=== PATIENT | male | born 1930 | race Caucasian/White ===

== ENCOUNTER 2018-10-07 19:47 | Emergency (ER) | payer MEDICARE, OTHER ==
[2018-10-07 20:06] VITALS: BP 121/81; PULSE 104
[2018-10-07] MEDS ORDERED: Sodium Chloride 0.9% 10 ML Syringe FLUSH PRN (20:06)
[2018-10-07] MEDS ORDERED: methylPREDNISolone Sodium Succinate 125 MG/2 ML SDV IVPUSH ONE (20:09)
[2018-10-07] MEDS ORDERED: diphenhydrAMINE 50 MG/ML SDV IVPUSH ONE (20:10)
[2018-10-07] MEDS ORDERED: Sodium Chloride 0.9% 1,000 ML IV SCH (20:15)
--- NOTE | 2018-10-07 20:57 | EDM.PDOC ---
ED HPI GENERAL MEDICAL PROBLEM - General Chief Complaint: Bite:Animal, Insect Stated Complaint: BEE STING ALLERGIC REACTION Time Seen by Provider: 10/07/18 20:03 Source of Information: Reports: Patient History Limitations: Reports: No Limitations - History of Present Illness INITIAL COMMENTS - FREE TEXT/NARRATIVE: stung by a bee, left eye. 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 He denies chest pain, sob, tongue or throat swelling- no increased WOB. Onset: Today Location: Reports: Face (left eye) Severity: Moderate Improves with: Reports: None Worsens with: Reports: None - Related Data Allergies Allergy/AdvReac Type Severity Reaction Status Date / Time propoxyphene HCl Allergy Nausea and Verified 10/07/18 19:58 [From Darvon] Vomiting venom-honey bee Allergy Anaphylactic Verified 10/07/18 19:58 [bee venom (honey bee)] Shock Home Meds: Home Meds Aspirin [Adult Low Dose Aspirin EC] 81 mg PO DAILY 02/17/13 [History] Lisinopril/Hydrochlorothiazide [Lisinopril-Hctz 20-25 mg Tab] 20 - 25 mg PO DAILY 02/17/13 [History] Propafenone [Rythmol] 225 mg PO DAILY 02/17/13 [History] Simvastatin [Zocor] 20 mg PO DAILY 02/17/13 [History] amLODIPine [Norvasc] 10 tab PO DAILY 02/17/13 [History] Past Medical History HEENT History: Reports: Macular Degeneration Cardiovascular History: Reports: Afib, CAD, High Cholesterol, Hypertension, [place] Respiratory History: Reports: Sleep Apnea Other Respiratory History: c-pap - Past Surgical History HEENT Surgical History: Reports: Oral Surgery Other HEENT Surgeries/Procedures: dentures GI Surgical History: Reports: Hernia Repair/Other Musculoskeletal Surgical History: Reports: Knee Replacement Other Musculoskeletal Surgeries/Procedures:: right and left Social & Family History - Tobacco Use Smoking Status *Q: Former Smoker Used Tobacco, but Quit: Yes Month/Year Tobacco Last Used: quit at age 44 - Caffeine Use Caffeine Use: Reports: Coffee - Recreational Drug Use Recreational Drug Use: No ED ROS GENERAL - Review of Systems Review Of Systems: See Below Constitutional: Reports: No Symptoms HEENT: Reports: Eye Pain (more itching than pain, is red and swollen) Respiratory: Reports: No Symptoms Cardiovascular: Reports: No Symptoms GI/Abdominal: Reports: No Symptoms : Reports: No Symptoms Musculoskeletal: Reports: No Symptoms Skin: Reports: Urticaria (left eye, swelling, red and itchy) Neurological: Reports: No Symptoms Psychiatric: Reports: No Symptoms Hematologic/Lymphatic: Reports: No Symptoms ED EXAM, ANIMAL BITE - Physical Exam Exam: See Below Exam Limited By: No Limitations General Appearance: Alert, WD/WN, No Apparent Distress Eye Exam: Left Eye: Other (left eye lid is swollen shut; red, warm and itchy; no discharge), Bilateral Eye: EOMI, PERRL Throat/Mouth: Normal Inspection, Normal Lips, Normal Teeth, Normal Gums, Normal Oropharynx, Normal Voice, No Airway Compromise Head: Atraumatic, Normocephalic Neck: Normal Inspection, Supple, Non-Tender Respiratory/Chest: No Respiratory Distress, Lungs Clear, Normal Breath Sounds Cardiovascular: Normal Peripheral Pulses, Regular Rate, Rhythm GI/Abdominal: Normal Bowel Sounds, Soft, Non-Tender Extremities: Normal Inspection, Normal Range of Motion, Non-Tender Neurological: Alert, Oriented, CN II-XII Intact, Normal Cognition, Normal Gait Psychiatric: Normal Affect, Normal Mood Skin Exam: Normal Color, Warm/Dry Course - Vital Signs Last Recorded V/S: Last Vital Signs Temp 97.9 F 10/07/18 19:55 Pulse 104 H 10/07/18 19:55 Resp 16 10/07/18 19:55 BP 121/81 10/07/18 19:55 Pulse Ox 95 10/07/18 19:55 - Orders/Labs/Meds Orders: Active Orders 24 hr Category Date Time Status Peripheral IV Care [RC] . DIRECTED Care 10/07/18 20:06 Active Sodium Chloride 0.9% [Normal Saline] 1,000 ml Med 10/07/18 20:15 Active IV ASDIRECTED Sodium Chloride 0.9% [Saline Flush] Med 10/07/18 20:06 Active 10 ml FLUSH ASDIRECTED PRN Peripheral IV Insertion Adult [OM.PC] Stat Oth 10/07/18 20:06 Ordered Medication Orders Sodium Chloride (Normal Saline) 1,000 mls @ 250 mls/hr IV ASDIRECTED MARCELO Last Admin: 10/07/18 20:34 Dose: 250 mls/hr Sodium Chloride (Saline Flush) 10 ml FLUSH ASDIRECTED PRN PRN Reason: Keep Vein Open Last Admin: 10/07/18 20:57 Dose: 10 ml Meds: Medications Generic Name Dose Route Start Last Admin Trade Name Jay PRN Reason Stop Dose Admin Sodium Chloride 1,000 mls @ 250 mls/hr 10/07/18 20:15 10/07/18 20:34 Normal Saline IV 250 mls/hr ASDIRECTED MARCELO Administration Sodium Chloride 10 ml 10/07/18 20:06 10/07/18 20:57 Saline Flush FLUSH 10 ml ASDIRECTED PRN Administration Keep Vein Open Discontinued Medications Generic Name Dose Route Start Last Admin Trade Name Jay PRN Reason Stop Dose Admin Diphenhydramine HCl 25 mg 10/07/18 20:10 10/07/18 20:35 Benadryl IVPUSH 10/07/18 20:11 25 mg ONETIME ONE Administration Methylprednisolone Sodium Succinate 125 mg 10/07/18 20:09 10/07/18 20:36 Solu-Medrol IVPUSH 10/07/18 20:10 125 mg ONETIME ONE Administration - Re-Assessments/Exams Free Text/Narrative Re-Assessment/Exam: 10/07/18 20:55 IV established; given NS, benadryl and solumedrol Resting comfortably. No airway concerns, denies feelings of SOB, swelling to lips, tongue or throat. Free Text/Narrative Re-Assessment/Exam: 10/07/18 21:05 His swelling has decreased significantly to the left eye; he is able to open his eye and see. States he feels good; no respiratory issues. Departure - Departure Time of Disposition: 21:45 Disposition: Home, Self-Care 01 Condition: Fair Clinical Impression: Bee sting reaction Qualifiers: Encounter type: initial encounter Injury intent: accidental or unintentional Qualified Code(s): T63.441A - Toxic effect of venom of bees, accidental ( unintentional), initial encounter - Discharge Information *PRESCRIPTION DRUG MONITORING PROGRAM REVIEWED*: Not Applicable *COPY OF PRESCRIPTION DRUG MONITORING REPORT IN PATIENT TYLER: Not Applicable Instructions: Anaphylactic Reaction, Adult, [id number], Bee, Wasp, or Hornet Sting, Adult Referrals: Jake Reyes, STERILE PREPARATION TECHNICIAN [Primary Care Provider] - Forms: ED Department Discharge Additional Instructions: Continue with Benadryl 25 mg every 6 hours for swelling and itching Drink plenty of water Use cool compress to affected area If you think your symptoms are getting worse, return to the ER. Follow up with your doctor as needed. Call with questions. - Problem List & Annotations (1) Bee sting reaction SNOMED Code(s): 875286303, [id number] Code(s): T63.441A - TOXIC EFFECT OF VENOM OF BEES, ACCIDENTAL, INIT Status : Acute Priority: Medium Current Visit: Yes Qualifiers: Encounter type: initial encounter Injury intent: accidental or unintentional Qualified Code(s): T63.441A - Toxic effect of venom of bees, accidental (unintentional), initial encounter - Problem List Review Problem List Initiated/Reviewed/Updated: Yes - My Orders Last 24 Hours: My Active Orders 10/07/18 20:06 Peripheral IV Care [RC] . DIRECTED Sodium Chloride 0.9% [Saline Flush] 10 ml FLUSH ASDIRECTED PRN Peripheral IV Insertion Adult [OM.PC] Stat 10/07/18 20:15 Sodium Chloride 0.9% [Normal Saline] 1,000 ml IV ASDIRECTED - Assessment/Plan Last 24 Hours: My Active Orders 10/07/18 20:06 Peripheral IV Care [RC] . DIRECTED Sodium Chloride 0.9% [Saline Flush] 10 ml FLUSH ASDIRECTED PRN Peripheral IV Insertion Adult [OM.PC] Stat 10/07/18 20:15 Sodium Chloride 0.9% [Normal Saline] 1,000 ml IV ASDIRECTED
== END 2018-10-07 21:38 | disposition home or self-care (01) ==
LOC: JP.ED 19:47
DX: T63.441A Toxic effect of venom of bees, accidental (unintentional), initial encounter (principal); I48.91 Unspecified atrial fibrillation; I25.10 Atherosclerotic heart disease of native coronary artery without angina pectoris; E78.00 Pure hypercholesterolemia, unspecified; I10 Essential (primary) hypertension; I25.2 Old myocardial infarction; Z79.899 Other long term (current) drug therapy; Z87.891 Personal history of nicotine dependence; Z79.82 Long term (current) use of aspirin; Z88.8 Allergy status to other drugs, medicaments and biological substances
CPT/HCPCS: 96361; 96374; 96375; 99282; J1200; J2930; J7030; 99284

== ENCOUNTER 2020-03-05 20:30 | Inpatient (IN) | payer MEDICARE, OTHER ==
[2020-03-05] MEDS ORDERED: Sodium Chloride 0.9% 10 ML Syringe FLUSH PRN ×2 (20:58→23:01)
[2020-03-05] MEDS ORDERED: Acetaminophen 325 MG Tab PO PRN (20:58)
[2020-03-05] MEDS ORDERED: Metoprolol Tartrate 5 MG/5 ML SDV IVPUSH ONE (21:10)
--- NOTE | 2020-03-05 21:19 | EDM.PDOC ---
ED HPI GENERAL MEDICAL PROBLEM - General Chief Complaint: Cardiovascular Problem Stated Complaint: FELL MEDICAL Time Seen by Provider: 03/05/20 20:50 Source of Information: Reports: Patient, RN Notes Reviewed History Limitations: Reports: No Limitations - History of Present Illness INITIAL COMMENTS - FREE TEXT/NARRATIVE: 89-year-old gentleman presents emergency department today via EMS services, he had fallen at home had gotten wedged between the counter and toilet was unable to get out estimated 1 hour time. He states he did not have a syncopal event he just was weak of note was found to have a fever and rapid heart rate around 150 in atrial fibrillation. The atrial fibrillation is not new he denies any palpitations chest pain or shortness of breath he denies any exposure to Covid symptoms Treatments CERTIFIED MEDICATION TECHNICIAN: Reports: EKG - Related Data Allergies Allergy/AdvReac Type Severity Reaction Status Date / Time propoxyphene HCl Allergy Nausea and Verified 03/05/20 20:41 [From Darvon] Vomiting venom-honey bee Allergy Anaphylactic Verified 03/05/20 20:41 [bee venom (honey bee)] Shock Home Meds: Home Meds Aspirin [Adult Low Dose Aspirin EC] 81 mg PO DAILY 02/17/13 [History] Lisinopril/Hydrochlorothiazide [Lisinopril-Hctz 20-25 mg Tab] 1 tab PO DAILY 02/17/13 [History] Propafenone [Rythmol] 225 mg PO DAILY 02/17/13 [History] Simvastatin [Zocor] 20 mg PO DAILY 02/17/13 [History] amLODIPine [Norvasc] 5 tab PO DAILY 02/17/13 [History] Ferrous Sulfate [Feosol] 325 mg PO DAILY 03/05/20 [History] Multivit-Min/FA/Lycopen/Lutein [Centrum Silver Men Tablet] 1 each PO DAILY 03/05/20 [History] Past Medical History HEENT History: Reports: Macular Degeneration Cardiovascular History: Reports: Afib, CAD, High Cholesterol, Hypertension, [place], Other (See Below) Other Cardiovascular History: Aortic valve sclerosis Respiratory History: Reports: Sleep Apnea Other Respiratory History: c-pap Genitourinary History: Reports: Other (See Below) Other Genitourinary History: nocturia Musculoskeletal History: Reports: Other (See Below) Other Musculoskeletal History: carpal tunnel syndrome Endocrine/Metabolic History: Reports: Obesity/BMI 30+, Other (See Below) Other Endocrine/Metabolic History: impaired fasting glucose Hematologic History: Reports: Anemia - Past Surgical History HEENT Surgical History: Reports: Oral Surgery Other HEENT Surgeries/Procedures: dentures GI Surgical History: Reports: Hernia Repair/Other Musculoskeletal Surgical History: Reports: Knee Replacement Other Musculoskeletal Surgeries/Procedures:: right and left Social & Family History - Tobacco Use Tobacco Use Status *Q: Former Tobacco User Used Tobacco, but Quit: Yes Month/Year Tobacco Last Used: 1979 - Caffeine Use Caffeine Use: Reports: Coffee - Recreational Drug Use Recreational Drug Use: No ED ROS GENERAL - Review of Systems Review Of Systems: See Below Constitutional: Reports: Fever HEENT: Reports: No Symptoms Respiratory: Reports: No Symptoms Cardiovascular: Reports: No Symptoms GI/Abdominal: Reports: No Symptoms Musculoskeletal: Reports: Shoulder Pain Skin: Reports: Bruising Neurological: Reports: No Symptoms ED EXAM, GENERAL - Physical Exam Exam: See Below Exam Limited By: No Limitations General Appearance: Alert, WD/WN, No Apparent Distress Respiratory/Chest: No Respiratory Distress, Lungs Clear, Normal Breath Sounds, No Accessory Muscle Use, Chest Non-Tender Cardiovascular: Tachycardia GI/Abdominal: Soft, Non-Tender Extremities: Pedal Edema Skin Exam: Other (Abrasion abdomen) Course - Vital Signs Last Recorded V/S: Last Vital Signs Temp 100.4 F 03/05/20 20:37 Pulse 90 03/05/20 21:55 Resp 21 H 03/05/20 21:36 BP 129/87 03/05/20 21:55 Pulse Ox 89 L 03/05/20 21:36 - Orders/Labs/Meds Orders: Active Orders 24 hr Category Date Time Status EKG Documentation Completion [RC] ASDIRECTED Care 03/05/20 21:00 Active Nurse Communication: Isolation [RC] ASDIRECTED Care 03/05/20 20:59 Active Nurse Communication: Isolation [RC] ASDIRECTED Care 03/05/20 21:58 Active Vital Signs [RC] Q1H Care 03/05/20 20:58 Active Chest 1V Frontal [CR] Stat Exams 03/05/20 20:58 Taken Shoulder Comp Rt [CR] Stat Exams 03/05/20 21:20 Taken CULTURE BLOOD [BC] Urgent Lab 03/05/20 20:45 Received CULTURE BLOOD [BC] Urgent Lab 03/05/20 20:53 Received HEPATIC FUNCTION PANEL,HFP [CHEM] DAILY Lab 03/06/20 22:00 Ordered HEPATIC FUNCTION PANEL,HFP [CHEM] DAILY Lab 03/07/20 22:00 Ordered HEPATIC FUNCTION PANEL,HFP [CHEM] DAILY Lab 03/08/20 22:00 Ordered HEPATIC FUNCTION PANEL,HFP [CHEM] DAILY Lab 03/09/20 22:00 Ordered REFLEX LACTIC ACID YES OR NO [CHEM] Routine Lab 03/05/20 21:28 Received UA W/MICROSCOPIC [URIN] Urgent Lab 03/05/20 20:58 Ordered Acetaminophen [TylenoL] Med 03/05/20 20:58 Active 650 mg PO Q4H PRN Sodium Chloride 0.9% [Saline Flush] Med 03/05/20 20:58 Active 10 ml FLUSH ASDIRECTED PRN dexAMETHasone [Decadron] Med 03/05/20 22:00 Active 6 mg IVPUSH DAILY Blood Culture x2 Reflex Set [OM.PC] Urgent Oth 03/05/20 20:58 Ordered Blood Culture x2 Reflex Set [OM.PC] Urgent Oth 03/05/20 20:58 Ordered Isolation [COMM] Stat Oth 03/05/20 21:58 Ordered Saline Lock Insert [OM.PC] Stat Oth 03/05/20 20:58 Ordered Severe Sepsis Onset Time [OM.PC] Stat Oth 03/05/20 20:58 Ordered EKG 12 Lead [EK] Stat Ther 03/05/20 20:58 Ordered Medication Orders Acetaminophen (Tylenol) 650 mg PO Q4H PRN PRN Reason: Fever Greater Than 101 Last Admin: 03/05/20 21:59 Dose: 650 mg Documented by: VALENTÍN Dexamethasone (Decadron) 6 mg IVPUSH DAILY MARCELO Stop: 03/14/20 09:01 Last Admin: 03/05/20 22:13 Dose: 6 mg Documented by: VALENTÍN Sodium Chloride (Saline Flush) 10 ml FLUSH ASDIRECTED PRN PRN Reason: Keep Vein Open Last Admin: 03/05/20 21:27 Dose: 10 ml Documented by: VALENTÍN Labs: Laboratory Tests 03/05/20 03/05/20 03/05/20 Range/Units 20:58 21:13 21:13 WBC 9.7 (4.5-11.0) K/uL RBC 4.31 (4.30-5.90) M/uL Hgb 12.6 (12.0-15.0) g/dL Hct 38.1 L (40.0-54.0) % MCV 88 (80-98) fL MCH 29 (27-31) pg MCHC 33 (32-36) % Plt Count 188 (150-400) K/uL Neut % (Auto) 92 H (36-66) % Lymph % (Auto) 3 L (24-44) % [place] % (Auto) 5 (2-6) % Eos % (Auto) 0 L (2-4) % Baso % (Auto) 0 (0-1) % PT (9.5-12.0) sec INR (0.80-1.20) D-Dimer, Quantitative 6425.93 H (0.0-500.0) ng/mL Sodium (140-148) mmol/L Potassium (3.6-5.2) mmol/L Chloride (100-108) mmol/L Carbon Dioxide (21-32) mmol/L Anion Gap (5.0-14.0) mmol/L BUN (7-18) mg/dL Creatinine (0.8-1.3) mg/dL Est Cr Clr Drug Dosing mL/min Estimated GFR (MDRD) (>60) Glucose (74-106) mg/dL Lactic Acid (0.4-2.0) mmol/L Calcium (8.5-10.1) mg/dL Ferritin 197 (8-388) ng/ml Total Bilirubin (0.2-1.0) mg/dL Direct Bilirubin (0.0-0.2) mg/dL Indirect Bilirubin AST (15-37) U/L ALT (12-78) U/L Alkaline Phosphatase (46-116) U/L Lactate Dehydrogenase (85-227) U/L Creatine Kinase (39-308) U/L Troponin I (0.000-0.056) ng/mL C-Reactive Protein (0.0-0.3) mg/dL Total Protein (6.4-8.2) g/dL Albumin (3.4-5.0) g/dL Globulin (2.3-3.5) g/dL Albumin/Globulin Ratio (1.2-2.2) Procalcitonin ng/mL SARS CoV-2 RNA Rapid GENI 03/05/20 03/05/20 03/05/20 Range/Units 21:13 21:13 21:13 WBC (4.5-11.0) K/uL RBC (4.30-5.90) M/uL Hgb (12.0-15.0) g/dL Hct (40.0-54.0) % MCV (80-98) fL MCH (27-31) pg MCHC (32-36) % Plt Count (150-400) K/uL Neut % (Auto) (36-66) % Lymph % (Auto) (24-44) % [place] % (Auto) (2-6) % Eos % (Auto) (2-4) % Baso % (Auto) (0-1) % PT (9.5-12.0) sec INR (0.80-1.20) D-Dimer, Quantitative (0.0-500.0) ng/mL Sodium 131 L (140-148) mmol/L Potassium 3.1 L (3.6-5.2) mmol/L Chloride 95 L (100-108) mmol/L Carbon Dioxide 21 (21-32) mmol/L Anion Gap 18.1 H (5.0-14.0) mmol/L BUN 17 (7-18) mg/dL Creatinine 1.3 (0.8-1.3) mg/dL Est Cr Clr Drug Dosing 33.52 mL/min Estimated GFR (MDRD) 52 L (>60) Glucose 180 H (74-106) mg/dL Lactic Acid 2.6 H (0.4-2.0) mmol/L Calcium 8.7 (8.5-10.1) mg/dL Ferritin (8-388) ng/ml Total Bilirubin 0.8 (0.2-1.0) mg/dL Direct Bilirubin 0.29 H (0.0-0.2) mg/dL Indirect Bilirubin 0.51 AST 64 H (15-37) U/L ALT 32 (12-78) U/L Alkaline Phosphatase 58 (46-116) U/L Lactate Dehydrogenase 299 H (85-227) U/L Creatine Kinase 1292 H (39-308) U/L Troponin I 0.209 H* (0.000-0.056) ng/mL C-Reactive Protein 7.47 H (0.0-0.3) mg/dL Total Protein 6.7 (6.4-8.2) g/dL Albumin 3.0 L (3.4-5.0) g/dL Globulin 3.7 H (2.3-3.5) g/dL Albumin/Globulin Ratio 0.8 L (1.2-2.2) Procalcitonin 0.26 ng/mL SARS CoV-2 RNA Rapid GENI 03/05/20 03/05/20 Range/Units 21:13 21:19 WBC (4.5-11.0) K/uL RBC (4.30-5.90) M/uL Hgb (12.0-15.0) g/dL Hct (40.0-54.0) % MCV (80-98) fL MCH (27-31) pg MCHC (32-36) % Plt Count (150-400) K/uL Neut % (Auto) (36-66) % Lymph % (Auto) (24-44) % [place] % (Auto) (2-6) % Eos % (Auto) (2-4) % Baso % (Auto) (0-1) % PT 12.0 (9.5-12.0) sec INR 1.10 (0.80-1.20) D-Dimer, Quantitative (0.0-500.0) ng/mL Sodium (140-148) mmol/L Potassium (3.6-5.2) mmol/L Chloride (100-108) mmol/L Carbon Dioxide (21-32) mmol/L Anion Gap (5.0-14.0) mmol/L BUN (7-18) mg/dL Creatinine (0.8-1.3) mg/dL Est Cr Clr Drug Dosing mL/min Estimated GFR (MDRD) (>60) Glucose (74-106) mg/dL Lactic Acid (0.4-2.0) mmol/L Calcium (8.5-10.1) mg/dL Ferritin (8-388) ng/ml Total Bilirubin (0.2-1.0) mg/dL Direct Bilirubin (0.0-0.2) mg/dL Indirect Bilirubin AST (15-37) U/L ALT (12-78) U/L Alkaline Phosphatase (46-116) U/L Lactate Dehydrogenase (85-227) U/L Creatine Kinase (39-308) U/L Troponin I (0.000-0.056) ng/mL C-Reactive Protein (0.0-0.3) mg/dL Total Protein (6.4-8.2) g/dL Albumin (3.4-5.0) g/dL Globulin (2.3-3.5) g/dL Albumin/Globulin Ratio (1.2-2.2) Procalcitonin ng/mL SARS CoV-2 RNA Rapid GENI Positive H Meds: Medications Generic Name Dose Route Start Last Admin Trade Name Freq PRN Reason Stop Dose Admin Acetaminophen 650 mg 03/05/20 20:58 03/05/20 21:59 Tylenol PO 650 mg Q4H PRN Administration Fever Greater Than 101 Dexamethasone 6 mg 03/05/20 22:00 03/05/20 22:13 Decadron IVPUSH 03/14/20 09:01 6 mg DAILY MARCELO Administration Sodium Chloride 10 ml 03/05/20 20:58 03/05/20 21:27 Saline Flush FLUSH 10 ml ASDIRECTED PRN Administration Keep Vein Open Discontinued Medications Generic Name Dose Route Start Last Admin Trade Name Freq PRN Reason Stop Dose Admin Remdesivir 200 mg/ Sodium 250 mls @ 250 mls/hr 03/05/20 21:57 Chloride IV 03/05/20 21:58 ONETIME ONE Metoprolol Tartrate 5 mg 03/05/20 21:10 03/05/20 21:28 Lopressor IVPUSH 03/05/20 21:11 5 mg ONETIME ONE Administration Departure - Departure Time of Disposition: 22:18 Disposition: Admitted As Inpatient 68 Condition: Fair Clinical Impression: COVID-19, Atrial fibrillation with RVR Referrals: PCP,None [Primary Care Provider] - Forms: ED Department Discharge Sepsis Event Note (ED) - Evaluation Sepsis Screening Result: Possible Sepsis Risk - Focused Exam Vital Signs: Vital Signs Temp Pulse Pulse Resp BP BP Pulse Ox 03/05/20 21:55 90 129/87 03/05/20 21:45 101 H 126/82 03/05/20 21:36 117 H 21 H 136/80 89 L 03/05/20 21:28 139 H 144/82 H 03/05/20 21:15 140 H 22 H 144/82 H 92 L 03/05/20 20:55 140 H 23 H 160/96 H 91 L 03/05/20 20:37 100.4 F 135 H 25 H 155/99 H 90 L - My Orders Last 24 Hours: My Active Orders 03/05/20 20:45 CULTURE BLOOD [BC] Urgent 03/05/20 20:53 CULTURE BLOOD [BC] Urgent 03/05/20 20:58 Vital Signs [RC] Q1H Chest 1V Frontal [CR] Stat UA W/MICROSCOPIC [URIN] Urgent Acetaminophen [TylenoL] 650 mg PO Q4H PRN Sodium Chloride 0.9% [Saline Flush] 10 ml FLUSH ASDIRECTED PRN Blood Culture x2 Reflex Set [OM.PC] Urgent Blood Culture x2 Reflex Set [OM.PC] Urgent Saline Lock Insert [OM.PC] Stat Severe Sepsis Onset Time [OM.PC] Stat EKG 12 Lead [EK] Stat 03/05/20 20:59 Nurse Communication: Isolation [RC] ASDIRECTED 03/05/20 21:00 EKG Documentation Completion [RC] ASDIRECTED 03/05/20 21:20 Shoulder Comp Rt [CR] Stat 03/05/20 21:28 REFLEX LACTIC ACID YES OR NO [CHEM] Routine 03/05/20 21:58 Nurse Communication: Isolation [RC] ASDIRECTED Isolation [COMM] Stat 03/05/20 22:00 dexAMETHasone [Decadron] 6 mg IVPUSH DAILY 03/06/20 22:00 HEPATIC FUNCTION PANEL,HFP [CHEM] DAILY 03/07/20 22:00 HEPATIC FUNCTION PANEL,HFP [CHEM] DAILY 03/08/20 22:00 HEPATIC FUNCTION PANEL,HFP [CHEM] DAILY 03/09/20 22:00 HEPATIC FUNCTION PANEL,HFP [CHEM] DAILY - Assessment/Plan Last 24 Hours: My Active Orders 03/05/20 20:45 CULTURE BLOOD [BC] Urgent 03/05/20 20:53 CULTURE BLOOD [BC] Urgent 03/05/20 20:58 Vital Signs [RC] Q1H Chest 1V Frontal [CR] Stat UA W/MICROSCOPIC [URIN] Urgent Acetaminophen [TylenoL] 650 mg PO Q4H PRN Sodium Chloride 0.9% [Saline Flush] 10 ml FLUSH ASDIRECTED PRN Blood Culture x2 Reflex Set [OM.PC] Urgent Blood Culture x2 Reflex Set [OM.PC] Urgent Saline Lock Insert [OM.PC] Stat Severe Sepsis Onset Time [OM.PC] Stat EKG 12 Lead [EK] Stat 03/05/20 20:59 Nurse Communication: Isolation [RC] ASDIRECTED 03/05/20 21:00 EKG Documentation Completion [RC] ASDIRECTED 03/05/20 21:20 Shoulder Comp Rt [CR] Stat 03/05/20 21:28 REFLEX LACTIC ACID YES OR NO [CHEM] Routine 03/05/20 21:58 Nurse Communication: Isolation [RC] ASDIRECTED Isolation [COMM] Stat 03/05/20 22:00 dexAMETHasone [Decadron] 6 mg IVPUSH DAILY 03/06/20 22:00 HEPATIC FUNCTION PANEL,HFP [CHEM] DAILY 03/07/20 22:00 HEPATIC FUNCTION PANEL,HFP [CHEM] DAILY 03/08/20 22:00 HEPATIC FUNCTION PANEL,HFP [CHEM] DAILY 03/09/20 22:00 HEPATIC FUNCTION PANEL,HFP [CHEM] DAILY Plan: Assessment Acuity = acute Site and laterality = positive Covid 19, atrial fibrillation with RVR complicating patient known history of coronary artery disease Etiology = probably related to the virus of Covid 19 Manifestations = weakness with a fall Location of injury = Home Lab values = D-dimer elevated 6425 related to inflammatory response sodium low at 131 consistent hyponatremia potassium low 3.1 consistent hypokalemia glucose elevated 180 consistent hyperglycemia lactic acid elevated 2.6 consistent with lactic acidosis ferritin level 197 direct bilirubin elevated 0.29 consistent hyperbilirubinemia LDH slightly elevated 290 CK elevated 1292 probably related to spending time on the floor troponin elevated 0.209 probably related to infl ammatory marker and atrial fibrillation with RVR consistent with a leak type pattern CRP elevated 7.47 procalcitonin elevated 0.26, coronavirus test was positive chest x-ray and and shoulder x-ray I did review films myself I cannot appreciate any acute process, the official read from radiology is pending. Plan Call discussed case Dr. Hartmann at [id number] he kindly agreed to come and evaluate the patient emergency department for admission, we did observe him to be hypoxic he did respond to oxygen therefore initiated remdesivir and dexamethasone while in the emergency department This note was dictated using [employer] voice recognition software please call with any questions on syntax or grammar.
[2020-03-05] MEDS ORDERED: REMDESIVIR 200 MG in Sodium Chloride 0.9% 250 ML IV ONE (21:57)
[2020-03-05] MEDS ORDERED: Dexamethasone 4 MG/ML SDV IVPUSH SCH (22:00)
--- NOTE | 2020-03-05 22:42 | CRLCR ---
Indication: Fall Technique: Three views of the right shoulder Comparison: None available Findings/Impression: Bones: No acute fracture or dislocation. Joint spaces: Arthritic changes in the glenohumeral joint with bony remodeling of the glenoid which could be related to chronic synovial hypertrophy. Correlate for inflammatory arthritis or deposition disease. An irregular calcification adjacent to the coracoid process could represent a loose intra-articular body. Acromioclavicular arthrosis. Soft tissues: Unremarkable. Dictated by Thomas Luevano MD @ 03/05/2020 10:41:11 PM Dictated by: Thomas Luevano MD @ 03/05/2020 22:41:22 (Electronically Signed)
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
[2020-03-06] MEDS ORDERED: Simvastatin 20 MG Tab PO SCH (09:00)
[2020-03-06] MEDS ORDERED: Potassium Chloride 20 MEQ Tab.ER PO ONE (09:15)
[2020-03-06] MEDS: Acetaminophen 325 MG Tab PO PRN ×2 (09:26→19:04)
[2020-03-06] MEDS: Enoxaparin 40 MG/0.4 ML Syringe SUBCUT SCH (09:28)
[2020-03-06] MEDS: Hydrochlorothiazide 25 MG Tab PO SCH (09:28)
[2020-03-06] MEDS: Lisinopril 20 MG Tab PO SCH (09:28)
[2020-03-06] MEDS: Aspirin 81 MG Tab.EC PO SCH (09:28)
[2020-03-06] MEDS: Ferrous Sulfate 325 MG Tab PO SCH (09:28)
[2020-03-06] MEDS: Multivitamins with Iron/Calcium/Folic Acid/Minerals Tab PO SCH (09:29)
[2020-03-06] MEDS: amLODIPine 5 MG Tab PO SCH (09:29)
[2020-03-06] MEDS ORDERED: Benzonatate 100 MG Cap PO PRN (09:57)
[2020-03-06] MEDS ORDERED: guaiFENesin/Dextromethorphan 100-10 MG/5 ML Soln 10 ML Cup PO PRN (09:57)
--- NOTE | 2020-03-06 10:01 | PCM.PN ---
- General Info Date of Service: 03/06/20 Subjective Update: No acute events overnight since admission. He is requiring a small amount of supplemental oxygen. He does not feel short of breath. Temperature curve has improved since admission. Heart rate has been borderline tachycardic but better controlled than at the time of admission. He is reporting diffuse arthralgias and myalgias but they are better today than yesterday. He is quite weak and has difficulty even lifting his arms. Troponin level slightly higher this morning but no chest pain. Vital signs are otherwise stable. Functional Status: Reports: Pain Controlled, Tolerating Diet - Review of Systems General: Reports: Fever Musculoskeletal: Reports: Joint Pain Neurological: Reports: Confusion - Patient Data Vitals - Most Recent: Last Vital Signs Temp 36.0 C L 03/06/20 08:00 Pulse 105 H 03/06/20 09:27 Resp 21 H 03/06/20 09:00 BP 131/61 03/06/20 09:29 Pulse Ox 98 03/06/20 09:00 Weight - Most Recent: 223.6 kg Lab Results Last 24 Hours: Laboratory Results - last 24 hr 03/05/20 03/05/20 03/05/20 Range/Units 20:58 21:13 21:13 WBC 9.7 (4.5-11.0) K/uL RBC 4.31 (4.30-5.90) M/uL Hgb 12.6 (12.0-15.0) g/dL Hct 38.1 L (40.0-54.0) % MCV 88 (80-98) fL MCH 29 (27-31) pg MCHC 33 (32-36) % Plt Count 188 (150-400) K/uL Neut % (Auto) 92 H (36-66) % Lymph % (Auto) 3 L (24-44) % [place] % (Auto) 5 (2-6) % Eos % (Auto) 0 L (2-4) % Baso % (Auto) 0 (0-1) % PT (9.5-12.0) sec INR (0.80-1.20) D-Dimer, Quantitative 6425.93 H (0.0-500.0) ng/mL Sodium (140-148) mmol/L Potassium (3.6-5.2) mmol/L Chloride (100-108) mmol/L Carbon Dioxide (21-32) mmol/L Anion Gap (5.0-14.0) mmol/L BUN (7-18) mg/dL Creatinine (0.8-1.3) mg/dL Est Cr Clr Drug Dosing mL/min Estimated GFR (MDRD) (>60) Glucose (74-106) mg/dL Lactic Acid (0.4-2.0) mmol/L Calcium (8.5-10.1) mg/dL Ferritin 197 (8-388) ng/ml Total Bilirubin (0.2-1.0) mg/dL Direct Bilirubin (0.0-0.2) mg/dL Indirect Bilirubin AST (15-37) U/L ALT (12-78) U/L Alkaline Phosphatase (46-116) U/L Lactate Dehydrogenase (85-227) U/L Creatine Kinase (39-308) U/L Troponin I (0.000-0.056) ng/mL C-Reactive Protein (0.0-0.3) mg/dL Total Protein (6.4-8.2) g/dL Albumin (3.4-5.0) g/dL Globulin (2.3-3.5) g/dL Albumin/Globulin Ratio (1.2-2.2) Procalcitonin ng/mL SARS CoV-2 RNA Rapid GENI 03/05/20 03/05/20 03/05/20 Range/Units 21:13 21:13 21:13 WBC (4.5-11.0) K/uL RBC (4.30-5.90) M/uL Hgb (12.0-15.0) g/dL Hct (40.0-54.0) % MCV (80-98) fL MCH (27-31) pg MCHC (32-36) % Plt Count (150-400) K/uL Neut % (Auto) (36-66) % Lymph % (Auto) (24-44) % [place] % (Auto) (2-6) % Eos % (Auto) (2-4) % Baso % (Auto) (0-1) % PT (9.5-12.0) sec INR (0.80-1.20) D-Dimer, Quantitative (0.0-500.0) ng/mL Sodium 131 L (140-148) mmol/L Potassium 3.1 L (3.6-5.2) mmol/L Chloride 95 L (100-108) mmol/L Carbon Dioxide 21 (21-32) mmol/L Anion Gap 18.1 H (5.0-14.0) mmol/L BUN 17 (7-18) mg/dL Creatinine 1.3 (0.8-1.3) mg/dL Est Cr Clr Drug Dosing 33.52 mL/min Estimated GFR (MDRD) 52 L (>60) Glucose 180 H (74-106) mg/dL Lactic Acid 2.6 H (0.4-2.0) mmol/L Calcium 8.7 (8.5-10.1) mg/dL Ferritin (8-388) ng/ml Total Bilirubin 0.8 (0.2-1.0) mg/dL Direct Bilirubin 0.29 H (0.0-0.2) mg/dL Indirect Bilirubin 0.51 AST 64 H (15-37) U/L ALT 32 (12-78) U/L Alkaline Phosphatase 58 (46-116) U/L Lactate Dehydrogenase 299 H (85-227) U/L Creatine Kinase 1292 H (39-308) U/L Troponin I 0.209 H* (0.000-0.056) ng/mL C-Reactive Protein 7.47 H (0.0-0.3) mg/dL Total Protein 6.7 (6.4-8.2) g/dL Albumin 3.0 L (3.4-5.0) g/dL Globulin 3.7 H (2.3-3.5) g/dL Albumin/Globulin Ratio 0.8 L (1.2-2.2) Procalcitonin 0.26 ng/mL SARS CoV-2 RNA Rapid GENI 03/05/20 03/05/20 03/06/20 Range/Units 21:13 21:19 01:41 WBC (4.5-11.0) K/uL RBC (4.30-5.90) M/uL Hgb (12.0-15.0) g/dL Hct (40.0-54.0) % MCV (80-98) fL MCH (27-31) pg MCHC (32-36) % Plt Count (150-400) K/uL Neut % (Auto) (36-66) % Lymph % (Auto) (24-44) % [place] % (Auto) (2-6) % Eos % (Auto) (2-4) % Baso % (Auto) (0-1) % PT 12.0 (9.5-12.0) sec INR 1.10 (0.80-1.20) D-Dimer, Quantitative (0.0-500.0) ng/mL Sodium (140-148) mmol/L Potassium (3.6-5.2) mmol/L Chloride (100-108) mmol/L Carbon Dioxide (21-32) mmol/L Anion Gap (5.0-14.0) mmol/L BUN (7-18) mg/dL Creatinine (0.8-1.3) mg/dL Est Cr Clr Drug Dosing mL/min Estimated GFR (MDRD) (>60) Glucose (74-106) mg/dL Lactic Acid 1.3 (0.4-2.0) mmol/L Calcium (8.5-10.1) mg/dL Ferritin (8-388) ng/ml Total Bilirubin (0.2-1.0) mg/dL Direct Bilirubin (0.0-0.2) mg/dL Indirect Bilirubin AST (15-37) U/L ALT (12-78) U/L Alkaline Phosphatase (46-116) U/L Lactate Dehydrogenase (85-227) U/L Creatine Kinase (39-308) U/L Troponin I (0.000-0.056) ng/mL C-Reactive Protein (0.0-0.3) mg/dL Total Protein (6.4-8.2) g/dL Albumin (3.4-5.0) g/dL Globulin (2.3-3.5) g/dL Albumin/Globulin Ratio (1.2-2.2) Procalcitonin ng/mL SARS CoV-2 RNA Rapid GENI Positive H 03/06/20 03/06/20 03/06/20 Range/Units 05:00 05:00 09:16 WBC 4.8 (4.5-11.0) K/uL RBC 4.55 (4.30-5.90) M/uL Hgb 13.1 (12.0-15.0) g/dL Hct 40.3 (40.0-54.0) % MCV 89 (80-98) fL MCH 29 (27-31) pg MCHC 33 (32-36) % Plt Count 128 L (150-400) K/uL Neut % (Auto) (36-66) % Lymph % (Auto) (24-44) % [place] % (Auto) (2-6) % Eos % (Auto) (2-4) % Baso % (Auto) (0-1) % PT (9.5-12.0) sec INR (0.80-1.20) D-Dimer, Quantitative (0.0-500.0) ng/mL Sodium 135 L (140-148) mmol/L Potassium 3.3 L (3.6-5.2) mmol/L Chloride 100 (100-108) mmol/L Carbon Dioxide 22 (21-32) mmol/L Anion Gap 16.3 H (5.0-14.0) mmol/L BUN 17 (7-18) mg/dL Creatinine 1.0 (0.8-1.3) mg/dL Est Cr Clr Drug Dosing 50.35 mL/min Estimated GFR (MDRD) > 60 (>60) Glucose 157 H (74-106) mg/dL Lactic Acid (0.4-2.0) mmol/L Calcium 8.6 (8.5-10.1) mg/dL Ferritin (8-388) ng/ml Total Bilirubin (0.2-1.0) mg/dL Direct Bilirubin (0.0-0.2) mg/dL Indirect Bilirubin AST (15-37) U/L ALT (12-78) U/L Alkaline Phosphatase (46-116) U/L Lactate Dehydrogenase (85-227) U/L Creatine Kinase 3099 H (39-308) U/L Troponin I (0.000-0.056) ng/mL C-Reactive Protein (0.0-0.3) mg/dL Total Protein (6.4-8.2) g/dL Albumin (3.4-5.0) g/dL Globulin (2.3-3.5) g/dL Albumin/Globulin Ratio (1.2-2.2) Procalcitonin ng/mL SARS CoV-2 RNA Rapid GENI 03/06/20 Range/Units 09:16 WBC (4.5-11.0) K/uL RBC (4.30-5.90) M/uL Hgb (12.0-15.0) g/dL Hct (40.0-54.0) % MCV (80-98) fL MCH (27-31) pg MCHC (32-36) % Plt Count (150-400) K/uL Neut % (Auto) (36-66) % Lymph % (Auto) (24-44) % [place] % (Auto) (2-6) % Eos % (Auto) (2-4) % Baso % (Auto) (0-1) % PT (9.5-12.0) sec INR (0.80-1.20) D-Dimer, Quantitative (0.0-500.0) ng/mL Sodium (140-148) mmol/L Potassium (3.6-5.2) mmol/L Chloride (100-108) mmol/L Carbon Dioxide (21-32) mmol/L Anion Gap (5.0-14.0) mmol/L BUN (7-18) mg/dL Creatinine (0.8-1.3) mg/dL Est Cr Clr Drug Dosing mL/min Estimated GFR (MDRD) (>60) Glucose (74-106) mg/dL Lactic Acid (0.4-2.0) mmol/L Calcium (8.5-10.1) mg/dL Ferritin (8-388) ng/ml Total Bilirubin (0.2-1.0) mg/dL Direct Bilirubin (0.0-0.2) mg/dL Indirect Bilirubin AST (15-37) U/L ALT (12-78) U/L Alkaline Phosphatase (46-116) U/L Lactate Dehydrogenase (85-227) U/L Creatine Kinase (39-308) U/L Troponin I 0.602 H* (0.000-0.056) ng/mL C-Reactive Protein (0.0-0.3) mg/dL Total Protein (6.4-8.2) g/dL Albumin (3.4-5.0) g/dL Globulin (2.3-3.5) g/dL Albumin/Globulin Ratio (1.2-2.2) Procalcitonin ng/mL SARS CoV-2 RNA Rapid GENI Med Orders - Current: Current Medications Acetaminophen (Tylenol) 650 mg PO Q4H PRN PRN Reason: Pain (Mild 1-3)/fever Last Admin: 03/06/20 09:26 Dose: 650 mg Documented by: Amlodipine Besylate (Norvasc) 5 mg PO DAILY [facility] Last Admin: 03/06/20 09:29 Dose: 5 mg Documented by: Aspirin (Halfprin) 81 mg PO DAILY [facility] Last Admin: 03/06/20 09:28 Dose: 81 mg Documented by: Dexamethasone (Decadron) 6 mg IVPUSH Q24H [facility] Stop: 03/14/20 18:01 Enoxaparin Sodium (Lovenox) 40 mg SUBCUT DAILY [facility] Last Admin: 03/06/20 09:28 Dose: 40 mg Documented by: Ferrous Sulfate (Ferrous Sulfate) 325 mg PO DAILY [facility] Last Admin: 03/06/20 09:28 Dose: 325 mg Documented by: Hydrochlorothiazide (Hydrochlorothiazide) 25 mg PO DAILY [facility] Last Admin: 03/06/20 09:28 Dose: 25 mg Documented by: Remdesivir 100 mg/ Sodium (Chloride) 100 mls @ 100 mls/hr IV Q24H [facility] Stop: 03/09/20 21:59 Lisinopril (Prinivil) 20 mg PO DAILY [facility] Last Admin: 03/06/20 09:28 Dose: 20 mg Documented by: Multivitamins/Minerals (Thera M Plus) 1 tab PO DAILY [facility] Last Admin: 03/06/20 09:29 Dose: 1 tab Documented by: Propafenone HCl (Rythmol) 225 mg PO DAILY [facility] Last Admin: 03/06/20 09:27 Dose: 225 mg Documented by: Simvastatin (Zocor) 20 mg PO BEDTIME [facility] Sodium Chloride (Saline Flush) 10 ml FLUSH ASDIRECTED PRN PRN Reason: Keep Vein Open Last Admin: 03/05/20 21:27 Dose: 10 ml Documented by: Sodium Chloride (Saline Flush) 10 ml FLUSH ASDIRECTED PRN PRN Reason: Keep Vein Open Discontinued Medications Acetaminophen (Tylenol) 650 mg PO Q4H PRN PRN Reason: Fever Greater Than 101 Last Admin: 03/05/20 21:59 Dose: 650 mg Documented by: Dexamethasone (Decadron) 6 mg IVPUSH DAILY [facility] Stop: 03/14/20 09:01 Last Admin: 03/05/20 22:13 Dose: 6 mg Documented by: Remdesivir 200 mg/ Sodium (Chloride) 250 mls @ 250 mls/hr IV ONETIME ONE Stop: 03/05/20 21:58 Last Admin: 03/05/20 22:17 Dose: 250 mls/hr Documented by: Metoprolol Tartrate (Lopressor) 5 mg IVPUSH ONETIME ONE Stop: 03/05/20 21:11 Last Admin: 03/05/20 21:28 Dose: 5 mg Documented by: Potassium Chloride (Klor-Con M20) 40 meq PO ONETIME ONE Stop: 03/06/20 09:16 Last Admin: 03/06/20 09:27 Dose: 40 meq Documented by: - Exam Quality Assessment: Supplemental Oxygen General: Alert, Cooperative, No Acute Distress. No: Oriented HEENT: Pupils Equal Lungs: Normal Respiratory Effort, Decreased Breath Sounds (mild both bases) Cardiovascular: Regular Rate, No Murmurs, Irregular Rhythm GI/Abdominal Exam: Normal Bowel Sounds, Soft, No Distention Extremities: No Pedal Edema. No: Increased Warmth Skin: Warm, Dry Psy/Mental Status: Alert, Normal Affect Sepsis Event Note - Evaluation Sepsis Screening Result: No Definite Risk - Focused Exam Vital Signs: Vital Signs Temp Pulse Pulse Resp BP BP Pulse Ox 03/06/20 09:29 131/61 03/06/20 09:28 131/81 03/06/20 09:27 105 H 03/06/20 09:00 96 21 H 117/74 98 03/06/20 08:00 36.0 C L 95 19 131/81 96 03/06/20 07:00 90 18 124/75 95 03/06/20 06:00 36.6 C 19 140/69 97 03/06/20 05:00 18 125/80 95 03/06/20 04:00 17 130/81 96 03/06/20 03:00 16 142/88 H 95 03/06/20 02:00 16 136/87 96 03/06/20 01:00 19 126/91 H 93 L 03/06/20 00:00 37.1 C 21 H 130/89 95 03/05/20 23:15 92 18 123/75 94 L 03/05/20 22:55 103 H 14 121/85 92 L 03/05/20 22:15 104 H 22 H 131/85 94 L - Problem List Review Problem List Initiated/Reviewed/Updated: Yes - My Orders Last 24 Hours: My Active Orders 03/06/20 09:57 Benzonatate [Tessalon Perles] 100 mg PO TID PRN Dextromethorphan/guaiFENesin [Robitussin DM] 10 ml PO Q4H PRN 03/06/20 09:58 Transfer Patient (Change bed) [ADT] Routine 03/06/20 09:59 Cardiac Monitoring [RC] .As Directed Overnight Pulse Oximetry [RC] Click to Edit Pulse Oximetry Continuous Monitoring [OM.PC] Routine 03/06/20 10:00 Metoprolol Tartrate [Lopressor] 25 mg PO Q12H 03/07/20 05:00 C-REACTIVE PROTEIN [CHEM] Timed CBC W/O DIFF,HEMOGRAM [HEME] Timed (1) COMPREHENSIVE METABOLIC PN,CMP [CHEM] Timed CREATINE KINASE,CK [CHEM] Timed D-DIMER QUANTITATIVE [COAG] Timed TROPONIN I [CHEM] Timed - Plan Plan:: ASSESSMENT AND PLAN - COVID-19 pneumonia with acute respiratory failure with hypoxia-manifestations including myalgias, arthralgias, weakness, hypoxia and rapid atrial fibrillation. Symptomatically is a little better today. Tolerating treatment so far. The infection was the likely cause for his delirium. -Continue remdesivir (day 2 of 5) -Continue dexamethasone (day 2) -Repeat labs in the morning -Isolation precautions -Symptomatic management of cough and shortness of breath -Supplement oxygen to keep sats greater than 90% Elevated troponin-mild elevation with only slight rise overnight is probably related to hypoxia and rapid atrial fibrillation in the setting of Covid pneumonia. He does have a mildly elevated CK level that is probably related to the mild troponin elevation rather than rhabdomyolysis. -Repeat level in the morning -Cardiac monitoring -Management as above Atrial fibrillation with rapid ventricular response-better rate control after a dose of IV metoprolol. Rate control still borderline. Blood pressure stable. -Add metoprolol twice daily -Continue propafenone -Cardiac monitoring Essential hypertension-blood pressure acceptable. -Continue home medications Maintenance issues - - DVT prophylaxis -enoxaparin - GI prophylaxis -not indicated - Nutrition -regular - Gan catheter -not indicated Disposition -I would anticipate discharge home versus possibly the custodial after the hospital stay Antonio Washington M.D.
[2020-03-06] MEDS: Metoprolol Tartrate 25 MG Tab PO SCH ×2 (11:26→21:03)
[2020-03-06] MEDS: Dexamethasone 4 MG/ML SDV IVPUSH SCH (18:16)
[2020-03-06] MEDS ORDERED: Albuterol 8 GM Inhaler INH PRN (18:52)
[2020-03-06] MEDS: Albuterol 8 GM Inhaler INH SCH (20:56)
[2020-03-06] MEDS: Simvastatin 20 MG Tab PO SCH (20:56)
[2020-03-06] MEDS: REMDESIVIR 100 MG in Sodium Chloride 0.9% 100 ML IV SCH (21:00)
[2020-03-07] MEDS: Acetaminophen 325 MG Tab PO PRN ×2 (09:05→16:01)
[2020-03-07] MEDS: Enoxaparin 40 MG/0.4 ML Syringe SUBCUT SCH (09:06)
[2020-03-07] MEDS: Multivitamins with Iron/Calcium/Folic Acid/Minerals Tab PO SCH (09:06)
[2020-03-07] MEDS: Aspirin 81 MG Tab.EC PO SCH (09:06)
[2020-03-07] MEDS: Ferrous Sulfate 325 MG Tab PO SCH (09:06)
[2020-03-07] MEDS: Metoprolol Tartrate 25 MG Tab PO SCH ×2 (09:07→21:13)
[2020-03-07] MEDS: Hydrochlorothiazide 25 MG Tab PO SCH (09:08)
[2020-03-07] MEDS: Lisinopril 20 MG Tab PO SCH (09:08)
[2020-03-07] MEDS: amLODIPine 5 MG Tab PO SCH (09:09)
[2020-03-07] MEDS: Albuterol 8 GM Inhaler INH SCH ×4 (09:09→21:14)
--- NOTE | 2020-03-07 11:40 | PCM.PN ---
- General Info Date of Service: 03/07/20 Subjective Update: Patient had an episode yesterday evening with increased respiratory rate, wheezing and increased hypoxia. This resolved with DuoNeb inhaler in some time. He was off oxygen for a while but is back on 3 L this morning. He says that he feels well. He does not feel short of breath. No complaints of nausea or abdominal pain. No fever this morning. Appetite good. He has discomfort in both shoulders and is unable to lift either of his shoulders above more than about 45 degrees. He says this has been the case for a while. Tolerating steroids and remdesivir so far. Functional Status: Reports: Pain Controlled, Tolerating Diet - Review of Systems General: Reports: Weakness Musculoskeletal: Reports: Shoulder Pain (both shoulders) - Patient Data Vitals - Most Recent: Last Vital Signs Temp 35.9 C L 03/07/20 10:39 Pulse 89 03/07/20 10:39 Resp 18 03/07/20 10:39 BP 116/51 L 03/07/20 10:39 Pulse Ox 96 03/07/20 10:39 Weight - Most Recent: 101.605 kg I&O - Last 24 Hours: Intake & Output 03/06/20 03/07/20 03/07/20 22:59 06:59 14:59 Intake Total 836 260 Output Total 200 Balance 636 260 Lab Results Last 24 Hours: Laboratory Results - last 24 hr 03/06/20 03/07/20 03/07/20 Range/Units 16:20 06:10 06:10 WBC 8.5 (4.5-11.0) K/uL RBC 4.32 (4.30-5.90) M/uL Hgb 12.2 (12.0-15.0) g/dL Hct 38.9 L (40.0-54.0) % MCV 90 (80-98) fL MCH 28 (27-31) pg MCHC 31 L (32-36) % Plt Count 178 (150-400) K/uL D-Dimer, Quantitative 3587.96 H (0.0-500.0) ng/mL Sodium (140-148) mmol/L Potassium (3.6-5.2) mmol/L Chloride (100-108) mmol/L Carbon Dioxide (21-32) mmol/L Anion Gap (5.0-14.0) mmol/L BUN (7-18) mg/dL Creatinine (0.8-1.3) mg/dL Est Cr Clr Drug Dosing mL/min Estimated GFR (MDRD) (>60) Glucose (74-106) mg/dL Calcium (8.5-10.1) mg/dL Total Bilirubin (0.2-1.0) mg/dL AST (15-37) U/L ALT (12-78) U/L Alkaline Phosphatase (46-116) U/L Creatine Kinase (39-308) U/L Troponin I (0.000-0.056) ng/mL C-Reactive Protein (0.0-0.3) mg/dL Total Protein (6.4-8.2) g/dL Albumin (3.4-5.0) g/dL Globulin (2.3-3.5) g/dL Albumin/Globulin Ratio (1.2-2.2) Urine Color Yellow (YELLOW) Urine Appearance Clear (CLEAR) Urine pH 6.0 (5.0-8.0) Ur Specific [place] 1.025 (1.008-1.030) Urine Protein 100 H (NEGATIVE) mg/dL Urine Glucose (UA) Negative (NEGATIVE) mg/dL Urine Ketones Negative (NEGATIVE) mg/dL Urine Occult Blood Large H (NEGATIVE) Urine Nitrite Positive H (NEGATIVE) Urine Bilirubin Negative (NEGATIVE) Urine Urobilinogen 1.0 (0.2-1.0) EU/dL Ur Leukocyte Esterase Trace H (NEGATIVE) Urine RBC 5-10 H (0-5) Urine WBC 10-20 H (0-5) Ur Epithelial Cells Not seen Amorphous Sediment Few Urine Bacteria Few Blood Type 03/07/20 03/07/20 Range/Units 06:10 10:56 WBC (4.5-11.0) K/uL RBC (4.30-5.90) M/uL Hgb (12.0-15.0) g/dL Hct (40.0-54.0) % MCV (80-98) fL MCH (27-31) pg MCHC (32-36) % Plt Count (150-400) K/uL D-Dimer, Quantitative (0.0-500.0) ng/mL Sodium 136 L (140-148) mmol/L Potassium 4.1 (3.6-5.2) mmol/L Chloride 100 (100-108) mmol/L Carbon Dioxide 27 (21-32) mmol/L Anion Gap 13.1 (5.0-14.0) mmol/L BUN 26 H D (7-18) mg/dL Creatinine 1.1 (0.8-1.3) mg/dL Est Cr Clr Drug Dosing 45.77 mL/min Estimated GFR (MDRD) > 60 (>60) Glucose 143 H (74-106) mg/dL Calcium 9.2 (8.5-10.1) mg/dL Total Bilirubin 0.5 (0.2-1.0) mg/dL AST 142 H D (15-37) U/L ALT 70 D (12-78) U/L Alkaline Phosphatase 46 (46-116) U/L Creatine Kinase 2167 H (39-308) U/L Troponin I 0.361 H* (0.000-0.056) ng/mL C-Reactive Protein 8.03 H (0.0-0.3) mg/dL Total Protein 6.0 L (6.4-8.2) g/dL Albumin 2.4 L (3.4-5.0) g/dL Globulin 3.6 H (2.3-3.5) g/dL Albumin/Globulin Ratio 0.7 L (1.2-2.2) Urine Color (YELLOW) Urine Appearance (CLEAR) Urine pH (5.0-8.0) Ur Specific [place] (1.008-1.030) Urine Protein (NEGATIVE) mg/dL Urine Glucose (UA) (NEGATIVE) mg/dL Urine Ketones (NEGATIVE) mg/dL Urine Occult Blood (NEGATIVE) Urine Nitrite (NEGATIVE) Urine Bilirubin (NEGATIVE) Urine Urobilinogen (0.2-1.0) EU/dL Ur Leukocyte Esterase (NEGATIVE) Urine RBC (0-5) Urine WBC (0-5) Ur Epithelial Cells Amorphous Sediment Urine Bacteria Blood Type A NEGATIVE Brock Results Last 24 Hours: Microbiology 03/05/20 20:45 Aerobic Blood Culture - Preliminary Blood - Arm, Right NO GROWTH AFTER 1 DAY Anaerobic Blood Culture - Preliminary NO GROWTH AFTER 1 DAY 03/05/20 20:53 Aerobic Blood Culture - Preliminary Blood - Venous - Iv Start NO GROWTH AFTER 1 DAY Anaerobic Blood Culture - Preliminary NO GROWTH AFTER 1 DAY Med Orders - Current: Current Medications Acetaminophen (Tylenol) 650 mg PO Q4H PRN PRN Reason: Pain (Mild 1-3)/fever Last Admin: 03/07/20 09:05 Dose: 650 mg Documented by: Albuterol (Ventolin Hfa) [address] [facility] Last Admin: 03/07/20 09:09 Dose: 2 puff Documented by: Albuterol (Ventolin Hfa) 0 gm INH Q4H PRN PRN Reason: Dyspnea Last Admin: 03/06/20 19:05 Dose: 2 puff Documented by: Amlodipine Besylate (Norvasc) [address] [facility] Last Admin: 03/07/20 09:09 Dose: 5 mg Documented by: Aspirin (Halfprin) [address] [facility] Last Admin: 03/07/20 09:06 Dose: 81 mg Documented by: Benzonatate (Tessalon Perles) 100 mg PO TID PRN PRN Reason: Cough Dexamethasone (Decadron) [address] [facility] Stop: 03/14/20 18:01 Last Admin: 03/06/20 18:16 Dose: 6 mg Documented by: Enoxaparin Sodium (Lovenox) [address] [facility] Last Admin: 03/07/20 09:06 Dose: 40 mg Documented by: Ferrous Sulfate (Ferrous Sulfate) [address] [facility] Last Admin: 03/07/20 09:06 Dose: 325 mg Documented by: Guaifenesin/Dextromethorphan (Robitussin Dm) 10 ml PO Q4H PRN PRN Reason: Cough Last Admin: 03/06/20 19:05 Dose: 10 ml Documented by: Hydrochlorothiazide (Hydrochlorothiazide) [address] [facility] Last Admin: 03/07/20 09:08 Dose: 25 mg Documented by: Remdesivir 100 mg/ Sodium (Chloride) 100 mls @ 100 mls/hr IV Q24H [facility] Stop: 03/09/20 21:59 Last Admin: 03/06/20 21:00 Dose: 100 mls/hr Documented by: Lisinopril (Prinivil) [address] [facility] Last Admin: 03/07/20 09:08 Dose: 20 mg Documented by: Metoprolol Tartrate (Lopressor) [address] [facility] Last Admin: 03/07/20 09:07 Dose: 25 mg Documented by: Multivitamins/Minerals (Thera M Plus) [address] [facility] Last Admin: 03/07/20 09:06 Dose: 1 tab Documented by: Propafenone HCl (Rythmol) [address] [facility] Last Admin: 03/07/20 09:08 Dose: 225 mg Documented by: Simvastatin (Zocor) [address] [facility] Last Admin: 03/06/20 20:56 Dose: 20 mg Documented by: Sodium Chloride (Saline Flush) 10 ml FLUSH ASDIRECTED PRN PRN Reason: Keep Vein Open Last Admin: 03/05/20 21:27 Dose: 10 ml Documented by: Sodium Chloride (Saline Flush) 10 ml FLUSH ASDIRECTED PRN PRN Reason: Keep Vein Open Discontinued Medications Acetaminophen (Tylenol) 650 mg PO Q4H PRN PRN Reason: Fever Greater Than 101 Last Admin: 03/05/20 21:59 Dose: 650 mg Documented by: Dexamethasone (Decadron) [address] [facility] Stop: 03/14/20 09:01 Last Admin: 03/05/20 22:13 Dose: 6 mg Documented by: Remdesivir 200 mg/ Sodium (Chloride) 250 mls @ 250 mls/hr IV ONETIME ONE Stop: 03/05/20 21:58 Last Admin: 03/05/20 22:17 Dose: 250 mls/hr Documented by: Metoprolol Tartrate (Lopressor) 5 mg IVPUSH ONETIME ONE Stop: 03/05/20 21:11 Last Admin: 03/05/20 21:28 Dose: 5 mg Documented by: Potassium Chloride (Klor-Con M20) 40 meq PO ONETIME ONE Stop: 03/06/20 09:16 Last Admin: 03/06/20 09:27 Dose: 40 meq Documented by: - Exam Quality Assessment: Supplemental Oxygen General: Alert, Cooperative, No Acute Distress Lungs: Normal Respiratory Effort, Crackles (both bases) Cardiovascular: Regular Rate, Regular Rhythm, Murmurs GI/Abdominal Exam: Soft, No Distention Extremities: Pedal Edema (mild bilateral ankle edema ). No: Increased Warmth Skin: Warm, Dry Psy/Mental Status: Alert, Normal Affect Sepsis Event Note - Evaluation Sepsis Screening Result: No Definite Risk - Focused Exam Vital Signs: Vital Signs Temp Pulse Pulse Resp BP BP Pulse Ox 03/07/20 10:39 35.9 C L 89 18 116/51 L 96 03/07/20 09:32 03/07/20 09:09 132/71 03/07/20 09:08 87 132/71 03/07/20 09:07 87 132/71 03/07/20 07:00 35.7 C L 87 18 132/71 93 L 03/07/20 03:28 35.7 C L 88 18 129/81 94 L 03/07/20 01:15 96 Pulse Ox 03/07/20 10:39 03/07/20 09:32 93 L 03/07/20 09:09 03/07/20 09:08 03/07/20 09:07 03/07/20 07:00 03/07/20 03:28 03/07/20 01:15 - Problem List Review Problem List Initiated/Reviewed/Updated: Yes - My Orders Last 24 Hours: My Active Orders 03/06/20 18:51 RT Post Treatment Assessment [RC] Click to Edit 03/06/20 18:52 Albuterol [Ventolin HFA] 0 gm INH Q4H PRN 03/06/20 21:00 Albuterol [Ventolin HFA] 0 gm INH QIDRT 03/07/20 09:57 Verify Patient Consent Obtain [RC] ASDIRECTED Transfuse Fresh Frozen Plasma [COMM] Routine 03/07/20 10:56 ABO/RH TYPE [BBK] Routine PATIENT RETYPE [BBK] Routine 03/07/20 11:26 FRESH FROZEN PLASMA [BBK] Routine 03/08/20 05:00 COMPREHENSIVE METABOLIC PN,CMP [CHEM] Timed TROPONIN I [CHEM] Timed 03/08/20 07:00 PT Evaluation and Treatment [CONS] Routine 03/08/20 09:57 Transfuse Fresh Frozen Plasma [COMM] Routine 03/09/20 09:57 Transfuse Fresh Frozen Plasma [COMM] Routine - Plan Plan:: ASSESSMENT AND PLAN - COVID-19 pneumonia with acute respiratory failure with hypoxia-manifestations including myalgias, arthralgias, weakness, hypoxia and rapid atrial fibrillation. Symptomatically is a little better today. Continues to require supplemental oxygen but overall seems to be doing okay. Inflammatory markers improving. -Continue remdesivir (day 3 of 5) -Continue dexamethasone (day 3) -Starting plasma today for 3 days -Enoxaparin -Repeat labs every other day -Isolation precautions -Symptomatic management of cough and shortness of breath -Supplement oxygen to keep sats greater than 90% Elevated troponin-mild elevation with only slight rise overnight is probably related to hypoxia and rapid atrial fibrillation in the setting of Covid pneumonia. He does have a mildly elevated CK level that is probably related to the mild troponin elevation rather than rhabdomyolysis. -Repeat level in the morning -Cardiac monitoring -Management as above Atrial fibrillation with rapid ventricular response-better rate control with metoprolol. -Continue metoprolol twice daily -Continue propafenone -Cardiac monitoring Essential hypertension-blood pressure acceptable. -Continue home medications Maintenance issues - - DVT prophylaxis -enoxaparin - GI prophylaxis -not indicated - Nutrition -regular - Gan catheter -not indicated Disposition -I would anticipate discharge home versus possibly the detention after the hospital stay Antonio Washington M.D.
[2020-03-07] MEDS: Dexamethasone 4 MG/ML SDV IVPUSH SCH (17:10)
[2020-03-07] MEDS ORDERED: Hypromellose 0.3% Ophth Soln 15 ML Bottle EYEBOTH PRN (20:44)
[2020-03-07] MEDS: Simvastatin 20 MG Tab PO SCH (21:14)
[2020-03-07] MEDS: REMDESIVIR 100 MG in Sodium Chloride 0.9% 100 ML IV SCH (21:18)
[2020-03-08] MEDS: Enoxaparin 40 MG/0.4 ML Syringe SUBCUT SCH (08:56)
[2020-03-08] MEDS: Albuterol 8 GM Inhaler INH SCH ×4 (08:57→20:34)
[2020-03-08] MEDS: Multivitamins with Iron/Calcium/Folic Acid/Minerals Tab PO SCH (08:58)
[2020-03-08] MEDS: amLODIPine 5 MG Tab PO SCH (08:58)
[2020-03-08] MEDS: Ferrous Sulfate 325 MG Tab PO SCH (08:58)
[2020-03-08] MEDS: Aspirin 81 MG Tab.EC PO SCH (08:58)
[2020-03-08] MEDS: Lisinopril 20 MG Tab PO SCH (08:58)
[2020-03-08] MEDS: Metoprolol Tartrate 25 MG Tab PO SCH ×2 (08:59→22:44)
[2020-03-08] MEDS: Hydrochlorothiazide 25 MG Tab PO SCH (08:59)
--- NOTE | 2020-03-08 09:07 | CR ---
CHEST: Portable 03/05/2020 at 9:25 PM CLINICAL HISTORY:Fever COMPARISON:2006 FINDINGS: There is patchy perihilar infiltrate on the left. There is patchy infiltrate in the left lower lobe as well as the right infrahilar region. Heart size and pulmonary vascularity are normal. There are atherosclerotic changes in the aorta.. Impression: Patchy bilateral pneumonic infiltrates superimposed over some chronic lung changes.
[2020-03-08] MEDS: cefTRIAXone 1 GM in Sodium Chloride 0.9% 50 ML IV SCH (14:35)
[2020-03-08] MEDS: Lactobacillus Rhamnosus GG (Probiotic) Cap PO SCH ×2 (14:36→20:33)
--- NOTE | 2020-03-08 16:02 | PCM.PN ---
- General Info Date of Service: 03/08/20 Subjective Update: Mr. Infante continues to require supplemental oxygen. Otherwise he reports feeling improved with less shortness of breath, improved energy level and appetite. Continues to experience confusion, but no significant agitation. Functional Status: Reports: Tolerating Diet, Ambulating, Urinating - Review of Systems General: Reports: Weakness, Fatigue. Denies: Fever, Chills Pulmonary: Reports: Shortness of Breath. Denies: Cough, Sputum, Hemoptysis, Wheezing Cardiovascular: Reports: No Symptoms Gastrointestinal: Reports: No Symptoms - Patient Data Vitals - Most Recent: Last Vital Signs Temp 96.4 F L 03/08/20 11:20 Pulse 78 03/08/20 11:20 Resp 18 03/08/20 11:20 BP 94/58 L 03/08/20 11:20 Pulse Ox 95 03/08/20 13:51 Weight - Most Recent: 224 lb 0.011 oz I&O - Last 24 Hours: Intake & Output 03/08/20 03/08/20 03/08/20 06:59 14:59 22:59 Intake Total 980 Output Total 400 300 Balance -400 680 Lab Results Last 24 Hours: Laboratory Results - last 24 hr 03/08/20 Range/Units 06:14 Sodium 138 L (140-148) mmol/L Potassium 3.7 (3.6-5.2) mmol/L Chloride 101 (100-108) mmol/L Carbon Dioxide 28 (21-32) mmol/L Anion Gap 12.7 (5.0-14.0) mmol/L BUN 25 H (7-18) mg/dL Creatinine 1.1 (0.8-1.3) mg/dL Est Cr Clr Drug Dosing 45.77 mL/min Estimated GFR (MDRD) > 60 (>60) Glucose 140 H (74-106) mg/dL Calcium 9.0 (8.5-10.1) mg/dL Total Bilirubin 0.4 (0.2-1.0) mg/dL AST 137 H (15-37) U/L ALT 82 H (12-78) U/L Alkaline Phosphatase 47 (46-116) U/L Troponin I 0.196 H* (0.000-0.056) ng/mL Total Protein 5.7 L (6.4-8.2) g/dL Albumin 2.4 L (3.4-5.0) g/dL Globulin 3.3 (2.3-3.5) g/dL Albumin/Globulin Ratio 0.7 L (1.2-2.2) Brock Results Last 24 Hours: Microbiology 03/05/20 20:45 Aerobic Blood Culture - Preliminary Blood - Arm, Right NO GROWTH AFTER 2 DAYS Anaerobic Blood Culture - Preliminary NO GROWTH AFTER 2 DAYS 03/05/20 20:53 Aerobic Blood Culture - Preliminary Blood - Venous - Iv Start NO GROWTH AFTER 2 DAYS Anaerobic Blood Culture - Preliminary NO GROWTH AFTER 2 DAYS Med Orders - Current: Current Medications Acetaminophen (Tylenol) 650 mg PO Q4H PRN PRN Reason: Pain (Mild 1-3)/fever Last Admin: 03/07/20 16:01 Dose: 650 mg Documented by: Albuterol (Ventolin Hfa) 0 gm INH QIDRT [facility] Last Admin: 03/08/20 14:36 Dose: 2 puff Documented by: Albuterol (Ventolin Hfa) 0 gm INH Q4H PRN PRN Reason: Dyspnea Last Admin: 03/06/20 19:05 Dose: 2 puff Documented by: Amlodipine Besylate (Norvasc) 5 mg PO DAILY [facility] Last Admin: 03/08/20 08:58 Dose: 5 mg Documented by: Artificial Tears (Genteal Mild To Moderate Ophth Soln) 1 ml EYEBOTH Q1H PRN PRN Reason: Dryness Aspirin (Halfprin) 81 mg PO DAILY [facility] Last Admin: 03/08/20 08:58 Dose: 81 mg Documented by: Benzonatate (Tessalon Perles) 100 mg PO TID PRN PRN Reason: Cough Dexamethasone (Decadron) 6 mg IVPUSH Q24H [facility] Stop: 03/14/20 18:01 Last Admin: 03/07/20 17:10 Dose: 6 mg Documented by: Enoxaparin Sodium (Lovenox) 40 mg SUBCUT DAILY [facility] Last Admin: 03/08/20 08:56 Dose: 40 mg Documented by: Ferrous Sulfate (Ferrous Sulfate) 325 mg PO DAILY [facility] Last Admin: 03/08/20 08:58 Dose: 325 mg Documented by: Guaifenesin/Dextromethorphan (Robitussin Dm) 10 ml PO Q4H PRN PRN Reason: Cough Last Admin: 03/06/20 19:05 Dose: 10 ml Documented by: Hydrochlorothiazide (Hydrochlorothiazide) 25 mg PO DAILY [facility] Last Admin: 03/08/20 08:59 Dose: 25 mg Documented by: Remdesivir 100 mg/ Sodium (Chloride) 100 mls @ 100 mls/hr IV Q24H [facility] Stop: 03/09/20 21:59 Last Admin: 03/07/20 21:18 Dose: 100 mls/hr Documented by: Ceftriaxone Sodium 1 gm/ (Sodium Chloride) 50 mls @ 100 mls/hr IV Q24H [facility] Last Admin: 03/08/20 14:35 Dose: 100 mls/hr Documented by: Lactobacillus Rhamnosus (Culturelle) 1 cap PO BID [facility] Last Admin: 03/08/20 14:36 Dose: 1 cap Documented by: Lisinopril (Prinivil) 20 mg PO DAILY [facility] Last Admin: 03/08/20 08:58 Dose: 20 mg Documented by: Metoprolol Tartrate (Lopressor) 25 mg PO Q12H [facility] Last Admin: 03/08/20 08:59 Dose: 25 mg Documented by: Multivitamins/Minerals (Thera M Plus) 1 tab PO DAILY [facility] Last Admin: 03/08/20 08:58 Dose: 1 tab Documented by: Propafenone HCl (Rythmol) 225 mg PO DAILY [facility] Last Admin: 03/08/20 08:58 Dose: 225 mg Documented by: Simvastatin (Zocor) 20 mg PO BEDTIME [facility] Last Admin: 03/07/20 21:14 Dose: 20 mg Documented by: Sodium Chloride (Saline Flush) 10 ml FLUSH ASDIRECTED PRN PRN Reason: Keep Vein Open Discontinued Medications Acetaminophen (Tylenol) 650 mg PO Q4H PRN PRN Reason: Fever Greater Than 101 Last Admin: 03/05/20 21:59 Dose: 650 mg Documented by: Dexamethasone (Decadron) 6 mg IVPUSH DAILY [facility] Stop: 03/14/20 09:01 Last Admin: 03/05/20 22:13 Dose: 6 mg Documented by: Remdesivir 200 mg/ Sodium (Chloride) 250 mls @ 250 mls/hr IV ONETIME ONE Stop: 03/05/20 21:58 Last Admin: 03/05/20 22:17 Dose: 250 mls/hr Documented by: Metoprolol Tartrate (Lopressor) 5 mg IVPUSH ONETIME ONE Stop: 03/05/20 21:11 Last Admin: 03/05/20 21:28 Dose: 5 mg Documented by: Potassium Chloride (Klor-Con M20) 40 meq PO ONETIME ONE Stop: 03/06/20 09:16 Last Admin: 03/06/20 09:27 Dose: 40 meq Documented by: Sodium Chloride (Saline Flush) 10 ml FLUSH ASDIRECTED PRN PRN Reason: Keep Vein Open Last Admin: 03/05/20 21:27 Dose: 10 ml Documented by: - Exam Quality Assessment: Supplemental Oxygen, DVT Prophylaxis General: Alert, Cooperative, Mild Distress. No: Oriented Lungs: Clear to Auscultation, Normal Respiratory Effort Cardiovascular: Regular Rate, Regular Rhythm, No Murmurs GI/Abdominal Exam: Soft, Non-Tender, No Organomegaly, No Distention Extremities: Non-Tender, No Pedal Edema Sepsis Event Note - Evaluation Sepsis Screening Result: No Definite Risk - Focused Exam Vital Signs: Vital Signs Temp Pulse Pulse Resp BP BP Pulse Ox 03/08/20 13:51 95 03/08/20 11:20 96.4 F L 78 18 94/58 L 97 03/08/20 08:59 75 136/81 03/08/20 08:58 75 136/81 03/08/20 08:36 95.6 F L 75 18 136/81 96 03/08/20 07:16 94 L - Problem List Review Problem List Initiated/Reviewed/Updated: Yes - My Orders Last 24 Hours: My Active Orders 03/08/20 12:41 CULTURE URINE [RM] Stat 03/08/20 12:45 Lactobacillus Rhamnosus GG [Culturelle] 1 cap PO BID 03/08/20 13:00 cefTRIAXone [Rocephin] 1 gm Sodium Chloride 0.9% [Normal Saline] 50 ml IV Q24H 03/09/20 05:00 CBC WITH AUTO DIFF [HEME] Timed COMPREHENSIVE METABOLIC PN,CMP [CHEM] Timed CREATINE KINASE,CK [CHEM] Timed TROPONIN I [CHEM] Timed 03/09/20 05:11 CRP [C-REACTIVE PROTEIN] [CHEM] AM D Dimer [D-DIMER QUANTITATIVE] [COAG] AM - Plan Plan:: ASSESSMENT AND PLAN - COVID-19 pneumonia with acute respiratory failure with hypoxia-manifestations including myalgias, arthralgias, weakness, hypoxia and rapid atrial fibrillation. Slow improvement in symptoms over the past few days -Continue remdesivir (day 4 of 5) -Continue dexamethasone (day 4) -Starting plasma today for 3 days, today is day 2 of 3 -Enoxaparin -Repeat labs every other day -Isolation precautions -Symptomatic management of cough and shortness of breath -Supplement oxygen to keep sats greater than 90% Elevated troponin-mild elevation with only slight rise overnight is probably related to hypoxia and rapid atrial fibrillation in the setting of Covid pneumonia. He does have a mildly elevated CK level that is probably related to the mild troponin elevation rather than rhabdomyolysis. -Repeat level in the morning -Cardiac monitoring -Management as above Atrial fibrillation with rapid ventricular response-better rate control with metoprolol. -Continue metoprolol twice daily -Continue propafenone -Cardiac monitoring Essential hypertension-blood pressure acceptable. -Continue home medications Maintenance issues - - DVT prophylaxis -enoxaparin - GI prophylaxis -not indicated - Nutrition -regular - Gan catheter -not indicated Disposition -I would anticipate discharge home versus possibly the shelter after the hospital stay
[2020-03-08] MEDS: Dexamethasone 4 MG/ML SDV IVPUSH SCH (17:00)
[2020-03-08] MEDS: Simvastatin 20 MG Tab PO SCH (20:34)
[2020-03-08] MEDS: REMDESIVIR 100 MG in Sodium Chloride 0.9% 100 ML IV SCH (20:34)
[2020-03-09] MEDS: Albuterol 8 GM Inhaler INH SCH ×4 (08:31→21:50)
[2020-03-09] MEDS: Lactobacillus Rhamnosus GG (Probiotic) Cap PO SCH ×2 (08:32→21:48)
[2020-03-09] MEDS: Aspirin 81 MG Tab.EC PO SCH (08:32)
[2020-03-09] MEDS: Lisinopril 20 MG Tab PO SCH (08:33)
[2020-03-09] MEDS: Multivitamins with Iron/Calcium/Folic Acid/Minerals Tab PO SCH (08:33)
[2020-03-09] MEDS: Hydrochlorothiazide 25 MG Tab PO SCH (08:33)
[2020-03-09] MEDS: amLODIPine 5 MG Tab PO SCH (08:33)
[2020-03-09] MEDS: Ferrous Sulfate 325 MG Tab PO SCH (08:34)
[2020-03-09] MEDS: Enoxaparin 40 MG/0.4 ML Syringe SUBCUT SCH (08:34)
[2020-03-09] MEDS: Metoprolol Tartrate 25 MG Tab PO SCH ×2 (09:15→21:48)
[2020-03-09] MEDS: cefTRIAXone 1 GM in Sodium Chloride 0.9% 50 ML IV SCH (12:42)
--- NOTE | 2020-03-09 13:53 | PCM.PN ---
- General Info Date of Service: 03/09/20 Subjective Update: Mr. Infante has shown further improvement over the last 24 hours. He has been off of oxygen at times and reports less shortness of breath. Energy level and appetite also seem to be improving. Functional Status: Reports: Tolerating Diet, Ambulating, Urinating - Review of Systems General: Reports: Weakness, Fatigue. Denies: Fever, Chills Pulmonary: Reports: Shortness of Breath. Denies: Cough, Sputum, Hemoptysis, Wheezing Cardiovascular: Reports: Dyspnea on Exertion. Denies: Chest Pain, Palpitations, Orthopnea, PND, Edema, Lightheadedness Gastrointestinal: Reports: No Symptoms - Patient Data Vitals - Most Recent: Last Vital Signs Temp 94.4 F L 03/09/20 12:18 Pulse 73 03/09/20 12:18 Resp 18 03/09/20 12:18 BP 113/61 03/09/20 12:18 Pulse Ox 94 L 03/09/20 12:18 Weight - Most Recent: 224 lb 0.011 oz I&O - Last 24 Hours: Intake & Output 03/08/20 03/09/20 03/09/20 22:59 06:59 14:59 Intake Total 495 530 Output Total 700 500 150 Balance -205 -500 380 Lab Results Last 24 Hours: Laboratory Results - last 24 hr 03/09/20 03/09/20 03/09/20 Range/Units 06:13 06:13 06:13 WBC 7.7 (4.5-11.0) K/uL RBC 4.17 L (4.30-5.90) M/uL Hgb 11.8 L (12.0-15.0) g/dL Hct 37.5 L (40.0-54.0) % MCV 90 (80-98) fL MCH 28 (27-31) pg MCHC 32 (32-36) % Plt Count 197 (150-400) K/uL Neut % (Auto) 87 H (36-66) % Lymph % (Auto) 6 L (24-44) % [place] % (Auto) 7 H (2-6) % Eos % (Auto) 0 L (2-4) % Baso % (Auto) 0 (0-1) % D-Dimer, Quantitative 1932.86 H (0.0-500.0) ng/mL Sodium 141 (140-148) mmol/L Potassium 3.5 L (3.6-5.2) mmol/L Chloride 104 (100-108) mmol/L Carbon Dioxide 29 (21-32) mmol/L Anion Gap 11.5 (5.0-14.0) mmol/L BUN 26 H (7-18) mg/dL Creatinine 0.9 (0.8-1.3) mg/dL Est Cr Clr Drug Dosing 56.15 mL/min Estimated GFR (MDRD) > 60 (>60) Glucose 138 H (74-106) mg/dL Calcium 9.1 (8.5-10.1) mg/dL Total Bilirubin 0.5 (0.2-1.0) mg/dL AST 94 H (15-37) U/L ALT 83 H (12-78) U/L Alkaline Phosphatase 47 (46-116) U/L Creatine Kinase 465 H (39-308) U/L Troponin I 0.105 H* (0.000-0.056) ng/mL C-Reactive Protein (0.0-0.3) mg/dL Total Protein 5.7 L (6.4-8.2) g/dL Albumin 2.4 L (3.4-5.0) g/dL Globulin 3.3 (2.3-3.5) g/dL Albumin/Globulin Ratio 0.7 L (1.2-2.2) 03/09/20 Range/Units 06:13 WBC (4.5-11.0) K/uL RBC (4.30-5.90) M/uL Hgb (12.0-15.0) g/dL Hct (40.0-54.0) % MCV (80-98) fL MCH (27-31) pg MCHC (32-36) % Plt Count (150-400) K/uL Neut % (Auto) (36-66) % Lymph % (Auto) (24-44) % [place] % (Auto) (2-6) % Eos % (Auto) (2-4) % Baso % (Auto) (0-1) % D-Dimer, Quantitative (0.0-500.0) ng/mL Sodium (140-148) mmol/L Potassium (3.6-5.2) mmol/L Chloride (100-108) mmol/L Carbon Dioxide (21-32) mmol/L Anion Gap (5.0-14.0) mmol/L BUN (7-18) mg/dL Creatinine (0.8-1.3) mg/dL Est Cr Clr Drug Dosing mL/min Estimated GFR (MDRD) (>60) Glucose (74-106) mg/dL Calcium (8.5-10.1) mg/dL Total Bilirubin (0.2-1.0) mg/dL AST (15-37) U/L ALT (12-78) U/L Alkaline Phosphatase (46-116) U/L Creatine Kinase (39-308) U/L Troponin I (0.000-0.056) ng/mL C-Reactive Protein 2.74 H (0.0-0.3) mg/dL Total Protein (6.4-8.2) g/dL Albumin (3.4-5.0) g/dL Globulin (2.3-3.5) g/dL Albumin/Globulin Ratio (1.2-2.2) Brock Results Last 24 Hours: Microbiology 03/05/20 20:53 Aerobic Blood Culture - Preliminary Blood - Venous - Iv Start NO GROWTH AFTER 3 DAYS Anaerobic Blood Culture - Preliminary NO GROWTH AFTER 3 DAYS 03/05/20 20:45 Aerobic Blood Culture - Preliminary Blood - Arm, Right NO GROWTH AFTER 3 DAYS Anaerobic Blood Culture - Preliminary NO GROWTH AFTER 3 DAYS Med Orders - Current: Current Medications Acetaminophen (Tylenol) 650 mg PO Q4H PRN PRN Reason: Pain (Mild 1-3)/fever Last Admin: 03/07/20 16:01 Dose: 650 mg Documented by: Albuterol (Ventolin Hfa) 0 gm INH QIDRT [facility] Last Admin: 03/09/20 12:16 Dose: 2 puff Documented by: Albuterol (Ventolin Hfa) 0 gm INH Q4H PRN PRN Reason: Dyspnea Last Admin: 03/06/20 19:05 Dose: 2 puff Documented by: Amlodipine Besylate (Norvasc) 5 mg PO DAILY [facility] Last Admin: 03/09/20 08:33 Dose: 5 mg Documented by: Artificial Tears (Genteal Mild To Moderate Ophth Soln) 1 ml EYEBOTH Q1H PRN PRN Reason: Dryness Aspirin (Halfprin) 81 mg PO DAILY [facility] Last Admin: 03/09/20 08:32 Dose: 81 mg Documented by: Benzonatate (Tessalon Perles) 100 mg PO TID PRN PRN Reason: Cough Dexamethasone (Decadron) 6 mg IVPUSH Q24H [facility] Stop: 03/14/20 18:01 Last Admin: 03/08/20 17:00 Dose: 6 mg Documented by: Enoxaparin Sodium (Lovenox) 40 mg SUBCUT DAILY [facility] Last Admin: 03/09/20 08:34 Dose: 40 mg Documented by: Ferrous Sulfate (Ferrous Sulfate) 325 mg PO DAILY [facility] Last Admin: 03/09/20 08:34 Dose: 325 mg Documented by: Guaifenesin/Dextromethorphan (Robitussin Dm) 10 ml PO Q4H PRN PRN Reason: Cough Last Admin: 03/06/20 19:05 Dose: 10 ml Documented by: Hydrochlorothiazide (Hydrochlorothiazide) 25 mg PO DAILY [facility] Last Admin: 03/09/20 08:33 Dose: 25 mg Documented by: Remdesivir 100 mg/ Sodium (Chloride) 100 mls @ 100 mls/hr IV Q24H [facility] Stop: 03/09/20 21:59 Last Admin: 03/08/20 20:34 Dose: 100 mls/hr Documented by: Ceftriaxone Sodium 1 gm/ (Sodium Chloride) 50 mls @ 100 mls/hr IV Q24H [facility] Last Admin: 03/09/20 12:42 Dose: 100 mls/hr Documented by: Lactobacillus Rhamnosus (Culturelle) 1 cap PO BID [facility] Last Admin: 03/09/20 08:32 Dose: 1 cap Documented by: Lisinopril (Prinivil) 20 mg PO DAILY [facility] Last Admin: 03/09/20 08:33 Dose: 20 mg Documented by: Metoprolol Tartrate (Lopressor) 25 mg PO Q12H [facility] Last Admin: 03/09/20 09:15 Dose: 25 mg Documented by: Multivitamins/Minerals (Thera M Plus) 1 tab PO DAILY [facility] Last Admin: 03/09/20 08:33 Dose: 1 tab Documented by: Propafenone HCl (Rythmol) 225 mg PO DAILY [facility] Last Admin: 03/09/20 08:32 Dose: 225 mg Documented by: Simvastatin (Zocor) 20 mg PO BEDTIME [facility] Last Admin: 03/08/20 20:34 Dose: 20 mg Documented by: Sodium Chloride (Saline Flush) 10 ml FLUSH ASDIRECTED PRN PRN Reason: Keep Vein Open Discontinued Medications Acetaminophen (Tylenol) 650 mg PO Q4H PRN PRN Reason: Fever Greater Than 101 Last Admin: 03/05/20 21:59 Dose: 650 mg Documented by: Dexamethasone (Decadron) 6 mg IVPUSH DAILY [facility] Stop: 03/14/20 09:01 Last Admin: 03/05/20 22:13 Dose: 6 mg Documented by: Remdesivir 200 mg/ Sodium (Chloride) 250 mls @ 250 mls/hr IV ONETIME ONE Stop: 03/05/20 21:58 Last Admin: 03/05/20 22:17 Dose: 250 mls/hr Documented by: Metoprolol Tartrate (Lopressor) 5 mg IVPUSH ONETIME ONE Stop: 03/05/20 21:11 Last Admin: 03/05/20 21:28 Dose: 5 mg Documented by: Potassium Chloride (Klor-Con M20) 40 meq PO ONETIME ONE Stop: 03/06/20 09:16 Last Admin: 03/06/20 09:27 Dose: 40 meq Documented by: Sodium Chloride (Saline Flush) 10 ml FLUSH ASDIRECTED PRN PRN Reason: Keep Vein Open Last Admin: 03/05/20 21:27 Dose: 10 ml Documented by: - Exam Quality Assessment: Supplemental Oxygen, DVT Prophylaxis General: Alert, Oriented, Mild Distress Lungs: Clear to Auscultation, Normal Respiratory Effort, Decreased Breath Sounds Cardiovascular: Regular Rate, Regular Rhythm, Murmurs GI/Abdominal Exam: Soft, Non-Tender, No Organomegaly, No Distention Extremities: Non-Tender, No Pedal Edema Sepsis Event Note - Evaluation Sepsis Screening Result: No Definite Risk - Focused Exam Vital Signs: Vital Signs Temp Pulse Pulse Resp BP BP Pulse Ox 03/09/20 12:18 94.4 F L 73 18 113/61 94 L 03/09/20 09:15 66 143/80 H 03/09/20 08:33 143/80 H 03/09/20 08:32 66 03/09/20 07:14 93 L 03/09/20 07:00 94.6 F L 18 143/80 H 94 L 03/09/20 03:00 96.4 F L 60 16 92 L - Problem List Review Problem List Initiated/Reviewed/Updated: Yes - My Orders Last 24 Hours: My Active Orders 03/08/20 13:00 cefTRIAXone [Rocephin] 1 gm Sodium Chloride 0.9% [Normal Saline] 50 ml IV Q24H 03/08/20 18:20 CULTURE URINE [RM] Stat 03/10/20 05:00 BASIC METABOLIC PANEL,BMP [CHEM] Timed - Plan Plan:: ASSESSMENT AND PLAN - COVID-19 pneumonia with acute respiratory failure with hypoxia-manifestations including myalgias, arthralgias, weakness, hypoxia and rapid atrial fibrillation. Slow improvement in symptoms over the past few days -Continue remdesivir (day 5 of 5) -Continue dexamethasone (day 5) -plasma for 3 days, today is day 3 of 3 -Enoxaparin -Repeat labs every other day -Isolation precautions -Symptomatic management of cough and shortness of breath -Supplement oxygen to keep sats greater than 90% Elevated troponin-mild elevation with only slight rise overnight is probably related to hypoxia and rapid atrial fibrillation in the setting of Covid pneumonia. He does have a mildly elevated CK level that is probably related to the mild troponin elevation rather than rhabdomyolysis. Troponin levels slowly returning to baseline Atrial fibrillation with rapid ventricular response-better rate control with metoprolol. -Continue metoprolol twice daily -Continue propafenone -Cardiac monitoring Essential hypertension-blood pressure acceptable. -Continue home medications Maintenance issues - - DVT prophylaxis -enoxaparin - GI prophylaxis -not indicated - Nutrition -regular - Gan catheter -not indicated Disposition -I would anticipate discharge home versus possibly the [facility] after the hospital stay
[2020-03-09] MEDS: Dexamethasone 4 MG/ML SDV IVPUSH SCH (17:53)
[2020-03-09] MEDS: REMDESIVIR 100 MG in Sodium Chloride 0.9% 100 ML IV SCH (20:25)
[2020-03-09] MEDS: Simvastatin 20 MG Tab PO SCH (21:48)
[2020-03-10] MEDS ORDERED: Potassium Chloride 20 MEQ Tab.ER PO ONE (08:30)
[2020-03-10] MEDS: Albuterol 8 GM Inhaler INH SCH ×3 (08:33→14:23)
[2020-03-10] MEDS: Lactobacillus Rhamnosus GG (Probiotic) Cap PO SCH (09:27)
[2020-03-10] MEDS: Hydrochlorothiazide 25 MG Tab PO SCH (09:27)
[2020-03-10] MEDS: Enoxaparin 40 MG/0.4 ML Syringe SUBCUT SCH (09:28)
[2020-03-10] MEDS: Ferrous Sulfate 325 MG Tab PO SCH (09:28)
[2020-03-10] MEDS: Multivitamins with Iron/Calcium/Folic Acid/Minerals Tab PO SCH (09:28)
[2020-03-10] MEDS: Lisinopril 20 MG Tab PO SCH (09:28)
[2020-03-10] MEDS: amLODIPine 5 MG Tab PO SCH (09:28)
[2020-03-10] MEDS: Metoprolol Tartrate 25 MG Tab PO SCH (09:28)
[2020-03-10] MEDS: Aspirin 81 MG Tab.EC PO SCH (09:28)
--- NOTE | 2020-03-10 09:47 | PCM.DCSUM1 ---
Discharge Summary - Hospital Course Brief History: Mr. Infante is an 89-year-old gentleman who was admitted through the emergency department with increased weakness, shortness of breath, hypoxia, confusion, secondary to COVID-19 infection. - Discharge Data Discharge Date: 03/10/20 Discharge Disposition: Home, Self-Care 01 Condition: Fair - Referral to Home Health Primary Care Physician: Jake Reyes NP - Discharge Diagnosis/Problem(s) (1) Hypoxia SNOMED Code(s): 970102034 ICD Code: R09.02 - HYPOXEMIA Status: Acute Current Visit: Yes (2) COVID-19 SNOMED Code(s): 980699921 ICD Code: U07.1 - COVID-19 Status: Acute Current Visit: Yes (3) Atrial fibrillation with RVR SNOMED Code(s): 189301268531397 ICD Code: I48.91 - UNSPECIFIED ATRIAL FIBRILLATION Status: Acute Current Visit: Yes - Patient Summary/Data Consults: Consultations 03/08/20 07:00 PT Evaluation and Treatment [CONS] Routine Please Evaluate and Treat. PT Reason for Consult: Strengthening This query below is only for informational purposes and is not editable. Admission Diagnosis/Problem: Atrial fibrillation 03/09/20 16:19 Consult to Speech Language Pathology [[employer] Evaluation and Treatment] [CONS] Routine Please Evaluate and Treat [employer] Reason for Consult: bedside swallow eval, observed difficulty swallowing on admit Discharge Disposition: Home This query below is only for informational purposes and is not editable. Admission Diagnosis/Problem: Atrial fibrillation Hospital Course: Mr. Infante is an 89-year-old gentleman who was admitted through the emergency department with weakness, shortness of breath, hypoxia, increased confusion, and rapid heart rate related to COVID-19 infection and atrial fibrillation. Prior to admission he had history of increased confusion and progressive weakness. Because of confusion he was unable to provide a meaningful history concerning recent symptoms or events at the time of admission. On evaluation in the emergency department was found to be hypoxic, this corrected with supplemental oxygen. He was noted to be in atrial fibrillation with rapid ventricular response. COVID-19 testing was obtained and found to be positive. IV fluids were limited and he was admitted to the hospital for management of COVID-19 infection with hypoxia as well as atrial fibrillation with rapid ventricular response. He initially was admitted to the ICU and started on continuous infusion of IV diltiazem which did result in good control of his heart rate. He was also started on specific treatment for COVID-19 with remdesivir, dexamethasone, and convalescent plasma. Also at the time of admission he was noted to have an elevated troponin level, but no significant ST segment changes noted on EKG. This was felt to be likely demand ischemia in the setting of COVID-19 infection with hypoxia as well as his atrial fibrillation with rapid ventricular response. Troponin levels were monitored and did gradually decrease and normalize during hospitalization. He was converted from IV diltiazem to oral metoprolol and did convert to sinus rhythm and remained in sinus rhythm through the rest of his hospitalization. Respiratory status slowly improved and by the time of discharge he was off of supplemental oxygen. He had completed a course of remdesivir and convalescent plasma prior to discharge. Dexamethasone will be discontinued at the time of discharge. He was treated with enoxaparin 40 mg subcu daily throughout the hospitalization and this will be continued for an additional 7 days after discharge. Activity will be as tolerated and he will resume his usual diet. Follow-up appointment will be scheduled with his primary care provider within 1 week. - Patient Instructions Diet: Usual Diet as Tolerated Activity: As Tolerated Other/Special Instructions: Please schedule follow-up appointment with primary care provider within 1 week. - Discharge Plan *PRESCRIPTION DRUG MONITORING PROGRAM REVIEWED*: Not Applicable *COPY OF PRESCRIPTION DRUG MONITORING REPORT IN PATIENT TYLER: Not Applicable Prescriptions/Med Rec: Enoxaparin [Lovenox] 40 mg SUBCUT DAILY #7 syringe Home Medications: Home Meds Aspirin [Adult Low Dose Aspirin EC] 81 mg PO DAILY 02/17/13 [History] Lisinopril/Hydrochlorothiazide [Lisinopril-Hctz 20-25 mg Tab] 1 tab PO DAILY 02/17/13 [History] Propafenone [Rythmol] 225 mg PO DAILY 02/17/13 [History] Simvastatin [Zocor] 20 mg PO DAILY 02/17/13 [History] amLODIPine [Norvasc] 5 tab PO DAILY 02/17/13 [History] Ferrous Sulfate [Feosol] 325 mg PO DAILY 03/05/20 [History] Multivit-Min/FA/Lycopen/Lutein [Centrum Silver Men Tablet] 1 each PO DAILY 03/05/20 [History] Enoxaparin [Lovenox] 40 mg SUBCUT DAILY #7 syringe 03/10/20 [Rx] - Discharge Summary/Plan Comment DC Time >30 min.: No - Patient Data Vitals - Most Recent: Last Vital Signs Temp 97.2 F 03/10/20 08:13 Pulse 67 03/10/20 09:28 Resp 16 03/10/20 08:13 BP 149/80 H 03/10/20 09:28 Pulse Ox 92 L 03/10/20 08:13 Weight - Most Recent: 224 lb 0.011 oz I&O - Last 24 hours: Intake & Output 03/09/20 03/10/20 03/10/20 22:59 06:59 14:59 Intake Total 200 Output Total 650 450 150 Balance -450 -450 -150 Lab Results - Last 24 hrs: Laboratory Results - last 24 hr 03/10/20 Range/Units 06:17 Sodium 140 (140-148) mmol/L Potassium 3.5 L (3.6-5.2) mmol/L Chloride 102 (100-108) mmol/L Carbon Dioxide 30 (21-32) mmol/L Anion Gap 11.5 (5.0-14.0) mmol/L BUN 26 H (7-18) mg/dL Creatinine 0.9 (0.8-1.3) mg/dL Est Cr Clr Drug Dosing 56.15 mL/min Estimated GFR (MDRD) > 60 (>60) Glucose 131 H (74-106) mg/dL Calcium 9.3 (8.5-10.1) mg/dL PETE Results - Last 24 hrs: Microbiology 03/08/20 18:20 Urine Culture - Preliminary Urine, Clean Catch MIXED CAROLEE DAY 1 03/05/20 20:45 Aerobic Blood Culture - Preliminary Blood - Arm, Right NO GROWTH AFTER 4 DAYS Anaerobic Blood Culture - Preliminary NO GROWTH AFTER 4 DAYS 03/05/20 20:53 Aerobic Blood Culture - Preliminary Blood - Venous - Iv Start NO GROWTH AFTER 4 DAYS Anaerobic Blood Culture - Preliminary NO GROWTH AFTER 4 DAYS Med Orders - Current: Current Medications Acetaminophen (Tylenol) 650 mg PO Q4H PRN PRN Reason: Pain (Mild 1-3)/fever Last Admin: 03/07/20 16:01 Dose: 650 mg Documented by: Albuterol (Ventolin Hfa) 0 gm INH QIDRT [facility] Last Admin: 03/10/20 08:33 Dose: 2 puff Documented by: Albuterol (Ventolin Hfa) 0 gm INH Q4H PRN PRN Reason: Dyspnea Last Admin: 03/06/20 19:05 Dose: 2 puff Documented by: Amlodipine Besylate (Norvasc) 5 mg PO DAILY [facility] Last Admin: 03/10/20 09:28 Dose: 5 mg Documented by: Artificial Tears (Genteal Mild To Moderate Ophth Soln) 1 ml EYEBOTH Q1H PRN PRN Reason: Dryness Aspirin (Halfprin) 81 mg PO DAILY [facility] Last Admin: 03/10/20 09:28 Dose: 81 mg Documented by: Benzonatate (Tessalon Perles) 100 mg PO TID PRN PRN Reason: Cough Dexamethasone (Decadron) 6 mg IVPUSH Q24H [facility] Stop: 03/14/20 18:01 Last Admin: 03/09/20 17:53 Dose: 6 mg Documented by: Enoxaparin Sodium (Lovenox) 40 mg SUBCUT DAILY [facility] Last Admin: 03/10/20 09:28 Dose: 40 mg Documented by: Ferrous Sulfate (Ferrous Sulfate) 325 mg PO DAILY [facility] Last Admin: 03/10/20 09:28 Dose: 325 mg Documented by: Guaifenesin/Dextromethorphan (Robitussin Dm) 10 ml PO Q4H PRN PRN Reason: Cough Last Admin: 03/06/20 19:05 Dose: 10 ml Documented by: Hydrochlorothiazide (Hydrochlorothiazide) 25 mg PO DAILY [facility] Last Admin: 03/10/20 09:27 Dose: 25 mg Documented by: Ceftriaxone Sodium 1 gm/ (Sodium Chloride) 50 mls @ 100 mls/hr IV Q24H [facility] Last Admin: 03/09/20 12:42 Dose: 100 mls/hr Documented by: Lactobacillus Rhamnosus (Culturelle) 1 cap PO BID [facility] Last Admin: 03/10/20 09:27 Dose: 1 cap Documented by: Lisinopril (Prinivil) 20 mg PO DAILY [facility] Last Admin: 03/10/20 09:28 Dose: 20 mg Documented by: Metoprolol Tartrate (Lopressor) 25 mg PO Q12H [facility] Last Admin: 03/10/20 09:28 Dose: 25 mg Documented by: Multivitamins/Minerals (Thera M Plus) 1 tab PO DAILY [facility] Last Admin: 03/10/20 09:28 Dose: 1 tab Documented by: Propafenone HCl (Rythmol) 225 mg PO DAILY [facility] Last Admin: 03/10/20 09:27 Dose: 225 mg Documented by: Simvastatin (Zocor) 20 mg PO BEDTIME [facility] Last Admin: 03/09/20 21:48 Dose: 20 mg Documented by: Sodium Chloride (Saline Flush) 10 ml FLUSH ASDIRECTED PRN PRN Reason: Keep Vein Open Discontinued Medications Acetaminophen (Tylenol) 650 mg PO Q4H PRN PRN Reason: Fever Greater Than 101 Last Admin: 03/05/20 21:59 Dose: 650 mg Documented by: Dexamethasone (Decadron) 6 mg IVPUSH DAILY [facility] Stop: 03/14/20 09:01 Last Admin: 03/05/20 22:13 Dose: 6 mg Documented by: Remdesivir 200 mg/ Sodium (Chloride) 250 mls @ 250 mls/hr IV ONETIME ONE Stop: 03/05/20 21:58 Last Admin: 03/05/20 22:17 Dose: 250 mls/hr Documented by: Remdesivir 100 mg/ Sodium (Chloride) 100 mls @ 100 mls/hr IV Q24H [facility] Stop: 03/09/20 21:59 Last Admin: 03/09/20 20:25 Dose: 100 mls/hr Documented by: Metoprolol Tartrate (Lopressor) 5 mg IVPUSH ONETIME ONE Stop: 03/05/20 21:11 Last Admin: 03/05/20 21:28 Dose: 5 mg Documented by: Potassium Chloride (Klor-Con M20) 40 meq PO ONETIME ONE Stop: 03/06/20 09:16 Last Admin: 03/06/20 09:27 Dose: 40 meq Documented by: Potassium Chloride (Klor-Con M20) 40 meq PO ONETIME ONE Stop: 03/10/20 08:31 Sodium Chloride (Saline Flush) 10 ml FLUSH ASDIRECTED PRN PRN Reason: Keep Vein Open Last Admin: 03/05/20 21:27 Dose: 10 ml Documented by: - Exam Quality Assessment: Reports: DVT Prophylaxis General: Reports: Alert, Oriented, Cooperative, No Acute Distress Lungs: Reports: Clear to Auscultation, Normal Respiratory Effort Cardiovascular: Reports: Regular Rate, Regular Rhythm, No Murmurs GI/Abdominal Exam: Soft, Non-Tender, No Organomegaly, No Distention Back Exam: Reports: Normal Inspection, Full Range of Motion Extremities: Non-Tender, No Pedal Edema
[2020-03-10] MEDS: cefTRIAXone 1 GM in Sodium Chloride 0.9% 50 ML IV SCH (13:15)
[2020-03-10 14:50] VITALS: BP 135/72; PULSE 63
== END 2020-03-10 16:00 | disposition home or self-care (01) | DRG 177 ==
LOC: JP.ED 20:30 → JP.ICU 23:01 → JP.2SS 03-06 11:45
PROVIDERS: ADMIT Family Medicine; ATTEND Hospitalist
PROC: 8E0ZXY6 Isolation (ICD-10-PCS; principal; 2020-03-05)
PROC: XW033E5 Introduction of Remdesivir Anti-infective into Peripheral Vein, Percutaneous Approach, New Technology Group 5 (ICD-10-PCS; 2020-03-05)
PROC: XW033F5 Introduction of Other New Technology Therapeutic Substance into Peripheral Vein, Percutaneous Approach, New Technology Group 5 (ICD-10-PCS; 2020-03-05)
PROC: XW13325 Transfusion of Convalescent Plasma (Nonautologous) into Peripheral Vein, Percutaneous Approach, New Technology Group 5 (ICD-10-PCS; 2020-03-05)
DX: U07.1 COVID-19 (principal); J12.89 Other viral pneumonia; H35.30 Unspecified macular degeneration; J96.01 Acute respiratory failure with hypoxia; I48.91 Unspecified atrial fibrillation; E78.00 Pure hypercholesterolemia, unspecified; I25.2 Old myocardial infarction; I35.0 Nonrheumatic aortic (valve) stenosis; G47.30 Sleep apnea, unspecified; I10 Essential (primary) hypertension; E66.9 Obesity, unspecified; Z87.891 Personal history of nicotine dependence; Z88.6 Allergy status to analgesic agent; Z91.030 Bee allergy status; Z79.82 Long term (current) use of aspirin; Z79.899 Other long term (current) drug therapy; E78.5 Hyperlipidemia, unspecified; I25.10 Atherosclerotic heart disease of native coronary artery without angina pectoris; D64.9 Anemia, unspecified; Z68.33 Body mass index [BMI] 33.0-33.9, adult
CPT/HCPCS: 36415; 71045 ×2; 73030; 80048; 80076; 82550; 82728; 83605; 83615; 84145; 84484; 85025; 85379; 85610; 86140; 87040 ×2; 93005 ×2; 96365; 96375; 99285 ×2; A9270; J1100; J3490; J7050; U0002; 36430; 80053; 81001; 85027; 86900; 86901; 87086; 92610-GN; 93010; 94640; 94762; 97110-GP; 97162-GP; 97530-GP; 99223-AI; 99231; 99232; 99238; J0696; J1650; P9017

== ENCOUNTER 2020-03-13 11:33 | Inpatient (IN) | payer MEDICARE, OTHER ==
--- NOTE | 2020-03-13 13:39 | EDM.PDOC ---
ED HPI GENERAL MEDICAL PROBLEM - General Stated Complaint: COVID POSITIVE, SYNCOPE Time Seen by Provider: 03/13/20 11:50 Source of Information: Reports: Patient, EMS History Limitations: Reports: Physical Impairment - History of Present Illness INITIAL COMMENTS - FREE TEXT/NARRATIVE: Patient presents by ambulance from home after apparently falling and being weak. Patient is a limited historian and much of history is provided by paramedics. He states that he was in bed, turned to get up out of bed and while sitting, slid off the bed and onto the floor. There was no loss of consciousness that he recalls. No new injuries although he fell onto his right side, causing increased pain to a previously painful shoulder. Eventually paramedics arrived and they lifted him from the floor onto their cart as he was too weak. He was noted to be in atrial fibrillation with a low rapid ventricular response of 110 or so. He had no other pain complaints and when asked stated that he was not sure why he was here. He thinks he feels fine. He recently was diagnosed with and hospitalized for COVID-19. Onset: Sudden Location: Reports: Upper Extremity, Right, Generalized Quality: Reports: Ache Severity: Moderate Improves with: Reports: None Worsens with: Reports: Movement Context: Reports: Other (Fall onto floor and recent hospitalization for COVID- 19.) - Related Data Allergies Allergy/AdvReac Type Severity Reaction Status Date / Time venom-honey bee Allergy Severe Anaphylactic Verified 03/13/20 11:59 [bee venom (honey bee)] Shock propoxyphene HCl AdvReac Nausea and Verified 03/13/20 11:59 [From Darvon] Vomiting Home Meds: Home Meds Aspirin [Adult Low Dose Aspirin EC] 81 mg PO DAILY 02/17/13 [History] Lisinopril/Hydrochlorothiazide [Lisinopril-Hctz 20-25 mg Tab] 1 tab PO DAILY 02/17/13 [History] Propafenone [Rythmol] 225 mg PO DAILY 02/17/13 [History] Simvastatin [Zocor] 20 mg PO DAILY 02/17/13 [History] amLODIPine [Norvasc] 5 tab PO DAILY 02/17/13 [History] Ferrous Sulfate [Feosol] 325 mg PO DAILY 03/05/20 [History] Multivit-Min/FA/Lycopen/Lutein [Centrum Silver Men Tablet] 1 each PO DAILY 03/05/20 [History] Enoxaparin [Lovenox] 40 mg SUBCUT DAILY #7 syringe 03/10/20 [Rx] Past Medical History HEENT History: Reports: Cataract, Macular Degeneration Cardiovascular History: Reports: Afib, CAD, High Cholesterol, Hypertension, [place], Other (See Below) Other Cardiovascular History: Aortic valve sclerosis Respiratory History: Reports: Sleep Apnea Other Respiratory History: c-pap Genitourinary History: Reports: Other (See Below) Other Genitourinary History: nocturia Musculoskeletal History: Reports: Other (See Below) Other Musculoskeletal History: carpal tunnel syndrome Endocrine/Metabolic History: Reports: Obesity/BMI 30+, Other (See Below) Other Endocrine/Metabolic History: impaired fasting glucose Hematologic History: Reports: Anemia Oncologic (Cancer) History: Reports: Other (See Below) 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 - Infectious Disease History Infectious Disease History: Reports: Chicken Pox, Measles, Mumps, Pertussis (Whooping Cough), Shingles - Past Surgical History HEENT Surgical History: Reports: Cataract Surgery, Oral Surgery, Other (See Below) Other HEENT Surgeries/Procedures: dentures GI Surgical History: Reports: Hernia Repair/Other Musculoskeletal Surgical History: Reports: Knee Replacement Other Musculoskeletal Surgeries/Procedures:: right and left Social & Family History - Tobacco Use Tobacco Use Status *Q: Never Tobacco User - Caffeine Use Caffeine Use: Reports: Coffee ED ROS GENERAL - Review of Systems Review Of Systems: See Below Constitutional: Reports: No Symptoms HEENT: Reports: No Symptoms Respiratory: Reports: Shortness of Breath, Cough Endocrine: Reports: Fatigue GI/Abdominal: Reports: No Symptoms : Denies: Dysuria Musculoskeletal: Reports: Shoulder Pain (Right shoulder pain.) ED EXAM, GENERAL - Physical Exam Exam: See Below Exam Limited By: Physical Impairment (Patient sleeps in between questions. His clothing is saturated with urine.) General Appearance: Lethargic, Mild Distress Throat/Mouth: Other (Somewhat dry oral mucosa.) Head: Normocephalic Neck: Supple Respiratory/Chest: Lungs Clear Cardiovascular: Irregularly Irregular GI/Abdominal: Soft, Non-Tender Extremities: Slow Capillary Refill #1 Interpretation EKG Date: 03/13/20 Rhythm: A-Fib Rate (Beats/Min): 93 [place]: Normal P-Wave: Absent QRS: Normal ST-T: Normal QT: Normal Course - Vital Signs Last Recorded V/S: Last Vital Signs Temp 37.3 C 03/13/20 12:07 Pulse 87 03/13/20 14:31 Resp 22 H 03/13/20 14:31 BP 99/57 L 03/13/20 14:31 Pulse Ox 95 03/13/20 14:31 - Orders/Labs/Meds Orders: Active Orders 24 hr Category Date Time Status EKG Documentation Completion [RC] ASDIRECTED Care 03/13/20 11:57 Active Shoulder Comp Rt [CR] Stat Exams 03/13/20 11:50 Taken EKG 12 Lead [EK] Routine Ther 03/13/20 11:57 Ordered Labs: Laboratory Tests 03/13/20 03/13/20 Range/Units 12:15 12:15 WBC 11.4 H (4.5-11.0) K/uL RBC 4.50 (4.30-5.90) M/uL Hgb 12.7 (12.0-15.0) g/dL Hct 40.3 (40.0-54.0) % MCV 90 (80-98) fL MCH 28 (27-31) pg MCHC 32 (32-36) % Plt Count 271 (150-400) K/uL Neut % (Auto) 90 H (36-66) % Lymph % (Auto) 3 L (24-44) % [place] % (Auto) 7 H (2-6) % Eos % (Auto) 0 L (2-4) % Baso % (Auto) 0 (0-1) % Sodium 135 L (140-148) mmol/L Potassium 3.3 L (3.6-5.2) mmol/L Chloride 98 L (100-108) mmol/L Carbon Dioxide 28 (21-32) mmol/L Anion Gap 12.3 (5.0-14.0) mmol/L BUN 18 (7-18) mg/dL Creatinine 1.1 (0.8-1.3) mg/dL Est Cr Clr Drug Dosing 41.16 mL/min Estimated GFR (MDRD) > 60 (>60) Glucose 108 H (74-106) mg/dL Calcium 8.9 (8.5-10.1) mg/dL Total Bilirubin 1.3 H D (0.2-1.0) mg/dL AST 50 H (15-37) U/L ALT 62 (12-78) U/L Alkaline Phosphatase 60 (46-116) U/L Creatine Kinase 196 (39-308) U/L Total Protein 6.0 L (6.4-8.2) g/dL Albumin 2.6 L (3.4-5.0) g/dL Globulin 3.4 (2.3-3.5) g/dL Albumin/Globulin Ratio 0.8 L (1.2-2.2) - Re-Assessments/Exams Free Text/Narrative Re-Assessment/Exam: 03/13/20 15:09 I provided him with a cup of water and a straw which he slipped down quickly. X-ray of the shoulder was obtained showing chronic changes. His called later to provide additional history. After he slid from the bed to the floor, he was too weak to get up by himself or for his to get him on his feet, prompting the call to 911. She states that he will always tell you that he feels fine and nothing is wrong when in reality he is weak. Attempts were made to ambulate the patient in the room but he is very lethargic and too weak to stand even at the bedside. Urine saturated clothing was removed. A Gan catheter was placed to obtain urine for analysis and will be left in place temporarily to get an idea of urinary output given his incontinence. He will need admission because of weakness. Case was discussed with Dr. Fernandez. 03/13/20 15:11 Departure - Departure Time of Disposition: 15:13 Disposition: Admitted As Inpatient 68 Clinical Impression: Weakness generalized, COVID-19, Atrial fibrillation with RVR - Discharge Information Referrals: PCP,None [Primary Care Provider] - Sepsis Event Note (ED) - Evaluation Sepsis Screening Result: No Definite Risk - Focused Exam Vital Signs: Vital Signs Temp Pulse Resp BP Pulse Ox 03/13/20 14:31 87 22 H 99/57 L 95 03/13/20 12:40 92 21 H 112/67 94 L 03/13/20 12:07 37.3 C 93 14 118/71 95 - My Orders Last 24 Hours: My Active Orders 03/13/20 11:50 Shoulder Comp Rt [CR] Stat 03/13/20 11:57 EKG Documentation Completion [RC] ASDIRECTED EKG 12 Lead [EK] Routine - Assessment/Plan Last 24 Hours: My Active Orders 03/13/20 11:50 Shoulder Comp Rt [CR] Stat 03/13/20 11:57 EKG Documentation Completion [RC] ASDIRECTED EKG 12 Lead [EK] Routine
--- NOTE | 2020-03-13 15:23 | PCM.HP.2 ---
H&P History of Present Illness - General Date of Service: 03/13/20 Admit Problem/Dx: Admission Diagnosis/Problem Admission Diagnosis/Problem Weakness Source of Information: Patient, Family, Old Records, Provider, RN Notes Reviewed History Limitations: Reports: Altered Mental Status (Confusion) - History of Present Illness Initial Comments - Free Text/Narative: Mr. Infante is an 89-year-old gentleman who was admitted through the emergency department observation status because of severe weakness secondary to recent COVID-19 infection. He was hospitalized last week at this facility with active Covid infection and hypoxia. He was treated with convalescent plasma, remdesi vir and dexamethasone. He improved during hospitalization and was ambulating in the hallways prior to discharge. Hypoxia had resolved by the time of discharge and he did not require home oxygen. He was eating fairly well and confusion had improved. He was discharged home 3 days ago. His states that oral intake has been very poor and he has been inactive. Today he fell attempting to get out of bed and was unable to get up and off of the floor. He was brought into the emergency department, there is no evidence of active infection, hypoxia, or significant metabolic abnormality to explain his severe weakness. - Related Data Allergies/Adverse Reactions: Allergies Allergy/AdvReac Type Severity Reaction Status Date / Time venom-honey bee Allergy Severe Anaphylactic Verified 03/13/20 11:59 [bee venom (honey bee)] Shock propoxyphene HCl AdvReac Nausea and Verified 03/13/20 11:59 [From Darvon] Vomiting Home Medications: Home Meds Aspirin [Adult Low Dose Aspirin EC] 81 mg PO DAILY 02/17/13 [History] Lisinopril/Hydrochlorothiazide [Lisinopril-Hctz 20-25 mg Tab] 1 tab PO DAILY 02/17/13 [History] Propafenone [Rythmol] 225 mg PO DAILY 02/17/13 [History] Simvastatin [Zocor] 20 mg PO DAILY 02/17/13 [History] amLODIPine [Norvasc] 5 tab PO DAILY 02/17/13 [History] Ferrous Sulfate [Feosol] 325 mg PO DAILY 03/05/20 [History] Multivit-Min/FA/Lycopen/Lutein [Centrum Silver Men Tablet] 1 each PO DAILY 03/05/20 [History] Enoxaparin [Lovenox] 40 mg SUBCUT DAILY #7 syringe 03/10/20 [Rx] Past Medical History HEENT History: Reports: Cataract, Macular Degeneration Cardiovascular History: Reports: Afib, CAD, High Cholesterol, Hypertension, [place], Other (See Below) Other Cardiovascular History: Aortic valve sclerosis Respiratory History: Reports: Sleep Apnea Other Respiratory History: c-pap Genitourinary History: Reports: Other (See Below) Other Genitourinary History: nocturia Musculoskeletal History: Reports: Other (See Below) Other Musculoskeletal History: carpal tunnel syndrome Endocrine/Metabolic History: Reports: Obesity/BMI 30+, Other (See Below) Other Endocrine/Metabolic History: impaired fasting glucose Hematologic History: Reports: Anemia Oncologic (Cancer) History: Reports: Other (See Below) 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 - Infectious Disease History Infectious Disease History: Reports: Chicken Pox, Measles, Mumps, Pertussis (Whooping Cough), Shingles - Past Surgical History HEENT Surgical History: Reports: Cataract Surgery, Oral Surgery, Other (See Below) Other HEENT Surgeries/Procedures: dentures GI Surgical History: Reports: Hernia Repair/Other Musculoskeletal Surgical History: Reports: Knee Replacement Other Musculoskeletal Surgeries/Procedures:: right and left Social & Family History - Tobacco Use Tobacco Use Status *Q: Never Tobacco User - Caffeine Use Caffeine Use: Reports: Coffee H&P Review of Systems - Review of Systems: Review Of Systems: See Below General: Reports: ROS unobtainable (Confusion) Exam - Exam Exam: See Below - Vital Signs Vital Signs: Last Vital Signs Temp 99.1 F 03/13/20 12:07 Pulse 81 03/13/20 15:04 Resp 22 H 03/13/20 14:31 BP 108/54 L 03/13/20 15:04 Pulse Ox 95 03/13/20 14:31 Weight: 170 lb - Exam Quality Assessment: DVT Prophylaxis General: Alert, Cooperative, Mild Distress HEENT: Conjunctiva Clear, Hearing Intact, Normal Nasal Septum, Posterior Pharynx Clear, Pupils Equal. No: Mucosa Moist & [place] Neck: Supple, Trachea Midline, +2 Carotid Pulse wo Bruit Lungs: Clear to Auscultation, Normal Respiratory Effort, Decreased Breath Sounds. No: Crackles, Rales, Rhonchi, Wheezing Cardiovascular: Regular Rate, Normal S1, Normal S2, Irregular Rhythm. No: Systolic Murmur, Diastolic Murmur GI/Abdominal Exam: Soft, Non-Tender, No Organomegaly, No Distention Back Exam: Normal Inspection, Full Range of Motion Extremities: Non-Tender, No Pedal Edema Skin: Warm, Dry, Intact Neurological: Cranial Nerves Intact, Strength Equal Bilateral, Normal Speech, Normal Tone, Sensation Intact. No: Focal Deficit Neuro Extensive - Mental Status: Alert, Normal Mood/Affect, Disorientation to Time, Memory Loss-Remote Events, Memory Loss-Recent Events. No: Oriented x3, Memory Intact - Patient Data Lab Results Last 24 hrs: Laboratory Results - last 24 hr 03/13/20 03/13/20 Range/Units 12:15 12:15 WBC 11.4 H (4.5-11.0) K/uL RBC 4.50 (4.30-5.90) M/uL Hgb 12.7 (12.0-15.0) g/dL Hct 40.3 (40.0-54.0) % MCV 90 (80-98) fL MCH 28 (27-31) pg MCHC 32 (32-36) % Plt Count 271 (150-400) K/uL Neut % (Auto) 90 H (36-66) % Lymph % (Auto) 3 L (24-44) % [place] % (Auto) 7 H (2-6) % Eos % (Auto) 0 L (2-4) % Baso % (Auto) 0 (0-1) % Sodium 135 L (140-148) mmol/L Potassium 3.3 L (3.6-5.2) mmol/L Chloride 98 L (100-108) mmol/L Carbon Dioxide 28 (21-32) mmol/L Anion Gap 12.3 (5.0-14.0) mmol/L BUN 18 (7-18) mg/dL Creatinine 1.1 (0.8-1.3) mg/dL Est Cr Clr Drug Dosing 41.16 mL/min Estimated GFR (MDRD) > 60 (>60) Glucose 108 H (74-106) mg/dL Calcium 8.9 (8.5-10.1) mg/dL Total Bilirubin 1.3 H D (0.2-1.0) mg/dL AST 50 H (15-37) U/L ALT 62 (12-78) U/L Alkaline Phosphatase 60 (46-116) U/L Creatine Kinase 196 (39-308) U/L Total Protein 6.0 L (6.4-8.2) g/dL Albumin 2.6 L (3.4-5.0) g/dL Globulin 3.4 (2.3-3.5) g/dL Albumin/Globulin Ratio 0.8 L (1.2-2.2) Result Diagrams: 03/13/20 12:15 03/13/20 12:15 Sepsis Event Note - Evaluation Sepsis Screening Result: No Definite Risk - Focused Exam Vital Signs: Vital Signs Temp Pulse Resp BP Pulse Ox 03/13/20 15:04 81 108/54 L 03/13/20 14:31 87 22 H 99/57 L 95 03/13/20 13:30 82 21 H 104/64 96 03/13/20 12:40 92 21 H 112/67 94 L 03/13/20 12:07 99.1 F 93 14 118/71 95 *Q Meaningful Use (ADM) - VTE Risk Assess *Q Each Risk Factor Represents 1 Point: Obesity ( BMI > 25 kg/m2), Serious lung disease including pneumonia Total Score 1 Point Risk Factors: 2 Each Risk Factor Represents 2 Points: None Total Score 2 Point Risk Factors: 0 Each Risk Factor Represents 3 Points: Age 75 Years or Greater Total Score 3 Point Risk Factors: 3 Each Risk Factor Represents 5 Points: None Total Score 5 Point Risk Factors: 0 Venous Thromboembolism Risk Factor Score *Q: 5 Problem List Initiated/Reviewed/Updated: Yes Orders Last 24hrs: Active Orders 24 hr Category Date Time Status Patient Status Manage Transfer [TRANSFER] Routine ADT 03/13/20 15:17 Ordered EKG Documentation Completion [RC] ASDIRECTED Care 03/13/20 11:57 Active Gan Catheter Insertion [Insert Urinary Catheter] [OM. Care 03/13/20 15:00 Ordered PC] Q24H Urinary Catheter Assessment [RC] ASDIRECTED Care 03/13/20 14:54 Active Shoulder Comp Rt [CR] Stat Exams 03/13/20 11:50 Taken URINALYSIS W/MICROSCOPIC [UA W/MICROSCOPIC] [URIN] Stat Lab 03/13/20 15:17 Received Resuscitation Status Routine Resus Stat 03/13/20 15:19 Ordered EKG 12 Lead [EK] Routine Ther 03/13/20 11:57 Ordered Assessment/Plan Comment:: ASSESSMENT AND PLAN COVID-19-no evidence of active infection at the present time. He has completed treatment with remdesivir and convalescent plasma. Received 6 days of dexamethasone prior to discharge. Currently experiencing no hypoxia or other symptoms which could be attributed to active infection. -Supportive care GENERALIZED WEAKNESS-likely secondary to recent Covid infection. No other acute infections or significant metabolic abnormalities noted on evaluation. -Physical therapy consult -group home placement for restorative physical therapy and Occupational Therapy ATRIAL FIBRILLATION-rate adequately controlled at the present time. He had converted back to sinus rhythm during his last hospital stay. He was intolerant of higher doses of beta-donya during previous hospitalization. -Metoprolol 12.5 mg p.o. twice daily -Discontinue Norvasc -Continue propafenone -Start apixaban for anticoagulation ESSENTIAL HYPERTENSION-blood pressure acceptable. MAINTENANCE ISSUES - DVT prophylaxis -enoxaparin - GI prophylaxis -not indicated - Nutrition -regular - Gan catheter -not indicated DISPOSITION -I would [facility] physical therapy and Occupational Therapy - Mortality Measure Prognosis:: Good
[2020-03-13] MEDS ORDERED: Sodium Chloride 0.9% 10 ML Syringe FLUSH PRN (16:26)
[2020-03-13] MEDS ORDERED: Polyethylene Glycol 3350 Powder 17 GM Packet PO PRN (16:26)
[2020-03-13] MEDS: Acetaminophen 325 MG Tab PO PRN (16:40)
[2020-03-13] MEDS: Sodium Chloride 0.9% 1,000 ML IV SCH (16:41)
[2020-03-13] MEDS ORDERED: Potassium Chloride 20 MEQ Tab.ER PO ONE (16:55)
[2020-03-13] MEDS: Lactobacillus Rhamnosus GG (Probiotic) Cap PO SCH ×2 (17:44→20:33)
[2020-03-13] MEDS: Metoprolol Tartrate 25 MG Tab PO SCH (17:44)
[2020-03-13] MEDS: Piperacillin/Tazobactam 3.375 GM in Sodium Chloride 0.9% 50 ML IV SCH (17:47)
--- NOTE | 2020-03-13 18:01 | CRLCR ---
INDICATION: Fever. Recent COVID infection. TECHNIQUE: AP portable chest. COMPARISON: March 05, 2020. FINDINGS: Shallow inspiration. Overall heart size is within normal limits. No evidence for congestive heart failure. Previously identified patchy infiltrates within the left mid to lower lung have largely resolved. Slight fibrosis left lung base. Advanced arthritis of the shoulders. IMPRESSION: No plain radiographic evidence for active COVID-19 infection. Dictated by Yovani Fay MD @ Mar 13 2020 5:59PM Signed by Dr. Yovani Fay @ Mar 13 2020 6:00PM
[2020-03-13] MEDS: Doxycycline 100 MG in Sodium Chloride 0.9% 100 ML IV SCH (19:33)
[2020-03-13] MEDS: Melatonin 3 MG Tab PO SCH (20:33)
[2020-03-13] MEDS: Apixaban 5 MG Tab PO SCH (20:33)
[2020-03-14] MEDS: Piperacillin/Tazobactam 3.375 GM in Sodium Chloride 0.9% 50 ML IV SCH ×2 (00:20→05:59)
[2020-03-14] MEDS: Acetaminophen 325 MG Tab PO PRN ×3 (00:28→16:11)
[2020-03-14] MEDS: Sodium Chloride 0.9% 1,000 ML IV SCH (04:00)
[2020-03-14] MEDS: Metoprolol Tartrate 25 MG Tab PO SCH ×3 (06:01→20:30)
[2020-03-14] MEDS: Doxycycline 100 MG in Sodium Chloride 0.9% 100 ML IV SCH ×3 (08:09→20:33)
[2020-03-14] MEDS ORDERED: Hydrochlorothiazide 25 MG Tab PO SCH (09:00)
[2020-03-14] MEDS ORDERED: Potassium Chloride 20 MEQ Tab.ER PO ONE (09:00)
[2020-03-14] MEDS: Lactobacillus Rhamnosus GG (Probiotic) Cap PO SCH ×2 (10:03→20:25)
--- NOTE | 2020-03-14 10:42 | PCM.PN ---
- General Info Date of Service: 03/14/20 Subjective Update: Mr. Infante unfortunately developed fever after admission yesterday, with a temp of greater than 102 degrees. Blood cultures were obtained and are pending. Chest x-ray showed no obvious infiltrates or evidence of active infection. Urinalysis obtained in the emergency department was negative for any evidence of infection. He was noted to have modest elevation in white blood cell count and modest elevation of bilirubin. Patient denies any difficulty with eating but his reports that his oral intake at home had been negligible. - Review of Systems General: Reports: Fever, Weakness, Fatigue, Chills Pulmonary: Reports: No Symptoms Cardiovascular: Reports: No Symptoms Gastrointestinal: Reports: No Symptoms - Patient Data Vitals - Most Recent: Last Vital Signs Temp 99.0 F 03/14/20 08:50 Pulse 91 03/14/20 07:00 Resp 20 03/14/20 07:00 BP 124/48 L 03/14/20 07:00 Pulse Ox 91 L 03/14/20 07:00 Weight - Most Recent: 212 lb 15.465 oz I&O - Last 24 Hours: Intake & Output 03/13/20 03/14/20 03/14/20 22:59 06:59 14:59 Intake Total 1200 935 500 Output Total 200 Balance 1000 935 500 Lab Results Last 24 Hours: Laboratory Results - last 24 hr 03/13/20 03/13/20 03/13/20 Range/Units 12:15 12:15 15:17 WBC 11.4 H (4.5-11.0) K/uL RBC 4.50 (4.30-5.90) M/uL Hgb 12.7 (12.0-15.0) g/dL Hct 40.3 (40.0-54.0) % MCV 90 (80-98) fL MCH 28 (27-31) pg MCHC 32 (32-36) % Plt Count 271 (150-400) K/uL Neut % (Auto) 90 H (36-66) % Lymph % (Auto) 3 L (24-44) % [place] % (Auto) 7 H (2-6) % Eos % (Auto) 0 L (2-4) % Baso % (Auto) 0 (0-1) % Sodium 135 L (140-148) mmol/L Potassium 3.3 L (3.6-5.2) mmol/L Chloride 98 L (100-108) mmol/L Carbon Dioxide 28 (21-32) mmol/L Anion Gap 12.3 (5.0-14.0) mmol/L BUN 18 (7-18) mg/dL Creatinine 1.1 (0.8-1.3) mg/dL Est Cr Clr Drug Dosing 41.16 mL/min Estimated GFR (MDRD) > 60 (>60) Glucose 108 H (74-106) mg/dL Calcium 8.9 (8.5-10.1) mg/dL Total Bilirubin 1.3 H D (0.2-1.0) mg/dL Direct Bilirubin (0.0-0.2) mg/dL Indirect Bilirubin AST 50 H (15-37) U/L ALT 62 (12-78) U/L Alkaline Phosphatase 60 (46-116) U/L Creatine Kinase 196 (39-308) U/L Total Protein 6.0 L (6.4-8.2) g/dL Albumin 2.6 L (3.4-5.0) g/dL Globulin 3.4 (2.3-3.5) g/dL Albumin/Globulin Ratio 0.8 L (1.2-2.2) Procalcitonin ng/mL Urine Color Yellow (YELLOW) Urine Appearance Clear (CLEAR) Urine pH 6.0 (5.0-8.0) Ur Specific [place] 1.020 (1.008-1.030) Urine Protein 30 H (NEGATIVE) mg/dL Urine Glucose (UA) Negative (NEGATIVE) mg/dL Urine Ketones Trace H (NEGATIVE) mg/dL Urine Occult Blood Trace-lysed H (NEGATIVE) Urine Nitrite Negative (NEGATIVE) Urine Bilirubin Negative (NEGATIVE) Urine Urobilinogen 2.0 H (0.2-1.0) EU/dL Ur Leukocyte Esterase Negative (NEGATIVE) Urine RBC Not seen (0-5) Urine WBC Not seen (0-5) Ur Epithelial Cells Not seen Urine Bacteria Not seen 03/13/20 03/14/20 03/14/20 Range/Units 17:18 04:28 05:00 WBC (4.5-11.0) K/uL RBC (4.30-5.90) M/uL Hgb (12.0-15.0) g/dL Hct (40.0-54.0) % MCV (80-98) fL MCH (27-31) pg MCHC (32-36) % Plt Count (150-400) K/uL Neut % (Auto) (36-66) % Lymph % (Auto) (24-44) % [place] % (Auto) (2-6) % Eos % (Auto) (2-4) % Baso % (Auto) (0-1) % Sodium 135 L (140-148) mmol/L Potassium 3.5 L (3.6-5.2) mmol/L Chloride 100 (100-108) mmol/L Carbon Dioxide 26 (21-32) mmol/L Anion Gap 12.5 (5.0-14.0) mmol/L BUN 19 H (7-18) mg/dL Creatinine 1.1 (0.8-1.3) mg/dL Est Cr Clr Drug Dosing 33.46 mL/min Estimated GFR (MDRD) > 60 (>60) Glucose 100 (74-106) mg/dL Calcium 8.4 L (8.5-10.1) mg/dL Total Bilirubin 1.2 H (0.2-1.0) mg/dL Direct Bilirubin 0.51 H (0.0-0.2) mg/dL Indirect Bilirubin 0.69 AST 38 H (15-37) U/L ALT 48 (12-78) U/L Alkaline Phosphatase 50 (46-116) U/L Creatine Kinase (39-308) U/L Total Protein 5.1 L (6.4-8.2) g/dL Albumin 2.2 L (3.4-5.0) g/dL Globulin 2.9 (2.3-3.5) g/dL Albumin/Globulin Ratio 0.8 L (1.2-2.2) Procalcitonin 0.05 ng/mL Urine Color (YELLOW) Urine Appearance (CLEAR) Urine pH (5.0-8.0) Ur Specific [place] (1.008-1.030) Urine Protein (NEGATIVE) mg/dL Urine Glucose (UA) (NEGATIVE) mg/dL Urine Ketones (NEGATIVE) mg/dL Urine Occult Blood (NEGATIVE) Urine Nitrite (NEGATIVE) Urine Bilirubin (NEGATIVE) Urine Urobilinogen (0.2-1.0) EU/dL Ur Leukocyte Esterase (NEGATIVE) Urine RBC (0-5) Urine WBC (0-5) Ur Epithelial Cells Urine Bacteria 03/14/20 Range/Units 05:11 WBC 10.4 (4.5-11.0) K/uL RBC 4.04 L (4.30-5.90) M/uL Hgb 11.8 L (12.0-15.0) g/dL Hct 36.4 L (40.0-54.0) % MCV 90 (80-98) fL MCH 29 (27-31) pg MCHC 32 (32-36) % Plt Count 193 (150-400) K/uL Neut % (Auto) 89 H (36-66) % Lymph % (Auto) 4 L (24-44) % [place] % (Auto) 6 (2-6) % Eos % (Auto) 0 L (2-4) % Baso % (Auto) 0 (0-1) % Sodium (140-148) mmol/L Potassium (3.6-5.2) mmol/L Chloride (100-108) mmol/L Carbon Dioxide (21-32) mmol/L Anion Gap (5.0-14.0) mmol/L BUN (7-18) mg/dL Creatinine (0.8-1.3) mg/dL Est Cr Clr Drug Dosing mL/min Estimated GFR (MDRD) (>60) Glucose (74-106) mg/dL Calcium (8.5-10.1) mg/dL Total Bilirubin (0.2-1.0) mg/dL Direct Bilirubin (0.0-0.2) mg/dL Indirect Bilirubin AST (15-37) U/L ALT (12-78) U/L Alkaline Phosphatase (46-116) U/L Creatine Kinase (39-308) U/L Total Protein (6.4-8.2) g/dL Albumin (3.4-5.0) g/dL Globulin (2.3-3.5) g/dL Albumin/Globulin Ratio (1.2-2.2) Procalcitonin ng/mL Urine Color (YELLOW) Urine Appearance (CLEAR) Urine pH (5.0-8.0) Ur Specific [place] (1.008-1.030) Urine Protein (NEGATIVE) mg/dL Urine Glucose (UA) (NEGATIVE) mg/dL Urine Ketones (NEGATIVE) mg/dL Urine Occult Blood (NEGATIVE) Urine Nitrite (NEGATIVE) Urine Bilirubin (NEGATIVE) Urine Urobilinogen (0.2-1.0) EU/dL Ur Leukocyte Esterase (NEGATIVE) Urine RBC (0-5) Urine WBC (0-5) Ur Epithelial Cells Urine Bacteria Brock Results Last 24 Hours: Microbiology 03/14/20 06:32 Clostridioides difficile (PCR) - Final Stool / Feces Med Orders - Current: Current Medications Acetaminophen (Tylenol) 650 mg PO Q4H PRN PRN Reason: Pain (Mild 1-3)/fever Last Admin: 03/14/20 08:20 Dose: 650 mg Documented by: Apixaban (Eliquis) 5 mg PO BID [facility] Last Admin: 03/13/20 20:33 Dose: 5 mg Documented by: Aspirin (Halfprin) 81 mg PO DAILY [facility] Ferrous Sulfate (Ferrous Sulfate) 325 mg PO DAILY [facility] Sodium Chloride (Normal Saline) 1,000 mls @ 100 mls/hr IV ASDIRECTED [facility] Last Admin: 03/14/20 04:00 Dose: 100 mls/hr Documented by: Doxycycline Hyclate 100 mg/ (Sodium Chloride) 100 mls @ 100 mls/hr IV Q12H [facility] Last Admin: 03/14/20 08:09 Dose: 100 mls/hr Documented by: Piperacillin/Tazobactam/ (Dextrose 3.375 gm/ Premix) 50 mls @ 100 mls/hr IV Q6H [facility] Lactobacillus Rhamnosus (Culturelle) 1 cap PO BID [facility] Last Admin: 03/14/20 10:03 Dose: 1 cap Documented by: Lisinopril (Prinivil) 20 mg PO DAILY [facility] Melatonin (Melatonin) 9 mg PO BEDTIME [facility] Last Admin: 03/13/20 20:33 Dose: 9 mg Documented by: Metoprolol Tartrate (Lopressor) 25 mg PO Q12H [facility] Polyethylene Glycol (Miralax) 17 gm PO DAILY PRN PRN Reason: Constipation Propafenone HCl (Rythmol) 225 mg PO DAILY [facility] Simvastatin (Zocor) 20 mg PO BEDTIME [facility] Sodium Chloride (Saline Flush) 10 ml FLUSH ASDIRECTED PRN PRN Reason: Keep Vein Open Discontinued Medications Hydrochlorothiazide (Hydrochlorothiazide) 25 mg PO DAILY [facility] Piperacillin Sod/Tazobactam (Sod 3.375 gm/ Sodium Chloride) 50 mls @ 100 mls/hr IV Q6H [facility] Last Admin: 03/14/20 05:59 Dose: 100 mls/hr Documented by: Metoprolol Tartrate (Lopressor) 12.5 mg PO Q12H [facility] Last Admin: 03/14/20 06:01 Dose: 12.5 mg Documented by: Potassium Chloride (Klor-Con M20) 40 meq PO ONETIME ONE Stop: 03/13/20 16:56 Last Admin: 03/13/20 17:44 Dose: 40 meq Documented by: Potassium Chloride (Klor-Con M20) 40 meq PO ONETIME ONE Stop: 03/14/20 09:01 Last Admin: 03/14/20 10:03 Dose: 40 meq Documented by: - Exam Quality Assessment: DVT Prophylaxis General: Alert, Cooperative, Mild Distress. No: Oriented Lungs: Clear to Auscultation, Normal Respiratory Effort, Decreased Breath Sounds Cardiovascular: Regular Rate, Regular Rhythm, No Murmurs GI/Abdominal Exam: Soft, Non-Tender, No Organomegaly, No Distention Extremities: Non-Tender, No Pedal Edema Sepsis Event Note - Evaluation Sepsis Screening Result: No Definite Risk - Focused Exam Vital Signs: Vital Signs Temp Temp Pulse Pulse Resp BP BP 03/14/20 08:50 99.0 F 03/14/20 08:20 100.0 F 03/14/20 07:00 100.0 F 91 20 124/48 L 03/14/20 06:01 102 H 116/64 03/14/20 03:00 100.6 F 95 16 112/56 L 03/14/20 00:58 101.1 F H 03/14/20 00:28 101.2 F H 03/14/20 00:24 101.6 F H 120 H 18 122/67 Pulse Ox 03/14/20 08:50 03/14/20 08:20 03/14/20 07:00 91 L 03/14/20 06:01 03/14/20 03:00 93 L 03/14/20 00:58 03/14/20 00:28 03/14/20 00:24 90 L - Problem List Review Problem List Initiated/Reviewed/Updated: Yes - My Orders Last 24 Hours: My Active Orders 03/13/20 Lunch 2 Gram Sodium Diet [DIET] 03/13/20 15:19 Resuscitation Status Routine 03/13/20 16:00 Sodium Chloride 0.9% [Normal Saline] 1,000 ml IV ASDIRECTED 03/13/20 16:26 Acetaminophen [TylenoL] 650 mg PO Q4H PRN Sodium Chloride 0.9% [Saline Flush] 10 ml FLUSH ASDIRECTED PRN polyethylene glycoL 3350 [MiraLAX] 17 gm PO DAILY PRN 03/13/20 16:26 Ambulate [RC] QID Height and Weight [RC] DAILY Intake and Output [RC] QSHIFT Notify Provider Vital Signs [RC] ASDIRECTED Oxygen Therapy [RC] PRN Up to Chair [RC] QID VTE/DVT Education [RC] Per Unit Routine Vital Signs [RC] Q4H PT Evaluation and Treatment [CONS] Routine Saline Lock Insert [OM.PC] Routine 03/13/20 16:48 Blood Culture x2 Reflex Set [OM.PC] Urgent 03/13/20 17:00 CULTURE BLOOD [BC] Stat Lactobacillus Rhamnosus GG [Culturelle] 1 cap PO BID 03/13/20 17:10 CULTURE BLOOD [BC] Stat 03/13/20 20:00 Doxycycline [Vibramycin] 100 mg Sodium Chloride 0.9% [Normal Saline] 100 ml IV Q12H 03/13/20 21:00 Apixaban [Eliquis] 5 mg PO BID Melatonin 9 mg PO BEDTIME 03/14/20 08:21 Abdomen Comp [US] Stat 03/14/20 09:00 Aspirin [Halfprin] 81 mg PO DAILY Ferrous Sulfate 325 mg PO DAILY Metoprolol Tartrate [Lopressor] 25 mg PO Q12H Propafenone [Rythmol] 225 mg PO DAILY lisinopriL [Prinivil] 20 mg PO DAILY 03/14/20 10:31 Patient Status [ADT] Routine 03/14/20 12:00 Piperacillin/Tazobactam/Dext [Zosyn in Dextrose Iso-Osmotic 3.375 GM] 3.375 gm Premix Bag 1 bag IV Q6H 03/14/20 21:00 Simvastatin [Zocor] 20 mg PO BEDTIME 03/15/20 05:00 CBC WITH AUTO DIFF [HEME] Timed COMPREHENSIVE METABOLIC PN,CMP [CHEM] Timed - Plan Plan:: ASSESSMENT AND PLAN COVID-19-no evidence of active infection at the present time. He has completed treatment with remdesivir and convalescent plasma. Received 6 days of dexamethasone prior to discharge. Currently experiencing no hypoxia or other symptoms which could be attributed to active infection. -Supportive care FEVER-developed after admission yesterday, CRP is normal. No other symptoms of active Covid infection including respiratory symptoms. Chest x-ray and urinalysis are negative for obvious infection. White blood cell count modestly elevated on admission now within normal range. -Blood cultures pending -Continue IV Zosyn and doxycycline pending further evaluation -Abdominal ultrasound to evaluate for gallbladder disease, given anorexia and modest elevation in bilirubin -Changed to inpatient status GENERALIZED WEAKNESS-likely secondary to recent Covid infection and current acute infection -Physical therapy consult -snf placement for restorative physical therapy and Occupational Therapy ATRIAL FIBRILLATION-rate intermittently into the 100s -Increase metoprolol 25 mg p.o. twice daily -Discontinue Norvasc and hydrochlorothiazide -Continue propafenone -Start apixaban for anticoagulation ESSENTIAL HYPERTENSION-blood pressure acceptable. MAINTENANCE ISSUES - DVT prophylaxis -enoxaparin - GI prophylaxis -not indicated - Nutrition -regular - Gan catheter -not indicated DISPOSITION -I would anticipate discharge to long-term for restorative physical therapy and Occupational Therapy
[2020-03-14] MEDS: Piperacillin/Tazobactam/Dext 3.375 GM in Premix Bag 1 BAG IV SCH ×2 (11:57→17:15)
[2020-03-14] MEDS: Apixaban 5 MG Tab PO SCH ×2 (13:52→20:26)
[2020-03-14] MEDS: Aspirin 81 MG Tab.EC PO SCH (16:15)
[2020-03-14] MEDS: Ferrous Sulfate 325 MG Tab PO SCH (16:15)
[2020-03-14] MEDS: Lisinopril 20 MG Tab PO SCH (16:16)
[2020-03-14] MEDS ORDERED: Furosemide 20 MG/2 ML VIAL IVPUSH ONE (16:54)
[2020-03-14] MEDS: Melatonin 3 MG Tab PO SCH (20:25)
[2020-03-14] MEDS: Simvastatin 20 MG Tab PO SCH (20:25)
[2020-03-15] MEDS: Piperacillin/Tazobactam/Dext 3.375 GM in Premix Bag 1 BAG IV SCH ×3 (00:07→12:39)
[2020-03-15] MEDS: Doxycycline 100 MG in Sodium Chloride 0.9% 100 ML IV SCH (08:13)
[2020-03-15] MEDS: Metoprolol Tartrate 25 MG Tab PO SCH ×2 (08:18→22:58)
[2020-03-15] MEDS: Lactobacillus Rhamnosus GG (Probiotic) Cap PO SCH ×2 (08:18→22:52)
[2020-03-15] MEDS: Apixaban 5 MG Tab PO SCH ×2 (08:19→22:52)
[2020-03-15] MEDS: Lisinopril 20 MG Tab PO SCH (08:20)
--- NOTE | 2020-03-15 09:45 | CR ---
Shoulder Comp Rt CLINICAL HISTORY: Pain after fall FINDINGS: There is moderate deformity of the proximal humerus and glenoid fossa. There is superimposed osseous density over the acromium and upper humeral head. This is similar to prior study. There are severe degenerative changes at the AC joint. There are is a small bony density just above the coracoid process. This appearance has changed since the earlier study in March. Fracture fragment is not excluded. 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 Superimposed the bony density over the acromium and upper humerus may represent spurring or ossified loose body is previously described Ossific density just above the coracoid process was not seen on prior study. The fracture fragment is not excluded. If clinically relevant, CT shoulder is a consideration
--- NOTE | 2020-03-15 11:03 | US ---
Abdomen Comp CLINICAL HISTORY: Fever, anorexia COMPARISON: None. FINDINGS: The liver is free of mass or biliary dilatation. There is homogeneous parenchymal echogenicity. No free fluid seen.The gallbladder has a normal appearance. The common duct measures 4 mm. The pancreas appears normal where seen. Right kidney measures 12.2 x 5.1 x 5.2 cm. There is a 3.8 x 3.1 x 3.5 cm simple cyst. Left kidney measures 11.5 x 5.7 x 6.1 cm. There is a 4.7 x 4.2 x 4.0 cm cyst and a 1.0 x 0.8 x 0.6 cm cyst..The aorta is not aneurysmal. The inferior vena cava is unremarkable. The spleen is upper limits of normal size. IMPRESSION: Bilateral renal cysts described above
[2020-03-15] MEDS: Aspirin 81 MG Tab.EC PO SCH (12:44)
[2020-03-15] MEDS: Ferrous Sulfate 325 MG Tab PO SCH (12:44)
--- NOTE | 2020-03-15 13:27 | PCM.PN ---
- General Info Date of Service: 03/15/20 Subjective Update: There were no acute events overnight. Patient says that he feels well and offers no concerns. He does not have any shortness of breath. He has a rare cough. He says his shoulders hurt about his much as usual but not worse. No abdominal pain. He has been having diarrhea. He does continue to have fevers. Cultures are all negative. Functional Status: Reports: Pain Controlled - Review of Systems General: Reports: Fever - Patient Data Vitals - Most Recent: Last Vital Signs Temp 37.3 C 03/15/20 10:52 Pulse 76 03/15/20 10:52 Resp 18 03/15/20 10:52 BP 103/77 03/15/20 10:52 Pulse Ox 87 L 03/15/20 10:52 Weight - Most Recent: 98.9 kg I&O - Last 24 Hours: Intake & Output 03/14/20 03/15/20 03/15/20 22:59 06:59 14:59 Intake Total 3392 472 7256 Output Total 150 Balance 988 [id number] [id number] Lab Results Last 24 Hours: Laboratory Results - last 24 hr 03/15/20 03/15/20 Range/Units 04:00 04:00 WBC 11.7 H (4.5-11.0) K/uL RBC 4.30 (4.30-5.90) M/uL Hgb 12.5 (12.0-15.0) g/dL Hct 39.0 L (40.0-54.0) % MCV 91 (80-98) fL MCH 29 (27-31) pg MCHC 32 (32-36) % Plt Count 175 (150-400) K/uL Neut % (Auto) 86 H (36-66) % Lymph % (Auto) 5 L (24-44) % [place] % (Auto) 9 H (2-6) % Eos % (Auto) 0 L (2-4) % Baso % (Auto) 0 (0-1) % Sodium 134 L (140-148) mmol/L Potassium 3.5 L (3.6-5.2) mmol/L Chloride 100 (100-108) mmol/L Carbon Dioxide 26 (21-32) mmol/L Anion Gap 11.5 (5.0-14.0) mmol/L BUN 18 (7-18) mg/dL Creatinine 1.1 (0.8-1.3) mg/dL Est Cr Clr Drug Dosing 36.54 mL/min Estimated GFR (MDRD) > 60 (>60) Glucose 100 (74-106) mg/dL Calcium 8.4 L (8.5-10.1) mg/dL Total Bilirubin 1.0 (0.2-1.0) mg/dL AST 36 (15-37) U/L ALT 43 (12-78) U/L Alkaline Phosphatase 50 (46-116) U/L Total Protein 5.5 L (6.4-8.2) g/dL Albumin 2.1 L (3.4-5.0) g/dL Globulin 3.4 (2.3-3.5) g/dL Albumin/Globulin Ratio 0.6 L (1.2-2.2) Brock Results Last 24 Hours: Microbiology 03/13/20 17:10 Aerobic Blood Culture - Preliminary Blood - Arm, Right NO GROWTH AFTER 1 DAY Anaerobic Blood Culture - Preliminary NO GROWTH AFTER 1 DAY 03/13/20 17:00 Aerobic Blood Culture - Preliminary Blood - Arm, Right NO GROWTH AFTER 1 DAY Anaerobic Blood Culture - Preliminary NO GROWTH AFTER 1 DAY 03/14/20 06:32 Clostridioides difficile (PCR) - Final Stool / Feces Med Orders - Current: Current Medications Acetaminophen (Tylenol) 650 mg PO Q4H PRN PRN Reason: Pain (Mild 1-3)/fever Last Admin: 03/14/20 16:11 Dose: 650 mg Documented by: Apixaban (Eliquis) 5 mg PO BID [facility] Last Admin: 03/15/20 08:19 Dose: 5 mg Documented by: Aspirin (Halfprin) 81 mg PO DAILY [facility] Last Admin: 03/15/20 12:44 Dose: 81 mg Documented by: Dexamethasone (Dexamethasone) 6 mg PO Q24H [facility] Ferrous Sulfate (Ferrous Sulfate) 325 mg PO DAILY [facility] Last Admin: 03/15/20 12:44 Dose: 325 mg Documented by: Lactobacillus Rhamnosus (Culturelle) 1 cap PO BID [facility] Last Admin: 03/15/20 08:18 Dose: 1 cap Documented by: Lisinopril (Prinivil) 20 mg PO DAILY [facility] Last Admin: 03/15/20 08:20 Dose: 20 mg Documented by: Melatonin (Melatonin) 9 mg PO BEDTIME [facility] Last Admin: 03/14/20 20:25 Dose: 9 mg Documented by: Metoprolol Tartrate (Lopressor) 25 mg PO Q12H [facility] Last Admin: 03/15/20 08:18 Dose: 25 mg Documented by: Polyethylene Glycol (Miralax) 17 gm PO DAILY PRN PRN Reason: Constipation Propafenone HCl (Rythmol) 225 mg PO DAILY [facility] Last Admin: 03/15/20 08:19 Dose: 225 mg Documented by: Simvastatin (Zocor) 20 mg PO BEDTIME [facility] Last Admin: 03/14/20 20:25 Dose: 20 mg Documented by: Sodium Chloride (Saline Flush) 10 ml FLUSH ASDIRECTED PRN PRN Reason: Keep Vein Open Discontinued Medications Furosemide (Lasix) 20 mg IVPUSH NOW ONE Stop: 03/14/20 16:55 Last Admin: 03/14/20 17:15 Dose: 20 mg Documented by: Hydrochlorothiazide (Hydrochlorothiazide) 25 mg PO DAILY [facility] Sodium Chloride (Normal Saline) 1,000 mls @ 100 mls/hr IV ASDIRECTED [facility] Last Admin: 03/14/20 04:00 Dose: 100 mls/hr Documented by: Piperacillin Sod/Tazobactam (Sod 3.375 gm/ Sodium Chloride) 50 mls @ 100 mls/hr IV Q6H [facility] Last Admin: 03/14/20 05:59 Dose: 100 mls/hr Documented by: Doxycycline Hyclate 100 mg/ (Sodium Chloride) 100 mls @ 100 mls/hr IV Q12H [facility] Last Admin: 03/15/20 08:13 Dose: 100 mls/hr Documented by: Piperacillin/Tazobactam/ (Dextrose 3.375 gm/ Premix) 50 mls @ 100 mls/hr IV Q6H [facility] Last Admin: 03/15/20 12:39 Dose: 100 mls/hr Documented by: Metoprolol Tartrate (Lopressor) 12.5 mg PO Q12H [facility] Last Admin: 03/14/20 06:01 Dose: 12.5 mg Documented by: Potassium Chloride (Klor-Con M20) 40 meq PO ONETIME ONE Stop: 03/13/20 16:56 Last Admin: 03/13/20 17:44 Dose: 40 meq Documented by: Potassium Chloride (Klor-Con M20) 40 meq PO ONETIME ONE Stop: 03/14/20 09:01 Last Admin: 03/14/20 10:03 Dose: 40 meq Documented by: - Exam Quality Assessment: Supplemental Oxygen General: Alert, Cooperative, No Acute Distress. No: Oriented Lungs: Normal Respiratory Effort, Decreased Breath Sounds (Mild both bases). No: Wheezing Cardiovascular: Regular Rate, Regular Rhythm GI/Abdominal Exam: Soft, No Distention Extremities: No Pedal Edema. No: Increased Warmth Skin: Warm, Dry Psy/Mental Status: Alert, Normal Affect Sepsis Event Note - Evaluation Sepsis Screening Result: No Definite Risk - Focused Exam Vital Signs: Vital Signs Temp Pulse Pulse Resp BP BP Pulse Ox 03/15/20 10:52 37.3 C 76 18 103/77 87 L 03/15/20 08:20 128/73 03/15/20 08:19 83 03/15/20 08:18 83 128/73 03/15/20 07:46 38.3 C H 83 16 128/73 96 03/15/20 05:38 38.3 C H 91 16 93 L - Problem List Review Problem List Initiated/Reviewed/Updated: Yes - My Orders Last 24 Hours: My Active Orders 03/15/20 13:30 dexAMETHasone 6 mg PO Q24H - Plan Plan:: ASSESSMENT AND PLAN COVID-19 pneumonia-I suspect his fevers are related to residual infection. He is hypoxic and require supplemental oxygen. They did seem to begin again after his steroids were stopped several days prior to admission. There is no evidence to support other infection at this time. His cultures are all negative. Urinalysis was clear. -Dexamethasone 6 mg x 5 days -Stop antibiotics -Symptomatic management GENERALIZED WEAKNESS-likely secondary to recent Covid infection. -Physical therapy consult -residential placement for restorative physical therapy and Occupational Thera py ATRIAL FIBRILLATION-rate control has been good. -Increase metoprolol 25 mg p.o. 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 There is no formal diagnosis but he appears to have compatible memory issues. -Outpatient follow-up ESSENTIAL HYPERTENSION-blood pressure acceptable. MAINTENANCE ISSUES - DVT prophylaxis -apixaban - GI prophylaxis -not indicated - Nutrition -regular DISPOSITION -I would [facility]ative physical therapy and Occupational Therapy Antonio Washington MD
[2020-03-15] MEDS: Dexamethasone 2 MG Tab PO SCH (15:02)
[2020-03-15] MEDS ORDERED: Loperamide 2 MG Cap PO PRN (15:24)
[2020-03-15] MEDS: Melatonin 3 MG Tab PO SCH (22:52)
[2020-03-15] MEDS: Simvastatin 20 MG Tab PO SCH (22:52)
[2020-03-16] MEDS: Metoprolol Tartrate 25 MG Tab PO SCH ×2 (08:55→22:06)
[2020-03-16] MEDS: Ferrous Sulfate 325 MG Tab PO SCH (08:55)
[2020-03-16] MEDS: Lactobacillus Rhamnosus GG (Probiotic) Cap PO SCH ×2 (08:55→22:13)
[2020-03-16] MEDS: Apixaban 5 MG Tab PO SCH ×2 (08:58→22:13)
[2020-03-16] MEDS: Lisinopril 20 MG Tab PO SCH (08:59)
[2020-03-16] MEDS: Aspirin 81 MG Tab.EC PO SCH (08:59)
--- NOTE | 2020-03-16 12:37 | PCM.PN ---
- General Info Date of Service: 03/16/20 Subjective Update: No acute events overnight. Patient feels well. He does not feel short of breath. He is not coughing. Diarrhea is better. Shoulders are feeling a little better. Strength is steadily improving. He does continue to use a walker. He does continue to require supplemental oxygen. Low-grade fever last night but temp normal today. Functional Status: Reports: Pain Controlled, Tolerating Diet - Review of Systems General: Denies: Fever Pulmonary: Denies: Shortness of Breath Gastrointestinal: Denies: Abdominal Pain - Patient Data Vitals - Most Recent: Last Vital Signs Temp 35.3 C L 03/16/20 11:05 Pulse 74 03/16/20 11:05 Resp 16 03/16/20 11:05 BP 126/101 H 03/16/20 11:05 Pulse Ox 95 03/16/20 11:05 Weight - Most Recent: 96.9 kg I&O - Last 24 Hours: Intake & Output 03/15/20 03/16/20 03/16/20 22:59 06:59 14:59 Intake Total 1140 260 550 Output Total 500 Balance 1140 -240 550 Brock Results Last 24 Hours: Microbiology 03/13/20 17:00 Aerobic Blood Culture - Preliminary Blood - Arm, Right NO GROWTH AFTER 2 DAYS Anaerobic Blood Culture - Preliminary NO GROWTH AFTER 2 DAYS 03/13/20 17:10 Aerobic Blood Culture - Preliminary Blood - Arm, Right NO GROWTH AFTER 2 DAYS Anaerobic Blood Culture - Preliminary NO GROWTH AFTER 2 DAYS Med Orders - Current: Current Medications Acetaminophen (Tylenol) 650 mg PO Q4H PRN PRN Reason: Pain (Mild 1-3)/fever Last Admin: 03/14/20 16:11 Dose: 650 mg Documented by: Apixaban (Eliquis) 5 mg PO BID [facility] Last Admin: 03/16/20 08:58 Dose: 5 mg Documented by: Aspirin (Halfprin) 81 mg PO DAILY [facility] Last Admin: 03/16/20 08:59 Dose: 81 mg Documented by: Dexamethasone (Dexamethasone) 6 mg PO Q24H [facility] Last Admin: 03/15/20 15:02 Dose: 6 mg Documented by: Ferrous Sulfate (Ferrous Sulfate) 325 mg PO DAILY [facility] Last Admin: 03/16/20 08:55 Dose: 325 mg Documented by: Lactobacillus Rhamnosus (Culturelle) 1 cap PO BID [facility] Last Admin: 03/16/20 08:55 Dose: 1 cap Documented by: Lisinopril (Prinivil) 20 mg PO DAILY [facility] Last Admin: 03/16/20 08:59 Dose: 20 mg Documented by: Loperamide HCl (Imodium) 2 mg PO Q4H PRN PRN Reason: Diarrhea Last Admin: 03/15/20 17:10 Dose: 2 mg Documented by: Melatonin (Melatonin) 9 mg PO BEDTIME [facility] Last Admin: 03/15/20 22:52 Dose: 9 mg Documented by: Metoprolol Tartrate (Lopressor) 25 mg PO Q12H [facility] Last Admin: 03/16/20 08:55 Dose: 25 mg Documented by: Polyethylene Glycol (Miralax) 17 gm PO DAILY PRN PRN Reason: Constipation Propafenone HCl (Rythmol) 225 mg PO DAILY [facility] Last Admin: 03/16/20 09:00 Dose: 225 mg Documented by: Simvastatin (Zocor) 20 mg PO BEDTIME [facility] Last Admin: 03/15/20 22:52 Dose: 20 mg Documented by: Sodium Chloride (Saline Flush) 10 ml FLUSH ASDIRECTED PRN PRN Reason: Keep Vein Open Discontinued Medications Furosemide (Lasix) 20 mg IVPUSH NOW ONE Stop: 03/14/20 16:55 Last Admin: 03/14/20 17:15 Dose: 20 mg Documented by: Hydrochlorothiazide (Hydrochlorothiazide) 25 mg PO DAILY [facility] Sodium Chloride (Normal Saline) 1,000 mls @ 100 mls/hr IV ASDIRECTED [facility] Last Admin: 03/14/20 04:00 Dose: 100 mls/hr Documented by: Piperacillin Sod/Tazobactam (Sod 3.375 gm/ Sodium Chloride) 50 mls @ 100 mls/hr IV Q6H [facility] Last Admin: 03/14/20 05:59 Dose: 100 mls/hr Documented by: Doxycycline Hyclate 100 mg/ (Sodium Chloride) 100 mls @ 100 mls/hr IV Q12H [facility] Last Admin: 03/15/20 08:13 Dose: 100 mls/hr Documented by: Piperacillin/Tazobactam/ (Dextrose 3.375 gm/ Premix) 50 mls @ 100 mls/hr IV Q6H [facility] Last Admin: 03/15/20 12:39 Dose: 100 mls/hr Documented by: Metoprolol Tartrate (Lopressor) 12.5 mg PO Q12H [facility] Last Admin: 03/14/20 06:01 Dose: 12.5 mg Documented by: Potassium Chloride (Klor-Con M20) 40 meq PO ONETIME ONE Stop: 03/13/20 16:56 Last Admin: 03/13/20 17:44 Dose: 40 meq Documented by: Potassium Chloride (Klor-Con M20) 40 meq PO ONETIME ONE Stop: 03/14/20 09:01 Last Admin: 03/14/20 10:03 Dose: 40 meq Documented by: - Exam Quality Assessment: Supplemental Oxygen General: Alert, Cooperative, No Acute Distress Lungs: Normal Respiratory Effort. No: Wheezing Cardiovascular: Regular Rate, Irregular Rhythm GI/Abdominal Exam: Soft, No Distention Extremities: No Pedal Edema Psy/Mental Status: Alert, Normal Affect Sepsis Event Note - Evaluation Sepsis Screening Result: No Definite Risk - Focused Exam Vital Signs: Vital Signs Temp Pulse Pulse Resp BP BP Pulse Ox 03/16/20 11:05 35.3 C L 74 16 126/101 H 95 03/16/20 09:05 36.1 C 76 18 128/71 93 L 03/16/20 09:00 76 03/16/20 08:59 128/71 03/16/20 08:55 76 128/71 03/16/20 03:00 35.9 C L 81 20 138/73 92 L - Problem List Review Problem List Initiated/Reviewed/Updated: Yes - My Orders Last 24 Hours: My Active Orders 03/15/20 14:00 dexAMETHasone 6 mg PO Q24H 03/15/20 15:24 Loperamide [Imodium] 2 mg PO Q4H PRN 03/17/20 05:00 BASIC METABOLIC PANEL,BMP [CHEM] Timed CBC W/O DIFF,HEMOGRAM [HEME] Timed (1) - Plan Plan:: ASSESSMENT AND PLAN COVID-19 pneumonia-I suspect his fevers are related to residual infection. He is still hypoxic but otherwise improving. Strength steadily improving. -Dexamethasone 6 mg x 5 days -Stop antibiotics -Symptomatic management GENERALIZED WEAKNESS-likely secondary to recent Covid infection. -Physical therapy -Patient and prefer home care with physical therapy rather than subacute rehab ATRIAL FIBRILLATION-rate control has been good. -Increase metoprolol 25 mg p.o. 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 There is no formal diagnosis but he appears to have compatible memory issues. -Outpatient follow-up ESSENTIAL HYPERTENSION-blood pressure well controlled. MAINTENANCE ISSUES - DVT prophylaxis -apixaban - GI prophylaxis -not indicated - Nutrition -regular DISPOSITION -I would anticipate discharge to long-term for restorative physical therapy and Occupational Therapy Antonio Washington MD
[2020-03-16] MEDS: Dexamethasone 2 MG Tab PO SCH (13:56)
[2020-03-16] MEDS: Melatonin 3 MG Tab PO SCH (22:12)
[2020-03-16] MEDS: Simvastatin 20 MG Tab PO SCH (22:13)
[2020-03-17] MEDS: Lisinopril 20 MG Tab PO SCH (08:40)
[2020-03-17] MEDS: Ferrous Sulfate 325 MG Tab PO SCH (08:41)
[2020-03-17] MEDS: Aspirin 81 MG Tab.EC PO SCH (08:41)
[2020-03-17] MEDS: Lactobacillus Rhamnosus GG (Probiotic) Cap PO SCH ×2 (08:41→20:28)
[2020-03-17] MEDS: Metoprolol Tartrate 25 MG Tab PO SCH ×2 (08:41→20:28)
[2020-03-17] MEDS: Apixaban 5 MG Tab PO SCH ×2 (08:41→20:28)
--- NOTE | 2020-03-17 12:26 | PCM.PN ---
- General Info Date of Service: 03/17/20 Subjective Update: No acute events. Patient feels well and offers no concerns. No shortness of breath or cough. No abdominal pain. Appetite good. Strength slowly improving. Requiring 1 L of supplemental oxygen at this time. Vital signs have been stable. Functional Status: Reports: Pain Controlled, Tolerating Diet - Review of Systems General: Reports: Weakness. Denies: Fever - Patient Data Vitals - Most Recent: Last Vital Signs Temp 35.4 C L 03/17/20 12:08 Pulse 96 03/17/20 12:08 Resp 16 03/17/20 12:08 BP 108/62 03/17/20 12:08 Pulse Ox 92 L 03/17/20 12:08 Weight - Most Recent: 98.2 kg I&O - Last 24 Hours: Intake & Output 03/16/20 03/17/20 03/17/20 22:59 06:59 14:59 Intake Total 240 296 360 Output Total 375 200 150 Balance -135 96 210 Lab Results Last 24 Hours: Laboratory Results - last 24 hr 03/17/20 03/17/20 Range/Units 04:50 04:50 WBC 9.6 (4.5-11.0) K/uL RBC 3.86 L (4.30-5.90) M/uL Hgb 11.0 L (12.0-15.0) g/dL Hct 33.9 L (40.0-54.0) % MCV 88 (80-98) fL MCH 29 (27-31) pg MCHC 32 (32-36) % Plt Count 178 (150-400) K/uL Sodium 132 L (140-148) mmol/L Potassium 3.7 (3.6-5.2) mmol/L Chloride 98 L (100-108) mmol/L Carbon Dioxide 24 (21-32) mmol/L Anion Gap 13.7 (5.0-14.0) mmol/L BUN 20 H (7-18) mg/dL Creatinine 0.9 (0.8-1.3) mg/dL Est Cr Clr Drug Dosing 44.66 mL/min Estimated GFR (MDRD) > 60 (>60) Glucose 133 H (74-106) mg/dL Calcium 8.8 (8.5-10.1) mg/dL Brock Results Last 24 Hours: Microbiology 03/13/20 17:00 Aerobic Blood Culture - Preliminary Blood - Arm, Right NO GROWTH AFTER 3 DAYS Anaerobic Blood Culture - Preliminary NO GROWTH AFTER 3 DAYS 03/13/20 17:10 Aerobic Blood Culture - Preliminary Blood - Arm, Right NO GROWTH AFTER 3 DAYS Anaerobic Blood Culture - Preliminary NO GROWTH AFTER 3 DAYS Med Orders - Current: Current Medications Acetaminophen (Tylenol) 650 mg PO Q4H PRN PRN Reason: Pain (Mild 1-3)/fever Last Admin: 03/14/20 16:11 Dose: 650 mg Documented by: Apixaban (Eliquis) 5 mg PO BID [facility] Last Admin: 03/17/20 08:41 Dose: 5 mg Documented by: Aspirin (Halfprin) 81 mg PO DAILY [facility] Last Admin: 03/17/20 08:41 Dose: 81 mg Documented by: Dexamethasone (Dexamethasone) 6 mg PO Q24H [facility] Last Admin: 03/16/20 13:56 Dose: 6 mg Documented by: Ferrous Sulfate (Ferrous Sulfate) 325 mg PO DAILY [facility] Last Admin: 03/17/20 08:41 Dose: 325 mg Documented by: Lactobacillus Rhamnosus (Culturelle) 1 cap PO BID [facility] Last Admin: 03/17/20 08:41 Dose: 1 cap Documented by: Lisinopril (Prinivil) 20 mg PO DAILY [facility] Last Admin: 03/17/20 08:40 Dose: 20 mg Documented by: Loperamide HCl (Imodium) 2 mg PO Q4H PRN PRN Reason: Diarrhea Last Admin: 03/15/20 17:10 Dose: 2 mg Documented by: Melatonin (Melatonin) 9 mg PO BEDTIME [facility] Last Admin: 03/16/20 22:12 Dose: 9 mg Documented by: Metoprolol Tartrate (Lopressor) 25 mg PO Q12H [facility] Last Admin: 03/17/20 08:41 Dose: 25 mg Documented by: Polyethylene Glycol (Miralax) 17 gm PO DAILY PRN PRN Reason: Constipation Propafenone HCl (Rythmol) 225 mg PO DAILY [facility] Last Admin: 03/17/20 08:41 Dose: 225 mg Documented by: Simvastatin (Zocor) 20 mg PO BEDTIME [facility] Last Admin: 03/16/20 22:13 Dose: 20 mg Documented by: Sodium Chloride (Saline Flush) 10 ml FLUSH ASDIRECTED PRN PRN Reason: Keep Vein Open Discontinued Medications Furosemide (Lasix) 20 mg IVPUSH NOW ONE Stop: 03/14/20 16:55 Last Admin: 03/14/20 17:15 Dose: 20 mg Documented by: Hydrochlorothiazide (Hydrochlorothiazide) 25 mg PO DAILY [facility] Sodium Chloride (Normal Saline) 1,000 mls @ 100 mls/hr IV ASDIRECTED [facility] Last Admin: 03/14/20 04:00 Dose: 100 mls/hr Documented by: Piperacillin Sod/Tazobactam (Sod 3.375 gm/ Sodium Chloride) 50 mls @ 100 mls/hr IV Q6H [facility] Last Admin: 03/14/20 05:59 Dose: 100 mls/hr Documented by: Doxycycline Hyclate 100 mg/ (Sodium Chloride) 100 mls @ 100 mls/hr IV Q12H [facility] Last Admin: 03/15/20 08:13 Dose: 100 mls/hr Documented by: Piperacillin/Tazobactam/ (Dextrose 3.375 gm/ Premix) 50 mls @ 100 mls/hr IV Q6H [facility] Last Admin: 03/15/20 12:39 Dose: 100 mls/hr Documented by: Metoprolol Tartrate (Lopressor) 12.5 mg PO Q12H [facility] Last Admin: 03/14/20 06:01 Dose: 12.5 mg Documented by: Potassium Chloride (Klor-Con M20) 40 meq PO ONETIME ONE Stop: 03/13/20 16:56 Last Admin: 03/13/20 17:44 Dose: 40 meq Documented by: Potassium Chloride (Klor-Con M20) 40 meq PO ONETIME ONE Stop: 03/14/20 09:01 Last Admin: 03/14/20 10:03 Dose: 40 meq Documented by: - Exam Quality Assessment: Supplemental Oxygen General: Alert, Cooperative, No Acute Distress Lungs: Normal Respiratory Effort GI/Abdominal Exam: Soft, No Distention Extremities: No Pedal Edema Skin: Warm, Dry Psy/Mental Status: Alert, Normal Affect Sepsis Event Note - Evaluation Sepsis Screening Result: No Definite Risk - Focused Exam Vital Signs: Vital Signs Temp Pulse Pulse Resp BP BP Pulse Ox 03/17/20 12:08 35.4 C L 96 16 108/62 92 L 03/17/20 08:41 82 147/84 H 03/17/20 08:40 147/84 H 03/17/20 07:30 35.8 C L 88 16 147/84 H 93 L 03/17/20 02:54 35.8 C L 74 18 129/77 92 L - Problem List Review Problem List Initiated/Reviewed/Updated: Yes - Plan Plan:: ASSESSMENT AND PLAN COVID-19 pneumonia-I suspect his fevers are related to residual infection. He is still hypoxic but otherwise improving. Strength steadily improving. He is now greater than 12 days out from his diagnosis. He has been afebrile for greater than 48 hours with a significant improvement in his symptoms. After today he will no longer need isolation for his Covid infection. -Dexamethasone 6 mg x 5 days -Symptomatic management GENERALIZED WEAKNESS-likely secondary to recent Covid infection. -Physical therapy -Patient and prefer home care with physical therapy rather than subacute rehab ATRIAL FIBRILLATION-rate control has been good. -Increase metoprolol 25 mg p.o. 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 There is no formal diagnosis but he appears to have compatible memory issues. -Outpatient follow-up -No driving ESSENTIAL HYPERTENSION-blood pressure well controlled. MAINTENANCE ISSUES - DVT prophylaxis -apixaban - GI prophylaxis -not indicated - Nutrition -regular DISPOSITION -I would anticipate discharge to home with home care. We did recommend subacute rehab but the patient does not wish to go to the [facility] for rehab. His is in agreement that he will be able to come home with home care. Antonio Washington MD
[2020-03-17] MEDS: Dexamethasone 2 MG Tab PO SCH (15:40)
[2020-03-17] MEDS: Simvastatin 20 MG Tab PO SCH (20:28)
[2020-03-17] MEDS: Melatonin 3 MG Tab PO SCH (20:28)
[2020-03-18] MEDS: Lactobacillus Rhamnosus GG (Probiotic) Cap PO SCH ×2 (08:31→20:30)
[2020-03-18] MEDS: Metoprolol Tartrate 25 MG Tab PO SCH ×2 (08:31→20:30)
[2020-03-18] MEDS: Lisinopril 20 MG Tab PO SCH (08:31)
[2020-03-18] MEDS: Apixaban 5 MG Tab PO SCH ×2 (08:31→20:30)
[2020-03-18] MEDS: Ferrous Sulfate 325 MG Tab PO SCH (08:31)
[2020-03-18] MEDS: Aspirin 81 MG Tab.EC PO SCH (08:32)
--- NOTE | 2020-03-18 10:47 | PCM.PN ---
- General Info Date of Service: 03/18/20 Subjective Update: No acute events overnight. No fevers. Patient feels well. No shortness of breath or nausea. Strength steadily improving. Appetite has been good. Functional Status: Reports: Pain Controlled, Tolerating Diet - Review of Systems General: Denies: Fever - Patient Data Vitals - Most Recent: Last Vital Signs Temp 35.4 C L 03/18/20 08:21 Pulse 82 03/18/20 08:32 Resp 16 03/18/20 08:21 BP 140/77 03/18/20 08:31 Pulse Ox 90 L 03/18/20 08:21 Weight - Most Recent: 98.3 kg I&O - Last 24 Hours: Intake & Output 03/17/20 03/18/20 03/18/20 22:59 06:59 14:59 Intake Total 300 Output Total 600 1400 Balance -600 -1100 Brock Results Last 24 Hours: Microbiology 03/13/20 17:00 Aerobic Blood Culture - Preliminary Blood - Arm, Right NO GROWTH AFTER 4 DAYS Anaerobic Blood Culture - Preliminary NO GROWTH AFTER 4 DAYS 03/13/20 17:10 Aerobic Blood Culture - Preliminary Blood - Arm, Right NO GROWTH AFTER 4 DAYS Anaerobic Blood Culture - Preliminary NO GROWTH AFTER 4 DAYS Med Orders - Current: Current Medications Acetaminophen (Tylenol) 650 mg PO Q4H PRN PRN Reason: Pain (Mild 1-3)/fever Last Admin: 03/14/20 16:11 Dose: 650 mg Documented by: Apixaban (Eliquis) 5 mg PO BID [facility] Last Admin: 03/18/20 08:31 Dose: 5 mg Documented by: Aspirin (Halfprin) 81 mg PO DAILY [facility] Last Admin: 03/18/20 08:32 Dose: 81 mg Documented by: Dexamethasone (Dexamethasone) 6 mg PO Q24H [facility] Last Admin: 03/17/20 15:40 Dose: 6 mg Documented by: Ferrous Sulfate (Ferrous Sulfate) 325 mg PO DAILY [facility] Last Admin: 03/18/20 08:31 Dose: 325 mg Documented by: Lactobacillus Rhamnosus (Culturelle) 1 cap PO BID [facility] Last Admin: 03/18/20 08:31 Dose: 1 cap Documented by: Lisinopril (Prinivil) 20 mg PO DAILY [facility] Last Admin: 03/18/20 08:31 Dose: 20 mg Documented by: Loperamide HCl (Imodium) 2 mg PO Q4H PRN PRN Reason: Diarrhea Last Admin: 03/15/20 17:10 Dose: 2 mg Documented by: Melatonin (Melatonin) 9 mg PO BEDTIME [facility] Last Admin: 03/17/20 20:28 Dose: 9 mg Documented by: Metoprolol Tartrate (Lopressor) 25 mg PO Q12H [facility] Last Admin: 03/18/20 08:31 Dose: 25 mg Documented by: Polyethylene Glycol (Miralax) 17 gm PO DAILY PRN PRN Reason: Constipation Propafenone HCl (Rythmol) 225 mg PO DAILY [facility] Last Admin: 03/18/20 08:32 Dose: 225 mg Documented by: Simvastatin (Zocor) 20 mg PO BEDTIME [facility] Last Admin: 03/17/20 20:28 Dose: 20 mg Documented by: Sodium Chloride (Saline Flush) 10 ml FLUSH ASDIRECTED PRN PRN Reason: Keep Vein Open Discontinued Medications Furosemide (Lasix) 20 mg IVPUSH NOW ONE Stop: 03/14/20 16:55 Last Admin: 03/14/20 17:15 Dose: 20 mg Documented by: Hydrochlorothiazide (Hydrochlorothiazide) 25 mg PO DAILY [facility] Sodium Chloride (Normal Saline) 1,000 mls @ 100 mls/hr IV ASDIRECTED [facility] Last Admin: 03/14/20 04:00 Dose: 100 mls/hr Documented by: Piperacillin Sod/Tazobactam (Sod 3.375 gm/ Sodium Chloride) 50 mls @ 100 mls/hr IV Q6H [facility] Last Admin: 03/14/20 05:59 Dose: 100 mls/hr Documented by: Doxycycline Hyclate 100 mg/ (Sodium Chloride) 100 mls @ 100 mls/hr IV Q12H [facility] Last Admin: 03/15/20 08:13 Dose: 100 mls/hr Documented by: Piperacillin/Tazobactam/ (Dextrose 3.375 gm/ Premix) 50 mls @ 100 mls/hr IV Q6H [facility] Last Admin: 03/15/20 12:39 Dose: 100 mls/hr Documented by: Metoprolol Tartrate (Lopressor) 12.5 mg PO Q12H [facility] Last Admin: 03/14/20 06:01 Dose: 12.5 mg Documented by: Potassium Chloride (Klor-Con M20) 40 meq PO ONETIME ONE Stop: 12/12/20 16:56 Last Admin: 03/13/20 17:44 Dose: 40 meq Documented by: Potassium Chloride (Klor-Con M20) 40 meq PO ONETIME ONE Stop: 03/14/20 09:01 Last Admin: 03/14/20 10:03 Dose: 40 meq Documented by: - Exam Quality Assessment: No: Supplemental Oxygen General: Alert, Cooperative, No Acute Distress Lungs: Normal Respiratory Effort Cardiovascular: Regular Rate GI/Abdominal Exam: Soft, No Distention Psy/Mental Status: Alert, Normal Affect Sepsis Event Note - Evaluation Sepsis Screening Result: No Definite Risk - Focused Exam Vital Signs: Vital Signs Temp Pulse Pulse Resp BP BP Pulse Ox 03/18/20 08:32 82 03/18/20 08:31 82 140/77 03/18/20 08:21 35.4 C L 72 16 140/77 90 L 03/18/20 02:44 34.8 C L 82 16 151/107 H 92 L 03/17/20 23:37 35.1 C L 76 16 150/87 H 91 L - Problem List Review Problem List Initiated/Reviewed/Updated: Yes - Plan Plan:: ASSESSMENT AND PLAN COVID-19 pneumonia-I suspect his fevers were related to residual infection. He is no longer hypoxic. He is now 13 days out from his diagnosis. He has been afebrile for greater than 48 hours with a significant improvement in his symptoms. No longer needs isolation for his Covid infection. -Dexamethasone 6 mg x 4 more days -Symptomatic management GENERALIZED WEAKNESS-likely secondary to recent Covid infection. Strength st eadily improving. -Physical therapy -Patient and prefer home care with physical therapy rather than subacute rehab ATRIAL FIBRILLATION-rate control has been good. -Increase metoprolol 25 mg p.o. 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 There is no formal diagnosis but he appears to have compatible memory issues. -Outpatient follow-up -No driving ESSENTIAL HYPERTENSION-blood pressure well controlled. MAINTENANCE ISSUES - DVT prophylaxis -apixaban - GI prophylaxis -not indicated - Nutrition -regular DISPOSITION -I would anticipate discharge to home with home care. We did recommend subacute rehab but the patient [facility] not [facility]. His is in agreement that he will be able to come home with home care. Plan is for him to go home tomorrow when his nephew is available to bring him home. Antonio Washington MD
[2020-03-18] MEDS: Dexamethasone 2 MG Tab PO SCH (15:21)
[2020-03-18] MEDS: Melatonin 3 MG Tab PO SCH (20:30)
[2020-03-18] MEDS: Simvastatin 20 MG Tab PO SCH (20:31)
[2020-03-19 07:27] VITALS: PULSE 79
[2020-03-19] MEDS: Ferrous Sulfate 325 MG Tab PO SCH (08:29)
[2020-03-19] MEDS: Lisinopril 20 MG Tab PO SCH (08:29)
[2020-03-19] MEDS: Lactobacillus Rhamnosus GG (Probiotic) Cap PO SCH (08:29)
[2020-03-19] MEDS: Metoprolol Tartrate 25 MG Tab PO SCH (08:29)
[2020-03-19] MEDS: Apixaban 5 MG Tab PO SCH (08:30)
[2020-03-19] MEDS: Aspirin 81 MG Tab.EC PO SCH (08:30)
[2020-03-19 10:30] VITALS: BP 109/65
--- NOTE | 2020-03-19 10:52 | PCM.DCSUM1 ---
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 He was admitted with concern that he may have a bacterial infection with fever and weakness. Diagnosis: Stroke: No - Discharge Data Discharge Date: 03/19/20 Discharge Disposition: Home, W Home Health Agency 06 Condition: Good - Referral to Home Health Date of Face to Face Encounter: 03/19/20 Reason for Homebound Status: Acute on chronic weakness and dyspnea Primary Care Physician: Jake Reyes NP Skilled Need: Physical therapy - Discharge Diagnosis/Problem(s) (1) Pneumonia due to COVID-19 virus SNOMED Code(s): 997106344053868909 ICD Code: U07.1 - COVID-19; J12.89 - OTHER VIRAL PNEUMONIA Status: Acute Current Visit: Yes (2) Acute respiratory failure due to COVID-19 SNOMED Code(s): 455596138 ICD Code: U07.1 - COVID-19; J96.00 - ACUTE RESPIRATORY FAILURE, UNSP W HYPOXIA OR HYPERCAPNIA Status: Acute Current Visit: Yes (3) Weakness generalized SNOMED Code(s): 65890389 ICD Code: R53.1 - WEAKNESS Status: Acute Current Visit: Yes (4) History of atrial fibrillation SNOMED Code(s): 255545827 ICD Code: Z86.79 - PERSONAL HISTORY OF OTHER DISEASES OF THE CIRCULATORY SYSTEM Status: Chronic Current Visit: No - Patient Summary/Data Consults: Consultations 03/13/20 16:26 PT Evaluation and Treatment [CONS] Routine Please Evaluate and Treat. PT Reason for Consult: Weakness This query below is only for informational purposes and is not editable. - Patient Instructions Diet: Heart Healthy Diet Activity: As Tolerated Driving: Do Not Drive (until your follow up Jake Reyes ) Showering/Bathing: May Shower Notify Provider of: Fever Other/Special Instructions: 1. You were in the hospital for management of fevers and weakness that I suspect were related to residual difficulties related to th e COVID-19 infection. We did not find any evidence for bacterial infection. Your condition has been improving after steroids were restarted. I do recommend additional steroids after hospital discharge. Please take dexamethasone 6 mg once daily about 3 PM for 3 doses with your first dose outside of the hospital due this afternoon. You may resume your usual activity as tolerated. I encourage you to remain active to avoid a further decline in your strength. 2. During the hospital stay we noted that your heart rate was fast with your atrial fibrillation. The atrial fibrillation has persisted for several weeks. We did increase your metoprolol to 25 mg twice daily and this has achieved good rate control. Given the duration of your atrial fibrillation your risk for stroke is high and we recommend that you start taking apixaban (Eliquis) 5 mg twice daily. This medication will help to reduce your risk of stroke and blood clot. 3. Stop taking amlodipine but otherwise continue your previously prescribed home medications. 4. No driving at least until your follow up with Jake Reyes - Discharge Plan *PRESCRIPTION DRUG MONITORING PROGRAM REVIEWED*: Not Applicable *COPY OF PRESCRIPTION DRUG MONITORING REPORT IN PATIENT TYLER: Not Applicable Prescriptions/Med Rec: dexAMETHasone [Dexamethasone] 6 mg PO Q24H #9 tablet Apixaban [Eliquis] 5 mg PO BID #60 tablet Metoprolol Tartrate [Lopressor] 25 mg PO BID #60 tablet Home Medications: Home Meds Aspirin [Adult Low Dose Aspirin EC] 81 mg PO DAILY 02/17/13 [History] Lisinopril/Hydrochlorothiazide [Lisinopril-Hctz 20-25 mg Tab] 1 tab PO DAILY 02/17/13 [History] Propafenone [Rythmol] 225 mg PO DAILY 02/17/13 [History] Simvastatin [Zocor] 20 mg PO DAILY 02/17/13 [History] Ferrous Sulfate [Feosol] 325 mg PO DAILY 03/05/20 [History] Multivit-Min/FA/Lycopen/Lutein [Centrum Silver Men Tablet] 1 each PO DAILY 03/05/20 [History] Enoxaparin [Lovenox] 40 mg SUBCUT DAILY #7 syringe 03/10/20 [Rx] Apixaban [Eliquis] 5 mg PO BID #60 tablet 03/19/20 [Rx] Metoprolol Tartrate [Lopressor] 25 mg PO BID #60 tablet 03/19/20 [Rx] dexAMETHasone [Dexamethasone] 6 mg PO Q24H #9 tablet 03/19/20 [Rx] Oxygen Therapy Mode: Room Air Patient Handouts: Metoprolol tablets, Atrial Fibrillation, [id number] Referrals: Jake Reyes NP [Primary Care Provider] - 03/29/20 1:00 pm (Please arrive 15 minutes early to register for your appointment.) - Discharge Summary/Plan Comment DC Time >30 min.: Yes (40-home care ) - Patient Data Vitals - Most Recent: Last Vital Signs Temp 35.3 C L 03/19/20 10:28 Pulse 79 03/19/20 08:29 Resp 16 03/19/20 10:28 BP 109/65 03/19/20 10:28 Pulse Ox 90 L 03/19/20 10:28 Weight - Most Recent: 98.3 kg I&O - Last 24 hours: Intake & Output 03/18/20 03/19/20 03/19/20 22:59 06:59 14:59 Intake Total 300 480 Output Total 275 700 300 Balance -275 -400 180 PETE Results - Last 24 hrs: Microbiology 03/13/20 17:00 Aerobic Blood Culture - Final Blood - Arm, Right NO GROWTH AFTER 5 DAYS Anaerobic Blood Culture - Final NO GROWTH AFTER 5 DAYS 03/13/20 17:10 Aerobic Blood Culture - Final Blood - Arm, Right NO GROWTH AFTER 5 DAYS Anaerobic Blood Culture - Final NO GROWTH AFTER 5 DAYS Med Orders - Current: Current Medications Acetaminophen (Tylenol) 650 mg PO Q4H PRN PRN Reason: Pain (Mild 1-3)/fever Last Admin: 03/14/20 16:11 Dose: 650 mg Documented by: Apixaban (Eliquis) 5 mg PO BID [facility] Last Admin: 03/19/20 08:30 Dose: 5 mg Documented by: Aspirin (Halfprin) 81 mg PO DAILY [facility] Last Admin: 03/19/20 08:30 Dose: 81 mg Documented by: Dexamethasone (Dexamethasone) 6 mg PO Q24H [facility] Last Admin: 03/18/20 15:21 Dose: 6 mg Documented by: Ferrous Sulfate (Ferrous Sulfate) 325 mg PO DAILY [facility] Last Admin: 03/19/20 08:29 Dose: 325 mg Documented by: Lactobacillus Rhamnosus (Culturelle) 1 cap PO BID [facility] Last Admin: 03/19/20 08:29 Dose: 1 cap Documented by: Lisinopril (Prinivil) 20 mg PO DAILY [facility] Last Admin: 03/19/20 08:29 Dose: 20 mg Documented by: Loperamide HCl (Imodium) 2 mg PO Q4H PRN PRN Reason: Diarrhea Last Admin: 03/15/20 17:10 Dose: 2 mg Documented by: Melatonin (Melatonin) 9 mg PO BEDTIME [facility] Last Admin: 03/18/20 20:30 Dose: 9 mg Documented by: Metoprolol Tartrate (Lopressor) 25 mg PO Q12H [facility] Last Admin: 03/19/20 08:29 Dose: 25 mg Documented by: Polyethylene Glycol (Miralax) 17 gm PO DAILY PRN PRN Reason: Constipation Propafenone HCl (Rythmol) 225 mg PO DAILY [facility] Last Admin: 03/19/20 08:28 Dose: 225 mg Documented by: Simvastatin (Zocor) 20 mg PO BEDTIME [facility] Last Admin: 03/18/20 20:31 Dose: 20 mg Documented by: Sodium Chloride (Saline Flush) 10 ml FLUSH ASDIRECTED PRN PRN Reason: Keep Vein Open Discontinued Medications Furosemide (Lasix) 20 mg IVPUSH NOW ONE Stop: 03/14/20 16:55 Last Admin: 03/14/20 17:15 Dose: 20 mg Documented by: Hydrochlorothiazide (Hydrochlorothiazide) 25 mg PO DAILY [facility] Sodium Chloride (Normal Saline) 1,000 mls @ 100 mls/hr IV ASDIRECTED [facility] Last Admin: 03/14/20 04:00 Dose: 100 mls/hr Documented by: Piperacillin Sod/Tazobactam (Sod 3.375 gm/ Sodium Chloride) 50 mls @ 100 mls/hr IV Q6H [facility] Last Admin: 03/14/20 05:59 Dose: 100 mls/hr Documented by: Doxycycline Hyclate 100 mg/ (Sodium Chloride) 100 mls @ 100 mls/hr IV Q12H [facility] Last Admin: 03/15/20 08:13 Dose: 100 mls/hr Documented by: Piperacillin/Tazobactam/ (Dextrose 3.375 gm/ Premix) 50 mls @ 100 mls/hr IV Q6H [facility] Last Admin: 03/15/20 12:39 Dose: 100 mls/hr Documented by: Metoprolol Tartrate (Lopressor) 12.5 mg PO Q12H [facility] Last Admin: 03/14/20 06:01 Dose: 12.5 mg Documented by: Potassium Chloride (Klor-Con M20) 40 meq PO ONETIME ONE Stop: 03/13/20 16:56 Last Admin: 03/13/20 17:44 Dose: 40 meq Documented by: Potassium Chloride (Klor-Con M20) 40 meq PO ONETIME ONE Stop: 03/14/20 09:01 Last Admin: 03/14/20 10:03 Dose: 40 meq Documented by:
== END 2020-03-19 13:00 | disposition home health service (06) | DRG 193 ==
LOC: JP.ED 11:33 → JP.MS 15:17 → OBSVTOIN 03-14 10:31 → JP.MS 03-18 17:17
PROVIDERS: ADMIT Hospitalist; ATTEND Internal Medicine
DX: R53.1 Weakness (principal); J12.89 Other viral pneumonia; J96.01 Acute respiratory failure with hypoxia; U07.1 COVID-19; I48.0 Paroxysmal atrial fibrillation; I48.91 Unspecified atrial fibrillation; I10 Essential (primary) hypertension; H35.30 Unspecified macular degeneration; I25.10 Atherosclerotic heart disease of native coronary artery without angina pectoris; I11.0 Hypertensive heart disease with heart failure; Z96.659 Presence of unspecified artificial knee joint; G30.9 Alzheimer's disease, unspecified; F02.80 Dementia in other diseases classified elsewhere, unspecified severity, without behavioral disturbance, psychotic disturbance, mood disturbance, and anxiety; E78.00 Pure hypercholesterolemia, unspecified; Z88.8 Allergy status to other drugs, medicaments and biological substances; I25.2 Old myocardial infarction; G47.30 Sleep apnea, unspecified; Z98.49 Cataract extraction status, unspecified eye; Z68.39 Body mass index [BMI] 39.0-39.9, adult; E66.9 Obesity, unspecified; D64.9 Anemia, unspecified; Z88.6 Allergy status to analgesic agent; Z91.030 Bee allergy status; Z79.82 Long term (current) use of aspirin; Z79.899 Other long term (current) drug therapy
CPT/HCPCS: 36415 ×2; 51702; 71045; 73030 ×2; 76700; 80048; 80053; 80076; 81001; 82550; 84145; 85025 ×2; 87040 ×2; 87493; 93005; 93010; 96365; 96366; 96367; 96376; 99285 ×2; A9270 ×12; G0378 ×3; J2543 ×3; J3490 ×2; J7030 ×2; 85027; 97110-GP; 97162-GP; 97530-GP; 99219; 99231; 99232; 99239; J1940; J8540

== ENCOUNTER 2020-05-25 12:41 | Emergency (ER) | payer MEDICARE, OTHER ==
[2020-05-25] MEDS ORDERED: Sodium Chloride 0.9% 10 ML Syringe FLUSH PRN (12:54)
[2020-05-25] MEDS ORDERED: Albuterol 0.083% 2.5 MG/3 ML Neb Soln NEB ONE (13:09)
--- NOTE | 2020-05-25 13:12 | EDM.PDOC ---
ED HPI GENERAL MEDICAL PROBLEM - General Chief Complaint: General Stated Complaint: MEDICAL Time Seen by Provider: 05/25/20 12:55 Source of Information: Reports: Patient, Old Records, RN History Limitations: Reports: No Limitations - History of Present Illness INITIAL COMMENTS - FREE TEXT/NARRATIVE: 89 yo male presents with mild SOB and weakness. He thinks the weakness has been coming on for about a month and he did mention it at his last clinic appt. He denies CP, fever, change in bowel or urination. He has been eating and drinking normally. He has noticed some wheezing that is new. Today too weak to get out of his chair so EMS was called. Onset: Gradual Duration: Week(s): (~4), Getting Worse Location: Reports: Generalized Quality: Reports: Other (no pain) Severity: Moderate (weakness) Improves with: Reports: None Worsens with: Reports: Other (time) Context: Reports: Other (See HPI) Associated Symptoms: Reports: Shortness of Breath, Weakness. Denies: Chest Pain, Cough, Fever/Chills, Nausea/Vomiting, Rash Treatments LENS GRINDER ROUGH: Reports: Other (see below) (none) - Related Data Allergies Allergy/AdvReac Type Severity Reaction Status Date / Time venom-honey bee Allergy Severe Anaphylactic Verified 05/25/20 12:45 [bee venom (honey bee)] Shock propoxyphene HCl AdvReac Nausea and Verified 05/25/20 12:45 [From Darvon] Vomiting Home Meds: Home Meds Propafenone [Rythmol] 225 mg PO DAILY 02/17/13 [History] Simvastatin [Zocor] 20 mg PO DAILY 02/17/13 [History] Ferrous Sulfate [Feosol] 325 mg PO DAILY 03/05/20 [History] Multivit-Min/FA/Lycopen/Lutein [Centrum Silver Men Tablet] 1 each PO DAILY 03/05/20 [History] Apixaban [Eliquis] 5 mg PO BID #60 tablet 03/19/20 [Rx] Lactobacillus Rhamnosus GG [Culturelle] 1 cap PO BID #60 cap 04/09/20 [Rx] Past Medical History HEENT History: Reports: Cataract, Macular Degeneration Cardiovascular History: Reports: Afib, CAD, High Cholesterol, Hypertension, NC, Other (See Below) Other Cardiovascular History: Aortic valve sclerosis Respiratory History: Reports: Sleep Apnea Other Respiratory History: c-pap Genitourinary History: Reports: Other (See Below) Other Genitourinary History: nocturia Musculoskeletal History: Reports: Other (See Below) Other Musculoskeletal History: carpal tunnel syndrome Neurological History: Reports: Other (See Below) Endocrine/Metabolic History: Reports: Obesity/BMI 30+, Other (See Below) Other Endocrine/Metabolic History: impaired fasting glucose Hematologic History: Reports: Anemia Oncologic (Cancer) History: Reports: Other (See Below) 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 - Infectious Disease History Infectious Disease History: Reports: Chicken Pox, Measles, Mumps, Novel Coronavirus, Pertussis (Whooping Cough), Shingles - Past Surgical History HEENT Surgical History: Reports: Cataract Surgery, Oral Surgery, Other (See Below) Other HEENT Surgeries/Procedures: dentures GI Surgical History: Reports: Hernia Repair/Other Musculoskeletal Surgical History: Reports: Knee Replacement Other Musculoskeletal Surgeries/Procedures:: right and left Social & Family History - Tobacco Use Tobacco Use Status *Q: Former Tobacco User Used Tobacco, but Quit: Yes Month/Year Tobacco Last Used: 45 years ago - Caffeine Use Caffeine Use: Reports: Coffee - Recreational Drug Use Recreational Drug Use: No ED ROS GENERAL - Review of Systems Review Of Systems: See Below Constitutional: Reports: No Symptoms HEENT: Reports: No Symptoms Respiratory: Reports: Shortness of Breath, Wheezing. Denies: Pleuritic Chest Pain, Cough, Sputum, Hemoptysis Cardiovascular: Reports: No Symptoms Endocrine: Reports: No Symptoms GI/Abdominal: Reports: No Symptoms : Reports: No Symptoms Musculoskeletal: Reports: No Symptoms Skin: Reports: No Symptoms Neurological: Reports: Weakness (generalized) Psychiatric: Reports: No Symptoms ED EXAM, GENERAL - Physical Exam Exam: See Below Exam Limited By: No Limitations General Appearance: Alert, WD/WN, No Apparent Distress Eye Exam: Bilateral Eye: Normal Inspection Ears: Normal External Exam, Normal Canal, Hearing Grossly Normal Ear Exam: Bilateral Ear: Auricle Normal, Canal Normal Nose: Normal Inspection, No Blood Throat/Mouth: Normal Inspection, Normal Lips, Normal Oropharynx, Normal Voice, No Airway Compromise Head: Atraumatic, Normocephalic Neck: Normal Inspection Respiratory/Chest: No Respiratory Distress, No Accessory Muscle Use, Wheezing (faint). No: Rales, Rhonchi Cardiovascular: Tachycardia, Irregularly Irregular GI/Abdominal: Normal Bowel Sounds, Soft, Non-Tender, No Distention Back Exam: Normal Inspection. No: CVA Tenderness (R), CVA Tenderness (L) Extremities: Normal Inspection, Normal Range of Motion, Non-Tender, No Pedal Edema Neurological: Alert, Oriented, CN II-XII Intact, Normal Cognition, No Motor/Sensory Deficits Psychiatric: Normal Affect, Normal Mood Skin Exam: Warm, Dry, Intact, Normal Color, No Rash Course - Vital Signs Last Recorded V/S: Last Vital Signs Temp 36.4 C 05/25/20 12:49 Pulse 105 H 05/25/20 14:59 Resp 20 05/25/20 14:59 BP 168/100 H 05/25/20 14:59 Pulse Ox 95 05/25/20 12:49 - Orders/Labs/Meds Orders: Active Orders 24 hr Category Date Time Status Cardiac Monitoring [RC] .As Directed Care 05/25/20 13:00 Active RT Aerosol Therapy [RC] ASDIRECTED Care 05/25/20 13:09 Active Sodium Chloride 0.9% [Saline Flush] Med 05/25/20 12:54 Active 10 ml FLUSH ASDIRECTED PRN Saline Lock Insert [OM.PC] Routine Oth 05/25/20 12:54 Ordered Medication Orders Sodium Chloride (Saline Flush) 10 ml FLUSH ASDIRECTED PRN PRN Reason: Keep Vein Open Meds: Medications Generic Name Dose Route Start Last Admin Trade Name Freq PRN Reason Stop Dose Admin Sodium Chloride 10 ml 05/25/20 12:54 Saline Flush FLUSH ASDIRECTED PRN Keep Vein Open Discontinued Medications Generic Name Dose Route Start Last Admin Trade Name Freq PRN Reason Stop Dose Admin Albuterol 2.5 mg 05/25/20 13:09 05/25/20 14:29 Proventil Neb Soln NEB 05/25/20 13:10 2.5 mg ONETIME ONE Administration Departure - Departure Time of Disposition: 15:30 Disposition: Home, Self-Care 01 Condition: Fair Clinical Impression: Weakness - Discharge Information *PRESCRIPTION DRUG MONITORING PROGRAM REVIEWED*: Not Applicable *COPY OF PRESCRIPTION DRUG MONITORING REPORT IN PATIENT TYLER: Not Applicable Referrals: PCP,None [Primary Care Provider] - Forms: ED Department Discharge Additional Instructions: Home care will start services tomorrow in your home. F/U with your provider as needed. Sepsis Event Note (ED) - Evaluation Sepsis Screening Result: No Definite Risk - Focused Exam Vital Signs: Vital Signs Temp Pulse Resp BP Pulse Ox 05/25/20 14:59 105 H 20 168/100 H 05/25/20 14:29 112 H 05/25/20 12:49 36.4 C 114 H 16 164/100 H 95 - My Orders Last 24 Hours: My Active Orders 05/25/20 12:54 Sodium Chloride 0.9% [Saline Flush] 10 ml FLUSH ASDIRECTED PRN Saline Lock Insert [OM.PC] Routine 05/25/20 13:00 Cardiac Monitoring [RC] .As Directed 05/25/20 13:09 RT Aerosol Therapy [RC] ASDIRECTED - Assessment/Plan Last 24 Hours: My Active Orders 05/25/20 12:54 Sodium Chloride 0.9% [Saline Flush] 10 ml FLUSH ASDIRECTED PRN Saline Lock Insert [OM.PC] Routine 05/25/20 13:00 Cardiac Monitoring [RC] .As Directed 05/25/20 13:09 RT Aerosol Therapy [RC] ASDIRECTED
[2020-05-25 15:00] VITALS: BP 168/100; PULSE 105
== END 2020-05-25 17:10 | disposition home or self-care (01) ==
LOC: JP.ED 12:41
DX: R53.1 Weakness (principal); R00.0 Tachycardia, unspecified; R06.02 Shortness of breath; R06.2 Wheezing; I48.91 Unspecified atrial fibrillation; I25.10 Atherosclerotic heart disease of native coronary artery without angina pectoris; E78.00 Pure hypercholesterolemia, unspecified; I10 Essential (primary) hypertension; I25.2 Old myocardial infarction; D64.9 Anemia, unspecified; E66.9 Obesity, unspecified; Z68.28 Body mass index [BMI] 28.0-28.9, adult; Z87.891 Personal history of nicotine dependence; Z79.01 Long term (current) use of anticoagulants; Z79.899 Other long term (current) drug therapy; Z91.030 Bee allergy status; Z88.8 Allergy status to other drugs, medicaments and biological substances
CPT/HCPCS: 94640; 99284; 99285-25

== ENCOUNTER 2020-05-30 16:17 | Inpatient (IN) | payer MEDICARE, OTHER ==
[2020-05-30] MEDS ORDERED: Sodium Chloride 0.9% 10 ML Syringe FLUSH PRN (17:23)
--- NOTE | 2020-05-30 17:26 | EDM.PDOC ---
ED HPI GENERAL MEDICAL PROBLEM - General Chief Complaint: General Stated Complaint: FALL MEDICAL VIA [facility] Time Seen by Provider: 05/30/20 17:17 Source of Information: Reports: Patient, Old Records, RN Notes Reviewed History Limitations: Reports: No Limitations - History of Present Illness INITIAL COMMENTS - FREE TEXT/NARRATIVE: 89-year-old gentleman presents emergency department day via EMS services, chief complaint of continued weakness he had another fall again today he has been in the emergency department most recently 4 days ago complaint of fall he is on blood thinner of Eliquis he does have significant bruising on the left side of his chest left shoulder from the fall at that time home care was set up to try and help with some physical therapy and medications and such however he continues to struggle and has continued to decline. He states he just so weak it is hard for him to get up he feels short of breath no chest pain no nausea vomiting Left Arm Pain Score (Numeric/FACES): 9 - Related Data Allergies Allergy/AdvReac Type Severity Reaction Status Date / Time venom-honey bee Allergy Severe Anaphylactic Verified 05/30/20 16:44 [bee venom (honey bee)] Shock propoxyphene HCl AdvReac Nausea and Verified 05/30/20 16:44 [From Darvon] Vomiting Home Meds: Home Meds Propafenone [Rythmol] 225 mg PO DAILY 02/17/13 [History] Simvastatin [Zocor] 20 mg PO DAILY 02/17/13 [History] Ferrous Sulfate [Feosol] 325 mg PO DAILY 03/05/20 [History] Multivit-Min/FA/Lycopen/Lutein [Centrum Silver Men Tablet] 1 each PO DAILY 03/05/20 [History] Apixaban [Eliquis] 5 mg PO BID #60 tablet 03/19/20 [Rx] Areds 2 1 cap PO DAILY 05/30/20 [History] Furosemide [Lasix] 20 mg PO DAILY 05/30/20 [History] Past Medical History HEENT History: Reports: Cataract, Macular Degeneration Cardiovascular History: Reports: Afib, CAD, High Cholesterol, Hypertension, [place], Other (See Below) Other Cardiovascular History: Aortic valve sclerosis Respiratory History: Reports: Sleep Apnea Other Respiratory History: c-pap Genitourinary History: Reports: Other (See Below) Other Genitourinary History: nocturia Musculoskeletal History: Reports: Other (See Below) Other Musculoskeletal History: carpal tunnel syndrome Endocrine/Metabolic History: Reports: Obesity/BMI 30+, Other (See Below) Other Endocrine/Metabolic History: impaired fasting glucose Hematologic History: Reports: Anemia Oncologic (Cancer) History: Reports: Other (See Below) 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 - Infectious Disease History Infectious Disease History: Reports: Chicken Pox, Measles, Mumps, Novel Coronavirus, Pertussis (Whooping Cough), Shingles - Past Surgical History HEENT Surgical History: Reports: Cataract Surgery, Oral Surgery, Other (See Below) Other HEENT Surgeries/Procedures: dentures GI Surgical History: Reports: Hernia Repair/Other Musculoskeletal Surgical History: Reports: Knee Replacement Other Musculoskeletal Surgeries/Procedures:: right and left Social & Family History - Tobacco Use Tobacco Use Status *Q: Former Tobacco User Used Tobacco, but Quit: Yes Month/Year Tobacco Last Used: 40 years ago - Caffeine Use Caffeine Use: Reports: Coffee - Recreational Drug Use Recreational Drug Use: No ED ROS GENERAL - Review of Systems Review Of Systems: See Below Constitutional: Reports: Weakness, Fatigue HEENT: Reports: No Symptoms Respiratory: Reports: Shortness of Breath Cardiovascular: Reports: Dyspnea on Exertion. Denies: Chest Pain GI/Abdominal: Reports: No Symptoms : Reports: No Symptoms ED EXAM, GENERAL - Physical Exam Exam: See Below Exam Limited By: No Limitations General Appearance: Alert, WD/WN, No Apparent Distress Neck: Non-Tender, Other (JVD +2) Respiratory/Chest: No Accessory Muscle Use, Decreased Breath Sounds, Rales, Wheezing Cardiovascular: Tachycardia GI/Abdominal: Soft, Non-Tender Back Exam: Normal Inspection, Full Range of Motion. No: CVA Tenderness (R), CVA Tenderness (L) Extremities: Pedal Edema #1 Interpretation EKG Date: 05/30/20 Rhythm: A-Fib [place]: Normal P-Wave: Absent QRS: Normal ST-T: Normal QT: Normal Comparison: No Change Course - Vital Signs Last Recorded V/S: Last Vital Signs Temp 97.3 F 05/30/20 16:36 Pulse 103 H 05/30/20 17:05 Resp 22 H 05/30/20 17:05 BP 101/66 05/30/20 17:05 Pulse Ox 94 L 05/30/20 17:05 - Orders/Labs/Meds Orders: Active Orders 24 hr Category Date Time Status EKG Documentation Completion [RC] ASDIRECTED Care 05/30/20 17:24 Active Peripheral IV Care [RC] . DIRECTED Care 05/30/20 17:24 Active Chest 1V Frontal [CR] Urgent Exams 05/30/20 17:23 Taken Sodium Chloride 0.9% [Saline Flush] Med 05/30/20 17:23 Active 10 ml FLUSH ASDIRECTED PRN Sodium Chloride 0.9% [Saline Flush] Med 05/30/20 17:23 Active 10 ml FLUSH ASDIRECTED PRN Peripheral IV Insertion Adult [OM.PC] Urgent Oth 05/30/20 17:23 Ordered EKG 12 Lead [EK] Urgent Ther 05/30/20 17:23 Ordered Medication Orders Sodium Chloride (Saline Flush) 10 ml FLUSH ASDIRECTED PRN PRN Reason: Keep Vein Open Last Admin: 05/30/20 17:45 Dose: 10 ml Documented by: Admin: 05/30/20 17:44 Dose: 10 ml Documented by: PREILOR Sodium Chloride (Saline Flush) 10 ml FLUSH ASDIRECTED PRN PRN Reason: Keep Vein Open Last Admin: 05/30/20 17:45 Dose: 10 ml Documented by: PREILOR Labs: Laboratory Tests 05/30/20 05/30/20 05/30/20 Range/Units 17:45 17:45 17:45 WBC 7.1 (4.5-11.0) K/uL RBC 3.60 L (4.30-5.90) M/uL Hgb 10.1 L (12.0-15.0) g/dL Hct 34.0 L (40.0-54.0) % MCV 94 (80-98) fL MCH 28 (27-31) pg MCHC 30 L (32-36) % Plt Count 226 (150-400) K/uL Neut % (Auto) 77 H (36-66) % Lymph % (Auto) 9 L (24-44) % [place] % (Auto) 12 H (2-6) % Eos % (Auto) 1 L (2-4) % Baso % (Auto) 0 (0-1) % Sodium 140 (140-148) mmol/L Potassium 3.7 (3.6-5.2) mmol/L Chloride 104 (100-108) mmol/L Carbon Dioxide 28 (21-32) mmol/L Anion Gap 7.9 (5.0-14.0) mmol/L BUN 20 H (7-18) mg/dL Creatinine 1.2 (0.8-1.3) mg/dL Est Cr Clr Drug Dosing 41.96 mL/min Estimated GFR (MDRD) 57 L (>60) Glucose 107 H (74-106) mg/dL Lactic Acid (0.4-2.0) mmol/L Calcium 9.3 (8.5-10.1) mg/dL Total Bilirubin 0.7 (0.2-1.0) mg/dL AST 31 (15-37) U/L ALT 21 (12-78) U/L Alkaline Phosphatase 70 (46-116) U/L Troponin I 0.055 (0.000-0.056) ng/mL NT-Pro-B Natriuret Pep 5850 H (5-450) pg/mL Total Protein 5.9 L (6.4-8.2) g/dL Albumin 2.6 L (3.4-5.0) g/dL Globulin 3.3 (2.3-3.5) g/dL Albumin/Globulin Ratio 0.8 L (1.2-2.2) 05/30/20 Range/Units 17:45 WBC (4.5-11.0) K/uL RBC (4.30-5.90) M/uL Hgb (12.0-15.0) g/dL Hct (40.0-54.0) % MCV (80-98) fL MCH (27-31) pg MCHC (32-36) % Plt Count (150-400) K/uL Neut % (Auto) (36-66) % Lymph % (Auto) (24-44) % [place] % (Auto) (2-6) % Eos % (Auto) (2-4) % Baso % (Auto) (0-1) % Sodium (140-148) mmol/L Potassium (3.6-5.2) mmol/L Chloride (100-108) mmol/L Carbon Dioxide (21-32) mmol/L Anion Gap (5.0-14.0) mmol/L BUN (7-18) mg/dL Creatinine (0.8-1.3) mg/dL Est Cr Clr Drug Dosing mL/min Estimated GFR (MDRD) (>60) Glucose (74-106) mg/dL Lactic Acid 2.2 H (0.4-2.0) mmol/L Calcium (8.5-10.1) mg/dL Total Bilirubin (0.2-1.0) mg/dL AST (15-37) U/L ALT (12-78) U/L Alkaline Phosphatase (46-116) U/L Troponin I (0.000-0.056) ng/mL NT-Pro-B Natriuret Pep (5-450) pg/mL Total Protein (6.4-8.2) g/dL Albumin (3.4-5.0) g/dL Globulin (2.3-3.5) g/dL Albumin/Globulin Ratio (1.2-2.2) Meds: Medications Generic Name Dose Route Start Last Admin Trade Name Freq PRN Reason Stop Dose Admin Sodium Chloride 10 ml 05/30/20 17:23 05/30/20 17:45 Saline Flush FLUSH 10 ml ASDIRECTED PRN Administration Keep Vein Open Sodium Chloride 10 ml 05/30/20 17:23 05/30/20 17:45 Saline Flush FLUSH 10 ml ASDIRECTED PRN Administration Keep Vein Open Departure - Departure Time of Disposition: 18:33 Disposition: Admitted As Inpatient 68 Condition: Poor Clinical Impression: CHF exacerbation Qualifiers: Heart failure type: unspecified Qualified Code(s): I50.9 - Heart failure, unspecified - Discharge Information Referrals: PCP,None [Primary Care Provider] - Forms: ED Department Discharge Sepsis Event Note (ED) - Evaluation Sepsis Screening Result: No Definite Risk - Focused Exam Vital Signs: Vital Signs Temp Pulse Resp BP Pulse Ox 05/30/20 17:05 103 H 22 H 101/66 94 L 05/30/20 16:36 97.3 F 119 H 16 100/66 95 - My Orders Last 24 Hours: My Active Orders 05/30/20 17:23 Chest 1V Frontal [CR] Urgent Sodium Chloride 0.9% [Saline Flush] 10 ml FLUSH ASDIRECTED PRN Sodium Chloride 0.9% [Saline Flush] 10 ml FLUSH ASDIRECTED PRN Peripheral IV Insertion Adult [OM.PC] Urgent EKG 12 Lead [EK] Urgent 05/30/20 17:24 EKG Documentation Completion [RC] ASDIRECTED Peripheral IV Care [RC] . DIRECTED - Assessment/Plan Last 24 Hours: My Active Orders 05/30/20 17:23 Chest 1V Frontal [CR] Urgent Sodium Chloride 0.9% [Saline Flush] 10 ml FLUSH ASDIRECTED PRN Sodium Chloride 0.9% [Saline Flush] 10 ml FLUSH ASDIRECTED PRN Peripheral IV Insertion Adult [OM.PC] Urgent EKG 12 Lead [EK] Urgent 05/30/20 17:24 EKG Documentation Completion [RC] ASDIRECTED Peripheral IV Care [RC] . DIRECTED Plan: assessment CHF exacerbation Plan: admit Dr. Washington
[2020-05-30] MEDS: Sodium Chloride 0.9% 10 ML Syringe FLUSH PRN ×2 (17:44→17:45)
[2020-05-30] MEDS ORDERED: Furosemide 40 MG/4 ML VIAL IVPUSH ONE (18:35)
--- NOTE | 2020-05-30 18:50 | PCM.HP.2 ---
H&P History of Present Illness - General Date of Service: 05/30/20 Admit Problem/Dx: Admission Diagnosis/Problem Admission Diagnosis/Problem CHF, Congestive heart failure Source of Information: Patient, Provider History Limitations: Reports: No Limitations - History of Present Illness Initial Comments - Free Text/Narative: CC: It's a leg thing HPI: Arnie presents to the emergency room with progressive weakness as well as swelling of both lower extremities and his left upper extremity. He reports a slow but steady progression over the past few weeks. He is to the point now that he is having difficulty getting up out of the chair. He has had a couple of falls at home. He reports dyspnea with even minimal exertion at this time. He does not have orthopnea. He has not had any chest pain. He does have a loose but nonproductive cough. He is not aware of any fevers. Appetite has been good but energy has been quite low. He has bruises on his left shoulder and forearm but he is not sure how they got there. No abdominal pain or nausea but he does have mild chronic diarrhea. No difficulty with urination. No obvious sick contacts. He was set up with home care to get some assistance but unfortunately has declined. Work-up in the emergency room revealed congestive heart failure with significant lower extremity edema as well as left upper extremity edema. Chest x-ray shows bilateral pleural effusions. He does not have a history of congestive heart fa ilure. He will be admitted for further work-up and management. Left Arm Pain Score (Numeric/FACES): 9 - Related Data Allergies/Adverse Reactions: Allergies Allergy/AdvReac Type Severity Reaction Status Date / Time venom-honey bee Allergy Severe Anaphylactic Verified 05/30/20 16:44 [bee venom (honey bee)] Shock propoxyphene HCl AdvReac Nausea and Verified 05/30/20 16:44 [From Darvon] Vomiting Home Medications: Home Meds Propafenone [Rythmol] 225 mg PO DAILY 02/17/13 [History] Simvastatin [Zocor] 20 mg PO DAILY 02/17/13 [History] Ferrous Sulfate [Feosol] 325 mg PO DAILY 03/05/20 [History] Multivit-Min/FA/Lycopen/Lutein [Centrum Silver Men Tablet] 1 each PO DAILY 03/05/20 [History] Apixaban [Eliquis] 5 mg PO BID #60 tablet 03/19/20 [Rx] Areds 2 1 cap PO DAILY 05/30/20 [History] Furosemide [Lasix] 20 mg PO DAILY 05/30/20 [History] Past Medical History HEENT History: Reports: Cataract, Macular Degeneration Cardiovascular History: Reports: Afib, CAD, High Cholesterol, Hypertension, [place], Other (See Below) Other Cardiovascular History: Aortic valve sclerosis Respiratory History: Reports: Sleep Apnea Other Respiratory History: c-pap Genitourinary History: Reports: Other (See Below) Other Genitourinary History: nocturia Musculoskeletal History: Reports: Other (See Below) Other Musculoskeletal History: carpal tunnel syndrome Neurological History: Reports: Other (See Below) Endocrine/Metabolic History: Reports: Obesity/BMI 30+, Other (See Below) Other Endocrine/Metabolic History: impaired fasting glucose Hematologic History: Reports: Anemia Oncologic (Cancer) History: Reports: Other (See Below) 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 - Infectious Disease History Infectious Disease History: Reports: Chicken Pox, Measles, Mumps, Novel [place] virus, Pertussis (Whooping Cough), Shingles - Past Surgical History HEENT Surgical History: Reports: Cataract Surgery, Oral Surgery, Other (See Below) Other HEENT Surgeries/Procedures: dentures GI Surgical History: Reports: Hernia Repair/Other Musculoskeletal Surgical History: Reports: Knee Replacement Other Musculoskeletal Surgeries/Procedures:: right and left Social & Family History - Tobacco Use Tobacco Use Status *Q: Former Tobacco User Used Tobacco, but Quit: Yes Month/Year Tobacco Last Used: 40 years ago - Caffeine Use Caffeine Use: Reports: Coffee - Recreational Drug Use Recreational Drug Use: No H&P Review of Systems - Review of Systems: Review Of Systems: See Below Free Text/Narrative: A complete 12 point review of systems was obtained. Pertinent positives and negatives are noted in the history of present illness. All other systems were reviewed and were negative except as noted. Exam - Exam Exam: See Below - Vital Signs Vital Signs: Last Vital Signs Temp 36.3 C 05/30/20 16:36 Pulse 122 H 05/30/20 18:34 Resp 16 05/30/20 18:34 BP 121/78 05/30/20 18:34 Pulse Ox 96 05/30/20 18:34 Weight: 95.254 kg - Exam Quality Assessment: No: Supplemental Oxygen General: Alert, Cooperative. No: Mild Distress HEENT: Conjunctiva Clear, Mucosa Moist & [place]. No: Scleral Icterus Neck: Supple, Trachea Midline, JVD. No: Lymphadenopathy Lungs: Normal Respiratory Effort, Crackles (Both bases). No: Wheezing Cardiovascular: Irregular Rhythm, Tachycardia, Systolic Murmur, Gallop/S3 GI/Abdominal Exam: Normal Bowel Sounds, Soft, Non-Tender, No Distention, No Mass Back Exam: Normal Inspection. No: Full Range of Motion Extremities: Pedal Edema (Massive pitting edema all the way up to the waist bilaterally). No: Increased Warmth Peripheral Pulses: 0: Dorsalis Pedis (L) (Too much swelling), Dorsalis Pedis (R) (Too much swelling) Skin: Warm, Dry Neuro Extensive - Mental Status: Alert, Nl Response to Commands Neuro Extensive - Motor, Sensory, Reflexes: No: Dysarthria, Abnormal Motor, Tremor Psychiatric: Alert, Normal Affect - Patient Data Lab Results Last 24 hrs: Laboratory Results - last 24 hr 05/30/20 05/30/20 05/30/20 Range/Units 17:45 17:45 17:45 WBC 7.1 (4.5-11.0) K/uL RBC 3.60 L (4.30-5.90) M/uL Hgb 10.1 L (12.0-15.0) g/dL Hct 34.0 L (40.0-54.0) % MCV 94 (80-98) fL MCH 28 (27-31) pg MCHC 30 L (32-36) % Plt Count 226 (150-400) K/uL Neut % (Auto) 77 H (36-66) % Lymph % (Auto) 9 L (24-44) % [place] % (Auto) 12 H (2-6) % Eos % (Auto) 1 L (2-4) % Baso % (Auto) 0 (0-1) % Sodium 140 (140-148) mmol/L Potassium 3.7 (3.6-5.2) mmol/L Chloride 104 (100-108) mmol/L Carbon Dioxide 28 (21-32) mmol/L Anion Gap 7.9 (5.0-14.0) mmol/L BUN 20 H (7-18) mg/dL Creatinine 1.2 (0.8-1.3) mg/dL Est Cr Clr Drug Dosing 41.96 mL/min Estimated GFR (MDRD) 57 L (>60) Glucose 107 H (74-106) mg/dL Lactic Acid (0.4-2.0) mmol/L Calcium 9.3 (8.5-10.1) mg/dL Total Bilirubin 0.7 (0.2-1.0) mg/dL AST 31 (15-37) U/L ALT 21 (12-78) U/L Alkaline Phosphatase 70 (46-116) U/L Troponin I 0.055 (0.000-0.056) ng/mL NT-Pro-B Natriuret Pep 5850 H (5-450) pg/mL Total Protein 5.9 L (6.4-8.2) g/dL Albumin 2.6 L (3.4-5.0) g/dL Globulin 3.3 (2.3-3.5) g/dL Albumin/Globulin Ratio 0.8 L (1.2-2.2) 05/30/20 Range/Units 17:45 WBC (4.5-11.0) K/uL RBC (4.30-5.90) M/uL Hgb (12.0-15.0) g/dL Hct (40.0-54.0) % MCV (80-98) fL MCH (27-31) pg MCHC (32-36) % Plt Count (150-400) K/uL Neut % (Auto) (36-66) % Lymph % (Auto) (24-44) % [place] % (Auto) (2-6) % Eos % (Auto) (2-4) % Baso % (Auto) (0-1) % Sodium (140-148) mmol/L Potassium (3.6-5.2) mmol/L Chloride (100-108) mmol/L Carbon Dioxide (21-32) mmol/L Anion Gap (5.0-14.0) mmol/L BUN (7-18) mg/dL Creatinine (0.8-1.3) mg/dL Est Cr Clr Drug Dosing mL/min Estimated GFR (MDRD) (>60) Glucose (74-106) mg/dL Lactic Acid 2.2 H (0.4-2.0) mmol/L Calcium (8.5-10.1) mg/dL Total Bilirubin (0.2-1.0) mg/dL AST (15-37) U/L ALT (12-78) U/L Alkaline Phosphatase (46-116) U/L Troponin I (0.000-0.056) ng/mL NT-Pro-B Natriuret Pep (5-450) pg/mL Total Protein (6.4-8.2) g/dL Albumin (3.4-5.0) g/dL Globulin (2.3-3.5) g/dL Albumin/Globulin Ratio (1.2-2.2) Result Diagrams: 05/30/20 17:45 05/30/20 17:45 Imaging Impressions Last 24 hrs: Chest x-ray-image personally reviewed-there is evidence for bilateral pleural effusions left slightly greater than right. There is some cephalization of vessels and interstitial prominence consistent with congestive heart failure. No obvious mass or infiltrate. #1 Interpretation EKG Date: 05/30/20 Rhythm: A-Fib Rate (Beats/Min): 105 [place]: Normal P-Wave: Variable QRS: Normal ST-T: Normal QT: Normal Comparison: No Change EKG Interpretation Comments: I did personally review this EKG image Sepsis Event Note - Evaluation Sepsis Screening Result: No Definite Risk - Focused Exam Vital Signs: Vital Signs Temp Pulse Resp BP Pulse Ox 05/30/20 18:34 122 H 16 121/78 96 05/30/20 17:05 103 H 22 H 101/66 94 L 05/30/20 16:36 36.3 C 119 H 16 100/66 95 *Q Meaningful Use (ADM) - VTE Risk Assess *Q Each Risk Factor Represents 1 Point: Swollen Legs, Current, Obesity ( BMI > 25 kg/m2), Congestive heart failure (CHF) Total Score 1 Point Risk Factors: 3 Each Risk Factor Represents 2 Points: None Total Score 2 Point Risk Factors: 0 Each Risk Factor Represents 3 Points: Age 75 Years or Greater Total Score 3 Point Risk Factors: 3 Each Risk Factor Represents 5 Points: None Total Score 5 Point Risk Factors: 0 Venous Thromboembolism Risk Factor Score *Q: 6 - Problem List (1) CHF exacerbation SNOMED Code(s): 586593189, 76563729280652 ICD Code: I50.9 - HEART FAILURE, UNSPECIFIED Status: Acute Current Visit: Yes Qualifiers: Heart failure type: unspecified Qualified Code(s): I50.9 - Heart failure, unspecified (2) Atrial fibrillation with RVR SNOMED Code(s): 961724715364925 ICD Code: I48.91 - UNSPECIFIED ATRIAL FIBRILLATION Status: Acute Current Visit: No (3) Anemia SNOMED Code(s): 993884324 ICD Code: D64.9 - ANEMIA, UNSPECIFIED Status: Acute Current Visit: Yes Qualifiers: Anemia type: unspecified type Qualified Code(s): D64.9 - Anemia, unspecified (4) Weakness generalized SNOMED Code(s): 17262300 ICD Code: R53.1 - WEAKNESS Status: Acute Current Visit: No Problem List Initiated/Reviewed/Updated: Yes Orders Last 24hrs: Active Orders 24 hr Category Date Time Status Patient Status Manage Transfer [TRANSFER] Routine ADT 05/30/20 18:37 Active EKG Documentation Completion [RC] ASDIRECTED Care 05/30/20 17:24 Active Insert Gan Catheter [Insert Urinary Catheter] [OM.PC] Care 05/30/20 18:45 Ordered Q24H Peripheral IV Care [RC] . DIRECTED Care 05/30/20 17:24 Active Urinary Catheter Assessment [RC] ASDIRECTED Care 05/30/20 18:35 Active Chest 1V Frontal [CR] Urgent Exams 05/30/20 17:23 Taken Sodium Chloride 0.9% [Saline Flush] Med 05/30/20 17:23 Active 10 ml FLUSH ASDIRECTED PRN Sodium Chloride 0.9% [Saline Flush] Med 05/30/20 17:23 Active 10 ml FLUSH ASDIRECTED PRN Peripheral IV Insertion Adult [OM.PC] Urgent Oth 05/30/20 17:23 Ordered Resuscitation Status Routine Resus Stat 05/30/20 18:39 Ordered EKG 12 Lead [EK] Urgent Ther 05/30/20 17:23 Ordered Medication Orders Sodium Chloride (Saline Flush) 10 ml FLUSH ASDIRECTED PRN PRN Reason: Keep Vein Open Last Admin: 05/30/20 17:45 Dose: 10 ml Documented by: Admin: 05/30/20 17:44 Dose: 10 ml Documented by: PREILOR Sodium Chloride (Saline Flush) 10 ml FLUSH ASDIRECTED PRN PRN Reason: Keep Vein Open Last Admin: 05/30/20 17:45 Dose: 10 ml Documented by: PREILOR Assessment/Plan Comment:: ASSESSMENT AND PLAN - Subacute exacerbation of congestive heart failure-several weeks of progressive swelling and increasing dyspnea. No history of heart failure. Ejection fraction unknown. Massive lower extremity edema as well as left upper extremity edema. Recent venous ultrasound of the left arm did not show DVT. Mildly tachycardic with his atrial fibrillation. -Furosemide 40 mg IV x1 now and in the morning -Gan catheter for strict intake and output monitoring -Wrap both lower legs with Pan wraps to help with mechanical fluid removal -Daily weights -Echocardiogram in the morning Atrial fibrillation with rapid ventricular response-mild tachycardia at this time in the setting of congestive heart failure. -Start low-dose beta-donya for rate control -Continue apixaban Anemia-hemoglobin of 12 with borderline macrocytic index. He does have some bruising on his left arm but probably not enough to explain the anemia. -Repeat hemoglobin in the morning -B12 level Generalized weakness-probably result of the progressive congestive heart failure with possible contribution from the atrial fibrillation. -Physical therapy in the morning -Additional management as above Maintenance issues - - DVT prophylaxis -apixaban - GI prophylaxis -not indicated - Nutrition -low-sodium - Gan catheter -placed for strict intake and output monitoring CODE STATUS -full code Admission justification -this patient will be admitted for inpatient services and is medically appropriate meeting medical necessity for inpatient admission as outlined in my documentation. I reasonably expect the patient will require inpatient services that span a period time over 2 midnights. I reasonably expect this patient to be discharged or transferred within 96 hours [facility]. Disposition -I would anticipate discharge home with home care versus possibly subacute rehab Primary care physician - Antonio Washington M.D. - Mortality Measure Prognosis:: Good
[2020-05-30] MEDS ORDERED: Acetaminophen 325 MG Tab PO PRN (19:38)
[2020-05-30] MEDS ORDERED: Ondansetron 4 MG Tab.DIS PO PRN (19:38)
[2020-05-30] MEDS ORDERED: Potassium Chloride 20 MEQ Tab.ER PO ONE (19:38)
[2020-05-30] MEDS ORDERED: LORazepam 2 MG/ML SDV IVPUSH PRN (19:38)
[2020-05-30] MEDS ORDERED: Albuterol 0.083% 2.5 MG/3 ML Neb Soln NEB PRN (19:38)
[2020-05-30] MEDS ORDERED: Ondansetron 4 MG/2 ML SDV IV PRN (19:38)
[2020-05-30] MEDS ORDERED: Apixaban 2.5 MG Tab ONE (21:07)
[2020-05-30] MEDS: Metoprolol Tartrate 25 MG Tab PO SCH (21:19)
[2020-05-30] MEDS: Apixaban 5 MG Tab PO SCH (21:19)
[2020-05-30] MEDS: Simvastatin 20 MG Tab PO SCH (21:21)
[2020-05-30] MEDS: Melatonin 3 MG Tab PO SCH (21:21)
[2020-05-31] MEDS: Apixaban 5 MG Tab PO SCH ×2 (08:44→20:29)
[2020-05-31] MEDS: Metoprolol Tartrate 25 MG Tab PO SCH ×2 (08:44→20:30)
[2020-05-31] MEDS: Potassium Chloride 20 MEQ Tab.ER PO SCH (08:44)
[2020-05-31] MEDS: Multivitamins with Iron/Calcium/Folic Acid/Minerals Tab PO SCH (08:46)
[2020-05-31] MEDS ORDERED: Furosemide 40 MG/4 ML VIAL IVPUSH SCH (09:00)
--- NOTE | 2020-05-31 10:01 | CR ---
CHEST: Portable 05/30/2020 at 6:06 PM CLINICAL HISTORY:SOB COMPARISON:03/13/2020 FINDINGS: Heart is enlarged. Pulmonary vascular is mildly cephalized. There are moderate bilateral pleural effusions. There is diffuse interstitial infiltrate or edema. There are atherosclerotic changes in the aorta. IMPRESSION: Cardiomegaly with vascular congestion and interstitial edema most consistent with CHF. Moderate bilateral pleural effusions
--- NOTE | 2020-05-31 12:43 | PCM.PN ---
- General Info Date of Service: 05/31/20 Subjective Update: Mr. Infante has felt improved since admission yesterday with less shortness of breath and less peripheral edema. Strength is modestly improved and appetite remains good. Functional Status: Reports: Tolerating Diet, Urinating - Review of Systems General: Reports: Weakness, Fatigue. Denies: Fever, Chills Pulmonary: Reports: Shortness of Breath. Denies: Pleuritic Chest Pain, Cough, Sputum, Hemoptysis, Wheezing Cardiovascular: Reports: Dyspnea on Exertion, Edema. Denies: Chest Pain, Palpitations, Orthopnea, PND, Lightheadedness Gastrointestinal: Reports: No Symptoms - Patient Data Vitals - Most Recent: Last Vital Signs Temp 96.9 F 05/31/20 11:04 Pulse 84 05/31/20 11:04 Resp 18 05/31/20 11:04 BP 100/49 L 05/31/20 11:04 Pulse Ox 97 05/31/20 11:04 Weight - Most Recent: 232 lb 5.875 oz I&O - Last 24 Hours: Intake & Output 05/30/20 05/31/20 05/31/20 22:59 06:59 14:59 Intake Total 480 579 Output Total 8293 544 8260 Balance -6688 -686 -070 Lab Results Last 24 Hours: Laboratory Results - last 24 hr 05/30/20 05/30/20 05/30/20 Range/Units 17:45 17:45 17:45 WBC 7.1 (4.5-11.0) K/uL RBC 3.60 L (4.30-5.90) M/uL Hgb 10.1 L (12.0-15.0) g/dL Hct 34.0 L (40.0-54.0) % MCV 94 (80-98) fL MCH 28 (27-31) pg MCHC 30 L (32-36) % Plt Count 226 (150-400) K/uL Neut % (Auto) 77 H (36-66) % Lymph % (Auto) 9 L (24-44) % [place] % (Auto) 12 H (2-6) % Eos % (Auto) 1 L (2-4) % Baso % (Auto) 0 (0-1) % Sodium 140 (140-148) mmol/L Potassium 3.7 (3.6-5.2) mmol/L Chloride 104 (100-108) mmol/L Carbon Dioxide 28 (21-32) mmol/L Anion Gap 7.9 (5.0-14.0) mmol/L BUN 20 H (7-18) mg/dL Creatinine 1.2 (0.8-1.3) mg/dL Est Cr Clr Drug Dosing 41.96 mL/min Estimated GFR (MDRD) 57 L (>60) Glucose 107 H (74-106) mg/dL Lactic Acid (0.4-2.0) mmol/L Calcium 9.3 (8.5-10.1) mg/dL Total Bilirubin 0.7 (0.2-1.0) mg/dL AST 31 (15-37) U/L ALT 21 (12-78) U/L Alkaline Phosphatase 70 (46-116) U/L Troponin I 0.055 (0.000-0.056) ng/mL NT-Pro-B Natriuret Pep 5850 H (5-450) pg/mL Total Protein 5.9 L (6.4-8.2) g/dL Albumin 2.6 L (3.4-5.0) g/dL Globulin 3.3 (2.3-3.5) g/dL Albumin/Globulin Ratio 0.8 L (1.2-2.2) Urine Color (YELLOW) Urine Appearance (CLEAR) Urine pH (5.0-8.0) Ur Specific [place] (1.008-1.030) Urine Protein (NEGATIVE) mg/dL Urine Glucose (UA) (NEGATIVE) mg/dL Urine Ketones (NEGATIVE) mg/dL Urine Occult Blood (NEGATIVE) Urine Nitrite (NEGATIVE) Urine Bilirubin (NEGATIVE) Urine Urobilinogen (0.2-1.0) EU/dL Ur Leukocyte Esterase (NEGATIVE) Urine RBC (0-5) Urine WBC (0-5) Ur Epithelial Cells Amorphous Sediment Urine Bacteria Urine Mucus 05/30/20 05/30/20 05/31/20 Range/Units 17:45 19:48 04:25 WBC 6.9 (4.5-11.0) K/uL RBC 3.41 L (4.30-5.90) M/uL Hgb 9.4 L (12.0-15.0) g/dL Hct 32.5 L (40.0-54.0) % MCV 95 (80-98) fL MCH 28 (27-31) pg MCHC 29 L (32-36) % Plt Count 197 (150-400) K/uL Neut % (Auto) (36-66) % Lymph % (Auto) (24-44) % [place] % (Auto) (2-6) % Eos % (Auto) (2-4) % Baso % (Auto) (0-1) % Sodium (140-148) mmol/L Potassium (3.6-5.2) mmol/L Chloride (100-108) mmol/L Carbon Dioxide (21-32) mmol/L Anion Gap (5.0-14.0) mmol/L BUN (7-18) mg/dL Creatinine (0.8-1.3) mg/dL Est Cr Clr Drug Dosing mL/min Estimated GFR (MDRD) (>60) Glucose (74-106) mg/dL Lactic Acid 2.2 H (0.4-2.0) mmol/L Calcium (8.5-10.1) mg/dL Total Bilirubin (0.2-1.0) mg/dL AST (15-37) U/L ALT (12-78) U/L Alkaline Phosphatase (46-116) U/L Troponin I (0.000-0.056) ng/mL NT-Pro-B Natriuret Pep (5-450) pg/mL Total Protein (6.4-8.2) g/dL Albumin (3.4-5.0) g/dL Globulin (2.3-3.5) g/dL Albumin/Globulin Ratio (1.2-2.2) Urine Color Yellow (YELLOW) Urine Appearance Clear (CLEAR) Urine pH 7.0 (5.0-8.0) Ur Specific [place] 1.020 (1.008-1.030) Urine Protein Negative (NEGATIVE) mg/dL Urine Glucose (UA) Negative (NEGATIVE) mg/dL Urine Ketones Negative (NEGATIVE) mg/dL Urine Occult Blood Trace-intact H (NEGATIVE) Urine Nitrite Negative (NEGATIVE) Urine Bilirubin Negative (NEGATIVE) Urine Urobilinogen 0.2 (0.2-1.0) EU/dL Ur Leukocyte Esterase Negative (NEGATIVE) Urine RBC 5-10 H (0-5) Urine WBC Not seen (0-5) Ur Epithelial Cells Not seen Amorphous Sediment Not seen Urine Bacteria Rare Urine Mucus Not seen 05/31/20 Range/Units 04:25 WBC (4.5-11.0) K/uL RBC (4.30-5.90) M/uL Hgb (12.0-15.0) g/dL Hct (40.0-54.0) % MCV (80-98) fL MCH (27-31) pg MCHC (32-36) % Plt Count (150-400) K/uL Neut % (Auto) (36-66) % Lymph % (Auto) (24-44) % [place] % (Auto) (2-6) % Eos % (Auto) (2-4) % Baso % (Auto) (0-1) % Sodium 143 (140-148) mmol/L Potassium 3.8 (3.6-5.2) mmol/L Chloride 107 (100-108) mmol/L Carbon Dioxide 32 (21-32) mmol/L Anion Gap 4.4 L (5.0-14.0) mmol/L BUN 22 H (7-18) mg/dL Creatinine 1.2 (0.8-1.3) mg/dL Est Cr Clr Drug Dosing 41.96 mL/min Estimated GFR (MDRD) 57 L (>60) Glucose 105 (74-106) mg/dL Lactic Acid (0.4-2.0) mmol/L Calcium 9.4 (8.5-10.1) mg/dL Total Bilirubin (0.2-1.0) mg/dL AST (15-37) U/L ALT (12-78) U/L Alkaline Phosphatase (46-116) U/L Troponin I (0.000-0.056) ng/mL NT-Pro-B Natriuret Pep (5-450) pg/mL Total Protein (6.4-8.2) g/dL Albumin (3.4-5.0) g/dL Globulin (2.3-3.5) g/dL Albumin/Globulin Ratio (1.2-2.2) Urine Color (YELLOW) Urine Appearance (CLEAR) Urine pH (5.0-8.0) Ur Specific [place] (1.008-1.030) Urine Protein (NEGATIVE) mg/dL Urine Glucose (UA) (NEGATIVE) mg/dL Urine Ketones (NEGATIVE) mg/dL Urine Occult Blood (NEGATIVE) Urine Nitrite (NEGATIVE) Urine Bilirubin (NEGATIVE) Urine Urobilinogen (0.2-1.0) EU/dL Ur Leukocyte Esterase (NEGATIVE) Urine RBC (0-5) Urine WBC (0-5) Ur Epithelial Cells Amorphous Sediment Urine Bacteria Urine Mucus Med Orders - Current: Current Medications Acetaminophen (Tylenol) 650 mg PO Q4H PRN PRN Reason: Pain (Mild 1-3)/fever Albuterol (Proventil Neb Soln) 2.5 mg NEB Q4H PRN PRN Reason: Shortness Of Breath/wheezing Apixaban (Eliquis) 5 mg PO BID [facility] Last Admin: 05/31/20 08:44 Dose: 5 mg Documented by: Furosemide (Lasix) 40 mg IVPUSH NOW ONE Stop: 05/31/20 21:01 Lorazepam (Ativan) 0.5 mg IVPUSH Q4H PRN PRN Reason: Nausea/Vomiting Melatonin (Melatonin) 9 mg PO BEDTIME [facility] Last Admin: 05/30/20 21:21 Dose: 9 mg Documented by: Metoprolol Tartrate (Lopressor) 12.5 mg PO Q12H [facility] Last Admin: 05/31/20 08:44 Dose: 12.5 mg Documented by: Multivitamins/Minerals (Thera M Plus) 1 tab PO DAILY [facility] Last Admin: 05/31/20 08:46 Dose: 1 tab Documented by: Ondansetron HCl (Zofran) 4 mg IV Q6H PRN PRN Reason: Nausea/Vomiting Ondansetron HCl (Zofran Odt) 4 mg PO Q6H PRN PRN Reason: Nausea able to take PO Potassium Chloride (Klor-Con M20) 40 meq PO DAILY [facility] Last Admin: 05/31/20 08:44 Dose: 40 meq Documented by: Propafenone HCl (Rythmol) 225 mg PO DAILY [facility] Last Admin: 05/31/20 08:45 Dose: 225 mg Documented by: Simvastatin (Zocor) 20 mg PO BEDTIME [facility] Last Admin: 05/30/20 21:21 Dose: 20 mg Documented by: Sodium Chloride (Saline Flush) 10 ml FLUSH ASDIRECTED PRN PRN Reason: Keep Vein Open Last Admin: 05/30/20 17:45 Dose: 10 ml Documented by: Discontinued Medications Apixaban (Eliquis) Confirm Administered Dose 5 mg .ROUTE .STK-MED ONE Stop: 05/30/20 21:08 Last Admin: 05/30/20 21:22 Dose: Not Given Documented by: Furosemide (Lasix) 40 mg IVPUSH ONETIME ONE Stop: 05/30/20 18:36 Last Admin: 05/30/20 18:42 Dose: 40 mg Documented by: Furosemide (Lasix) 40 mg IVPUSH DAILY [facility] Stop: 05/31/20 09:01 Last Admin: 05/31/20 08:47 Dose: 40 mg Documented by: Potassium Chloride (Klor-Con M20) 40 meq PO ONETIME ONE Stop: 05/30/20 19:39 Last Admin: 05/30/20 21:18 Dose: 40 meq Documented by: Sodium Chloride (Saline Flush) 10 ml FLUSH ASDIRECTED PRN PRN Reason: Keep Vein Open Last Admin: 05/30/20 17:45 Dose: 10 ml Documented by: - Exam Quality Assessment: Supplemental Oxygen, Urine Catheter, DVT Prophylaxis General: Alert, Oriented, Cooperative, Mild Distress Lungs: Clear to Auscultation, Normal Respiratory Effort, Decreased Breath Sounds Cardiovascular: Regular Rate, Regular Rhythm, No Murmurs GI/Abdominal Exam: Soft, Non-Tender, No Organomegaly, No Distention Extremities: Non-Tender, No Pedal Edema - Patient Data Lab Results Last 24 hrs: Laboratory Results - last 24 hr 05/30/20 05/30/20 05/30/20 Range/Units 17:45 17:45 17:45 WBC 7.1 (4.5-11.0) K/uL RBC 3.60 L (4.30-5.90) M/uL Hgb 10.1 L (12.0-15.0) g/dL Hct 34.0 L (40.0-54.0) % MCV 94 (80-98) fL MCH 28 (27-31) pg MCHC 30 L (32-36) % Plt Count 226 (150-400) K/uL Neut % (Auto) 77 H (36-66) % Lymph % (Auto) 9 L (24-44) % [place] % (Auto) 12 H (2-6) % Eos % (Auto) 1 L (2-4) % Baso % (Auto) 0 (0-1) % Sodium 140 (140-148) mmol/L Potassium 3.7 (3.6-5.2) mmol/L Chloride 104 (100-108) mmol/L Carbon Dioxide 28 (21-32) mmol/L Anion Gap 7.9 (5.0-14.0) mmol/L BUN 20 H (7-18) mg/dL Creatinine 1.2 (0.8-1.3) mg/dL Est Cr Clr Drug Dosing 41.96 mL/min Estimated GFR (MDRD) 57 L (>60) Glucose 107 H (74-106) mg/dL Lactic Acid (0.4-2.0) mmol/L Calcium 9.3 (8.5-10.1) mg/dL Total Bilirubin 0.7 (0.2-1.0) mg/dL AST 31 (15-37) U/L ALT 21 (12-78) U/L Alkaline Phosphatase 70 (46-116) U/L Troponin I 0.055 (0.000-0.056) ng/mL NT-Pro-B Natriuret Pep 5850 H (5-450) pg/mL Total Protein 5.9 L (6.4-8.2) g/dL Albumin 2.6 L (3.4-5.0) g/dL Globulin 3.3 (2.3-3.5) g/dL Albumin/Globulin Ratio 0.8 L (1.2-2.2) Urine Color (YELLOW) Urine Appearance (CLEAR) Urine pH (5.0-8.0) Ur Specific [place] (1.008-1.030) Urine Protein (NEGATIVE) mg/dL Urine Glucose (UA) (NEGATIVE) mg/dL Urine Ketones (NEGATIVE) mg/dL Urine Occult Blood (NEGATIVE) Urine Nitrite (NEGATIVE) Urine Bilirubin (NEGATIVE) Urine Urobilinogen (0.2-1.0) EU/dL Ur Leukocyte Esterase (NEGATIVE) Urine RBC (0-5) Urine WBC (0-5) Ur Epithelial Cells Amorphous Sediment Urine Bacteria Urine Mucus 05/30/20 05/30/20 05/31/20 Range/Units 17:45 19:48 04:25 WBC 6.9 (4.5-11.0) K/uL RBC 3.41 L (4.30-5.90) M/uL Hgb 9.4 L (12.0-15.0) g/dL Hct 32.5 L (40.0-54.0) % MCV 95 (80-98) fL MCH 28 (27-31) pg MCHC 29 L (32-36) % Plt Count 197 (150-400) K/uL Neut % (Auto) (36-66) % Lymph % (Auto) (24-44) % [place] % (Auto) (2-6) % Eos % (Auto) (2-4) % Baso % (Auto) (0-1) % Sodium (140-148) mmol/L Potassium (3.6-5.2) mmol/L Chloride (100-108) mmol/L Carbon Dioxide (21-32) mmol/L Anion Gap (5.0-14.0) mmol/L BUN (7-18) mg/dL Creatinine (0.8-1.3) mg/dL Est Cr Clr Drug Dosing mL/min Estimated GFR (MDRD) (>60) Glucose (74-106) mg/dL Lactic Acid 2.2 H (0.4-2.0) mmol/L Calcium (8.5-10.1) mg/dL Total Bilirubin (0.2-1.0) mg/dL AST (15-37) U/L ALT (12-78) U/L Alkaline Phosphatase (46-116) U/L Troponin I (0.000-0.056) ng/mL NT-Pro-B Natriuret Pep (5-450) pg/mL Total Protein (6.4-8.2) g/dL Albumin (3.4-5.0) g/dL Globulin (2.3-3.5) g/dL Albumin/Globulin Ratio (1.2-2.2) Urine Color Yellow (YELLOW) Urine Appearance Clear (CLEAR) Urine pH 7.0 (5.0-8.0) Ur Specific [place] 1.020 (1.008-1.030) Urine Protein Negative (NEGATIVE) mg/dL Urine Glucose (UA) Negative (NEGATIVE) mg/dL Urine Ketones Negative (NEGATIVE) mg/dL Urine Occult Blood Trace-intact H (NEGATIVE) Urine Nitrite Negative (NEGATIVE) Urine Bilirubin Negative (NEGATIVE) Urine Urobilinogen 0.2 (0.2-1.0) EU/dL Ur Leukocyte Esterase Negative (NEGATIVE) Urine RBC 5-10 H (0-5) Urine WBC Not seen (0-5) Ur Epithelial Cells Not seen Amorphous Sediment Not seen Urine Bacteria Rare Urine Mucus Not seen 05/31/20 Range/Units 04:25 WBC (4.5-11.0) K/uL RBC (4.30-5.90) M/uL Hgb (12.0-15.0) g/dL Hct (40.0-54.0) % MCV (80-98) fL MCH (27-31) pg MCHC (32-36) % Plt Count (150-400) K/uL Neut % (Auto) (36-66) % Lymph % (Auto) (24-44) % [place] % (Auto) (2-6) % Eos % (Auto) (2-4) % Baso % (Auto) (0-1) % Sodium 143 (140-148) mmol/L Potassium 3.8 (3.6-5.2) mmol/L Chloride 107 (100-108) mmol/L Carbon Dioxide 32 (21-32) mmol/L Anion Gap 4.4 L (5.0-14.0) mmol/L BUN 22 H (7-18) mg/dL Creatinine 1.2 (0.8-1.3) mg/dL Est Cr Clr Drug Dosing 41.96 mL/min Estimated GFR (MDRD) 57 L (>60) Glucose 105 (74-106) mg/dL Lactic Acid (0.4-2.0) mmol/L Calcium 9.4 (8.5-10.1) mg/dL Total Bilirubin (0.2-1.0) mg/dL AST (15-37) U/L ALT (12-78) U/L Alkaline Phosphatase (46-116) U/L Troponin I (0.000-0.056) ng/mL NT-Pro-B Natriuret Pep (5-450) pg/mL Total Protein (6.4-8.2) g/dL Albumin (3.4-5.0) g/dL Globulin (2.3-3.5) g/dL Albumin/Globulin Ratio (1.2-2.2) Urine Color (YELLOW) Urine Appearance (CLEAR) Urine pH (5.0-8.0) Ur Specific [place] (1.008-1.030) Urine Protein (NEGATIVE) mg/dL Urine Glucose (UA) (NEGATIVE) mg/dL Urine Ketones (NEGATIVE) mg/dL Urine Occult Blood (NEGATIVE) Urine Nitrite (NEGATIVE) Urine Bilirubin (NEGATIVE) Urine Urobilinogen (0.2-1.0) EU/dL Ur Leukocyte Esterase (NEGATIVE) Urine RBC (0-5) Urine WBC (0-5) Ur Epithelial Cells Amorphous Sediment Urine Bacteria Urine Mucus Result Diagrams: 05/31/20 04:25 05/31/20 04:25 Sepsis Event Note - Evaluation Sepsis Screening Result: No Definite Risk - Focused Exam Vital Signs: Vital Signs Temp Temp Pulse Pulse Resp BP BP 05/31/20 11:04 96.9 F 84 18 100/49 L 05/31/20 08:45 77 05/31/20 08:44 77 125/79 05/31/20 08:03 97.1 F 77 18 125/79 05/31/20 02:40 95.5 F L 86 16 116/65 Pulse Ox 05/31/20 11:04 97 05/31/20 08:45 05/31/20 08:44 05/31/20 08:03 94 L 05/31/20 02:40 95 - Problem List Review Problem List Initiated/Reviewed/Updated: Yes - My Orders Last 24 Hours: My Active Orders 05/31/20 21:00 Furosemide [Lasix] 40 mg IVPUSH NOW ONE 06/01/20 05:00 BASIC METABOLIC PANEL,BMP [CHEM] Timed CBC WITH AUTO DIFF [HEME] Timed MAGNESIUM [CHEM] Timed - Plan Plan:: ASSESSMENT AND PLAN - Subacute exacerbation of congestive heart failure-several weeks of progressive swelling and increasing dyspnea. Preliminary report from echocardiogram shows hyperdynamic left ventricular function, formal report pending -Furosemide 40 mg IV twice today, reassess in a.m. -Gan catheter for strict intake and output monitoring -Wrap both lower legs with Pan wraps to help with mechanical fluid removal -Daily weights Atrial fibrillation with rapid ventricular response-mild tachycardia at this time in the setting of congestive heart failure. -Start low-dose beta-donya for rate control -Continue apixaban Anemia-hemoglobin of 12 with borderline macrocytic index. He does have some bruising on his left arm but probably not enough to explain the anemia. -Repeat hemoglobin in the morning -B12 level Generalized weakness-probably result of the progressive congestive heart failure with possible contribution from the atrial fibrillation. -Physical therapy in the morning -Additional management as above Maintenance issues - - DVT prophylaxis -apixaban - GI prophylaxis -not indicated - Nutrition -low-sodium - Gan catheter -placed for strict intake and output monitoring CODE STATUS -full code Admission justification -this patient will be admitted for inpatient services and is medically appropriate meeting medical necessity for inpatient admission as outlined in my documentation. I reasonably expect the patient will require inpatient services that span a period time over 2 midnights. I reasonably expect this patient to be discharged or transferred within 96 hours after admission to the [facility]. Disposition -I would anticipate discharge home with home care versus possibly subacute rehab Primary care physician -
[2020-05-31] MEDS: Melatonin 3 MG Tab PO SCH (20:29)
[2020-05-31] MEDS: Simvastatin 20 MG Tab PO SCH (20:29)
[2020-05-31] MEDS ORDERED: Furosemide 40 MG/4 ML VIAL IVPUSH ONE (21:00)
[2020-06-01] MEDS: Potassium Chloride 20 MEQ Tab.ER PO SCH (08:40)
[2020-06-01] MEDS: Metoprolol Tartrate 25 MG Tab PO SCH ×2 (08:40→20:22)
[2020-06-01] MEDS: Multivitamins with Iron/Calcium/Folic Acid/Minerals Tab PO SCH (08:41)
[2020-06-01] MEDS: Magnesium Oxide 400 MG Tab PO SCH ×2 (09:10→20:21)
[2020-06-01] MEDS: Magnesium Sulfate/Water 2 GM/50 ML BAG IV SCH ×2 (09:24→15:08)
--- NOTE | 2020-06-01 10:32 | PCM.PN ---
- General Info Date of Service: 06/01/20 Subjective Update: Mr. Infante has unfortunately shown evidence of GI bleed over the last 24 hours. He has not experienced any hemodynamic instability but has had melenic stools an d a drop in his hemoglobin level. He denies any abdominal discomfort and does report that his breathing seems to be stable. Functional Status: Reports: Tolerating Diet - Review of Systems General: Reports: Weakness, Fatigue. Denies: Fever, Chills Pulmonary: Reports: No Symptoms Cardiovascular: Reports: No Symptoms Gastrointestinal: Reports: Melena. Denies: Abdominal Pain, Constipation, Diarrhea, Difficulty Swallowing, Hematochezia, Nausea, Vomiting - Patient Data Vitals - Most Recent: Last Vital Signs Temp 96.7 F L 06/01/20 08:28 Pulse 86 06/01/20 08:41 Resp 20 06/01/20 08:28 BP 117/64 06/01/20 08:40 Pulse Ox 91 L 06/01/20 08:30 Weight - Most Recent: 226 lb 6.636 oz I&O - Last 24 Hours: Intake & Output 05/31/20 06/01/20 06/01/20 22:59 06:59 14:59 Intake Total 1120 650 Output Total 750 2800 Balance -750 -1680 650 Lab Results Last 24 Hours: Laboratory Results - last 24 hr 05/31/20 06/01/20 06/01/20 Range/Units 18:50 05:11 05:11 WBC 6.9 (4.5-11.0) K/uL RBC 3.11 L (4.30-5.90) M/uL Hgb 10.0 L 8.5 L (12.0-15.0) g/dL Hct 29.7 L (40.0-54.0) % MCV 96 (80-98) fL MCH 27 (27-31) pg MCHC 29 L (32-36) % Plt Count 188 (150-400) K/uL Neut % (Auto) 63 (36-66) % Lymph % (Auto) 17 L (24-44) % [place] % (Auto) 18 H (2-6) % Eos % (Auto) 3 (2-4) % Baso % (Auto) 0 (0-1) % Sodium 140 (140-148) mmol/L Potassium 3.1 L (3.6-5.2) mmol/L Chloride 103 (100-108) mmol/L Carbon Dioxide 31 (21-32) mmol/L Anion Gap 9.1 (5.0-14.0) mmol/L BUN 19 H (7-18) mg/dL Creatinine 1.1 (0.8-1.3) mg/dL Est Cr Clr Drug Dosing 45.94 mL/min Estimated GFR (MDRD) > 60 (>60) Glucose 127 H (74-106) mg/dL Calcium 8.9 (8.5-10.1) mg/dL Magnesium 1.5 L (1.8-2.4) mg/dL Brock Results Last 24 Hours: Microbiology 05/31/20 18:45 Stool Occult Blood (BROCK) - Final Stool / Feces Med Orders - Current: Current Medications Acetaminophen (Tylenol) 650 mg PO Q4H PRN PRN Reason: Pain (Mild 1-3)/fever Albuterol (Proventil Neb Soln) 2.5 mg NEB Q4H PRN PRN Reason: Shortness Of Breath/wheezing Bisacodyl (Dulcolax) 10 mg PO ONETIME ONE Stop: 06/01/20 10:22 Bisacodyl (Dulcolax) 10 mg PO ONETIME ONE Stop: 06/01/20 20:01 Magnesium Sulfate (Magnesium Sulfate In Water 2 Gm/50 Ml) 2 gm in 50 mls @ 12.5 mls/hr IV Q6H [facility] Stop: 06/01/20 18:59 Last Admin: 06/01/20 09:24 Dose: 12.5 mls/hr Documented by: Potassium Chloride 20 meq/Lidocaine HCl 2 ml/ Sodium Chloride 112 mls @ 56 ml s/hr IV Q2H [facility] Stop: 06/01/20 13:59 Lorazepam (Ativan) 0.5 mg IVPUSH Q4H PRN PRN Reason: Nausea/Vomiting Magnesium Oxide (Magnesium Oxide) 400 mg PO BID [facility] Last Admin: 06/01/20 09:10 Dose: 400 mg Documented by: Melatonin (Melatonin) 9 mg PO BEDTIME [facility] Last Admin: 05/31/20 20:29 Dose: 9 mg Documented by: Metoprolol Tartrate (Lopressor) 12.5 mg PO Q12H [facility] Last Admin: 06/01/20 08:40 Dose: 12.5 mg Documented by: Multivitamins/Minerals (Thera M Plus) 1 tab PO DAILY [facility] Last Admin: 06/01/20 08:41 Dose: 1 tab Documented by: Ondansetron HCl (Zofran) 4 mg IV Q6H PRN PRN Reason: Nausea/Vomiting Ondansetron HCl (Zofran Odt) 4 mg PO Q6H PRN PRN Reason: Nausea able to take PO Polyethylene Glycol (Miralax) 238 gm PO ONETIME ONE Stop: 06/01/20 17:01 Potassium Chloride (Klor-Con M20) 40 meq PO DAILY [facility] Last Admin: 06/01/20 08:40 Dose: 40 meq Documented by: Potassium Chloride (Klor-Con M20) 40 meq PO ONETIME ONE Stop: 06/01/20 12:01 Propafenone HCl (Rythmol) 225 mg PO DAILY [facility] Last Admin: 06/01/20 08:41 Dose: 225 mg Documented by: Simvastatin (Zocor) 20 mg PO BEDTIME [facility] Last Admin: 05/31/20 20:29 Dose: 20 mg Documented by: Sodium Chloride (Saline Flush) 10 ml FLUSH ASDIRECTED PRN PRN Reason: Keep Vein Open Last Admin: 05/30/20 17:45 Dose: 10 ml Documented by: Discontinued Medications Apixaban (Eliquis) 5 mg PO BID [facility] Last Admin: 05/31/20 20:29 Dose: 5 mg Documented by: Apixaban (Eliquis) Confirm Administered Dose 5 mg .ROUTE .STK-MED ONE Stop: 05/30/20 21:08 Last Admin: 05/30/20 21:22 Dose: Not Given Documented by: Furosemide (Lasix) 40 mg IVPUSH ONETIME ONE Stop: 05/30/20 18:36 Last Admin: 05/30/20 18:42 Dose: 40 mg Documented by: Furosemide (Lasix) 40 mg IVPUSH DAILY [facility] Stop: 05/31/20 09:01 Last Admin: 05/31/20 08:47 Dose: 40 mg Documented by: Furosemide (Lasix) 40 mg IVPUSH NOW ONE Stop: 05/31/20 21:01 Last Admin: 05/31/20 20:30 Dose: 40 mg Documented by: Potassium Chloride (Klor-Con M20) 40 meq PO ONETIME ONE Stop: 05/30/20 19:39 Last Admin: 05/30/20 21:18 Dose: 40 meq Documented by: Sodium Chloride (Saline Flush) 10 ml FLUSH ASDIRECTED PRN PRN Reason: Keep Vein Open Last Admin: 05/30/20 17:45 Dose: 10 ml Documented by: - Exam Quality Assessment: Supplemental Oxygen, DVT Prophylaxis General: Alert, Oriented, Cooperative, No Acute Distress Lungs: Clear to Auscultation, Normal Respiratory Effort, Decreased Breath Sounds Cardiovascular: Regular Rate, No Murmurs, Irregular Rhythm GI/Abdominal Exam: Soft, Non-Tender, No Organomegaly, No Distention Extremities: Non-Tender, Pedal Edema - Patient Data Lab Results Last 24 hrs: Laboratory Results - last 24 hr 05/31/20 06/01/20 06/01/20 Range/Units 18:50 05:11 05:11 WBC 6.9 (4.5-11.0) K/uL RBC 3.11 L (4.30-5.90) M/uL Hgb 10.0 L 8.5 L (12.0-15.0) g/dL Hct 29.7 L (40.0-54.0) % MCV 96 (80-98) fL MCH 27 (27-31) pg MCHC 29 L (32-36) % Plt Count 188 (150-400) K/uL Neut % (Auto) 63 (36-66) % Lymph % (Auto) 17 L (24-44) % [place] % (Auto) 18 H (2-6) % Eos % (Auto) 3 (2-4) % Baso % (Auto) 0 (0-1) % Sodium 140 (140-148) mmol/L Potassium 3.1 L (3.6-5.2) mmol/L Chloride 103 (100-108) mmol/L Carbon Dioxide 31 (21-32) mmol/L Anion Gap 9.1 (5.0-14.0) mmol/L BUN 19 H (7-18) mg/dL Creatinine 1.1 (0.8-1.3) mg/dL Est Cr Clr Drug Dosing 45.94 mL/min Estimated GFR (MDRD) > 60 (>60) Glucose 127 H (74-106) mg/dL Calcium 8.9 (8.5-10.1) mg/dL Magnesium 1.5 L (1.8-2.4) mg/dL Result Diagrams: 06/01/20 05:11 06/01/20 05:11 Brock Results Last 24 hrs: Microbiology 05/31/20 18:45 Stool Occult Blood (BROCK) - Final Stool / Feces Sepsis Event Note - Evaluation Sepsis Screening Result: No Definite Risk - Focused Exam Vital Signs: Vital Signs Temp Pulse Pulse Resp BP BP BP 06/01/20 08:41 86 06/01/20 08:40 86 117/64 06/01/20 08:30 06/01/20 08:28 96.7 F L 86 20 117/64 06/01/20 02:34 97.7 F 87 18 122/77 05/31/20 23:51 97.1 F 89 18 116/56 L Pulse Ox 06/01/20 08:41 06/01/20 08:40 06/01/20 08:30 91 L 06/01/20 08:28 86 L 06/01/20 02:34 94 L 05/31/20 23:51 91 L - Problem List Review Problem List Initiated/Reviewed/Updated: Yes - My Orders Last 24 Hours: My Active Orders 05/31/20 18:39 Hemoccult [Fecal Occult Blood Collection] [RC] ASDIRECTED 06/01/20 09:00 Magnesium Oxide 400 mg PO BID Magnesium Sulfate/Water [Magnesium Sulfate in Water 2 GM/50 ML] 2 gm in 50 ml IV Q6H 06/01/20 10:00 Potassium Chloride 20 meq Lidocaine 1% [Xylocaine 1%] 2 ml Sodium Chloride 0.9% [Normal Saline] 100 ml IV Q2H 06/01/20 10:21 Verify Patient Consent Obtain [RC] ASDIRECTED bisacodyL [Dulcolax] 10 mg PO ONETIME ONE Schedule Procedure [COMM] Routine 06/01/20 10:22 Consult to Physician [CONS] Routine 06/01/20 10:23 Notify Provider Consults [RC] ASDIRECTED 06/01/20 Lunch Clear Liquid Diet [DIET] Potassium Chloride [Klor-Con M20] 40 meq PO ONETIME ONE 06/01/20 13:00 HGB [HEMOGLOBIN] [HEME] Stat 06/01/20 17:00 polyethylene glycoL 3350 [MiraLAX] 238 gm PO ONETIME ONE 06/01/20 20:00 bisacodyL [Dulcolax] 10 mg PO ONETIME ONE 06/01/20 21:00 HGB [HEMOGLOBIN] [HEME] Stat 06/02/20 05:00 BASIC METABOLIC PANEL,BMP [CHEM] Timed CBC WITH AUTO DIFF [HEME] Timed MAGNESIUM [CHEM] Timed 06/02/20 Breakfast NPO After Midnight [Nothing per Oral After Midnight Diet] [DIET] - Plan Plan:: ASSESSMENT AND PLAN - Subacute exacerbation of congestive heart failure-several weeks of progressive swelling and increasing dyspnea. Preliminary report from echocardiogram shows hyperdynamic left ventricular function, formal report pending. Diuresis so far with improvement in peripheral edema, level of dyspnea has remained stable -Hold diuresis today because of GI bleed -Gan catheter for strict intake and output monitoring -Wrap both lower legs with Pan wraps to help with mechanical fluid removal -Daily weights GI bleed-he has had melenic stools over the past 16 hours with a drop in hemoglobin. -Hold apixaban -Serial hemoglobin levels -Type and cross to hold 2 units of red blood cells -EGD and colonoscopy in a.m. Atrial fibrillation with rapid ventricular response-mild tachycardia at this time in the setting of congestive heart failure. -Start low-dose beta-donya for rate control -Hold apixaban because of GI bleed Anemia-hemoglobin of 12 with borderline macrocytic index. He does have some bruising on his left arm but probably not enough to explain the anemia. -Repeat hemoglobin in the morning -B12 level Generalized weakness-probably result of the progressive congestive heart failure with possible contribution from the atrial fibrillation. -Physical therapy in the morning -Additional management as above Maintenance issues - - DVT prophylaxis -apixaban - GI prophylaxis -not indicated - Nutrition -low-sodium - Gan catheter -placed for strict intake and output monitoring CODE STATUS -full code Admission justification -this patient will be admitted for inpatient services and is medically appropriate meeting medical necessity for inpatient admission as outlined in my documentation. I reasonably expect the patient will require inpatient services that span a period time over 2 midnights. I reasonably expect this patient to be discharged or transferred within 96 hours [facility]. Disposition -I would anticipate discharge home with home care versus possibly subacute rehab Primary care physician -
[2020-06-01] MEDS ORDERED: Bisacodyl 5 MG Tab PO ONE ×2 (11:00→20:00)
[2020-06-01] MEDS: Potassium Chloride 20 MEQ, Lidocaine 1% 2 ML in Sodium Chloride 0.9% 100 ML IV SCH ×2 (11:34→13:28)
[2020-06-01] MEDS ORDERED: Potassium Chloride 20 MEQ Tab.ER PO ONE (12:00)
[2020-06-01] MEDS ORDERED: Polyethylene Glycol 3350 Powder 238 GM Bot PO ONE (17:00)
[2020-06-01] MEDS: Melatonin 3 MG Tab PO SCH (20:21)
[2020-06-01] MEDS: Simvastatin 20 MG Tab PO SCH (20:22)
[2020-06-02] MEDS ORDERED: Dextrose 5%-Lactated Ringers 1,000 ML IV SCH
[2020-06-02] MEDS ORDERED: Propofol 200 MG/20 ML SDV ONE (07:04)
[2020-06-02] MEDS ORDERED: fentaNYL 100 MCG/2 ML SDV ONE (07:04)
--- NOTE | 2020-06-02 07:40 | PCM.CONS ---
H&P History of Present Illness - General Date of Service: 06/02/20 Admit Problem/Dx: Admission Diagnosis/Problem Admission Diagnosis/Problem CHF, Congestive heart failure Source of Information: Patient History Limitations: Reports: Altered Mental Status - History of Present Illness Initial Comments - Free Text/Narative: Arnie is a 89 year old male who the hospitalist asked surgery to see for a GI bleed. He is NPO and has had his prep for an EGD and Colonoscopy today Left Arm Pain Score (Numeric/FACES): 5 - Related Data Allergies/Adverse Reactions: Allergies Allergy/AdvReac Type Severity Reaction Status Date / Time venom-honey bee Allergy Severe Anaphylactic Verified 05/30/20 16:44 [bee venom (honey bee)] Shock propoxyphene HCl AdvReac Nausea and Verified 05/30/20 16:44 [From Darvon] Vomiting Home Medications: Home Meds Propafenone [Rythmol] 225 mg PO DAILY 02/17/13 [History] Simvastatin [Zocor] 20 mg PO DAILY 02/17/13 [History] Ferrous Sulfate [Feosol] 325 mg PO DAILY 03/05/20 [History] Multivit-Min/FA/Lycopen/Lutein [Centrum Silver Men Tablet] 1 each PO DAILY 03/05/20 [History] Apixaban [Eliquis] 5 mg PO BID #60 tablet 03/19/20 [Rx] Areds 2 1 cap PO DAILY 05/30/20 [History] Furosemide [Lasix] 20 mg PO DAILY 05/30/20 [History] Past Medical History HEENT History: Reports: Cataract, Macular Degeneration Cardiovascular History: Reports: Afib, CAD, High Cholesterol, Hypertension, [place], Other (See Below) Other Cardiovascular History: Aortic valve sclerosis Respiratory History: Reports: Sleep Apnea Other Respiratory History: c-pap Genitourinary History: Reports: Other (See Below) Other Genitourinary History: nocturia Musculoskeletal History: Reports: Other (See Below) Other Musculoskeletal History: carpal tunnel syndrome Neurological History: Reports: Other (See Below) Endocrine/Metabolic History: Reports: Obesity/BMI 30+, Other (See Below) Other Endocrine/Metabolic History: impaired fasting glucose Hematologic History: Reports: Anemia Oncologic (Cancer) History: Reports: Other (See Below) 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 - Infectious Disease History Infectious Disease History: Reports: Chicken Pox, Measles, Mumps, Novel Coronavirus, Pertussis (Whooping Cough), Shingles - Past Surgical History HEENT Surgical History: Reports: Cataract Surgery, Oral Surgery, Other (See Below) Other HEENT Surgeries/Procedures: dentures GI Surgical History: Reports: Hernia Repair/Other Musculoskeletal Surgical History: Reports: Knee Replacement Other Musculoskeletal Surgeries/Procedures:: right and left Social & Family History - Tobacco Use Tobacco Use Status *Q: Former Tobacco User Used Tobacco, but Quit: Yes Month/Year Tobacco Last Used: 40 years ago - Caffeine Use Caffeine Use: Reports: Coffee - Recreational Drug Use Recreational Drug Use: No H&P Review of Systems - Review of Systems: Review Of Systems: See Below General: Reports: Weakness, Fatigue HEENT: Reports: No Symptoms Pulmonary: Reports: No Symptoms Cardiovascular: Reports: No Symptoms Gastrointestinal: Reports: No Symptoms Genitourinary: Reports: No Symptoms Musculoskeletal: Reports: No Symptoms Skin: Reports: No Symptoms Psychiatric: Reports: No Symptoms Neurological: Reports: No Symptoms Hematologic/Lymphatic: Reports: Anemia Immunologic: Reports: No Symptoms Exam - Exam Exam: See Below - Vital Signs Vital Signs: Last Vital Signs Temp 96.6 F L 06/02/20 07:30 Pulse 89 06/02/20 07:30 Resp 14 06/02/20 07:30 BP 123/69 06/02/20 07:30 Pulse Ox 95 06/02/20 07:30 Weight: 228 lb 6.382 oz - Exam Quality Assessment: Urinary Catheter, DVT Prophylaxis General: Cooperative HEENT: PERRLA Neck: Supple, Trachea Midline Lungs: Decreased Breath Sounds Cardiovascular: Regular Rate, Regular Rhythm GI/Abdominal Exam: Soft, Non-Tender, No Distention (Male) Exam: Deferred Rectal (Males) Exam: Deferred Back Exam: Normal Inspection Extremities: Normal Inspection Skin: Warm, Dry, Intact Neurological: Cranial Nerves Intact Neuro Extensive - Mental Status: Alert, Oriented x3 Neuro Extensive - Motor, Sensory, Reflexes: CN II-XII Intact Psychiatric: Normal Affect, Labile Mood - Patient Data Lab Results Last 24 hrs: Laboratory Results - last 24 hr 06/01/20 06/01/20 06/01/20 Range/Units 12:55 13:00 21:00 WBC (4.5-11.0) K/uL RBC (4.30-5.90) M/uL Hgb 9.3 L 9.6 L (12.0-15.0) g/dL Hct (40.0-54.0) % MCV (80-98) fL MCH (27-31) pg MCHC (32-36) % Plt Count (150-400) K/uL Neut % (Auto) (36-66) % Lymph % (Auto) (24-44) % [place] % (Auto) (2-6) % Eos % (Auto) (2-4) % Baso % (Auto) (0-1) % Sodium (140-148) mmol/L Potassium (3.6-5.2) mmol/L Chloride (100-108) mmol/L Carbon Dioxide (21-32) mmol/L Anion Gap (5.0-14.0) mmol/L BUN (7-18) mg/dL Creatinine (0.8-1.3) mg/dL Est Cr Clr Drug Dosing mL/min Estimated GFR (MDRD) (>60) Glucose (74-106) mg/dL Calcium (8.5-10.1) mg/dL Magnesium (1.8-2.4) mg/dL SARS-CoV-2 RNA (GENI) (NEGATIVE) Blood Type A NEGATIVE Gel Antibody Screen Negative Crossmatch See Detail 06/02/20 06/02/20 06/02/20 Range/Units 04:24 04:24 04:26 WBC 6.7 (4.5-11.0) K/uL RBC 3.24 L (4.30-5.90) M/uL Hgb 9.0 L (12.0-15.0) g/dL Hct 31.0 L (40.0-54.0) % MCV 96 (80-98) fL MCH 28 (27-31) pg MCHC 29 L (32-36) % Plt Count 201 (150-400) K/uL Neut % (Auto) 63 (36-66) % Lymph % (Auto) 19 L (24-44) % [place] % (Auto) 15 H (2-6) % Eos % (Auto) 3 (2-4) % Baso % (Auto) 0 (0-1) % Sodium 142 (140-148) mmol/L Potassium 4.3 (3.6-5.2) mmol/L Chloride 106 (100-108) mmol/L Carbon Dioxide 32 (21-32) mmol/L Anion Gap 4.1 L (5.0-14.0) mmol/L BUN 12 (7-18) mg/dL Creatinine 0.8 (0.8-1.3) mg/dL Est Cr Clr Drug Dosing 63.17 mL/min Estimated GFR (MDRD) > 60 (>60) Glucose 90 (74-106) mg/dL Calcium 8.8 (8.5-10.1) mg/dL Magnesium 2.2 (1.8-2.4) mg/dL SARS-CoV-2 RNA (GENI) Positive H (NEGATIVE) Blood Type Gel Antibody Screen Crossmatch Result Diagrams: 06/02/20 04:24 06/02/20 04:24 Sepsis Event Note - Evaluation Sepsis Screening Result: No Definite Risk - Focused Exam Vital Signs: Vital Signs Temp Temp Pulse Pulse Resp BP BP 06/02/20 07:30 96.6 F L 89 14 123/69 06/02/20 02:51 97.3 F 82 16 108/68 06/01/20 21:56 98.1 F 89 17 114/74 06/01/20 20:22 82 114/74 Pulse Ox 06/02/20 07:30 95 06/02/20 02:51 97 06/01/20 21:56 100 06/01/20 20:22 Consult PN Assessment/Plan POD#: 0 Procedures: Procedures AGENT NOS ASSAY W/OPTIC (04/06/20) AIRWAY INHALATION TREATMENT (05/25/20) ASSAY OF CK (CPK) (03/14/20) ASSAY OF FERRITIN (03/05/20) ASSAY OF LACTIC ACID (04/06/20) ASSAY OF MAGNESIUM (04/06/20) ASSAY OF TROPONIN QUANT (03/05/20) BLOOD CULTURE FOR BACTERIA (04/06/20) BLOOD TRANSFUSION SERVICE (03/05/20) BLOOD TYPING SEROLOGIC ABO (03/05/20) BLOOD TYPING SEROLOGIC RH(D) (03/05/20) C DIFF AMPLIFIED PROBE (03/14/20) C-REACTIVE PROTEIN (04/06/20) CARPAL TUNNEL SURGERY (02/18/13) COMPLETE CBC AUTOMATED (03/14/20) COMPLETE CBC W/AUTO DIFF WBC (04/06/20) COMPREHEN METABOLIC PANEL (04/06/20) CT ANGIOGRAPHY CHEST (05/28/20) ELECTROCARDIOGRAM REPORT (03/14/20) ELECTROCARDIOGRAM TRACING (03/14/20) EMERGENCY DEPT VISIT (05/25/20) EMERGENCY DEPT VISIT (05/25/20) EMERGENCY DEPT VISIT (04/06/20) EMERGENCY DEPT VISIT (04/06/20) EMERGENCY DEPT VISIT (10/07/18) EVALUATE SWALLOWING FUNCTION (03/05/20) EXTREMITY STUDY (05/27/20) FIBRIN DEGRADATION QUANT (03/05/20) HEPATIC FUNCTION PANEL (03/14/20) HOSPITAL DISCHARGE DAY (03/14/20) HOSPITAL DISCHARGE DAY (03/05/20) HYDRATE IV INFUSION ADD-ON (10/07/18) INITIAL HOSPITAL CARE (03/05/20) INSERT TEMP BLADDER CATH (03/14/20) LACTATE (LD) (LDH) ENZYME (03/05/20) LEUKOCYTE ASSESSMENT FECAL (04/06/20) MEASURE BLOOD OXYGEN LEVEL (03/05/20) METABOLIC PANEL TOTAL CA (04/06/20) OCCULT BLOOD FECES (04/06/20) PROCALCITONIN (PCT) (04/06/20) PROTHROMBIN TIME (03/05/20) PT EVAL MOD COMPLEX 30 MIN (04/06/20) ROUTINE VENIPUNCTURE (04/06/20) STOOL CULTR AEROBIC BACT EA (04/06/20) SUBSEQUENT HOSPITAL CARE (03/14/20) SUBSEQUENT HOSPITAL CARE (03/14/20) SUBSEQUENT HOSPITAL CARE (03/05/20) SUBSEQUENT HOSPITAL CARE (03/05/20) THER/PROPH/DIAG INJ IV PUSH (10/07/18) THER/PROPH/DIAG IV INF ADDON (03/14/20) THER/PROPH/DIAG IV INF INIT (03/14/20) THERAPEUTIC ACTIVITIES (04/06/20) THERAPEUTIC EXERCISES (04/06/20) TX/PRO/DX INJ NEW DRUG ADDON (03/05/20) TX/PRO/DX INJ SAME DRUG [employer] (03/14/20) TX/PROPH/DG ADDL SEQ IV INF (03/14/20) URINALYSIS AUTO W/SCOPE (04/06/20) URINE CULTURE/COLONY COUNT (03/05/20) US EXAM ABDOM COMPLETE (03/14/20) X-RAY EXAM CHEST 1 VIEW (03/14/20) X-RAY EXAM OF SHOULDER (03/14/20) Problem List Initiated/Reviewed/Updated: Yes My Orders Last 24 Hours: Orders to be written after EGD and Colonoscopy Thank you for this consultation Tisha Arroyo 06/02/2020
[2020-06-02] MEDS ORDERED: Bisacodyl 5 MG Tab PO ONE ×2 (09:00→20:00)
[2020-06-02] MEDS: Multivitamins with Iron/Calcium/Folic Acid/Minerals Tab PO SCH (09:40)
[2020-06-02] MEDS: Metoprolol Tartrate 25 MG Tab PO SCH ×2 (09:41→21:41)
[2020-06-02] MEDS: Magnesium Oxide 400 MG Tab PO SCH ×2 (09:42→21:41)
[2020-06-02] MEDS: Potassium Chloride 20 MEQ Tab.ER PO SCH (09:43)
--- NOTE | 2020-06-02 11:21 | PCM.PN ---
- General Info Date of Service: 06/02/20 Subjective Update: Mr. Infante has been stable over the last 24 hours. There is been no further evidence of active bleeding or significant further drop in hemoglobin level. EGD was performed this morning by Dr. Duggan and did document diffuse gastritis. Colonoscopy could not be performed because of incomplete prep. Otherwise he reports that he has been feeling well and currently denies significant shortness of breath. Functional Status: Reports: Tolerating Diet - Review of Systems General: Reports: Weakness, Fatigue. Denies: Fever, Chills Pulmonary: Reports: No Symptoms Cardiovascular: Reports: No Symptoms Gastrointestinal: Reports: No Symptoms - Patient Data Vitals - Most Recent: Last Vital Signs Temp 96.3 F L 06/02/20 10:50 Pulse 80 06/02/20 10:50 Resp 16 06/02/20 10:50 BP 103/61 06/02/20 10:50 Pulse Ox 96 06/02/20 10:50 Weight - Most Recent: 228 lb 6.382 oz I&O - Last 24 Hours: Intake & Output 06/01/20 06/02/20 06/02/20 22:59 06:59 14:59 Intake Total 2506 415 Output Total 700 475 Balance 1806 -475 415 Lab Results Last 24 Hours: Laboratory Results - last 24 hr 06/01/20 06/01/20 06/01/20 Range/Units 12:55 13:00 21:00 WBC (4.5-11.0) K/uL RBC (4.30-5.90) M/uL Hgb 9.3 L 9.6 L (12.0-15.0) g/dL Hct (40.0-54.0) % MCV (80-98) fL MCH (27-31) pg MCHC (32-36) % Plt Count (150-400) K/uL Neut % (Auto) (36-66) % Lymph % (Auto) (24-44) % [place] % (Auto) (2-6) % Eos % (Auto) (2-4) % Baso % (Auto) (0-1) % Sodium (140-148) mmol/L Potassium (3.6-5.2) mmol/L Chloride (100-108) mmol/L Carbon Dioxide (21-32) mmol/L Anion Gap (5.0-14.0) mmol/L BUN (7-18) mg/dL Creatinine (0.8-1.3) mg/dL Est Cr Clr Drug Dosing mL/min Estimated GFR (MDRD) (>60) Glucose (74-106) mg/dL Calcium (8.5-10.1) mg/dL Magnesium (1.8-2.4) mg/dL SARS-CoV-2 RNA (GENI) (NEGATIVE) Blood Type A NEGATIVE Gel Antibody Screen Negative Crossmatch See Detail 06/02/20 06/02/20 06/02/20 Range/Units 04:24 04:24 04:26 WBC 6.7 (4.5-11.0) K/uL RBC 3.24 L (4.30-5.90) M/uL Hgb 9.0 L (12.0-15.0) g/dL Hct 31.0 L (40.0-54.0) % MCV 96 (80-98) fL MCH 28 (27-31) pg MCHC 29 L (32-36) % Plt Count 201 (150-400) K/uL Neut % (Auto) 63 (36-66) % Lymph % (Auto) 19 L (24-44) % [place] % (Auto) 15 H (2-6) % Eos % (Auto) 3 (2-4) % Baso % (Auto) 0 (0-1) % Sodium 142 (140-148) mmol/L Potassium 4.3 (3.6-5.2) mmol/L Chloride 106 (100-108) mmol/L Carbon Dioxide 32 (21-32) mmol/L Anion Gap 4.1 L (5.0-14.0) mmol/L BUN 12 (7-18) mg/dL Creatinine 0.8 (0.8-1.3) mg/dL Est Cr Clr Drug Dosing 63.17 mL/min Estimated GFR (MDRD) > 60 (>60) Glucose 90 (74-106) mg/dL Calcium 8.8 (8.5-10.1) mg/dL Magnesium 2.2 (1.8-2.4) mg/dL SARS-CoV-2 RNA (GENI) Positive H (NEGATIVE) Blood Type Gel Antibody Screen Crossmatch Med Orders - Current: Current Medications Acetaminophen (Tylenol) 650 mg PO Q4H PRN PRN Reason: Pain (Mild 1-3)/fever Albuterol (Proventil Neb Soln) 2.5 mg NEB Q4H PRN PRN Reason: Shortness Of Breath/wheezing Bisacodyl (Dulcolax) 10 mg PO ONETIME ONE Stop: 06/02/20 20:01 Lactated Ringer's (Ringers, Lactated) 1,000 mls @ 75 mls/hr IV ASDIRECTED [facility] Lorazepam (Ativan) 0.5 mg IVPUSH Q4H PRN PRN Reason: Nausea/Vomiting Magnesium Oxide (Magnesium Oxide) 400 mg PO BID [facility] Last Admin: 06/02/20 09:42 Dose: 400 mg Documented by: Melatonin (Melatonin) 9 mg PO BEDTIME [facility] Last Admin: 06/01/20 20:21 Dose: 9 mg Documented by: Metoprolol Tartrate (Lopressor) 12.5 mg PO Q12H [facility] Last Admin: 06/02/20 09:41 Dose: 12.5 mg Documented by: Multivitamins/Minerals (Thera M Plus) 1 tab PO DAILY [facility] Last Admin: 06/02/20 09:40 Dose: 1 tab Documented by: Ondansetron HCl (Zofran) 4 mg IV Q6H PRN PRN Reason: Nausea/Vomiting Ondansetron HCl (Zofran Odt) 4 mg PO Q6H PRN PRN Reason: Nausea able to take PO Pantoprazole Sodium (Protonix Iv) 40 mg IVPUSH Q12H [facility] Polyethylene Glycol (Miralax) 238 gm PO ONETIME ONE Stop: 06/02/20 17:01 Potassium Chloride (Klor-Con M20) 40 meq PO DAILY [facility] Last Admin: 06/02/20 09:43 Dose: 40 meq Documented by: Propafenone HCl (Rythmol) 225 mg PO DAILY [facility] Last Admin: 06/02/20 09:41 Dose: 225 mg Documented by: Simvastatin (Zocor) 20 mg PO BEDTIME [facility] Last Admin: 06/01/20 20:22 Dose: 20 mg Documented by: Sodium Chloride (Saline Flush) 10 ml FLUSH ASDIRECTED PRN PRN Reason: Keep Vein Open Last Admin: 05/30/20 17:45 Dose: 10 ml Documented by: Discontinued Medications Apixaban (Eliquis) 5 mg PO BID [facility] Last Admin: 05/31/20 20:29 Dose: 5 mg Documented by: Apixaban (Eliquis) Confirm Administered Dose 5 mg .ROUTE .STK-MED ONE Stop: 05/30/20 21:08 Last Admin: 05/30/20 21:22 Dose: Not Given Documented by: Bisacodyl (Dulcolax) 10 mg PO ONETIME ONE Stop: 06/01/20 11:01 Last Admin: 06/01/20 12:36 Dose: 10 mg Documented by: Bisacodyl (Dulcolax) 10 mg PO ONETIME ONE Stop: 06/01/20 20:01 Last Admin: 06/01/20 20:21 Dose: 10 mg Documented by: Bisacodyl (Dulcolax) 10 mg PO ONETIME ONE Stop: 06/02/20 09:01 Last Admin: 06/02/20 09:45 Dose: 10 mg Documented by: Fentanyl (Sublimaze) Confirm Administered Dose 100 mcg .ROUTE .STK-MED ONE Stop: 06/02/20 07:05 Furosemide (Lasix) 40 mg IVPUSH ONETIME ONE Stop: 05/30/20 18:36 Last Admin: 05/30/20 18:42 Dose: 40 mg Documented by: Furosemide (Lasix) 40 mg IVPUSH DAILY [facility] Stop: 05/31/20 09:01 Last Admin: 05/31/20 08:47 Dose: 40 mg Documented by: Furosemide (Lasix) 40 mg IVPUSH NOW ONE Stop: 05/31/20 21:01 Last Admin: 05/31/20 20:30 Dose: 40 mg Documented by: Magnesium Sulfate (Magnesium Sulfate In Water 2 Gm/50 Ml) 2 gm in 50 mls @ 12.5 mls/hr IV Q6H [facility] Stop: 06/01/20 18:59 Last Admin: 06/01/20 15:08 Dose: 12.5 mls/hr Documented by: Potassium Chloride 20 meq/Lidocaine HCl 2 ml/ Sodium Chloride 112 mls @ 56 mls/hr IV Q2H [facility] Stop: 06/01/20 13:59 Last Admin: 06/01/20 13:28 Dose: 56 mls/hr Documented by: Dextrose/Lactated Ringer's (Dextrose 5%-Lactated Ringers) 1,000 mls @ 100 mls/hr IV ASDIRECTED [facility] Last Admin: 06/02/20 04:16 Dose: 100 mls/hr Documented by: Polyethylene Glycol (Miralax) 238 gm PO ONETIME ONE Stop: 06/01/20 17:01 Last Admin: 06/01/20 16:40 Dose: 238 gm Documented by: Potassium Chloride (Klor-Con M20) 40 meq PO ONETIME ONE Stop: 05/30/20 19:39 Last Admin: 05/30/20 21:18 Dose: 40 meq Documented by: Potassium Chloride (Klor-Con M20) 40 meq PO ONETIME ONE Stop: 06/01/20 12:01 Last Admin: 06/01/20 12:36 Dose: 40 meq Documented by: Propofol (Diprivan 20 Ml) Confirm Administered Dose 200 mg .ROUTE .STK-MED ONE Stop: 06/02/20 07:05 Sodium Chloride (Saline Flush) 10 ml FLUSH ASDIRECTED PRN PRN Reason: Keep Vein Open Last Admin: 05/30/20 17:45 Dose: 10 ml Documented by: - Exam General: Alert, Oriented, Cooperative, No Acute Distress Lungs: Clear to Auscultation, Normal Respiratory Effort, Decreased Breath Sounds Cardiovascular: Regular Rate, Regular Rhythm, No Murmurs GI/Abdominal Exam: Soft, Non-Tender, No Organomegaly, No Distention Extremities: Non-Tender, Pedal Edema - Patient Data Lab Results Last 24 hrs: Laboratory Results - last 24 hr 06/01/20 06/01/20 06/01/20 Range/Units 12:55 13:00 21:00 WBC (4.5-11.0) K/uL RBC (4.30-5.90) M/uL Hgb 9.3 L 9.6 L (12.0-15.0) g/dL Hct (40.0-54.0) % MCV (80-98) fL MCH (27-31) pg MCHC (32-36) % Plt Count (150-400) K/uL Neut % (Auto) (36-66) % Lymph % (Auto) (24-44) % [place] % (Auto) (2-6) % Eos % (Auto) (2-4) % Baso % (Auto) (0-1) % Sodium (140-148) mmol/L Potassium (3.6-5.2) mmol/L Chloride (100-108) mmol/L Carbon Dioxide (21-32) mmol/L Anion Gap (5.0-14.0) mmol/L BUN (7-18) mg/dL Creatinine (0.8-1.3) mg/dL Est Cr Clr Drug Dosing mL/min Estimated GFR (MDRD) (>60) Glucose (74-106) mg/dL Calcium (8.5-10.1) mg/dL Magnesium (1.8-2.4) mg/dL SARS-CoV-2 RNA (GENI) (NEGATIVE) Blood Type A NEGATIVE Gel Antibody Screen Negative Crossmatch See Detail 06/02/20 06/02/20 06/02/20 Range/Units 04:24 04:24 04:26 WBC 6.7 (4.5-11.0) K/uL RBC 3.24 L (4.30-5.90) M/uL Hgb 9.0 L (12.0-15.0) g/dL Hct 31.0 L (40.0-54.0) % MCV 96 (80-98) fL MCH 28 (27-31) pg MCHC 29 L (32-36) % Plt Count 201 (150-400) K/uL Neut % (Auto) 63 (36-66) % Lymph % (Auto) 19 L (24-44) % [place] % (Auto) 15 H (2-6) % Eos % (Auto) 3 (2-4) % Baso % (Auto) 0 (0-1) % Sodium 142 (140-148) mmol/L Potassium 4.3 (3.6-5.2) mmol/L Chloride 106 (100-108) mmol/L Carbon Dioxide 32 (21-32) mmol/L Anion Gap 4.1 L (5.0-14.0) mmol/L BUN 12 (7-18) mg/dL Creatinine 0.8 (0.8-1.3) mg/dL Est Cr Clr Drug Dosing 63.17 mL/min Estimated GFR (MDRD) > 60 (>60) Glucose 90 (74-106) mg/dL Calcium 8.8 (8.5-10.1) mg/dL Magnesium 2.2 (1.8-2.4) mg/dL SARS-CoV-2 RNA (GENI) Positive H (NEGATIVE) Blood Type Gel Antibody Screen Crossmatch Result Diagrams: 06/02/20 04:24 06/02/20 04:24 Sepsis Event Note - Evaluation Sepsis Screening Result: No Definite Risk - Focused Exam Vital Signs: Vital Signs Temp Temp Pulse Pulse Resp BP BP 06/02/20 10:50 96.3 F L 80 16 103/61 06/02/20 09:45 88 16 06/02/20 09:41 89 119/69 06/02/20 09:13 88 16 06/02/20 08:54 75 16 06/02/20 08:38 82 16 06/02/20 08:10 97.9 F 97 16 06/02/20 07:50 97.2 F 84 16 06/02/20 07:45 89 16 06/02/20 07:40 94 14 06/02/20 07:35 96 14 06/02/20 07:30 96.6 F L 89 14 06/02/20 02:51 97.3 F 82 16 108/68 BP Pulse Ox 06/02/20 10:50 96 06/02/20 09:45 117/71 95 06/02/20 09:41 06/02/20 09:13 119/69 95 06/02/20 08:54 109/69 96 06/02/20 08:38 102/70 94 L 06/02/20 08:10 115/80 95 06/02/20 07:50 115/73 94 L 06/02/20 07:45 115/74 94 L 06/02/20 07:40 119/70 94 L 06/02/20 07:35 119/70 97 06/02/20 07:30 123/69 95 06/02/20 02:51 97 - Problem List Review Problem List Initiated/Reviewed/Updated: Yes - My Orders Last 24 Hours: My Active Orders 06/01/20 10:21 Verify Patient Consent Obtain [RC] ASDIRECTED Schedule Procedure [COMM] Routine 06/01/20 10:22 Consult to Physician [CONS] Routine 06/01/20 10:23 Notify Provider Consults [RC] ASDIRECTED 06/01/20 12:55 RED BLOOD CELLS LP [BBK] Routine TYPE AND SCREEN [BBK] Routine 06/02/20 07:24 SAUNDRA TEST [RM] Routine 06/02/20 11:14 Convert IV to Saline Lock [OM.PC] Routine 06/02/20 11:15 Pantoprazole [ProTONIX IV] 40 mg IVPUSH Q12H 06/02/20 11:16 Remove Gan Catheter [Urinary Catheter Removal] [RC] Per Unit Routine 06/02/20 17:00 HGB [HEMOGLOBIN] [HEME] Stat 06/03/20 00:01 Lactated Ringers [Ringers, Lactated] 1,000 ml IV ASDIRECTED 06/03/20 05:00 BASIC METABOLIC PANEL,BMP [CHEM] Timed 06/03/20 05:11 HGB [HEMOGLOBIN] [HEME] AM - Plan Plan:: ASSESSMENT AND PLAN - Subacute exacerbation of congestive heart failure-several weeks of progressive swelling and increasing dyspnea. Preliminary report from echocardiogram shows hyperdynamic left ventricular function, formal report pending. Diuresis so far with improvement in peripheral edema, level of dyspnea has remained stable -Hold diuresis today because of GI bleed -Discontinue Gan catheter -Wrap both lower legs with Pan wraps to help with mechanical fluid removal -Daily weights GI bleed-stable since yesterday with no further evidence of active bleeding. Colonoscopy could not be performed because of incomplete prep. EGD did show evidence of diffuse gastritis, probable source of recent bleed -Hold apixaban -Serial hemoglobin levels -Type and cross to hold 2 units of red blood cells -colonoscopy in a.m. -Tonics 40 mg IV every 12 hours Atrial fibrillation with rapid ventricular response-rate currently under good control -Start low-dose beta-donya for rate control -Hold apixaban because of GI bleed Anemia-secondary to GI bleed Generalized weakness-probably result of the progressive congestive heart failure with possible contribution from the atrial fibrillation. -Physical therapy in the morning -Additional management as above Maintenance issues - - DVT prophylaxis -anticoagulation on hold because of active bleeding - GI prophylaxis -tonics as above - Nutrition -clear liquid diet - Gan catheter -removed today CODE STATUS -full code Admission justification -this patient will be admitted for inpatient services and is medically appropriate meeting medical necessity for inpatient admission as outlined in my documentation. I reasonably expect the patient will require inpatient services that span a period time over 2 midnights. I reasonably expect this patient to be discharged or transferred within 96 hours [facility] Disposition -I would anticipate discharge home with home care versus possibly subacute rehab Primary care physician -
[2020-06-02] MEDS: Pantoprazole 40 MG Vial IVPUSH SCH ×2 (12:42→23:21)
[2020-06-02] MEDS ORDERED: Polyethylene Glycol 3350 Powder 238 GM Bot PO ONE (17:00)
[2020-06-02] MEDS: Melatonin 3 MG Tab PO SCH (21:41)
[2020-06-02] MEDS: Simvastatin 20 MG Tab PO SCH (21:41)
[2020-06-03] MEDS ORDERED: Lactated Ringers 1,000 ML IV SCH (00:01)
[2020-06-03] MEDS ORDERED: Propofol 200 MG/20 ML SDV ONE (09:32)
[2020-06-03] MEDS ORDERED: fentaNYL 100 MCG/2 ML SDV ONE (09:32)
--- NOTE | 2020-06-03 09:50 | PN ---
DATE OF SERVICE: 06/03/2020 SUBJECTIVE: Arnie will have colonoscopy today. He did not have adequate prep yesterday. REVIEW OF SYSTEMS: Negative for any pertinent positives and negatives. OBJECTIVE: GENERAL: Arnie Infante is a pleasant 89-year-old male. VITAL SIGNS: TPR is 97.4, 92, 16. Blood pressure 113/67. HEENT: Negative. NECK: Supple. HEART: Regular rate and rhythm. LUNGS: Clear. ABDOMEN: Soft, nontender. ASSESSMENT: Gastrointestinal bleed, congestive heart failure. PLAN: Orders to be written after colonoscopy. He remains to be n.p.o. until after procedure. We will evaluate p.r.n. or in a.m. Tisha Crocker PA-C /[id number]
--- NOTE | 2020-06-03 10:03 | PCM.PN ---
- General Info Date of Service: 06/03/20 Subjective Update: Mr. Infante has remained stable since yesterday with no further evidence of active bleeding. Hemoglobin has remained stable since yesterday. Colonoscopy pending later this morning. Functional Status: Reports: Urinating - Review of Systems General: Reports: Weakness, Fatigue. Denies: Fever, Chills Pulmonary: Reports: No Symptoms Cardiovascular: Reports: No Symptoms Gastrointestinal: Reports: No Symptoms - Patient Data Vitals - Most Recent: Last Vital Signs Temp 98.1 F 06/03/20 07:00 Pulse 102 H 06/03/20 07:00 Resp 18 06/03/20 07:00 BP 129/74 06/03/20 07:00 Pulse Ox 95 06/03/20 07:00 Weight - Most Recent: 228 lb 6.382 oz I&O - Last 24 Hours: Intake & Output 06/02/20 06/03/20 06/03/20 22:59 06:59 14:59 Intake Total 450 Output Total 1 Balance 449 Lab Results Last 24 Hours: Laboratory Results - last 24 hr 06/02/20 06/03/20 06/03/20 Range/Units 17:00 05:29 05:29 Hgb 8.7 L 9.1 L (12.0-15.0) g/dL Sodium 142 (140-148) mmol/L Potassium 4.4 (3.6-5.2) mmol/L Chloride 106 (100-108) mmol/L Carbon Dioxide 31 (21-32) mmol/L Anion Gap 4.8 L (5.0-14.0) mmol/L BUN 10 (7-18) mg/dL Creatinine 0.8 (0.8-1.3) mg/dL Est Cr Clr Drug Dosing 63.17 mL/min Estimated GFR (MDRD) > 60 (>60) Glucose 86 (74-106) mg/dL Calcium 9.1 (8.5-10.1) mg/dL Brock Results Last 24 Hours: Microbiology 06/02/20 07:24 CLOtest - Final Stomach NEGATIVE CLOTEST REFERENCE RANGE: NEGATIVE Med Orders - Current: Current Medications Acetaminophen (Tylenol) 650 mg PO Q4H PRN PRN Reason: Pain (Mild 1-3)/fever Last Admin: 06/02/20 13:48 Dose: 650 mg Documented by: Albuterol (Proventil Neb Soln) 2.5 mg NEB Q4H PRN PRN Reason: Shortness Of Breath/wheezing Lactated Ringer's (Ringers, Lactated) 1,000 mls @ 75 mls/hr IV ASDIRECTED [facility] Last Admin: 06/03/20 08:31 Dose: 75 mls/hr Documented by: Lorazepam (Ativan) 0.5 mg IVPUSH Q4H PRN PRN Reason: Nausea/Vomiting Magnesium Oxide (Magnesium Oxide) 400 mg PO BID [facility] Last Admin: 06/02/20 21:41 Dose: 400 mg Documented by: Melatonin (Melatonin) 9 mg PO BEDTIME [facility] Last Admin: 06/02/20 21:41 Dose: 9 mg Documented by: Metoprolol Tartrate (Lopressor) 12.5 mg PO Q12H [facility] Last Admin: 06/02/20 21:41 Dose: 12.5 mg Documented by: Multivitamins/Minerals (Thera M Plus) 1 tab PO DAILY [facility] Last Admin: 06/02/20 09:40 Dose: 1 tab Documented by: Ondansetron HCl (Zofran) 4 mg IV Q6H PRN PRN Reason: Nausea/Vomiting Ondansetron HCl (Zofran Odt) 4 mg PO Q6H PRN PRN Reason: Nausea able to take PO Last Admin: 06/03/20 08:31 Dose: 4 mg Documented by: Pantoprazole Sodium (Protonix Iv) 40 mg IVPUSH Q12H [facility] Last Admin: 06/02/20 23:21 Dose: 40 mg Documented by: Potassium Chloride (Klor-Con M20) 40 meq PO DAILY [facility] Last Admin: 06/02/20 09:43 Dose: 40 meq Documented by: Propafenone HCl (Rythmol) 225 mg PO DAILY [facility] Last Admin: 06/02/20 09:41 Dose: 225 mg Documented by: Simvastatin (Zocor) 20 mg PO BEDTIME [facility] Last Admin: 06/02/20 21:41 Dose: 20 mg Documented by: Sodium Chloride (Saline Flush) 10 ml FLUSH ASDIRECTED PRN PRN Reason: Keep Vein Open Last Admin: 05/30/20 17:45 Dose: 10 ml Documented by: Discontinued Medications Apixaban (Eliquis) 5 mg PO BID [facility] Last Admin: 05/31/20 20:29 Dose: 5 mg Documented by: Apixaban (Eliquis) Confirm Administered Dose 5 mg .ROUTE .STK-MED ONE Stop: 05/30/20 21:08 Last Admin: 05/30/20 21:22 Dose: Not Given Documented by: Bisacodyl (Dulcolax) 10 mg PO ONETIME ONE Stop: 06/01/20 11:01 Last Admin: 06/01/20 12:36 Dose: 10 mg Documented by: Bisacodyl (Dulcolax) 10 mg PO ONETIME ONE Stop: 06/01/20 20:01 Last Admin: 06/01/20 20:21 Dose: 10 mg Documented by: Bisacodyl (Dulcolax) 10 mg PO ONETIME ONE Stop: 06/02/20 09:01 Last Admin: 06/02/20 09:45 Dose: 10 mg Documented by: Bisacodyl (Dulcolax) 10 mg PO ONETIME ONE Stop: 06/02/20 20:01 Last Admin: 06/02/20 21:41 Dose: Not Given Documented by: Fentanyl (Sublimaze) Confirm Administered Dose 100 mcg .ROUTE .STK-MED ONE Stop: 06/02/20 07:05 Fentanyl (Sublimaze) Confirm Administered Dose 100 mcg .ROUTE .STK-MED ONE Stop: 06/03/20 09:33 Furosemide (Lasix) 40 mg IVPUSH ONETIME ONE Stop: 05/30/20 18:36 Last Admin: 05/30/20 18:42 Dose: 40 mg Documented by: Furosemide (Lasix) 40 mg IVPUSH DAILY [facility] Stop: 05/31/20 09:01 Last Admin: 05/31/20 08:47 Dose: 40 mg Documented by: Furosemide (Lasix) 40 mg IVPUSH NOW ONE Stop: 05/31/20 21:01 Last Admin: 05/31/20 20:30 Dose: 40 mg Documented by: Magnesium Sulfate (Magnesium Sulfate In Water 2 Gm/50 Ml) 2 gm in 50 mls @ 12.5 mls/hr IV Q6H [facility] Stop: 06/01/20 18:59 Last Admin: 06/01/20 15:08 Dose: 12.5 mls/hr Documented by: Potassium Chloride 20 meq/Lidocaine HCl 2 ml/ Sodium Chloride 112 mls @ 56 mls/hr IV Q2H [facility] Stop: 06/01/20 13:59 Last Admin: 06/01/20 13:28 Dose: 56 mls/hr Documented by: Dextrose/Lactated Ringer's (Dextrose 5%-Lactated Ringers) 1,000 mls @ 100 mls/hr IV ASDIRECTED [facility] Last Admin: 06/02/20 04:16 Dose: 100 mls/hr Documented by: Polyethylene Glycol (Miralax) 238 gm PO ONETIME ONE Stop: 06/01/20 17:01 Last Admin: 06/01/20 16:40 Dose: 238 gm Documented by: Polyethylene Glycol (Miralax) 238 gm PO ONETIME ONE Stop: 06/02/20 17:01 Last Admin: 06/02/20 16:56 Dose: 238 gm Documented by: Potassium Chloride (Klor-Con M20) 40 meq PO ONETIME ONE Stop: 05/30/20 19:39 Last Admin: 05/30/20 21:18 Dose: 40 meq Documented by: Potassium Chloride (Klor-Con M20) 40 meq PO ONETIME ONE Stop: 06/01/20 12:01 Last Admin: 06/01/20 12:36 Dose: 40 meq Documented by: Propofol (Diprivan 20 Ml) Confirm Administered Dose 200 mg .ROUTE .STK-MED ONE Stop: 06/02/20 07:05 Propofol (Diprivan 20 Ml) Confirm Administered Dose 200 mg .ROUTE .STK-MED ONE Stop: 06/03/20 09:33 Sodium Chloride (Saline Flush) 10 ml FLUSH ASDIRECTED PRN PRN Reason: Keep Vein Open Last Admin: 05/30/20 17:45 Dose: 10 ml Documented by: - Exam Quality Assessment: DVT Prophylaxis General: Alert, Oriented, Cooperative, Mild Distress Lungs: Clear to Auscultation, Normal Respiratory Effort, Decreased Breath Sounds Cardiovascular: Regular Rate, No Murmurs, Irregular Rhythm GI/Abdominal Exam: Soft, Non-Tender, No Organomegaly, No Distention Extremities: Non-Tender, Pedal Edema - Patient Data Lab Results Last 24 hrs: Laboratory Results - last 24 hr 06/02/20 06/03/20 06/03/20 Range/Units 17:00 05:29 05:29 Hgb 8.7 L 9.1 L (12.0-15.0) g/dL Sodium 142 (140-148) mmol/L Potassium 4.4 (3.6-5.2) mmol/L Chloride 106 (100-108) mmol/L Carbon Dioxide 31 (21-32) mmol/L Anion Gap 4.8 L (5.0-14.0) mmol/L BUN 10 (7-18) mg/dL Creatinine 0.8 (0.8-1.3) mg/dL Est Cr Clr Drug Dosing 63.17 mL/min Estimated GFR (MDRD) > 60 (>60) Glucose 86 (74-106) mg/dL Calcium 9.1 (8.5-10.1) mg/dL Result Diagrams: 06/03/20 05:29 06/03/20 05:29 Brock Results Last 24 hrs: Microbiology 06/02/20 07:24 CLOtest - Final Stomach NEGATIVE CLOTEST REFERENCE RANGE: NEGATIVE Sepsis Event Note - Evaluation Sepsis Screening Result: No Definite Risk - Focused Exam Vital Signs: Vital Signs Temp Pulse Resp BP Pulse Ox 06/03/20 07:00 98.1 F 102 H 18 129/74 95 06/03/20 03:00 97.4 F 92 16 113/67 94 L 06/02/20 23:00 96.2 F L 83 16 111/86 98 - Problem List Review Problem List Initiated/Reviewed/Updated: Yes - My Orders Last 24 Hours: My Active Orders 06/02/20 11:14 Convert IV to Saline Lock [OM.PC] Routine 06/02/20 11:30 Pantoprazole [ProTONIX IV] 40 mg IVPUSH Q12H 06/03/20 00:01 Lactated Ringers [Ringers, Lactated] 1,000 ml IV ASDIRECTED 06/04/20 05:00 BASIC METABOLIC PANEL,BMP [CHEM] Timed 06/04/20 05:11 HGB [HEMOGLOBIN] [HEME] AM - Plan Plan:: ASSESSMENT AND PLAN - Subacute exacerbation of congestive heart failure-several weeks of progressive swelling and increasing dyspnea. Preliminary report from echocardiogram shows hyperdynamic left ventricular function. Diuresis so far with improvement in peripheral edema, level of dyspnea has improved -Doing diuresis after colonoscopy -Wrap both lower legs with Pan wraps to help with mechanical fluid removal -Daily weights GI bleed-stable since yesterday with no further evidence of active bleeding. Colonoscopy could not be performed because of incomplete prep. EGD did show evidence of diffuse gastritis, probable source of recent bleed -Hold apixaban -Type and cross to hold 2 units of red blood cells -colonoscopy today -Protonix 40 mg IV every 12 hours Atrial fibrillation with rapid ventricular response-rate currently under good control -low-dose beta-donya for rate control -Hold apixaban because of GI bleed Anemia-secondary to GI bleed Generalized weakness-probably result of the progressive congestive heart failure with possible contribution from the atrial fibrillation. -Physical therapy in the morning -Additional management as above Maintenance issues - - DVT prophylaxis -anticoagulation on hold because of active bleeding - GI prophylaxis -tonics as above - Nutrition -clear liquid diet - Gan catheter -removed today CODE STATUS -full code Admission justification -this patient will be admitted for inpatient services and is medically appropriate meeting medical necessity for inpatient admission as outlined in my documentation. I reasonably expect the patient will require inpatient services that span a period time over 2 midnights. I reasonably expect this patient to be discharged or transferred within 96 hours [facility] Disposition -I would anticipate discharge home with home care versus possibly subacute rehab Primary care physician -
[2020-06-03] MEDS ORDERED: Sodium Chloride 0.9% 10 ML Syringe FLUSH ONE (12:26)
[2020-06-03] MEDS ORDERED: Sodium Chloride 0.9% 100 ML IV SCH (12:30)
[2020-06-03] MEDS ORDERED: Iopamidol 612 MG/ML 100 ML Bottle IV SCH (12:30)
[2020-06-03] MEDS: Magnesium Oxide 400 MG Tab PO SCH ×2 (14:35→20:51)
[2020-06-03] MEDS: Multivitamins with Iron/Calcium/Folic Acid/Minerals Tab PO SCH (14:35)
[2020-06-03] MEDS: Potassium Chloride 20 MEQ Tab.ER PO SCH (14:35)
[2020-06-03] MEDS: Metoprolol Tartrate 25 MG Tab PO SCH ×2 (15:09→20:51)
[2020-06-03] MEDS: Pantoprazole 40 MG Vial IVPUSH SCH (15:10)
[2020-06-03] MEDS: Simvastatin 20 MG Tab PO SCH (20:52)
[2020-06-03] MEDS: Melatonin 3 MG Tab PO SCH (20:52)
[2020-06-04] MEDS: Pantoprazole 40 MG Vial IVPUSH SCH ×2 (00:16→11:28)
--- NOTE | 2020-06-04 08:20 | PN ---
DATE OF SERVICE: 06/04/2020 SUBJECTIVE: Arnie had a colonoscopy yesterday, which did reveal a rectal mass. He has had no fever. His oral intake after the colonoscopy was 1450. He has had some incontinent BMs. Hemoglobin this morning is 9.4. Denies any abdominal pain. REVIEW OF SYSTEMS: Remainder of review of systems negative for any pertinent positives and negatives. OBJECTIVE: GENERAL: Arnie Infante is a pleasant 89-year-old male. He is sitting up in the chair. Alert and oriented. VITAL SIGNS: TPR 96.1, 92, 16, blood pressure 125/81. HEENT: Negative. NECK: Supple. HEART: Regular rate and rhythm. LUNGS: Clear. ABDOMEN: Negative. EXTREMITIES: Negative. ASSESSMENT: 1. Rectal mass. 2. Gastrointestinal bleed. 3. Congestive heart failure. PLAN: 1. Family will be meeting with Yovani Fernandez MD, Hospitalist, in the near future. 2. We will evaluate p.r.n. or in a.m. Tisha Crocker PA-C /[id number]
[2020-06-04] MEDS: Potassium Chloride 20 MEQ Tab.ER PO SCH (09:15)
[2020-06-04] MEDS: Magnesium Oxide 400 MG Tab PO SCH (09:15)
[2020-06-04] MEDS: Multivitamins with Iron/Calcium/Folic Acid/Minerals Tab PO SCH (09:16)
[2020-06-04] MEDS: Metoprolol Tartrate 25 MG Tab PO SCH (09:17)
--- NOTE | 2020-06-04 09:25 | CT ---
Chest Abdomen Pelvis w Cont CLINICAL HISTORY: Rectal carcinoma TECHNIQUE: Transverse scans were obtained from the thoracic inlet to the lung bases with IV contrast. Auto dose reduction and iterative reconstruction techniques were employed COMPARISONS: 05/28/2020 FINDINGS: There is some motion artifact. Lung window images show large bilateral pleural effusions which have increased since the prior study. There is some compressive atelectasis throughout both lung alexander posteriorly. There is some diffuse groundglass opacification. There is a 4 mm noncalcified pulmonary nodule in the left upper lobe on image #52.. Soft tissue window images show multiple nodules in both lobes of the thyroid. No mediastinal mass or suspicious lymphadenopathy is identified. CT ABDOMEN AND PEVIS WITH IV CONTRAST COMPARISON: None TECHNIQUE: Axial tomographic images are obtained from the dome of the diaphragm to the iliac crest with IV contrast enhancement. Oral contrast was used. FINDINGS: The livershows no mass or biliary dilatation. The gallbladder has a normal appearance. The spleen has a normal size and shape. The pancreas shows some atrophic changes. The adrenal glands appear normal bilaterally. The kidneys contain multiple cysts bilaterally largest on the right measures 3.8 x 3.6 cm. Largest on the left measures 5.3 x 4.5 cm. There is some mild perinephric stranding bilaterally which may be chronic. The ureters have a normal course and caliber. The bladder has normal wall contour. There is a large prostatic impression inferiorly. There is moderate atheromatous change in the aorta without aneurysm. Iliac arteries are moderately tortuous and calcified. Abdominal pelvic fat planes and low pelvic side nichols are fairly well demarcated. The small intestinal configuration is nonacute. There is gas throughout the colon. There is diverticulosis without evidence of diverticulitis. There is some soft tissue fullness on the left and posteriorly at the lower rectum. Scans do not to go completely through the lower rectum or beyond there is a fat-containing small left inguinal hernia. There is some generalized edema throughout the subcutaneous tissues. Some element of anasarca is not excluded. There is no significant ascites. In the right lower quadrant near the internal ring there is a 2.3 x 2.5 cm low-attenuation focus. This measures high for simple fluid. Lymph node is not excluded. IMPRESSION: Large bilateral pleural effusions causing some compressive atelectasis both lungs. Persistent diffuse groundglass opacities in the upper lobes. This may be related to pneumonitis or some interstitial edema. Numerous nodules in the thyroid gland. Moderate soft tissue fullness in the low rectum be more prominent posteriorly and to the left. Patient history is recently diagnosed rectal carcinoma. Scans did not pass completely through the rectum or past the anal verge. 2.3 x 2.5 cm low-attenuation focus in the right lower quadrant near the right internal inguinal ring. This may represent a small fluid collection though this measures somewhat high. A prominent lymph node is not excluded. Diverticulosis without evidence diverticulitis Bilateral renal cysts Generalized subcutaneous edema with large effusions may represent some element of anasarca or some chronic low-grade CHF
[2020-06-04 11:57] VITALS: BP 115/73; PULSE 92
--- NOTE | 2020-06-04 12:03 | PCM.DCSUM1 ---
Discharge Summary - Hospital Course Brief History: Mr. Infante is an 89-year-old gentleman who was admitted through the emergency department with progressive weakness, peripheral edema, and shortness of breath secondary to congestive heart failure exacerbation. - Discharge Data Discharge Date: 06/04/20 Discharge Disposition: DC/Tfer to SNF 03 Condition: Stable - Referral to Home Health Primary Care Physician: Jake Reyes NP - Discharge Diagnosis/Problem(s) (1) Acute blood loss anemia SNOMED Code(s): 465587420 ICD Code: D62 - ACUTE POSTHEMORRHAGIC ANEMIA Status: Acute Current Visit: Yes (2) Rectal carcinoma SNOMED Code(s): 137716378, 643283395 ICD Code: C20 - MALIGNANT NEOPLASM OF RECTUM Status: Acute Current Visit: Yes (3) Dehydration SNOMED Code(s): 40732336 ICD Code: E86.0 - DEHYDRATION Status: Acute Current Visit: No (4) CHF exacerbation SNOMED Code(s): 139185215, 60811750461562 ICD Code: I50.9 - HEART FAILURE, UNSPECIFIED Status: Acute Current Visit: Yes Qualifiers: Heart failure type: unspecified Qualified Code(s): I50.9 - Heart failure, unspecified (5) Hypoxia SNOMED Code(s): 445832257 ICD Code: R09.02 - HYPOXEMIA Status: Acute Current Visit: No (6) Weakness generalized SNOMED Code(s): 97984436 ICD Code: R53.1 - WEAKNESS Status: Acute Current Visit: No (7) History of atrial fibrillation SNOMED Code(s): 537757505 ICD Code: Z86.79 - PERSONAL HISTORY OF OTHER DISEASES OF THE CIRCULATORY SYSTEM Status: Chronic Current Visit: No (8) Aortic stenosis, severe SNOMED Code(s): 424445903 ICD Code: I35.0 - NONRHEUMATIC AORTIC (VALVE) STENOSIS Status: Acute Current Visit: Yes - Patient Summary/Data Consults: Consultations 05/31/20 07:00 PT Evaluation and Treatment [CONS] Routine Please Evaluate and Treat. PT Reason for Consult: Strengthening This query below is only for informational purposes and is not editable. 06/01/20 10:22 Consult to Physician [CONS] Routine Consulting Provider: Mohsen Duggan Courtesy Call Completed to Consulting Physician: Yes Reason for Consult: GI Bleed, EGD and Colonoscopy in Hospital Course: Mr. Infante presented to the emergency room with progressive weakness as well as swelling of both lower extremities and his left upper extremity. He reports a slow but steady progression over the past few weeks. He is to the point now that he is having difficulty getting up out of the chair. He has had a couple of falls at home. He reports dyspnea with even minimal exertion at this time. Work-up in the emergency room revealed congestive heart failure with significant lower extremity edema as well as left upper extremity edema. Chest x-ray shows bilateral pleural effusions. He does not have a history of congestive heart failure. He was admitted for further work-up and management. On admission and during the first portion of his hospital stay he received regular diuretic therapy and did experience fair diuresis with improvement in his peripheral edema and shortness of breath. Initially on admission heart rate was elevated associated with his atrial fibrillation. He was started on metoprolol 12.5 mg twice daily and heart rate came under good control with this medication. Echocardiogram was obtained and showed preserved left ventricular systolic function, preserved right ventricular function, right ventricular enlargement as well as biatrial enlargement. There was evidence of aortic stenosis which was felt to be severe. During his hospital stay he developed red blood per rectum. There were also episodes of more dark stool. EGD was performed which did show evidence to diffuse gastritis and was felt to represent a possible source of bleeding. Colonoscopy was obtained and unfortunately showed evidence of a rectal mass consistent with a malignancy. CT scan of the chest abdomen pelvis was done which did also show evidence of a rectal mass, there was no evidence of significant metastatic disease. He remained fairly weak throughout his hospital stay and will require detention placement for restorative physical therapy and Occupational Therapy. I discussed all of these findings with the patient and family. Because of his weakness at the present time I do not think he would be a good candidate to consider chemotherapy or radiation as well as surgery at this time. If he is able to regain strength could consider further oncology evaluation to determine recommendations concerning management and treatment. He will be discharged to detention on diuretic therapy twice daily. He had been treated with Eliquis for management of his atrial fibrillation, with GI bleeding and discovery of malignancy the Eliquis has been held during hospital stay and at the time of discharge. Activity will be as tolerated and he will resume his usual diet. Daily physical therapy and Occupational Therapy will be ordered for him at the detention. Follow-up labs including a BMP and CBC should be obtained on June 08. Follow-up appointment with primary care will be scheduled within 1 week. Follow-up appointment with Dr. Duggan will be scheduled for June 16. - Patient Instructions Diet: Low Sodium Activity: As Tolerated Other/Special Instructions: Daily physical therapy and Occupational Therapy while at the detention. Please obtain BMP and CBC on August 08. Follow-up with primary care within 1 week. Schedule follow-up appointment with Dr. Duggan for June 16. - Discharge Plan *PRESCRIPTION DRUG MONITORING PROGRAM REVIEWED*: Not Applicable *COPY OF PRESCRIPTION DRUG MONITORING REPORT IN PATIENT TYLER: Not Applicable Prescriptions/Med Rec: Bumetanide [Bumex] 2 mg PO BID #60 tab Potassium Chloride [Klor-Con M20] 40 meq PO DAILY #60 tab.er Metoprolol Tartrate [Lopressor] 12.5 mg PO Q12H #30 tablet Magnesium Oxide 400 mg PO BID #60 tablet Pantoprazole Sodium [Protonix] 40 mg PO BID #30 tablet. Home Medications: Home Meds Propafenone [Rythmol] 225 mg PO DAILY 02/17/13 [History] Simvastatin [Zocor] 20 mg PO DAILY 02/17/13 [History] Ferrous Sulfate [Feosol] 325 mg PO DAILY 03/05/20 [History] Multivit-Min/FA/Lycopen/Lutein [Centrum Silver Men Tablet] 1 each PO DAILY 03/05/20 [History] Areds 2 1 cap PO DAILY 05/30/20 [History] Furosemide [Lasix] 20 mg PO DAILY 05/30/20 [History] Bumetanide [Bumex] 2 mg PO BID #60 tab 06/04/20 [Rx] Magnesium Oxide 400 mg PO BID #60 tablet 06/04/20 [Rx] Metoprolol Tartrate [Lopressor] 12.5 mg PO Q12H #30 tablet 06/04/20 [Rx] Pantoprazole Sodium [Protonix] 40 mg PO BID #30 tablet. 06/04/20 [Rx] Potassium Chloride [Klor-Con M20] 40 meq PO DAILY #60 tab.er 06/04/20 [Rx] - Discharge Summary/Plan Comment DC Time >30 min.: No - Patient Data Vitals - Most Recent: Last Vital Signs Temp 96.4 F L 06/04/20 07:47 Pulse 87 06/04/20 09:17 Resp 16 06/04/20 07:47 BP 123/72 06/04/20 09:17 Pulse Ox 94 L 06/04/20 07:47 Weight - Most Recent: 229 lb 11.547 oz I&O - Last 24 hours: Intake & Output 06/03/20 06/04/20 06/04/20 22:59 06:59 14:59 Intake Total 600 470 Output Total 100 Balance 600 370 Lab Results - Last 24 hrs: Laboratory Results - last 24 hr 06/04/20 06/04/20 Range/Units 05:18 05:18 Hgb 9.4 L (12.0-15.0) g/dL Sodium 141 (140-148) mmol/L Potassium 4.6 (3.6-5.2) mmol/L Chloride 104 (100-108) mmol/L Carbon Dioxide 31 (21-32) mmol/L Anion Gap 6.4 (5.0-14.0) mmol/L BUN 14 (7-18) mg/dL Creatinine 1.1 (0.8-1.3) mg/dL Est Cr Clr Drug Dosing 45.94 mL/min Estimated GFR (MDRD) > 60 (>60) Glucose 115 H (74-106) mg/dL Calcium 9.1 (8.5-10.1) mg/dL PETE Results - Last 24 hrs: Microbiology 06/02/20 07:24 CLOtest - Final Stomach NEGATIVE CLOTEST REFERENCE RANGE: NEGATIVE Med Orders - Current: Current Medications Acetaminophen (Tylenol) 650 mg PO Q4H PRN PRN Reason: Pain (Mild 1-3)/fever Last Admin: 06/02/20 13:48 Dose: 650 mg Documented by: Albuterol (Proventil Neb Soln) 2.5 mg NEB Q4H PRN PRN Reason: Shortness Of Breath/wheezing Lorazepam (Ativan) 0.5 mg IVPUSH Q4H PRN PRN Reason: Nausea/Vomiting Magnesium Oxide (Magnesium Oxide) 400 mg PO BID [facility] Last Admin: 06/04/20 09:15 Dose: 400 mg Documented by: Melatonin (Melatonin) 9 mg PO BEDTIME [facility] Last Admin: 06/03/20 20:52 Dose: 9 mg Documented by: Metoprolol Tartrate (Lopressor) 12.5 mg PO Q12H [facility] Last Admin: 06/04/20 09:17 Dose: 12.5 mg Documented by: Multivitamins/Minerals (Thera M Plus) 1 tab PO DAILY [facility] Last Admin: 06/04/20 09:16 Dose: 1 tab Documented by: Ondansetron HCl (Zofran) 4 mg IV Q6H PRN PRN Reason: Nausea/Vomiting Ondansetron HCl (Zofran Odt) 4 mg PO Q6H PRN PRN Reason: Nausea able to take PO Last Admin: 06/03/20 08:31 Dose: 4 mg Documented by: Pantoprazole Sodium (Protonix Iv) 40 mg IVPUSH Q12H [facility] Last Admin: 06/04/20 11:28 Dose: 40 mg Documented by: Potassium Chloride (Klor-Con M20) 40 meq PO DAILY [facility] Last Admin: 06/04/20 09:15 Dose: 40 meq Documented by: Propafenone HCl (Rythmol) 225 mg PO DAILY [facility] Last Admin: 06/04/20 09:16 Dose: 225 mg Documented by: Simvastatin (Zocor) 20 mg PO BEDTIME [facility] Last Admin: 06/03/20 20:52 Dose: 20 mg Documented by: Sodium Chloride (Saline Flush) 10 ml FLUSH ASDIRECTED PRN PRN Reason: Keep Vein Open Last Admin: 05/30/20 17:45 Dose: 10 ml Documented by: Discontinued Medications Apixaban (Eliquis) 5 mg PO BID [facility] Last Admin: 05/31/20 20:29 Dose: 5 mg Documented by: Apixaban (Eliquis) Confirm Administered Dose 5 mg .ROUTE .STK-MED ONE Stop: 05/30/20 21:08 Last Admin: 05/30/20 21:22 Dose: Not Given Documented by: Bisacodyl (Dulcolax) 10 mg PO ONETIME ONE Stop: 06/01/20 11:01 Last Admin: 06/01/20 12:36 Dose: 10 mg Documented by: Bisacodyl (Dulcolax) 10 mg PO ONETIME ONE Stop: 06/01/20 20:01 Last Admin: 06/01/20 20:21 Dose: 10 mg Documented by: Bisacodyl (Dulcolax) 10 mg PO ONETIME ONE Stop: 06/02/20 09:01 Last Admin: 06/02/20 09:45 Dose: 10 mg Documented by: Bisacodyl (Dulcolax) 10 mg PO ONETIME ONE Stop: 06/02/20 20:01 Last Admin: 06/02/20 21:41 Dose: Not Given Documented by: Fentanyl (Sublimaze) Confirm Administered Dose 100 mcg .ROUTE .STK-MED ONE Stop: 06/02/20 07:05 Fentanyl (Sublimaze) Confirm Administered Dose 100 mcg .ROUTE .STK-MED ONE Stop: 06/03/20 09:33 Furosemide (Lasix) 40 mg IVPUSH ONETIME ONE Stop: 05/30/20 18:36 Last Admin: 05/30/20 18:42 Dose: 40 mg Documented by: Furosemide (Lasix) 40 mg IVPUSH DAILY [facility] Stop: 05/31/20 09:01 Last Admin: 05/31/20 08:47 Dose: 40 mg Documented by: Furosemide (Lasix) 40 mg IVPUSH NOW ONE Stop: 05/31/20 21:01 Last Admin: 05/31/20 20:30 Dose: 40 mg Documented by: Magnesium Sulfate (Magnesium Sulfate In Water 2 Gm/50 Ml) 2 gm in 50 mls @ 12.5 mls/hr IV Q6H [facility] Stop: 06/01/20 18:59 Last Admin: 06/01/20 15:08 Dose: 12.5 mls/hr Documented by: Potassium Chloride 20 meq/Lidocaine HCl 2 ml/ Sodium Chloride 112 mls @ 56 mls/hr IV Q2H [facility] Stop: 06/01/20 13:59 Last Admin: 06/01/20 13:28 Dose: 56 mls/hr Documented by: Dextrose/Lactated Ringer's (Dextrose 5%-Lactated Ringers) 1,000 mls @ 100 mls/hr IV ASDIRECTED [facility] Last Admin: 06/02/20 04:16 Dose: 100 mls/hr Documented by: Lactated Ringer's (Ringers, Lactated) 1,000 mls @ 75 mls/hr IV ASDIRECTED [facility] Last Admin: 06/03/20 08:31 Dose: 75 mls/hr Documented by: Sodium Chloride (Normal Saline) 100 mls @ 3 mls/sec IV ASDIRECTED MARCELO Stop: 06/03/20 12:31 Last Admin: 06/03/20 12:46 Dose: 3 mls/sec Documented by: Iopamidol (Isovue-300 (61%)) 100 ml IV . DIRECTED MARCELO Stop: 06/03/20 12:31 Last Admin: 06/03/20 12:46 Dose: 100 ml Documented by: Polyethylene Glycol (Miralax) 238 gm PO ONETIME ONE Stop: 06/01/20 17:01 Last Admin: 06/01/20 16:40 Dose: 238 gm Documented by: Polyethylene Glycol (Miralax) 238 gm PO ONETIME ONE Stop: 06/02/20 17:01 Last Admin: 06/02/20 16:56 Dose: 238 gm Documented by: Potassium Chloride (Klor-Con M20) 40 meq PO ONETIME ONE Stop: 05/30/20 19:39 Last Admin: 05/30/20 21:18 Dose: 40 meq Documented by: Potassium Chloride (Klor-Con M20) 40 meq PO ONETIME ONE Stop: 06/01/20 12:01 Last Admin: 06/01/20 12:36 Dose: 40 meq Documented by: Propofol (Diprivan 20 Ml) Confirm Administered Dose 200 mg .ROUTE .STK-MED ONE Stop: 06/02/20 07:05 Propofol (Diprivan 20 Ml) Confirm Administered Dose 200 mg .ROUTE .STK-MED ONE Stop: 06/03/20 09:33 Sodium Chloride (Saline Flush) 10 ml FLUSH ASDIRECTED PRN PRN Reason: Keep Vein Open Last Admin: 05/30/20 17:45 Dose: 10 ml Documented by: Sodium Chloride (Saline Flush) 10 ml FLUSH ONETIME ONE Stop: 06/03/20 12:27 Last Admin: 06/03/20 12:46 Dose: 10 ml Documented by: - Exam Quality Assessment: Reports: Supplemental Oxygen, DVT Prophylaxis General: Reports: Alert, Oriented, Cooperative, No Acute Distress Lungs: Reports: Clear to Auscultation, Normal Respiratory Effort Cardiovascular: Reports: Regular Rate, Regular Rhythm, Murmurs GI/Abdominal Exam: Soft, Non-Tender, No Organomegaly, No Distention Extremities: Non-Tender, Pedal Edema
--- NOTE | 2020-06-06 10:33 | OR ---
DATE OF PROCEDURE: 06/02/2020 SURGEON: Mohsen Duggan MD PREOPERATIVE DIAGNOSES: Anemia with rectal bleeding. POSTOPERATIVE DIAGNOSES: 1. Diffuse gastritis with possible and definite recent possible bleeding sources within the stomach. 2. Inadequate colon prep. OPERATIVE PROCEDURE: Esophagogastroduodenoscopy with antral biopsies for CLOtest. ANESTHESIA: IV sedation. INDICATIONS FOR PROCEDURE: An 89-year-old male presenting with some anemia and some obvious ongoing rectal bleeding. The plan is to proceed with upper and lower endoscopy. Potential risks including bleeding and perforation were discussed, and the patient wishes to proceed. DETAILS OF PROCEDURE: The patient was taken to the operating room and placed in a left lateral decubitus position. IV sedation was administered after which the upper GI endoscope was passed orally through the length of the esophagus and into the stomach with retroflexion view of the fundus, thereafter through the pyloric channel and into the proximal duodenum. Findings included normal hypopharynx, larynx, upper esophageal sphincter, and esophageal body. EG junction had no significant inflammation. Small hiatal hernia was present within the stomach. There was more or less mild diffuse gastritis more prominent in the body. There were no sharif erosions or ulcers, but overall appearance would be certainly suggestive of possible recent bleeding with some erosions now having been healed. The pyloric channel and the duodenal junction of the 3rd and 4th portions were unremarkable. At this point, biopsies were obtained from the antrum and sent for the CLOtest for H pylori. Minimal bleeding from the biopsy site was seen, and the procedure was then concluded. Upon removal of the patient's briefs, the patient obviously also had some muddy stool coming from the rectal area, and it was felt that an adequate colonoscopy could not be completed. Given this, we will finish the colonoscopy prep today and proceed with a repeat attempted colonoscopy tomorrow. Mohsen Duggan MD /[id number]
--- NOTE | 2020-06-06 14:08 | OR ---
DATE OF PROCEDURE: 06/03/2020 SURGEON: Mohsen Duggan MD PREOPERATIVE DIAGNOSIS: Gastrointestinal bleeding. POSTOPERATIVE DIAGNOSES: 1. 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 2. Separate polyp involving the ascending, transverse, and sigmoid colon. OPERATIVE PROCEDURE: Flexible colonoscopy with: 1. Biopsies of rectal mass (36141). 2. Polypectomy of polyps involving ascending, transverse, and sigmoid colon (60190). ANESTHESIA: IV sedation. INDICATIONS FOR PROCEDURE: The patient was admitted with some anemia and significant GI bleeding. The plan is to proceed with a flexible colonoscopy. The prep yesterday was inadequate. Nurses reported today that prep probably will be satisfactory. Plan is to proceed with a colonoscopy with biopsies and/or polypectomy as indicated. Potential risks of the procedure were reviewed, and the patient wishes to proceed. DETAILS OF PROCEDURE: The patient was taken to the operating room and placed in a left lateral decubitus position. IV sedation was administered after which the initial digital rectal exam revealed a large rectal mass, and this began more or less at the anal verge and extended several centimeters up into the rectum consistent with a rectal adenocarcinoma. It was nearly circumferential or perhaps even completely circumferential with bulk of the tumor being more around the left and posterior aspects of the lowermost rectum. The colonoscope was then passed into the rectum and was able to be passed through the lumen at the level of tumor and eventually passed to the level of the cecum. The prep was fairly good with only small amount of liquid stool present. There were no diverticula or areas of colitis. There were 3 separate areas of polyp formation with polyps ranging between 0.5 cm to 1 cm. These were located in the ascending, transverse, and sigmoid colon and each of these were excised by means of cautery snare technique and delivered from the field individually and sent for histologic evaluation. Following this, the scope was brought down to the rectal mass. Multiple biopsies were obtained to confirm the histologic nature of the mass. Minimal bleeding from the biopsy sites was seen, and the procedure was then concluded. The patient was taken to the recovery room in satisfactory condition. The patient's hospitalist, Dr. Fernandez, was notified of the results as well as the patient and his subsequently. We will obtain a CT scan of the chest, abdomen, and pelvis today with IV contrast to determine if there is any metastatic disease at this point. Mohsen Duggan MD /[id number]
== END 2020-06-04 16:30 | DRG 291 ==
LOC: JP.ED 16:17 → JP.MS 18:37
PROVIDERS: ADMIT Internal Medicine; ATTEND Hospitalist
PROC: 30233N1 Transfusion of Nonautologous Red Blood Cells into Peripheral Vein, Percutaneous Approach (ICD-10-PCS; principal; 2020-06-01)
PROC: 0DB68ZX Excision of Stomach, Via Natural or Artificial Opening Endoscopic, Diagnostic (ICD-10-PCS; 2020-06-02)
PROC: 0DBP8ZX Excision of Rectum, Via Natural or Artificial Opening Endoscopic, Diagnostic (ICD-10-PCS; 2020-06-03)
PROC: 0DBK8ZZ Excision of Ascending Colon, Via Natural or Artificial Opening Endoscopic (ICD-10-PCS; 2020-06-03)
PROC: 0DBL8ZZ Excision of Transverse Colon, Via Natural or Artificial Opening Endoscopic (ICD-10-PCS; 2020-06-03)
PROC: 0DBN8ZZ Excision of Sigmoid Colon, Via Natural or Artificial Opening Endoscopic (ICD-10-PCS; 2020-06-03)
DX: I11.0 Hypertensive heart disease with heart failure (principal); K29.71 Gastritis, unspecified, with bleeding; U07.1 COVID-19; D62 Acute posthemorrhagic anemia; C20 Malignant neoplasm of rectum; I50.33 Acute on chronic diastolic (congestive) heart failure; E86.0 Dehydration; I35.0 Nonrheumatic aortic (valve) stenosis; H35.30 Unspecified macular degeneration; I48.91 Unspecified atrial fibrillation; I25.10 Atherosclerotic heart disease of native coronary artery without angina pectoris; K63.5 Polyp of colon; E78.00 Pure hypercholesterolemia, unspecified; I25.2 Old myocardial infarction; I35.8 Other nonrheumatic aortic valve disorders; Z96.653 Presence of artificial knee joint, bilateral; Z98.49 Cataract extraction status, unspecified eye; Z98.890 Other specified postprocedural states; G47.30 Sleep apnea, unspecified; Z86.79 Personal history of other diseases of the circulatory system; E66.9 Obesity, unspecified; D64.9 Anemia, unspecified; Z88.5 Allergy status to narcotic agent; Z87.891 Personal history of nicotine dependence; Z88.8 Allergy status to other drugs, medicaments and biological substances; Z68.35 Body mass index [BMI] 35.0-35.9, adult; Z91.030 Bee allergy status; Z79.01 Long term (current) use of anticoagulants; Z79.899 Other long term (current) drug therapy
CPT/HCPCS: 36415; 71045; 71045-26; 71260; 71260-26; 74177; 74177-26; 80048; 80053; 81001; 82272; 82378; 83605; 83735; 83880; 84484; 85018; 85025; 85027; 86850; 86900; 86901; 86920; 86922; 87081; 88305; 88341; 88342; 93005; 93306; 97110-GP; 97162-GP; 97530-GP; 97535-GP; 99285; 99285-25; A9270-GY; C9113; J1940; J2001; J2704; J3010; J3475; J3480; J7120; J7121; Q9967; U0002

== ENCOUNTER 2020-08-09 12:45 | Emergency (ER) | payer MEDICARE, OTHER ==
--- NOTE | 2020-08-09 13:42 | EDM.PDOC ---
ED HPI GENERAL MEDICAL PROBLEM - General Chief Complaint: General Stated Complaint: [facility] Time Seen by Provider: 08/09/20 13:30 Source of Information: Reports: Patient, Old Records, RN History Limitations: Reports: Other (poor historian) - History of Present Illness INITIAL COMMENTS - FREE TEXT/NARRATIVE: 89 yo male who lives with his arrives via EMS for low BP. He had fallen without injury today and EMS was called to get him up. EMS noted his BP to be lower than they liked so encouraged him to be seen. Arnie denies fever, diarrhea, bleeding, vomiting, missing meds or taking extra meds. He has no pain. He does not know what his normal BP is. Does use a walker. His 's history conflicts with Arnie's in that she says he's not had his metoprolol for a few days because they ran out. Also, they are out of his K and Mag as the bottle ran out and they did not have refills. Clinic notes suggest his BP is generally in the 96-100 range systolic. Onset: Today, Sudden Onset Date: 08/09/20 Duration: Other (unsure) Location: Reports: Lower Extremity, Left, Lower Extremity, Right Quality: Reports: Other (weakness) Severity: Moderate Improves with: Reports: None Worsens with: Reports: Other (unsure) Context: Reports: Other (See HPI) Associated Symptoms: Reports: Weakness (of both legs) Treatments CLINICAL BIOCHEMICAL GENETICIST: Reports: Other (see below) (none) - Related Data Allergies Allergy/AdvReac Type Severity Reaction Status Date / Time venom-honey bee Allergy Severe Anaphylactic Verified 08/09/20 13:11 [bee venom (honey bee)] Shock propoxyphene HCl AdvReac Nausea and Verified 08/09/20 13:11 [From Darvon] Vomiting Home Meds: Home Meds Propafenone [Rythmol] 225 mg PO DAILY 02/17/13 [History] Simvastatin [Zocor] 20 mg PO DAILY 02/17/13 [History] Multivit-Min/FA/Lycopen/Lutein [Centrum Silver Men Tablet] 1 each PO DAILY 03/05/20 [History] Areds 2 1 cap PO DAILY 05/30/20 [History] Bumetanide [Bumex] 2 mg PO BID #60 tab 06/04/20 [Rx] Magnesium Oxide 400 mg PO BID #60 tablet 06/04/20 [Rx] Potassium Chloride [Klor-Con M20] 40 meq PO DAILY #60 tab.er 06/04/20 [Rx] Apixaban [Eliquis] 5 mg PO BID 08/09/20 [History] Capecitabine [Xeloda] 3 tab PO ASDIRECTED 08/09/20 [History] Ferrous Sulfate 325 mg PO DAILY 08/09/20 [History] Metoprolol Tartrate [Lopressor] 25 mg PO Q12H 08/09/20 [History] Prochlorperazine Maleate [Compazine] 10 mg PO Q6H PRN 08/09/20 [History] Past Medical History HEENT History: Reports: Cataract, Macular Degeneration Cardiovascular History: Reports: Afib, CAD, High Cholesterol, Hypertension, [place], Other (See Below) Other Cardiovascular History: Aortic valve sclerosis Respiratory History: Reports: Sleep Apnea Other Respiratory History: c-pap Gastrointestinal History: Reports: None Genitourinary History: Reports: Other (See Below) Other Genitourinary History: nocturia Musculoskeletal History: Reports: Arthritis, Other (See Below) Other Musculoskeletal History: carpal tunnel syndrome Neurological History: Reports: Other (See Below) Endocrine/Metabolic History: Reports: Obesity/BMI 30+, Other (See Below) Other Endocrine/Metabolic History: impaired fasting glucose Hematologic History: Reports: Anemia Oncologic (Cancer) History: Reports: Other (See Below) 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 - Infectious Disease History Infectious Disease History: Reports: Chicken Pox, Measles, Mumps, Novel Coronavirus, Pertussis (Whooping Cough), Shingles - Past Surgical History Head Surgeries/Procedures: Reports: None HEENT Surgical History: Reports: Cataract Surgery, Oral Surgery, Other (See Below) Other HEENT Surgeries/Procedures: dentures Cardiovascular Surgical History: Reports: None Respiratory Surgical History: Reports: None GI Surgical History: Reports: Hernia Repair/Other Male Surgical History: Reports: None Endocrine Surgical History: Reports: None Musculoskeletal Surgical History: Reports: Knee Replacement Other Musculoskeletal Surgeries/Procedures:: right and left Oncologic Surgical History: Reports: None Dermatological Surgical History: Reports: None Social & Family History - Tobacco Use Tobacco Use Status *Q: Former Tobacco User Years of Tobacco use: 20 Packs/Tins Daily: 2 Used Tobacco, but Quit: Yes Month/Year Tobacco Last Used: 1990 - Caffeine Use Caffeine Use: Reports: Coffee, Soda, Tea - Recreational Drug Use Recreational Drug Use: No ED ROS GENERAL - Review of Systems Review Of Systems: See Below Constitutional: Reports: No Symptoms HEENT: Reports: No Symptoms Respiratory: Reports: No Symptoms Cardiovascular: Reports: No Symptoms Endocrine: Reports: No Symptoms GI/Abdominal: Reports: No Symptoms : Reports: No Symptoms Musculoskeletal: Reports: Other (bilateral leg weakness) Skin: Reports: No Symptoms Neurological: Reports: Weakness (of legs) ED EXAM, GENERAL - Physical Exam Exam: See Below Exam Limited By: No Limitations General Appearance: Alert, WD/WN, No Apparent Distress Eye Exam: Bilateral Eye: Normal Inspection Ears: Normal External Exam, Normal Canal, Hearing Grossly Normal, Normal TMs Ear Exam: Bilateral Ear: Auricle Normal, Canal Normal, TM normal Nose: Normal Inspection, No Blood Throat/Mouth: Normal Inspection, Normal Lips, Normal Voice, No Airway Compromise Head: Atraumatic, Normocephalic Neck: Normal Inspection Respiratory/Chest: No Respiratory Distress, Lungs Clear, Normal Breath Sounds, No Accessory Muscle Use Cardiovascular: Regular Rate, Rhythm, No Edema GI/Abdominal: Soft, Non-Tender, No Distention. No: Distended Extremities: Normal Inspection, Normal Range of Motion, Non-Tender, No Pedal Edema Neurological: Alert, Oriented, CN II-XII Intact, Normal Cognition, No Motor/Sensory Deficits Psychiatric: Normal Affect, Normal Mood Skin Exam: Warm, Dry, Intact, Normal Color, No Rash Course - Vital Signs Last Recorded V/S: Last Vital Signs Temp 36.1 C 08/09/20 13:10 Pulse 82 08/09/20 15:25 Resp 15 08/09/20 13:10 BP 105/67 08/09/20 15:25 Pulse Ox 95 08/09/20 15:25 - Orders/Labs/Meds Orders: Active Orders 24 hr Category Date Time Status NS + KCl 20mEq/L [Normal Saline with 20 mEq KCl] 1,000 Med 08/09/20 14:30 Active ml IV ASDIRECTED Medication Orders Potassium Chloride/Sodium Chloride (Normal Saline With 20 Meq Kcl) 1,000 mls @ 1,000 mls/hr IV ASDIRECTED MARCELO Last Admin: 08/09/20 14:41 Dose: 1,000 mls/hr Documented by: KAMERON Labs: Laboratory Tests 08/09/20 08/09/20 08/09/20 Range/Units 13:45 13:45 13:45 WBC 5.7 (4.5-11.0) K/uL RBC 3.60 L (4.30-5.90) M/uL Hgb 9.9 L (12.0-15.0) g/dL Hct 32.7 L (40.0-54.0) % MCV 91 (80-98) fL MCH 28 (27-31) pg MCHC 30 L (32-36) % Plt Count 162 (150-400) K/uL Sodium 140 (140-148) mmol/L Potassium 3.5 L (3.6-5.2) mmol/L Chloride 99 L (100-108) mmol/L Carbon Dioxide 31 (21-32) mmol/L Anion Gap 13.5 (5.0-14.0) mmol/L BUN 25 H D (7-18) mg/dL Creatinine 1.2 (0.8-1.3) mg/dL Est Cr Clr Drug Dosing 44.78 mL/min Estimated GFR (MDRD) 57 L (>60) Glucose 111 H (74-106) mg/dL Calcium 9.9 (8.5-10.1) mg/dL Magnesium 2.0 (1.8-2.4) mg/dL Troponin I < 0.017 (0.000-0.056) ng/mL Urine Color (YELLOW) Urine Appearance (CLEAR) Urine pH (5.0-8.0) Ur Specific [place] (1.008-1.030) Urine Protein (NEGATIVE) mg/dL Urine Glucose (UA) (NEGATIVE) mg/dL Urine Ketones (NEGATIVE) mg/dL Urine Occult Blood (NEGATIVE) Urine Nitrite (NEGATIVE) Urine Bilirubin (NEGATIVE) Urine Urobilinogen (0.2-1.0) EU/dL Ur Leukocyte Esterase (NEGATIVE) Urine RBC (0-5) Urine WBC (0-5) Ur Epithelial Cells Amorphous Sediment Urine Bacteria Urine Mucus 08/09/20 Range/Units 14:35 WBC (4.5-11.0) K/uL RBC (4.30-5.90) M/uL Hgb (12.0-15.0) g/dL Hct (40.0-54.0) % MCV (80-98) fL MCH (27-31) pg MCHC (32-36) % Plt Count (150-400) K/uL Sodium (140-148) mmol/L Potassium (3.6-5.2) mmol/L Chloride (100-108) mmol/L Carbon Dioxide (21-32) mmol/L Anion Gap (5.0-14.0) mmol/L BUN (7-18) mg/dL Creatinine (0.8-1.3) mg/dL Est Cr Clr Drug Dosing mL/min Estimated GFR (MDRD) (>60) Glucose (74-106) mg/dL Calcium (8.5-10.1) mg/dL Magnesium (1.8-2.4) mg/dL Troponin I (0.000-0.056) ng/mL Urine Color Yellow (YELLOW) Urine Appearance Clear (CLEAR) Urine pH 7.0 (5.0-8.0) Ur Specific [place] 1.020 (1.008-1.030) Urine Protein Negative (NEGATIVE) mg/dL Urine Glucose (UA) Negative (NEGATIVE) mg/dL Urine Ketones Negative (NEGATIVE) mg/dL Urine Occult Blood Trace-intact H (NEGATIVE) Urine Nitrite Negative (NEGATIVE) Urine Bilirubin Negative (NEGATIVE) Urine Urobilinogen 0.2 (0.2-1.0) EU/dL Ur Leukocyte Esterase Negative (NEGATIVE) Urine RBC 0-5 (0-5) Urine WBC 0-5 (0-5) Ur Epithelial Cells Rare Amorphous Sediment Not seen Urine Bacteria Few Urine Mucus Not seen Meds: Medications Generic Name Dose Route Start Last Admin Trade Name Freq PRN Reason Stop Dose Admin Potassium Chloride/Sodium Chloride 1,000 mls @ 1,000 mls/hr 08/09/20 14:30 08/09/20 14:41 Normal Saline With 20 Meq Kcl IV 1,000 mls/hr ASDIRECTED MARCELO Administration Discontinued Medications Generic Name Dose Route Start Last Admin Trade Name Freq PRN Reason Stop Dose Admin Potassium Chloride 20 meq 08/09/20 14:17 08/09/20 14:39 Potassium Chloride 20 Meq Tab.Er PO 08/09/20 14:18 20 meq ONETIME ONE Administration Departure - Departure Time of Disposition: 16:00 Disposition: Home, Self-Care 01 Condition: Fair Clinical Impression: Mild dehydration, Weakness - Discharge Information *PRESCRIPTION DRUG MONITORING PROGRAM REVIEWED*: Not Applicable *COPY OF PRESCRIPTION DRUG MONITORING REPORT IN PATIENT TYLER: Not Applicable Referrals: PCP,None [Ordering Only Provider] - Forms: ED Department Discharge Additional Instructions: Continue your usual medications. Call Dr. Rodriguez today to see if the metoprolol should be continued. Recheck with your doctor within the week for a BP recheck. Return as needed. Sepsis Event Note (ED) - Evaluation Sepsis Screening Result: No Definite Risk - Focused Exam Vital Signs: Vital Signs Temp Pulse Resp BP Pulse Ox 08/09/20 15:25 82 105/67 95 08/09/20 13:10 36.1 C 101 H 15 97/67 97 08/09/20 13:01 36.1 C 101 H 15 97/67 97 - My Orders Last 24 Hours: My Active Orders 08/09/20 14:30 NS + KCl 20mEq/L [Normal Saline with 20 mEq KCl] 1,000 ml IV ASDIRECTED - Assessment/Plan Last 24 Hours: My Active Orders 08/09/20 14:30 NS + KCl 20mEq/L [Normal Saline with 20 mEq KCl] 1,000 ml IV ASDIRECTED
[2020-08-09] MEDS ORDERED: Potassium Chloride 20 MEQ Tab.ER PO ONE (14:17)
[2020-08-09] MEDS ORDERED: NS + KCl 20mEq/L 1,000 ML IV SCH (14:30)
[2020-08-09 15:26] VITALS: BP 105/67; PULSE 82
== END 2020-08-09 16:27 | disposition home or self-care (01) ==
LOC: JP.ED 12:45
DX: E86.0 Dehydration (principal); I25.10 Atherosclerotic heart disease of native coronary artery without angina pectoris; I48.91 Unspecified atrial fibrillation; E78.00 Pure hypercholesterolemia, unspecified; I25.2 Old myocardial infarction; I10 Essential (primary) hypertension; E66.9 Obesity, unspecified; Z68.28 Body mass index [BMI] 28.0-28.9, adult; Z79.01 Long term (current) use of anticoagulants; Z79.899 Other long term (current) drug therapy; Z86.16 Personal history of COVID-19; Z91.030 Bee allergy status; Z87.891 Personal history of nicotine dependence
CPT/HCPCS: 36415; 80048; 81001; 83735; 84484; 85027; 96365; 99285; A9270; J3480; 99283

== ENCOUNTER 2020-12-21 05:19 | Inpatient (IN) | payer MEDICARE, OTHER ==
[2020-12-21] MEDS ORDERED: Acetaminophen 500 MG Tab PO ONE (05:45)
[2020-12-21] MEDS ORDERED: Dextrose 5%-Lactated Ringers 1,000 ML IV SCH (06:00)
[2020-12-21] MEDS ORDERED: Meropenem 500 MG in Sodium Chloride 0.9% 50 ML IV ONE (06:33)
[2020-12-21] MEDS ORDERED: Lidocaine 1% with EPINEPHrine 1:100,000 50 ML MDV ONE (06:39)
[2020-12-21] MEDS ORDERED: Meropenem 500 MG SDV ONE ×2 (06:39→09:49)
[2020-12-21] MEDS ORDERED: Bupivacaine 0.5% 50 ML MDV ONE (06:39)
[2020-12-21] MEDS ORDERED: fentaNYL 250 MCG/5 ML SDV ONE (07:11)
[2020-12-21] MEDS ORDERED: Succinylcholine 200 MG/10 ML MDV ONE (07:12)
[2020-12-21] MEDS ORDERED: Ondansetron 4 MG/2 ML SDV ONE (07:12)
[2020-12-21] MEDS ORDERED: Propofol 200 MG/20 ML SDV ONE (07:12)
[2020-12-21] MEDS ORDERED: Dexamethasone 4 MG/ML SDV ONE (07:12)
[2020-12-21] MEDS ORDERED: Rocuronium 50 MG/5 ML Vial ONE ×3 (07:12→12:10)
[2020-12-21] MEDS ORDERED: Neostigmine Methylsulfate 1 MG/ML 5 ML Syringe ONE (07:12)
[2020-12-21] MEDS ORDERED: Glycopyrrolate 0.2 MG/ML 5 ML MDV ONE (07:12)
[2020-12-21] MEDS ORDERED: Sodium Chloride 0.9% 10 ML ONE ×3 (07:14→12:38)
[2020-12-21] MEDS ORDERED: SODIUM CHLORIDE 0.9% ONE ×2 (07:15)
[2020-12-21] MEDS ORDERED: MEROPENEM 500 MG ONE ×2 (07:15)
[2020-12-21] MEDS ORDERED: cefOXitin 2 GM in Sodium Chloride 0.9% 50 ML IV ONE (07:45)
[2020-12-21] MEDS ORDERED: Naloxone 0.4 MG/ML SDV IVPUSH PRN (08:00)
[2020-12-21] MEDS ORDERED: Scopolamine 1.5 MG Transdermal Patch ONE (08:28)
[2020-12-21] MEDS ORDERED: Lactated Ringers 1,000 ML ONE ×2 (09:48→13:23)
--- NOTE | 2020-12-21 11:48 | PCM.EKG ---
#1 Interpretation EKG Date: 12/21/20 Time: 07:21 Rhythm: A-Fib Rate (Beats/Min): 79 [place]: Normal P-Wave: Variable QRS: Normal ST-T: Normal QT: Normal PA/PQ Interval: n/a Comparison: No Change (compared to 05/30/20)
[2020-12-21] MEDS ORDERED: fentaNYL 100 MCG/2 ML SDV ONE ×2 (12:19→14:18)
[2020-12-21] MEDS ORDERED: cefOXitin 2 GM Vial ONE (12:38)
[2020-12-21] MEDS ORDERED: Ondansetron 4 MG/2 ML SDV IVPUSH PRN (15:49)
[2020-12-21] MEDS ORDERED: hydrOXYzine HCL 100 MG/2 ML SDV IM PRN (15:51)
[2020-12-21] MEDS: Pantoprazole 40 MG Vial IV SCH (16:26)
[2020-12-21] MEDS: cefOXitin 2 GM in Sodium Chloride 0.9% 50 ML IV SCH ×2 (16:27→22:32)
[2020-12-21] MEDS: Dextrose 5%-Lactated Ringers 1,000 ML IV SCH (16:33)
[2020-12-21] MEDS: fentaNYL 2,500 MCG in Sodium Chloride 0.9% 200 ML EPIDUR SCH (16:38)
[2020-12-21] MEDS ORDERED: Metoprolol Tartrate 5 MG/5 ML SDV IVPUSH ONE (17:00)
--- NOTE | 2020-12-21 17:09 | PCM.CONS ---
H&P History of Present Illness - General Date of Service: 12/21/20 Source of Information: Family, Provider. No: Patient History Limitations: Reports: Altered Mental Status (sedated) - History of Present Illness Initial Comments - Free Text/Narative: CC: rapid afib HPI: Arnie was admitted this afternoon after having an elective colectomy for rectal cancer. He is quite lethargic at this time and unable to provide any reliable history. He came to the intensive care unit postoperatively. He is currently in a rapid atrial fibrillation with heart rates in the 130s. He is hypotensive with systolic pressures in the 70s. He is able to tell me that he is not having any abdominal pain but I was not able to get any further history out of him. He had about 2 L of fluid during surgery as well as 2 units of blood. He does have a history of congestive heart failure as well as atrial fibrillation. He had a recent transaortic valve repair. - Related Data Allergies/Adverse Reactions: Allergies Allergy/AdvReac Type Severity Reaction Status Date / Time venom-honey bee Allergy Severe Anaphylactic Verified 12/21/20 06:09 [bee venom (honey bee)] Shock propoxyphene HCl AdvReac Nausea and Verified 12/21/20 06:09 [From Darvon] Vomiting Home Medications: Home Meds Propafenone [Rythmol] 225 mg PO DAILY 02/17/13 [History] Simvastatin [Zocor] 20 mg PO DAILY 02/17/13 [History] Multivit-Min/FA/Lycopen/Lutein [Centrum Silver Men Tablet] 1 each PO DAILY 03/05/20 [History] Areds 2 1 cap PO DAILY 05/30/20 [History] Magnesium Oxide 400 mg PO BID #60 tablet 06/04/20 [Rx] Potassium Chloride [Klor-Con M20] 40 meq PO DAILY #60 tab.er 06/04/20 [Rx] Apixaban [Eliquis] 5 mg PO BID 08/09/20 [History] Capecitabine [Xeloda] 3 tab PO ASDIRECTED 08/09/20 [History] Ferrous Sulfate 325 mg PO DAILY 08/09/20 [History] Metoprolol Tartrate [Lopressor] 12.5 mg PO Q12H 08/09/20 [History] Prochlorperazine Maleate [Compazine] 10 mg PO Q6H PRN 08/09/20 [History] Aspirin [Ecotrin EC] 81 mg PO DAILY 12/17/20 [History] Diphenoxylate HCl/Atropine [Lomotil] 2 tab PO QID 12/17/20 [History] Lactobacillus Rhamnosus GG [Culturelle] 1 cap PO BID 12/17/20 [History] Pantoprazole [ProTONIX] 40 mg PO DAILY 12/17/20 [History] Trolamine Salicylate [Ultracin T] 1 applic TOP ASDIRECTED 12/17/20 [History] atorvaSTATin [Lipitor] 10 mg PO DAILY 12/17/20 [History] Past Medical History HEENT History: Reports: Cataract, Macular Degeneration Cardiovascular History: Reports: Afib, CAD, High Cholesterol, Hypertension, [place], Other (See Below) Other Cardiovascular History: Aortic valve sclerosis Respiratory History: Reports: Sleep Apnea Other Respiratory History: c-pap Gastrointestinal History: Reports: None Genitourinary History: Reports: Other (See Below) Other Genitourinary History: nocturia Musculoskeletal History: Reports: Arthritis, Other (See Below) Other Musculoskeletal History: carpal tunnel syndrome Neurological History: Reports: Other (See Below) Endocrine/Metabolic History: Reports: Obesity/BMI 30+, Other (See Below) Other Endocrine/Metabolic History: impaired fasting glucose Hematologic History: Reports: Anemia Oncologic (Cancer) History: Reports: Colon, Other (See Below) 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 - Infectious Disease History Infectious Disease History: Reports: Chicken Pox, Measles, Mumps, Novel Coronavirus, Pertussis (Whooping Cough), Shingles - Past Surgical History Head Surgeries/Procedures: Reports: None HEENT Surgical History: Reports: Cataract Surgery, Oral Surgery, Other (See Below) Other HEENT Surgeries/Procedures: dentures Cardiovascular Surgical History: Reports: None, Valve Replacement Respiratory Surgical History: Reports: None GI Surgical History: Reports: Hernia Repair/Other Male Surgical History: Reports: None Endocrine Surgical History: Reports: None Musculoskeletal Surgical History: Reports: Knee Replacement Other Musculoskeletal Surgeries/Procedures:: right and left Oncologic Surgical History: Reports: None Dermatological Surgical History: Reports: None Social & Family History - Family History Family Medical History: No Pertinent Family History - Tobacco Use Tobacco Use Status *Q: Former Tobacco User Used Tobacco, but Quit: Yes Month/Year Tobacco Last Used: 40 years ago - Caffeine Use Caffeine Use: Reports: Coffee - Recreational Drug Use Recreational Drug Use: No H&P Review of Systems - Review of Systems: Review Of Systems: Unable To Obtain Reason Not Obtained: sedated post op Exam - Exam Exam: See Below - Vital Signs Vital Signs: Last Vital Signs Temp 36.4 C 12/21/20 17:04 Pulse 133 H 12/21/20 17:04 Resp 24 H 12/21/20 17:04 BP 63/42 L 12/21/20 17:04 Pulse Ox 93 L 12/21/20 17:04 Weight: 91.626 kg - Exam Quality Assessment: No: Supplemental Oxygen General: Alert, Cooperative, Sedated. No: Oriented, Mild Distress HEENT: Conjunctiva Clear, Other (poor dentition ). No: Mucosa Moist & [place] (dry), Scleral Icterus Neck: Supple, Trachea Midline. No: JVD Lungs: Clear to Auscultation, Normal Respiratory Effort Cardiovascular: Irregular Rhythm, Tachycardia. No: Systolic Murmur GI/Abdominal Exam: No Distention, Other (abdominal binder in place ) Extremities: No Pedal Edema. No: Increased Warmth Skin: Warm, Dry Neuro Extensive - Mental Status: Alert. No: Nl Response to Commands Neuro Extensive - Motor, Sensory, Reflexes: No: Dysarthria, Tremor Psychiatric: Alert, Other (sleepy ). No: Agitated - Patient Data Lab Results Last 24 hrs: Laboratory Results - last 24 hr 12/21/20 Range/Units 06:06 Blood Type A NEGATIVE Gel Antibody Screen Negative Crossmatch See Detail Result Diagrams: 12/21/20 17:32 Sepsis Event Note - Evaluation Sepsis Screening Result: Possible Sepsis Risk - Focused Exam Vital Signs: Vital Signs Temp Pulse Resp BP Pulse Ox 12/21/20 17:04 36.4 C 133 H 24 H 63/42 L 93 L 12/21/20 16:48 36.3 C 122 H 13 76/37 L 92 L 12/21/20 16:31 36.3 C 119 H 17 84/42 L 93 L 12/21/20 16:15 36.3 C 69 13 87/34 L 92 L 12/21/20 15:46 36.2 C 128 H 17 105/56 L 97 12/21/20 15:42 133 H 17 102/55 L 97 12/21/20 15:36 132 H 16 89/65 L 98 12/21/20 15:31 36.1 C 131 H 16 97/50 L 97 12/21/20 15:25 129 H 16 85/49 L 94 L 12/21/20 15:20 134 H 16 110/69 98 12/21/20 15:15 35.6 C L 140 H 17 110/62 96 12/21/20 06:38 36 C L 52 L 16 97/43 L 94 L *Q Meaningful Use (ADM) - VTE Risk Assess *Q Each Risk Factor Represents 1 Point: Obesity ( BMI > 25 kg/m2), Congestive heart failure (CHF) Total Score 1 Point Risk Factors: 2 Each Risk Factor Represents 2 Points: Malignancy (present or previous), Major surgery greater than 45 minutes Total Score 2 Point Risk Factors: 4 Each Risk Factor Represents 3 Points: Age 75 Years or Greater Total Score 3 Point Risk Factors: 3 Each Risk Factor Represents 5 Points: None Total Score 5 Point Risk Factors: 0 Venous Thromboembolism Risk Factor Score *Q: 9 Consult PN Assessment/Plan POD#: 0 Procedures: Procedures AGENT NOS ASSAY W/OPTIC (04/06/20) AIRWAY INHALATION TREATMENT (05/25/20) ASSAY OF CK (CPK) (03/14/20) ASSAY OF FERRITIN (03/05/20) ASSAY OF LACTIC ACID (05/30/20) ASSAY OF MAGNESIUM (08/09/20) ASSAY OF NATRIURETIC PEPTIDE (05/30/20) ASSAY OF TROPONIN QUANT (08/09/20) BLOOD CULTURE FOR BACTERIA (04/06/20) BLOOD TRANSFUSION SERVICE (03/05/20) BLOOD TYPING SEROLOGIC ABO (05/30/20) BLOOD TYPING SEROLOGIC RH(D) (05/30/20) C DIFF AMPLIFIED PROBE (03/14/20) C-REACTIVE PROTEIN (04/06/20) CARCINOEMBRYONIC ANTIGEN (05/30/20) CARPAL TUNNEL SURGERY (02/18/13) COMPATIBILITY TEST ANTIGLOB (05/30/20) COMPATIBILITY TEST SPIN (05/30/20) COMPLETE CBC AUTOMATED (08/09/20) COMPLETE CBC W/AUTO DIFF WBC (05/30/20) COMPREHEN METABOLIC PANEL (05/30/20) CT ABD & PELV W/CONTRAST (05/30/20) CT ANGIOGRAPHY CHEST (05/28/20) CT THORAX DX C+ (05/30/20) CULTURE SCREEN ONLY (05/30/20) ELECTROCARDIOGRAM REPORT (03/14/20) ELECTROCARDIOGRAM TRACING (05/30/20) EMERGENCY DEPT VISIT (08/09/20) EMERGENCY DEPT VISIT (05/25/20) EMERGENCY DEPT VISIT (05/25/20) EMERGENCY DEPT VISIT (04/06/20) EMERGENCY DEPT VISIT (04/06/20) EMERGENCY DEPT VISIT (10/07/18) EVALUATE SWALLOWING FUNCTION (03/05/20) EXTREMITY STUDY (05/27/20) FIBRIN DEGRADATION QUANT (03/05/20) HEMOGLOBIN (05/30/20) HEPATIC FUNCTION PANEL (03/14/20) HOSPITAL DISCHARGE DAY (03/14/20) HOSPITAL DISCHARGE DAY (03/05/20) HYDRATE IV INFUSION ADD-ON (10/07/18) IMMUNOHISTO ANTB 1ST STAIN (05/30/20) IMMUNOHISTO ANTB ADDL SLIDE (05/30/20) INITIAL HOSPITAL CARE (03/05/20) INSERT TEMP BLADDER CATH (03/14/20) LACTATE (LD) (LDH) ENZYME (03/05/20) LEUKOCYTE ASSESSMENT FECAL (04/06/20) MEASURE BLOOD OXYGEN LEVEL (03/05/20) METABOLIC PANEL TOTAL CA (08/09/20) OCCULT BLD FECES 1-3 TESTS (05/30/20) OCCULT BLOOD FECES (04/06/20) PROCALCITONIN (PCT) (04/06/20) PROTHROMBIN TIME (03/05/20) PT EVAL MOD COMPLEX 30 MIN (05/30/20) RBC ANTIBODY SCREEN (05/30/20) ROUTINE VENIPUNCTURE (08/09/20) SELF CARE MNGMENT TRAINING (05/30/20) STOOL CULTR AEROBIC BACT EA (04/06/20) SUBSEQUENT HOSPITAL CARE (03/14/20) SUBSEQUENT HOSPITAL CARE (03/14/20) SUBSEQUENT HOSPITAL CARE (03/05/20) SUBSEQUENT HOSPITAL CARE (03/05/20) THER/PROPH/DIAG INJ IV PUSH (10/07/18) THER/PROPH/DIAG IV INF ADDON (03/14/20) THER/PROPH/DIAG IV INF INIT (08/09/20) THERAPEUTIC ACTIVITIES (05/30/20) THERAPEUTIC EXERCISES (05/30/20) TISSUE EXAM BY PATHOLOGIST (05/30/20) TTE W/DOPPLER COMPLETE (05/30/20) TX/PRO/DX INJ NEW DRUG ADDON (03/05/20) TX/PRO/DX INJ SAME DRUG LECTURER IN MARKETING (03/14/20) TX/PROPH/DG ADDL SEQ IV INF (03/14/20) URINALYSIS AUTO W/SCOPE (08/09/20) URINE CULTURE/COLONY COUNT (03/05/20) US EXAM ABDOM COMPLETE (03/14/20) X-RAY EXAM CHEST 1 VIEW (05/30/20) X-RAY EXAM OF SHOULDER (03/14/20) (1) Atrial fibrillation with RVR SNOMED Code(s): 379874510795755 Code(s): I48.91 - UNSPECIFIED ATRIAL FIBRILLATION Current Visit: No Problem List Initiated/Reviewed/Updated: Yes My Orders Last 24 Hours: My Active Orders 12/21/20 17:05 Digoxin [Lanoxin] 125 mcg IVPUSH ONETIME ONE 12/21/20 17:06 BASIC METABOLIC PANEL,BMP [CHEM] Urgent CBC WITH AUTO DIFF [HEME] Urgent MAGNESIUM [CHEM] Urgent 12/21/20 17:15 Lactated Ringers [Ringers, Lactated] 500 ml IV ASDIRECTED Plan: ASSESSMENT AND PLAN - Rectal cancer status post APR-unstable in the early postoperative period. Received 2 units of blood as well as 2 L of fluid during surgery. He is quite sleepy at this time. -Postoperative care as per the surgical team Rapid atrial fibrillation-history of atrial fibrillation, previously rate controlled. Unable to use oral medications because of lethargy. He is also hypotensive as discussed below limiting use at this time. -We will try couple IV fluid boluses but have a low threshold for vasopressor support to use additional rate control medications -Trial of digoxin -Consider metoprolol if blood pressure improves -consider esmolol for additional rate control if blood pressure remains low Postoperative hypotension-probably related to third spacing. He did receive 2 L of fluid in the operating room as well as 2 units of blood. He has received an additional liter of fluid in the intensive care unit. Low threshold to initiate vasopressor support given history of congestive heart failure. -Reassess blood pressure after completion of second bolus -Consider norepinephrine Maintenance issues - -DVT prophylaxis-mechanical -GI prophylaxis-PPI -Nutrition-clear liquids -Gan catheter-necessary for strict intake and output monitoring Antonio Washington M.D. Requesting Provider: Dr Duggan Date Consult Requested: 12/21/20 Reason for Consult: rapid afib Patient History Reviewed: Yes Admission H&P Reviewed: No (not available at this time) Notified Requestor: No Time Spent (in minutes): 60
[2020-12-21] MEDS ORDERED: Digoxin 500 MCG/2 ML Amp ONE (17:13)
[2020-12-21] MEDS ORDERED: Digoxin 500 MCG/2 ML Amp IVPUSH ONE (17:15)
[2020-12-21] MEDS ORDERED: Lactated Ringers 500 ML IV SCH ×2 (17:15→18:00)
[2020-12-21] MEDS: Lactated Ringers 1,000 ML IV SCH ×2 (17:38→22:45)
[2020-12-21] MEDS: SCOPOLAMINE PATCH CHECK TOP SCH (18:03)
[2020-12-21] MEDS: Norepinephrine 8 MG in Dextrose 5% in Water 250 ML IV SCH ×2 (18:13)
[2020-12-21] MEDS: Magnesium Sulfate/Water 2 GM in Premix Bag 1 BAG IV SCH ×2 (18:28→23:50)
[2020-12-21] MEDS ORDERED: Metoprolol Tartrate 5 MG/5 ML SDV IVPUSH SCH (19:00)
[2020-12-21] MEDS: Tamsulosin 0.4 MG Cap.ER PO SCH ×2 (20:31→22:02)
[2020-12-21] MEDS ORDERED: Metoprolol Tartrate 25 MG Tab PO SCH (21:00)
[2020-12-22] MEDS: fentaNYL 2,500 MCG in Sodium Chloride 0.9% 200 ML EPIDUR SCH (03:21)
[2020-12-22] MEDS: cefOXitin 2 GM in Sodium Chloride 0.9% 50 ML IV SCH ×4 (04:07→23:00)
[2020-12-22] MEDS: Dextrose 5%-Lactated Ringers 1,000 ML IV SCH ×2 (04:10→20:01)
[2020-12-22] MEDS ORDERED: Diltiazem 100 MG in Sodium Chloride 0.9% 100 ML IV SCH (04:30)
[2020-12-22] MEDS: Lactated Ringers 1,000 ML IV SCH (08:31)
--- NOTE | 2020-12-22 09:01 | PCM.CONSN ---
- General Info Date of Service: 12/22/20 Subjective Update: There were no acute events overnight. We did have some difficulty with rate control though we did see an improvement with esmolol. Unfortunately this medication ran out and we had to transition him to diltiazem. We have had decent rate control with IV diltiazem. He has required norepinephrine to maintain his blood pressure overnight. This morning he is alert and interactive. He was able to take his propafenone already this morning. Kidney function is slightly better than yesterday. He reports no pain. He does not report any nausea. He does not report any shortness of breath. He says that he feels good. He has had small quantities of clear liquids so far which she has tolerated. He is currently receiving a unit of blood. Functional Status: Reports: Pain Controlled - Review of Systems General: Denies: Fever Gastrointestinal: Denies: Abdominal Pain - Patient Data Vitals - Most Recent: Last Vital Signs Temp 36.5 C 12/22/20 08:30 Pulse 106 H 12/22/20 08:41 Resp 15 12/22/20 08:30 BP 119/60 12/22/20 08:30 Pulse Ox 93 L 12/22/20 08:30 Weight - Most Recent: 91.626 kg I&O - Last 24 Hours: Intake & Output 12/21/20 12/22/20 12/22/20 22:59 06:59 14:59 Intake Total 1461 3366 Output Total 875 305 165 Balance 586 3061 -165 Lab Results Last 24 Hours: Laboratory Results - last 24 hr 12/21/20 12/21/20 12/21/20 Range/Units 06:06 17:32 17:32 WBC 15.7 H (4.5-11.0) K/uL RBC 3.60 L (4.30-5.90) M/uL Hgb 10.2 L (12.0-15.0) g/dL Hct 32.2 L (40.0-54.0) % MCV 89 (80-98) fL MCH 28 (27-31) pg MCHC 32 (32-36) % Plt Count 213 (150-400) K/uL Neut % (Auto) 87.5 H (36-66) % Lymph % (Auto) 2.0 L (24-44) % Ripley % (Auto) 10.3 H (2-6) % Eos % (Auto) 0.1 L (2-4) % Baso % (Auto) 0.1 (0-1) % Sodium 136 L (140-148) mmol/L Potassium 4.2 (3.6-5.2) mmol/L Chloride 103 (100-108) mmol/L Carbon Dioxide 24 (21-32) mmol/L Anion Gap 13.2 (5.0-14.0) mmol/L BUN 31 H (7-18) mg/dL Creatinine 1.8 H (0.8-1.3) mg/dL Est Cr Clr Drug Dosing 29.29 mL/min Estimated GFR (MDRD) 36 L (>60) Glucose 188 H (74-106) mg/dL Calcium 8.4 L D (8.5-10.1) mg/dL Phosphorus (2.5-4.9) mg/dL Magnesium 1.6 L (1.8-2.4) mg/dL Total Bilirubin (0.2-1.0) mg/dL AST (15-37) U/L ALT (12-78) U/L Alkaline Phosphatase (46-116) U/L NT-Pro-B Natriuret Pep (5-450) pg/mL Total Protein (6.4-8.2) g/dL Albumin (3.4-5.0) g/dL Globulin (2.3-3.5) g/dL Albumin/Globulin Ratio (1.2-2.2) Blood Type A NEGATIVE Gel Antibody Screen Negative Crossmatch See Detail 12/22/20 12/22/20 Range/Units 04:13 04:13 WBC 19.8 H (4.5-11.0) K/uL RBC 3.38 L (4.30-5.90) M/uL Hgb 9.4 L (12.0-15.0) g/dL Hct 30.2 L (40.0-54.0) % MCV 89 (80-98) fL MCH 28 (27-31) pg MCHC 31 L (32-36) % Plt Count 242 (150-400) K/uL Neut % (Auto) (36-66) % Lymph % (Auto) (24-44) % Ripley % (Auto) (2-6) % Eos % (Auto) (2-4) % Baso % (Auto) (0-1) % Sodium 137 L (140-148) mmol/L Potassium 4.8 (3.6-5.2) mmol/L Chloride 102 (100-108) mmol/L Carbon Dioxide 24 (21-32) mmol/L Anion Gap 15.8 H (5.0-14.0) mmol/L BUN 30 H (7-18) mg/dL Creatinine 1.6 H (0.8-1.3) mg/dL Est Cr Clr Drug Dosing 32.95 mL/min Estimated GFR (MDRD) 41 L (>60) Glucose 160 H (74-106) mg/dL Calcium 8.5 (8.5-10.1) mg/dL Phosphorus 3.9 (2.5-4.9) mg/dL Magnesium 2.7 H (1.8-2.4) mg/dL Total Bilirubin 0.6 (0.2-1.0) mg/dL AST 34 (15-37) U/L ALT 18 (12-78) U/L Alkaline Phosphatase 49 (46-116) U/L NT-Pro-B Natriuret Pep 3910 H (5-450) pg/mL Total Protein 4.8 L (6.4-8.2) g/dL Albumin 2.2 L (3.4-5.0) g/dL Globulin 2.6 (2.3-3.5) g/dL Albumin/Globulin Ratio 0.9 L (1.2-2.2) Blood Type Gel Antibody Screen Crossmatch Med Orders - Current: Current Medications Alvimopan (Alvimopan 12 Mg Capsule) 12 mg PO Q12H [facility] Stop: 12/28/20 08:01 Last Admin: 12/21/20 22:01 Dose: Not Given Documented by: Aspirin (Aspirin 81 Mg Tab.Ec) 81 mg PO DAILY [facility] Atorvastatin Calcium (Atorvastatin 10 Mg Tab) 10 mg PO DAILY [facility] Ropivacaine 45 ml/Dexamethasone 8 mg/Epinephrine HCl 0.4 mg/ Sodium Chloride 32.6 ml 0 ml NERVRT ASDIRECTED [facility] Hydroxyzine HCl (Hydroxyzine Hcl 100 Mg/2 Ml Sdv) 0 mg IM Q4H PRN PRN Reason: PAIN Fentanyl 2,500 mcg/ Sodium (Chloride) 250 mls @ 0 mls/hr EPIDUR TITRATE [facility]; Protocol Last Admin: 12/22/20 03:21 Dose: 12 mls/hr, 12 mls/hr Documented by: Dextrose/Lactated Ringer's (Dextrose 5%-Lactated Ringers) 1,000 mls @ 75 mls/hr IV ASDIRECTED [facility] Last Admin: 12/22/20 04:10 Dose: 75 mls/hr Documented by: Lactated Ringer's (Ringers, Lactated) 1,000 mls @ 100 mls/hr IV ASDIRECTED [facility] Last Admin: 12/22/20 08:31 Dose: 100 mls/hr Documented by: Cefoxitin Sodium 2 gm/ Sodium (Chloride) 50 mls @ 100 mls/hr IV Q6H [facility] Stop: 12/23/20 10:29 Last Admin: 12/22/20 04:07 Dose: 100 mls/hr Documented by: Norepinephrine Bitartrate 8 mg (/ Dextrose/Water) 258 mls @ 3.87 mls/hr IV TITRATE [facility]; Protocol Last Infusion: 12/22/20 04:07 Dose: 9 mcg/min, 17.415 mls/hr Documented by: Diltiazem HCl 100 mg/ Sodium (Chloride) 100 mls @ 5 mls/hr IV TITRATE [facility]; Protocol Last Titration: 12/22/20 05:05 Dose: 15 mg/hr, 15 mls/hr Documented by: Metoprolol Tartrate (Metoprolol Tartrate 25 Mg Tab) 25 mg PO Q12H [facility] Naloxone HCl (Naloxone 0.4 Mg/Ml Sdv) 0.1 mg IVPUSH Q5M PRN PRN Reason: RESP RATE LESS THAN 6/MINUTE Scopolamine Patch (Check) 1 each TOP DAILY [facility] Last Admin: 12/21/20 18:03 Dose: 1 each Documented by: Ondansetron HCl (Ondansetron 4 Mg/2 Ml Sdv) 4 mg IVPUSH Q4H PRN PRN Reason: Nausea Pantoprazole Sodium (Pantoprazole 40 Mg Vial) 40 mg IV Q24H [facility] Last Admin: 12/21/20 16:26 Dose: 40 mg Documented by: Propafenone HCl (Propafenone 150 Mg Tab) 225 mg PO DAILY [facility] Last Admin: 12/22/20 08:41 Dose: Not Given Documented by: Scopolamine (Scopolamine 1.5 Mg Transdermal Patch) 1.5 mg TOP Q72H [facility] Tamsulosin HCl (Tamsulosin 0.4 Mg Cap.Er) 0.4 mg PO BEDTIME [facility] Last Admin: 12/21/20 22:02 Dose: Not Given Documented by: Discontinued Medications Acetaminophen (Acetaminophen 500 Mg Tab) 1,000 mg PO ONETIME ONE Stop: 12/21/20 05:46 Last Admin: 12/21/20 06:20 Dose: 1,000 mg Documented by: Alvimopan (Alvimopan 12 Mg Capsule) 12 mg PO ONETIME ONE Stop: 12/21/20 06:37 Last Admin: 12/21/20 07:02 Dose: 12 mg Documented by: Bupivacaine HCl (Bupivacaine 0.5% 50 Ml Mdv) Confirm Administered Dose 50 ml .ROUTE .STK-MED ONE Stop: 12/21/20 06:40 Cefoxitin Sodium (Cefoxitin 2 Gm Vial) Confirm Administered Dose 2 gm .ROUTE .STK-MED ONE Stop: 12/21/20 12:39 Meropenem 500 mg/ Sodium (Chloride 750 ml) 0 mg .XX ONETIME ONE Stop: 12/21/20 07:16 Last Admin: 12/21/20 07:10 Dose: 700 cont Documented by: Dexamethasone (Dexamethasone 4 Mg/Ml Sdv) Confirm Administered Dose 4 mg .ROUTE .STK-MED ONE Stop: 12/21/20 07:13 Digoxin (Digoxin 500 Mcg/2 Ml Amp) 125 mcg IVPUSH ONETIME ONE Stop: 12/21/20 17:16 Last Admin: 12/21/20 17:15 Dose: 125 mcg Documented by: Digoxin (Digoxin 500 Mcg/2 Ml Amp) Confirm Administered Dose 500 mcg .ROUTE .STK-MED ONE Stop: 12/21/20 17:14 Last Admin: 12/21/20 17:27 Dose: Not Given Documented by: Fentanyl (Fentanyl 250 Mcg/5 Ml Sdv) Confirm Administered Dose 250 mcg .ROUTE .STK-MED ONE Stop: 12/21/20 07:12 Fentanyl (Fentanyl 100 Mcg/2 Ml Sdv) Confirm Administered Dose 100 mcg .ROUTE .S TK-MED ONE Stop: 12/21/20 12:20 Fentanyl (Fentanyl 100 Mcg/2 Ml Sdv) Confirm Administered Dose 100 mcg .ROUTE .STK-MED ONE Stop: 12/21/20 14:19 Glycopyrrolate (Glycopyrrolate 0.2 Mg/Ml 5 Ml Mdv) Confirm Administered Dose 1 mg .ROUTE .[facility] ONE Stop: 12/21/20 07:13 Dextrose/Lactated Ringer's (Dextrose 5%-Lactated Ringers) 1,000 mls @ 100 mls/hr IV ASDIRECTED [facility] Last Admin: 12/21/20 06:20 Dose: 100 mls/hr Documented by: Cefoxitin Sodium 2 gm/ Sodium (Chloride) 50 mls @ 100 mls/hr IV ONETIME ONE Stop: 12/21/20 08:14 Last Admin: 12/21/20 07:52 Dose: 100 mls/hr Documented by: Linezolid (Zyvox) Confirm Administered Dose 300 mls @ as directed .ROUTE .[facility] ONE Stop: 12/21/20 06:40 Sodium Chloride (Normal Saline) Confirm Administered Dose 10 mls @ as directed .ROUTE .[facility] ONE Stop: 12/21/20 07:15 Sodium Chloride (Normal Saline) Confirm Administered Dose 10 mls @ as directed .ROUTE .[facility] ONE Stop: 12/21/20 08:35 Lactated Ringer's (Ringers, Lactated) Confirm Administered Dose 1,000 mls @ as directed .ROUTE .[facility] ONE Stop: 12/21/20 09:49 Linezolid (Zyvox) Confirm Administered Dose 300 mls @ as directed .ROUTE .[facility] ONE Stop: 12/21/20 09:50 Sodium Chloride (Normal Saline) Confirm Administered Dose 10 mls @ as directed .ROUTE .[facility] ONE Stop: 12/21/20 12:39 Lactated Ringer's (Ringers, Lactated) Confirm Administered Dose 1,000 mls @ as directed .ROUTE .[facility] ONE Stop: 12/21/20 13:24 Lactated Ringer's (Ringers, Lactated) 500 mls @ 999 mls/hr IV ASDIRECTED [facility] Stop: 12/21/20 17:46 Last Admin: 12/21/20 17:10 Dose: 999 mls/hr Documented by: Lactated Ringer's (Ringers, Lactated) 500 mls @ 999 mls/hr IV ASDIRECTED [facility] Stop: 12/21/20 18:31 Last Admin: 12/21/20 18:00 Dose: 999 mls/hr Documented by: Magnesium Sulfate 2 gm/ Premix 50 mls @ 25 mls/hr IV Q6H [facility] Stop: 12/22/20 02:14 Last Admin: 12/21/20 23:50 Dose: 25 mls/hr Documented by: Esmolol HCl (Esmolol Hcl In Sterile Water 2,500 Mg/250 Ml) 250 mls @ 27.488 mls/hr IV TITRATE [facility]; Protocol Last Admin: 12/22/20 03:23 Dose: 300 mcg/kg/min, 164.927 mls/hr Documented by: Lidocaine/Epinephrine (Lidocaine 1% With Epinephrine 1:100,000 50 Ml Mdv) Confirm Administered Dose 50 ml .ROUTE .STK-MED ONE Stop: 12/21/20 06:40 Linezolid (Linezolid 600 Mg/300 Ml Bag) 1,200 mg IRR .STK-MED ONE Stop: 12/21/20 09:59 Last Admin: 12/21/20 09:58 Dose: 1,200 mg Documented by: Meropenem (Meropenem 500 Mg Sdv) Confirm Administered Dose 500 mg .ROUTE .STK- MED ONE Stop: 12/21/20 06:40 Last Admin: 12/21/20 09:58 Dose: 1,000 mg Documented by: Meropenem (Meropenem 500 Mg Sdv) Confirm Administered Dose 500 mg .ROUTE .STK- MED ONE Stop: 12/21/20 09:50 Metoprolol Tartrate (Metoprolol Tartrate 25 Mg Tab) 12.5 mg PO BID [facility] Last Admin: 12/21/20 20:29 Dose: Not Given Documented by: Metoprolol Tartrate (Metoprolol Tartrate 5 Mg/5 Ml Sdv) 5 mg IVPUSH ONETIME ONE Stop: 12/21/20 17:01 Metoprolol Tartrate (Metoprolol Tartrate 5 Mg/5 Ml Sdv) 5 mg IVPUSH Q4H [facility] Last Admin: 12/21/20 19:37 Dose: 5 mg Documented by: Neostigmine Methylsulfate (Neostigmine Methylsulfate 1 Mg/Ml 5 Ml Syringe) Confirm Administered Dose 5 mg .ROUTE .STK-MED ONE Stop: 12/21/20 07:13 Ondansetron HCl (Ondansetron 4 Mg/2 Ml Sdv) Confirm Administered Dose 4 mg .ROUTE .STK-MED ONE Stop: 12/21/20 07:13 Propofol (Propofol 200 Mg/20 Ml Sdv) Confirm Administered Dose 200 mg .ROUTE .STK-MED ONE Stop: 12/21/20 07:13 Rocuronium Douglass (Rocuronium 50 Mg/5 Ml Vial) Confirm Administered Dose 50 mg .ROUTE .STK-MED ONE Stop: 12/21/20 07:13 Rocuronium Douglass (Rocuronium 50 Mg/5 Ml Vial) Confirm Administered Dose 50 mg .ROUTE .STK-MED ONE Stop: 12/21/20 09:03 Rocuronium Douglass (Rocuronium 50 Mg/5 Ml Vial) Confirm Administered Dose 50 mg .ROUTE .STK-MED ONE Stop: 12/21/20 12:11 Scopolamine (Scopolamine 1.5 Mg Transdermal Patch) Confirm Administered Dose 1.5 mg .ROUTE .STK-MED ONE Stop: 12/21/20 08:29 Succinylcholine Chloride (Succinylcholine 200 Mg/10 Ml Mdv) Confirm Administered Dose 200 mg .ROUTE .STK-MED ONE Stop: 12/21/20 07:13 - Exam Quality Assessment: Supplemental Oxygen Urinary Catheter Total Time: 1Days 0Hours General: Alert, Cooperative, No Acute Distress Neck: No JVD Lungs: Normal Respiratory Effort, Crackles (rare right lower lung ) Cardiovascular: Irregular Rhythm, Tachycardia GI/Abdominal Exam: Soft, No Distention Extremities: No Pedal Edema. No: Increased Warmth Skin: Warm, Dry Psy/Mental Status: Alert, Normal Affect Sepsis Event Note - Evaluation Sepsis Screening Result: Possible Sepsis Risk - Focused Exam Vital Signs: Vital Signs Temp Pulse Pulse Resp BP BP Pulse Ox 12/22/20 08:41 106 H 12/22/20 08:30 36.5 C 106 H 15 119/60 93 L 12/22/20 08:15 36.4 C 116 H 16 117/77 94 L 12/22/20 06:27 118 H 12/22/20 06:00 116 H 11 L 117/55 L 96 12/22/20 05:00 141 H 12 89/52 L 95 12/22/20 04:00 36.6 C 117 H 11 L 95/59 L 98 12/22/20 03:00 110 H 12 101/67 96 12/22/20 02:00 107 H 11 L 95/52 L 97 12/22/20 01:00 125 H 11 L 100/62 97 12/22/20 00:00 113 H 12 111/68 97 12/21/20 23:00 36.6 C 135 H 13 95/58 L 99 12/21/20 22:00 118 H 12 114/69 99 Consult PN Assessment/Plan POD#: 1 Procedures: Procedures AGENT NOS ASSAY W/OPTIC (04/06/20) AIRWAY INHALATION TREATMENT (05/25/20) ASSAY OF CK (CPK) (03/14/20) ASSAY OF FERRITIN (03/05/20) ASSAY OF LACTIC ACID (05/30/20) ASSAY OF MAGNESIUM (08/09/20) ASSAY OF NATRIURETIC PEPTIDE (05/30/20) ASSAY OF TROPONIN QUANT (08/09/20) BLOOD CULTURE FOR BACTERIA (04/06/20) BLOOD TRANSFUSION SERVICE (03/05/20) BLOOD TYPING SEROLOGIC ABO (05/30/20) BLOOD TYPING SEROLOGIC RH(D) (05/30/20) C DIFF AMPLIFIED PROBE (03/14/20) C-REACTIVE PROTEIN (04/06/20) CARCINOEMBRYONIC ANTIGEN (05/30/20) CARPAL TUNNEL SURGERY (02/18/13) COMPATIBILITY TEST ANTIGLOB (05/30/20) COMPATIBILITY TEST SPIN (05/30/20) COMPLETE CBC AUTOMATED (08/09/20) COMPLETE CBC W/AUTO DIFF WBC (05/30/20) COMPREHEN METABOLIC PANEL (05/30/20) CT ABD & PELV W/CONTRAST (05/30/20) CT ANGIOGRAPHY CHEST (05/28/20) CT THORAX DX C+ (05/30/20) CULTURE SCREEN ONLY (05/30/20) ELECTROCARDIOGRAM REPORT (03/14/20) ELECTROCARDIOGRAM TRACING (05/30/20) EMERGENCY DEPT VISIT (08/09/20) EMERGENCY DEPT VISIT (05/25/20) EMERGENCY DEPT VISIT (05/25/20) EMERGENCY DEPT VISIT (04/06/20) EMERGENCY DEPT VISIT (04/06/20) EMERGENCY DEPT VISIT (10/07/18) EVALUATE SWALLOWING FUNCTION (03/05/20) EXTREMITY STUDY (05/27/20) FIBRIN DEGRADATION QUANT (03/05/20) HEMOGLOBIN (05/30/20) HEPATIC FUNCTION PANEL (03/14/20) HOSPITAL DISCHARGE DAY (03/14/20) HOSPITAL DISCHARGE DAY (03/05/20) HYDRATE IV INFUSION ADD-ON (10/07/18) IMMUNOHISTO ANTB 1ST STAIN (05/30/20) IMMUNOHISTO ANTB ADDL SLIDE (05/30/20) INITIAL HOSPITAL CARE (03/05/20) INSERT TEMP BLADDER CATH (03/14/20) LACTATE (LD) (LDH) ENZYME (03/05/20) LEUKOCYTE ASSESSMENT FECAL (04/06/20) MEASURE BLOOD OXYGEN LEVEL (03/05/20) METABOLIC PANEL TOTAL CA (08/09/20) OCCULT BLD FECES 1-3 TESTS (05/30/20) OCCULT BLOOD FECES (04/06/20) PROCALCITONIN (PCT) (04/06/20) PROTHROMBIN TIME (03/05/20) PT EVAL MOD COMPLEX 30 MIN (05/30/20) RBC ANTIBODY SCREEN (05/30/20) ROUTINE VENIPUNCTURE (08/09/20) SELF CARE MNGMENT TRAINING (05/30/20) STOOL CULTR AEROBIC BACT EA (04/06/20) SUBSEQUENT HOSPITAL CARE (03/14/20) SUBSEQUENT HOSPITAL CARE (03/14/20) SUBSEQUENT HOSPITAL CARE (03/05/20) SUBSEQUENT HOSPITAL CARE (03/05/20) THER/PROPH/DIAG INJ IV PUSH (10/07/18) THER/PROPH/DIAG IV INF ADDON (03/14/20) THER/PROPH/DIAG IV INF INIT (08/09/20) THERAPEUTIC ACTIVITIES (05/30/20) THERAPEUTIC EXERCISES (05/30/20) TISSUE EXAM BY PATHOLOGIST (05/30/20) TTE W/DOPPLER COMPLETE (05/30/20) TX/PRO/DX INJ NEW DRUG ADDON (03/05/20) TX/PRO/DX INJ SAME DRUG STEWARD/STEWARDESS RAILROAD DINING CAR (03/14/20) TX/PROPH/DG ADDL SEQ IV INF (03/14/20) URINALYSIS AUTO W/SCOPE (08/09/20) URINE CULTURE/COLONY COUNT (03/05/20) US EXAM ABDOM COMPLETE (03/14/20) X-RAY EXAM CHEST 1 VIEW (05/30/20) X-RAY EXAM OF SHOULDER (03/14/20) (1) Atrial fibrillation with RVR SNOMED Code(s): 271829194675195 Code(s): I48.91 - UNSPECIFIED ATRIAL FIBRILLATION Current Visit: No Problem List Initiated/Reviewed/Updated: Yes My Orders Last 24 Hours: My Active Orders 12/21/20 18:00 Norepinephrine [Levophed] 8 mg Dextrose 5% in Water 250 ml IV TITRATE 12/22/20 04:30 Diltiazem [Cardizem] 100 mg Sodium Chloride 0.9% [Normal Saline] 100 ml IV TITRATE 12/22/20 09:00 Metoprolol Tartrate [Lopressor] 25 mg PO Q12H Plan: ASSESSMENT AND PLAN - Rectal cancer status post APR-long and extensive surgery completed on 12/21. Received 2 units of blood during surgery and is receiving another unit this morning. Pain is well controlled. -Postoperative care as per the surgical team Rapid atrial fibrillation-history of atrial fibrillation, previously rate controlled. Decent rate control overnight. Hopefully getting oral propafenone and metoprolol on board will allow us to taper down and discontinue the diltiazem. -Continue propafenone -Metoprolol 25 mg every 12 hours -Additional rate control as indicated -Continue cardiac monitoring Postoperative hypotension-probably related to third spacing. He did require norepinephrine overnight but blood pressures have been on the rise. Hopefully we can wean down and wean off the norepinephrine throughout the day today. -Titrate down norepinephrine as able Anemia due to blood loss-received 2 units of blood yesterday during surgery and is receiving another unit of blood this morning. Hemoglobin was 9.4 this morning. -I would recommend a transfusion threshold of the hemoglobin less than 8 Acute kidney injury-creatinine has more than doubled from baseline but is slightly better today. I would anticipate this will improve further as he recovers from surgery. History of congestive heart failure-patient will need close monitoring for signs of volume overload. He currently does not have any JVD. I would anticipate we will need to start diuresis in the next day or 2. Maintenance issues - -DVT prophylaxis-mechanical -GI prophylaxis-PPI -Nutrition-clear liquids -Gan catheter-necessary for strict intake and output monitoring Antonio Washington M.D.
[2020-12-22] MEDS: SCOPOLAMINE PATCH CHECK TOP SCH (09:10)
[2020-12-22] MEDS: Metoprolol Tartrate 25 MG Tab PO SCH ×3 (09:14→20:04)
[2020-12-22] MEDS: atorvaSTATin 10 MG Tab PO SCH (09:14)
[2020-12-22] MEDS: Aspirin 81 MG Tab.EC PO SCH (09:15)
[2020-12-22] MEDS: Norepinephrine 8 MG in Dextrose 5% in Water 250 ML IV SCH ×2 (12:30)
[2020-12-22] MEDS: Pantoprazole 40 MG Vial IV SCH (16:17)
[2020-12-22] MEDS ORDERED: diphenhydrAMINE 25 MG Cap PO PRN (17:58)
[2020-12-22] MEDS ORDERED: Naloxone 0.4 MG/ML SDV IVPUSH PRN (19:36)
[2020-12-22] MEDS: Tamsulosin 0.4 MG Cap.ER PO SCH (20:06)
[2020-12-22] MEDS: Melatonin 3 MG Tab PO SCH (20:06)
[2020-12-22] MEDS ORDERED: Dextrose 5%-Lactated Ringers 1,000 ML IV SCH (22:30)
[2020-12-23] MEDS: fentaNYL 2,500 MCG in Sodium Chloride 0.9% 200 ML EPIDUR SCH (02:29)
[2020-12-23] MEDS: cefOXitin 2 GM in Sodium Chloride 0.9% 50 ML IV SCH ×2 (03:37→10:28)
[2020-12-23] MEDS ORDERED: Midazolam 1 MG/ML 2 ML SDV IVPUSH ONE (05:53)
[2020-12-23] MEDS: Metoprolol Tartrate 25 MG Tab PO SCH ×3 (05:57→23:21)
[2020-12-23] MEDS ORDERED: Lidocaine 1% with EPINEPHrine 1:100,000 50 ML MDV ONE (06:35)
[2020-12-23] MEDS ORDERED: Meropenem 500 MG SDV ONE (06:35)
[2020-12-23] MEDS ORDERED: Bupivacaine 0.5% 50 ML MDV ONE (06:35)
[2020-12-23] MEDS ORDERED: Propofol 200 MG/20 ML SDV ONE ×2 (07:09→08:04)
[2020-12-23] MEDS ORDERED: Lactated Ringers 1,000 ML ONE (07:38)
--- NOTE | 2020-12-23 09:03 | CR ---
CHEST: Portable 12/23/2020 at 8:41 AM CLINICAL HISTORY:Central line placement COMPARISON:CT May 2020 FINDINGS: There is free intraperitoneal air. There is gaseous distention of small bowel. Heart is enlarged. Pulmonary vascularity is normal. There is a right subclavian catheter. It ascends the right jugular vein. There is no pneumothorax. Impression: Right central venous line ascends the right jugular vein Free intraperitoneal air and small bowel distention
[2020-12-23] MEDS ORDERED: Midazolam 1 MG/ML 2 ML SDV IV PRN (09:24)
--- NOTE | 2020-12-23 09:24 | PCM.CONSN ---
- General Info Date of Service: 12/23/20 Subjective Update: Patient is confused this morning and does not offer any reliable history. He is able to tell me that his abdomen hurts and that he does not feel short of breath. He had some difficulty with confusion overnight and received a dose of midazolam this morning to help with agitation. He has remained in atrial fibrillation with variable rate control. He has not had any fevers. The norepinephrine has been weaned down and turned off as of this morning. Functional Status: Reports: Pain Controlled - Review of Systems General: Denies: Fever Gastrointestinal: Reports: Abdominal Pain - Patient Data Vitals - Most Recent: Last Vital Signs Temp 36.3 C 12/23/20 08:50 Pulse 133 H 12/23/20 08:50 Resp 14 12/23/20 08:50 BP 96/47 L 12/23/20 08:50 Pulse Ox 94 L 12/23/20 08:50 Weight - Most Recent: 91.626 kg I&O - Last 24 Hours: Intake & Output 12/22/20 12/23/20 12/23/20 22:59 06:59 14:59 Intake Total 2007 Output Total 455 550 Balance 1553 -550 Lab Results Last 24 Hours: Laboratory Results - last 24 hr 12/21/20 12/22/20 12/22/20 Range/Units 06:06 17:58 17:58 WBC 11.8 H (4.5-11.0) K/uL RBC 3.46 L (4.30-5.90) M/uL Hgb 9.3 L (12.0-15.0) g/dL Hct 30.0 L (40.0-54.0) % MCV 87 (80-98) fL MCH 27 (27-31) pg MCHC 31 L (32-36) % Plt Count 166 (150-400) K/uL Sodium 137 L (140-148) mmol/L Potassium 4.2 (3.6-5.2) mmol/L Chloride 103 (100-108) mmol/L Carbon Dioxide 28 (21-32) mmol/L Anion Gap 10.2 (5.0-14.0) mmol/L BUN 28 H (7-18) mg/dL Creatinine 1.5 H (0.8-1.3) mg/dL Est Cr Clr Drug Dosing 35.15 mL/min Estimated GFR (MDRD) 44 L (>60) Glucose 118 H (74-106) mg/dL Calcium 8.7 (8.5-10.1) mg/dL Phosphorus (2.5-4.9) mg/dL Magnesium (1.8-2.4) mg/dL Total Bilirubin (0.2-1.0) mg/dL AST (15-37) U/L ALT (12-78) U/L Alkaline Phosphatase (46-116) U/L NT-Pro-B Natriuret Pep (5-450) pg/mL Total Protein (6.4-8.2) g/dL Albumin (3.4-5.0) g/dL Globulin (2.3-3.5) g/dL Albumin/Globulin Ratio (1.2-2.2) Blood Type A NEGATIVE Gel Antibody Screen Negative Crossmatch See Detail 12/22/20 12/23/20 12/23/20 Range/Units 17:58 04:45 04:45 WBC 9.1 (4.5-11.0) K/uL RBC 3.29 L (4.30-5.90) M/uL Hgb 8.8 L (12.0-15.0) g/dL Hct 29.1 L (40.0-54.0) % MCV 88 (80-98) fL MCH 27 (27-31) pg MCHC 30 L (32-36) % Plt Count 145 L (150-400) K/uL Sodium 138 L (140-148) mmol/L Potassium 4.0 (3.6-5.2) mmol/L Chloride 104 (100-108) mmol/L Carbon Dioxide 29 (21-32) mmol/L Anion Gap 9.0 (5.0-14.0) mmol/L BUN 23 H (7-18) mg/dL Creatinine 1.4 H (0.8-1.3) mg/dL Est Cr Clr Drug Dosing 37.66 mL/min Estimated GFR (MDRD) 48 L (>60) Glucose 114 H (74-106) mg/dL Calcium 8.4 L (8.5-10.1) mg/dL Phosphorus 2.3 L (2.5-4.9) mg/dL Magnesium 2.1 (1.8-2.4) mg/dL Total Bilirubin 0.5 (0.2-1.0) mg/dL AST 37 (15-37) U/L ALT 21 (12-78) U/L Alkaline Phosphatase 52 (46-116) U/L NT-Pro-B Natriuret Pep 3160 H 3001 H (5-450) pg/mL Total Protein 4.8 L (6.4-8.2) g/dL Albumin 2.1 L (3.4-5.0) g/dL Globulin 2.7 (2.3-3.5) g/dL Albumin/Globulin Ratio 0.8 L (1.2-2.2) Blood Type Gel Antibody Screen Crossmatch Med Orders - Current: Current Medications Alvimopan (Alvimopan 12 Mg Capsule) 12 mg PO Q12H [facility] Stop: 12/28/20 08:01 Last Admin: 12/22/20 20:06 Dose: 12 mg Documented by: Aspirin (Aspirin 81 Mg Tab.Ec) 81 mg PO DAILY [facility] Last Admin: 12/22/20 09:15 Dose: 81 mg Documented by: Atorvastatin Calcium (Atorvastatin 10 Mg Tab) 10 mg PO DAILY [facility] Last Admin: 12/22/20 09:14 Dose: 10 mg Documented by: Diphenhydramine HCl (Diphenhydramine 25 Mg Cap) 25 mg PO Q4H PRN PRN Reason: Itching Hydroxyzine HCl (Hydroxyzine Hcl 100 Mg/2 Ml Sdv) 0 mg IM Q4H PRN PRN Reason: PAIN Cefoxitin Sodium 2 gm/ Sodium (Chloride) 50 mls @ 100 mls/hr IV Q6H [facility] Stop: 12/23/20 10:29 Last Admin: 12/23/20 03:37 Dose: 100 mls/hr Documented by: Norepinephrine Bitartrate 8 mg (/ Dextrose/Water) 258 mls @ 3.87 mls/hr IV TITRATE MARCELO; Protocol Last Infusion: 12/22/20 23:28 Dose: 2 mcg/min, 3.87 mls/hr Documented by: Dextrose/Lactated Ringer's (Dextrose 5%-Lactated Ringers) 1,000 mls @ 100 mls/hr IV ASDIRECTED MARCELO Albumin Human (Albumin 25%) 25 gm in 100 mls @ 25 mls/hr IV Q24H [facility] Stop: 12/25/20 13:59 Melatonin (Melatonin 3 Mg Tab) 9 mg PO BEDTIME [facility] Last Admin: 12/22/20 20:06 Dose: 9 mg Documented by: Metoprolol Tartrate (Metoprolol Tartrate 25 Mg Tab) 25 mg PO Q12H [facility] Last Admin: 12/23/20 05:57 Dose: 25 mg Documented by: Scopolamine Patch (Check) 1 each TOP DAILY [facility] Last Admin: 12/22/20 09:10 Dose: Not Given Documented by: Ondansetron HCl (Ondansetron 4 Mg/2 Ml Sdv) 4 mg IVPUSH Q4H PRN PRN Reason: Nausea Pantoprazole Sodium (Pantoprazole 40 Mg Vial) 40 mg IV Q24H [facility] Last Admin: 12/22/20 16:17 Dose: 40 mg Documented by: Propafenone HCl (Propafenone 150 Mg Tab) 225 mg PO TID MARCELO Scopolamine (Scopolamine 1.5 Mg Transdermal Patch) 1.5 mg TOP Q72H [facility]O Tamsulosin HCl (Tamsulosin 0.4 Mg Cap.Er) 0.4 mg PO BEDTIME [facility] Last Admin: 12/22/20 20:06 Dose: 0.4 mg Documented by: Discontinued Medications Acetaminophen (Acetaminophen 500 Mg Tab) 1,000 mg PO ONETIME ONE Stop: 12/21/20 05:46 Last Admin: 12/21/20 06:20 Dose: 1,000 mg Documented by: Alvimopan (Alvimopan 12 Mg Capsule) 12 mg PO ONETIME ONE Stop: 12/21/20 06:37 Last Admin: 12/21/20 07:02 Dose: 12 mg Documented by: Bupivacaine HCl (Bupivacaine 0.5% 50 Ml Mdv) Confirm Administered Dose 50 ml .ROUTE .STK-MED ONE Stop: 12/21/20 06:40 Bupivacaine HCl (Bupivacaine 0.5% 50 Ml Mdv) Confirm Administered Dose 50 ml .ROUTE .STK-MED ONE Stop: 12/23/20 06:36 Cefoxitin Sodium (Cefoxitin 2 Gm Vial) Confirm Administered Dose 2 gm .ROUTE .ST K-MED ONE Stop: 12/21/20 12:39 Meropenem 500 mg/ Sodium (Chloride 750 ml) 0 mg .XX ONETIME ONE Stop: 12/21/20 07:16 Last Admin: 12/21/20 07:10 Dose: 700 cont Documented by: Ropivacaine 45 ml/Dexamethasone 8 mg/Epinephrine HCl 0.4 mg/ Sodium Chloride 32.6 ml 0 ml NERVRT ASDIRECTED [facility] Last Admin: 12/23/20 08:36 Dose: 80 syringe Documented by: Dexamethasone (Dexamethasone 4 Mg/Ml Sdv) Confirm Administered Dose 4 mg .ROUTE .STK-MED ONE Stop: 12/21/20 07:13 Digoxin (Digoxin 500 Mcg/2 Ml Amp) 125 mcg IVPUSH ONETIME ONE Stop: 12/21/20 17:16 Last Admin: 12/21/20 17:15 Dose: 125 mcg Documented by: Digoxin (Digoxin 500 Mcg/2 Ml Amp) Confirm Administered Dose 500 mcg .ROUTE .STK-MED ONE Stop: 12/21/20 17:14 Last Admin: 12/21/20 17:27 Dose: Not Given Documented by: Fentanyl (Fentanyl 250 Mcg/5 Ml Sdv) Confirm Administered Dose 250 mcg .ROUTE .STK-MED ONE Stop: 12/21/20 07:12 Fentanyl (Fentanyl 100 Mcg/2 Ml Sdv) Confirm Administered Dose 100 mcg .ROUTE .STK-MED ONE Stop: 12/21/20 12:20 Fentanyl (Fentanyl 100 Mcg/2 Ml Sdv) Confirm Administered Dose 100 mcg .ROUTE .STK-MED ONE Stop: 12/21/20 14:19 Glycopyrrolate (Glycopyrrolate 0.2 Mg/Ml 5 Ml Mdv) Confirm Administered Dose 1 mg .ROUTE .STK-MED ONE Stop: 12/21/20 07:13 Heparin Sodium (Porcine) (Heparin Sodium 100 Units/Ml 5 Ml Syringe) Confirm Administered Dose 1,000 units .ROUTE .STK-MED ONE Stop: 12/23/20 06:56 Dextrose/Lactated Ringer's (Dextrose 5%-Lactated Ringers) 1,000 mls @ 100 mls/hr IV ASDIRECTED [facility] Last Admin: 12/21/20 06:20 Dose: 100 mls/hr Documented by: Cefoxitin Sodium 2 gm/ Sodium (Chloride) 50 mls @ 100 mls/hr IV ONETIME ONE Stop: 12/21/20 08:14 Last Admin: 12/21/20 07:52 Dose: 100 mls/hr Documented by: Linezolid (Zyvox) Confirm Administered Dose 300 mls @ as directed .ROUTE .STK- MED ONE Stop: 12/21/20 06:40 Fentanyl 2,500 mcg/ Sodium (Chloride) 250 mls @ 0 mls/hr EPIDUR TITRATE MARCELO; Protocol Last Admin: 12/23/20 02:29 Dose: 8 mls/hr, 8 mls/hr Documented by: Sodium Chloride (Normal Saline) Confirm Administered Dose 10 mls @ as directed .ROUTE .[facility]-MED ONE Stop: 12/21/20 07:15 Sodium Chloride (Normal Saline) Confirm Administered Dose 10 mls @ as directed .ROUTE .[facility]-MED ONE Stop: 12/21/20 08:35 Lactated Ringer's (Ringers, Lactated) Confirm Administered Dose 1,000 mls @ as directed .ROUTE .[facility] ONE Stop: 12/21/20 09:49 Linezolid (Zyvox) Confirm Administered Dose 300 mls @ as directed .ROUTE .[facility] ONE Stop: 12/21/20 09:50 Sodium Chloride (Normal Saline) Confirm Administered Dose 10 mls @ as directed .ROUTE .[facility] ONE Stop: 12/21/20 12:39 Lactated Ringer's (Ringers, Lactated) Confirm Administered Dose 1,000 mls @ as directed .ROUTE .[facility] ONE Stop: 12/21/20 13:24 Dextrose/Lactated Ringer's (Dextrose 5%-Lactated Ringers) 1,000 mls @ 75 mls/hr IV ASDIRECTED [facility] Last Admin: 12/22/20 20:01 Dose: 100 mls/hr Documented by: Lactated Ringer's (Ringers, Lactated) 1,000 mls @ 100 mls/hr IV ASDIRECTED [facility] Last Admin: 12/22/20 08:31 Dose: 100 mls/hr Documented by: Lactated Ringer's (Ringers, Lactated) 500 mls @ 999 mls/hr IV ASDIRECTED MARCELO Stop: 12/21/20 17:46 Last Admin: 12/21/20 17:10 Dose: 999 mls/hr Documented by: Lactated Ringer's (Ringers, Lactated) 500 mls @ 999 mls/hr IV ASDIRECTED MARCELO Stop: 12/21/20 18:31 Last Admin: 12/21/20 18:00 Dose: 999 mls/hr Documented by: Magnesium Sulfate 2 gm/ Premix 50 mls @ 25 mls/hr IV Q6H [facility]O Stop: 12/22/20 02:14 Last Admin: 12/21/20 23:50 Dose: 25 mls/hr Documented by: Esmolol HCl (Esmolol Hcl In Sterile Water 2,500 Mg/250 Ml) 250 mls @ 27.488 mls/hr IV TITRATE MARCELO; Protocol Last Admin: 12/22/20 03:23 Dose: 300 mcg/kg/min, 164.927 mls/hr Documented by: Diltiazem HCl 100 mg/ Sodium (Chloride) 100 mls @ 5 mls/hr IV TITRATE MARCELO; Protocol Last Titration: 12/22/20 09:58 Dose: 13 mg/hr, 13 mls/hr Documented by: Lactated Ringer's (Ringers, Lactated) Confirm Administered Dose 1,000 mls @ as directed .ROUTE .STK-MED ONE Stop: 12/23/20 07:39 Lidocaine/Epinephrine (Lidocaine 1% With Epinephrine 1:100,000 50 Ml Mdv) Confirm Administered Dose 50 ml .ROUTE .STK-MED ONE Stop: 12/21/20 06:40 Lidocaine/Epinephrine (Lidocaine 1% With Epinephrine 1:100,000 50 Ml Mdv) Confirm Administered Dose 50 ml .ROUTE .STK-MED ONE Stop: 12/23/20 06:36 Linezolid (Linezolid 600 Mg/300 Ml Bag) 1,200 mg IRR .STK-MED ONE Stop: 12/21/20 09:59 Last Admin: 12/21/20 09:58 Dose: 1,200 mg Documented by: Meropenem (Meropenem 500 Mg Sdv) Confirm Administered Dose 500 mg .ROUTE .STK- MED ONE Stop: 12/21/20 06:40 Last Admin: 12/21/20 09:58 Dose: 1,000 mg Documented by: Meropenem (Meropenem 500 Mg Sdv) Confirm Administered Dose 500 mg .ROUTE .STK- MED ONE Stop: 12/21/20 09:50 Meropenem (Meropenem 500 Mg Sdv) Confirm Administered Dose 500 mg .ROUTE .STK- MED ONE Stop: 12/23/20 06:36 Metoprolol Tartrate (Metoprolol Tartrate 25 Mg Tab) 12.5 mg PO BID MARCELO Last Admin: 12/21/20 20:29 Dose: Not Given Documented by: Metoprolol Tartrate (Metoprolol Tartrate 5 Mg/5 Ml Sdv) 5 mg IVPUSH ONETIME ONE Stop: 12/21/20 17:01 Last Admin: 12/22/20 20:18 Dose: Not Given Documented by: Metoprolol Tartrate (Metoprolol Tartrate 5 Mg/5 Ml Sdv) 5 mg IVPUSH Q4H [facility] Last Admin: 12/21/20 19:37 Dose: 5 mg Documented by: Midazolam HCl (Midazolam 1 Mg/Ml 2 Ml Sdv) 1 mg IVPUSH ONETIME ONE Stop: 12/23/20 05:54 Last Admin: 12/23/20 06:10 Dose: 1 mg Documented by: Naloxone HCl (Naloxone 0.4 Mg/Ml Sdv) 0.1 mg IVPUSH Q5M PRN PRN Reason: RESP RATE LESS THAN 6/MINUTE Naloxone HCl (Naloxone 0.4 Mg/Ml Sdv) 0.4 mg IVPUSH ONETIME PRN PRN Reason: Itching Last Admin: 12/22/20 20:00 Dose: 0.4 mg Documented by: Neostigmine Methylsulfate (Neostigmine Methylsulfate 1 Mg/Ml 5 Ml Syringe) Confirm Administered Dose 5 mg .ROUTE .STK-MED ONE Stop: 12/21/20 07:13 Ondansetron HCl (Ondansetron 4 Mg/2 Ml Sdv) Confirm Administered Dose 4 mg .ROUTE .STK-MED ONE Stop: 12/21/20 07:13 Propafenone HCl (Propafenone 150 Mg Tab) 225 mg PO DAILY [facility] Last Admin: 12/22/20 08:41 Dose: Not Given Documented by: Propofol (Propofol 200 Mg/20 Ml Sdv) Confirm Administered Dose 200 mg .ROUTE .STK-MED ONE Stop: 12/21/20 07:13 Propofol (Propofol 200 Mg/20 Ml Sdv) Confirm Administered Dose 200 mg .ROUTE .STK-MED ONE Stop: 12/23/20 07:10 Propofol (Propofol 200 Mg/20 Ml Sdv) Confirm Administered Dose 200 mg .ROUTE .STK-MED ONE Stop: 12/23/20 08:05 Rocuronium [place] (Rocuronium 50 Mg/5 Ml Vial) Confirm Administered Dose 50 mg .ROUTE .STK-MED ONE Stop: 12/21/20 07:13 Rocuronium [place] (Rocuronium 50 Mg/5 Ml Vial) Confirm Administered Dose 50 mg .ROUTE .STK-MED ONE Stop: 12/21/20 09:03 Rocuronium [place] (Rocuronium 50 Mg/5 Ml Vial) Confirm Administered Dose 50 mg .ROUTE .STK-MED ONE Stop: 12/21/20 12:11 Scopolamine (Scopolamine 1.5 Mg Transdermal Patch) Confirm Administered Dose 1.5 mg .ROUTE .STK-MED ONE Stop: 12/21/20 08:29 Succinylcholine Chloride (Succinylcholine 200 Mg/10 Ml Mdv) Confirm Administered Dose 200 mg .ROUTE .STK-MED ONE Stop: 12/21/20 07:13 - Exam Quality Assessment: No: Supplemental Oxygen Urinary Catheter Total Time: 1Days 19Hours General: Alert, Cooperative, No Acute Distress. No: Oriented Lungs: Normal Respiratory Effort, Crackles (both lower lungs ) Cardiovascular: Irregular Rhythm, Tachycardia GI/Abdominal Exam: Soft, No Distention. No: Normal Bowel Sounds (hypoactive ) Extremities: No Pedal Edema. No: Increased Warmth Skin: Warm, Dry Psy/Mental Status: Alert. No: Agitated Sepsis Event Note - Evaluation Sepsis Screening Result: Possible Sepsis Risk - Focused Exam Vital Signs: Vital Signs Temp Pulse Pulse Resp BP BP Pulse Ox 12/23/20 08:50 36.3 C 133 H 14 96/47 L 94 L 12/23/20 08:45 137 H 14 97/56 L 95 12/23/20 08:40 140 H 12 95/46 L 96 12/23/20 08:36 147 H 12 98/54 L 92 L 12/23/20 08:30 36.7 C 138 H 13 90/49 L 98 12/23/20 06:00 126 H 12 107/64 99 12/23/20 05:57 126 H 107/64 12/23/20 04:00 107 H 13 105/52 L 98 12/23/20 03:00 86 18 92/47 L 96 12/23/20 02:00 104 H 14 109/55 L 99 12/23/20 01:00 99 14 105/61 96 12/23/20 00:00 103 H 12 116/52 L 98 12/22/20 23:00 35.7 C L 112 H 12 113/59 L 98 12/22/20 22:00 103 H 14 120/61 97 Consult PN Assessment/Plan POD#: 2 Procedures: Procedures AGENT NOS ASSAY W/OPTIC (04/06/20) AIRWAY INHALATION TREATMENT (05/25/20) ASSAY OF CK (CPK) (03/14/20) ASSAY OF FERRITIN (03/05/20) ASSAY OF LACTIC ACID (05/30/20) ASSAY OF MAGNESIUM (08/09/20) ASSAY OF NATRIURETIC PEPTIDE (05/30/20) ASSAY OF TROPONIN QUANT (08/09/20) BLOOD CULTURE FOR BACTERIA (04/06/20) BLOOD TRANSFUSION SERVICE (03/05/20) BLOOD TYPING SEROLOGIC ABO (05/30/20) BLOOD TYPING SEROLOGIC RH(D) (05/30/20) C DIFF AMPLIFIED PROBE (03/14/20) C-REACTIVE PROTEIN (04/06/20) CARCINOEMBRYONIC ANTIGEN (05/30/20) CARPAL TUNNEL SURGERY (02/18/13) COMPATIBILITY TEST ANTIGLOB (05/30/20) COMPATIBILITY TEST SPIN (05/30/20) COMPLETE CBC AUTOMATED (08/09/20) COMPLETE CBC W/AUTO DIFF WBC (05/30/20) COMPREHEN METABOLIC PANEL (05/30/20) CT ABD & PELV W/CONTRAST (05/30/20) CT ANGIOGRAPHY CHEST (05/28/20) CT THORAX DX C+ (05/30/20) CULTURE SCREEN ONLY (05/30/20) ELECTROCARDIOGRAM REPORT (03/14/20) ELECTROCARDIOGRAM TRACING (05/30/20) EMERGENCY DEPT VISIT (08/09/20) EMERGENCY DEPT VISIT (05/25/20) EMERGENCY DEPT VISIT (05/25/20) EMERGENCY DEPT VISIT (04/06/20) EMERGENCY DEPT VISIT (04/06/20) EMERGENCY DEPT VISIT (10/07/18) EVALUATE SWALLOWING FUNCTION (03/05/20) EXTREMITY STUDY (05/27/20) FIBRIN DEGRADATION QUANT (03/05/20) HEMOGLOBIN (05/30/20) HEPATIC FUNCTION PANEL (03/14/20) HOSPITAL DISCHARGE DAY (03/14/20) HOSPITAL DISCHARGE DAY (03/05/20) HYDRATE IV INFUSION ADD-ON (10/07/18) IMMUNOHISTO ANTB 1ST STAIN (05/30/20) IMMUNOHISTO ANTB ADDL SLIDE (05/30/20) INITIAL HOSPITAL CARE (03/05/20) INSERT TEMP BLADDER CATH (03/14/20) LACTATE (LD) (LDH) ENZYME (03/05/20) LEUKOCYTE ASSESSMENT FECAL (04/06/20) MEASURE BLOOD OXYGEN LEVEL (03/05/20) METABOLIC PANEL TOTAL CA (08/09/20) OCCULT BLD FECES 1-3 TESTS (05/30/20) OCCULT BLOOD FECES (04/06/20) PROCALCITONIN (PCT) (04/06/20) PROTHROMBIN TIME (03/05/20) PT EVAL MOD COMPLEX 30 MIN (05/30/20) RBC ANTIBODY SCREEN (05/30/20) ROUTINE VENIPUNCTURE (08/09/20) SELF CARE MNGMENT TRAINING (05/30/20) STOOL CULTR AEROBIC BACT EA (04/06/20) SUBSEQUENT HOSPITAL CARE (03/14/20) SUBSEQUENT HOSPITAL CARE (03/14/20) SUBSEQUENT HOSPITAL CARE (03/05/20) SUBSEQUENT HOSPITAL CARE (03/05/20) THER/PROPH/DIAG INJ IV PUSH (10/07/18) THER/PROPH/DIAG IV INF ADDON (03/14/20) THER/PROPH/DIAG IV INF INIT (08/09/20) THERAPEUTIC ACTIVITIES (05/30/20) THERAPEUTIC EXERCISES (05/30/20) TISSUE EXAM BY PATHOLOGIST (05/30/20) TTE W/DOPPLER COMPLETE (05/30/20) TX/PRO/DX INJ NEW DRUG ADDON (03/05/20) TX/PRO/DX INJ SAME DRUG SOFTWARE PROGRAM MANAGER (03/14/20) TX/PROPH/DG ADDL SEQ IV INF (03/14/20) URINALYSIS AUTO W/SCOPE (08/09/20) URINE CULTURE/COLONY COUNT (03/05/20) US EXAM ABDOM COMPLETE (03/14/20) X-RAY EXAM CHEST 1 VIEW (05/30/20) X-RAY EXAM OF SHOULDER (03/14/20) (1) Atrial fibrillation with RVR SNOMED Code(s): 511909831938484 Code(s): I48.91 - UNSPECIFIED ATRIAL FIBRILLATION Current Visit: No Problem List Initiated/Reviewed/Updated: Yes My Orders Last 24 Hours: My Active Orders 12/22/20 09:00 Metoprolol Tartrate [Lopressor] 25 mg PO Q12H 12/22/20 17:58 diphenhydrAMINE [Benadryl] 25 mg PO Q4H PRN 12/22/20 21:00 Melatonin 9 mg PO BEDTIME 12/23/20 08:15 Propafenone [Rythmol] 225 mg PO TID 12/23/20 09:20 Furosemide [Lasix] 20 mg IVPUSH ONETIME ONE 12/23/20 09:21 Haloperidol Lactate [Haldol] 2.5 mg IVPUSH Q4H PRN Plan: ASSESSMENT AND PLAN - 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 Epidural discontinued because of confusion. Surgical team ordered a unit of packed red blood cells again this morning. He is starting to display evidence for volume overload with postoperative volume resuscitation. -Limit IV fluids as able -Dose of furosemide this morning and reassess this afternoon -Postoperative care as per the surgical team Rapid atrial fibrillation-suboptimal rate control but overall rate control has been improving. -Metoprolol 25 mg every 12 hours -Propafenone 3 times a day -Additional rate control if indicated -Continue cardiac monitoring Postoperative hypotension-probably related to third spacing. He has been weaned off of the norepinephrine. Anemia due to blood loss-received 2 units of blood during surgery, a third unit on 12/22 and is receiving another unit of blood this morning. Hemoglobin was less than 9 this morning. -I would recommend a transfusion threshold of the hemoglobin less than 8 Acute kidney injury-creatinine has trended down over the past 48 hours. History of congestive heart failure-patient will need close monitoring for signs of volume overload. He currently does not have any JVD. I would anticipate we will need to start diuresis in the next day or 2. Maintenance issues - -DVT prophylaxis-mechanical -GI prophylaxis-PPI -Nutrition-clear liquids -Gan catheter-necessary for strict intake and output monitoring Antonio Washington M.D.
[2020-12-23] MEDS ORDERED: HYDROmorphone/Normal Saline 15 MG/30 ML PCA IV PRN (09:29)
[2020-12-23] MEDS ORDERED: Furosemide 20 MG/2 ML VIAL IVPUSH ONE (09:30)
[2020-12-23] MEDS ORDERED: Naloxone 0.4 MG/ML SDV IV PRN (10:00)
[2020-12-23] MEDS: atorvaSTATin 10 MG Tab PO SCH (10:16)
[2020-12-23] MEDS: Aspirin 81 MG Tab.EC PO SCH (10:16)
[2020-12-23] MEDS: SCOPOLAMINE PATCH CHECK TOP SCH (10:17)
[2020-12-23] MEDS: Potassium Phosphates 22.5 MMOLE in Sodium Chloride 0.9% 100 ML IV SCH ×2 (10:52→15:06)
[2020-12-23] MEDS: Haloperidol Lactate 5 MG/ML SDV IVPUSH PRN (13:18)
[2020-12-23] MEDS: 1: AA 5%/Calcium/D15W/Lytes 1,000 ML with MVI, Adult with Vitamin K 10 ML, Zinc/Copper/M IV SCH ×3 (13:46)
[2020-12-23] MEDS: Pantoprazole 40 MG Vial IV SCH (15:13)
[2020-12-23] MEDS: Tamsulosin 0.4 MG Cap.ER PO SCH (20:46)
[2020-12-23] MEDS: Melatonin 3 MG Tab PO SCH (20:46)
[2020-12-24] MEDS: 1: AA 5%/Calcium/D15W/Lytes 1,000 ML with MVI, Adult with Vitamin K 10 ML, Zinc/Copper/M IV SCH ×6 (01:59→16:57)
[2020-12-24] MEDS: Metoprolol Tartrate 25 MG Tab PO SCH ×3 (03:12→20:21)
[2020-12-24] MEDS: Furosemide 20 MG/2 ML VIAL IVPUSH SCH ×2 (08:55→14:02)
[2020-12-24] MEDS ORDERED: Scopolamine 1.5 MG Transdermal Patch TOP SCH (09:00)
[2020-12-24] MEDS: atorvaSTATin 10 MG Tab PO SCH (09:09)
[2020-12-24] MEDS: Aspirin 81 MG Tab.EC PO SCH (09:10)
[2020-12-24] MEDS: Docusate Sodium 100 MG Cap PO SCH ×2 (09:11→20:19)
[2020-12-24] MEDS: Bisacodyl 5 MG Tab PO SCH ×2 (09:11→20:19)
[2020-12-24] MEDS: SCOPOLAMINE PATCH CHECK TOP SCH (09:12)
--- NOTE | 2020-12-24 09:20 | PCM.CONSN ---
- General Info Date of Service: 12/24/20 Subjective Update: There were no acute events overnight. Patient is more alert and interactive today. Tolerating liquids so far. He had an uneventful delayed primary closure today. Tolerating TPN. Heart rate has been under much better control with oral medications. Urine output has been good. Kidney function steadily improving. He has not been hypoxic for the most part. Overall doing better today. Functional Status: Reports: Pain Controlled, Tolerating Diet - Review of Systems General: Denies: Fever Gastrointestinal: Reports: Abdominal Pain - Patient Data Vitals - Most Recent: Last Vital Signs Temp 36.3 C 12/24/20 08:50 Pulse 82 12/24/20 09:13 Resp 12 12/24/20 08:50 BP 153/81 H 12/24/20 09:13 Pulse Ox 97 12/24/20 07:49 Weight - Most Recent: 91.626 kg I&O - Last 24 Hours: Intake & Output 12/23/20 12/24/20 12/24/20 22:59 06:59 14:59 Intake Total 709 1211 0 Output Total 650 885 280 Balance 59 326 -280 Lab Results Last 24 Hours: Laboratory Results - last 24 hr 12/21/20 12/23/20 12/23/20 Range/Units 06:06 17:00 17:00 WBC 7.0 (4.5-11.0) K/uL RBC 3.13 L (4.30-5.90) M/uL Hgb 8.5 L (12.0-15.0) g/dL Hct 27.6 L (40.0-54.0) % MCV 88 (80-98) fL MCH 27 (27-31) pg MCHC 31 L (32-36) % Plt Count 113 L (150-400) K/uL Sodium 137 L (140-148) mmol/L Potassium 4.7 (3.6-5.2) mmol/L Chloride 104 (100-108) mmol/L Carbon Dioxide 27 (21-32) mmol/L Anion Gap 10.7 (5.0-14.0) mmol/L BUN 22 H (7-18) mg/dL Creatinine 1.1 (0.8-1.3) mg/dL Est Cr Clr Drug Dosing 47.93 mL/min Estimated GFR (MDRD) > 60 (>60) Glucose 180 H (74-106) mg/dL Calcium 8.7 (8.5-10.1) mg/dL Phosphorus (2.5-4.9) mg/dL Magnesium (1.8-2.4) mg/dL Total Bilirubin (0.2-1.0) mg/dL AST (15-37) U/L ALT (12-78) U/L Alkaline Phosphatase (46-116) U/L NT-Pro-B Natriuret Pep 4543 H (5-450) pg/mL Total Protein (6.4-8.2) g/dL Albumin (3.4-5.0) g/dL Globulin (2.3-3.5) g/dL Albumin/Globulin Ratio (1.2-2.2) Blood Type A NEGATIVE Gel Antibody Screen Negative Crossmatch See Detail 12/24/20 12/24/20 Range/Units 04:40 04:40 WBC 8.7 (4.5-11.0) K/uL RBC 3.44 L (4.30-5.90) M/uL Hgb 9.3 L (12.0-15.0) g/dL Hct 30.4 L (40.0-54.0) % MCV 88 (80-98) fL MCH 27 (27-31) pg MCHC 31 L (32-36) % Plt Count 125 L (150-400) K/uL Sodium 139 L (140-148) mmol/L Potassium 4.4 (3.6-5.2) mmol/L Chloride 105 (100-108) mmol/L Carbon Dioxide 29 (21-32) mmol/L Anion Gap 9.4 (5.0-14.0) mmol/L BUN 24 H (7-18) mg/dL Creatinine 0.9 (0.8-1.3) mg/dL Est Cr Clr Drug Dosing 58.58 mL/min Estimated GFR (MDRD) > 60 (>60) Glucose 142 H (74-106) mg/dL Calcium 8.9 (8.5-10.1) mg/dL Phosphorus 2.6 (2.5-4.9) mg/dL Magnesium 1.9 (1.8-2.4) mg/dL Total Bilirubin 0.5 (0.2-1.0) mg/dL AST 22 (15-37) U/L ALT 21 (12-78) U/L Alkaline Phosphatase 49 (46-116) U/L NT-Pro-B Natriuret Pep 6282 H (5-450) pg/mL Total Protein 4.9 L (6.4-8.2) g/dL Albumin 2.1 L (3.4-5.0) g/dL Globulin 2.8 (2.3-3.5) g/dL Albumin/Globulin Ratio 0.8 L (1.2-2.2) Blood Type Gel Antibody Screen Crossmatch Med Orders - Current: Current Medications Alvimopan (Alvimopan 12 Mg Capsule) 12 mg PO Q12H [facility] Stop: 12/25/20 20:01 Last Admin: 12/24/20 08:50 Dose: 12 mg Documented by: Aspirin (Aspirin 81 Mg Tab.Ec) 81 mg PO DAILY [facility] Last Admin: 12/24/20 09:10 Dose: 81 mg Documented by: Atorvastatin Calcium (Atorvastatin 10 Mg Tab) 10 mg PO DAILY [facility] Last Admin: 12/24/20 09:09 Dose: 10 mg Documented by: Bisacodyl (Bisacodyl 5 Mg Tab) 10 mg PO BID [facility] Last Admin: 12/24/20 09:11 Dose: 10 mg Documented by: Diphenhydramine HCl (Diphenhydramine 25 Mg Cap) 25 mg PO Q4H PRN PRN Reason: Itching Docusate Sodium (Docusate Sodium 100 Mg Cap) 100 mg PO BID [facility] Last Admin: 12/24/20 09:11 Dose: 100 mg Documented by: Furosemide (Furosemide 20 Mg/2 Ml Vial) 20 mg IVPUSH Q6H [facility] Stop: 12/24/20 14:31 Last Admin: 12/24/20 08:55 Dose: 20 mg Documented by: Haloperidol Lactate (Haloperidol Lactate 5 Mg/Ml Sdv) 2.5 mg IVPUSH Q4H PRN PRN Reason: Agitation Last Admin: 12/23/20 13:18 Dose: 2.5 mg Documented by: Hydromorphone HCl (Hydromorphone/Normal Saline 15 Mg/30 Ml Refrigeration Insulator) 15 mg IV ASDIRECTED PRN; Protocol PRN 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: 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 Last Admin: 12/23/20 09:50 Dose: 15 mg Documented by: Hydroxyzine HCl (Hydroxyzine Hcl 100 Mg/2 Ml Sdv) 0 mg IM Q4H PRN PRN Reason: PAIN Dextrose/Lactated Ringer's (Dextrose 5%-Lactated Ringers) 1,000 mls @ 25 mls/hr IV ASDIRECTED [facility] Last Admin: 12/23/20 17:44 Dose: 25 mls/hr Documented by: Albumin Human (Albumin 25%) 25 gm in 100 mls @ 25 mls/hr IV Q24H [facility] Stop: 12/25/20 13:59 Last Admin: 12/23/20 10:26 Dose: 25 mls/hr Documented by: Multivitamins/Minerals 10 ml/Zinc 1 ml/ Amino Ac/Electrol/Dextrose/Calcium 1,011 mls @ 82 mls/hr IV .BY DURATION [facility] Stop: 12/24/20 14:30 Last Admin: 12/23/20 13:46 Dose: 82 mls/hr Documented by: Amino Ac/Electrol/Dextrose/Calcium (Clinimix E 5/15) 1,000 mls @ 82 mls/hr IV .BY DURATION [facility] Stop: 12/24/20 14:30 Last Admin: 12/24/20 01:59 Dose: 82 mls/hr Documented by: Potassium Phosphate 22.5 mmole (/ Sodium Chloride) 107.5 mls @ 27 mls/hr IV Q4H [facility] Stop: 12/24/20 17:59 Multivitamins/Minerals 10 ml/Zinc 1 ml/ Amino Ac/Electrol/Dextrose/Calcium 1,011 mls @ 60 mls/hr IV .BY DURATION [facility] Amino Ac/Electrol/Dextrose/Calcium (Clinimix E 5/15) 1,000 mls @ 60 mls/hr IV .BY DURATION [facility] Melatonin (Melatonin 3 Mg Tab) 9 mg PO BEDTIME [facility] Last Admin: 12/23/20 20:46 Dose: Not Given Documented by: Metoprolol Tartrate (Metoprolol Tartrate 25 Mg Tab) 25 mg PO Q12H [facility] Last Admin: 12/24/20 09:13 Dose: 25 mg Documented by: Naloxone HCl (Naloxone 0.4 Mg/Ml Sdv) 0.1 mg IV ASDIRECTED PRN PRN Reason: decreased respiratory rate Scopolamine Patch (Check) 1 each TOP DAILY [facility] Last Admin: 12/24/20 09:12 Dose: Not Given Documented by: Ondansetron HCl (Ondansetron 4 Mg/2 Ml Sdv) 4 mg IVPUSH Q4H PRN PRN Reason: Nausea Pantoprazole Sodium (Pantoprazole 40 Mg Tab.Cr) 40 mg PO ACDINNER [facility] Propafenone HCl (Propafenone 150 Mg Tab) 225 mg PO TID [facility] Last Admin: 12/24/20 09:06 Dose: 300 mg Documented by: Tamsulosin HCl (Tamsulosin 0.4 Mg Cap.Er) 0.4 mg PO BEDTIME [facility] Last Admin: 12/23/20 20:46 Dose: Not Given Documented by: Discontinued Medications Acetaminophen (Acetaminophen 500 Mg Tab) 1,000 mg PO ONETIME ONE Stop: 12/21/20 05:46 Last Admin: 12/21/20 06:20 Dose: 1,000 mg Documented by: Alvimopan (Alvimopan 12 Mg Capsule) 12 mg PO ONETIME ONE Stop: 12/21/20 06:37 Last Admin: 12/21/20 07:02 Dose: 12 mg Documented by: Bupivacaine HCl (Bupivacaine 0.5% 50 Ml Mdv) Confirm Administered Dose 50 ml .ROUTE .STK-MED ONE Stop: 12/21/20 06:40 Bupivacaine HCl (Bupivacaine 0.5% 50 Ml Mdv) Confirm Administered Dose 50 ml .ROUTE .STK-MED ONE Stop: 12/23/20 06:36 Last Admin: 12/23/20 09:57 Dose: 17.5 ml Documented by: Cefoxitin Sodium (Cefoxitin 2 Gm Vial) Confirm Administered Dose 2 gm .ROUTE .STK-MED ONE Stop: 12/21/20 12:39 Meropenem 500 mg/ Sodium (Chloride 750 ml) 0 mg .XX ONETIME ONE Stop: 12/21/20 07:16 Last Admin: 12/21/20 07:10 Dose: 700 cont Documented by: Ropivacaine 45 ml/Dexamethasone 8 mg/Epinephrine HCl 0.4 mg/ Sodium Chloride 32.6 ml 0 ml NERVRT ASDIRECTED [facility] Last Admin: 12/23/20 08:36 Dose: 80 syringe Documented by: Dexamethasone (Dexamethasone 4 Mg/Ml Sdv) Confirm Administered Dose 4 mg .ROUTE .STK-MED ONE Stop: 12/21/20 07:13 Digoxin (Digoxin 500 Mcg/2 Ml Amp) 125 mcg IVPUSH ONETIME ONE Stop: 12/21/20 17:16 Last Admin: 12/21/20 17:15 Dose: 125 mcg Documented by: Digoxin (Digoxin 500 Mcg/2 Ml Amp) Confirm Administered Dose 500 mcg .ROUTE .STK-MED ONE Stop: 12/21/20 17:14 Last Admin: 12/21/20 17:27 Dose: Not Given Documented by: Fentanyl (Fentanyl 250 Mcg/5 Ml Sdv) Confirm Administered Dose 250 mcg .ROUTE .STK-MED ONE Stop: 12/21/20 07:12 Fentanyl (Fentanyl 100 Mcg/2 Ml Sdv) Confirm Administered Dose 100 mcg .ROUTE .STK-MED ONE Stop: 12/21/20 12:20 Fentanyl (Fentanyl 100 Mcg/2 Ml Sdv) Confirm Administered Dose 100 mcg .ROUTE .STK-MED ONE Stop: 12/21/20 14:19 Furosemide (Furosemide 20 Mg/2 Ml Vial) 20 mg IVPUSH ONETIME ONE Stop: 12/23/20 09:31 Last Admin: 12/23/20 10:20 Dose: 20 mg Documented by: Glycopyrrolate (Glycopyrrolate 0.2 Mg/Ml 5 Ml Mdv) Confirm Administered Dose 1 mg .ROUTE .STK-MED ONE Stop: 12/21/20 07:13 Heparin Sodium (Porcine) (Heparin Sodium 100 Units/Ml 5 Ml Syringe) Confirm Administered Dose 500 units .ROUTE .STK-MED ONE Stop: 12/23/20 06:56 Last Admin: 12/23/20 09:58 Dose: 500 units Documented by: Dextrose/Lactated Ringer's (Dextrose 5%-Lactated Ringers) 1,000 mls @ 100 mls/hr IV ASDIRECTED [facility] Last Admin: 12/21/20 06:20 Dose: 100 mls/hr Documented by: Cefoxitin Sodium 2 gm/ Sodium (Chloride) 50 mls @ 100 mls/hr IV ONETIME ONE Stop: 12/21/20 08:14 Last Admin: 12/21/20 07:52 Dose: 100 mls/hr Documented by: Linezolid (Zyvox) Confirm Administered Dose 300 mls @ as directed .ROUTE .STK- MED ONE Stop: 12/21/20 06:40 Fentanyl 2,500 mcg/ Sodium (Chloride) 250 mls @ 0 mls/hr EPIDUR TITRATE [facility]; Protocol Last Admin: 12/23/20 02:29 Dose: 8 mls/hr, 8 mls/hr Documented by: Sodium Chloride (Normal Saline) Confirm Administered Dose 10 mls @ as directed .ROUTE .[facility] ONE Stop: 12/21/20 07:15 Sodium Chloride (Normal Saline) Confirm Administered Dose 10 mls @ as directed .ROUTE .[facility] ONE Stop: 12/21/20 08:35 Lactated Ringer's (Ringers, Lactated) Confirm Administered Dose 1,000 mls @ as directed .ROUTE .[facility] ONE Stop: 12/21/20 09:49 Linezolid (Zyvox) Confirm Administered Dose 300 mls @ as directed .ROUTE .[facility] ONE Stop: 12/21/20 09:50 Sodium Chloride (Normal Saline) Confirm Administered Dose 10 mls @ as directed .ROUTE .[facility] ONE Stop: 12/21/20 12:39 Lactated Ringer's (Ringers, Lactated) Confirm Administered Dose 1,000 mls @ as directed .ROUTE .[facility] ONE Stop: 12/21/20 13:24 Dextrose/Lactated Ringer's (Dextrose 5%-Lactated Ringers) 1,000 mls @ 75 mls/hr IV ASDIRECTED [facility] Last Admin: 12/22/20 20:01 Dose: 100 mls/hr Documented by: Lactated Ringer's (Ringers, Lactated) 1,000 mls @ 100 mls/hr IV ASDIRECTED [facility] Last Admin: 12/22/20 08:31 Dose: 100 mls/hr Documented by: Cefoxitin Sodium 2 gm/ Sodium (Chloride) 50 mls @ 100 mls/hr IV Q6H [facility] Stop: 12/23/20 10:29 Last Admin: 12/23/20 10:28 Dose: 100 mls/hr Documented by: Lactated Ringer's (Ringers, Lactated) 500 mls @ 999 mls/hr IV ASDIRECTED [facility] Stop: 12/21/20 17:46 Last Admin: 12/21/20 17:10 Dose: 999 mls/hr Documented by: Lactated Ringer's (Ringers, Lactated) 500 mls @ 999 mls/hr IV ASDIRECTED [facility] Stop: 12/21/20 18:31 Last Admin: 12/21/20 18:00 Dose: 999 mls/hr Documented by: Norepinephrine Bitartrate 8 mg (/ Dextrose/Water) 258 mls @ 3.87 mls/hr IV TITRATE [facility]; Protocol Last Infusion: 12/22/20 23:28 Dose: 2 mcg/min, 3.87 mls/hr Documented by: Magnesium Sulfate 2 gm/ Premix 50 mls @ 25 mls/hr IV Q6H [facility] Stop: 12/22/20 02:14 Last Admin: 12/21/20 23:50 Dose: 25 mls/hr Documented by: Esmolol HCl (Esmolol Hcl In Sterile Water 2,500 Mg/250 Ml) 250 mls @ 27.488 mls/hr IV TITRATE [facility]; Protocol Last Admin: 12/22/20 03:23 Dose: 300 mcg/kg/min, 164.927 mls/hr Documented by: Diltiazem HCl 100 mg/ Sodium (Chloride) 100 mls @ 5 mls/hr IV TITRATE [facility]; Protocol Last Titration: 12/22/20 09:58 Dose: 13 mg/hr, 13 mls/hr Documented by: Lactated Ringer's (Ringers, Lactated) Confirm Administered Dose 1,000 mls @ as directed .ROUTE .STK-MED ONE Stop: 12/23/20 07:39 Potassium Phosphate 22.5 mmole (/ Sodium Chloride) 107.5 mls @ 27 mls/hr IV Q4H [facility] Stop: 12/23/20 18:59 Last Admin: 12/23/20 15:06 Dose: 27 mls/hr Documented by: Lidocaine/Epinephrine (Lidocaine 1% With Epinephrine 1:100,000 50 Ml Mdv) Confirm Administered Dose 50 ml .ROUTE .STK-MED ONE Stop: 12/21/20 06:40 Lidocaine/Epinephrine (Lidocaine 1% With Epinephrine 1:100,000 50 Ml Mdv) Confirm Administered Dose 50 ml .ROUTE .STK-MED ONE Stop: 12/23/20 06:36 Last Admin: 12/23/20 09:58 Dose: 17.5 ml Documented by: Linezolid (Linezolid 600 Mg/300 Ml Bag) 1,200 mg IRR .STK-MED ONE Stop: 12/21/20 09:59 Last Admin: 12/21/20 09:58 Dose: 1,200 mg Documented by: Meropenem (Meropenem 500 Mg Sdv) Confirm Administered Dose 500 mg .ROUTE .STK- MED ONE Stop: 12/21/20 06:40 Last Admin: 12/21/20 09:58 Dose: 1,000 mg Documented by: Meropenem (Meropenem 500 Mg Sdv) Confirm Administered Dose 500 mg .ROUTE .STK- MED ONE Stop: 12/21/20 09:50 Meropenem (Meropenem 500 Mg Sdv) Confirm Administered Dose 500 mg .ROUTE .STK- MED ONE Stop: 12/23/20 06:36 Last Admin: 12/23/20 09:59 Dose: 500 mg Documented by: Metoprolol Tartrate (Metoprolol Tartrate 25 Mg Tab) 12.5 mg PO BID [facility] Last Admin: 12/21/20 20:29 Dose: Not Given Documented by: Metoprolol Tartrate (Metoprolol Tartrate 5 Mg/5 Ml Sdv) 5 mg IVPUSH ONETIME ONE Stop: 12/21/20 17:01 Last Admin: 12/22/20 20:18 Dose: Not Given Documented by: Metoprolol Tartrate (Metoprolol Tartrate 5 Mg/5 Ml Sdv) 5 mg IVPUSH Q4H [facility] Last Admin: 12/21/20 19:37 Dose: 5 mg Documented by: Midazolam HCl (Midazolam 1 Mg/Ml 2 Ml Sdv) 1 mg IVPUSH ONETIME ONE Stop: 12/23/20 05:54 Last Admin: 12/23/20 06:10 Dose: 1 mg Documented by: Midazolam HCl (Midazolam 1 Mg/Ml 2 Ml Sdv) 1 mg IV Q4H PRN PRN Reason: RESTLESSNESS Naloxone HCl (Naloxone 0.4 Mg/Ml Sdv) 0.1 mg IVPUSH Q5M PRN PRN Reason: RESP RATE LESS THAN 6/MINUTE Naloxone HCl (Naloxone 0.4 Mg/Ml Sdv) 0.4 mg IVPUSH ONETIME PRN PRN Reason: Itching Last Admin: 12/22/20 20:00 Dose: 0.4 mg Documented by: Neostigmine Methylsulfate (Neostigmine Methylsulfate 1 Mg/Ml 5 Ml Syringe) Confirm Administered Dose 5 mg .ROUTE .STK-MED ONE Stop: 12/21/20 07:13 Ondansetron HCl (Ondansetron 4 Mg/2 Ml Sdv) Confirm Administered Dose 4 mg .R OUTE .STK-MED ONE Stop: 12/21/20 07:13 Pantoprazole Sodium (Pantoprazole 40 Mg Vial) 40 mg IV Q24H [facility] Last Admin: 12/23/20 15:13 Dose: 40 mg Documented by: Propafenone HCl (Propafenone 150 Mg Tab) 225 mg PO DAILY [facility] Last Admin: 12/22/20 08:41 Dose: Not Given Documented by: Propofol (Propofol 200 Mg/20 Ml Sdv) Confirm Administered Dose 200 mg .ROUTE .STK-MED ONE Stop: 12/21/20 07:13 Propofol (Propofol 200 Mg/20 Ml Sdv) Confirm Administered Dose 200 mg .ROUTE .STK-MED ONE Stop: 12/23/20 07:10 Propofol (Propofol 200 Mg/20 Ml Sdv) Confirm Administered Dose 200 mg .ROUTE .STK-MED ONE Stop: 12/23/20 08:05 Rocuronium [place] (Rocuronium 50 Mg/5 Ml Vial) Confirm Administered Dose 50 mg .ROUTE .STK-MED ONE Stop: 12/21/20 07:13 Rocuronium [place] (Rocuronium 50 Mg/5 Ml Vial) Confirm Administered Dose 50 mg .ROUTE .STK-MED ONE Stop: 12/21/20 09:03 Rocuronium [place] (Rocuronium 50 Mg/5 Ml Vial) Confirm Administered Dose 50 mg .ROUTE .STK-MED ONE Stop: 12/21/20 12:11 Scopolamine (Scopolamine 1.5 Mg Transdermal Patch) Confirm Administered Dose 1.5 mg .ROUTE .STK-MED ONE Stop: 12/21/20 08:29 Scopolamine (Scopolamine 1.5 Mg Transdermal Patch) 1.5 mg TOP Q72H [facility] Succinylcholine Chloride (Succinylcholine 200 Mg/10 Ml Mdv) Confirm Administered Dose 200 mg .ROUTE .STK-MED ONE Stop: 12/21/20 07:13 - Exam Quality Assessment: No: Supplemental Oxygen Central Line Total Time: 0Days 16Hours Urinary Catheter Total Time: 2Days 18Hours General: Alert, Cooperative, No Acute Distress Neck: No JVD Lungs: Normal Respiratory Effort, Crackles (few left lower lung ) Cardiovascular: Regular Rate, Irregular Rhythm GI/Abdominal Exam: Soft, No Distention, Abnormal Bowel Sounds (hypoactive ) Extremities: No Pedal Edema. No: Increased Warmth Skin: Warm, Dry Psy/Mental Status: Alert, Normal Affect Sepsis Event Note - Evaluation Sepsis Screening Result: No Definite Risk - Focused Exam Vital Signs: Vital Signs Temp Temp Pulse Pulse Resp BP BP 12/24/20 09:13 82 153/81 H 12/24/20 09:06 82 12/24/20 08:50 36.3 C 82 12 159/87 H 12/24/20 07:49 35.6 C L 82 13 172/83 H 12/24/20 07:00 75 12 160/74 H 12/24/20 06:00 11 L 169/86 H 12/24/20 05:00 36.1 C 20 148/79 H 12/24/20 04:00 9 L 157/69 H 12/24/20 03:13 81 12/24/20 03:12 81 173/74 H 12/24/20 03:00 36.2 C 11 L 173/74 H 12/24/20 02:00 13 170/74 H 12/24/20 01:00 18 164/75 H 12/24/20 00:00 9 L 174/76 H 12/23/20 23:00 36.2 C 11 L 164/85 H 12/23/20 22:00 14 161/82 H Pulse Ox 12/24/20 09:13 12/24/20 09:06 12/24/20 08:50 12/24/20 07:49 97 12/24/20 07:00 96 12/24/20 06:00 98 12/24/20 05:00 97 12/24/20 04:00 97 12/24/20 03:13 12/24/20 03:12 12/24/20 03:00 96 12/24/20 02:00 95 12/24/20 01:00 98 12/24/20 00:00 99 12/23/20 23:00 99 12/23/20 22:00 99 Consult PN Assessment/Plan POD#: 3 Procedures: Procedures AGENT NOS ASSAY W/OPTIC (04/06/20) AIRWAY INHALATION TREATMENT (05/25/20) ASSAY OF CK (CPK) (03/14/20) ASSAY OF FERRITIN (03/05/20) ASSAY OF LACTIC ACID (05/30/20) ASSAY OF MAGNESIUM (08/09/20) ASSAY OF NATRIURETIC PEPTIDE (05/30/20) ASSAY OF TROPONIN QUANT (08/09/20) BLOOD CULTURE FOR BACTERIA (04/06/20) BLOOD TRANSFUSION SERVICE (03/05/20) BLOOD TYPING SEROLOGIC ABO (05/30/20) BLOOD TYPING SEROLOGIC RH(D) (05/30/20) C DIFF AMPLIFIED PROBE (03/14/20) C-REACTIVE PROTEIN (04/06/20) CARCINOEMBRYONIC ANTIGEN (05/30/20) CARPAL TUNNEL SURGERY (02/18/13) COMPATIBILITY TEST ANTIGLOB (05/30/20) COMPATIBILITY TEST SPIN (05/30/20) COMPLETE CBC AUTOMATED (08/09/20) COMPLETE CBC W/AUTO DIFF WBC (05/30/20) COMPREHEN METABOLIC PANEL (05/30/20) CT ABD & PELV W/CONTRAST (05/30/20) CT ANGIOGRAPHY CHEST (05/28/20) CT THORAX DX C+ (05/30/20) CULTURE SCREEN ONLY (05/30/20) ELECTROCARDIOGRAM REPORT (03/14/20) ELECTROCARDIOGRAM TRACING (05/30/20) EMERGENCY DEPT VISIT (08/09/20) EMERGENCY DEPT VISIT (05/25/20) EMERGENCY DEPT VISIT (05/25/20) EMERGENCY DEPT VISIT (04/06/20) EMERGENCY DEPT VISIT (04/06/20) EMERGENCY DEPT VISIT (10/07/18) EVALUATE SWALLOWING FUNCTION (03/05/20) EXTREMITY STUDY (05/27/20) FIBRIN DEGRADATION QUANT (03/05/20) HEMOGLOBIN (05/30/20) HEPATIC FUNCTION PANEL (03/14/20) HOSPITAL DISCHARGE DAY (03/14/20) HOSPITAL DISCHARGE DAY (03/05/20) HYDRATE IV INFUSION ADD-ON (10/07/18) IMMUNOHISTO ANTB 1ST STAIN (05/30/20) IMMUNOHISTO ANTB ADDL SLIDE (05/30/20) INITIAL HOSPITAL CARE (03/05/20) INSERT TEMP BLADDER CATH (03/14/20) LACTATE (LD) (LDH) ENZYME (03/05/20) LEUKOCYTE ASSESSMENT FECAL (04/06/20) MEASURE BLOOD OXYGEN LEVEL (03/05/20) METABOLIC PANEL TOTAL CA (08/09/20) OCCULT BLD FECES 1-3 TESTS (05/30/20) OCCULT BLOOD FECES (04/06/20) PROCALCITONIN (PCT) (04/06/20) PROTHROMBIN TIME (03/05/20) PT EVAL MOD COMPLEX 30 MIN (05/30/20) RBC ANTIBODY SCREEN (05/30/20) ROUTINE VENIPUNCTURE (08/09/20) SELF CARE MNGMENT TRAINING (05/30/20) STOOL CULTR AEROBIC BACT EA (04/06/20) SUBSEQUENT HOSPITAL CARE (03/14/20) SUBSEQUENT HOSPITAL CARE (03/14/20) SUBSEQUENT HOSPITAL CARE (03/05/20) SUBSEQUENT HOSPITAL CARE (03/05/20) THER/PROPH/DIAG INJ IV PUSH (10/07/18) THER/PROPH/DIAG IV INF ADDON (03/14/20) THER/PROPH/DIAG IV INF INIT (08/09/20) THERAPEUTIC ACTIVITIES (05/30/20) THERAPEUTIC EXERCISES (05/30/20) TISSUE EXAM BY PATHOLOGIST (05/30/20) TTE W/DOPPLER COMPLETE (05/30/20) TX/PRO/DX INJ NEW DRUG ADDON (03/05/20) TX/PRO/DX INJ SAME DRUG FOREST FIRE LOOKOUT (03/14/20) TX/PROPH/DG ADDL SEQ IV INF (03/14/20) URINALYSIS AUTO W/SCOPE (08/09/20) URINE CULTURE/COLONY COUNT (03/05/20) US EXAM ABDOM COMPLETE (03/14/20) X-RAY EXAM CHEST 1 VIEW (05/30/20) X-RAY EXAM OF SHOULDER (03/14/20) (1) Atrial fibrillation with RVR SNOMED Code(s): 413115223483329 Code(s): I48.91 - UNSPECIFIED ATRIAL FIBRILLATION Current Visit: No Problem List Initiated/Reviewed/Updated: Yes My Orders Last 24 Hours: My Active Orders 12/23/20 09:21 Haloperidol Lactate [Haldol] 2.5 mg IVPUSH Q4H PRN 12/24/20 16:00 Pantoprazole [ProTONIX] 40 mg PO ACDINNER Plan: ASSESSMENT AND PLAN - 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 Surgical team ordered a unit of packed red blood cells again this morning. Clinically doing much better today. 2 doses of furosemide planned. -Limit IV fluids as able -Dose of furosemide this morning and again after his transfusion -Postoperative care as per the surgical team Rapid atrial fibrillation-rate control has improved with oral medications. -Metoprolol 25 mg every 12 hours -Propafenone 3 times a day -Additional rate control if indicated -Continue cardiac monitoring Postoperative hypotension-probably related to third spacing. He has been weaned off of the norepinephrine and blood pressure has remained stable. Anemia due to blood loss-after today he will have had 5 units of blood total, 2 during surgery and 3 after surgery. Hemoglobin has been stable and there is no evidence for bleeding. -I would recommend a transfusion threshold of the hemoglobin less than 8 Acute kidney injury-creatinine has trended down with volume resuscitation after surgery. History of congestive heart failure-patient has mild evidence for volume overload. 2 doses of furosemide are planned today. Maintenance issues - -DVT prophylaxis-mechanical -GI prophylaxis-PPI -Nutrition-full liquids -Gan catheter-necessary for strict intake and output monitoring, reassess daily Disposition-he is stable and safe for transfer out of the intensive care unit today. Antonio Washington M.D.
[2020-12-24] MEDS: Potassium Phosphates 22.5 MMOLE in Sodium Chloride 0.9% 100 ML IV SCH ×2 (11:25→15:27)
--- NOTE | 2020-12-24 13:57 | PN ---
DATE OF SERVICE: 12/24/2020 The patient has been afebrile, temperature is running in the 97 range, heart rate is now down in the 70s and 80s with continued atrial fibrillation. Blood pressure is little bit high at 170/74 and I suspect probably he needed to be diuresed. At this point, BNP did bump up to 6000 from around 3000 yesterday. Otherwise, he is having some continued output from the ostomy, but not much. The ostomy yesterday looked very good and he is off any norepinephrine at this point. The plan today will be to transfuse 1 unit of packed RBCs. We will give him some Lasix IV right away this morning and then repeat the Lasix after transfusion hemoglobin 9.6. We will move him up to a full-liquid diet without pushing that too much, but turn the TPN down to 60 mL an hour. Give him some additional bowel stimulation. The phosphate remains marginally low at 2.6 and we will give some K-Phos IV today. I think the scopolamine patch can come off. 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 Mohsen Duggan MD /[id number]
--- NOTE | 2020-12-24 14:10 | PN ---
DATE OF SERVICE: 12/23/2020 The patient has overall stabilized over the last 24 hours. Still running heart rates in the 100 and 126 range. He did get his back down. He still is on 2 mcg of norepinephrine and we will get the epidural out today and I think that will probably help get him off the norepinephrine. One worries a little bit about perfusion of the ostomy and such with the norepinephrine infusion and his underlying cardiovascular disease. Otherwise, he was somewhat confused overnight and did get 1 small dose of Versed this morning IV and that helped. He got very limited peripheral venous access closure, we will place a central line TPN as well. Hemoglobin is 8.9. We will give him 1 unit of packed RBCs today and we can add Dilaudid CASE OPERATOR and discontinue the epidural catheter. His urine output has picked up nicely and his creatinine is down to 1.4 from a preoperative level of 1.8. Mohsen Duggan MD /[id number]
--- NOTE | 2020-12-24 14:10 | PN ---
DATE OF SERVICE: 12/22/2020 The patient came out of the operating room after quite a long anesthetic, was quite sleepy during the night. He is now waking up and is coherent this morning. He had problems with rapid ventricular rate with his atrial fibrillation during the night with heart rates up as high as in the 150s. Currently, he is in the 100 to 115 range on a Cardizem drip. He was on esmolol earlier that became unavailable. In a way that might be better in terms of not requiring high IV rate, which the esmolol infusion did require. At any rate, the urine output has been satisfactory initially was slow, but he had some clots . Now, he has been having 30 mL an hour, and creatinine is down a little bit from 1.8 to 1.6, primarily from a dilutional standpoint. He remains on a fairly high norepinephrine infusion from sepsis, but I think from things up in terms of perhaps epidural and general cardiovascular status. Hopefully, we can get that weaned down today to avoid issues with GI tract ischemia and such. 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 Labs show white count of 19,000, hemoglobin 9.4. CO2 is 24, so significant metabolic acidosis, blood sugar is 160. BNP is up quite a bit higher than baseline at 3910, so I do not know how much risk is related to the tachycardia versus fluid, but his lungs are quite clear and he is oxygenating satisfactorily. At this point, we will try to restart the Rythmol and oral metoprolol, and hopefully we will try to get him wean down on the norepinephrine as the day proceeds. We will give him 1 unit of packed RBCs slowly as I think he may be better with less crystalloid and little in the way of blood products with the underlying cardiovascular disease and then we will proceed with delayed primary closure of abdominal incision tomorrow. Mohsen Duggan MD /[id number]
--- NOTE | 2020-12-24 14:33 | OR ---
DATE OF PROCEDURE: 12/23/2020 SURGEON: Mohsen Duggan MD PREOPERATIVE DIAGNOSES: 1. Indication for central venous access. 2. Open abdominal incision. POSTOPERATIVE DIAGNOSES: 1. Indication for central venous access. 2. Open abdominal incision. PROCEDURES PERFORMED: 1. Insertion of right subclavian vein triple-lumen catheter. 2. Delayed primary closure of abdominal incision. ANESTHESIA: Local plus IV sedation. INDICATION FOR PROCEDURE: The patient presents with very limited central venous access status post abdominoperineal resection 2 days ago. At that time, his wound was left open in the skin and subcutaneous tissue level for a planned delayed closure at this time, and also, because of lack of adequate peripheral access and indications for TPN emerging, a central line will be placed. Potential risks of the procedure including bleeding, infection, pneumohemothorax, vascular injury with catheter insertion were reviewed, and the patient wishes to proceed. DETAILS OF PROCEDURE: The patient was taken to the operating room and placed in a supine position. IV sedation was administered after which the upper chest and neck areas were prepped and draped. The left infraclavicular area was anesthetized with 1% lidocaine, and at that point, the left subclavian vein was approached. With multiple attempts, we were unable to obtain access to the vein, however. Attention was taken to the right side where we similarly anesthetized. The right subclavian vein was then cannulated and dilator passed along the guidewire, triple-lumen catheter positioned. The catheter did eventually go up into the jugular vein That should be satisfactory as far as the IV access, use of TPN would need more proximal of the port. The catheter was then flushed with heparinized saline. Good blood return had also been confirmed, and the catheter was sutured to the skin with some 3-0 silk stitch and dressing applied. Subsequent chest x-ray showed catheter going into the jugular vein, but otherwise no complications. The abdomen was then examined after taking down the operative and the wound was found to be clean. It was then prepped and draped. Bilateral transversus abdominis plane blocks were placed with ultrasound guidance and wound irrigated with Meropenem-containing saline solution and anesthetized with 1% lidocaine mixed with Marcaine. were then closed with 2 layers of 3-0 and 4-0 Vicryl stitch deep and xander for the skin. A dressing was applied. The patient was taken to the recovery room in satisfactory condition. Mohsen Duggan MD /[id number]
[2020-12-24] MEDS: Pantoprazole 40 MG Tab.CR PO SCH (17:00)
[2020-12-24] MEDS: Melatonin 3 MG Tab PO SCH (20:20)
[2020-12-24] MEDS: Tamsulosin 0.4 MG Cap.ER PO SCH (20:23)
[2020-12-24] MEDS: Haloperidol Lactate 5 MG/ML SDV IVPUSH PRN (22:57)
[2020-12-25] MEDS: Haloperidol Lactate 5 MG/ML SDV IVPUSH PRN ×3 (02:06→14:56)
[2020-12-25] MEDS: Docusate Sodium 100 MG Cap PO SCH ×3 (08:08→23:22)
[2020-12-25] MEDS: Bisacodyl 5 MG Tab PO SCH ×3 (08:08→23:22)
[2020-12-25] MEDS: Aspirin 81 MG Tab.EC PO SCH (08:09)
[2020-12-25] MEDS: atorvaSTATin 10 MG Tab PO SCH (08:10)
[2020-12-25] MEDS: Metoprolol Tartrate 25 MG Tab PO SCH ×3 (08:10→23:23)
[2020-12-25] MEDS: 1: AA 5%/Calcium/D15W/Lytes 1,000 ML with MVI, Adult with Vitamin K 10 ML, Zinc/Copper/M IV SCH ×3 (10:00)
[2020-12-25] MEDS ORDERED: Furosemide 40 MG/4 ML VIAL IVPUSH ONE (10:54)
--- NOTE | 2020-12-25 10:55 | PCM.CONSN ---
- General Info Date of Service: 12/25/20 Subjective Update: Overnight the patient had difficulty with confusion and was tugging on his Gan catheter. He has some hematuria this morning. He is alert but confused. He is pleasant and interactive. He did not have any fevers. Heart rate has been borderline tachycardic but overall pretty good. Blood pressure is mildly elevated. Colostomy has started to produce some stool and gas. Tolerating full liquids. Hemoglobin stable. Functional Status: Reports: Pain Controlled, Tolerating Diet - Review of Systems General: Denies: Fever Neurological: Reports: Confusion - Patient Data Vitals - Most Recent: Last Vital Signs Temp 35.8 C L 12/25/20 10:48 Pulse 97 12/25/20 10:48 Resp 18 12/25/20 10:48 BP 146/81 H 12/25/20 10:48 Pulse Ox 96 12/25/20 10:48 Weight - Most Recent: 91.626 kg I&O - Last 24 Hours: Intake & Output 12/24/20 12/25/20 12/25/20 22:59 06:59 14:59 Intake Total 1052 968 Output Total 770 920 Balance 282 48 Lab Results Last 24 Hours: Laboratory Results - last 24 hr 12/21/20 12/25/20 12/25/20 Range/Units 06:06 04:10 04:10 WBC 9.4 (4.5-11.0) K/uL RBC 3.68 L (4.30-5.90) M/uL Hgb 10.1 L (12.0-15.0) g/dL Hct 32.3 L (40.0-54.0) % MCV 88 (80-98) fL MCH 27 (27-31) pg MCHC 31 L (32-36) % Plt Count 140 L (150-400) K/uL Sodium 141 (140-148) mmol/L Potassium 3.7 (3.6-5.2) mmol/L Chloride 106 (100-108) mmol/L Carbon Dioxide 28 (21-32) mmol/L Anion Gap 7.0 (5.0-14.0) mmol/L BUN 33 H (7-18) mg/dL Creatinine 0.9 (0.8-1.3) mg/dL Est Cr Clr Drug Dosing 58.58 mL/min Estimated GFR (MDRD) > 60 (>60) Glucose 107 H (74-106) mg/dL Calcium 9.0 (8.5-10.1) mg/dL Phosphorus 3.0 (2.5-4.9) mg/dL Magnesium 1.8 (1.8-2.4) mg/dL Total Bilirubin 0.5 (0.2-1.0) mg/dL AST 25 (15-37) U/L ALT 29 (12-78) U/L Alkaline Phosphatase 51 (46-116) U/L NT-Pro-B Natriuret Pep 6563 H (5-450) pg/mL Total Protein 4.9 L (6.4-8.2) g/dL Albumin 2.3 L (3.4-5.0) g/dL Globulin 2.6 (2.3-3.5) g/dL Albumin/Globulin Ratio 0.9 L (1.2-2.2) Crossmatch See Detail Med Orders - Current: Current Medications Alvimopan (Alvimopan 12 Mg Capsule) 12 mg PO Q12H [facility] Stop: 12/25/20 20:01 Last Admin: 12/25/20 08:11 Dose: Not Given Documented by: Aspirin (Aspirin 81 Mg Tab.Ec) 81 mg PO DAILY [facility] Last Admin: 12/25/20 08:09 Dose: 81 mg Documented by: Atorvastatin Calcium (Atorvastatin 10 Mg Tab) 10 mg PO DAILY [facility] Last Admin: 12/25/20 08:10 Dose: 10 mg Documented by: Bisacodyl (Bisacodyl 5 Mg Tab) 10 mg PO BID [facility] Last Admin: 12/25/20 08:18 Dose: Not Given Documented by: Diphenhydramine HCl (Diphenhydramine 25 Mg Cap) 25 mg PO Q4H PRN PRN Reason: Itching Docusate Sodium (Docusate Sodium 100 Mg Cap) 100 mg PO BID [facility] Last Admin: 12/25/20 08:18 Dose: Not Given Documented by: Haloperidol Lactate (Haloperidol Lactate 5 Mg/Ml Sdv) 5 mg IVPUSH Q2H PRN PRN Reason: Agitation Last Admin: 12/25/20 08:22 Dose: 5 mg Documented by: Heparin Sodium (Porcine) (Heparin Sodium 100 Units/Ml 5 Ml Syringe) 500 units FLUSH ASDIRECTED PRN PRN Reason: IV Use Last Admin: 12/25/20 04:27 Dose: 500 units Documented by: Hydromorphone HCl (Hydromorphone/Normal Saline 15 Mg/30 Ml Construction Project Engineer) 15 mg IV ASDIRECTED PRN; Protocol PRN Reason: COMPUTATIONAL THEORY SCIENTIST PAIN CONTROL Last Admin: 12/23/20 09:50 Dose: 15 mg Documented by: Hydroxyzine HCl (Hydroxyzine Hcl 100 Mg/2 Ml Sdv) 0 mg IM Q4H PRN PRN Reason: PAIN Last Admin: 12/25/20 04:28 Dose: 100 mg Documented by: Dextrose/Lactated Ringer's (Dextrose 5%-Lactated Ringers) 1,000 mls @ 25 mls/hr IV ASDIRECTED [facility] Last Admin: 12/23/20 17:44 Dose: 25 mls/hr Documented by: Albumin Human (Albumin 25%) 25 gm in 100 mls @ 25 mls/hr IV Q24H [facility] Stop: 12/25/20 13:59 Last Admin: 12/24/20 11:00 Dose: 25 mls/hr Documented by: Multivitamins/Minerals 10 ml/Zinc 1 ml/ Amino Ac/Electrol/Dextrose/Calcium 1,011 mls @ 60 mls/hr IV .BY DURATION [facility] Last Admin: 12/24/20 16:57 Dose: 60 mls/hr Documented by: Amino Ac/Electrol/Dextrose/Calcium (Clinimix E 5/15) 1,000 mls @ 60 mls/hr IV .BY DURATION [facility] Melatonin (Melatonin 3 Mg Tab) 9 mg PO BEDTIME [facility] Last Admin: 12/24/20 20:20 Dose: 9 mg Documented by: Metoprolol Tartrate (Metoprolol Tartrate 25 Mg Tab) 25 mg PO Q12H [facility] Last Admin: 12/25/20 08:18 Dose: Not Given Documented by: Naloxone HCl (Naloxone 0.4 Mg/Ml Sdv) 0.1 mg IV ASDIRECTED PRN PRN Reason: decreased respiratory rate Scopolamine Patch (Check) 1 each TOP DAILY [facility] Last Admin: 12/24/20 09:12 Dose: Not Given Documented by: Ondansetron HCl (Ondansetron 4 Mg/2 Ml Sdv) 4 mg IVPUSH Q4H PRN PRN Reason: Nausea Pantoprazole Sodium (Pantoprazole 40 Mg Tab.Cr) 40 mg PO ACDINNER [facility] Last Admin: 12/24/20 17:00 Dose: Not Given Documented by: Propafenone HCl (Propafenone 150 Mg Tab) 225 mg PO TID [facility] Last Admin: 12/25/20 08:18 Dose: Not Given Documented by: Tamsulosin HCl (Tamsulosin 0.4 Mg Cap.Er) 0.4 mg PO BEDTIME [facility] Last Admin: 12/24/20 20:23 Dose: 0.4 mg Documented by: Discontinued Medications Acetaminophen (Acetaminophen 500 Mg Tab) 1,000 mg PO ONETIME ONE Stop: 12/21/20 05:46 Last Admin: 12/21/20 06:20 Dose: 1,000 mg Documented by: Alvimopan (Alvimopan 12 Mg Capsule) 12 mg PO ONETIME ONE Stop: 12/21/20 06:37 Last Admin: 12/21/20 07:02 Dose: 12 mg Documented by: Bupivacaine HCl (Bupivacaine 0.5% 50 Ml Mdv) Confirm Administered Dose 50 ml .ROUTE .STK-MED ONE Stop: 12/21/20 06:40 Bupivacaine HCl (Bupivacaine 0.5% 50 Ml Mdv) Confirm Administered Dose 50 ml .ROUTE .STK-MED ONE Stop: 12/23/20 06:36 Last Admin: 12/23/20 09:57 Dose: 17.5 ml Documented by: Cefoxitin Sodium (Cefoxitin 2 Gm Vial) Confirm Administered Dose 2 gm .ROUTE .STK-MED ONE Stop: 12/21/20 12:39 Meropenem 500 mg/ Sodium (Chloride 750 ml) 0 mg .XX ONETIME ONE Stop: 12/21/20 07:16 Last Admin: 12/21/20 07:10 Dose: 700 cont Documented by: Ropivacaine 45 ml/Dexamethasone 8 mg/Epinephrine HCl 0.4 mg/ Sodium Chloride 32.6 ml 0 ml NERVRT ASDIRECTED [facility] Last Admin: 12/23/20 08:36 Dose: 80 syringe Documented by: Dexamethasone (Dexamethasone 4 Mg/Ml Sdv) Confirm Administered Dose 4 mg .ROUTE .STK-MED ONE Stop: 12/21/20 07:13 Digoxin (Digoxin 500 Mcg/2 Ml Amp) 125 mcg IVPUSH ONETIME ONE Stop: 12/21/20 17:16 Last Admin: 12/21/20 17:15 Dose: 125 mcg Documented by: Digoxin (Digoxin 500 Mcg/2 Ml Amp) Confirm Administered Dose 500 mcg .ROUTE .STK-MED ONE Stop: 12/21/20 17:14 Last Admin: 12/21/20 17:27 Dose: Not Given Documented by: Fentanyl (Fentanyl 250 Mcg/5 Ml Sdv) Confirm Administered Dose 250 mcg .ROUTE .STK-MED ONE Stop: 12/21/20 07:12 Fentanyl (Fentanyl 100 Mcg/2 Ml Sdv) Confirm Administered Dose 100 mcg .ROUTE .STK-MED ONE Stop: 12/21/20 12:20 Fentanyl (Fentanyl 100 Mcg/2 Ml Sdv) Confirm Administered Dose 100 mcg .ROUTE .STK-MED ONE Stop: 12/21/20 14:19 Furosemide (Furosemide 20 Mg/2 Ml Vial) 20 mg IVPUSH ONETIME ONE Stop: 12/23/20 09:31 Last Admin: 12/23/20 10:20 Dose: 20 mg Documented by: Furosemide (Furosemide 20 Mg/2 Ml Vial) 20 mg IVPUSH Q6H [facility] Stop: 12/24/20 14:31 Last Admin: 12/24/20 14:02 Dose: 20 mg Documented by: Glycopyrrolate (Glycopyrrolate 0.2 Mg/Ml 5 Ml Mdv) Confirm Administered Dose 1 mg .ROUTE .STK-MED ONE Stop: 12/21/20 07:13 Haloperidol Lactate (Haloperidol Lactate 5 Mg/Ml Sdv) 2.5 mg IVPUSH Q4H PRN PRN Reason: Agitation Last Admin: 12/24/20 22:57 Dose: 2.5 mg Documented by: Heparin Sodium (Porcine) (Heparin Sodium 100 Units/Ml 5 Ml Syringe) Confirm Administered Dose 500 units .ROUTE .STK-MED ONE Stop: 12/23/20 06:56 Last Admin: 12/23/20 09:58 Dose: 500 units Documented by: Dextrose/Lactated Ringer's (Dextrose 5%-Lactated Ringers) 1,000 mls @ 100 mls/hr IV ASDIRECTED [facility] Last Admin: 12/21/20 06:20 Dose: 100 mls/hr Documented by: Cefoxitin Sodium 2 gm/ Sodium (Chloride) 50 mls @ 100 mls/hr IV ONETIME ONE Stop: 12/21/20 08:14 Last Admin: 12/21/20 07:52 Dose: 100 mls/hr Documented by: Linezolid (Zyvox) Confirm Administered Dose 300 mls @ as directed .ROUTE .[facility] ONE Stop: 12/21/20 06:40 Fentanyl 2,500 mcg/ Sodium (Chloride) 250 mls @ 0 mls/hr EPIDUR TITRATE [facility]; Protocol Last Admin: 12/23/20 02:29 Dose: 8 mls/hr, 8 mls/hr Documented by: Sodium Chloride (Normal Saline) Confirm Administered Dose 10 mls @ as directed .ROUTE .[facility] ONE Stop: 12/21/20 07:15 Sodium Chloride (Normal Saline) Confirm Administered Dose 10 mls @ as directed .ROUTE .[facility] ONE Stop: 12/21/20 08:35 Lactated Ringer's (Ringers, Lactated) Confirm Administered Dose 1,000 mls @ as directed .ROUTE .[facility] ONE Stop: 12/21/20 09:49 Linezolid (Zyvox) Confirm Administered Dose 300 mls @ as directed .ROUTE .[facility] ONE Stop: 12/21/20 09:50 Sodium Chloride (Normal Saline) Confirm Administered Dose 10 mls @ as directed .ROUTE .[facility] ONE Stop: 12/21/20 12:39 Lactated Ringer's (Ringers, Lactated) Confirm Administered Dose 1,000 mls @ as directed .ROUTE .[facility] ONE Stop: 12/21/20 13:24 Dextrose/Lactated Ringer's (Dextrose 5%-Lactated Ringers) 1,000 mls @ 75 mls/hr IV ASDIRECTED [facility] Last Admin: 12/22/20 20:01 Dose: 100 mls/hr Documented by: Lactated Ringer's (Ringers, Lactated) 1,000 mls @ 100 mls/hr IV ASDIRECTED [facility] Last Admin: 12/22/20 08:31 Dose: 100 mls/hr Documented by: Cefoxitin Sodium 2 gm/ Sodium (Chloride) 50 mls @ 100 mls/hr IV Q6H [facility] Stop: 12/23/20 10:29 Last Admin: 12/23/20 10:28 Dose: 100 mls/hr Documented by: Lactated Ringer's (Ringers, Lactated) 500 mls @ 999 mls/hr IV ASDIRECTED [facility] Stop: 12/21/20 17:46 Last Admin: 12/21/20 17:10 Dose: 999 mls/hr Documented by: Lactated Ringer's (Ringers, Lactated) 500 mls @ 999 mls/hr IV ASDIRECTED [facility] Stop: 12/21/20 18:31 Last Admin: 12/21/20 18:00 Dose: 999 mls/hr Documented by: Norepinephrine Bitartrate 8 mg (/ Dextrose/Water) 258 mls @ 3.87 mls/hr IV TITRATE [facility]; Protocol Last Infusion: 12/22/20 23:28 Dose: 2 mcg/min, 3.87 mls/hr Documented by: Magnesium Sulfate 2 gm/ Premix 50 mls @ 25 mls/hr IV Q6H [facility] Stop: 12/22/20 02:14 Last Admin: 12/21/20 23:50 Dose: 25 mls/hr Documented by: Esmolol HCl (Esmolol Hcl In Sterile Water 2,500 Mg/250 Ml) 250 mls @ 27.488 mls/hr IV TITRATE [facility]; Protocol Last Admin: 12/22/20 03:23 Dose: 300 mcg/kg/min, 164.927 mls/hr Documented by: Diltiazem HCl 100 mg/ Sodium (Chloride) 100 mls @ 5 mls/hr IV TITRATE [facility]; Protocol Last Titration: 12/22/20 09:58 Dose: 13 mg/hr, 13 mls/hr Documented by: Lactated Ringer's (Ringers, Lactated) Confirm Administered Dose 1,000 mls @ as directed .ROUTE .STK-MED ONE Stop: 12/23/20 07:39 Potassium Phosphate 22.5 mmole (/ Sodium Chloride) 107.5 mls @ 27 mls/hr IV Q4H [facility] Stop: 12/23/20 18:59 Last Admin: 12/23/20 15:06 Dose: 27 mls/hr Documented by: Multivitamins/Minerals 10 ml/Zinc 1 ml/ Amino Ac/Electrol/Dextrose/Calcium 1,011 mls @ 82 mls/hr IV .BY DURATION [facility] Stop: 12/24/20 14:30 Last Admin: 12/23/20 13:46 Dose: 82 mls/hr Documented by: Amino Ac/Electrol/Dextrose/Calcium (Clinimix E 5/15) 1,000 mls @ 82 mls/hr IV .BY DURATION [facility] Stop: 12/24/20 14:30 Last Admin: 12/24/20 01:59 Dose: 82 mls/hr Documented by: Potassium Phosphate 22.5 mmole (/ Sodium Chloride) 107.5 mls @ 27 mls/hr IV Q4H [facility] Stop: 12/24/20 17:59 Last Admin: 12/24/20 15:27 Dose: 27 mls/hr Documented by: Lidocaine/Epinephrine (Lidocaine 1% With Epinephrine 1:100,000 50 Ml Mdv) Confirm Administered Dose 50 ml .ROUTE .STK-MED ONE Stop: 12/21/20 06:40 Lidocaine/Epinephrine (Lidocaine 1% With Epinephrine 1:100,000 50 Ml Mdv) Confirm Administered Dose 50 ml .ROUTE .STK-MED ONE Stop: 12/23/20 06:36 Last Admin: 12/23/20 09:58 Dose: 17.5 ml Documented by: Linezolid (Linezolid 600 Mg/300 Ml Bag) 1,200 mg IRR .STK-MED ONE Stop: 12/21/20 09:59 Last Admin: 12/21/20 09:58 Dose: 1,200 mg Documented by: Meropenem (Meropenem 500 Mg Sdv) Confirm Administered Dose 500 mg .ROUTE .STK- MED ONE Stop: 12/21/20 06:40 Last Admin: 12/21/20 09:58 Dose: 1,000 mg Documented by: Meropenem (Meropenem 500 Mg Sdv) Confirm Administered Dose 500 mg .ROUTE .STK- MED ONE Stop: 12/21/20 09:50 Meropenem (Meropenem 500 Mg Sdv) Confirm Administered Dose 500 mg .ROUTE .STK- MED ONE Stop: 12/23/20 06:36 Last Admin: 12/23/20 09:59 Dose: 500 mg Documented by: Metoprolol Tartrate (Metoprolol Tartrate 25 Mg Tab) 12.5 mg PO BID [facility] Last Admin: 12/21/20 20:29 Dose: Not Given Documented by: Metoprolol Tartrate (Metoprolol Tartrate 5 Mg/5 Ml Sdv) 5 mg IVPUSH ONETIME ONE Stop: 12/21/20 17:01 Last Admin: 12/22/20 20:18 Dose: Not Given Documented by: Metoprolol Tartrate (Metoprolol Tartrate 5 Mg/5 Ml Sdv) 5 mg IVPUSH Q4H [facility] Last Admin: 12/21/20 19:37 Dose: 5 mg Documented by: Midazolam HCl (Midazolam 1 Mg/Ml 2 Ml Sdv) 1 mg IVPUSH ONETIME ONE Stop: 12/23/20 05:54 Last Admin: 12/23/20 06:10 Dose: 1 mg Documented by: Midazolam HCl (Midazolam 1 Mg/Ml 2 Ml Sdv) 1 mg IV Q4H PRN PRN Reason: RESTLESSNESS Naloxone HCl (Naloxone 0.4 Mg/Ml Sdv) 0.1 mg IVPUSH Q5M PRN PRN Reason: RESP RATE LESS THAN 6/MINUTE Naloxone HCl (Naloxone 0.4 Mg/Ml Sdv) 0.4 mg IVPUSH ONETIME PRN PRN Reason: Itching Last Admin: 12/22/20 20:00 Dose: 0.4 mg Documented by: Neostigmine Methylsulfate (Neostigmine Methylsulfate 1 Mg/Ml 5 Ml Syringe) Confirm Administered Dose 5 mg .ROUTE .STK-MED ONE Stop: 12/21/20 07:13 Ondansetron HCl (Ondansetron 4 Mg/2 Ml Sdv) Confirm Administered Dose 4 mg .ROUTE .STK-MED ONE Stop: 12/21/20 07:13 Pantoprazole Sodium (Pantoprazole 40 Mg Vial) 40 mg IV Q24H [facility] Last Admin: 12/23/20 15:13 Dose: 40 mg Documented by: Propafenone HCl (Propafenone 150 Mg Tab) 225 mg PO DAILY [facility] Last Admin: 12/22/20 08:41 Dose: Not Given Documented by: Propofol (Propofol 200 Mg/20 Ml Sdv) Confirm Administered Dose 200 mg .ROUTE .STK-MED ONE Stop: 12/21/20 07:13 Propofol (Propofol 200 Mg/20 Ml Sdv) Confirm Administered Dose 200 mg .ROUTE .STK-MED ONE Stop: 12/23/20 07:10 Propofol (Propofol 200 Mg/20 Ml Sdv) Confirm Administered Dose 200 mg .ROUTE .STK-MED ONE Stop: 12/23/20 08:05 Rocuronium [place] (Rocuronium 50 Mg/5 Ml Vial) Confirm Administered Dose 50 mg .ROUTE .STK-MED ONE Stop: 12/21/20 07:13 Rocuronium [place] (Rocuronium 50 Mg/5 Ml Vial) Confirm Administered Dose 50 mg .ROUTE .STK-MED ONE Stop: 12/21/20 09:03 Rocuronium [place] (Rocuronium 50 Mg/5 Ml Vial) Confirm Administered Dose 50 mg .ROUTE .STK-MED ONE Stop: 12/21/20 12:11 Scopolamine (Scopolamine 1.5 Mg Transdermal Patch) Confirm Administered Dose 1.5 mg .ROUTE .STK-MED ONE Stop: 12/21/20 08:29 Scopolamine (Scopolamine 1.5 Mg Transdermal Patch) 1.5 mg TOP Q72H [facility] Succinylcholine Chloride (Succinylcholine 200 Mg/10 Ml Mdv) Confirm Administered Dose 200 mg .ROUTE .STK-MED ONE Stop: 12/21/20 07:13 - Exam Quality Assessment: No: Supplemental Oxygen Central Line Total Time: 1Days 12Hours Urinary Catheter Total Time: 3Days 23Hours General: Alert, Cooperative, No Acute Distress. No: Oriented HEENT: Pupils Equal Neck: JVD Lungs: Normal Respiratory Effort, Decreased Breath Sounds (mild both bases), Crackles (mild both bases) Cardiovascular: Regular Rate, No Murmurs, Irregular Rhythm GI/Abdominal Exam: Soft, No Distention Extremities: No Pedal Edema. No: Increased Warmth Skin: Warm, Dry Psy/Mental Status: Alert, Normal Affect. No: Agitated Sepsis Event Note - Evaluation Sepsis Screening Result: No Definite Risk - Focused Exam Vital Signs: Vital Signs Temp Pulse Resp BP BP Pulse Ox 12/25/20 10:48 35.8 C L 97 18 146/81 H 96 12/25/20 07:34 36.0 C L 102 H 16 144/77 H 98 12/25/20 07:05 94 L 12/25/20 02:20 93 L 12/25/20 02:06 36.4 C 93 18 151/84 H 96 Consult PN Assessment/Plan POD#: 4 Procedures: Procedures AGENT NOS ASSAY W/OPTIC (04/06/20) AIRWAY INHALATION TREATMENT (05/25/20) ASSAY OF CK (CPK) (03/14/20) ASSAY OF FERRITIN (03/05/20) ASSAY OF LACTIC ACID (05/30/20) ASSAY OF MAGNESIUM (08/09/20) ASSAY OF NATRIURETIC PEPTIDE (05/30/20) ASSAY OF TROPONIN QUANT (08/09/20) BLOOD CULTURE FOR BACTERIA (04/06/20) BLOOD TRANSFUSION SERVICE (03/05/20) BLOOD TYPING SEROLOGIC ABO (05/30/20) BLOOD TYPING SEROLOGIC RH(D) (05/30/20) C DIFF AMPLIFIED PROBE (03/14/20) C-REACTIVE PROTEIN (04/06/20) CARCINOEMBRYONIC ANTIGEN (05/30/20) CARPAL TUNNEL SURGERY (02/18/13) COMPATIBILITY TEST ANTIGLOB (05/30/20) COMPATIBILITY TEST SPIN (05/30/20) COMPLETE CBC AUTOMATED (08/09/20) COMPLETE CBC W/AUTO DIFF WBC (05/30/20) COMPREHEN METABOLIC PANEL (05/30/20) CT ABD & PELV W/CONTRAST (05/30/20) CT ANGIOGRAPHY CHEST (05/28/20) CT THORAX DX C+ (05/30/20) CULTURE SCREEN ONLY (05/30/20) ELECTROCARDIOGRAM REPORT (03/14/20) ELECTROCARDIOGRAM TRACING (05/30/20) EMERGENCY DEPT VISIT (08/09/20) EMERGENCY DEPT VISIT (05/25/20) EMERGENCY DEPT VISIT (05/25/20) EMERGENCY DEPT VISIT (04/06/20) EMERGENCY DEPT VISIT (04/06/20) EMERGENCY DEPT VISIT (10/07/18) EVALUATE SWALLOWING FUNCTION (03/05/20) EXTREMITY STUDY (05/27/20) FIBRIN DEGRADATION QUANT (03/05/20) HEMOGLOBIN (05/30/20) HEPATIC FUNCTION PANEL (03/14/20) HOSPITAL DISCHARGE DAY (03/14/20) HOSPITAL DISCHARGE DAY (03/05/20) HYDRATE IV INFUSION ADD-ON (10/07/18) IMMUNOHISTO ANTB 1ST STAIN (05/30/20) IMMUNOHISTO ANTB ADDL SLIDE (05/30/20) INITIAL HOSPITAL CARE (03/05/20) INSERT TEMP BLADDER CATH (03/14/20) LACTATE (LD) (LDH) ENZYME (03/05/20) LEUKOCYTE ASSESSMENT FECAL (04/06/20) MEASURE BLOOD OXYGEN LEVEL (03/05/20) METABOLIC PANEL TOTAL CA (08/09/20) OCCULT BLD FECES 1-3 TESTS (05/30/20) OCCULT BLOOD FECES (04/06/20) PROCALCITONIN (PCT) (04/06/20) PROTHROMBIN TIME (03/05/20) PT EVAL MOD COMPLEX 30 MIN (05/30/20) RBC ANTIBODY SCREEN (05/30/20) ROUTINE VENIPUNCTURE (08/09/20) SELF CARE MNGMENT TRAINING (05/30/20) STOOL CULTR AEROBIC BACT EA (04/06/20) SUBSEQUENT HOSPITAL CARE (03/14/20) SUBSEQUENT HOSPITAL CARE (03/14/20) SUBSEQUENT HOSPITAL CARE (03/05/20) SUBSEQUENT HOSPITAL CARE (03/05/20) THER/PROPH/DIAG INJ IV PUSH (10/07/18) THER/PROPH/DIAG IV INF ADDON (03/14/20) THER/PROPH/DIAG IV INF INIT (08/09/20) THERAPEUTIC ACTIVITIES (05/30/20) THERAPEUTIC EXERCISES (05/30/20) TISSUE EXAM BY PATHOLOGIST (05/30/20) TTE W/DOPPLER COMPLETE (05/30/20) TX/PRO/DX INJ NEW DRUG ADDON (03/05/20) TX/PRO/DX INJ SAME DRUG SOUND ART INSTRUCTOR (03/14/20) TX/PROPH/DG ADDL SEQ IV INF (03/14/20) URINALYSIS AUTO W/SCOPE (08/09/20) URINE CULTURE/COLONY COUNT (03/05/20) US EXAM ABDOM COMPLETE (03/14/20) X-RAY EXAM CHEST 1 VIEW (05/30/20) X-RAY EXAM OF SHOULDER (03/14/20) (1) Atrial fibrillation with RVR SNOMED Code(s): 248259182129482 Code(s): I48.91 - UNSPECIFIED ATRIAL FIBRILLATION Current Visit: No Problem List Initiated/Reviewed/Updated: Yes My Orders Last 24 Hours: My Active Orders 12/24/20 16:00 Pantoprazole [ProTONIX] 40 mg PO ACDINNER 12/25/20 01:52 Haloperidol Lactate [Haldol] 5 mg IVPUSH Q2H PRN 12/25/20 10:21 Discontinue Telemetry Monitoring [Cardiac Monitoring Discontinue] [RC] Click to Edit 12/25/20 10:52 traMADol [Ultram] 50 mg PO Q6H PRN 12/25/20 10:54 Furosemide [Lasix] 40 mg IVPUSH ONETIME ONE 12/25/20 11:00 Divalproex Sodium 125 mg PO BIDMEALS 12/25/20 14:00 Acetaminophen [Tylenol Extra Strength] 1,000 mg PO TID 12/27/20 07:00 OT Evaluation and Treatment [CONS] Routine PT Evaluation and Treatment [CONS] Routine Plan: ASSESSMENT AND PLAN - 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 Little bit confused but otherwise doing fairly well. -Limit IV fluids as able -Dose of furosemide this morning -Postoperative care as per the surgical team Hyperactive delirium-mental status has waxed and waned throughout the hospital stay. Better with less narcotics and after the scopolamine patch was stopped. -Scheduled acetaminophen for pain control -Melatonin at bedtime -Trial of low-dose Depakote Rapid atrial fibrillation-rate control has improved with oral medications. -Metoprolol 25 mg every 12 hours -Propafenone 3 times a day -Additional rate control if indicated -Continue cardiac monitoring Postoperative hypotension-probably related to third spacing. He has been weaned off of the norepinephrine and blood pressure has remained stable. Anemia due to blood loss-after today he will have had 5 units of blood total, 2 during surgery and 3 after surgery. Hemoglobin stable. -I would recommend a transfusion threshold of the hemoglobin less than 8 Acute kidney injury-creatinine has trended down with volume resuscitation after surgery. History of congestive heart failure-patient has mild evidence for volume o verload. Furosemide ordered again today. Maintenance issues - -DVT prophylaxis-mechanical -GI prophylaxis-PPI -Nutrition-full liquids -Gan catheter-necessary for strict intake and output monitoring, reassess daily Disposition-I would anticipate discharge to the [facility] for subacute rehab after the hospital stay. Antonio Washington M.D.
[2020-12-25] MEDS ORDERED: Divalproex Sodium Delayed-Release 250 MG Tab.CR PO SCH (11:00)
[2020-12-25] MEDS: SCOPOLAMINE PATCH CHECK TOP SCH (11:58)
[2020-12-25] MEDS: Divalproex Sodium Delayed-Release 125 MG Cap.Sprink PO SCH ×2 (12:26→17:00)
[2020-12-25] MEDS: Acetaminophen 500 MG Tab PO SCH ×2 (13:13→23:21)
[2020-12-25] MEDS: traMADol 50 MG Tab PO PRN ×2 (13:14→16:21)
[2020-12-25] MEDS: Pantoprazole 40 MG Tab.CR PO SCH (18:22)
[2020-12-25] MEDS: Melatonin 3 MG Tab PO SCH (23:22)
[2020-12-25] MEDS: Tamsulosin 0.4 MG Cap.ER PO SCH (23:22)
[2020-12-26] MEDS: 1: AA 5%/Calcium/D15W/Lytes 1,000 ML with MVI, Adult with Vitamin K 10 ML, Zinc/Copper/M IV SCH ×6 (02:54→20:04)
[2020-12-26] MEDS ORDERED: Potassium Chloride 20 MEQ Tab.ER PO ONE (06:57)
[2020-12-26] MEDS ORDERED: Central Total Parenteral Nutrition Bag SCH (07:00)
[2020-12-26] MEDS ORDERED: Potassium Phosphates 45 MMOLE in Sodium Chloride 0.9% 250 ML IV SCH (07:00)
[2020-12-26] MEDS: Magnesium Sulfate/Water 2 GM/50 ML BAG IV SCH ×3 (08:58→20:33)
[2020-12-26] MEDS: Bisacodyl 5 MG Tab PO SCH ×2 (09:03→20:41)
[2020-12-26] MEDS: atorvaSTATin 10 MG Tab PO SCH (09:05)
[2020-12-26] MEDS: Aspirin 81 MG Tab.EC PO SCH (09:05)
[2020-12-26] MEDS: Docusate Sodium 100 MG Cap PO SCH ×2 (09:05→20:41)
[2020-12-26] MEDS: Acetaminophen 500 MG Tab PO SCH ×3 (09:06→20:41)
[2020-12-26] MEDS: Divalproex Sodium Delayed-Release 125 MG Cap.Sprink PO SCH ×2 (09:06→17:41)
[2020-12-26] MEDS: Metoprolol Tartrate 25 MG Tab PO SCH ×2 (09:07→20:42)
--- NOTE | 2020-12-26 09:27 | PN ---
DATE OF SERVICE: 12/25/2020 SUBJECTIVE: Arnie has had a rough night as far as confusion. He has pulled on his catheter, which caused some bloody urine. Vital signs otherwise have been stable. He has not slept much quite a bit in the form of confusion. LABORATORY DATA: Hemoglobin 10.1, BNP is 6563. TPN is running without difficulty and vital signs, he has been afebrile. REVIEW OF SYSTEMS: Remainder of review of systems negative for any pertinent positives and negatives. OBJECTIVE: GENERAL: Arnie Infante is a pleasant 89-year-old male. VITAL SIGNS: TPR is 96.8, 102, 16, and blood pressure 144/77. HEENT: Negative. NECK: Supple. HEART: Regular rate and rhythm. LUNGS: Clear. ABDOMEN: Colostomy intact. DOTTIE drains draining a light pink drainage, 320 mL and 315 mL respectively. GENITOURINARY: Urine output via Gan catheter was 2390 and it is red. EXTREMITIES: Without peripheral edema. ASSESSMENT: Exploratory laparotomy with: 1. Anterior perineal repair. 2. Mobilization of omentum, intraperitoneal mesh to displace small bowel from pelvis. POSTOPERATIVE DIAGNOSES: 1. Low rectal adenocarcinoma, status neoadjuvant chemoradiation treatment. Date of procedure 12/21/2020, Mohsen Duggan MD. 2. Delayed primary closure on 12/23/2020 for open abdominal incision. Surgeon: Mohsen Duggan MD. PLAN: Continue same TPN rate and content. Check laboratories in a.m. we will evaluate p.r.n. or in a.m. Tisha Crocker PA-C /[id number]
[2020-12-26] MEDS: Potassium Phosphates 22.5 MMOLE in Sodium Chloride 0.9% 100 ML IV SCH ×2 (09:43→13:24)
[2020-12-26] MEDS ORDERED: POTASSIUM PHOSPHATES IV SCH (10:00)
[2020-12-26] MEDS ORDERED: SODIUM CHLORIDE IV SCH (10:00)
--- NOTE | 2020-12-26 10:12 | PN ---
DATE OF SERVICE: 12/26/2020 SUBJECTIVE: Arnie slept all night. He was started on Depakote, and he was given melatonin for sleep. He did have Ultram for pain yesterday, seems less confused. Oral intake 600, ostomy put out 100, Gan catheter 3600 of blood tinged urine. DOTTIE drains 1 and 2 put out 235 and 135 of a pink drainage. He has remained afebrile. Pulse ranged from 102 to 95. REVIEW OF SYSTEMS: Remainder of review of systems negative for any pertinent positives or negatives. LABORATORY DATA: Hemoglobin 9.2, potassium 3.4, phosphorus 2.6, and magnesium is 1.7. BNP is 7194. OBJECTIVE: GENERAL: Arnie Infante is a pleasant 89-year-old male. He is alert today. VITAL SIGNS: TPR from 12/25/2020 at 1800 is 96.8, 95, and 18. Blood pressure 136/66, O2 by pulse oximetry is 95% on no oxygen. HEENT: Negative. NECK: Supple. HEART: Regular rate and rhythm. LUNGS: Decreased breath sounds due to inability to really take a deep breath. ABDOMEN: Colostomy is on. It had been changed twice yesterday due to becoming loose. DOTTIE drains as above. EXTREMITIES: Revealed trace peripheral edema. GENITOURINARY: Gan catheter remains in. Urine remains blood tinged. Per nursing staff, there is an increased amount of penis and scrotal swelling, that if he is unable to void, it will be very difficult to get the Gan catheter replaced. ASSESSMENT: Exploratory laparotomy with anterior perineal repair. Mobilization of omentum, intraperitoneal mesh to displace small bowel from pelvis. POSTOPERATIVE DIAGNOSES: 1. Low rectal adenocarcinoma, status post neoadjuvant chemoradiation treatment. Date of procedure 12/21/2020. Surgeon: Mohsen Duggan MD. 1. Delayed primary closure of open abdominal incision. 2. Insertion of right subclavian vein triple lumen catheter. 3. Indication for central venous access. 4. Open abdominal incision. Date of procedure 12/23/2020. Surgeon: Moshen Duggan MD. 1. TPN nutrition. 2. Atrial fibrillation with rapid ventricular response. PLAN: 1. Continue same TPN rate and content. 2. K-Phos 45 millimoles IV. 3. Magnesium 2 g IV q.6 hours x72 hours. 4. Check CBC, CMP, phos, and BNP in a.m. 5. Leave Gan catheter in due to edematous penis, scrotal swelling, and blood tinged urine. 6. Continue incentive spirometer and ambulation. 7. We will evaluate p.r.n. or in a.m. Tisha Crocker PA-C /[id number]
--- NOTE | 2020-12-26 13:53 | PCM.CONSN ---
- General Info Date of Service: 12/26/20 Subjective Update: No acute events overnight. Patient has been stable. He is more alert and interactive though still somewhat confused. He is taking his medications today. He does not complain of any abdominal pain. He does not complain of shortness of breath. Ostomy continues to function. Heart rate has been well controlled. Requiring assistance to get from the bed to the chair. Functional Status: Reports: Pain Controlled, Tolerating Diet - Review of Systems General: Reports: Weakness Neurological: Reports: Confusion - Patient Data Vitals - Most Recent: Last Vital Signs Temp 35.3 C L 12/26/20 10:58 Pulse 79 12/26/20 10:58 Resp 18 12/26/20 10:58 BP 94/44 L 12/26/20 10:58 Pulse Ox 97 12/26/20 10:58 Weight - Most Recent: 91.626 kg I&O - Last 24 Hours: Intake & Output 12/25/20 12/26/20 12/26/20 22:59 06:59 14:59 Intake Total 695 061 1905 Output Total 730 1235 980 Balance -2 -344 540 Lab Results Last 24 Hours: Laboratory Results - last 24 hr 12/21/20 12/26/20 12/26/20 Range/Units 06:06 04:20 04:20 WBC 7.1 (4.5-11.0) K/uL RBC 3.47 L (4.30-5.90) M/uL Hgb 9.2 L (12.0-15.0) g/dL Hct 30.8 L (40.0-54.0) % MCV 89 (80-98) fL MCH 27 (27-31) pg MCHC 30 L (32-36) % Plt Count 134 L (150-400) K/uL Sodium 146 (140-148) mmol/L Potassium 3.4 L (3.6-5.2) mmol/L Chloride 110 H (100-108) mmol/L Carbon Dioxide 30 (21-32) mmol/L Anion Gap 9.4 (5.0-14.0) mmol/L BUN 34 H (7-18) mg/dL Creatinine 1.1 (0.8-1.3) mg/dL Est Cr Clr Drug Dosing 47.93 mL/min Estimated GFR (MDRD) > 60 (>60) Glucose 99 (74-106) mg/dL Calcium 8.7 (8.5-10.1) mg/dL Phosphorus 2.6 (2.5-4.9) mg/dL Magnesium 1.7 L (1.8-2.4) mg/dL Total Bilirubin 0.8 D (0.2-1.0) mg/dL AST 27 (15-37) U/L ALT 34 (12-78) U/L Alkaline Phosphatase 52 (46-116) U/L NT-Pro-B Natriuret Pep 7194 H (5-450) pg/mL Total Protein 4.4 L (6.4-8.2) g/dL Albumin 2.2 L (3.4-5.0) g/dL Globulin 2.2 L (2.3-3.5) g/dL Albumin/Globulin Ratio 1.0 L (1.2-2.2) Crossmatch See Detail Med Orders - Current: Current Medications Acetaminophen (Acetaminophen 500 Mg Tab) 1,000 mg PO TID [facility] Last Admin: 12/26/20 09:06 Dose: 1,000 mg Documented by: Aspirin (Aspirin 81 Mg Tab.Ec) 81 mg PO DAILY [facility] Last Admin: 12/26/20 09:05 Dose: 81 mg Documented by: Atorvastatin Calcium (Atorvastatin 10 Mg Tab) 10 mg PO DAILY [facility] Last Admin: 12/26/20 09:05 Dose: 10 mg Documented by: Bisacodyl (Bisacodyl 5 Mg Tab) 10 mg PO BID [facility] Last Admin: 12/26/20 09:03 Dose: 10 mg Documented by: Diphenhydramine HCl (Diphenhydramine 25 Mg Cap) 25 mg PO Q4H PRN PRN Reason: Itching Last Admin: 12/25/20 16:21 Dose: 25 mg Documented by: Divalproex Sodium (Divalproex Sodium Delayed-Release 125 Mg Cap.Sprink) 125 mg PO BIDMEALS [facility] Last Admin: 12/26/20 09:06 Dose: 125 mg Documented by: Docusate Sodium (Docusate Sodium 100 Mg Cap) 100 mg PO BID [facility] Last Admin: 12/26/20 09:05 Dose: 100 mg Documented by: Furosemide (Furosemide 20 Mg/2 Ml Vial) 20 mg IVPUSH Q8H [facility] Stop: 12/27/20 06:01 Haloperidol Lactate (Haloperidol Lactate 5 Mg/Ml Sdv) 5 mg IVPUSH Q2H PRN PRN Reason: Agitation Last Admin: 12/25/20 14:56 Dose: 5 mg Documented by: Heparin Sodium (Porcine) (Heparin Sodium 100 Units/Ml 5 Ml Syringe) 500 units FLUSH ASDIRECTED PRN PRN Reason: IV Use Last Admin: 12/26/20 04:29 Dose: 500 units Documented by: Hydromorphone HCl (Hydromorphone/Normal Saline 15 Mg/30 Ml Formula Technician) 15 mg IV ASDIRECTED PRN; Protocol PRN Reason: DES[employer] D[employer]FTSM[employer] PAIN CONTROL Last Admin: 12/23/20 09:50 Dose: 15 mg Documented by: Hydroxyzine HCl (Hydroxyzine Hcl 100 Mg/2 Ml Sdv) 0 mg IM Q4H PRN PRN Reason: PAIN Last Admin: 12/25/20 04:28 Dose: 100 mg Documented by: Dextrose/Lactated Ringer's (Dextrose 5%-Lactated Ringers) 1,000 mls @ 25 mls/hr IV ASDIRECTED [facility] Last Admin: 12/23/20 17:44 Dose: 25 mls/hr Documented by: Multivitamins/Minerals 10 ml/Zinc 1 ml/ Amino Ac/Electrol/Dextrose/Calcium 1,011 mls @ 60 mls/hr IV .BY DURATION [facility] Last Admin: 12/26/20 02:54 Dose: 60 mls/hr Documented by: Amino Ac/Electrol/Dextrose/Calcium (Clinimix E 5/15) 1,000 mls @ 60 mls/hr IV .BY DURATION [facility] Last Admin: 12/25/20 10:00 Dose: 60 mls/hr Documented by: Magnesium Sulfate (Magnesium Sulfate In Water 2 Gm/50 Ml) 2 gm in 50 mls @ 25 mls/hr IV Q6H [facility] Stop: 12/29/20 04:29 Last Admin: 12/26/20 08:58 Dose: 25 mls/hr Documented by: Potassium Phosphate 22.5 mmole (/ Sodium Chloride) 107.5 mls @ 27 mls/hr IV Q4H [facility] Stop: 12/26/20 17:59 Last Admin: 12/26/20 13:24 Dose: 27 mls/hr Documented by: Melatonin (Melatonin 3 Mg Tab) 9 mg PO BEDTIME [facility] Last Admin: 12/25/20 23:22 Dose: 9 mg Documented by: Metoprolol Tartrate (Metoprolol Tartrate 25 Mg Tab) 25 mg PO Q12H [facility] Last Admin: 12/26/20 09:07 Dose: 25 mg Documented by: Naloxone HCl (Naloxone 0.4 Mg/Ml Sdv) 0.1 mg IV ASDIRECTED PRN PRN Reason: decreased respiratory rate Ondansetron HCl (Ondansetron 4 Mg/2 Ml Sdv) 4 mg IVPUSH Q4H PRN PRN Reason: Nausea Pantoprazole Sodium (Pantoprazole 40 Mg Tab.Cr) 40 mg PO ACDINNER [facility] Last Admin: 12/25/20 18:22 Dose: Not Given Documented by: Propafenone HCl (Propafenone 150 Mg Tab) 225 mg PO TID [facility] Last Admin: 12/26/20 09:04 Dose: 225 mg Documented by: Tamsulosin HCl (Tamsulosin 0.4 Mg Cap.Er) 0.4 mg PO BEDTIME [facility] Last Admin: 12/25/20 23:22 Dose: 0.4 mg Documented by: Tramadol HCl (Tramadol 50 Mg Tab) 50 mg PO Q6H PRN PRN Reason: Pain Last Admin: 12/25/20 16:21 Dose: 50 mg Documented by: Discontinued Medications Acetaminophen (Acetaminophen 500 Mg Tab) 1,000 mg PO ONETIME ONE Stop: 12/21/20 05:46 Last Admin: 12/21/20 06:20 Dose: 1,000 mg Documented by: Alvimopan (Alvimopan 12 Mg Capsule) 12 mg PO ONETIME ONE Stop: 12/21/20 06:37 Last Admin: 12/21/20 07:02 Dose: 12 mg Documented by: Alvimopan (Alvimopan 12 Mg Capsule) 12 mg PO Q12H [facility] Stop: 12/25/20 20:01 Last Admin: 12/25/20 20:55 Dose: Not Given Documented by: Bupivacaine HCl (Bupivacaine 0.5% 50 Ml Mdv) Confirm Administered Dose 50 ml .ROUTE .STK-MED ONE Stop: 12/21/20 06:40 Bupivacaine HCl (Bupivacaine 0.5% 50 Ml Mdv) Confirm Administered Dose 50 ml .ROUTE .STK-MED ONE Stop: 12/23/20 06:36 Last Admin: 12/23/20 09:57 Dose: 17.5 ml Documented by: Cefoxitin Sodium (Cefoxitin 2 Gm Vial) Confirm Administered Dose 2 gm .ROUTE .STK-MED ONE Stop: 12/21/20 12:39 Meropenem 500 mg/ Sodium (Chloride 750 ml) 0 mg .XX ONETIME ONE Stop: 12/21/20 07:16 Last Admin: 12/21/20 07:10 Dose: 700 cont Documented by: Ropivacaine 45 ml/Dexamethasone 8 mg/Epinephrine HCl 0.4 mg/ Sodium Chloride 32.6 ml 0 ml NERVRT ASDIRECTED [facility] Last Admin: 12/23/20 08:36 Dose: 80 syringe Documented by: Dexamethasone (Dexamethasone 4 Mg/Ml Sdv) Confirm Administered Dose 4 mg .ROUTE .STK-MED ONE Stop: 12/21/20 07:13 Digoxin (Digoxin 500 Mcg/2 Ml Amp) 125 mcg IVPUSH ONETIME ONE Stop: 12/21/20 17:16 Last Admin: 12/21/20 17:15 Dose: 125 mcg Documented by: Digoxin (Digoxin 500 Mcg/2 Ml Amp) Confirm Administered Dose 500 mcg .ROUTE .STK-MED ONE Stop: 12/21/20 17:14 Last Admin: 12/21/20 17:27 Dose: Not Given Documented by: Fentanyl (Fentanyl 250 Mcg/5 Ml Sdv) Confirm Administered Dose 250 mcg .ROUTE .STK-MED ONE Stop: 12/21/20 07:12 Fentanyl (Fentanyl 100 Mcg/2 Ml Sdv) Confirm Administered Dose 100 mcg .ROUTE .STK-MED ONE Stop: 12/21/20 12:20 Fentanyl (Fentanyl 100 Mcg/2 Ml Sdv) Confirm Administered Dose 100 mcg .ROUTE .STK-MED ONE Stop: 12/21/20 14:19 Furosemide (Furosemide 20 Mg/2 Ml Vial) 20 mg IVPUSH ONETIME ONE Stop: 12/23/20 09:31 Last Admin: 12/23/20 10:20 Dose: 20 mg Documented by: Furosemide (Furosemide 20 Mg/2 Ml Vial) 20 mg IVPUSH Q6H [facility] Stop: 12/24/20 14:31 Last Admin: 12/24/20 14:02 Dose: 20 mg Documented by: Furosemide (Furosemide 40 Mg/4 Ml Vial) 40 mg IVPUSH ONETIME ONE Stop: 12/25/20 10:55 Last Admin: 12/25/20 11:13 Dose: 40 mg Documented by: Glycopyrrolate (Glycopyrrolate 0.2 Mg/Ml 5 Ml Mdv) Confirm Administered Dose 1 mg .ROUTE .STK-MED ONE Stop: 12/21/20 07:13 Haloperidol Lactate (Haloperidol Lactate 5 Mg/Ml Sdv) 2.5 mg IVPUSH Q4H PRN PRN Reason: Agitation Last Admin: 12/24/20 22:57 Dose: 2.5 mg Documented by: Heparin Sodium (Porcine) (Heparin Sodium 100 Units/Ml 5 Ml Syringe) Confirm Administered Dose 500 units .ROUTE .STK-MED ONE Stop: 12/23/20 06:56 Last Admin: 12/23/20 09:58 Dose: 500 units Documented by: Dextrose/Lactated Ringer's (Dextrose 5%-Lactated Ringers) 1,000 mls @ 100 mls/hr IV ASDIRECTED [facility] Last Admin: 12/21/20 06:20 Dose: 100 mls/hr Documented by: Cefoxitin Sodium 2 gm/ Sodium (Chloride) 50 mls @ 100 mls/hr IV ONETIME ONE Stop: 12/21/20 08:14 Last Admin: 12/21/20 07:52 Dose: 100 mls/hr Documented by: Linezolid (Zyvox) Confirm Administered Dose 300 mls @ as directed .ROUTE .STK- MED ONE Stop: 12/21/20 06:40 Fentanyl 2,500 mcg/ Sodium (Chloride) 250 mls @ 0 mls/hr EPIDUR TITRATE [facility]; Protocol Last Admin: 12/23/20 02:29 Dose: 8 mls/hr, 8 mls/hr Documented by: Sodium Chloride (Normal Saline) Confirm Administered Dose 10 mls @ as directed .ROUTE .STK-MED ONE Stop: 12/21/20 07:15 Sodium Chloride (Normal Saline) Confirm Administered Dose 10 mls @ as directed .ROUTE .STK-MED ONE Stop: 12/21/20 08:35 Lactated Ringer's (Ringers, Lactated) Confirm Administered Dose 1,000 mls @ as directed .ROUTE .STK-MED ONE Stop: 12/21/20 09:49 Linezolid (Zyvox) Confirm Administered Dose 300 mls @ as directed .ROUTE .STK- MED ONE Stop: 12/21/20 09:50 Sodium Chloride (Normal Saline) Confirm Administered Dose 10 mls @ as directed .ROUTE .[facility] ONE Stop: 12/21/20 12:39 Lactated Ringer's (Ringers, Lactated) Confirm Administered Dose 1,000 mls @ as directed .ROUTE .[facility] ONE Stop: 12/21/20 13:24 Dextrose/Lactated Ringer's (Dextrose 5%-Lactated Ringers) 1,000 mls @ 75 mls/hr IV ASDIRECTED [facility] Last Admin: 12/22/20 20:01 Dose: 100 mls/hr Documented by: Lactated Ringer's (Ringers, Lactated) 1,000 mls @ 100 mls/hr IV ASDIRECTED [facility] Last Admin: 12/22/20 08:31 Dose: 100 mls/hr Documented by: Cefoxitin Sodium 2 gm/ Sodium (Chloride) 50 mls @ 100 mls/hr IV Q6H [facility] Stop: 12/23/20 10:29 Last Admin: 12/23/20 10:28 Dose: 100 mls/hr Documented by: Lactated Ringer's (Ringers, Lactated) 500 mls @ 999 mls/hr IV ASDIRECTED [facility] Stop: 12/21/20 17:46 Last Admin: 12/21/20 17:10 Dose: 999 mls/hr Documented by: Lactated Ringer's (Ringers, Lactated) 500 mls @ 999 mls/hr IV ASDIRECTED [facility] Stop: 12/21/20 18:31 Last Admin: 12/21/20 18:00 Dose: 999 mls/hr Documented by: Norepinephrine Bitartrate 8 mg (/ Dextrose/Water) 258 mls @ 3.87 mls/hr IV TITRATE [facility]; Protocol Last Infusion: 12/22/20 23:28 Dose: 2 mcg/min, 3.87 mls/hr Documented by: Magnesium Sulfate 2 gm/ Premix 50 mls @ 25 mls/hr IV Q6H [facility] Stop: 12/22/20 02:14 Last Admin: 12/21/20 23:50 Dose: 25 mls/hr Documented by: Esmolol HCl (Esmolol Hcl In Sterile Water 2,500 Mg/250 Ml) 250 mls @ 27.488 mls/hr IV TITRATE [facility]; Protocol Last Admin: 12/22/20 03:23 Dose: 300 mcg/kg/min, 164.927 mls/hr Documented by: Diltiazem HCl 100 mg/ Sodium (Chloride) 100 mls @ 5 mls/hr IV TITRATE [facility]; Protocol Last Titration: 12/22/20 09:58 Dose: 13 mg/hr, 13 mls/hr Documented by: Lactated Ringer's (Ringers, Lactated) Confirm Administered Dose 1,000 mls @ as directed .ROUTE .STK-MED ONE Stop: 12/23/20 07:39 Albumin Human (Albumin 25%) 25 gm in 100 mls @ 25 mls/hr IV Q24H [facility] Stop: 12/25/20 13:59 Last Admin: 12/25/20 10:47 Dose: 25 mls/hr Documented by: Potassium Phosphate 22.5 mmole (/ Sodium Chloride) 107.5 mls @ 27 mls/hr IV Q4H [facility] Stop: 12/23/20 18:59 Last Admin: 12/23/20 15:06 Dose: 27 mls/hr Documented by: Multivitamins/Minerals 10 ml/Zinc 1 ml/ Amino Ac/Electrol/Dextrose/Calcium 1,011 mls @ 82 mls/hr IV .BY DURATION [facility] Stop: 12/24/20 14:30 Last Admin: 12/23/20 13:46 Dose: 82 mls/hr Documented by: Amino Ac/Electrol/Dextrose/Calcium (Clinimix E 5/15) 1,000 mls @ 82 mls/hr IV .BY DURATION [facility] Stop: 12/24/20 14:30 Last Admin: 12/24/20 01:59 Dose: 82 mls/hr Documented by: Potassium Phosphate 22.5 mmole (/ Sodium Chloride) 107.5 mls @ 27 mls/hr IV Q4H [facility] Stop: 12/24/20 17:59 Last Admin: 12/24/20 15:27 Dose: 27 mls/hr Documented by: Lidocaine/Epinephrine (Lidocaine 1% With Epinephrine 1:100,000 50 Ml Mdv) Confirm Administered Dose 50 ml .ROUTE .STK-MED ONE Stop: 12/21/20 06:40 Lidocaine/Epinephrine (Lidocaine 1% With Epinephrine 1:100,000 50 Ml Mdv) Confirm Administered Dose 50 ml .ROUTE .STK-MED ONE Stop: 12/23/20 06:36 Last Admin: 12/23/20 09:58 Dose: 17.5 ml Documented by: Linezolid (Linezolid 600 Mg/300 Ml Bag) 1,200 mg IRR .STK-MED ONE Stop: 12/21/20 09:59 Last Admin: 12/21/20 09:58 Dose: 1,200 mg Documented by: Meropenem (Meropenem 500 Mg Sdv) Confirm Administered Dose 500 mg .ROUTE .STK- MED ONE Stop: 12/21/20 06:40 Last Admin: 12/21/20 09:58 Dose: 1,000 mg Documented by: Meropenem (Meropenem 500 Mg Sdv) Confirm Administered Dose 500 mg .ROUTE .STK- MED ONE Stop: 12/21/20 09:50 Meropenem (Meropenem 500 Mg Sdv) Confirm Administered Dose 500 mg .ROUTE .STK- MED ONE Stop: 12/23/20 06:36 Last Admin: 12/23/20 09:59 Dose: 500 mg Documented by: Metoprolol Tartrate (Metoprolol Tartrate 25 Mg Tab) 12.5 mg PO BID [facility] Last Admin: 12/21/20 20:29 Dose: Not Given Documented by: Metoprolol Tartrate (Metoprolol Tartrate 5 Mg/5 Ml Sdv) 5 mg IVPUSH ONETIME ONE Stop: 12/21/20 17:01 Last Admin: 12/22/20 20:18 Dose: Not Given Documented by: Metoprolol Tartrate (Metoprolol Tartrate 5 Mg/5 Ml Sdv) 5 mg IVPUSH Q4H [facility] Last Admin: 12/21/20 19:37 Dose: 5 mg Documented by: Midazolam HCl (Midazolam 1 Mg/Ml 2 Ml Sdv) 1 mg IVPUSH ONETIME ONE Stop: 12/23/20 05:54 Last Admin: 12/23/20 06:10 Dose: 1 mg Documented by: Midazolam HCl (Midazolam 1 Mg/Ml 2 Ml Sdv) 1 mg IV Q4H PRN PRN Reason: RESTLESSNESS Naloxone HCl (Naloxone 0.4 Mg/Ml Sdv) 0.1 mg IVPUSH Q5M PRN PRN Reason: RESP RATE LESS THAN 6/MINUTE Naloxone HCl (Naloxone 0.4 Mg/Ml Sdv) 0.4 mg IVPUSH ONETIME PRN PRN Reason: Itching Last Admin: 12/22/20 20:00 Dose: 0.4 mg Documented by: Neostigmine Methylsulfate (Neostigmine Methylsulfate 1 Mg/Ml 5 Ml Syringe) Confirm Administered Dose 5 mg .ROUTE .STK-MED ONE Stop: 12/21/20 07:13 Scopolamine Patch (Check) 1 each TOP DAILY [facility] Last Admin: 12/25/20 11:58 Dose: Not Given Documented by: Non-Formulary Medication (Central Total Parenteral Nutrition Bag) 1,000 ml .XX .Continue Order [facility] Stop: 12/26/20 12:00 Ondansetron HCl (Ondansetron 4 Mg/2 Ml Sdv) Confirm Administered Dose 4 mg .ROUTE .STK-MED ONE Stop: 12/21/20 07:13 Pantoprazole Sodium (Pantoprazole 40 Mg Vial) 40 mg IV Q24H [facility] Last Admin: 12/23/20 15:13 Dose: 40 mg Documented by: Potassium Chloride (Potassium Chloride 20 Meq Tab.Er) 40 meq PO ONETIME ONE Stop: 12/26/20 06:58 Last Admin: 12/26/20 09:05 Dose: 40 meq Documented by: Propafenone HCl (Propafenone 150 Mg Tab) 225 mg PO DAILY [facility] Last Admin: 12/22/20 08:41 Dose: Not Given Documented by: Propofol (Propofol 200 Mg/20 Ml Sdv) Confirm Administered Dose 200 mg .ROUTE .STK-MED ONE Stop: 12/21/20 07:13 Propofol (Propofol 200 Mg/20 Ml Sdv) Confirm Administered Dose 200 mg .ROUTE .STK-MED ONE Stop: 12/23/20 07:10 Propofol (Propofol 200 Mg/20 Ml Sdv) Confirm Administered Dose 200 mg .ROUTE .STK-MED ONE Stop: 12/23/20 08:05 Rocuronium [place] (Rocuronium 50 Mg/5 Ml Vial) Confirm Administered Dose 50 mg .ROUTE .STK-MED ONE Stop: 12/21/20 07:13 Rocuronium [place] (Rocuronium 50 Mg/5 Ml Vial) Confirm Administered Dose 50 mg .ROUTE .STK-MED ONE Stop: 12/21/20 09:03 Rocuronium [place] (Rocuronium 50 Mg/5 Ml Vial) Confirm Administered Dose 50 mg .ROUTE .STK-MED ONE Stop: 12/21/20 12:11 Scopolamine (Scopolamine 1.5 Mg Transdermal Patch) Confirm Administered Dose 1.5 mg .ROUTE .STK-MED ONE Stop: 12/21/20 08:29 Scopolamine (Scopolamine 1.5 Mg Transdermal Patch) 1.5 mg TOP Q72H [facility] Succinylcholine Chloride (Succinylcholine 200 Mg/10 Ml Mdv) Confirm Administered Dose 200 mg .ROUTE .STK-MED ONE Stop: 12/21/20 07:13 - Exam Quality Assessment: No: Supplemental Oxygen Central Line Total Time: 2Days 20Hours Urinary Catheter Total Time: 5Days 1Hours General: Alert, Cooperative, No Acute Distress. No: Oriented Lungs: Normal Respiratory Effort, Crackles (few both bases ) Cardiovascular: Regular Rate, Irregular Rhythm GI/Abdominal Exam: Soft, No Distention, Abnormal Bowel Sounds (hypoactive ) Extremities: Pedal Edema (mild both lower legs). No: Increased Warmth Skin: Warm, Dry Psy/Mental Status: Alert, Normal Affect Sepsis Event Note - Evaluation Sepsis Screening Result: No Definite Risk - Focused Exam Vital Signs: Vital Signs Temp Pulse Pulse Resp BP BP BP 12/26/20 10:58 35.3 C L 79 18 94/44 L 12/26/20 09:07 82 127/65 12/26/20 09:04 84 12/26/20 02:35 36.3 C 82 18 127/64 Pulse Ox 12/26/20 10:58 97 12/26/20 09:07 12/26/20 09:04 12/26/20 02:35 95 Consult PN Assessment/Plan Procedures: Procedures AGENT NOS ASSAY W/OPTIC (04/06/20) AIRWAY INHALATION TREATMENT (05/25/20) ASSAY OF CK (CPK) (03/14/20) ASSAY OF FERRITIN (03/05/20) ASSAY OF LACTIC ACID (05/30/20) ASSAY OF MAGNESIUM (08/09/20) ASSAY OF NATRIURETIC PEPTIDE (05/30/20) ASSAY OF TROPONIN QUANT (08/09/20) BLOOD CULTURE FOR BACTERIA (04/06/20) BLOOD TRANSFUSION SERVICE (03/05/20) BLOOD TYPING SEROLOGIC ABO (05/30/20) BLOOD TYPING SEROLOGIC RH(D) (05/30/20) C DIFF AMPLIFIED PROBE (03/14/20) C-REACTIVE PROTEIN (04/06/20) CARCINOEMBRYONIC ANTIGEN (05/30/20) CARPAL TUNNEL SURGERY (02/18/13) COMPATIBILITY TEST ANTIGLOB (05/30/20) COMPATIBILITY TEST SPIN (05/30/20) COMPLETE CBC AUTOMATED (08/09/20) COMPLETE CBC W/AUTO DIFF WBC (05/30/20) COMPREHEN METABOLIC PANEL (05/30/20) CT ABD & PELV W/CONTRAST (05/30/20) CT ANGIOGRAPHY CHEST (05/28/20) CT THORAX DX C+ (05/30/20) CULTURE SCREEN ONLY (05/30/20) ELECTROCARDIOGRAM REPORT (03/14/20) ELECTROCARDIOGRAM TRACING (05/30/20) EMERGENCY DEPT VISIT (08/09/20) EMERGENCY DEPT VISIT (05/25/20) EMERGENCY DEPT VISIT (05/25/20) EMERGENCY DEPT VISIT (04/06/20) EMERGENCY DEPT VISIT (04/06/20) EMERGENCY DEPT VISIT (10/07/18) EVALUATE SWALLOWING FUNCTION (03/05/20) EXTREMITY STUDY (05/27/20) FIBRIN DEGRADATION QUANT (03/05/20) HEMOGLOBIN (05/30/20) HEPATIC FUNCTION PANEL (03/14/20) HOSPITAL DISCHARGE DAY (03/14/20) HOSPITAL DISCHARGE DAY (03/05/20) HYDRATE IV INFUSION ADD-ON (10/07/18) IMMUNOHISTO ANTB 1ST STAIN (05/30/20) IMMUNOHISTO ANTB ADDL SLIDE (05/30/20) INITIAL HOSPITAL CARE (03/05/20) INSERT TEMP BLADDER CATH (03/14/20) LACTATE (LD) (LDH) ENZYME (03/05/20) LEUKOCYTE ASSESSMENT FECAL (04/06/20) MEASURE BLOOD OXYGEN LEVEL (03/05/20) METABOLIC PANEL TOTAL CA (08/09/20) OCCULT BLD FECES 1-3 TESTS (05/30/20) OCCULT BLOOD FECES (04/06/20) PROCALCITONIN (PCT) (04/06/20) PROTHROMBIN TIME (03/05/20) PT EVAL MOD COMPLEX 30 MIN (05/30/20) RBC ANTIBODY SCREEN (05/30/20) ROUTINE VENIPUNCTURE (08/09/20) SELF CARE MNGMENT TRAINING (05/30/20) STOOL CULTR AEROBIC BACT EA (04/06/20) SUBSEQUENT HOSPITAL CARE (03/14/20) SUBSEQUENT HOSPITAL CARE (03/14/20) SUBSEQUENT HOSPITAL CARE (03/05/20) SUBSEQUENT HOSPITAL CARE (03/05/20) THER/PROPH/DIAG INJ IV PUSH (10/07/18) THER/PROPH/DIAG IV INF ADDON (03/14/20) THER/PROPH/DIAG IV INF INIT (08/09/20) THERAPEUTIC ACTIVITIES (05/30/20) THERAPEUTIC EXERCISES (05/30/20) TISSUE EXAM BY PATHOLOGIST (05/30/20) TTE W/DOPPLER COMPLETE (05/30/20) TX/PRO/DX INJ NEW DRUG ADDON (03/05/20) TX/PRO/DX INJ SAME DRUG FISHING ROD MECHANIC (03/14/20) TX/PROPH/DG ADDL SEQ IV INF (03/14/20) URINALYSIS AUTO W/SCOPE (08/09/20) URINE CULTURE/COLONY COUNT (03/05/20) US EXAM ABDOM COMPLETE (03/14/20) X-RAY EXAM CHEST 1 VIEW (05/30/20) X-RAY EXAM OF SHOULDER (03/14/20) (1) Atrial fibrillation with RVR SNOMED Code(s): 102601910658801 Code(s): I48.91 - UNSPECIFIED ATRIAL FIBRILLATION Current Visit: No Problem List Initiated/Reviewed/Updated: Yes My Orders Last 24 Hours: My Active Orders 12/25/20 14:00 Acetaminophen [Tylenol Extra Strength] 1,000 mg PO TID 12/26/20 14:00 Furosemide [Lasix] 20 mg IVPUSH Q8H 12/27/20 07:00 OT Evaluation and Treatment [CONS] Routine PT Evaluation and Treatment [CONS] Routine Plan: ASSESSMENT AND PLAN - 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 A little bit confused but otherwise doing fairly well. Mild to moderate volume overload. -Limit IV fluids as able -Furosemide every 8 hours for 3 doses and reassess tomorrow -Postoperative care as per the surgical team Hyperactive delirium-mental status has waxed and waned throughout the hospital stay. Better with less narcotics stopping scopolamine and starting Depakote. -Scheduled acetaminophen for pain control -Melatonin at bedtime -Trial of low-dose Depakote Rapid atrial fibrillation-rate control has improved with oral medications. -Metoprolol 25 mg every 12 hours -Propafenone 3 times a day -Additional rate control if indicated -Continue cardiac monitoring -We will need to reassess apixaban prior to hospital discharge Postoperative hypotension-probably related to third spacing. He has been weaned off of the norepinephrine and blood pressure has remained stable. Anemia due to blood loss-after today he will have had 5 units of blood total, 2 during surgery and 3 after surgery. Hemoglobin stable. -I would recommend a transfusion threshold of the hemoglobin less than 8 Acute kidney injury-creatinine has trended down with volume resuscitation after surgery. History of congestive heart failure-patient has mild evidence for volume overload. Furosemide ordered again today. Maintenance issues - -DVT prophylaxis-mechanical -GI prophylaxis-PPI -Nutrition-full liquids -Gan catheter-necessary for strict intake and output monitoring, reassess daily Disposition-I would anticipate discharge to the skilled nursing for subacute rehab after the hospital stay. Antonio Washington M.D.
[2020-12-26] MEDS: Furosemide 20 MG/2 ML VIAL IVPUSH SCH ×2 (14:28→22:24)
[2020-12-26] MEDS: Pantoprazole 40 MG Tab.CR PO SCH (15:30)
[2020-12-26] MEDS: Melatonin 3 MG Tab PO SCH (20:42)
[2020-12-26] MEDS: Tamsulosin 0.4 MG Cap.ER PO SCH (20:43)
[2020-12-27] MEDS: Magnesium Sulfate/Water 2 GM/50 ML BAG IV SCH ×4 (02:24→20:13)
[2020-12-27] MEDS: Furosemide 20 MG/2 ML VIAL IVPUSH SCH ×3 (06:15→20:12)
[2020-12-27] MEDS ORDERED: Central Total Parenteral Nutrition Bag SCH (07:00)
--- NOTE | 2020-12-27 07:49 | PN ---
DATE OF SERVICE: 12/27/2020 SUBJECTIVE: Arnie has been alert. Vital signs have been stable. Oral intake 1880 and urine output 3625. His DOTTIE drains put out 90 and 150 of a serosanguineous drainage. Colostomy has been emptied 3 times of liquid stool and he has had a total of 450. LABORATORY DATA: Hemoglobin 9.5. BNP is 3638. Albumin is 2.1. REVIEW OF SYSTEMS: Remainder of review of systems negative for any pertinent positives and negatives. OBJECTIVE: GENERAL: Arnie Infante is a pleasant 89-year-old male. He is alert and orientated. VITAL SIGNS: TPR is 96, 80, 16, blood pressure 135/63. HEENT: Negative. NECK: Supple. HEART: Regular rate and rhythm. LUNGS: Clear but decreased breath sounds. ABDOMEN: DOTTIE drains as above. Abdominal binder is on. Ileostomy intact. EXTREMITIES: Trace peripheral edema. ASSESSMENT: Exploratory laparotomy with: 1. Anterior perineal repair. 2. Mobilization of omentum, intraperitoneal mesh to displace small bowel from pelvis. POSTOPERATIVE DIAGNOSES: 1. Low rectal adenocarcinoma, status neoadjuvant chemoradiation treatment. Date of procedure: 12/21/2020. Surgeon: Mohsen Duggan MD. 2. Delayed primary closure. Date of procedure: 12/23/2020. Surgeon: Mohsen Duggan MD. 3. Atrial fibrillation with rapid ventricular response. PLAN: 1. Lasix 20 mg IV b.i.d. 2. Albumin 25 g IV daily. 3. Discontinue Gan. 4. Discontinue TPN. 5. Discontinue both DOTTIE drains. 6. Check CBC, CMP, phos, and BNP in a.m. 7. Consult discharge planning for home health. The patient is requesting home health care and discharge tentatively planned for 12/29/2020. 8. We will evaluate p.r.n. or in a.m. Tisha Crocker PA-C /[id number]
[2020-12-27] MEDS: Divalproex Sodium Delayed-Release 125 MG Cap.Sprink PO SCH ×2 (08:42→17:06)
[2020-12-27] MEDS: Docusate Sodium 100 MG Cap PO SCH ×2 (08:44→20:08)
[2020-12-27] MEDS: Bisacodyl 5 MG Tab PO SCH ×2 (08:45→20:08)
[2020-12-27] MEDS: Aspirin 81 MG Tab.EC PO SCH (08:45)
[2020-12-27] MEDS: atorvaSTATin 10 MG Tab PO SCH (08:46)
[2020-12-27] MEDS: Metoprolol Tartrate 25 MG Tab PO SCH ×2 (08:47→20:27)
[2020-12-27] MEDS: Acetaminophen 500 MG Tab PO SCH ×3 (08:55→20:11)
--- NOTE | 2020-12-27 14:19 | OR ---
DATE OF PROCEDURE: 12/21/2020 SURGEON: Mohsen Duggan MD PREOPERATIVE DIAGNOSIS: Low rectal adenocarcinoma. POSTOPERATIVE DIAGNOSIS: Low rectal adenocarcinoma. PROCEDURE PERFORMED: Exploratory laparotomy with: 1. Abdominoperoneal resection (44059). 2. Mobilization of omentum and placement of Interceed mesh to displace small bowel from pelvis (10923). ANESTHESIA: General plus epidural. INDICATION FOR PROCEDURE: This is an 89-year-old male status post neoadjuvant treatment for very low rectal adenocarcinoma. Examination last week showed the patient to have persistent abdominal wall disease quite low which would necessitate abdominoperoneal resection. More recently, he has undergone aortic valve replacement which resulted in significant improvement in his cardiac function with ejection fraction of 65%, and there also appears to be good collapsibility of the vena cava indicating lack of significant right- sided failure as well. The patient does have continued issues with tachyarrhythmias related to his atrial fibrillation. Plan is to proceed with exploratory laparotomy and abdominoperoneal resection. The patient is aware this will result in a permanent colostomy and otherwise potential risks including bleeding, infection, local or distant tumor recurrence likely needing additional treatment postoperatively as well as the possibility of cardiopulmonary, septic, or hemorrhagic complications leading to were all discussed, and the patient wishes to proceed. DETAILS OF PROCEDURE: The patient was taken to the operating room, and after general endotracheal anesthesia was induced, a Gan catheter was inserted, and he was placed into a lithotomy position. An epidural catheter had been placed and epidural anesthetic induced at a point prior to the initial incision. The abdomen and perianal areas were then prepped and draped. A midline incision which extended from roughly 3 fingerbreadths above the umbilicus to the pubis was made and carried down to full-thickness abdominal wall. General exploration was undertaken. There were no signs of any tumor apart from the primary site, the latter was readily palpable in the depths of the pelvis. Otherwise, there was no significant lymphadenopathy in the infra hemorrhoidal chain or iliac vessels nor lymphadenopathy. There were no signs of any intraperitoneal disease, and no liver or other visceral metastases were evident. At this point, the junction of the sigmoid colon and rectum was divided with the MELITA stapler. The peritoneal reflection of the rectum on each side was then divided. This allowed division of those vessels behind the rectum and establishing a plane in the presacral space and it was eventually dissected down to the level of the pelvic floor. The lateral vessels coming into the rectum were then sequentially divided with xander. The area of problematic resection was anteriorly where the tumor or tumor remnants were quite adherent to the prostate. This was eventually dissected off flush with what appeared to be maintaining adequate mesorectum. The Gna catheter was able to be palpated throughout the area of dissection, and the urethra was not impinged on. This eventually confirmed at the conclusion of that dissection. The peritoneal dissection was initiated with a vertically oriented transverse incision, carried down through the skin, subcutaneous tissue, and musculature. Eventually, the specimen concerning the abdominoperitoneal resection was removed without breaking into the lumen of the bowel at any point during the dissection. The ureters were then traced on each side and found to be intact. Hemostasis was obtained within the pelvis with some electrocautery, and this area was irrigated with meropenem and Zyvox-containing saline solution. The peritoneal closure was accomplished with 2 layers of muscular closure with 0 Vicryl stitch, the subcutaneous tissue with some 4-0 Vicryl stitch, and the skin with xander. The pelvic floor was then covered with some fibrin sealant and once again irrigated with antibiotic-containing saline solution. Two Miguel-Carlos drains were then placed, one on each side of the lower abdomen down into the pelvis. The colostomy which had been marked out somewhat to the left and superior to the umbilicus was then accomplished with excision of disk of skin and subcutaneous tissue. The U-shaped incision was then made on the rectus sheath and the peritoneum entered while the rectus muscle was being spread. The sigmoid colon and descending colon had been further mobilized from the lateral peritoneal reflection and brought out through the colostomy opening. Some additional sigmoid colon and its nodes were then resected, and these were marked as final proximal margin. Following this, the omentum and some Interceed mesh was then placed down into the pelvis to displace the small bowel under that. In addition the patient might need some additional radiation treatment subsequently. The midline peritoneum was approximated with #2 Vicryl stitch as was the anterior fascia. Skin and subcutaneous tissue were felt to be high risk for wound infection if these were closed primarily and these were left open. The point where the colostomy came down through the fascia was reinforced with some 3-0 Vicryl stitch, and the colostomy was matured using running 3-0 Vicryl stitch everting the colostomy. The blood supply to the colostomy appeared to be satisfactory and the colostomy appliance applied. The patient was taken to the recovery room in satisfactory condition. There were no evident complications. Physician clinical trial assistant, Tisha Crocker, played an essential role in assisting in this case, helping to position the patient, retract structures as needed, as well as suturing and cutting sutures when indicated. Her presence improved the patient's safety and decreased the operative time. Mohsen Duggan MD /[id number]
--- NOTE | 2020-12-27 16:25 | PCM.CONSN ---
- General Info Date of Service: 12/27/20 Subjective Update: Mr. Infante has been stable since yesterday. Appetite and overall energy level seem to be slowly improving. He is less confused than he had been through the weekend with no agitation. Functional Status: Reports: Tolerating Diet, Urinating - Review of Systems General: Reports: Weakness, Fatigue. Denies: Fever, Chills Pulmonary: Reports: No Symptoms Cardiovascular: Reports: No Symptoms Gastrointestinal: Reports: Abdominal Pain, Flatus. Denies: Difficulty Swallowing, Hematochezia, Melena, Nausea, Vomiting Genitourinary: Reports: No Symptoms - Patient Data Vitals - Most Recent: Last Vital Signs Temp 96.2 F L 12/27/20 13:54 Pulse 84 12/27/20 14:14 Resp 20 12/27/20 13:54 BP 125/97 H 12/27/20 13:54 Pulse Ox 97 12/27/20 13:54 Weight - Most Recent: 202 lb I&O - Last 24 Hours: Intake & Output 12/27/20 12/27/20 12/27/20 06:59 14:59 22:59 Intake Total 933 1416 Output Total 2425 1250 Balance -1492 166 Lab Results Last 24 Hours: Laboratory Results - last 24 hr 12/27/20 12/27/20 Range/Units 04:15 04:15 WBC 8.8 (4.5-11.0) K/uL RBC 3.57 L (4.30-5.90) M/uL Hgb 9.5 L (12.0-15.0) g/dL Hct 31.8 L (40.0-54.0) % MCV 89 (80-98) fL MCH 27 (27-31) pg MCHC 30 L (32-36) % Plt Count 150 (150-400) K/uL Sodium 146 (140-148) mmol/L Potassium 3.8 (3.6-5.2) mmol/L Chloride 110 H (100-108) mmol/L Carbon Dioxide 28 (21-32) mmol/L Anion Gap 11.8 (5.0-14.0) mmol/L BUN 39 H (7-18) mg/dL Creatinine 1.1 (0.8-1.3) mg/dL Est Cr Clr Drug Dosing 47.93 mL/min Estimated GFR (MDRD) > 60 (>60) Glucose 110 H (74-106) mg/dL Calcium 8.6 (8.5-10.1) mg/dL Phosphorus 3.8 (2.5-4.9) mg/dL Magnesium 3.1 H (1.8-2.4) mg/dL Total Bilirubin 0.5 (0.2-1.0) mg/dL AST 23 (15-37) U/L ALT 37 (12-78) U/L Alkaline Phosphatase 58 (46-116) U/L NT-Pro-B Natriuret Pep 3638 H (5-450) pg/mL Total Protein 4.5 L (6.4-8.2) g/dL Albumin 2.1 L (3.4-5.0) g/dL Globulin 2.4 (2.3-3.5) g/dL Albumin/Globulin Ratio 0.9 L (1.2-2.2) Med Orders - Current: Current Medications Acetaminophen (Acetaminophen 500 Mg Tab) 1,000 mg PO TID [facility] Last Admin: 12/27/20 14:14 Dose: 1,000 mg Documented by: Aspirin (Aspirin 81 Mg Tab.Ec) 81 mg PO DAILY [facility] Last Admin: 12/27/20 08:45 Dose: 81 mg Documented by: Atorvastatin Calcium (Atorvastatin 10 Mg Tab) 10 mg PO DAILY [facility] Last Admin: 12/27/20 08:46 Dose: 10 mg Documented by: Bisacodyl (Bisacodyl 5 Mg Tab) 10 mg PO BID [facility] Last Admin: 12/27/20 08:45 Dose: 10 mg Documented by: Diphenhydramine HCl (Diphenhydramine 25 Mg Cap) 25 mg PO Q4H PRN PRN Reason: Itching Last Admin: 12/25/20 16:21 Dose: 25 mg Documented by: Divalproex Sodium (Divalproex Sodium Delayed-Release 125 Mg Cap.Sprink) 125 mg PO BIDMEALS [facility] Last Admin: 12/27/20 08:42 Dose: 125 mg Documented by: Docusate Sodium (Docusate Sodium 100 Mg Cap) 100 mg PO BID [facility] Last Admin: 12/27/20 08:44 Dose: 100 mg Documented by: Furosemide (Furosemide 20 Mg/2 Ml Vial) 20 mg IVPUSH BID [facility] Stop: 12/27/20 23:59 Last Admin: 12/27/20 09:39 Dose: 20 mg Documented by: Haloperidol Lactate (Haloperidol Lactate 5 Mg/Ml Sdv) 5 mg IVPUSH Q2H PRN PRN Reason: Agitation Last Admin: 12/25/20 14:56 Dose: 5 mg Documented by: Heparin Sodium (Porcine) (Heparin Sodium 100 Units/Ml 5 Ml Syringe) 500 units FLUSH ASDIRECTED PRN PRN Reason: IV Use Last Admin: 12/26/20 16:51 Dose: 500 units Documented by: Hydroxyzine HCl (Hydroxyzine Hcl 100 Mg/2 Ml Sdv) 0 mg IM Q4H PRN PRN Reason: PAIN Last Admin: 12/25/20 04:28 Dose: 100 mg Documented by: Dextrose/Lactated Ringer's (Dextrose 5%-Lactated Ringers) 1,000 mls @ 25 mls/hr IV ASDIRECTED [facility] Last Admin: 12/23/20 17:44 Dose: 25 mls/hr Documented by: Magnesium Sulfate (Magnesium Sulfate In Water 2 Gm/50 Ml) 2 gm in 50 mls @ 25 mls/hr IV Q6H [facility] Stop: 12/29/20 04:29 Last Admin: 12/27/20 14:14 Dose: 25 mls/hr Documented by: Albumin Human (Albumin 25%) 25 gm in 100 mls @ 25 mls/hr IV DAILY [facility] Last Admin: 12/27/20 09:39 Dose: 25 mls/hr Documented by: Melatonin (Melatonin 3 Mg Tab) 9 mg PO BEDTIME [facility] Last Admin: 12/26/20 20:42 Dose: 9 mg Documented by: Metoprolol Tartrate (Metoprolol Tartrate 25 Mg Tab) 25 mg PO Q12H [facility] Last Admin: 12/27/20 08:47 Dose: 25 mg Documented by: Ondansetron HCl (Ondansetron 4 Mg/2 Ml Sdv) 4 mg IVPUSH Q4H PRN PRN Reason: Nausea Pantoprazole Sodium (Pantoprazole 40 Mg Tab.Cr) 40 mg PO ACDINNER [facility] Last Admin: 12/26/20 15:30 Dose: 40 mg Documented by: Propafenone HCl (Propafenone 150 Mg Tab) 225 mg PO TID [facility] Last Admin: 12/27/20 14:14 Dose: 225 mg Documented by: Tamsulosin HCl (Tamsulosin 0.4 Mg Cap.Er) 0.4 mg PO BEDTIME [facility] Last Admin: 12/26/20 20:43 Dose: 0.4 mg Documented by: Tramadol HCl (Tramadol 50 Mg Tab) 50 mg PO Q6H PRN PRN Reason: Pain Last Admin: 12/25/20 16:21 Dose: 50 mg Documented by: Discontinued Medications Acetaminophen (Acetaminophen 500 Mg Tab) 1,000 mg PO ONETIME ONE Stop: 12/21/20 05:46 Last Admin: 12/21/20 06:20 Dose: 1,000 mg Documented by: Alvimopan (Alvimopan 12 Mg Capsule) 12 mg PO ONETIME ONE Stop: 12/21/20 06:37 Last Admin: 12/21/20 07:02 Dose: 12 mg Documented by: Alvimopan (Alvimopan 12 Mg Capsule) 12 mg PO Q12H [facility] Stop: 12/25/20 20:01 Last Admin: 12/25/20 20:55 Dose: Not Given Documented by: Bupivacaine HCl (Bupivacaine 0.5% 50 Ml Mdv) Confirm Administered Dose 50 ml .ROUTE .STK-MED ONE Stop: 12/21/20 06:40 Bupivacaine HCl (Bupivacaine 0.5% 50 Ml Mdv) Confirm Administered Dose 50 ml .ROUTE .STK-MED ONE Stop: 12/23/20 06:36 Last Admin: 12/23/20 09:57 Dose: 17.5 ml Documented by: Cefoxitin Sodium (Cefoxitin 2 Gm Vial) Confirm Administered Dose 2 gm .ROUTE .STK-MED ONE Stop: 12/21/20 12:39 Meropenem 500 mg/ Sodium (Chloride 750 ml) 0 mg .XX ONETIME ONE Stop: 12/21/20 07:16 Last Admin: 12/21/20 07:10 Dose: 700 cont Documented by: Ropivacaine 45 ml/Dexamethasone 8 mg/Epinephrine HCl 0.4 mg/ Sodium Chloride 32.6 ml 0 ml NERVRT ASDIRECTED [facility] Last Admin: 12/23/20 08:36 Dose: 80 syringe Documented by: Dexamethasone (Dexamethasone 4 Mg/Ml Sdv) Confirm Administered Dose 4 mg .ROUTE .STK-MED ONE Stop: 12/21/20 07:13 Digoxin (Digoxin 500 Mcg/2 Ml Amp) 125 mcg IVPUSH ONETIME ONE Stop: 12/21/20 17:16 Last Admin: 12/21/20 17:15 Dose: 125 mcg Documented by: Digoxin (Digoxin 500 Mcg/2 Ml Amp) Confirm Administered Dose 500 mcg .ROUTE .STK-MED ONE Stop: 12/21/20 17:14 Last Admin: 12/21/20 17:27 Dose: Not Given Documented by: Fentanyl (Fentanyl 250 Mcg/5 Ml Sdv) Confirm Administered Dose 250 mcg .ROUTE .STK-MED ONE Stop: 12/21/20 07:12 Fentanyl (Fentanyl 100 Mcg/2 Ml Sdv) Confirm Administered Dose 100 mcg .ROUTE .STK-MED ONE Stop: 12/21/20 12:20 Fentanyl (Fentanyl 100 Mcg/2 Ml Sdv) Confirm Administered Dose 100 mcg .ROUTE .STK-MED ONE Stop: 12/21/20 14:19 Furosemide (Furosemide 20 Mg/2 Ml Vial) 20 mg IVPUSH ONETIME ONE Stop: 12/23/20 09:31 Last Admin: 12/23/20 10:20 Dose: 20 mg Documented by: Furosemide (Furosemide 20 Mg/2 Ml Vial) 20 mg IVPUSH Q6H [facility] Stop: 12/24/20 14:31 Last Admin: 12/24/20 14:02 Dose: 20 mg Documented by: Furosemide (Furosemide 40 Mg/4 Ml Vial) 40 mg IVPUSH ONETIME ONE Stop: 12/25/20 10:55 Last Admin: 12/25/20 11:13 Dose: 40 mg Documented by: Furosemide (Furosemide 20 Mg/2 Ml Vial) 20 mg IVPUSH Q8H [facility] Stop: 12/27/20 06:01 Last Admin: 12/27/20 06:15 Dose: 20 mg Documented by: Glycopyrrolate (Glycopyrrolate 0.2 Mg/Ml 5 Ml Mdv) Confirm Administered Dose 1 mg .ROUTE .STK-MED ONE Stop: 12/21/20 07:13 Haloperidol Lactate (Haloperidol Lactate 5 Mg/Ml Sdv) 2.5 mg IVPUSH Q4H PRN PRN Reason: Agitation Last Admin: 12/24/20 22:57 Dose: 2.5 mg Documented by: Heparin Sodium (Porcine) (Heparin Sodium 100 Units/Ml 5 Ml Syringe) Confirm Administered Dose 500 units .ROUTE .STK-MED ONE Stop: 12/23/20 06:56 Last Admin: 12/23/20 09:58 Dose: 500 units Documented by: Hydromorphone HCl (Hydromorphone/Normal Saline 15 Mg/30 Ml [employer]) 15 mg IV ASDIRECTED PRN; Protocol PRN Reason: 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 Last Admin: 12/23/20 09:50 Dose: 15 mg Documented by: Dextrose/Lactated Ringer's (Dextrose 5%-Lactated Ringers) 1,000 mls @ 100 mls/hr IV ASDIRECTED [facility] Last Admin: 12/21/20 06:20 Dose: 100 mls/hr Documented by: Cefoxitin Sodium 2 gm/ Sodium (Chloride) 50 mls @ 100 mls/hr IV ONETIME ONE Stop: 12/21/20 08:14 Last Admin: 12/21/20 07:52 Dose: 100 mls/hr Documented by: Linezolid (Zyvox) Confirm Administered Dose 300 mls @ as directed .ROUTE .STK- MED ONE Stop: 12/21/20 06:40 Fentanyl 2,500 mcg/ Sodium (Chloride) 250 mls @ 0 mls/hr EPIDUR TITRATE [facility]; Protocol Last Admin: 12/23/20 02:29 Dose: 8 mls/hr, 8 mls/hr Documented by: Sodium Chloride (Normal Saline) Confirm Administered Dose 10 mls @ as directed .ROUTE .STK-MED ONE Stop: 12/21/20 07:15 Sodium Chloride (Normal Saline) Confirm Administered Dose 10 mls @ as directed .ROUTE .STK-MED ONE Stop: 12/21/20 08:35 Lactated Ringer's (Ringers, Lactated) Confirm Administered Dose 1,000 mls @ as directed .ROUTE .STK-MED ONE Stop: 12/21/20 09:49 Linezolid (Zyvox) Confirm Administered Dose 300 mls @ as directed .ROUTE .STK- MED ONE Stop: 12/21/20 09:50 Sodium Chloride (Normal Saline) Confirm Administered Dose 10 mls @ as directed .ROUTE .STK-MED ONE Stop: 12/21/20 12:39 Lactated Ringer's (Ringers, Lactated) Confirm Administered Dose 1,000 mls @ as directed .ROUTE .STK-MED ONE Stop: 12/21/20 13:24 Dextrose/Lactated Ringer's (Dextrose 5%-Lactated Ringers) 1,000 mls @ 75 mls/hr IV ASDIRECTED [facility] Last Admin: 12/22/20 20:01 Dose: 100 mls/hr Documented by: Lactated Ringer's (Ringers, Lactated) 1,000 mls @ 100 mls/hr IV ASDIRECTED [facility] Last Admin: 12/22/20 08:31 Dose: 100 mls/hr Documented by: Cefoxitin Sodium 2 gm/ Sodium (Chloride) 50 mls @ 100 mls/hr IV Q6H [facility] Stop: 12/23/20 10:29 Last Admin: 12/23/20 10:28 Dose: 100 mls/hr Documented by: Lactated Ringer's (Ringers, Lactated) 500 mls @ 999 mls/hr IV ASDIRECTED [facility] Stop: 12/21/20 17:46 Last Admin: 12/21/20 17:10 Dose: 999 mls/hr Documented by: Lactated Ringer's (Ringers, Lactated) 500 mls @ 999 mls/hr IV ASDIRECTED [facility] Stop: 12/21/20 18:31 Last Admin: 12/21/20 18:00 Dose: 999 mls/hr Documented by: Norepinephrine Bitartrate 8 mg (/ Dextrose/Water) 258 mls @ 3.87 mls/hr IV TITRATE [facility]; Protocol Last Infusion: 12/22/20 23:28 Dose: 2 mcg/min, 3.87 mls/hr Documented by: Magnesium Sulfate 2 gm/ Premix 50 mls @ 25 mls/hr IV Q6H [facility] Stop: 12/22/20 02:14 Last Admin: 12/21/20 23:50 Dose: 25 mls/hr Documented by: Esmolol HCl (Esmolol Hcl In Sterile Water 2,500 Mg/250 Ml) 250 mls @ 27.488 mls/hr IV TITRATE [facility]; Protocol Last Admin: 12/22/20 03:23 Dose: 300 mcg/kg/min, 164.927 mls/hr Documented by: Diltiazem HCl 100 mg/ Sodium (Chloride) 100 mls @ 5 mls/hr IV TITRATE [facility]; Protocol Last Titration: 12/22/20 09:58 Dose: 13 mg/hr, 13 mls/hr Documented by: Lactated Ringer's (Ringers, Lactated) Confirm Administered Dose 1,000 mls @ as directed .ROUTE .[facility] ONE Stop: 12/23/20 07:39 Albumin Human (Albumin 25%) 25 gm in 100 mls @ 25 mls/hr IV Q24H [facility] Stop: 12/25/20 13:59 Last Admin: 12/25/20 10:47 Dose: 25 mls/hr Documented by: Potassium Phosphate 22.5 mmole (/ Sodium Chloride) 107.5 mls @ 27 mls/hr IV Q4H [facility] Stop: 12/23/20 18:59 Last Admin: 12/23/20 15:06 Dose: 27 mls/hr Documented by: Multivitamins/Minerals 10 ml/Zinc 1 ml/ Amino Ac/Electrol/Dextrose/Calcium 1,011 mls @ 82 mls/hr IV .BY DURATION [facility] Stop: 12/24/20 14:30 Last Admin: 12/23/20 13:46 Dose: 82 mls/hr Documented by: Amino Ac/Electrol/Dextrose/Calcium (Clinimix E 5/15) 1,000 mls @ 82 mls/hr IV .BY DURATION [facility] Stop: 12/24/20 14:30 Last Admin: 12/24/20 01:59 Dose: 82 mls/hr Documented by: Potassium Phosphate 22.5 mmole (/ Sodium Chloride) 107.5 mls @ 27 mls/hr IV Q4H [facility] Stop: 12/24/20 17:59 Last Admin: 12/24/20 15:27 Dose: 27 mls/hr Documented by: Multivitamins/Minerals 10 ml/Zinc 1 ml/ Amino Ac/Electrol/Dextrose/Calcium 1,011 mls @ 60 mls/hr IV .BY DURATION [facility] Last Admin: 12/26/20 02:54 Dose: 60 mls/hr Documented by: Amino Ac/Electrol/Dextrose/Calcium (Clinimix E 5/15) 1,000 mls @ 60 mls/hr IV .BY DURATION [facility] Last Admin: 12/26/20 20:04 Dose: 60 mls/hr Documented by: Potassium Phosphate 22.5 mmole (/ Sodium Chloride) 107.5 mls @ 27 mls/hr IV Q4H [facility] Stop: 12/26/20 17:59 Last Admin: 12/26/20 13:24 Dose: 27 mls/hr Documented by: Lidocaine/Epinephrine (Lidocaine 1% With Epinephrine 1:100,000 50 Ml Mdv) Confirm Administered Dose 50 ml .ROUTE .STK-MED ONE Stop: 12/21/20 06:40 Lidocaine/Epinephrine (Lidocaine 1% With Epinephrine 1:100,000 50 Ml Mdv) Confirm Administered Dose 50 ml .ROUTE .STK-MED ONE Stop: 12/23/20 06:36 Last Admin: 12/23/20 09:58 Dose: 17.5 ml Documented by: Linezolid (Linezolid 600 Mg/300 Ml Bag) 1,200 mg IRR .STK-MED ONE Stop: 12/21/20 09:59 Last Admin: 12/21/20 09:58 Dose: 1,200 mg Documented by: Meropenem (Meropenem 500 Mg Sdv) Confirm Administered Dose 500 mg .ROUTE .STK- MED ONE Stop: 12/21/20 06:40 Last Admin: 12/21/20 09:58 Dose: 1,000 mg Documented by: Meropenem (Meropenem 500 Mg Sdv) Confirm Administered Dose 500 mg .ROUTE .STK- MED ONE Stop: 12/21/20 09:50 Meropenem (Meropenem 500 Mg Sdv) Confirm Administered Dose 500 mg .ROUTE .ST- MED ONE Stop: 12/23/20 06:36 Last Admin: 12/23/20 09:59 Dose: 500 mg Documented by: Metoprolol Tartrate (Metoprolol Tartrate 25 Mg Tab) 12.5 mg PO BID [facility] Last Admin: 12/21/20 20:29 Dose: Not Given Documented by: Metoprolol Tartrate (Metoprolol Tartrate 5 Mg/5 Ml Sdv) 5 mg IVPUSH ONETIME ONE Stop: 12/21/20 17:01 Last Admin: 12/22/20 20:18 Dose: Not Given Documented by: Metoprolol Tartrate (Metoprolol Tartrate 5 Mg/5 Ml Sdv) 5 mg IVPUSH Q4H [facility] Last Admin: 12/21/20 19:37 Dose: 5 mg Documented by: Midazolam HCl (Midazolam 1 Mg/Ml 2 Ml Sdv) 1 mg IVPUSH ONETIME ONE Stop: 12/23/20 05:54 Last Admin: 12/23/20 06:10 Dose: 1 mg Documented by: Midazolam HCl (Midazolam 1 Mg/Ml 2 Ml Sdv) 1 mg IV Q4H PRN PRN Reason: RESTLESSNESS Naloxone HCl (Naloxone 0.4 Mg/Ml Sdv) 0.1 mg IVPUSH Q5M PRN PRN Reason: RESP RATE LESS THAN 6/MINUTE Naloxone HCl (Naloxone 0.4 Mg/Ml Sdv) 0.4 mg IVPUSH ONETIME PRN PRN Reason: Itching Last Admin: 12/22/20 20:00 Dose: 0.4 mg Documented by: Naloxone HCl (Naloxone 0.4 Mg/Ml Sdv) 0.1 mg IV ASDIRECTED PRN PRN Reason: decreased respiratory rate Neostigmine Methylsulfate (Neostigmine Methylsulfate 1 Mg/Ml 5 Ml Syringe) Confirm Administered Dose 5 mg .ROUTE .STK-MED ONE Stop: 12/21/20 07:13 Scopolamine Patch (Check) 1 each TOP DAILY [facility] Last Admin: 12/25/20 11:58 Dose: Not Given Documented by: Non-Formulary Medication (Central Total Parenteral Nutrition Bag) 1,000 ml .XX .Continue Order [facility] Stop: 12/26/20 12:00 Non-Formulary Medication (Central Total Parenteral Nutrition Bag) 1,000 ml .XX .Continue Order [facility] Stop: 12/27/20 09:00 Ondansetron HCl (Ondansetron 4 Mg/2 Ml Sdv) Confirm Administered Dose 4 mg .ROUTE .STK-MED ONE Stop: 12/21/20 07:13 Pantoprazole Sodium (Pantoprazole 40 Mg Vial) 40 mg IV Q24H [facility] Last Admin: 12/23/20 15:13 Dose: 40 mg Documented by: Potassium Chloride (Potassium Chloride 20 Meq Tab.Er) 40 meq PO ONETIME ONE Stop: 12/26/20 06:58 Last Admin: 12/26/20 09:05 Dose: 40 meq Documented by: Propafenone HCl (Propafenone 150 Mg Tab) 225 mg PO DAILY [facility] Last Admin: 12/22/20 08:41 Dose: Not Given Documented by: Propofol (Propofol 200 Mg/20 Ml Sdv) Confirm Administered Dose 200 mg .ROUTE .ST K-MED ONE Stop: 12/21/20 07:13 Propofol (Propofol 200 Mg/20 Ml Sdv) Confirm Administered Dose 200 mg .ROUTE .STK-MED ONE Stop: 12/23/20 07:10 Propofol (Propofol 200 Mg/20 Ml Sdv) Confirm Administered Dose 200 mg .ROUTE .STK-MED ONE Stop: 12/23/20 08:05 Rocuronium [place] (Rocuronium 50 Mg/5 Ml Vial) Confirm Administered Dose 50 mg .ROUTE .STK-MED ONE Stop: 12/21/20 07:13 Rocuronium [place] (Rocuronium 50 Mg/5 Ml Vial) Confirm Administered Dose 50 mg .ROUTE .STK-MED ONE Stop: 12/21/20 09:03 Rocuronium [place] (Rocuronium 50 Mg/5 Ml Vial) Confirm Administered Dose 50 mg .ROUTE .STK-MED ONE Stop: 12/21/20 12:11 Scopolamine (Scopolamine 1.5 Mg Transdermal Patch) Confirm Administered Dose 1.5 mg .ROUTE .STK-MED ONE Stop: 12/21/20 08:29 Scopolamine (Scopolamine 1.5 Mg Transdermal Patch) 1.5 mg TOP Q72H [facility] Succinylcholine Chloride (Succinylcholine 200 Mg/10 Ml Mdv) Confirm Administered Dose 200 mg .ROUTE .ST-MED ONE Stop: 12/21/20 07:13 - Exam Quality Assessment: DVT Prophylaxis Central Line Total Time: 4Days 2Hours Urinary Catheter Total Time: 6Days 1Hours General: Alert, Cooperative, Mild Distress Lungs: Clear to Auscultation, Normal Respiratory Effort, Decreased Breath Sounds Cardiovascular: Regular Rate, Regular Rhythm, No Murmurs GI/Abdominal Exam: Soft, Non-Tender, No Organomegaly, No Distention Extremities: Non-Tender, No Pedal Edema Sepsis Event Note - Evaluation Sepsis Screening Result: No Definite Risk - Focused Exam Vital Signs: Vital Signs Temp Pulse Pulse Resp BP BP BP 12/27/20 14:14 84 12/27/20 13:54 96.2 F L 84 20 125/97 H 12/27/20 12:24 96.0 F L 63 22 H 123/96 H 12/27/20 08:54 88 12/27/20 08:47 88 147/59 H 12/27/20 08:00 95.8 F L 12/27/20 07:49 84 24 H 129/61 Pulse Ox 12/27/20 14:14 12/27/20 13:54 97 12/27/20 12:24 96 12/27/20 08:54 12/27/20 08:47 12/27/20 08:00 12/27/20 07:49 96 Consult PN Assessment/Plan Procedures: Procedures AGENT NOS ASSAY W/OPTIC (04/06/20) AIRWAY INHALATION TREATMENT (05/25/20) ASSAY OF CK (CPK) (03/14/20) ASSAY OF FERRITIN (03/05/20) ASSAY OF LACTIC ACID (05/30/20) ASSAY OF MAGNESIUM (08/09/20) ASSAY OF NATRIURETIC PEPTIDE (05/30/20) ASSAY OF TROPONIN QUANT (08/09/20) BLOOD CULTURE FOR BACTERIA (04/06/20) BLOOD TRANSFUSION SERVICE (03/05/20) BLOOD TYPING SEROLOGIC ABO (05/30/20) BLOOD TYPING SEROLOGIC RH(D) (05/30/20) C DIFF AMPLIFIED PROBE (03/14/20) C-REACTIVE PROTEIN (04/06/20) CARCINOEMBRYONIC ANTIGEN (05/30/20) CARPAL TUNNEL SURGERY (02/18/13) COMPATIBILITY TEST ANTIGLOB (05/30/20) COMPATIBILITY TEST SPIN (05/30/20) COMPLETE CBC AUTOMATED (08/09/20) COMPLETE CBC W/AUTO DIFF WBC (05/30/20) COMPREHEN METABOLIC PANEL (05/30/20) CT ABD & PELV W/CONTRAST (05/30/20) CT ANGIOGRAPHY CHEST (05/28/20) CT THORAX DX C+ (05/30/20) CULTURE SCREEN ONLY (05/30/20) ELECTROCARDIOGRAM REPORT (03/14/20) ELECTROCARDIOGRAM TRACING (05/30/20) EMERGENCY DEPT VISIT (08/09/20) EMERGENCY DEPT VISIT (05/25/20) EMERGENCY DEPT VISIT (05/25/20) EMERGENCY DEPT VISIT (04/06/20) EMERGENCY DEPT VISIT (04/06/20) EMERGENCY DEPT VISIT (10/07/18) EVALUATE SWALLOWING FUNCTION (03/05/20) EXTREMITY STUDY (05/27/20) FIBRIN DEGRADATION QUANT (03/05/20) HEMOGLOBIN (05/30/20) HEPATIC FUNCTION PANEL (03/14/20) HOSPITAL DISCHARGE DAY (03/14/20) HOSPITAL DISCHARGE DAY (03/05/20) HYDRATE IV INFUSION ADD-ON (10/07/18) IMMUNOHISTO ANTB 1ST STAIN (05/30/20) IMMUNOHISTO ANTB ADDL SLIDE (05/30/20) INITIAL HOSPITAL CARE (03/05/20) INSERT TEMP BLADDER CATH (03/14/20) LACTATE (LD) (LDH) ENZYME (03/05/20) LEUKOCYTE ASSESSMENT FECAL (04/06/20) MEASURE BLOOD OXYGEN LEVEL (03/05/20) METABOLIC PANEL TOTAL CA (08/09/20) OCCULT BLD FECES 1-3 TESTS (05/30/20) OCCULT BLOOD FECES (04/06/20) PROCALCITONIN (PCT) (04/06/20) PROTHROMBIN TIME (03/05/20) PT EVAL MOD COMPLEX 30 MIN (05/30/20) RBC ANTIBODY SCREEN (05/30/20) ROUTINE VENIPUNCTURE (08/09/20) SELF CARE MNGMENT TRAINING (05/30/20) STOOL CULTR AEROBIC BACT EA (04/06/20) SUBSEQUENT HOSPITAL CARE (03/14/20) SUBSEQUENT HOSPITAL CARE (03/14/20) SUBSEQUENT HOSPITAL CARE (03/05/20) SUBSEQUENT HOSPITAL CARE (03/05/20) THER/PROPH/DIAG INJ IV PUSH (10/07/18) THER/PROPH/DIAG IV INF ADDON (03/14/20) THER/PROPH/DIAG IV INF INIT (08/09/20) THERAPEUTIC ACTIVITIES (05/30/20) THERAPEUTIC EXERCISES (05/30/20) TISSUE EXAM BY PATHOLOGIST (05/30/20) TTE W/DOPPLER COMPLETE (05/30/20) TX/PRO/DX INJ NEW DRUG ADDON (03/05/20) TX/PRO/DX INJ SAME 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 A little bit confused but otherwise doing fairly well. Mild to moderate volume overload. -Limit IV fluids as able -Furosemide dosing per Dr. Duggan -Postoperative care as per the surgical team Hyperactive delirium-much less confused and agitated over the past 2 days -Scheduled acetaminophen for pain control -Melatonin at bedtime -low-dose Depakote Rapid atrial fibrillation-rate control has improved with oral medications. -Metoprolol 25 mg every 12 hours -Propafenone 3 times a day -Additional rate control if indicated -Continue cardiac monitoring -We will need to reassess apixaban prior to hospital discharge Postoperative hypotension-probably related to third spacing. He has been weaned off of the norepinephrine and blood pressure has remained stable. Anemia due to blood loss-he has had 5 units of blood total, 2 during surgery and 3 after surgery. Hemoglobin stable. -I would recommend a transfusion threshold of the hemoglobin less than 8 Acute kidney injury-creatinine has trended down with volume resuscitation after surgery. History of congestive heart failure-patient has mild evidence for volume overload. Furosemide ordered again today. Maintenance issues - -DVT prophylaxis-mechanical -GI prophylaxis-PPI -Nutrition-full liquids -Gan catheter-necessary for strict intake and output monitoring, reassess daily Disposition-[facility] the hospital stay.
[2020-12-27] MEDS: Pantoprazole 40 MG Tab.CR PO SCH (17:05)
[2020-12-27] MEDS: Tamsulosin 0.4 MG Cap.ER PO SCH (20:09)
[2020-12-27] MEDS: Melatonin 3 MG Tab PO SCH (20:11)
[2020-12-28] MEDS: Magnesium Sulfate/Water 2 GM/50 ML BAG IV SCH ×4 (01:56→20:33)
--- NOTE | 2020-12-28 07:27 | PN ---
DATE OF SERVICE: 12/28/2020 SUBJECTIVE: Arnie's vital signs have been stable. His pain has been controlled. Laboratory results for this morning are still pending. He has no questions or concerns. His oral intake was 1816. Output, he has been incontinent of urine after his Gan was removed yesterday. Ostomy put out 175 mL. OBJECTIVE: GENERAL: Arnie Infante is an 89-year-old male. He is alert and orientated. VITAL SIGNS: TPR 94.9, 74, 20. Blood pressure 94/54. HEENT: Negative. NECK: Supple. HEART: Regular rate and rhythm. LUNGS: Clear. GENITOURINARY: Perineal incision has some serosanguinous drainage and some swelling. Aquacel dressing was removed and to remain off. John intact. 4x4s over former DOTTIE drain sites. Colostomy intact. He has been wearing an abdominal binder. EXTREMITIES: With trace peripheral edema. ASSESSMENT: Exploratory laparotomy with: 1. Anterior perineal repair. 2. Mobilization of omentum, intraperitoneal mesh to displace small bowel from pelvis. POSTOPERATIVE DIAGNOSES: 1. Low rectal adenocarcinoma, status neoadjuvant chemoradiation treatment. Date of procedure: 12/21/2020. Surgeon: Mohsen Duggan MD. 2. Delayed primary closure for open abdominal incision. Date of procedure: 12/23/2020. Surgeon: Mohsen Duggan MD. 3. Atrial fibrillation with rapid ventricular response. PLAN: 1. Place an ABD over perineal incision. Change p.r.n. 2. Aquacel dressing was removed and to leave off. Keep incision clean and dry. 3. Check CBC, CMP, phos, and BNP in a.m. Referral to colostomy nurse to teach colostomy care. Will evaluate p.r.n. or in a.m. Tisha Crocker PA-C /[id number]
[2020-12-28] MEDS: Bisacodyl 5 MG Tab PO SCH ×2 (09:29→20:38)
[2020-12-28] MEDS: Acetaminophen 500 MG Tab PO SCH ×3 (09:32→20:38)
[2020-12-28] MEDS: atorvaSTATin 10 MG Tab PO SCH (09:32)
[2020-12-28] MEDS: Aspirin 81 MG Tab.EC PO SCH (09:33)
[2020-12-28] MEDS: Divalproex Sodium Delayed-Release 125 MG Cap.Sprink PO SCH ×2 (09:33→17:23)
[2020-12-28] MEDS: Docusate Sodium 100 MG Cap PO SCH ×2 (09:59→20:39)
[2020-12-28] MEDS: Metoprolol Tartrate 25 MG Tab PO SCH ×2 (10:04→20:39)
--- NOTE | 2020-12-28 11:13 | PCM.PN ---
- General Info Date of Service: 12/28/20 Subjective Update: Mr. Infante has remained stable since yesterday and continued to show slow improvement. Appetite and overall energy level seem to be improving. Strength is improved he is able to stand and take a few steps with minimal assistance. Functional Status: Reports: Tolerating Diet, Ambulating, Urinating - Review of Systems General: Reports: Weakness, Fatigue. Denies: Fever, Chills Pulmonary: Reports: No Symptoms Cardiovascular: Reports: No Symptoms Gastrointestinal: Reports: Abdominal Pain. Denies: Difficulty Swallowing, Nausea, Vomiting Genitourinary: Reports: No Symptoms - Patient Data Vitals - Most Recent: Last Vital Signs Temp 95.2 F L 12/28/20 10:29 Pulse 87 12/28/20 10:29 Resp 18 12/28/20 10:29 BP 105/36 L 12/28/20 10:29 Pulse Ox 97 12/28/20 10:29 Weight - Most Recent: 202 lb I&O - Last 24 Hours: Intake & Output 12/27/20 12/28/20 12/28/20 22:59 06:59 14:59 Intake Total 576 150 400 Output Total 150 25 Balance 426 125 400 Lab Results Last 24 Hours: Laboratory Results - last 24 hr 12/21/20 12/28/20 12/28/20 Range/Units 06:06 05:25 05:25 WBC 8.7 (4.5-11.0) K/uL RBC 3.49 L (4.30-5.90) M/uL Hgb 9.5 L (12.0-15.0) g/dL Hct 30.7 L (40.0-54.0) % MCV 88 (80-98) fL MCH 27 (27-31) pg MCHC 31 L (32-36) % Plt Count 150 (150-400) K/uL Sodium 142 (140-148) mmol/L Potassium 3.6 (3.6-5.2) mmol/L Chloride 106 (100-108) mmol/L Carbon Dioxide 28 (21-32) mmol/L Anion Gap 8.2 (5.0-14.0) mmol/L BUN 45 H (7-18) mg/dL Creatinine 1.4 H (0.8-1.3) mg/dL Est Cr Clr Drug Dosing 37.66 mL/min Estimated GFR (MDRD) 48 L (>60) Glucose 89 (74-106) mg/dL Calcium 8.4 L (8.5-10.1) mg/dL Phosphorus 3.8 (2.5-4.9) mg/dL Total Bilirubin 0.5 (0.2-1.0) mg/dL AST 22 (15-37) U/L ALT 30 (12-78) U/L Alkaline Phosphatase 61 (46-116) U/L NT-Pro-B Natriuret Pep 3183 H (5-450) pg/mL Total Protein 4.5 L (6.4-8.2) g/dL Albumin 2.4 L (3.4-5.0) g/dL Globulin 2.1 L (2.3-3.5) g/dL Albumin/Globulin Ratio 1.1 L (1.2-2.2) Crossmatch See Detail Med Orders - Current: Current Medications Acetaminophen (Acetaminophen 500 Mg Tab) 1,000 mg PO TID [facility] Last Admin: 12/28/20 09:32 Dose: 1,000 mg Documented by: Aspirin (Aspirin 81 Mg Tab.Ec) 81 mg PO DAILY [facility] Last Admin: 12/28/20 09:33 Dose: 81 mg Documented by: Atorvastatin Calcium (Atorvastatin 10 Mg Tab) 10 mg PO DAILY [facility] Last Admin: 12/28/20 09:32 Dose: 10 mg Documented by: Bisacodyl (Bisacodyl 5 Mg Tab) 10 mg PO BID [facility] Last Admin: 12/28/20 09:29 Dose: 10 mg Documented by: Diphenhydramine HCl (Diphenhydramine 25 Mg Cap) 25 mg PO Q4H PRN PRN Reason: Itching Last Admin: 12/25/20 16:21 Dose: 25 mg Documented by: Divalproex Sodium (Divalproex Sodium Delayed-Release 125 Mg Cap.Sprink) 125 mg PO BIDMEALS [facility] Last Admin: 12/28/20 09:33 Dose: 125 mg Documented by: Docusate Sodium (Docusate Sodium 100 Mg Cap) 100 mg PO BID [facility] Last Admin: 12/28/20 09:59 Dose: 100 mg Documented by: Haloperidol Lactate (Haloperidol Lactate 5 Mg/Ml Sdv) 5 mg IVPUSH Q2H PRN PRN Reason: Agitation Last Admin: 12/25/20 14:56 Dose: 5 mg Documented by: Heparin Sodium (Porcine) (Heparin Sodium 100 Units/Ml 5 Ml Syringe) 500 units FLUSH ASDIRECTED PRN PRN Reason: IV Use Last Admin: 12/28/20 05:31 Dose: 500 units Documented by: Hydroxyzine HCl (Hydroxyzine Hcl 100 Mg/2 Ml Sdv) 0 mg IM Q4H PRN PRN Reason: PAIN Last Admin: 12/25/20 04:28 Dose: 100 mg Documented by: Dextrose/Lactated Ringer's (Dextrose 5%-Lactated Ringers) 1,000 mls @ 25 mls/hr IV ASDIRECTED [facility] Last Admin: 12/23/20 17:44 Dose: 25 mls/hr Documented by: Magnesium Sulfate (Magnesium Sulfate In Water 2 Gm/50 Ml) 2 gm in 50 mls @ 25 mls/hr IV Q6H [facility] Stop: 12/29/20 04:29 Last Admin: 12/28/20 09:39 Dose: 25 mls/hr Documented by: Albumin Human (Albumin 25%) 25 gm in 100 mls @ 25 mls/hr IV DAILY [facility] Last Admin: 12/28/20 09:54 Dose: 25 mls/hr Documented by: Melatonin (Melatonin 3 Mg Tab) 9 mg PO BEDTIME [facility] Last Admin: 12/27/20 20:11 Dose: 9 mg Documented by: Metoprolol Tartrate (Metoprolol Tartrate 25 Mg Tab) 25 mg PO Q12H [facility] Last Admin: 12/28/20 10:04 Dose: 25 mg Documented by: Ondansetron HCl (Ondansetron 4 Mg/2 Ml Sdv) 4 mg IVPUSH Q4H PRN PRN Reason: Nausea Pantoprazole Sodium (Pantoprazole 40 Mg Tab.Cr) 40 mg PO ACDINNER [facility] Last Admin: 12/27/20 17:05 Dose: 40 mg Documented by: Propafenone HCl (Propafenone 150 Mg Tab) 225 mg PO TID [facility] Last Admin: 12/28/20 09:30 Dose: 225 mg Documented by: Tamsulosin HCl (Tamsulosin 0.4 Mg Cap.Er) 0.4 mg PO BEDTIME [facility] Last Admin: 12/27/20 20:09 Dose: 0.4 mg Documented by: Tramadol HCl (Tramadol 50 Mg Tab) 50 mg PO Q6H PRN PRN Reason: Pain Last Admin: 12/25/20 16:21 Dose: 50 mg Documented by: Discontinued Medications Acetaminophen (Acetaminophen 500 Mg Tab) 1,000 mg PO ONETIME ONE Stop: 12/21/20 05:46 Last Admin: 12/21/20 06:20 Dose: 1,000 mg Documented by: Alvimopan (Alvimopan 12 Mg Capsule) 12 mg PO ONETIME ONE Stop: 12/21/20 06:37 Last Admin: 12/21/20 07:02 Dose: 12 mg Documented by: Alvimopan (Alvimopan 12 Mg Capsule) 12 mg PO Q12H [facility] Stop: 12/25/20 20:01 Last Admin: 12/25/20 20:55 Dose: Not Given Documented by: Bupivacaine HCl (Bupivacaine 0.5% 50 Ml Mdv) Confirm Administered Dose 50 ml .ROUTE .STK-MED ONE Stop: 12/21/20 06:40 Bupivacaine HCl (Bupivacaine 0.5% 50 Ml Mdv) Confirm Administered Dose 50 ml .ROUTE .STK-MED ONE Stop: 12/23/20 06:36 Last Admin: 12/23/20 09:57 Dose: 17.5 ml Documented by: Cefoxitin Sodium (Cefoxitin 2 Gm Vial) Confirm Administered Dose 2 gm .ROUTE .STK-MED ONE Stop: 12/21/20 12:39 Meropenem 500 mg/ Sodium (Chloride 750 ml) 0 mg .XX ONETIME ONE Stop: 12/21/20 07:16 Last Admin: 12/21/20 07:10 Dose: 700 cont Documented by: Ropivacaine 45 ml/Dexamethasone 8 mg/Epinephrine HCl 0.4 mg/ Sodium Chloride 32.6 ml 0 ml NERVRT ASDIRECTED [facility] Last Admin: 12/23/20 08:36 Dose: 80 syringe Documented by: Dexamethasone (Dexamethasone 4 Mg/Ml Sdv) Confirm Administered Dose 4 mg .ROUTE .STK-MED ONE Stop: 12/21/20 07:13 Digoxin (Digoxin 500 Mcg/2 Ml Amp) 125 mcg IVPUSH ONETIME ONE Stop: 12/21/20 17:16 Last Admin: 12/21/20 17:15 Dose: 125 mcg Documented by: Digoxin (Digoxin 500 Mcg/2 Ml Amp) Confirm Administered Dose 500 mcg .ROUTE .STK-MED ONE Stop: 12/21/20 17:14 Last Admin: 12/21/20 17:27 Dose: Not Given Documented by: Fentanyl (Fentanyl 250 Mcg/5 Ml Sdv) Confirm Administered Dose 250 mcg .ROUTE .STK-MED ONE Stop: 12/21/20 07:12 Fentanyl (Fentanyl 100 Mcg/2 Ml Sdv) Confirm Administered Dose 100 mcg .ROUTE .STK-MED ONE Stop: 12/21/20 12:20 Fentanyl (Fentanyl 100 Mcg/2 Ml Sdv) Confirm Administered Dose 100 mcg .ROUTE .STK-MED ONE Stop: 12/21/20 14:19 Furosemide (Furosemide 20 Mg/2 Ml Vial) 20 mg IVPUSH ONETIME ONE Stop: 12/23/20 09:31 Last Admin: 12/23/20 10:20 Dose: 20 mg Documented by: Furosemide (Furosemide 20 Mg/2 Ml Vial) 20 mg IVPUSH Q6H [facility] Stop: 12/24/20 14:31 Last Admin: 12/24/20 14:02 Dose: 20 mg Documented by: Furosemide (Furosemide 40 Mg/4 Ml Vial) 40 mg IVPUSH ONETIME ONE Stop: 12/25/20 10:55 Last Admin: 12/25/20 11:13 Dose: 40 mg Documented by: Furosemide (Furosemide 20 Mg/2 Ml Vial) 20 mg IVPUSH Q8H [facility] Stop: 12/27/20 06:01 Last Admin: 12/27/20 06:15 Dose: 20 mg Documented by: Furosemide (Furosemide 20 Mg/2 Ml Vial) 20 mg IVPUSH BID [facility] Stop: 12/27/20 23:59 Last Admin: 12/27/20 20:12 Dose: 20 mg Documented by: Glycopyrrolate (Glycopyrrolate 0.2 Mg/Ml 5 Ml Mdv) Confirm Administered Dose 1 mg .ROUTE .STK-MED ONE Stop: 12/21/20 07:13 Haloperidol Lactate (Haloperidol Lactate 5 Mg/Ml Sdv) 2.5 mg IVPUSH Q4H PRN PRN Reason: Agitation Last Admin: 12/24/20 22:57 Dose: 2.5 mg Documented by: Heparin Sodium (Porcine) (Heparin Sodium 100 Units/Ml 5 Ml Syringe) Confirm Administered Dose 500 units .ROUTE .STK-MED ONE Stop: 12/23/20 06:56 Last Admin: 12/23/20 09:58 Dose: 500 units Documented by: Hydromorphone HCl (Hydromorphone/Normal Saline 15 Mg/30 Ml Welfare Visitor) 15 mg IV ASDIRECTED PRN; Protocol PRN Reason: DENTAL RESIDENT PAIN CONTROL Last Admin: 12/23/20 09:50 Dose: 15 mg Documented by: Dextrose/Lactated Ringer's (Dextrose 5%-Lactated Ringers) 1,000 mls @ 100 mls/hr IV ASDIRECTED [facility] Last Admin: 12/21/20 06:20 Dose: 100 mls/hr Documented by: Cefoxitin Sodium 2 gm/ Sodium (Chloride) 50 mls @ 100 mls/hr IV ONETIME ONE Stop: 12/21/20 08:14 Last Admin: 12/21/20 07:52 Dose: 100 mls/hr Documented by: Linezolid (Zyvox) Confirm Administered Dose 300 mls @ as directed .ROUTE .STK-ME D ONE Stop: 12/21/20 06:40 Fentanyl 2,500 mcg/ Sodium (Chloride) 250 mls @ 0 mls/hr EPIDUR TITRATE [facility]; Protocol Last Admin: 12/23/20 02:29 Dose: 8 mls/hr, 8 mls/hr Documented by: Sodium Chloride (Normal Saline) Confirm Administered Dose 10 mls @ as directed .ROUTE .STK-MED ONE Stop: 12/21/20 07:15 Sodium Chloride (Normal Saline) Confirm Administered Dose 10 mls @ as directed .ROUTE .STK-MED ONE Stop: 12/21/20 08:35 Lactated Ringer's (Ringers, Lactated) Confirm Administered Dose 1,000 mls @ as directed .ROUTE .STK-MED ONE Stop: 12/21/20 09:49 Linezolid (Zyvox) Confirm Administered Dose 300 mls @ as directed .ROUTE .STK- MED ONE Stop: 12/21/20 09:50 Sodium Chloride (Normal Saline) Confirm Administered Dose 10 mls @ as directed .ROUTE .STK-MED ONE Stop: 12/21/20 12:39 Lactated Ringer's (Ringers, Lactated) Confirm Administered Dose 1,000 mls @ as directed .ROUTE .STK-MED ONE Stop: 12/21/20 13:24 Dextrose/Lactated Ringer's (Dextrose 5%-Lactated Ringers) 1,000 mls @ 75 mls/hr IV ASDIRECTED [facility] Last Admin: 12/22/20 20:01 Dose: 100 mls/hr Documented by: Lactated Ringer's (Ringers, Lactated) 1,000 mls @ 100 mls/hr IV ASDIRECTED [facility] Last Admin: 12/22/20 08:31 Dose: 100 mls/hr Documented by: Cefoxitin Sodium 2 gm/ Sodium (Chloride) 50 mls @ 100 mls/hr IV Q6H [facility] Stop: 12/23/20 10:29 Last Admin: 12/23/20 10:28 Dose: 100 mls/hr Documented by: Lactated Ringer's (Ringers, Lactated) 500 mls @ 999 mls/hr IV ASDIRECTED [facility] Stop: 12/21/20 17:46 Last Admin: 12/21/20 17:10 Dose: 999 mls/hr Documented by: Lactated Ringer's (Ringers, Lactated) 500 mls @ 999 mls/hr IV ASDIRECTED [facility] Stop: 12/21/20 18:31 Last Admin: 12/21/20 18:00 Dose: 999 mls/hr Documented by: Norepinephrine Bitartrate 8 mg (/ Dextrose/Water) 258 mls @ 3.87 mls/hr IV TITRATE [facility]; Protocol Last Infusion: 12/22/20 23:28 Dose: 2 mcg/min, 3.87 mls/hr Documented by: Magnesium Sulfate 2 gm/ Premix 50 mls @ 25 mls/hr IV Q6H [facility] Stop: 12/22/20 02:14 Last Admin: 12/21/20 23:50 Dose: 25 mls/hr Documented by: Esmolol HCl (Esmolol Hcl In Sterile Water 2,500 Mg/250 Ml) 250 mls @ 27.488 mls/hr IV TITRATE [facility]; Protocol Last Admin: 12/22/20 03:23 Dose: 300 mcg/kg/min, 164.927 mls/hr Documented by: Diltiazem HCl 100 mg/ Sodium (Chloride) 100 mls @ 5 mls/hr IV TITRATE [facility]; Prot ocol Last Titration: 12/22/20 09:58 Dose: 13 mg/hr, 13 mls/hr Documented by: Lactated Ringer's (Ringers, Lactated) Confirm Administered Dose 1,000 mls @ as directed .ROUTE .[facility] ONE Stop: 12/23/20 07:39 Albumin Human (Albumin 25%) 25 gm in 100 mls @ 25 mls/hr IV Q24H [facility] Stop: 12/25/20 13:59 Last Admin: 12/25/20 10:47 Dose: 25 mls/hr Documented by: Potassium Phosphate 22.5 mmole (/ Sodium Chloride) 107.5 mls @ 27 mls/hr IV Q4H [facility] Stop: 12/23/20 18:59 Last Admin: 12/23/20 15:06 Dose: 27 mls/hr Documented by: Multivitamins/Minerals 10 ml/Zinc 1 ml/ Amino Ac/Electrol/Dextrose/Calcium 1,011 mls @ 82 mls/hr IV .BY DURATION [facility] Stop: 12/24/20 14:30 Last Admin: 12/23/20 13:46 Dose: 82 mls/hr Documented by: Amino Ac/Electrol/Dextrose/Calcium (Clinimix E 5/15) 1,000 mls @ 82 mls/hr IV .BY DURATION [facility] Stop: 12/24/20 14:30 Last Admin: 12/24/20 01:59 Dose: 82 mls/hr Documented by: Potassium Phosphate 22.5 mmole (/ Sodium Chloride) 107.5 mls @ 27 mls/hr IV Q4H [facility] Stop: 12/24/20 17:59 Last Admin: 12/24/20 15:27 Dose: 27 mls/hr Documented by: Multivitamins/Minerals 10 ml/Zinc 1 ml/ Amino Ac/Electrol/Dextrose/Calcium 1,011 mls @ 60 mls/hr IV .BY DURATION [facility] Last Admin: 12/26/20 02:54 Dose: 60 mls/hr Documented by: Amino Ac/Electrol/Dextrose/Calcium (Clinimix E 5/15) 1,000 mls @ 60 mls/hr IV .BY DURATION [facility] Last Admin: 12/26/20 20:04 Dose: 60 mls/hr Documented by: Potassium Phosphate 22.5 mmole (/ Sodium Chloride) 107.5 mls @ 27 mls/hr IV Q4H [facility] Stop: 12/26/20 17:59 Last Admin: 12/26/20 13:24 Dose: 27 mls/hr Documented by: Lidocaine/Epinephrine (Lidocaine 1% With Epinephrine 1:100,000 50 Ml Mdv) Confirm Administered Dose 50 ml .ROUTE .STK-MED ONE Stop: 12/21/20 06:40 Lidocaine/Epinephrine (Lidocaine 1% With Epinephrine 1:100,000 50 Ml Mdv) Confirm Administered Dose 50 ml .ROUTE .STK-MED ONE Stop: 12/23/20 06:36 Last Admin: 12/23/20 09:58 Dose: 17.5 ml Documented by: Linezolid (Linezolid 600 Mg/300 Ml Bag) 1,200 mg IRR .STK-MED ONE Stop: 12/21/20 09:59 Last Admin: 12/21/20 09:58 Dose: 1,200 mg Documented by: Meropenem (Meropenem 500 Mg Sdv) Confirm Administered Dose 500 mg .ROUTE .STK- MED ONE Stop: 12/21/20 06:40 Last Admin: 12/21/20 09:58 Dose: 1,000 mg Documented by: Meropenem (Meropenem 500 Mg Sdv) Confirm Administered Dose 500 mg .ROUTE .STK- MED ONE Stop: 12/21/20 09:50 Meropenem (Meropenem 500 Mg Sdv) Confirm Administered Dose 500 mg .ROUTE .STK- MED ONE Stop: 12/23/20 06:36 Last Admin: 12/23/20 09:59 Dose: 500 mg Documented by: Metoprolol Tartrate (Metoprolol Tartrate 25 Mg Tab) 12.5 mg PO BID [facility] Last Admin: 12/21/20 20:29 Dose: Not Given Documented by: Metoprolol Tartrate (Metoprolol Tartrate 5 Mg/5 Ml Sdv) 5 mg IVPUSH ONETIME ONE Stop: 12/21/20 17:01 Last Admin: 12/22/20 20:18 Dose: Not Given Documented by: Metoprolol Tartrate (Metoprolol Tartrate 5 Mg/5 Ml Sdv) 5 mg IVPUSH Q4H [facility] Last Admin: 12/21/20 19:37 Dose: 5 mg Documented by: Midazolam HCl (Midazolam 1 Mg/Ml 2 Ml Sdv) 1 mg IVPUSH ONETIME ONE Stop: 12/23/20 05:54 Last Admin: 12/23/20 06:10 Dose: 1 mg Documented by: Midazolam HCl (Midazolam 1 Mg/Ml 2 Ml Sdv) 1 mg IV Q4H PRN PRN Reason: RESTLESSNESS Naloxone HCl (Naloxone 0.4 Mg/Ml Sdv) 0.1 mg IVPUSH Q5M PRN PRN Reason: RESP RATE LESS THAN 6/MINUTE Naloxone HCl (Naloxone 0.4 Mg/Ml Sdv) 0.4 mg IVPUSH ONETIME PRN PRN Reason: Itching Last Admin: 12/22/20 20:00 Dose: 0.4 mg Documented by: Naloxone HCl (Naloxone 0.4 Mg/Ml Sdv) 0.1 mg IV ASDIRECTED PRN PRN Reason: decreased respiratory rate Neostigmine Methylsulfate (Neostigmine Methylsulfate 1 Mg/Ml 5 Ml Syringe) Confirm Administered Dose 5 mg .ROUTE .STK-MED ONE Stop: 12/21/20 07:13 Scopolamine Patch (Check) 1 each TOP DAILY [facility] Last Admin: 12/25/20 11:58 Dose: Not Given Documented by: Non-Formulary Medication (Central Total Parenteral Nutrition Bag) 1,000 ml .XX .Continue Order [facility] Stop: 12/26/20 12:00 Non-Formulary Medication (Central Total Parenteral Nutrition Bag) 1,000 ml .XX .Continue Order [facility] Stop: 12/27/20 09:00 Ondansetron HCl (Ondansetron 4 Mg/2 Ml Sdv) Confirm Administered Dose 4 mg .ROUTE .STK-MED ONE Stop: 12/21/20 07:13 Pantoprazole Sodium (Pantoprazole 40 Mg Vial) 40 mg IV Q24H [facility] Last Admin: 12/23/20 15:13 Dose: 40 mg Documented by: Potassium Chloride (Potassium Chloride 20 Meq Tab.Er) 40 meq PO ONETIME ONE Stop: 12/26/20 06:58 Last Admin: 12/26/20 09:05 Dose: 40 meq Documented by: Propafenone HCl (Propafenone 150 Mg Tab) 225 mg PO DAILY [facility] Last Admin: 12/22/20 08:41 Dose: Not Given Documented by: Propofol (Propofol 200 Mg/20 Ml Sdv) Confirm Administered Dose 200 mg .ROUTE .STK-MED ONE Stop: 12/21/20 07:13 Propofol (Propofol 200 Mg/20 Ml Sdv) Confirm Administered Dose 200 mg .ROUTE .STK-MED ONE Stop: 12/23/20 07:10 Propofol (Propofol 200 Mg/20 Ml Sdv) Confirm Administered Dose 200 mg .ROUTE .STK-MED ONE Stop: 12/23/20 08:05 Rocuronium [place] (Rocuronium 50 Mg/5 Ml Vial) Confirm Administered Dose 50 mg .ROUTE .STK-MED ONE Stop: 12/21/20 07:13 Rocuronium [place] (Rocuronium 50 Mg/5 Ml Vial) Confirm Administered Dose 50 mg .ROUTE .STK-MED ONE Stop: 12/21/20 09:03 Rocuronium [place] (Rocuronium 50 Mg/5 Ml Vial) Confirm Administered Dose 50 mg .ROUTE .STK-MED ONE Stop: 12/21/20 12:11 Scopolamine (Scopolamine 1.5 Mg Transdermal Patch) Confirm Administered Dose 1.5 mg .ROUTE .STK-MED ONE Stop: 12/21/20 08:29 Scopolamine (Scopolamine 1.5 Mg Transdermal Patch) 1.5 mg TOP Q72H [facility] Succinylcholine Chloride (Succinylcholine 200 Mg/10 Ml Mdv) Confirm Administered Dose 200 mg .ROUTE .STK-MED ONE Stop: 12/21/20 07:13 - Exam Quality Assessment: DVT Prophylaxis Central Line Total Time: 4Days 19Hours Urinary Catheter Total Time: 6Days 1Hours General: Alert, Oriented, Cooperative, Mild Distress Lungs: Clear to Auscultation, Normal Respiratory Effort Cardiovascular: Regular Rate, Regular Rhythm GI/Abdominal Exam: Soft, No Organomegaly, Tender. No: Distended, Guarding, Rigid, Rebound Extremities: Non-Tender, No Pedal Edema - Patient Data Lab Results Last 24 hrs: Laboratory Results - last 24 hr 12/21/20 12/28/20 12/28/20 Range/Units 06:06 05:25 05:25 WBC 8.7 (4.5-11.0) K/uL RBC 3.49 L (4.30-5.90) M/uL Hgb 9.5 L (12.0-15.0) g/dL Hct 30.7 L (40.0-54.0) % MCV 88 (80-98) fL MCH 27 (27-31) pg MCHC 31 L (32-36) % Plt Count 150 (150-400) K/uL Sodium 142 (140-148) mmol/L Potassium 3.6 (3.6-5.2) mmol/L Chloride 106 (100-108) mmol/L Carbon Dioxide 28 (21-32) mmol/L Anion Gap 8.2 (5.0-14.0) mmol/L BUN 45 H (7-18) mg/dL Creatinine 1.4 H (0.8-1.3) mg/dL Est Cr Clr Drug Dosing 37.66 mL/min Estimated GFR (MDRD) 48 L (>60) Glucose 89 (74-106) mg/dL Calcium 8.4 L (8.5-10.1) mg/dL Phosphorus 3.8 (2.5-4.9) mg/dL Total Bilirubin 0.5 (0.2-1.0) mg/dL AST 22 (15-37) U/L ALT 30 (12-78) U/L Alkaline Phosphatase 61 (46-116) U/L NT-Pro-B Natriuret Pep 3183 H (5-450) pg/mL Total Protein 4.5 L (6.4-8.2) g/dL Albumin 2.4 L (3.4-5.0) g/dL Globulin 2.1 L (2.3-3.5) g/dL Albumin/Globulin Ratio 1.1 L (1.2-2.2) Crossmatch See Detail Result Diagrams: 12/28/20 05:25 12/28/20 05:25 Sepsis Event Note - Evaluation Sepsis Screening Result: No Definite Risk - Focused Exam Vital Signs: Vital Signs Temp Pulse Pulse Resp BP BP BP 12/28/20 10:29 95.2 F L 87 18 105/36 L 12/28/20 10:04 83 103/60 12/28/20 09:30 82 12/28/20 07:39 94.8 F L 66 18 103/60 12/28/20 02:08 94.9 F L 74 20 94/54 L 12/27/20 23:12 95.8 F L 74 18 102/61 Pulse Ox 12/28/20 10:29 97 12/28/20 10:04 12/28/20 09:30 12/28/20 07:39 95 12/28/20 02:08 98 12/27/20 23:12 96 - Problem List Review Problem List Initiated/Reviewed/Updated: Yes - Plan Plan:: ASSESSMENT AND PLAN 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 Duggan -Postoperative care as per the surgical team Hyperactive delirium-much less confused and agitated over the past 3 days -Scheduled acetaminophen for pain control -Melatonin at bedtime -low-dose Depakote Rapid atrial fibrillation-rate control has improved with oral medications. -Metoprolol 25 mg every 12 hours -Propafenone 3 times a day -Additional rate control if indicated -Continue cardiac monitoring -We will need to reassess apixaban prior to hospital discharge Postoperative hypotension-resolved Anemia due to blood loss-he has had 5 units of blood total, 2 during surgery and 3 after surgery. Hemoglobin stable. -I would recommend a transfusion threshold of the hemoglobin less than 8 Acute kidney injury-creatinine has trended down with volume resuscitation after surgery. History of congestive heart failure-patient has mild evidence for volume overload. Furosemide ordered again today. Maintenance issues - -DVT prophylaxis-mechanical -GI prophylaxis-PPI -Nutrition-full liquids -Gan catheter-necessary for strict intake and output monitoring, reassess daily Disposition-I would [facility] after the hospital stay.
[2020-12-28] MEDS: Pantoprazole 40 MG Tab.CR PO SCH (17:23)
[2020-12-28] MEDS: Melatonin 3 MG Tab PO SCH (20:38)
[2020-12-28] MEDS: Tamsulosin 0.4 MG Cap.ER PO SCH (20:39)
[2020-12-29] MEDS: Magnesium Sulfate/Water 2 GM/50 ML BAG IV SCH (03:59)
[2020-12-29] MEDS ORDERED: Furosemide 20 MG/2 ML VIAL IVPUSH ONE (07:10)
[2020-12-29] MEDS ORDERED: Lidocaine 1% with EPINEPHrine 1:100,000 50 ML MDV INFILT ONE (07:45)
[2020-12-29] MEDS: Dextrose 5%-Lactated Ringers 1,000 ML IV SCH ×2 (07:52→21:06)
--- NOTE | 2020-12-29 08:01 | PN ---
DATE OF SERVICE: 12/29/2020 SUBJECTIVE: Arnie has been doing fairly well. His labs this morning showed a creatinine of 1.9. GFR 34. BNP of 4517. His oral intake was 1185, ostomy output was 725. He still is leaking clear fluid quite a bit from his perineal incision. REVIEW OF SYSTEMS: Remainder of review of systems negative for any pertinent positives or negatives. OBJECTIVE: GENERAL: Arnie is a pleasant 89-year-old male. He is alert, orientated, but states he is quite tired today. VITAL SIGNS: TPR is 95.9, 81, 16, blood pressure 89/48. HEENT: Negative. NECK: Supple. HEART: Regular rate and rhythm. LUNGS: Decreased bilaterally. He has some rales in the left lower base, and he does have a cough. ABDOMEN: Dressings are dry and intact. GENITOURINARY: His perineal dressing was just changed and has been changed frequently. He has been incontinent of urine. EXTREMITIES: Without peripheral edema. ASSESSMENT: Exploratory laparotomy with: 1. Anterior perineal repair. 2. Mobilization of omentum, intraperitoneal mesh to displace small bowel from pelvis. POSTOPERATIVE DIAGNOSES: 1. Low rectal adenocarcinoma, status neoadjuvant chemoradiation treatment. Date of procedure: 12/21/2020. Surgeon: Mohsen Duggan MD. 2. Delayed primary closure for open abdominal incision. Date of procedure 12/23/2020. Surgeon: Mohsen Duggan MD. 3. Atrial fibrillation with rapid ventricular response. PLAN: 1. Start IV, D5 LR at 100 mL per hour. 2. Lasix 20 mg IV now. 3. Check CBC, CMP, mag, phos, and BNP in a.m. 4. Scrotal support for scrotal swelling. 5. Mohsen Duggan MD, will come up sometime during the day to suture the anterior perineal incision to prevent leaking of the fluid, clear, or serosanguineous drainage. 6. We will evaluate p.r.n. or in a.m. 7. Plan discharge to a detention in a.m. Tisha Crocker PA-C /[id number]
[2020-12-29] MEDS: Divalproex Sodium Delayed-Release 125 MG Cap.Sprink PO SCH ×2 (09:14→16:56)
[2020-12-29] MEDS: Aspirin 81 MG Tab.EC PO SCH (09:14)
[2020-12-29] MEDS: Metoprolol Tartrate 25 MG Tab PO SCH (09:14)
[2020-12-29] MEDS: atorvaSTATin 10 MG Tab PO SCH (09:15)
[2020-12-29] MEDS: Acetaminophen 500 MG Tab PO SCH ×3 (09:15→21:05)
[2020-12-29] MEDS: Docusate Sodium 100 MG Cap PO SCH ×2 (09:15→21:05)
[2020-12-29] MEDS: Bisacodyl 5 MG Tab PO SCH ×2 (09:15→21:05)
[2020-12-29] MEDS ORDERED: Sodium Chloride 0.9% 500 ML IV ONE (11:25)
[2020-12-29] MEDS ORDERED: Norepinephrine 4 MG in Dextrose 5% in Water 246 ML IV SCH ×2 (12:30)
--- NOTE | 2020-12-29 14:25 | PCM.PN ---
- General Info Date of Service: 12/29/20 Subjective Update: Mr. Infante unfortunately experienced hypotension this morning. He did undergo further suturing, because of leakage from the wound in the perineum. Blood pressures earlier this morning were somewhat borderline, during the later morning had systolic pressures in the 60s that did not respond to a fluid bolus. He has been transferred to the intensive care unit and started on IV infusion of norepinephrine with good result. He denies any symptoms of chest pain shortness of breath. He did receive IV furosemide as well as metoprolol this morning. He has not had significant temperature elevation, labs are pending. - Review of Systems General: Reports: Weakness, Fatigue. Denies: Fever, Chills Pulmonary: Reports: No Symptoms Cardiovascular: Reports: No Symptoms Gastrointestinal: Reports: No Symptoms Genitourinary: Reports: No Symptoms - Patient Data Vitals - Most Recent: Last Vital Signs Temp 95.3 F L 12/29/20 12:58 Pulse 82 12/29/20 14:00 Resp 16 12/29/20 14:00 BP 108/43 L 12/29/20 14:00 Pulse Ox 97 12/29/20 14:00 Weight - Most Recent: 202 lb I&O - Last 24 Hours: Intake & Output 12/28/20 12/29/20 12/29/20 22:59 06:59 14:59 Intake Total 533 475 240 Output Total 600 125 600 Balance -67 350 -360 Lab Results Last 24 Hours: Laboratory Results - last 24 hr 12/29/20 12/29/20 12/29/20 Range/Units 04:53 04:53 14:12 WBC 8.9 8.3 (4.5-11.0) K/uL RBC 3.62 L 3.39 L (4.30-5.90) M/uL Hgb 9.6 L 9.2 L (12.0-15.0) g/dL Hct 31.6 L 29.7 L (40.0-54.0) % MCV 87 88 (80-98) fL MCH 27 27 (27-31) pg MCHC 30 L 31 L (32-36) % Plt Count 172 64 L (150-400) K/uL Neut % (Auto) 86.3 H (36-66) % Lymph % (Auto) 4.0 L (24-44) % Mifflin % (Auto) 7.4 H (2-6) % Eos % (Auto) 2.2 (2-4) % Baso % (Auto) 0.1 (0-1) % Sodium 140 (140-148) mmol/L Potassium 4.1 (3.6-5.2) mmol/L Chloride 105 (100-108) mmol/L Carbon Dioxide 27 (21-32) mmol/L Anion Gap 8.4 (5.0-14.0) mmol/L BUN 49 H (7-18) mg/dL Creatinine 1.9 H (0.8-1.3) mg/dL Est Cr Clr Drug Dosing 27.75 mL/min Estimated GFR (MDRD) 34 L (>60) Glucose 103 (74-106) mg/dL Calcium 8.5 (8.5-10.1) mg/dL Phosphorus 4.1 (2.5-4.9) mg/dL Total Bilirubin 0.8 D (0.2-1.0) mg/dL AST 12 L (15-37) U/L ALT 23 (12-78) U/L Alkaline Phosphatase 57 (46-116) U/L NT-Pro-B Natriuret Pep 4517 H (5-450) pg/mL Total Protein 4.9 L (6.4-8.2) g/dL Albumin 2.5 L (3.4-5.0) g/dL Globulin 2.4 (2.3-3.5) g/dL Albumin/Globulin Ratio 1.0 L (1.2-2.2) Med Orders - Current: Current Medications Acetaminophen (Acetaminophen 500 Mg Tab) 1,000 mg PO TID [facility] Last Admin: 12/29/20 09:15 Dose: 1,000 mg Documented by: Aspirin (Aspirin 81 Mg Tab.Ec) 81 mg PO DAILY [facility] Last Admin: 12/29/20 09:14 Dose: 81 mg Documented by: Atorvastatin Calcium (Atorvastatin 10 Mg Tab) 10 mg PO DAILY [facility] Last Admin: 12/29/20 09:15 Dose: 10 mg Documented by: Bisacodyl (Bisacodyl 5 Mg Tab) 10 mg PO BID [facility] Last Admin: 12/29/20 09:15 Dose: Not Given Documented by: Diphenhydramine HCl (Diphenhydramine 25 Mg Cap) 25 mg PO Q4H PRN PRN Reason: Itching Last Admin: 12/25/20 16:21 Dose: 25 mg Documented by: Divalproex Sodium (Divalproex Sodium Delayed-Release 125 Mg Cap.Sprink) 125 mg PO BIDMEALS [facility] Last Admin: 12/29/20 09:14 Dose: 125 mg Documented by: Docusate Sodium (Docusate Sodium 100 Mg Cap) 100 mg PO BID [facility] Last Admin: 12/29/20 09:15 Dose: Not Given Documented by: Haloperidol Lactate (Haloperidol Lactate 5 Mg/Ml Sdv) 5 mg IVPUSH Q2H PRN PRN Reason: Agitation Last Admin: 12/25/20 14:56 Dose: 5 mg Documented by: Heparin Sodium (Porcine) (Heparin Sodium 100 Units/Ml 5 Ml Syringe) 500 units FLUSH ASDIRECTED PRN PRN Reason: IV Use Last Admin: 12/28/20 13:28 Dose: 500 units Documented by: Hydroxyzine HCl (Hydroxyzine Hcl 100 Mg/2 Ml Sdv) 0 mg IM Q4H PRN PRN Reason: PAIN Last Admin: 12/25/20 04:28 Dose: 100 mg Documented by: Albumin Human (Albumin 25%) 25 gm in 100 mls @ 25 mls/hr IV DAILY [facility] Last Admin: 12/29/20 09:12 Dose: 25 mls/hr Documented by: Dextrose/Lactated Ringer's (Dextrose 5%-Lactated Ringers) 1,000 mls @ 100 mls/hr IV ASDIRECTED [facility] Last Admin: 12/29/20 07:52 Dose: 100 mls/hr Documented by: Norepinephrine Bitartrate 4 mg (/ Dextrose/Water) 250 mls @ 7.5 mls/hr IV TITRATE [facility]; Protocol Last Titration: 12/29/20 12:57 Dose: 2 mcg/min, 7.5 mls/hr Documented by: Melatonin (Melatonin 3 Mg Tab) 9 mg PO BEDTIME [facility] Last Admin: 12/28/20 20:38 Dose: 9 mg Documented by: Ondansetron HCl (Ondansetron 4 Mg/2 Ml Sdv) 4 mg IVPUSH Q4H PRN PRN Reason: Nausea Pantoprazole Sodium (Pantoprazole 40 Mg Tab.Cr) 40 mg PO ACDINNER [facility] Last Admin: 12/28/20 17:23 Dose: 40 mg Documented by: Propafenone HCl (Propafenone 150 Mg Tab) 225 mg PO BID [facility] Tamsulosin HCl (Tamsulosin 0.4 Mg Cap.Er) 0.4 mg PO BEDTIME [facility] Last Admin: 12/28/20 20:39 Dose: 0.4 mg Documented by: Tramadol HCl (Tramadol 50 Mg Tab) 50 mg PO Q6H PRN PRN Reason: Pain Last Admin: 12/25/20 16:21 Dose: 50 mg Documented by: Discontinued Medications Acetaminophen (Acetaminophen 500 Mg Tab) 1,000 mg PO ONETIME ONE Stop: 12/21/20 05:46 Last Admin: 12/21/20 06:20 Dose: 1,000 mg Documented by: Alvimopan (Alvimopan 12 Mg Capsule) 12 mg PO ONETIME ONE Stop: 12/21/20 06:37 Last Admin: 12/21/20 07:02 Dose: 12 mg Documented by: Alvimopan (Alvimopan 12 Mg Capsule) 12 mg PO Q12H [facility] Stop: 12/25/20 20:01 Last Admin: 12/25/20 20:55 Dose: Not Given Documented by: Bupivacaine HCl (Bupivacaine 0.5% 50 Ml Mdv) Confirm Administered Dose 50 ml .ROUTE .STK-MED ONE Stop: 12/21/20 06:40 Bupivacaine HCl (Bupivacaine 0.5% 50 Ml Mdv) Confirm Administered Dose 50 ml .ROUTE .STK-MED ONE Stop: 12/23/20 06:36 Last Admin: 12/23/20 09:57 Dose: 17.5 ml Documented by: Cefoxitin Sodium (Cefoxitin 2 Gm Vial) Confirm Administered Dose 2 gm .ROUTE .STK-MED ONE Stop: 12/21/20 12:39 Meropenem 500 mg/ Sodium (Chloride 750 ml) 0 mg .XX ONETIME ONE Stop: 12/21/20 07:16 Last Admin: 12/21/20 07:10 Dose: 700 cont Documented by: Ropivacaine 45 ml/Dexamethasone 8 mg/Epinephrine HCl 0.4 mg/ Sodium Chloride 32.6 ml 0 ml NERVRT ASDIRECTED [facility] Last Admin: 12/23/20 08:36 Dose: 80 syringe Documented by: Dexamethasone (Dexamethasone 4 Mg/Ml Sdv) Confirm Administered Dose 4 mg .ROUTE .STK-MED ONE Stop: 12/21/20 07:13 Digoxin (Digoxin 500 Mcg/2 Ml Amp) 125 mcg IVPUSH ONETIME ONE Stop: 12/21/20 17:16 Last Admin: 12/21/20 17:15 Dose: 125 mcg Documented by: Digoxin (Digoxin 500 Mcg/2 Ml Amp) Confirm Administered Dose 500 mcg .ROUTE .STK-MED ONE Stop: 12/21/20 17:14 Last Admin: 12/21/20 17:27 Dose: Not Given Documented by: Fentanyl (Fentanyl 250 Mcg/5 Ml Sdv) Confirm Administered Dose 250 mcg .ROUTE .STK-MED ONE Stop: 12/21/20 07:12 Fentanyl (Fentanyl 100 Mcg/2 Ml Sdv) Confirm Administered Dose 100 mcg .ROUTE .STK-MED ONE Stop: 12/21/20 12:20 Fentanyl (Fentanyl 100 Mcg/2 Ml Sdv) Confirm Administered Dose 100 mcg .ROUTE .STK-MED ONE Stop: 12/21/20 14:19 Furosemide (Furosemide 20 Mg/2 Ml Vial) 20 mg IVPUSH ONETIME ONE Stop: 12/23/20 09:31 Last Admin: 12/23/20 10:20 Dose: 20 mg Documented by: Furosemide (Furosemide 20 Mg/2 Ml Vial) 20 mg IVPUSH Q6H [facility] Stop: 12/24/20 14:31 Last Admin: 12/24/20 14:02 Dose: 20 mg Documented by: Furosemide (Furosemide 40 Mg/4 Ml Vial) 40 mg IVPUSH ONETIME ONE Stop: 12/25/20 10:55 Last Admin: 12/25/20 11:13 Dose: 40 mg Documented by: Furosemide (Furosemide 20 Mg/2 Ml Vial) 20 mg IVPUSH Q8H [facility] Stop: 12/27/20 06:01 Last Admin: 12/27/20 06:15 Dose: 20 mg Documented by: Furosemide (Furosemide 20 Mg/2 Ml Vial) 20 mg IVPUSH BID [facility] Stop: 12/27/20 23:59 Last Admin: 12/27/20 20:12 Dose: 20 mg Documented by: Furosemide (Furosemide 20 Mg/2 Ml Vial) 20 mg IVPUSH ONETIME ONE Stop: 12/29/20 07:11 Last Admin: 12/29/20 07:52 Dose: 20 mg Documented by: Glycopyrrolate (Glycopyrrolate 0.2 Mg/Ml 5 Ml Mdv) Confirm Administered Dose 1 mg .ROUTE .STK-MED ONE Stop: 12/21/20 07:13 Haloperidol Lactate (Haloperidol Lactate 5 Mg/Ml Sdv) 2.5 mg IVPUSH Q4H PRN PRN Reason: Agitation Last Admin: 12/24/20 22:57 Dose: 2.5 mg Documented by: Heparin Sodium (Porcine) (Heparin Sodium 100 Units/Ml 5 Ml Syringe) Confirm Administered Dose 500 units .ROUTE .STK-MED ONE Stop: 12/23/20 06:56 Last Admin: 12/23/20 09:58 Dose: 500 units Documented by: Hydromorphone HCl (Hydromorphone/Normal Saline 15 Mg/30 Ml [employer]) 15 mg IV ASDIRECTED PRN; Protocol PRN Reason: [employer] Last Admin: 12/23/20 09:50 Dose: 15 mg Documented by: Dextrose/Lactated Ringer's (Dextrose 5%-Lactated Ringers) 1,000 mls @ 100 mls/hr IV ASDIRECTED [facility] Last Admin: 12/21/20 06:20 Dose: 100 mls/hr Documented by: Cefoxitin Sodium 2 gm/ Sodium (Chloride) 50 mls @ 100 mls/hr IV ONETIME ONE Stop: 12/21/20 08:14 Last Admin: 12/21/20 07:52 Dose: 100 mls/hr Documented by: Linezolid (Zyvox) Confirm Administered Dose 300 mls @ as directed .ROUTE .STK- MED ONE Stop: 12/21/20 06:40 Fentanyl 2,500 mcg/ Sodium (Chloride) 250 mls @ 0 mls/hr EPIDUR TITRATE [facility]; Protocol Last Admin: 12/23/20 02:29 Dose: 8 mls/hr, 8 mls/hr Documented by: Sodium Chloride (Normal Saline) Confirm Administered Dose 10 mls @ as directed .ROUTE .STK-MED ONE Stop: 12/21/20 07:15 Sodium Chloride (Normal Saline) Confirm Administered Dose 10 mls @ as directed .ROUTE .STK-MED ONE Stop: 12/21/20 08:35 Lactated Ringer's (Ringers, Lactated) Confirm Administered Dose 1,000 mls @ as directed .ROUTE .STK-MED ONE Stop: 12/21/20 09:49 Linezolid (Zyvox) Confirm Administered Dose 300 mls @ as directed .ROUTE .[facility] ONE Stop: 12/21/20 09:50 Sodium Chloride (Normal Saline) Confirm Administered Dose 10 mls @ as directed .ROUTE .[facility] ONE Stop: 12/21/20 12:39 Lactated Ringer's (Ringers, Lactated) Confirm Administered Dose 1,000 mls @ as directed .ROUTE .[facility] ONE Stop: 12/21/20 13:24 Dextrose/Lactated Ringer's (Dextrose 5%-Lactated Ringers) 1,000 mls @ 75 mls/hr IV ASDIRECTED [facility] Last Admin: 12/22/20 20:01 Dose: 100 mls/hr Documented by: Lactated Ringer's (Ringers, Lactated) 1,000 mls @ 100 mls/hr IV ASDIRECTED [facility] Last Admin: 12/22/20 08:31 Dose: 100 mls/hr Documented by: Cefoxitin Sodium 2 gm/ Sodium (Chloride) 50 mls @ 100 mls/hr IV Q6H [facility] Stop: 12/23/20 10:29 Last Admin: 12/23/20 10:28 Dose: 100 mls/hr Documented by: Lactated Ringer's (Ringers, Lactated) 500 mls @ 999 mls/hr IV ASDIRECTED [facility] Stop: 12/21/20 17:46 Last Admin: 12/21/20 17:10 Dose: 999 mls/hr Documented by: Lactated Ringer's (Ringers, Lactated) 500 mls @ 999 mls/hr IV ASDIRECTED [facility] Stop: 12/21/20 18:31 Last Admin: 12/21/20 18:00 Dose: 999 mls/hr Documented by: Norepinephrine Bitartrate 8 mg (/ Dextrose/Water) 258 mls @ 3.87 mls/hr IV TITRATE [facility]; Protocol Last Infusion: 12/22/20 23:28 Dose: 2 mcg/min, 3.87 mls/hr Documented by: Magnesium Sulfate 2 gm/ Premix 50 mls @ 25 mls/hr IV Q6H [facility] Stop: 12/22/20 02:14 Last Admin: 12/21/20 23:50 Dose: 25 mls/hr Documented by: Esmolol HCl (Esmolol Hcl In Sterile Water 2,500 Mg/250 Ml) 250 mls @ 27.488 mls/hr IV TITRATE [facility]; Protocol Last Admin: 12/22/20 03:23 Dose: 300 mcg/kg/min, 164.927 mls/hr Documented by: Diltiazem HCl 100 mg/ Sodium (Chloride) 100 mls @ 5 mls/hr IV TITRATE [facility]; Protocol Last Titration: 12/22/20 09:58 Dose: 13 mg/hr, 13 mls/hr Documented by: Dextrose/Lactated Ringer's (Dextrose 5%-Lactated Ringers) 1,000 mls @ 25 mls/hr IV ASDIRECTED [facility] Last Admin: 12/23/20 17:44 Dose: 25 mls/hr Documented by: Lactated Ringer's (Ringers, Lactated) Confirm Administered Dose 1,000 mls @ as directed .ROUTE .K-MED ONE Stop: 12/23/20 07:39 Albumin Human (Albumin 25%) 25 gm in 100 mls @ 25 mls/hr IV Q24H [facility] Stop: 12/25/20 13:59 Last Admin: 12/25/20 10:47 Dose: 25 mls/hr Documented by: Potassium Phosphate 22.5 mmole (/ Sodium Chloride) 107.5 mls @ 27 mls/hr IV Q4H [facility] Stop: 12/23/20 18:59 Last Admin: 12/23/20 15:06 Dose: 27 mls/hr Documented by: Multivitamins/Minerals 10 ml/Zinc 1 ml/ Amino Ac/Electrol/Dextrose/Calcium 1,011 mls @ 82 mls/hr IV .BY DURATION [facility] Stop: 12/24/20 14:30 Last Admin: 12/23/20 13:46 Dose: 82 mls/hr Documented by: Amino Ac/Electrol/Dextrose/Calcium (Clinimix E 5/15) 1,000 mls @ 82 mls/hr IV .BY DURATION [facility] Stop: 12/24/20 14:30 Last Admin: 12/24/20 01:59 Dose: 82 mls/hr Documented by: Potassium Phosphate 22.5 mmole (/ Sodium Chloride) 107.5 mls @ 27 mls/hr IV Q4H [facility] Stop: 12/24/20 17:59 Last Admin: 12/24/20 15:27 Dose: 27 mls/hr Documented by: Multivitamins/Minerals 10 ml/Zinc 1 ml/ Amino Ac/Electrol/Dextrose/Calcium 1,011 mls @ 60 mls/hr IV .BY DURATION [facility] Last Admin: 12/26/20 02:54 Dose: 60 mls/hr Documented by: Amino Ac/Electrol/Dextrose/Calcium (Clinimix E 5/15) 1,000 mls @ 60 mls/hr IV .BY DURATION [facility] Last Admin: 12/26/20 20:04 Dose: 60 mls/hr Documented by: Magnesium Sulfate (Magnesium Sulfate In Water 2 Gm/50 Ml) 2 gm in 50 mls @ 25 mls/hr IV Q6H [facility] Stop: 12/29/20 04:29 Last Admin: 12/29/20 03:59 Dose: 25 mls/hr Documented by: Potassium Phosphate 22.5 mmole (/ Sodium Chloride) 107.5 mls @ 27 mls/hr IV Q4H [facility] Stop: 12/26/20 17:59 Last Admin: 12/26/20 13:24 Dose: 27 mls/hr Documented by: Sodium Chloride (Normal Saline) 500 mls @ 500 mls/hr IV .BOLUS ONE Stop: 12/29/20 12:24 Last Admin: 12/29/20 11:33 Dose: 500 mls/hr Documented by: Lidocaine/Epinephrine (Lidocaine 1% With Epinephrine 1:100,000 50 Ml Mdv) Confirm Administered Dose 50 ml .ROUTE .STK-MED ONE Stop: 12/21/20 06:40 Lidocaine/Epinephrine (Lidocaine 1% With Epinephrine 1:100,000 50 Ml Mdv) Confirm Administered Dose 50 ml .ROUTE .STK-MED ONE Stop: 12/23/20 06:36 Last Admin: 12/23/20 09:58 Dose: 17.5 ml Documented by: Lidocaine/Epinephrine (Lidocaine 1% With Epinephrine 1:100,000 50 Ml Mdv) 50 ml INFILT ONETIME ONE Stop: 12/29/20 07:46 Last Admin: 12/29/20 09:12 Dose: 50 ml Documented by: Linezolid (Linezolid 600 Mg/300 Ml Bag) 1,200 mg IRR .STK-MED ONE Stop: 12/21/20 09:59 Last Admin: 12/21/20 09:58 Dose: 1,200 mg Documented by: Meropenem (Meropenem 500 Mg Sdv) Confirm Administered Dose 500 mg .ROUTE .STK- MED ONE Stop: 12/21/20 06:40 Last Admin: 12/21/20 09:58 Dose: 1,000 mg Documented by: Meropenem (Meropenem 500 Mg Sdv) Confirm Administered Dose 500 mg .ROUTE .STK- MED ONE Stop: 12/21/20 09:50 Meropenem (Meropenem 500 Mg Sdv) Confirm Administered Dose 500 mg .ROUTE .STK- MED ONE Stop: 12/23/20 06:36 Last Admin: 12/23/20 09:59 Dose: 500 mg Documented by: Metoprolol Tartrate (Metoprolol Tartrate 25 Mg Tab) 12.5 mg PO BID [facility] Last Admin: 12/21/20 20:29 Dose: Not Given Documented by: Metoprolol Tartrate (Metoprolol Tartrate 5 Mg/5 Ml Sdv) 5 mg IVPUSH ONETIME ONE Stop: 12/21/20 17:01 Last Admin: 12/22/20 20:18 Dose: Not Given Documented by: Metoprolol Tartrate (Metoprolol Tartrate 5 Mg/5 Ml Sdv) 5 mg IVPUSH Q4H [facility] Last Admin: 12/21/20 19:37 Dose: 5 mg Documented by: Metoprolol Tartrate (Metoprolol Tartrate 25 Mg Tab) 25 mg PO Q12H [facility] Last Admin: 12/29/20 09:14 Dose: 25 mg Documented by: Midazolam HCl (Midazolam 1 Mg/Ml 2 Ml Sdv) 1 mg IVPUSH ONETIME ONE Stop: 12/23/20 05:54 Last Admin: 12/23/20 06:10 Dose: 1 mg Documented by: Midazolam HCl (Midazolam 1 Mg/Ml 2 Ml Sdv) 1 mg IV Q4H PRN PRN Reason: RESTLESSNESS Naloxone HCl (Naloxone 0.4 Mg/Ml Sdv) 0.1 mg IVPUSH Q5M PRN PRN Reason: RESP RATE LESS THAN 6/MINUTE Naloxone HCl (Naloxone 0.4 Mg/Ml Sdv) 0.4 mg IVPUSH ONETIME PRN PRN Reason: Itching Last Admin: 12/22/20 20:00 Dose: 0.4 mg Documented by: Naloxone HCl (Naloxone 0.4 Mg/Ml Sdv) 0.1 mg IV ASDIRECTED PRN PRN Reason: decreased respiratory rate Neostigmine Methylsulfate (Neostigmine Methylsulfate 1 Mg/Ml 5 Ml Syringe) Confirm Administered Dose 5 mg .ROUTE .STK-MED ONE Stop: 12/21/20 07:13 Scopolamine Patch (Check) 1 each TOP DAILY [facility] Last Admin: 12/25/20 11:58 Dose: Not Given Documented by: Non-Formulary Medication (Central Total Parenteral Nutrition Bag) 1,000 ml .XX .Continue Order [facility] Stop: 12/26/20 12:00 Non-Formulary Medication (Central Total Parenteral Nutrition Bag) 1,000 ml .XX .Continue Order [facility] Stop: 12/27/20 09:00 Ondansetron HCl (Ondansetron 4 Mg/2 Ml Sdv) Confirm Administered Dose 4 mg .ROUTE .STK-MED ONE Stop: 12/21/20 07:13 Pantoprazole Sodium (Pantoprazole 40 Mg Vial) 40 mg IV Q24H [facility] Last Admin: 12/23/20 15:13 Dose: 40 mg Documented by: Potassium Chloride (Potassium Chloride 20 Meq Tab.Er) 40 meq PO ONETIME ONE Stop: 12/26/20 06:58 Last Admin: 12/26/20 09:05 Dose: 40 meq Documented by: Propafenone HCl (Propafenone 150 Mg Tab) 225 mg PO DAILY [facility] Last Admin: 12/22/20 08:41 Dose: Not Given Documented by: Propafenone HCl (Propafenone 150 Mg Tab) 225 mg PO TID [facility] Last Admin: 12/29/20 09:14 Dose: 225 mg Documented by: Propofol (Propofol 200 Mg/20 Ml Sdv) Confirm Administered Dose 200 mg .ROUTE .STK-MED ONE Stop: 12/21/20 07:13 Propofol (Propofol 200 Mg/20 Ml Sdv) Confirm Administered Dose 200 mg .ROUTE .STK-MED ONE Stop: 12/23/20 07:10 Propofol (Propofol 200 Mg/20 Ml Sdv) Confirm Administered Dose 200 mg .ROUTE .STK-MED ONE Stop: 12/23/20 08:05 Rocuronium [place] (Rocuronium 50 Mg/5 Ml Vial) Confirm Administered Dose 50 mg .ROUTE .STK-MED ONE Stop: 12/21/20 07:13 Rocuronium [place] (Rocuronium 50 Mg/5 Ml Vial) Confirm Administered Dose 50 mg .ROUTE .STK-MED ONE Stop: 12/21/20 09:03 Rocuronium [place] (Rocuronium 50 Mg/5 Ml Vial) Confirm Administered Dose 50 mg .ROUTE .STK-MED ONE Stop: 12/21/20 12:11 Scopolamine (Scopolamine 1.5 Mg Transdermal Patch) Confirm Administered Dose 1.5 mg .ROUTE .STK-MED ONE Stop: 12/21/20 08:29 Scopolamine (Scopolamine 1.5 Mg Transdermal Patch) 1.5 mg TOP Q72H [facility] Succinylcholine Chloride (Succinylcholine 200 Mg/10 Ml Mdv) Confirm Administered Dose 200 mg .ROUTE .STK-MED ONE Stop: 12/21/20 07:13 - Exam Quality Assessment: DVT Prophylaxis Central Line Total Time: 6Days 1Hours Urinary Catheter Total Time: 6Days 1Hours General: Lethargic Lungs: Clear to Auscultation, Normal Respiratory Effort Cardiovascular: Regular Rate, Regular Rhythm, No Murmurs GI/Abdominal Exam: Soft, Non-Tender, No Organomegaly, No Distention Extremities: Non-Tender, Pedal Edema - Patient Data Lab Results Last 24 hrs: Laboratory Results - last 24 hr 12/29/20 12/29/20 12/29/20 Range/Units 04:53 04:53 14:12 WBC 8.9 8.3 (4.5-11.0) K/uL RBC 3.62 L 3.39 L (4.30-5.90) M/uL Hgb 9.6 L 9.2 L (12.0-15.0) g/dL Hct 31.6 L 29.7 L (40.0-54.0) % MCV 87 88 (80-98) fL MCH 27 27 (27-31) pg MCHC 30 L 31 L (32-36) % Plt Count 172 64 L (150-400) K/uL Neut % (Auto) 86.3 H (36-66) % Lymph % (Auto) 4.0 L (24-44) % Mifflin % (Auto) 7.4 H (2-6) % Eos % (Auto) 2.2 (2-4) % Baso % (Auto) 0.1 (0-1) % Sodium 140 (140-148) mmol/L Potassium 4.1 (3.6-5.2) mmol/L Chloride 105 (100-108) mmol/L Carbon Dioxide 27 (21-32) mmol/L Anion Gap 8.4 (5.0-14.0) mmol/L BUN 49 H (7-18) mg/dL Creatinine 1.9 H (0.8-1.3) mg/dL Est Cr Clr Drug Dosing 27.75 mL/min Estimated GFR (MDRD) 34 L (>60) Glucose 103 (74-106) mg/dL Calcium 8.5 (8.5-10.1) mg/dL Phosphorus 4.1 (2.5-4.9) mg/dL Total Bilirubin 0.8 D (0.2-1.0) mg/dL AST 12 L (15-37) U/L ALT 23 (12-78) U/L Alkaline Phosphatase 57 (46-116) U/L NT-Pro-B Natriuret Pep 4517 H (5-450) pg/mL Total Protein 4.9 L (6.4-8.2) g/dL Albumin 2.5 L (3.4-5.0) g/dL Globulin 2.4 (2.3-3.5) g/dL Albumin/Globulin Ratio 1.0 L (1.2-2.2) Result Diagrams: 12/29/20 14:12 12/29/20 04:53 Sepsis Event Note - Evaluation Sepsis Screening Result: No Definite Risk - Focused Exam Vital Signs: Vital Signs Temp Pulse Pulse Resp BP BP BP 12/29/20 14:00 82 16 108/43 L 12/29/20 13:57 80 16 122/64 12/29/20 13:16 85 11 L 122/52 L 12/29/20 13:07 81 15 130/55 L 12/29/20 12:58 95.3 F L 82 15 140/57 L 12/29/20 12:01 58 L 20 74/38 L 12/29/20 11:42 59 L 20 62/34 L 12/29/20 11:28 62/40 L 12/29/20 11:09 97.8 F 77 16 68/42 L 12/29/20 09:14 82 110/70 12/29/20 07:29 98.4 F 57 L 16 102/64 12/29/20 03:00 95.9 F L 81 16 89/48 L Pulse Ox 12/29/20 14:00 97 12/29/20 13:57 98 12/29/20 13:16 96 12/29/20 13:07 97 12/29/20 12:58 98 12/29/20 12:01 98 12/29/20 11:42 95 12/29/20 11:28 12/29/20 11:09 94 L 12/29/20 09:14 12/29/20 07:29 94 L 12/29/20 03:00 93 L - Problem List Review Problem List Initiated/Reviewed/Updated: Yes - My Orders Last 24 Hours: My Active Orders 12/29/20 12:16 Patient Status [ADT] Routine 12/29/20 12:30 Norepinephrine [Levophed] 4 mg Dextrose 5% in Water 246 ml IV TITRATE 12/29/20 14:12 BASIC METABOLIC PANEL,BMP [CHEM] Stat TROPONIN I [CHEM] Stat 12/29/20 21:00 Propafenone [Rythmol] 225 mg PO BID - Plan Plan:: ASSESSMENT AND PLAN 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 Duggan -Postoperative care as per the surgical team Hyperactive delirium-much less confused and agitated over the past 3 days -Scheduled acetaminophen for pain control -Melatonin at bedtime -low-dose Depakote Rapid atrial fibrillation-rate control has improved with oral medications. -Metoprolol 25 mg every 12 hours -Propafenone 3 times a day -Additional rate control if indicated -Continue cardiac monitoring -We will need to reassess apixaban prior to hospital discharge Postoperative hypotension-he has developed recurrent hypotension, unresponsive to fluid bolus. May be secondary to medication effect. No evidence of active bleeding or developing infection. -Labs are pending -IV norepinephrine to maintain MAP of greater than 65 Anemia due to blood loss-he has had 5 units of blood total, 2 during surgery and 3 after surgery. Hemoglobin stable. -I would recommend a transfusion threshold of the hemoglobin less than 8 Acute kidney injury-creatinine has trended down with volume resuscitation after surgery. History of congestive heart failure-patient has mild evidence for volume overload. Furosemide ordered again today. Maintenance issues - -DVT prophylaxis-mechanical -GI prophylaxis-PPI -Nutrition-full liquids -Gan catheter-necessary for strict intake and output monitoring, reassess daily Disposition-I would anticipate discharge to the intermediate for subacute rehab after the hospital stay.
[2020-12-29] MEDS: Pantoprazole 40 MG Tab.CR PO SCH (15:00)
[2020-12-29] MEDS ORDERED: Potassium Chloride 20 MEQ Tab.ER PO ONE (16:00)
[2020-12-29] MEDS: Tamsulosin 0.4 MG Cap.ER PO SCH (21:05)
[2020-12-29] MEDS: Melatonin 3 MG Tab PO SCH (21:06)
--- NOTE | 2020-12-30 07:52 | PN ---
DATE OF SERVICE: 12/30/2020 SUBJECTIVE: Arnie was transferred to ICU yesterday afternoon. He had experienced hypotension. Blood pressures were somewhat borderline, but later his systolic pressures were in the 60 and he did not respond to fluid bolus. He has been in intensive care and he was started on infusion of norepinephrine with good results. His night was uneventful. Vital signs have been stable. He has not had any pain until this morning when he was turned on his right side and perineal incision was examined by Mohsen Duggan MD. He has increased pain with nursing cares which just started. He is alert in the fact that he answers questions appropriately. He does remain to have a cough. Remainder of review of systems negative for any pertinent positives and negatives. LABS: White count 10.5, hemoglobin is 9.4 and stable. BUN 47. Creatinine 1.7 which is down from 1.9. BNP 5308. OBJECTIVE: GENERAL: Arnie is a pleasant 89-year-old male. He is having quite a bit of pain after being turned. VITAL SIGNS: Last temp was 96.8 and pulse at 0600 hours is 93, respirations 15, blood pressure 121/58, and O2 by pulse oximetry is 92%. HEENT: Eyes are mattery this morning. NECK: Supple. HEART: Regular rate and rhythm. LUNGS: Revealed decreased breath sounds. Some rales in bases bilaterally. ABDOMEN: Negative. GENITOURINARY: Perineal incision examined by Dr. Duggan. He did suture the majority of his incision, but the medial part of the incision continues to leak an increased amount of serosanguineous drainage. Tissue is pretty friable. EXTREMITIES: Revealed 2+ peripheral edema. ASSESSMENT: 1. Hypotensive, resolved. 2. Exploratory laparotomy with: a. Anterior perineal repair. b. Mobilization of omentum, intraperitoneal mesh to displace small bowel from pelvis. POSTOPERATIVE DIAGNOSES: 1. Low rectal adenocarcinoma, status neoadjuvant chemoradiation treatment. Date of procedure: 12/21/2020. Surgeon: Mohsen Duggan MD. 2. Delayed primary closure for open abdominal incision. Date of procedure 12/23/2020. Surgeon: Mohsen Duggan MD. 3. Atrial fibrillation with rapid ventricular response, resolved. PLAN: 1. Portable chest x-ray. 2. Consult with speech pathologist for nursing staff reporting difficulty swallowing. 3. Check CBC, CMP, mag, phos, and BNP in a.m. 4. We will evaluate p.r.n. or in a.m. 5. Communication order to have 1% lidocaine with epi, suture kit from ER size 7 gloves and ChloraPrep swab at bedtime for Dr. Duggan to come to ICU when he is available to suture remainder of perineal incision. Tisha Crocker PA-C /[id number]
[2020-12-30] MEDS: Divalproex Sodium Delayed-Release 125 MG Cap.Sprink PO SCH ×2 (08:35→17:23)
[2020-12-30] MEDS ORDERED: Lidocaine 1% with EPINEPHrine 1:100,000 50 ML MDV INJECT ONE (09:00)
[2020-12-30] MEDS: Docusate Sodium 100 MG Cap PO SCH ×2 (09:10→21:19)
[2020-12-30] MEDS: Bisacodyl 5 MG Tab PO SCH ×2 (09:11→21:19)
[2020-12-30] MEDS: Aspirin 81 MG Tab.EC PO SCH (09:11)
[2020-12-30] MEDS: Acetaminophen 500 MG Tab PO SCH ×3 (09:11→21:17)
[2020-12-30] MEDS: atorvaSTATin 10 MG Tab PO SCH (09:12)
--- NOTE | 2020-12-30 09:53 | CR ---
CHEST: 2 view CLINICAL HISTORY:Cough, CHF COMPARISON:12/23/2020 FINDINGS: Free intraperitoneal air persists under the right hemidiaphragm. Heart is enlarged. Pulmonary vascular areas cephalized. Lung markings are mildly prominent but may be exaggerated by portable level. Right subclavian catheter ascends the right jugular vein. There are atherosclerotic changes in the aorta.. Impression: Limited study with poor inspiratory level Cardiomegaly with mild vascular cephalization may represent some pulmonary venous hypertension Persistent free intraperitoneal air Right subclavian catheter ascends the right jugular vein
[2020-12-30] MEDS: Dextrose 5%-Lactated Ringers 1,000 ML IV SCH (15:51)
[2020-12-30] MEDS: Pantoprazole 40 MG Tab.CR PO SCH (16:05)
--- NOTE | 2020-12-30 17:18 | PCM.PN ---
- General Info Date of Service: 12/30/20 Subjective Update: Mr. Infante has been stable since transfer to the intensive care unit yesterday because of hypotension. He is now off of norepinephrine. Much more alert today and interactive than he had been yesterday. Appetite seems to be improved and energy level also seems to be back on track with good improvement since yesterday. Functional Status: Reports: Tolerating Diet, Urinating - Review of Systems General: Reports: Weakness, Fatigue Pulmonary: Reports: No Symptoms Cardiovascular: Reports: No Symptoms Gastrointestinal: Reports: Abdominal Pain. Denies: Difficulty Swallowing, Hematochezia, Melena, Nausea, Vomiting Genitourinary: Reports: No Symptoms - Patient Data Vitals - Most Recent: Last Vital Signs Temp 97.4 F 12/30/20 16:00 Pulse 84 12/30/20 16:00 Resp 16 12/30/20 16:00 BP 111/51 L 12/30/20 16:00 Pulse Ox 95 12/30/20 16:00 Weight - Most Recent: 202 lb I&O - Last 24 Hours: Intake & Output 12/30/20 12/30/20 12/30/20 06:59 14:59 22:59 Intake Total 1833 400 Output Total 375 Balance 1833 400 -375 Lab Results Last 24 Hours: Laboratory Results - last 24 hr 12/30/20 12/30/20 Range/Units 04:05 04:05 WBC 10.5 (4.5-11.0) K/uL RBC 3.55 L (4.30-5.90) M/uL Hgb 9.4 L (12.0-15.0) g/dL Hct 31.0 L (40.0-54.0) % MCV 87 (80-98) fL MCH 27 (27-31) pg MCHC 30 L (32-36) % Plt Count 187 (150-400) K/uL Sodium 140 (140-148) mmol/L Potassium 3.7 (3.6-5.2) mmol/L Chloride 106 (100-108) mmol/L Carbon Dioxide 26 (21-32) mmol/L Anion Gap 7.8 (5.0-14.0) mmol/L BUN 47 H (7-18) mg/dL Creatinine 1.7 H (0.8-1.3) mg/dL Est Cr Clr Drug Dosing 31.01 mL/min Estimated GFR (MDRD) 38 L (>60) Glucose 114 H (74-106) mg/dL Calcium 8.1 L (8.5-10.1) mg/dL Phosphorus 3.5 (2.5-4.9) mg/dL Magnesium 3.5 H (1.8-2.4) mg/dL Total Bilirubin 0.7 (0.2-1.0) mg/dL AST 16 (15-37) U/L ALT 19 (12-78) U/L Alkaline Phosphatase 59 (46-116) U/L NT-Pro-B Natriuret Pep 5308 H (5-450) pg/mL Total Protein 4.7 L (6.4-8.2) g/dL Albumin 2.4 L (3.4-5.0) g/dL Globulin 2.3 (2.3-3.5) g/dL Albumin/Globulin Ratio 1.0 L (1.2-2.2) Med Orders - Current: Current Medications Acetaminophen (Acetaminophen 500 Mg Tab) 1,000 mg PO TID [facility] Last Admin: 12/30/20 14:06 Dose: 1,000 mg Documented by: Aspirin (Aspirin 81 Mg Tab.Ec) 81 mg PO DAILY [facility] Last Admin: 12/30/20 09:11 Dose: 81 mg Documented by: Atorvastatin Calcium (Atorvastatin 10 Mg Tab) 10 mg PO DAILY [facility] Last Admin: 12/30/20 09:12 Dose: 10 mg Documented by: Bisacodyl (Bisacodyl 5 Mg Tab) 10 mg PO BID [facility] Last Admin: 12/30/20 09:11 Dose: 10 mg Documented by: Diphenhydramine HCl (Diphenhydramine 25 Mg Cap) 25 mg PO Q4H PRN PRN Reason: Itching Last Admin: 12/25/20 16:21 Dose: 25 mg Documented by: Divalproex Sodium (Divalproex Sodium Delayed-Release 125 Mg Cap.Sprink) 125 mg PO BIDMEALS [facility] Last Admin: 12/30/20 08:35 Dose: 125 mg Documented by: Docusate Sodium (Docusate Sodium 100 Mg Cap) 100 mg PO BID [facility] Last Admin: 12/30/20 09:10 Dose: 100 mg Documented by: Haloperidol Lactate (Haloperidol Lactate 5 Mg/Ml Sdv) 5 mg IVPUSH Q2H PRN PRN Reason: Agitation Last Admin: 12/25/20 14:56 Dose: 5 mg Documented by: Heparin Sodium (Porcine) (Heparin Sodium 100 Units/Ml 5 Ml Syringe) 500 units FLUSH ASDIRECTED PRN PRN Reason: IV Use Last Admin: 12/30/20 12:44 Dose: 500 units Documented by: Hydroxyzine HCl (Hydroxyzine Hcl 100 Mg/2 Ml Sdv) 0 mg IM Q4H PRN PRN Reason: PAIN Last Admin: 12/25/20 04:28 Dose: 100 mg Documented by: Albumin Human (Albumin 25%) 25 gm in 100 mls @ 25 mls/hr IV DAILY [facility] Last Admin: 12/30/20 08:36 Dose: 25 mls/hr Documented by: Melatonin (Melatonin 3 Mg Tab) 9 mg PO BEDTIME [facility] Last Admin: 12/29/20 21:06 Dose: 9 mg Documented by: Ondansetron HCl (Ondansetron 4 Mg/2 Ml Sdv) 4 mg IVPUSH Q4H PRN PRN Reason: Nausea Pantoprazole Sodium (Pantoprazole 40 Mg Tab.Cr) 40 mg PO [facility]NER [facility] Last Admin: 12/30/20 16:05 Dose: 40 mg Documented by: Propafenone HCl (Propafenone 150 Mg Tab) 225 mg PO BID [facility] Last Admin: 12/30/20 09:08 Dose: 225 mg Documented by: Tamsulosin HCl (Tamsulosin 0.4 Mg Cap.Er) 0.4 mg PO BEDTIME [facility] Last Admin: 12/29/20 21:05 Dose: 0.4 mg Documented by: Tramadol HCl (Tramadol 50 Mg Tab) 50 mg PO Q6H PRN PRN Reason: Pain Last Admin: 12/25/20 16:21 Dose: 50 mg Documented by: Discontinued Medications Acetaminophen (Acetaminophen 500 Mg Tab) 1,000 mg PO ONETIME ONE Stop: 12/21/20 05:46 Last Admin: 12/21/20 06:20 Dose: 1,000 mg Documented by: Alvimopan (Alvimopan 12 Mg Capsule) 12 mg PO ONETIME ONE Stop: 12/21/20 06:37 Last Admin: 12/21/20 07:02 Dose: 12 mg Documented by: Alvimopan (Alvimopan 12 Mg Capsule) 12 mg PO Q12H [facility] Stop: 12/25/20 20:01 Last Admin: 12/25/20 20:55 Dose: Not Given Documented by: Bupivacaine HCl (Bupivacaine 0.5% 50 Ml Mdv) Confirm Administered Dose 50 ml .ROUTE .STK-MED ONE Stop: 12/21/20 06:40 Bupivacaine HCl (Bupivacaine 0.5% 50 Ml Mdv) Confirm Administered Dose 50 ml .ROUTE .STK-MED ONE Stop: 12/23/20 06:36 Last Admin: 12/23/20 09:57 Dose: 17.5 ml Documented by: Cefoxitin Sodium (Cefoxitin 2 Gm Vial) Confirm Administered Dose 2 gm .ROUTE .STK-MED ONE Stop: 12/21/20 12:39 Meropenem 500 mg/ Sodium (Chloride 750 ml) 0 mg .XX ONETIME ONE Stop: 12/21/20 07:16 Last Admin: 12/21/20 07:10 Dose: 700 cont Documented by: Ropivacaine 45 ml/Dexamethasone 8 mg/Epinephrine HCl 0.4 mg/ Sodium Chloride 32. 6 ml 0 ml NERVRT ASDIRECTED [facility] Last Admin: 12/23/20 08:36 Dose: 80 syringe Documented by: Dexamethasone (Dexamethasone 4 Mg/Ml Sdv) Confirm Administered Dose 4 mg .ROUTE .STK-MED ONE Stop: 12/21/20 07:13 Digoxin (Digoxin 500 Mcg/2 Ml Amp) 125 mcg IVPUSH ONETIME ONE Stop: 12/21/20 17:16 Last Admin: 12/21/20 17:15 Dose: 125 mcg Documented by: Digoxin (Digoxin 500 Mcg/2 Ml Amp) Confirm Administered Dose 500 mcg .ROUTE .STK-MED ONE Stop: 12/21/20 17:14 Last Admin: 12/21/20 17:27 Dose: Not Given Documented by: Fentanyl (Fentanyl 250 Mcg/5 Ml Sdv) Confirm Administered Dose 250 mcg .ROUTE .STK-MED ONE Stop: 12/21/20 07:12 Fentanyl (Fentanyl 100 Mcg/2 Ml Sdv) Confirm Administered Dose 100 mcg .ROUTE .STK-MED ONE Stop: 12/21/20 12:20 Fentanyl (Fentanyl 100 Mcg/2 Ml Sdv) Confirm Administered Dose 100 mcg .ROUTE .STK-MED ONE Stop: 12/21/20 14:19 Furosemide (Furosemide 20 Mg/2 Ml Vial) 20 mg IVPUSH ONETIME ONE Stop: 12/23/20 09:31 Last Admin: 12/23/20 10:20 Dose: 20 mg Documented by: Furosemide (Furosemide 20 Mg/2 Ml Vial) 20 mg IVPUSH Q6H [facility] Stop: 12/24/20 14:31 Last Admin: 12/24/20 14:02 Dose: 20 mg Documented by: Furosemide (Furosemide 40 Mg/4 Ml Vial) 40 mg IVPUSH ONETIME ONE Stop: 12/25/20 10:55 Last Admin: 12/25/20 11:13 Dose: 40 mg Documented by: Furosemide (Furosemide 20 Mg/2 Ml Vial) 20 mg IVPUSH Q8H [facility] Stop: 12/27/20 06:01 Last Admin: 12/27/20 06:15 Dose: 20 mg Documented by: Furosemide (Furosemide 20 Mg/2 Ml Vial) 20 mg IVPUSH BID [facility] Stop: 12/27/20 23:59 Last Admin: 12/27/20 20:12 Dose: 20 mg Documented by: Furosemide (Furosemide 20 Mg/2 Ml Vial) 20 mg IVPUSH ONETIME ONE Stop: 12/29/20 07:11 Last Admin: 12/29/20 07:52 Dose: 20 mg Documented by: Glycopyrrolate (Glycopyrrolate 0.2 Mg/Ml 5 Ml Mdv) Confirm Administered Dose 1 mg .ROUTE .STK-MED ONE Stop: 12/21/20 07:13 Haloperidol Lactate (Haloperidol Lactate 5 Mg/Ml Sdv) 2.5 mg IVPUSH Q4H PRN PRN Reason: Agitation Last Admin: 12/24/20 22:57 Dose: 2.5 mg Documented by: Heparin Sodium (Porcine) (Heparin Sodium 100 Units/Ml 5 Ml Syringe) Confirm Administered Dose 500 units .ROUTE .STK-MED ONE Stop: 12/23/20 06:56 Last Admin: 12/23/20 09:58 Dose: 500 units Documented by: Hydromorphone HCl (Hydromorphone/Normal Saline 15 Mg/30 Ml [place]) 15 mg IV ASD IRECTED PRN; Protocol PRN Reason: TUBE MAN PAIN CONTROL Last Admin: 12/23/20 09:50 Dose: 15 mg Documented by: Dextrose/Lactated Ringer's (Dextrose 5%-Lactated Ringers) 1,000 mls @ 100 mls/hr IV ASDIRECTED [facility] Last Admin: 12/21/20 06:20 Dose: 100 mls/hr Documented by: Cefoxitin Sodium 2 gm/ Sodium (Chloride) 50 mls @ 100 mls/hr IV ONETIME ONE Stop: 12/21/20 08:14 Last Admin: 12/21/20 07:52 Dose: 100 mls/hr Documented by: Linezolid (Zyvox) Confirm Administered Dose 300 mls @ as directed .ROUTE .ST- MED ONE Stop: 12/21/20 06:40 Fentanyl 2,500 mcg/ Sodium (Chloride) 250 mls @ 0 mls/hr EPIDUR TITRATE [facility]; Protocol Last Admin: 12/23/20 02:29 Dose: 8 mls/hr, 8 mls/hr Documented by: Sodium Chloride (Normal Saline) Confirm Administered Dose 10 mls @ as directed .ROUTE .ST-MED ONE Stop: 12/21/20 07:15 Sodium Chloride (Normal Saline) Confirm Administered Dose 10 mls @ as directed .ROUTE .[facility]-MED ONE Stop: 12/21/20 08:35 Lactated Ringer's (Ringers, Lactated) Confirm Administered Dose 1,000 mls @ as directed .ROUTE .ST-MED ONE Stop: 12/21/20 09:49 Linezolid (Zyvox) Confirm Administered Dose 300 mls @ as directed .ROUTE .ST- MED ONE Stop: 12/21/20 09:50 Sodium Chloride (Normal Saline) Confirm Administered Dose 10 mls @ as directed .ROUTE .[facility]-MED ONE Stop: 12/21/20 12:39 Lactated Ringer's (Ringers, Lactated) Confirm Administered Dose 1,000 mls @ as directed .ROUTE .ST-MED ONE Stop: 12/21/20 13:24 Dextrose/Lactated Ringer's (Dextrose 5%-Lactated Ringers) 1,000 mls @ 75 mls/hr IV ASDIRECTED [facility] Last Admin: 12/22/20 20:01 Dose: 100 mls/hr Documented by: Lactated Ringer's (Ringers, Lactated) 1,000 mls @ 100 mls/hr IV ASDIRECTED [facility] Last Admin: 12/22/20 08:31 Dose: 100 mls/hr Documented by: Cefoxitin Sodium 2 gm/ Sodium (Chloride) 50 mls @ 100 mls/hr IV Q6H [facility] Stop: 12/23/20 10:29 Last Admin: 12/23/20 10:28 Dose: 100 mls/hr Documented by: Lactated Ringer's (Ringers, Lactated) 500 mls @ 999 mls/hr IV ASDIRECTED [facility] Stop: 12/21/20 17:46 Last Admin: 12/21/20 17:10 Dose: 999 mls/hr Documented by: Lactated Ringer's (Ringers, Lactated) 500 mls @ 999 mls/hr IV ASDIRECTED [facility] Stop: 12/21/20 18:31 Last Admin: 12/21/20 18:00 Dose: 999 mls/hr Documented by: Norepinephrine Bitartrate 8 mg (/ Dextrose/Water) 258 mls @ 3.87 mls/hr IV TIT RATE [facility]; Protocol Last Infusion: 12/22/20 23:28 Dose: 2 mcg/min, 3.87 mls/hr Documented by: Magnesium Sulfate 2 gm/ Premix 50 mls @ 25 mls/hr IV Q6H [facility] Stop: 12/22/20 02:14 Last Admin: 12/21/20 23:50 Dose: 25 mls/hr Documented by: Esmolol HCl (Esmolol Hcl In Sterile Water 2,500 Mg/250 Ml) 250 mls @ 27.488 mls/hr IV TITRATE [facility]; Protocol Last Admin: 12/22/20 03:23 Dose: 300 mcg/kg/min, 164.927 mls/hr Documented by: Diltiazem HCl 100 mg/ Sodium (Chloride) 100 mls @ 5 mls/hr IV TITRATE [facility]; Protocol Last Titration: 12/22/20 09:58 Dose: 13 mg/hr, 13 mls/hr Documented by: Dextrose/Lactated Ringer's (Dextrose 5%-Lactated Ringers) 1,000 mls @ 25 mls/hr IV ASDIRECTED [facility] Last Admin: 12/23/20 17:44 Dose: 25 mls/hr Documented by: Lactated Ringer's (Ringers, Lactated) Confirm Administered Dose 1,000 mls @ as directed .ROUTE .K-MED ONE Stop: 12/23/20 07:39 Albumin Human (Albumin 25%) 25 gm in 100 mls @ 25 mls/hr IV Q24H [facility] Stop: 12/25/20 13:59 Last Admin: 12/25/20 10:47 Dose: 25 mls/hr Documented by: Potassium Phosphate 22.5 mmole (/ Sodium Chloride) 107.5 mls @ 27 mls/hr IV Q4H [facility] Stop: 12/23/20 18:59 Last Admin: 12/23/20 15:06 Dose: 27 mls/hr Documented by: Multivitamins/Minerals 10 ml/Zinc 1 ml/ Amino Ac/Electrol/Dextrose/Calcium 1,011 mls @ 82 mls/hr IV .BY DURATION [facility] Stop: 12/24/20 14:30 Last Admin: 12/23/20 13:46 Dose: 82 mls/hr Documented by: Amino Ac/Electrol/Dextrose/Calcium (Clinimix E 5/15) 1,000 mls @ 82 mls/hr IV .BY DURATION [facility] Stop: 12/24/20 14:30 Last Admin: 12/24/20 01:59 Dose: 82 mls/hr Documented by: Potassium Phosphate 22.5 mmole (/ Sodium Chloride) 107.5 mls @ 27 mls/hr IV Q4H [facility] Stop: 12/24/20 17:59 Last Admin: 12/24/20 15:27 Dose: 27 mls/hr Documented by: Multivitamins/Minerals 10 ml/Zinc 1 ml/ Amino Ac/Electrol/Dextrose/Calcium 1,011 mls @ 60 mls/hr IV .BY DURATION [facility] Last Admin: 12/26/20 02:54 Dose: 60 mls/hr Documented by: Amino Ac/Electrol/Dextrose/Calcium (Clinimix E 5/15) 1,000 mls @ 60 mls/hr IV .BY DURATION [facility] Last Admin: 12/26/20 20:04 Dose: 60 mls/hr Documented by: Magnesium Sulfate (Magnesium Sulfate In Water 2 Gm/50 Ml) 2 gm in 50 mls @ 25 mls/hr IV Q6H [facility] Stop: 12/29/20 04:29 Last Admin: 12/29/20 03:59 Dose: 25 mls/hr Documented by: Potassium Phosphate 22.5 mmole (/ Sodium Chloride) 107.5 mls @ 27 mls/hr IV Q4H [facility] Stop: 12/26/20 17:59 Last Admin: 09/26/21 13:24 Dose: 27 mls/hr Documented by: Dextrose/Lactated Ringer's (Dextrose 5%-Lactated Ringers) 1,000 mls @ 100 mls/hr IV ASDIRECTED [facility] Last Admin: 12/30/20 15:51 Dose: 100 mls/hr Documented by: Sodium Chloride (Normal Saline) 500 mls @ 500 mls/hr IV .BOLUS ONE Stop: 12/29/20 12:24 Last Admin: 12/29/20 11:33 Dose: 500 mls/hr Documented by: Norepinephrine Bitartrate 4 mg (/ Dextrose/Water) 250 mls @ 7.5 mls/hr IV TITRATE [facility]; Protocol Last Titration: 12/30/20 09:00 Dose: 0 mcg/min, 0 mls/hr Documented by: Lidocaine/Epinephrine (Lidocaine 1% With Epinephrine 1:100,000 50 Ml Mdv) Confirm Administered Dose 50 ml .ROUTE .STK-MED ONE Stop: 12/21/20 06:40 Lidocaine/Epinephrine (Lidocaine 1% With Epinephrine 1:100,000 50 Ml Mdv) Confirm Administered Dose 50 ml .ROUTE .STK-MED ONE Stop: 12/23/20 06:36 Last Admin: 12/23/20 09:58 Dose: 17.5 ml Documented by: Lidocaine/Epinephrine (Lidocaine 1% With Epinephrine 1:100,000 50 Ml Mdv) 50 ml INFILT ONETIME ONE Stop: 12/29/20 07:46 Last Admin: 12/29/20 09:12 Dose: 50 ml Documented by: Lidocaine/Epinephrine (Lidocaine 1% With Epinephrine 1:100,000 50 Ml Mdv) 0 ml INJECT ASDIRECTED ONE Stop: 12/30/20 09:01 Last Admin: 12/30/20 15:20 Dose: 10 ml Documented by: Linezolid (Linezolid 600 Mg/300 Ml Bag) 1,200 mg IRR .STK-MED ONE Stop: 12/21/20 09:59 Last Admin: 12/21/20 09:58 Dose: 1,200 mg Documented by: Meropenem (Meropenem 500 Mg Sdv) Confirm Administered Dose 500 mg .ROUTE .STK- MED ONE Stop: 12/21/20 06:40 Last Admin: 12/21/20 09:58 Dose: 1,000 mg Documented by: Meropenem (Meropenem 500 Mg Sdv) Confirm Administered Dose 500 mg .ROUTE .STK- MED ONE Stop: 12/21/20 09:50 Meropenem (Meropenem 500 Mg Sdv) Confirm Administered Dose 500 mg .ROUTE .STK- MED ONE Stop: 12/23/20 06:36 Last Admin: 12/23/20 09:59 Dose: 500 mg Documented by: Metoprolol Tartrate (Metoprolol Tartrate 25 Mg Tab) 12.5 mg PO BID [facility] Last Admin: 12/21/20 20:29 Dose: Not Given Documented by: Metoprolol Tartrate (Metoprolol Tartrate 5 Mg/5 Ml Sdv) 5 mg IVPUSH ONETIME ONE Stop: 12/21/20 17:01 Last Admin: 12/22/20 20:18 Dose: Not Given Documented by: Metoprolol Tartrate (Metoprolol Tartrate 5 Mg/5 Ml Sdv) 5 mg IVPUSH Q4H [facility] Last Admin: 12/21/20 19:37 Dose: 5 mg Documented by: Metoprolol Tartrate (Metoprolol Tartrate 25 Mg Tab) 25 mg PO Q12H [facility] Last Admin: 12/29/20 09:14 Dose: 25 mg Documented by: Midazolam HCl (Midazolam 1 Mg/Ml 2 Ml Sdv) 1 mg IVPUSH ONETIME ONE Stop: 12/23/20 05:54 Last Admin: 12/23/20 06:10 Dose: 1 mg Documented by: Midazolam HCl (Midazolam 1 Mg/Ml 2 Ml Sdv) 1 mg IV Q4H PRN PRN Reason: RESTLESSNESS Naloxone HCl (Naloxone 0.4 Mg/Ml Sdv) 0.1 mg IVPUSH Q5M PRN PRN Reason: RESP RATE LESS THAN 6/MINUTE Naloxone HCl (Naloxone 0.4 Mg/Ml Sdv) 0.4 mg IVPUSH ONETIME PRN PRN Reason: Itching Last Admin: 12/22/20 20:00 Dose: 0.4 mg Documented by: Naloxone HCl (Naloxone 0.4 Mg/Ml Sdv) 0.1 mg IV ASDIRECTED PRN PRN Reason: decreased respiratory rate Neostigmine Methylsulfate (Neostigmine Methylsulfate 1 Mg/Ml 5 Ml Syringe) Confirm Administered Dose 5 mg .ROUTE .STK-MED ONE Stop: 12/21/20 07:13 Scopolamine Patch (Check) 1 each TOP DAILY [facility] Last Admin: 12/25/20 11:58 Dose: Not Given Documented by: Non-Formulary Medication (Central Total Parenteral Nutrition Bag) 1,000 ml .XX .Continue Order [facility] Stop: 12/26/20 12:00 Non-Formulary Medication (Central Total Parenteral Nutrition Bag) 1,000 ml .XX .Continue Order [facility] Stop: 12/27/20 09:00 Ondansetron HCl (Ondansetron 4 Mg/2 Ml Sdv) Confirm Administered Dose 4 mg .ROUTE .STK-MED ONE Stop: 12/21/20 07:13 Pantoprazole Sodium (Pantoprazole 40 Mg Vial) 40 mg IV Q24H [facility] Last Admin: 12/23/20 15:13 Dose: 40 mg Documented by: Potassium Chloride (Potassium Chloride 20 Meq Tab.Er) 40 meq PO ONETIME ONE Stop: 12/26/20 06:58 Last Admin: 12/26/20 09:05 Dose: 40 meq Documented by: Potassium Chloride (Potassium Chloride 20 Meq Tab.Er) 40 meq PO ONETIME ONE Stop: 12/29/20 16:01 Last Admin: 12/29/20 16:56 Dose: 40 meq Documented by: Propafenone HCl (Propafenone 150 Mg Tab) 225 mg PO DAILY [facility] Last Admin: 12/22/20 08:41 Dose: Not Given Documented by: Propafenone HCl (Propafenone 150 Mg Tab) 225 mg PO TID [facility] Last Admin: 12/29/20 09:14 Dose: 225 mg Documented by: Propofol (Propofol 200 Mg/20 Ml Sdv) Confirm Administered Dose 200 mg .ROUTE .STK-MED ONE Stop: 12/21/20 07:13 Propofol (Propofol 200 Mg/20 Ml Sdv) Confirm Administered Dose 200 mg .ROUTE .STK-MED ONE Stop: 12/23/20 07:10 Propofol (Propofol 200 Mg/20 Ml Sdv) Confirm Administered Dose 200 mg .ROUTE . STK-MED ONE Stop: 12/23/20 08:05 Rocuronium [place] (Rocuronium 50 Mg/5 Ml Vial) Confirm Administered Dose 50 mg .ROUTE .STK-MED ONE Stop: 12/21/20 07:13 Rocuronium [place] (Rocuronium 50 Mg/5 Ml Vial) Confirm Administered Dose 50 mg .ROUTE .STK-MED ONE Stop: 12/21/20 09:03 Rocuronium [place] (Rocuronium 50 Mg/5 Ml Vial) Confirm Administered Dose 50 mg .ROUTE .STK-MED ONE Stop: 12/21/20 12:11 Scopolamine (Scopolamine 1.5 Mg Transdermal Patch) Confirm Administered Dose 1.5 mg .ROUTE .STK-MED ONE Stop: 12/21/20 08:29 Scopolamine (Scopolamine 1.5 Mg Transdermal Patch) 1.5 mg TOP Q72H [facility] Succinylcholine Chloride (Succinylcholine 200 Mg/10 Ml Mdv) Confirm Administered Dose 200 mg .ROUTE .STK-MED ONE Stop: 12/21/20 07:13 - Exam Central Line Total Time: 7Days 2Hours Urinary Catheter Total Time: 6Days 1Hours General: Alert, Oriented, Cooperative, Mild Distress Lungs: Clear to Auscultation, Normal Respiratory Effort Cardiovascular: Regular Rate, Regular Rhythm, No Murmurs GI/Abdominal Exam: Soft, No Organomegaly, Tender. No: Distended, Guarding, Rigid, Rebound Back Exam: Normal Inspection, Full Range of Motion Extremities: Non-Tender, No Pedal Edema - Patient Data Lab Results Last 24 hrs: Laboratory Results - last 24 hr 12/30/20 12/30/20 Range/Units 04:05 04:05 WBC 10.5 (4.5-11.0) K/uL RBC 3.55 L (4.30-5.90) M/uL Hgb 9.4 L (12.0-15.0) g/dL Hct 31.0 L (40.0-54.0) % MCV 87 (80-98) fL MCH 27 (27-31) pg MCHC 30 L (32-36) % Plt Count 187 (150-400) K/uL Sodium 140 (140-148) mmol/L Potassium 3.7 (3.6-5.2) mmol/L Chloride 106 (100-108) mmol/L Carbon Dioxide 26 (21-32) mmol/L Anion Gap 7.8 (5.0-14.0) mmol/L BUN 47 H (7-18) mg/dL Creatinine 1.7 H (0.8-1.3) mg/dL Est Cr Clr Drug Dosing 31.01 mL/min Estimated GFR (MDRD) 38 L (>60) Glucose 114 H (74-106) mg/dL Calcium 8.1 L (8.5-10.1) mg/dL Phosphorus 3.5 (2.5-4.9) mg/dL Magnesium 3.5 H (1.8-2.4) mg/dL Total Bilirubin 0.7 (0.2-1.0) mg/dL AST 16 (15-37) U/L ALT 19 (12-78) U/L Alkaline Phosphatase 59 (46-116) U/L NT-Pro-B Natriuret Pep 5308 H (5-450) pg/mL Total Protein 4.7 L (6.4-8.2) g/dL Albumin 2.4 L (3.4-5.0) g/dL Globulin 2.3 (2.3-3.5) g/dL Albumin/Globulin Ratio 1.0 L (1.2-2.2) Result Diagrams: 12/30/20 04:05 12/30/20 04:05 Sepsis Event Note - Evaluation Sepsis Screening Result: No Definite Risk - Focused Exam Vital Signs: Vital Signs Temp Temp Pulse Pulse Resp BP BP 12/30/20 16:00 97.4 F 84 16 111/51 L 12/30/20 14:00 83 18 114/61 12/30/20 13:00 81 16 108/50 L 12/30/20 12:00 97.6 F 79 14 103/47 L 12/30/20 11:00 78 16 97/48 L 12/30/20 10:00 86 20 98/49 L 12/30/20 09:08 109 H 12/30/20 09:00 96 18 117/63 12/30/20 08:00 98.0 F 88 19 110/56 L 12/30/20 07:00 85 20 116/51 L 12/30/20 06:00 93 15 121/58 L Pulse Ox 12/30/20 16:00 95 12/30/20 14:00 96 12/30/20 13:00 97 12/30/20 12:00 97 12/30/20 11:00 95 12/30/20 10:00 96 12/30/20 09:08 12/30/20 09:00 97 12/30/20 08:00 94 L 12/30/20 07:00 96 12/30/20 06:00 92 L - Problem List Review Problem List Initiated/Reviewed/Updated: Yes - My Orders Last 24 Hours: My Active Orders 12/29/20 21:00 Propafenone [Rythmol] 225 mg PO BID 12/30/20 16:25 Consult to Physical Therapy [PT Evaluation and Treatment] [CONS] Routine 12/30/20 17:12 Convert IV to Saline Lock [OM.PC] Routine - Plan Plan:: ASSESSMENT AND PLAN 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 daily -Additional rate control if indicated -Continue cardiac monitoring -We will need to reassess apixaban prior to hospital discharge Postoperative hypotension-resolved, likely secondary to medication effect Anemia due to blood loss-he has had 5 units of blood total, 2 during surgery and 3 after surgery. Hemoglobin stable. -I would recommend a transfusion threshold of the hemoglobin less than 8 Acute kidney injury-creatinine has trended down with volume resuscitation after surgery. History of congestive heart failure Maintenance issues - -DVT prophylaxis-mechanical -GI prophylaxis-PPI -Nutrition-full liquids -Gan catheter-necessary for strict intake and output monitoring, reassess daily Disposition-I would anticipate discharge to the skilled nursing for subacute rehab after the hospital stay.
[2020-12-30] MEDS: traMADol 50 MG Tab PO PRN (17:24)
[2020-12-30] MEDS: Melatonin 3 MG Tab PO SCH (21:18)
[2020-12-30] MEDS: Tamsulosin 0.4 MG Cap.ER PO SCH (21:18)
[2020-12-31] MEDS: traMADol 50 MG Tab PO PRN (05:45)
[2020-12-31] MEDS: Divalproex Sodium Delayed-Release 125 MG Cap.Sprink PO SCH (10:13)
[2020-12-31] MEDS: atorvaSTATin 10 MG Tab PO SCH (10:13)
[2020-12-31] MEDS: Aspirin 81 MG Tab.EC PO SCH (10:16)
[2020-12-31] MEDS: Acetaminophen 500 MG Tab PO SCH (10:17)
[2020-12-31 13:19] VITALS: BP 115/66; PULSE 97
== END 2020-12-31 13:29 | DRG 330 ==
LOC: JP.SDS 05:19 → JP.SDSSCHI 05:19 → EDSTATUS 11:15 → JP.ICU 15:45 → JP.MS 12-24 14:35 → JP.ICU 12-29 12:16
PROVIDERS: ADMIT Surgery; ATTEND Surgery
PROC: 0DTN0ZZ Resection of Sigmoid Colon, Open Approach (ICD-10-PCS; principal; 2020-12-21)
PROC: 0DBW0ZZ Excision of Peritoneum, Open Approach (ICD-10-PCS; 2020-12-21)
PROC: 0DTP0ZZ Resection of Rectum, Open Approach (ICD-10-PCS; 2020-12-21)
PROC: 3E0M05Z Introduction of Adhesion Barrier into Peritoneal Cavity, Open Approach (ICD-10-PCS; 2020-12-21)
PROC: 0HQ7XZZ Repair Abdomen Skin, External Approach (ICD-10-PCS; 2020-12-23)
DX: C20 Malignant neoplasm of rectum (principal); N17.9 Acute kidney failure, unspecified; D62 Acute posthemorrhagic anemia; I95.81 Postprocedural hypotension; R41.0 Disorientation, unspecified; I11.0 Hypertensive heart disease with heart failure; I50.9 Heart failure, unspecified; I25.10 Atherosclerotic heart disease of native coronary artery without angina pectoris; I48.91 Unspecified atrial fibrillation; M19.90 Unspecified osteoarthritis, unspecified site; E78.00 Pure hypercholesterolemia, unspecified; Z20.822 Contact with and (suspected) exposure to COVID-19; E66.9 Obesity, unspecified; G47.30 Sleep apnea, unspecified; Z96.659 Presence of unspecified artificial knee joint; Z79.82 Long term (current) use of aspirin; Z91.030 Bee allergy status; Z79.899 Other long term (current) drug therapy; Z79.01 Long term (current) use of anticoagulants; Z95.2 Presence of prosthetic heart valve; I25.2 Old myocardial infarction; Z86.16 Personal history of COVID-19; Z98.49 Cataract extraction status, unspecified eye; Z88.8 Allergy status to other drugs, medicaments and biological substances; Z88.5 Allergy status to narcotic agent; Z87.891 Personal history of nicotine dependence; Z68.29 Body mass index [BMI] 29.0-29.9, adult
CPT/HCPCS: 36415; 36430; 71045; 71045-26; 71046; 71046-26; 80048; 80053; 83735; 83880; 84100; 84484; 85025; 85027; 86850; 86900; 86901; 86920; 86922; 88341; 92610-GN; 93005; 94762; 97110-GO; 97110-GP; 97162-GP; 97165-GO; 97530-GP; A9270-GY; C9113; J0171; J0330; J0694; J1100; J1160; J1170; J1630; J1642; J1940; J2020; J2185; J2250; J2310; J2405; J2704; J2710; J2795; J3010; J3410; J3475; J3490; J7040; J7050; J7060; J7120; J7121; P9016; P9047; U0002

== ENCOUNTER 2021-01-05 14:41 | Inpatient (IN) | payer MEDICARE, OTHER ==
[2021-01-05] MEDS ORDERED: Ondansetron 4 MG/2 ML SDV IVPUSH PRN (15:09)
[2021-01-05] MEDS ORDERED: Lactated Ringers 1,000 ML IV SCH (15:15)
--- NOTE | 2021-01-05 16:57 | CRLCT ---
For Patients: As a result of the Century Cures Act, medical imaging exams and procedure reports are released immediately into your electronic medical record. You may view this report before your referring provider. If you have questions, please contact your health care provider. INDICATION: Post abdominal peroneal resection. Increased peritoneal drainage. TECHNIQUE: CT abdomen and pelvis without contrast. COMPARISON: 06/03/2020. FINDINGS: Lower chest: Unremarkable. Liver: Normal in size and attenuation. No suspicious masses. Gallbladder and bile ducts: No stones or inflammation. No biliary dilatation. Pancreas: Unremarkable. No mass or inflammation. Spleen: Normal in size. No masses. Adrenal glands: Normal in size. No nodules. Kidneys: Mild bilateral hydronephrosis. No stones or suspicious masses. GI tract: There are postoperative changes in the peroneal region and rectum. Mild edema and soft tissue thickening present in this area. No defined fluid collection. Left frontal colostomy is unremarkable. GI tract otherwise within normal limits in caliber and appearance. Vasculature: Aortic atherosclerosis without aneurysm. Lymph nodes: No lymphadenopathy. Abdominal wall/Omentum/Peritoneum: No intra-abdominal free air or fluid collection. Moderate generalized anasarca. Pelvis: Moderate prostate gland enlargement. Generalized wall thickening of the urinary bladder. There is also diffuse edema in the scrotal sac. Bones: Unremarkable for age. IMPRESSION: 1. Relatively large amount of fluid/edema in the scrotal sac. Otherwise no abscess, hematoma, or other fluid collection to explain increased peritoneal drainage post surgery. 2. Diffuse wall thickening of the urinary bladder could represent acute or chronic cystitis. Mild bilateral renal hydronephrosis is likely secondary to this wall thickening. 3. No other acute or significant findings. Dictated by Cameron Yanes MD @ 01/05/2021 4:54:05 PM Please note that all CT scans at this facility use dose modulation, iterative reconstruction, and/or weight-based dosing when appropriate to reduce radiation dose to as low as reasonably achievable. Dictated by: Cameron Yanes MD @ 01/05/2021 16:55:27 (Electronically Signed)
[2021-01-05] MEDS: Acetaminophen 500 MG Tab PO SCH ×2 (18:00→21:17)
[2021-01-05] MEDS ORDERED: Lidocaine 2% Jelly 10 ML Urojet ONE (18:50)
[2021-01-06] MEDS ORDERED: Lactated Ringers 1,000 ML IV SCH (07:30)
[2021-01-06] MEDS: Potassium Phos in 0.9 % NaCl 15 MMOL in Premix Bag 1 BAG IV SCH ×4 (08:39→11:20)
--- NOTE | 2021-01-06 08:41 | PCM.CONS ---
H&P History of Present Illness - General Date of Service: 01/06/21 Admit Problem/Dx: Admission Diagnosis/Problem Admission Diagnosis/Problem Weakness Source of Information: Patient, Provider History Limitations: Reports: No Limitations - History of Present Illness Initial Comments - Free Text/Narative: CC: covid + HPI: Arnie was admitted yesterday from the surgical clinic for management of failure to thrive and drainage from the previous surgical site. He is somewhat confused today and does not provide much in the way of reliable history. He is able to tell me that he does not currently have any pain. He is not sure if he feels short of breath or not. He says that he has not been coughing but nursing has noted some intermittent coughing. For the most part he lays in bed and is lethargic. Dr. Duggan reported that he has not progressed well after surgery. When he was seen in clinic there was concern that with the drainage there may be some intraperitoneal process so he was admitted to the hospital for more work- up. CT scan did not show any impressive abnormalities in the abdomen. His Covid testing was positive. The shelter reports that he had been tested with a rapid test the day before and this was negative. Generalized Pain Score (Numeric/FACES): 3 - Related Data Allergies/Adverse Reactions: Allergies Allergy/AdvReac Type Severity Reaction Status Date / Time venom-honey bee Allergy Severe Anaphylactic Verified 12/21/20 06:09 [bee venom (honey bee)] Shock propoxyphene HCl AdvReac Nausea and Verified 12/21/20 06:09 [From Darvon] Vomiting Home Medications: Home Meds Simvastatin [Zocor] 20 mg PO DAILY 02/17/13 [History] Multivit-Min/FA/Lycopen/Lutein [Centrum Silver Men Tablet] 1 each PO DAILY 03/05/20 [History] Magnesium Oxide 400 mg PO BID #60 tablet 06/04/20 [Rx] Potassium Chloride [Klor-Con M20] 40 meq PO DAILY #60 tab.er 06/04/20 [Rx] Capecitabine [Xeloda] 3 tab PO ASDIRECTED 08/09/20 [History] Ferrous Sulfate 325 mg PO DAILY 08/09/20 [History] Prochlorperazine Maleate [Compazine] 10 mg PO Q6H PRN 08/09/20 [History] Aspirin [Ecotrin EC] 81 mg PO DAILY 12/17/20 [History] Diphenoxylate HCl/Atropine [Lomotil] 2 tab PO QID 12/17/20 [History] Lactobacillus Rhamnosus GG [Culturelle] 1 cap PO BID 12/17/20 [History] Pantoprazole [ProTONIX] 40 mg PO DAILY 12/17/20 [History] Trolamine Salicylate [Ultracin T] 1 applic TOP ASDIRECTED 12/17/20 [History] atorvaSTATin [Lipitor] 10 mg PO DAILY 12/17/20 [History] Propafenone HCl 225 mg PO BID #60 tablet 12/31/20 [Rx] traMADol [Ultram] 50 mg PO Q6H PRN #20 tablet 12/31/20 [Rx] Past Medical History HEENT History: Reports: Cataract, Macular Degeneration Cardiovascular History: Reports: Afib, CAD, High Cholesterol, Hypertension, [place], Other (See Below) Other Cardiovascular History: Aortic valve sclerosis Respiratory History: Reports: Sleep Apnea Other Respiratory History: c-pap Gastrointestinal History: Reports: None Genitourinary History: Reports: Other (See Below) Other Genitourinary History: nocturia penile and scrotal edema noted. Musculoskeletal History: Reports: Arthritis, Other (See Below) Other Musculoskeletal History: carpal tunnel syndrome Neurological History: Reports: Other (See Below) Endocrine/Metabolic History: Reports: Obesity/BMI 30+ Other Endocrine/Metabolic History: impaired fasting glucose Hematologic History: Reports: Anemia Oncologic (Cancer) History: Reports: Colon, Other (See Below) 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 - Infectious Disease History Infectious Disease History: Reports: Chicken Pox, Measles, Mumps, Novel Coronavirus, Pertussis (Whooping Cough), Shingles - Past Surgical History Head Surgeries/Procedures: Reports: None HEENT Surgical History: Reports: Cataract Surgery, Oral Surgery, Other (See Below) Other HEENT Surgeries/Procedures: dentures Cardiovascular Surgical History: Reports: None, Valve Replacement Respiratory Surgical History: Reports: None GI Surgical History: Reports: Hernia Repair/Other Male Surgical History: Reports: None Endocrine Surgical History: Reports: None Musculoskeletal Surgical History: Reports: Knee Replacement Other Musculoskeletal Surgeries/Procedures:: right and left Oncologic Surgical History: Reports: None, Other (See Below) Other Oncologic Surgeries/Procedures: recent apr surgery 12/2020 Dermatological Surgical History: Reports: None Social & Family History - Family History Family Medical History: No Pertinent Family History - Tobacco Use Tobacco Use Status *Q: Unknown Ever Used Tobacco - Caffeine Use Caffeine Use: Reports: Coffee - Alcohol Use Alcohol Use History: No Alcohol Use in Last Twelve Months: No H&P Review of Systems - Review of Systems: Review Of Systems: Unable To Obtain Reason Not Obtained: Patient lethargic and minimally interactive Exam - Exam Exam: See Below - Vital Signs Vital Signs: Last Vital Signs Temp 36.4 C 01/06/21 05:03 Pulse 112 H 01/06/21 05:03 Resp 22 H 01/06/21 05:03 BP 117/75 01/06/21 05:03 Pulse Ox 95 01/06/21 05:03 Weight: 95.3 kg - Exam Quality Assessment: No: Supplemental Oxygen General: Alert, Cooperative, Lethargic. No: Oriented, Mild Distress HEENT: Conjunctiva Clear. No: Mucosa Moist & [place] (dry), Scleral Icterus Neck: Supple, Trachea Midline. No: Lymphadenopathy Lungs: Clear to Auscultation, Normal Respiratory Effort Cardiovascular: Irregular Rhythm, Tachycardia. No: Systolic Murmur GI/Abdominal Exam: Normal Bowel Sounds, Soft, No Distention, Other (ostomy left lower abd with green/black stool ) Extremities: No Pedal Edema (no edema left ankle ), Pedal Edema (mild right ankle ). No: Joint Swelling, Increased Warmth Skin: Warm, Dry Neuro Extensive - Mental Status: Alert, Nl Response to Commands. No: Oriented x3 Neuro Extensive - Motor, Sensory, Reflexes: No: Dysarthria, Tremor Psychiatric: Alert, Normal Affect - Patient Data Lab Results Last 24 hrs: Laboratory Results - last 24 hr 01/05/21 01/05/21 01/05/21 Range/Units 14:49 14:50 17:52 WBC 12.7 H (4.5-11.0) K/uL RBC 3.47 L (4.30-5.90) M/uL Hgb 9.5 L (12.0-15.0) g/dL Hct 31.3 L (40.0-54.0) % MCV 90 (80-98) fL MCH 27 (27-31) pg MCHC 30 L (32-36) % Plt Count 244 (150-400) K/uL Neut % (Auto) 87.5 H (36-66) % Lymph % (Auto) 3.3 L (24-44) % [place] % (Auto) 8.9 H (2-6) % Eos % (Auto) 0.2 L (2-4) % Baso % (Auto) 0.1 (0-1) % Sodium 137 L (140-148) mmol/L Potassium 5.7 H (3.6-5.2) mmol/L Chloride 103 (100-108) mmol/L Carbon Dioxide 23 (21-32) mmol/L Anion Gap 16.7 H (5.0-14.0) mmol/L BUN 28 H (7-18) mg/dL Creatinine 1.4 H (0.8-1.3) mg/dL Est Cr Clr Drug Dosing TNP Estimated GFR (MDRD) 48 L (>60) Glucose 116 H (74-106) mg/dL Calcium 9.0 (8.5-10.1) mg/dL Phosphorus 2.3 L (2.5-4.9) mg/dL Magnesium 1.9 D (1.8-2.4) mg/dL Total Bilirubin 0.4 (0.2-1.0) mg/dL AST 50 H D (15-37) U/L ALT 41 D (12-78) U/L Alkaline Phosphatase 83 (46-116) U/L NT-Pro-B Natriuret Pep 5150 H (5-450) pg/mL Total Protein 5.2 L (6.4-8.2) g/dL Albumin 2.1 L (3.4-5.0) g/dL Globulin 3.1 (2.3-3.5) g/dL Albumin/Globulin Ratio 0.7 L (1.2-2.2) SARS-CoV-2 RNA (GENI) Positive H (NEGATIVE) 01/06/21 01/06/21 Range/Units 03:50 03:50 WBC 9.9 (4.5-11.0) K/uL RBC 3.24 L (4.30-5.90) M/uL Hgb 8.8 L (12.0-15.0) g/dL Hct 28.5 L (40.0-54.0) % MCV 88 (80-98) fL MCH 27 (27-31) pg MCHC 31 L (32-36) % Plt Count 201 (150-400) K/uL Neut % (Auto) 85.5 H (36-66) % Lymph % (Auto) 3.7 L (24-44) % [place] % (Auto) 9.7 H (2-6) % Eos % (Auto) 1.0 L (2-4) % Baso % (Auto) 0.1 (0-1) % Sodium 138 L (140-148) mmol/L Potassium 4.7 (3.6-5.2) mmol/L Chloride 105 (100-108) mmol/L Carbon Dioxide 27 (21-32) mmol/L Anion Gap 10.7 (5.0-14.0) mmol/L BUN 24 H (7-18) mg/dL Creatinine 1.2 (0.8-1.3) mg/dL Est Cr Clr Drug Dosing 37.01 Estimated GFR (MDRD) 57 L (>60) Glucose 105 (74-106) mg/dL Calcium 8.9 (8.5-10.1) mg/dL Phosphorus 2.2 L (2.5-4.9) mg/dL Magnesium 1.6 L (1.8-2.4) mg/dL Total Bilirubin 0.3 (0.2-1.0) mg/dL AST 52 H (15-37) U/L ALT 46 (12-78) U/L Alkaline Phosphatase 76 (46-116) U/L NT-Pro-B Natriuret Pep 2869 H (5-450) pg/mL Total Protein 4.5 L (6.4-8.2) g/dL Albumin 1.8 L (3.4-5.0) g/dL Globulin 2.7 (2.3-3.5) g/dL Albumin/Globulin Ratio 0.7 L (1.2-2.2) SARS-CoV-2 RNA (GNEI) (NEGATIVE) Result Diagrams: 01/06/21 03:50 01/06/21 03:50 Imaging Impressions Last 24 hrs: CT of the abdomen and pelvis-images personally reviewed-no definite discrete abscess or fluid collection other than significant edema involving the scrotum. No definite abscess in the scrotum. There is diffuse bladder wall thickening and mild bilateral hydronephrosis. Status post left-sided colectomy with colostomy formation. Sepsis Event Note - Evaluation Sepsis Screening Result: Sepsis Risk - Focused Exam Vital Signs: Vital Signs Temp Pulse Pulse Resp BP Pulse Ox 01/06/21 05:03 36.4 C 112 H 22 H 117/75 95 01/06/21 03:00 36.3 C 112 H 18 131/53 L 98 01/06/21 00:59 96 01/05/21 23:34 36.7 C 98 18 95/40 L 97 01/05/21 21:18 99 *Q Meaningful Use (ADM) - VTE Risk Assess *Q Each Risk Factor Represents 1 Point: Obesity ( BMI > 25 kg/m2), Serious lung disease including pneumonia Total Score 1 Point Risk Factors: 2 Each Risk Factor Represents 2 Points: Malignancy (present or previous) Total Score 2 Point Risk Factors: 2 Each Risk Factor Represents 3 Points: Age 75 Years or Greater Total Score 3 Point Risk Factors: 3 Each Risk Factor Represents 5 Points: None Total Score 5 Point Risk Factors: 0 Venous Thromboembolism Risk Factor Score *Q: 7 Consult PN Assessment/Plan Procedures: Procedures AGENT NOS ASSAY W/OPTIC (04/06/20) AIRWAY INHALATION TREATMENT (05/25/20) ASSAY OF CK (CPK) (03/14/20) ASSAY OF FERRITIN (03/05/20) ASSAY OF LACTIC ACID (05/30/20) ASSAY OF MAGNESIUM (12/21/20) ASSAY OF NATRIURETIC PEPTIDE (12/21/20) ASSAY OF PHOSPHORUS (12/21/20) ASSAY OF TROPONIN QUANT (12/21/20) BLOOD CULTURE FOR BACTERIA (04/06/20) BLOOD TRANSFUSION SERVICE (12/21/20) BLOOD TYPING SEROLOGIC ABO (12/21/20) BLOOD TYPING SEROLOGIC RH(D) (12/21/20) C DIFF AMPLIFIED PROBE (03/14/20) C-REACTIVE PROTEIN (04/06/20) CARCINOEMBRYONIC ANTIGEN (05/30/20) CARPAL TUNNEL SURGERY (02/18/13) COMPATIBILITY TEST ANTIGLOB (12/21/20) COMPATIBILITY TEST SPIN (12/21/20) COMPLETE CBC AUTOMATED (12/21/20) COMPLETE CBC W/AUTO DIFF WBC (12/21/20) COMPREHEN METABOLIC PANEL (12/21/20) CT ABD & PELV W/CONTRAST (05/30/20) CT ANGIOGRAPHY CHEST (05/28/20) CT THORAX DX C+ (05/30/20) CULTURE SCREEN ONLY (05/30/20) ELECTROCARDIOGRAM REPORT (03/14/20) ELECTROCARDIOGRAM TRACING (12/21/20) EMERGENCY DEPT VISIT (08/09/20) EMERGENCY DEPT VISIT (05/25/20) EMERGENCY DEPT VISIT (05/25/20) EMERGENCY DEPT VISIT (04/06/20) EMERGENCY DEPT VISIT (04/06/20) EMERGENCY DEPT VISIT (10/07/18) EVALUATE SWALLOWING FUNCTION (12/21/20) EXTREMITY STUDY (05/27/20) FIBRIN DEGRADATION QUANT (03/05/20) HEMOGLOBIN (05/30/20) HEPATIC FUNCTION PANEL (03/14/20) HOSPITAL DISCHARGE DAY (03/14/20) HOSPITAL DISCHARGE DAY (03/05/20) HYDRATE IV INFUSION ADD-ON (10/07/18) IMMUNOHISTO ANTB 1ST STAIN (05/30/20) IMMUNOHISTO ANTB ADDL SLIDE (12/21/20) INITIAL HOSPITAL CARE (03/05/20) INSERT TEMP BLADDER CATH (03/14/20) LACTATE (LD) (LDH) ENZYME (03/05/20) LEUKOCYTE ASSESSMENT FECAL (04/06/20) MEASURE BLOOD OXYGEN LEVEL (12/21/20) METABOLIC PANEL TOTAL CA (12/21/20) OCCULT BLD FECES 1-3 TESTS (05/30/20) OCCULT BLOOD FECES (04/06/20) OT EVAL LOW COMPLEX 30 MIN (12/21/20) PROCALCITONIN (PCT) (04/06/20) PROTHROMBIN TIME (03/05/20) PT EVAL MOD COMPLEX 30 MIN (12/21/20) RBC ANTIBODY SCREEN (12/21/20) ROUTINE VENIPUNCTURE (12/21/20) SELF CARE MNGMENT TRAINING (05/30/20) STOOL CULTR AEROBIC BACT EA (04/06/20) SUBSEQUENT HOSPITAL CARE (03/14/20) SUBSEQUENT HOSPITAL CARE (03/14/20) SUBSEQUENT HOSPITAL CARE (03/05/20) SUBSEQUENT HOSPITAL CARE (03/05/20) THER/PROPH/DIAG INJ IV PUSH (10/07/18) THER/PROPH/DIAG IV INF ADDON (03/14/20) THER/PROPH/DIAG IV INF INIT (08/09/20) THERAPEUTIC ACTIVITIES (12/21/20) THERAPEUTIC EXERCISES (12/21/20) TISSUE EXAM BY PATHOLOGIST (05/30/20) TTE W/DOPPLER COMPLETE (05/30/20) TX/PRO/DX INJ NEW DRUG ADDON (03/05/20) TX/PRO/DX INJ SAME DRUG RADIO MACHINIST (03/14/20) TX/PROPH/DG ADDL SEQ IV INF (03/14/20) URINALYSIS AUTO W/SCOPE (08/09/20) URINE CULTURE/COLONY COUNT (03/05/20) US EXAM ABDOM COMPLETE (03/14/20) X-RAY EXAM CHEST 1 VIEW (12/21/20) X-RAY EXAM CHEST 2 VIEWS (12/21/20) X-RAY EXAM OF SHOULDER (03/14/20) Problem List Initiated/Reviewed/Updated: Yes My Orders Last 24 Hours: My Active Orders 01/06/21 09:00 Propafenone [Rythmol] 225 mg PO TID 01/07/21 04:00 CRP [C-REACTIVE PROTEIN] [CHEM] Timed D-DIMER QUANTITATIVE [COAG] Timed Plan: ASSESSMENT AND RECOMMENDATIONS- Covid positive-minimally symptomatic at this time. Not hypoxic and not febrile. He has had a high risk for progression to severe illness given his age and weakened immune system in the setting of recent surgery and malignancy. I think he would benefit from monoclonal antibiotic therapy to help reduce his risk for progression to severe illness. -Administer monoclonal antibodies -Covid isolation (positive test on 01/05) -Monitor for evidence of progression of disease hypoxia fever -Minimize IV fluids as much as possible or preferably avoid Rectal cancer status post APR-not progressing very well following surgery. Mod erate scrotal edema but no evidence for abscess or infection. Albumin is less than 2. -Management per surgical team Chronic atrial fibrillation with borderline rapid ventricular response-blood pressure is borderline limiting medications that we can use. He is on propafenone and had been on metoprolol in the past as well. -Propafenone 3 times a day -Consider beta-donya if needed -Cardiac monitoring Normocytic anemia-probably related to recent surgery. No active evidence for blood loss. Transfusion has been requested. -I would encourage a transfusion threshold of less than 8 and less hem odynamically unstable Probable urinary tract infection-urinalysis suggestive of infection with packed RBCs and white blood cells. This could explain some of the weakness and lethargy. -Empiric ceftriaxone -Follow-up urine culture Antonio Washington MD Requesting Provider: Dr. Duggan Date Consult Requested: 01/06/21 Reason for Consult: Covid testing positive Patient History Reviewed: Yes Admission H&P Reviewed: No (Not available) Notified Requestor: No Time Spent (in minutes): 60
[2021-01-06] MEDS: Potassium Chloride 20 MEQ Tab.ER PO SCH (08:45)
[2021-01-06] MEDS: Acetaminophen 500 MG Tab PO SCH ×5 (08:45→22:19)
[2021-01-06] MEDS: Pantoprazole 40 MG Tab.CR PO SCH (08:45)
[2021-01-06] MEDS: Lactobacillus Rhamnosus GG (Probiotic) Cap PO SCH (08:45)
[2021-01-06] MEDS ORDERED: Magnesium Sulfate/Water 2 GM in Premix Bag 1 BAG IV SCH ×2 (10:00→14:00)
[2021-01-06] MEDS ORDERED: EPINEPHrine 1 MG/ML SDV IM PRN (13:00)
[2021-01-06] MEDS ORDERED: [UNRECOGNIZED DRUG - OTHER] SUBCUT ONE (13:00)
[2021-01-06] MEDS ORDERED: diphenhydrAMINE 50 MG/ML SDV IVPUSH PRN (13:00)
[2021-01-06] MEDS ORDERED: Acetaminophen 325 MG Tab PO PRN (13:00)
[2021-01-06] MEDS ORDERED: Famotidine 20 MG/2 ML SDV IV PRN (13:00)
[2021-01-06] MEDS ORDERED: methylPREDNISolone Sodium Succinate 125 MG/2 ML SDV IVPUSH PRN (13:00)
[2021-01-06] MEDS ORDERED: [UNRECOGNIZED DRUG - OTHER] SUBCUT ONE (13:00)
[2021-01-06] MEDS: cefTRIAXone 2 GM in Sodium Chloride 0.9% 50 ML IV SCH (13:45)
[2021-01-06] MEDS: Morphine 2 MG/ML SYRINGE IVPUSH PRN (15:03)
[2021-01-06] MEDS: Metoprolol Tartrate 5 MG/5 ML SDV IVPUSH SCH ×2 (16:30→21:21)
[2021-01-06] MEDS ORDERED: Acetaminophen 1,000 MG in Premix Bag 1 BAG IV PRN (19:13)
[2021-01-07] MEDS: Metoprolol Tartrate 5 MG/5 ML SDV IVPUSH SCH ×3 (04:44→16:22)
[2021-01-07] MEDS ORDERED: fentaNYL 100 MCG/2 ML SDV ONE (06:51)
[2021-01-07] MEDS ORDERED: Neostigmine Methylsulfate 1 MG/ML 5 ML Syringe ONE (06:53)
[2021-01-07] MEDS ORDERED: Dexamethasone 4 MG/ML SDV ONE (06:53)
[2021-01-07] MEDS ORDERED: Glycopyrrolate 0.2 MG/ML 5 ML MDV ONE (06:53)
[2021-01-07] MEDS ORDERED: Propofol 200 MG/20 ML SDV ONE (06:53)
[2021-01-07] MEDS ORDERED: Ondansetron 4 MG/2 ML SDV ONE (06:53)
[2021-01-07] MEDS ORDERED: Rocuronium 50 MG/5 ML Vial ONE (06:53)
[2021-01-07] MEDS ORDERED: Bupivacaine 0.5% 50 ML MDV ONE (07:02)
[2021-01-07] MEDS ORDERED: Lidocaine 1% with EPINEPHrine 1:100,000 50 ML MDV ONE (07:02)
--- NOTE | 2021-01-07 07:09 | PN ---
DATE OF SERVICE: 01/06/2021 The patient was admitted yesterday with more of a picture of failure to thrive and still having quite a large amount of purulent drainage. This is likely related to general edematous state in the lower abdomen, the scrotum, and the whole pelvic area is quite edematous, so I think that is probably what we are dealing with along with a tenuous closure. His COVID test did come back positive. He had COVID last fall, and this probably accounts at least to some extent for his overall general failure to thrive type look. He remains only minimally communicative and still somewhat confused. Otherwise, he is not requiring any exogenous oxygen. He does have some crackles in the bases. Vital signs otherwise have been stable with no fever. Labs show somewhat low hemoglobin at 8.8. We will give him 1 unit of packed RBCs today. Chemistries show a stable creatinine at 1.2 and glucose is 105. Phosphate and magnesium are marginally low. These will be supplemented. BNP is down somewhat from overnight. His Gan catheter output remains satisfactory. BNP has dropped spontaneously from 5100 to 2800 overnight. The albumin is low, and we will give him some albumin over the next several days. Otherwise, we will have Dr. Washington do a general medical assessment today. We will plan to proceed with opening of the peritoneal wound tomorrow, placement of some drains in that area to control the drainage and try to close as securely as possible to allow that to heal without ongoing drainage. We will also place a central line at that time. Mohsen Duggan MD /[id number]
[2021-01-07] MEDS ORDERED: Meropenem 500 MG SDV ONE (08:32)
--- NOTE | 2021-01-07 10:06 | CRLCR ---
For Patients: As a result of the Century Cures Act, medical imaging exams and procedure reports are released immediately into your electronic medical record. You may view this report before your referring provider. If you have questions, please contact your health care provider. INDICATION: Post triple-lumen insertion. TECHNIQUE: Chest 1 view. COMPARISON: Chest radiograph 12/30/2020. FINDINGS: Interval repositioning of the right subclavian CVC which now forms a loop over the right clavicle with tip at the brachiocephalic junction. Low lung volumes with bibasilar atelectasis. No pleural effusion or pneumothorax. Stable cardiomegaly with prominent central pulmonary vascularity. TAVR. Degenerative changes of the shoulders. IMPRESSION: 1. Repositioning of the right subclavian CVC which now forms a loop over the right clavicle with tip at the brachiocephalic junction. 2. Low lung volumes with bibasilar atelectasis. 3. Stable cardiomegaly with prominent central pulmonary vascularity. Dictated by Tisha William MD @ 01/07/2021 10:05:40 AM (Electronically Signed)
[2021-01-07] MEDS ORDERED: Lactated Ringers 1,000 ML IV SCH (10:30)
[2021-01-07] MEDS: Lactobacillus Rhamnosus GG (Probiotic) Cap PO SCH (10:46)
[2021-01-07] MEDS: Pantoprazole 40 MG Tab.CR PO SCH (10:46)
[2021-01-07] MEDS: Acetaminophen 500 MG Tab PO PRN (11:29)
[2021-01-07] MEDS: Acetaminophen 500 MG Tab PO SCH (11:48)
[2021-01-07] MEDS ORDERED: Haloperidol Lactate 5 MG/ML SDV IVPUSH PRN (13:10)
--- NOTE | 2021-01-07 13:12 | PCM.CONSN ---
- General Info Date of Service: 01/07/21 Subjective Update: There were no acute events overnight. Patient has not needed supplemental oxygen. He is confused today but he is much more alert and interactive. He does not report any abdominal pain. He does not feel short of breath. He did go to the operating room this morning for debridement of some necrosis in the rectum. A central line was placed and TPN will be started. Atrial fibrillation has been fairly well controlled with the IV metoprolol. He has not done very well taking his oral medications but intermittently he has been taking his propafenone. No fevers. Tolerated monoclonal antibody infusion well yesterday. Functional Status: Reports: Pain Controlled - Review of Systems General: Denies: Fever Neurological: Reports: Confusion - Patient Data Vitals - Most Recent: Last Vital Signs Temp 35.5 C L 01/07/21 12:48 Pulse 101 H 01/07/21 12:48 Resp 19 01/07/21 12:48 BP 134/77 01/07/21 12:48 Pulse Ox 100 01/07/21 12:48 Weight - Most Recent: 95.254 kg I&O - Last 24 Hours: Intake & Output 01/06/21 01/07/21 01/07/21 22:59 06:59 14:59 Intake Total 580 730 273 Output Total 1395 610 350 Balance -815 120 -77 Lab Results Last 24 Hours: Laboratory Results - last 24 hr 01/06/21 01/07/21 01/07/21 Range/Units 09:34 04:00 04:00 WBC 10.2 (4.5-11.0) K/uL RBC 3.32 L (4.30-5.90) M/uL Hgb 9.1 L (12.0-15.0) g/dL Hct 29.4 L (40.0-54.0) % MCV 89 (80-98) fL MCH 27 (27-31) pg MCHC 31 L (32-36) % Plt Count 202 (150-400) K/uL D-Dimer, Quantitative (0.0-500.0) ng/mL Sodium 140 (140-148) mmol/L Potassium 4.3 (3.6-5.2) mmol/L Chloride 106 (100-108) mmol/L Carbon Dioxide 27 (21-32) mmol/L Anion Gap 7.5 (5.0-14.0) mmol/L BUN 19 H (7-18) mg/dL Creatinine 1.1 (0.8-1.3) mg/dL Est Cr Clr Drug Dosing 40.38 mL/min Estimated GFR (MDRD) > 60 (>60) Glucose 79 (74-106) mg/dL Calcium 8.9 (8.5-10.1) mg/dL Phosphorus 3.0 (2.5-4.9) mg/dL Magnesium 2.0 (1.8-2.4) mg/dL Total Bilirubin 0.4 (0.2-1.0) mg/dL AST 43 H (15-37) U/L ALT 41 (12-78) U/L Alkaline Phosphatase 83 (46-116) U/L C-Reactive Protein 16.18 H (0.0-0.3) mg/dL NT-Pro-B Natriuret Pep 3396 H (5-450) pg/mL Total Protein 4.4 L (6.4-8.2) g/dL Albumin 2.0 L (3.4-5.0) g/dL Globulin 2.4 (2.3-3.5) g/dL Albumin/Globulin Ratio 0.8 L (1.2-2.2) Blood Type A NEGATIVE Gel Antibody Screen Negative Crossmatch See Detail 01/07/21 Range/Units 04:00 WBC (4.5-11.0) K/uL RBC (4.30-5.90) M/uL Hgb (12.0-15.0) g/dL Hct (40.0-54.0) % MCV (80-98) fL MCH (27-31) pg MCHC (32-36) % Plt Count (150-400) K/uL D-Dimer, Quantitative 5898.22 H (0.0-500.0) ng/mL Sodium (140-148) mmol/L Potassium (3.6-5.2) mmol/L Chloride (100-108) mmol/L Carbon Dioxide (21-32) mmol/L Anion Gap (5.0-14.0) mmol/L BUN (7-18) mg/dL Creatinine (0.8-1.3) mg/dL Est Cr Clr Drug Dosing mL/min Estimated GFR (MDRD) (>60) Glucose (74-106) mg/dL Calcium (8.5-10.1) mg/dL Phosphorus (2.5-4.9) mg/dL Magnesium (1.8-2.4) mg/dL Total Bilirubin (0.2-1.0) mg/dL AST (15-37) U/L ALT (12-78) U/L Alkaline Phosphatase (46-116) U/L C-Reactive Protein (0.0-0.3) mg/dL NT-Pro-B Natriuret Pep (5-450) pg/mL Total Protein (6.4-8.2) g/dL Albumin (3.4-5.0) g/dL Globulin (2.3-3.5) g/dL Albumin/Globulin Ratio (1.2-2.2) Blood Type Gel Antibody Screen Crossmatch Brock Results Last 24 Hours: Microbiology 01/07/21 08:56 Gram Stain - Final Thigh, Right 01/06/21 09:04 Urine Culture - Preliminary Urine, Gan Cath ([place]) MIXED POSITIVE ABDOULAYE DAY 1 Med Orders - Current: Current Medications Acetaminophen (Acetaminophen 500 Mg Tab) 1,000 mg PO Q8H PRN PRN Reason: PAIN Last Admin: 01/07/21 11:29 Dose: 1,000 mg Documented by: Furosemide (Furosemide 20 Mg/2 Ml Vial) 20 mg IVPUSH ONETIME ONE Stop: 01/07/21 14:01 Haloperidol Lactate (Haloperidol Lactate 5 Mg/Ml Sdv) 2.5 mg IVPUSH Q4H PRN PRN Reason: Agitation Albumin Human (Albumin 25%) 25 gm in 100 mls @ 25 mls/hr IV Q24H MARCELO Stop: 01/09/21 19:59 Last Admin: 01/06/21 16:31 Dose: 25 mls/hr Documented by: Ceftriaxone Sodium 2 gm/ (Sodium Chloride) 50 mls @ 100 mls/hr IV Q24H MARCELO Stop: 01/07/21 16:00 Last Admin: 01/06/21 13:45 Dose: 100 mls/hr Documented by: Lactated Ringer's (Ringers, Lactated) 1,000 mls @ 25 mls/hr IV ASDIRECTED MARCELO Multivitamins/Minerals 10 ml/Zinc 1 ml/ Amino Ac/Electrol/Dextrose/Calcium 1,011 mls @ 82 mls/hr IV .BY DURATION [facility] Amino Ac/Electrol/Dextrose/Calcium (Clinimix E 08/14) 1,000 mls @ 82 mls/hr IV . BY DURATION [facility] Lactobacillus Rhamnosus (Lactobacillus Rhamnosus Gg (Probiotic) Cap) 2 cap PO DAILY [facility] Last Admin: 01/07/21 10:46 Dose: Not Given Documented by: Melatonin (Melatonin 3 Mg Tab) 9 mg PO BEDTIME [facility] Metoprolol Tartrate (Metoprolol Tartrate 5 Mg/5 Ml Sdv) 5 mg IVPUSH Q6H [facility] Last Admin: 01/07/21 10:37 Dose: 5 mg Documented by: Morphine Sulfate (Morphine 2 Mg/Ml Syringe) 2 mg IVPUSH Q2H PRN PRN Reason: Pain Last Admin: 01/06/21 15:03 Dose: 2 mg Documented by: Ondansetron HCl (Ondansetron 4 Mg/2 Ml Sdv) 4 mg IVPUSH Q4H PRN PRN Reason: Nausea Pantoprazole Sodium (Pantoprazole 40 Mg Tab.Cr) 40 mg PO ACBREAKFAST [facility] Last Admin: 01/07/21 10:46 Dose: Not Given Documented by: Potassium Chloride (Potassium Chloride 20 Meq Tab.Er) 40 meq PO DAILY [facility] Last Admin: 01/06/21 08:45 Dose: 40 meq Documented by: Propafenone HCl (Propafenone 150 Mg Tab) 225 mg PO TID [facility] Last Admin: 01/07/21 10:46 Dose: Not Given Documented by: Discontinued Medications Acetaminophen (Acetaminophen 500 Mg Tab) 1,000 mg PO TID [facility] Last Admin: 01/07/21 11:48 Dose: Not Given Documented by: Acetaminophen (Acetaminophen 325 Mg Tab) 650 mg PO ONETIME PRN PRN Reason: HEADACHE,CHILLS Stop: 01/06/21 21:00 Bupivacaine HCl (Bupivacaine 0.5% 50 Ml Mdv) Confirm Administered Dose 50 ml .ROUTE .STK-MED ONE Stop: 01/07/21 07:03 Dexamethasone (Dexamethasone 4 Mg/Ml Sdv) Confirm Administered Dose 4 mg .ROUTE .STK-MED ONE Stop: 01/07/21 06:54 Diphenhydramine HCl (Diphenhydramine 50 Mg/Ml Sdv) 50 mg IVPUSH ONETIME PRN PRN Reason: ALLERGIC RXN Stop: 01/06/21 21:00 Epinephrine HCl (Epinephrine 1 Mg/Ml Sdv) 0.3 mg IM ONETIME PRN PRN Reason: ALLERGIC RXN Stop: 01/06/21 21:00 Famotidine (Famotidine 20 Mg/2 Ml Sdv) 20 mg IV ONETIME PRN PRN Reason: ALLERGIC RXN Stop: 01/06/21 21:00 Fentanyl (Fentanyl 100 Mcg/2 Ml Sdv) Confirm Administered Dose 100 mcg .ROUTE .STK-MED ONE Stop: 01/07/21 06:52 Glycopyrrolate (Glycopyrrolate 0.2 Mg/Ml 5 Ml Mdv) Confirm Administered Dose 1 mg .ROUTE .STK-MED ONE Stop: 01/07/21 06:54 Heparin Sodium (Porcine) (Heparin Sodium 100 Units/Ml 5 Ml Syringe) Confirm Administered Dose 500 units .ROUTE .STK-MED ONE Stop: 01/07/21 07:03 Lactated Ringer's (Ringers, Lactated) 1,000 mls @ 100 mls/hr IV ASDIRECTED MARCELO Lactated Ringer's (Ringers, Lactated) 1,000 mls @ 40 mls/hr IV ASDIRECTED [facility] Potassium Phosphate 15 mmol/ (Premix) 250 mls @ 85 mls/hr IV Q3H MARCELO Stop: 01/06/21 13:57 Last Admin: 01/06/21 11:20 Dose: 85 mls/hr Documented by: Magnesium Sulfate 2 gm/ Premix 50 mls @ 25 mls/hr IV Q6H MARCELO Stop: 01/06/21 17:59 Last Admin: 01/06/21 09:15 Dose: 25 mls/hr Documented by: Magnesium Sulfate 2 gm/ Premix 50 mls @ 25 mls/hr IV Q6H MARCELO Stop: 01/06/21 15:59 Last Admin: 01/06/21 14:23 Dose: 25 mls/hr Documented by: Acetaminophen 1,000 mg/ Premix 100 mls @ 400 mls/hr IV Q8H PRN PRN Reason: Pain Stop: 01/07/21 19:14 Last Admin: 01/07/21 04:55 Dose: 400 mls/hr Documented by: Lidocaine HCl (Lidocaine 2% Jelly 10 Ml Urojet) Confirm Administered Dose 10 ml .ROUTE .STK-MED ONE Stop: 01/05/21 18:51 Last Admin: 01/05/21 19:33 Dose: Not Given Documented by: Lidocaine/Epinephrine (Lidocaine 1% With Epinephrine 1:100,000 50 Ml Mdv) Confirm Administered Dose 50 ml .ROUTE .STK-MED ONE Stop: 01/07/21 07:03 Methylprednisolone Sodium Succinate (Methylprednisolone Sodium Succinate 125 Mg/2 Ml Sdv) 125 mg IVPUSH ONETIME PRN PRN Reason: ALLERGIC RXN Stop: 01/06/21 21:00 Neostigmine Methylsulfate (Neostigmine Methylsulfate 1 Mg/Ml 5 Ml Syringe) Confirm Administered Dose 5 mg .ROUTE .STK-MED ONE Stop: 01/07/21 06:54 Non-Formulary Medication (Casirivimab 120 Mg/Ml Vial) 600 mg SUBCUT ONETIME ONE Stop: 01/06/21 13:01 Last Admin: 01/06/21 12:57 Dose: 600 mg Documented by: Non-Formulary Medication (Imdevimab 120 Mg/Ml Vial) 600 mg SUBCUT ONETIME ONE Stop: 01/06/21 13:01 Last Admin: 01/06/21 12:57 Dose: 600 mg Documented by: Ondansetron HCl (Ondansetron 4 Mg/2 Ml Sdv) Confirm Administered Dose 4 mg .ROUTE .STK-MED ONE Stop: 01/07/21 06:54 Propafenone HCl (Propafenone 150 Mg Tab) 225 mg PO BID MARCELO Last Admin: 01/05/21 21:18 Dose: 225 mg Documented by: Propofol (Propofol 200 Mg/20 Ml Sdv) Confirm Administered Dose 200 mg .ROUTE .STK-MED ONE Stop: 01/07/21 06:54 Rocuronium [place] (Rocuronium 50 Mg/5 Ml Vial) Confirm Administered Dose 50 mg .ROUTE .STK-MED ONE Stop: 01/07/21 06:54 - Exam Quality Assessment: No: Supplemental Oxygen Urinary Catheter Total Time: 1Days 11Hours General: Alert, Cooperative, No Acute Distress. No: Oriented Lungs: Clear to Auscultation, Normal Respiratory Effort Cardiovascular: Regular Rate, Irregular Rhythm, Other (central line right upper chest ) GI/Abdominal Exam: Normal Bowel Sounds, Soft, Non-Tender, No Distention Extremities: No Pedal Edema. No: Increased Warmth Skin: Warm, Dry Psy/Mental Status: Alert, Normal Affect. No: Agitated Sepsis Event Note - Evaluation Sepsis Screening Result: Sepsis Risk - Focused Exam Vital Signs: Vital Signs Temp Temp Pulse Pulse Resp BP BP 01/07/21 12:48 35.5 C L 101 H 19 134/77 01/07/21 12:31 36.1 C 98 15 146/65 H 01/07/21 12:00 36.1 C 88 13 143/62 H 01/07/21 11:30 36.1 C 85 15 114/63 01/07/21 11:16 35.9 C L 82 15 98/66 01/07/21 11:00 35.9 C L 35.9 C L 83 16 88/58 L 01/07/21 10:46 77 01/07/21 10:45 35.9 C L 92 13 100/67 01/07/21 10:37 86 104/62 01/07/21 10:30 36.2 C 85 13 104/62 01/07/21 10:15 35.9 C L 89 13 104/58 L 01/07/21 10:02 37 C 94 14 106/52 L 01/07/21 09:43 36.1 C 101 H 16 109/64 01/07/21 09:25 114 H 15 106/54 L 01/07/21 09:20 113 H 15 112/84 01/07/21 09:15 115 H 15 115/75 01/07/21 09:10 112 H 15 106/70 01/07/21 04:46 80 18 132/56 L 01/07/21 04:44 89 132/56 L 01/07/21 03:00 36.8 C 78 16 114/48 L Pulse Ox 01/07/21 12:48 100 01/07/21 12:31 100 01/07/21 12:00 01/07/21 11:30 100 01/07/21 11:16 93 L 01/07/21 11:00 100 01/07/21 10:46 01/07/21 10:45 97 01/07/21 10:37 01/07/21 10:30 97 01/07/21 10:15 96 01/07/21 10:02 95 01/07/21 09:43 95 01/07/21 09:25 94 L 01/07/21 09:20 99 01/07/21 09:15 99 01/07/21 09:10 95 01/07/21 04:46 96 01/07/21 04:44 01/07/21 03:00 98 Consult PN Assessment/Plan Procedures: Procedures AGENT NOS ASSAY W/OPTIC (04/06/20) AIRWAY INHALATION TREATMENT (05/25/20) ASSAY OF CK (CPK) (03/14/20) ASSAY OF FERRITIN (03/05/20) ASSAY OF LACTIC ACID (05/30/20) ASSAY OF MAGNESIUM (12/21/20) ASSAY OF NATRIURETIC PEPTIDE (12/21/20) ASSAY OF PHOSPHORUS (12/21/20) ASSAY OF TROPONIN QUANT (12/21/20) BLOOD CULTURE FOR BACTERIA (04/06/20) BLOOD TRANSFUSION SERVICE (12/21/20) BLOOD TYPING SEROLOGIC ABO (12/21/20) BLOOD TYPING SEROLOGIC RH(D) (12/21/20) C DIFF AMPLIFIED PROBE (03/14/20) C-REACTIVE PROTEIN (04/06/20) CARCINOEMBRYONIC ANTIGEN (05/30/20) CARPAL TUNNEL SURGERY (02/18/13) COMPATIBILITY TEST ANTIGLOB (12/21/20) COMPATIBILITY TEST SPIN (12/21/20) COMPLETE CBC AUTOMATED (12/21/20) COMPLETE CBC W/AUTO DIFF WBC (12/21/20) COMPREHEN METABOLIC PANEL (12/21/20) CT ABD & PELV W/CONTRAST (05/30/20) CT ANGIOGRAPHY CHEST (05/28/20) CT THORAX DX C+ (05/30/20) CULTURE SCREEN ONLY (05/30/20) ELECTROCARDIOGRAM REPORT (03/14/20) ELECTROCARDIOGRAM TRACING (12/21/20) EMERGENCY DEPT VISIT (08/09/20) EMERGENCY DEPT VISIT (05/25/20) EMERGENCY DEPT VISIT (05/25/20) EMERGENCY DEPT VISIT (04/06/20) EMERGENCY DEPT VISIT (04/06/20) EMERGENCY DEPT VISIT (10/07/18) EVALUATE SWALLOWING FUNCTION (12/21/20) EXTREMITY STUDY (05/27/20) FIBRIN DEGRADATION QUANT (03/05/20) HEMOGLOBIN (05/30/20) HEPATIC FUNCTION PANEL (03/14/20) HOSPITAL DISCHARGE DAY (03/14/20) HOSPITAL DISCHARGE DAY (03/05/20) HYDRATE IV INFUSION ADD-ON (10/07/18) IMMUNOHISTO ANTB 1ST STAIN (05/30/20) IMMUNOHISTO ANTB ADDL SLIDE (12/21/20) INITIAL HOSPITAL CARE (03/05/20) INSERT TEMP BLADDER CATH (03/14/20) LACTATE (LD) (LDH) ENZYME (03/05/20) LEUKOCYTE ASSESSMENT FECAL (04/06/20) MEASURE BLOOD OXYGEN LEVEL (12/21/20) METABOLIC PANEL TOTAL CA (12/21/20) OCCULT BLD FECES 1-3 TESTS (05/30/20) OCCULT BLOOD FECES (04/06/20) OT EVAL LOW COMPLEX 30 MIN (12/21/20) PROCALCITONIN (PCT) (04/06/20) PROTHROMBIN TIME (03/05/20) PT EVAL MOD COMPLEX 30 MIN (12/21/20) RBC ANTIBODY SCREEN (12/21/20) ROUTINE VENIPUNCTURE (12/21/20) SELF CARE MNGMENT TRAINING (05/30/20) STOOL CULTR AEROBIC BACT EA (04/06/20) SUBSEQUENT HOSPITAL CARE (03/14/20) SUBSEQUENT HOSPITAL CARE (03/14/20) SUBSEQUENT HOSPITAL CARE (03/05/20) SUBSEQUENT HOSPITAL CARE (03/05/20) THER/PROPH/DIAG INJ IV PUSH (10/07/18) THER/PROPH/DIAG IV INF ADDON (03/14/20) THER/PROPH/DIAG IV INF INIT (08/09/20) THERAPEUTIC ACTIVITIES (12/21/20) THERAPEUTIC EXERCISES (12/21/20) TISSUE EXAM BY PATHOLOGIST (05/30/20) TTE W/DOPPLER COMPLETE (05/30/20) TX/PRO/DX INJ NEW DRUG ADDON (03/05/20) TX/PRO/DX INJ SAME DRUG FOUNDRY LABORER COREROOM (03/14/20) TX/PROPH/DG ADDL SEQ IV INF (03/14/20) URINALYSIS AUTO W/SCOPE (08/09/20) URINE CULTURE/COLONY COUNT (03/05/20) US EXAM ABDOM COMPLETE (03/14/20) X-RAY EXAM CHEST 1 VIEW (12/21/20) X-RAY EXAM CHEST 2 VIEWS (12/21/20) X-RAY EXAM OF SHOULDER (03/14/20) Problem List Initiated/Reviewed/Updated: Yes My Orders Last 24 Hours: My Active Orders 01/06/21 13:30 cefTRIAXone [Rocephin] 2 gm Sodium Chloride 0.9% [Normal Saline] 50 ml IV Q24H 01/06/21 14:37 Morphine 2 mg IVPUSH Q2H PRN 01/06/21 16:00 Metoprolol Tartrate [Lopressor] 5 mg IVPUSH Q6H 01/07/21 13:10 Haloperidol Lactate [Haldol] 2.5 mg IVPUSH Q4H PRN 01/07/21 21:00 Melatonin 9 mg PO BEDTIME Plan: ASSESSMENT AND RECOMMENDATIONS- Covid positive-minimally symptomatic at this time. Not hypoxic and not febrile. He tolerated monoclonal antibodies and hopefully will not progress to severe illness. 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 Had repeat surgery today to clean up some necrosis in the rectum. Triple-lumen catheter placed. -Management per surgical team Chronic atrial fibrillation with borderline rapid ventricular response-heart rate has been fairly well controlled with IV metoprolol. Intermittently taking his propafenone but not consistently. -IV metoprolol scheduled -Propafenone 3 times a day if he is able to take it -Cardiac monitoring Normocytic anemia-probably related to recent surgery. No active evidence for blood loss. Transfusion has been requested. -I would encourage a transfusion threshold of less than 8 unless hemodynamically unstable Probable urinary tract infection-urinalysis suggestive of infection with packed RBCs and white blood cells. This could explain some of the weakness and lethargy. Culture growing mixed abdoulaye so far. -Empiric ceftriaxone today, reassess antibiotics tomorrow -Follow-up urine culture Antonio Washington MD
[2021-01-07] MEDS: Potassium Chloride 20 MEQ Tab.ER PO SCH (13:32)
[2021-01-07] MEDS: cefTRIAXone 2 GM in Sodium Chloride 0.9% 50 ML IV SCH (13:51)
[2021-01-07] MEDS ORDERED: Furosemide 20 MG/2 ML VIAL IVPUSH ONE (14:00)
[2021-01-07] MEDS: 1: AA 5%/Calcium/D15W/Lytes 1,000 ML with MVI, Adult with Vitamin K 10 ML, Zinc/Copper/M IV SCH ×3 (14:54)
[2021-01-07] MEDS: Melatonin 3 MG Tab PO SCH (20:15)
[2021-01-08] MEDS: Metoprolol Tartrate 5 MG/5 ML SDV IVPUSH SCH ×3 (00:05→11:23)
[2021-01-08] MEDS: 1: AA 5%/Calcium/D15W/Lytes 1,000 ML with MVI, Adult with Vitamin K 10 ML, Zinc/Copper/M IV SCH ×6 (03:45→16:18)
[2021-01-08] MEDS: Acetaminophen 500 MG Tab PO PRN (04:30)
[2021-01-08] MEDS: Pantoprazole 40 MG Tab.CR PO SCH (08:25)
[2021-01-08] MEDS: traMADol 50 MG Tab PO PRN ×2 (08:25→14:38)
[2021-01-08] MEDS: Furosemide 20 MG/2 ML VIAL IVPUSH SCH ×2 (10:32→14:39)
[2021-01-08] MEDS: Doxycycline 100 MG in Sodium Chloride 0.9% 100 ML IV SCH ×2 (10:39→20:18)
--- NOTE | 2021-01-08 10:49 | PCM.CONSN ---
- General Info Date of Service: 01/08/21 Subjective Update: No acute events overnight. Vital signs have been stable. Atrial fibrillation has been well controlled with the IV metoprolol. Patient has started to take pills again. He had a dressing change for the rectal wound and this was quite uncomfortable this morning. Gram stain from tissue collected yesterday revealed gram positive cocci and gram-negative rods and his culture today is growing by both of these things. He does not report any pain. He reports no shortness of breath. Urine in the Gan catheter is clear. He has been pleasantly confused and redirectable so far. Functional Status: Reports: Pain Controlled, Tolerating Diet - Review of Systems General: Reports: Weakness Neurological: Reports: Confusion - Patient Data Vitals - Most Recent: Last Vital Signs Temp 36.3 C 01/08/21 07:00 Pulse 75 01/08/21 08:26 Resp 16 01/08/21 07:00 BP 149/63 H 01/08/21 07:00 Pulse Ox 97 01/08/21 07:18 Weight - Most Recent: 95.254 kg I&O - Last 24 Hours: Intake & Output 01/07/21 01/08/21 01/08/21 22:59 06:59 14:59 Intake Total 567 967 Output Total 1285 705 Balance -718 262 Lab Results Last 24 Hours: Laboratory Results - last 24 hr 01/06/21 01/08/21 01/08/21 Range/Units 09:34 04:20 04:20 WBC 7.5 (4.5-11.0) K/uL RBC 3.56 L (4.30-5.90) M/uL Hgb 10.0 L (12.0-15.0) g/dL Hct 31.6 L (40.0-54.0) % MCV 89 (80-98) fL MCH 28 (27-31) pg MCHC 32 (32-36) % Plt Count 207 (150-400) K/uL Sodium 140 (140-148) mmol/L Potassium 4.0 (3.6-5.2) mmol/L Chloride 105 (100-108) mmol/L Carbon Dioxide 24 (21-32) mmol/L Anion Gap 10.7 (5.0-14.0) mmol/L BUN 25 H (7-18) mg/dL Creatinine 1.0 (0.8-1.3) mg/dL Est Cr Clr Drug Dosing 44.42 mL/min Estimated GFR (MDRD) > 60 (>60) Glucose 179 H (74-106) mg/dL Calcium 9.2 (8.5-10.1) mg/dL Phosphorus 2.9 (2.5-4.9) mg/dL Magnesium 1.9 (1.8-2.4) mg/dL Total Bilirubin 0.3 (0.2-1.0) mg/dL AST 27 (15-37) U/L ALT 36 (12-78) U/L Alkaline Phosphatase 87 (46-116) U/L NT-Pro-B Natriuret Pep 6741 H (5-450) pg/mL Total Protein 4.9 L (6.4-8.2) g/dL Albumin 2.2 L (3.4-5.0) g/dL Globulin 2.7 (2.3-3.5) g/dL Albumin/Globulin Ratio 0.8 L (1.2-2.2) Crossmatch See Detail Brokc Results Last 24 Hours: Microbiology 01/07/21 08:56 Gram Stain - Final Thigh, Right Wound Culture - Preliminary Anaerobic Culture - Preliminary 01/06/21 09:04 Urine Culture - Final Urine, Gan Cath (Indwelling) Viridans Streptococcus Med Orders - Current: Current Medications Acetaminophen (Acetaminophen 500 Mg Tab) 1,000 mg PO Q8H PRN PRN Reason: PAIN Last Admin: 01/08/21 04:30 Dose: 1,000 mg Documented by: Furosemide (Furosemide 20 Mg/2 Ml Vial) 20 mg IVPUSH Q6H MARCELO Stop: 01/08/21 15:01 Last Admin: 01/08/21 10:32 Dose: 20 mg Documented by: Haloperidol Lactate (Haloperidol Lactate 5 Mg/Ml Sdv) 2.5 mg IVPUSH Q4H PRN PRN Reason: Agitation Heparin Sodium (Porcine) (Heparin Sodium 100 Units/Ml 5 Ml Syringe) 300 units FLUSH ASDIRECTED PRN PRN Reason: IV Use Last Admin: 01/07/21 14:49 Dose: 300 units Documented by: Albumin Human (Albumin 25%) 25 gm in 100 mls @ 25 mls/hr IV Q24H MARCELO Stop: 01/09/21 19:59 Last Admin: 01/07/21 16:21 Dose: 25 mls/hr Documented by: Lactated Ringer's (Ringers, Lactated) 1,000 mls @ 25 mls/hr IV ASDIRECTED [facility] Last Admin: 01/07/21 14:52 Dose: 25 mls/hr Documented by: Multivitamins/Minerals 10 ml/Zinc 1 ml/ Amino Ac/Electrol/Dextrose/Calcium 1 ,011 mls @ 82 mls/hr IV .BY DURATION [facility] Last Admin: 01/07/21 14:54 Dose: 82 mls/hr Documented by: Amino Ac/Electrol/Dextrose/Calcium (Clinimix E 15) 1,000 mls @ 82 mls/hr IV .BY DURATION [facility] Last Admin: 01/08/21 03:45 Dose: 82 mls/hr Documented by: Piperacillin/Tazobactam/ (Dextrose 3.375 gm/ Premix) 50 mls @ 100 mls/hr IV Q6H [facility] Doxycycline Hyclate 100 mg/ (Sodium Chloride) 100 mls @ 100 mls/hr IV Q12H [facility] Last Admin: 01/08/21 10:39 Dose: 100 mls/hr Documented by: Potassium Phosphate 22.5 mmole (/ Sodium Chloride) 107.5 mls @ 30 mls/hr IV Q4H [facility] Stop: 01/08/21 17:34 Lactobacillus Rhamnosus (Lactobacillus Rhamnosus Gg (Probiotic) Cap) 2 cap PO DAILY [facility] Last Admin: 01/07/21 10:46 Dose: Not Given Documented by: Melatonin (Melatonin 3 Mg Tab) 9 mg PO BEDTIME [facility] Last Admin: 01/07/21 20:15 Dose: 9 mg Documented by: Metoprolol Tartrate (Metoprolol Tartrate 25 Mg Tab) 25 mg PO BID [facility] Morphine Sulfate (Morphine 2 Mg/Ml Syringe) 2 mg IVPUSH Q2H PRN PRN Reason: Pain Last Admin: 01/06/21 15:03 Dose: 2 mg Documented by: Ondansetron HCl (Ondansetron 4 Mg/2 Ml Sdv) 4 mg IVPUSH Q4H PRN PRN Reason: Nausea Pantoprazole Sodium (Pantoprazole 40 Mg Tab.Cr) 40 mg PO ACBREAKFAST [facility] Last Admin: 01/08/21 08:25 Dose: 40 mg Documented by: Potassium Chloride (Potassium Chloride 20 Meq Tab.Er) 40 meq PO DAILY [facility] Last Admin: 01/07/21 13:32 Dose: Not Given Documented by: Propafenone HCl (Propafenone 150 Mg Tab) 225 mg PO TID [facility] Last Admin: 01/08/21 08:26 Dose: 225 mg Documented by: Tramadol HCl (Tramadol 50 Mg Tab) 50 mg PO Q6H PRN PRN Reason: Pain Last Admin: 01/08/21 08:25 Dose: 50 mg Documented by: Discontinued Medications Acetaminophen (Acetaminophen 500 Mg Tab) 1,000 mg PO TID [facility] Last Admin: 01/07/21 11:48 Dose: Not Given Documented by: Acetaminophen (Acetaminophen 325 Mg Tab) 650 mg PO ONETIME PRN PRN Reason: HEADACHE,CHILLS Stop: 01/06/21 21:00 Bupivacaine HCl (Bupivacaine 0.5% 50 Ml Mdv) Confirm Administered Dose 50 ml .ROUTE .STK-MED ONE Stop: 01/07/21 07:03 Dexamethasone (Dexamethasone 4 Mg/Ml Sdv) Confirm Administered Dose 4 mg .ROUTE .STK-MED ONE Stop: 01/07/21 06:54 Diphenhydramine HCl (Diphenhydramine 50 Mg/Ml Sdv) 50 mg IVPUSH ONETIME PRN PRN Reason: ALLERGIC RXN Stop: 01/06/21 21:00 Epinephrine HCl (Epinephrine 1 Mg/Ml Sdv) 0.3 mg IM ONETIME PRN PRN Reason: ALLERGIC RXN Stop: 01/06/21 21:00 Famotidine (Famotidine 20 Mg/2 Ml Sdv) 20 mg IV ONETIME PRN PRN Reason: ALLERGIC RXN Stop: 01/06/21 21:00 Fentanyl (Fentanyl 100 Mcg/2 Ml Sdv) Confirm Administered Dose 100 mcg .ROUTE .STK-MED ONE Stop: 01/07/21 06:52 Furosemide (Furosemide 20 Mg/2 Ml Vial) 20 mg IVPUSH ONETIME ONE Stop: 01/07/21 14:01 Last Admin: 01/07/21 13:16 Dose: 20 mg Documented by: Glycopyrrolate (Glycopyrrolate 0.2 Mg/Ml 5 Ml Mdv) Confirm Administered Dose 1 mg .ROUTE .STK-MED ONE Stop: 01/07/21 06:54 Heparin Sodium (Porcine) (Heparin Sodium 100 Units/Ml 5 Ml Syringe) Confirm Administered Dose 500 units .ROUTE .STK-MED ONE Stop: 01/07/21 07:03 Lactated Ringer's (Ringers, Lactated) 1,000 mls @ 100 mls/hr IV ASDIRECTED [facility] Lactated Ringer's (Ringers, Lactated) 1,000 mls @ 40 mls/hr IV ASDIRECTED [facility] Potassium Phosphate 15 mmol/ (Premix) 250 mls @ 85 mls/hr IV Q3H [facility] Stop: 01/06/21 13:57 Last Admin: 01/06/21 11:20 Dose: 85 mls/hr Documented by: Magnesium Sulfate 2 gm/ Premix 50 mls @ 25 mls/hr IV Q6H [facility] Stop: 01/06/21 17:59 Last Admin: 01/06/21 09:15 Dose: 25 mls/hr Documented by: Magnesium Sulfate 2 gm/ Premix 50 mls @ 25 mls/hr IV Q6H [facility] Stop: 01/06/21 15:59 Last Admin: 01/06/21 14:23 Dose: 25 mls/hr Documented by: Ceftriaxone Sodium 2 gm/ (Sodium Chloride) 50 mls @ 100 mls/hr IV Q24H [facility] Stop: 01/07/21 16:00 Last Admin: 01/07/21 13:51 Dose: 100 mls/hr Documented by: Acetaminophen 1,000 mg/ Premix 100 mls @ 400 mls/hr IV Q8H PRN PRN Reason: Pain Stop: 01/07/21 19:14 Last Admin: 01/07/21 04:55 Dose: 400 mls/hr Documented by: Lidocaine HCl (Lidocaine 2% Jelly 10 Ml Urojet) Confirm Administered Dose 10 ml .ROUTE .STK-MED ONE Stop: 01/05/21 18:51 Last Admin: 01/05/21 19:33 Dose: Not Given Documented by: Lidocaine/Epinephrine (Lidocaine 1% With Epinephrine 1:100,000 50 Ml Mdv) Confirm Administered Dose 50 ml .ROUTE .STK-MED ONE Stop: 01/07/21 07:03 Meropenem (Meropenem 500 Mg Sdv) Confirm Administered Dose 500 mg .ROUTE .STK- MED ONE Stop: 01/07/21 08:33 Methylprednisolone Sodium Succinate (Methylprednisolone Sodium Succinate 125 Mg/2 Ml Sdv) 125 mg IVPUSH ONETIME PRN PRN Reason: ALLERGIC RXN Stop: 01/06/21 21:00 Metoprolol Tartrate (Metoprolol Tartrate 5 Mg/5 Ml Sdv) 5 mg IVPUSH Q6H [facility] Last Admin: 01/08/21 05:05 Dose: 5 mg Documented by: Neostigmine Methylsulfate (Neostigmine Methylsulfate 1 Mg/Ml 5 Ml Syringe) Confirm Administered Dose 5 mg .ROUTE .STK-MED ONE Stop: 01/07/21 06:54 Non-Formulary Medication (Casirivimab 120 Mg/Ml Vial) 600 mg SUBCUT ONETIME ONE Stop: 01/06/21 13:01 Last Admin: 01/06/21 12:57 Dose: 600 mg Documented by: Non-Formulary Medication (Imdevimab 120 Mg/Ml Vial) 600 mg SUBCUT ONETIME ONE Stop: 01/06/21 13:01 Last Admin: 01/06/21 12:57 Dose: 600 mg Documented by: Ondansetron HCl (Ondansetron 4 Mg/2 Ml Sdv) Confirm Administered Dose 4 mg .ROUTE .STK-MED ONE Stop: 01/07/21 06:54 Piperacillin Sod/Tazobactam Sod (Piperacillin/Tazobactam 3.375 Gm Vial) Confirm Administered Dose 3.375 gm .ROUTE .STK-MED ONE Stop: 01/07/21 08:41 Propafenone HCl (Propafenone 150 Mg Tab) 225 mg PO BID [facility] Last Admin: 01/05/21 21:18 Dose: 225 mg Documented by: Propofol (Propofol 200 Mg/20 Ml Sdv) Confirm Administered Dose 200 mg .ROUTE .STK-MED ONE Stop: 01/07/21 06:54 Rocuronium Mcdonald (Rocuronium 50 Mg/5 Ml Vial) Confirm Administered Dose 50 mg .ROUTE .STK-MED ONE Stop: 01/07/21 06:54 - Exam Quality Assessment: No: Supplemental Oxygen Central Line Total Time: 1Days 2Hours Urinary Catheter Total Time: 2Days 15Hours General: Alert, Cooperative, No Acute Distress. No: Oriented HEENT: Pupils Equal Lungs: Normal Respiratory Effort, Crackles (few both bases ) Cardiovascular: Regular Rate, Irregular Rhythm GI/Abdominal Exam: Normal Bowel Sounds, Soft, No Distention, Other (ostomy left lower abdomen ) Extremities: No Pedal Edema, Increased Warmth Skin: Warm, Dry Psy/Mental Status: Alert, Normal Affect Sepsis Event Note - Evaluation Sepsis Screening Result: No Definite Risk - Focused Exam Vital Signs: Vital Signs Temp Pulse Pulse Resp BP BP Pulse Ox 01/08/21 08:26 75 01/08/21 07:18 97 01/08/21 07:00 36.3 C 71 16 149/63 H 98 01/08/21 05:15 75 129/66 01/08/21 05:10 72 120/57 L 01/08/21 05:05 75 75 127/57 L 127/57 L 01/08/21 03:42 36.3 C 77 16 146/72 H 98 01/08/21 01:30 98 01/08/21 00:17 79 127/53 L 01/08/21 00:14 81 145/51 H 01/08/21 00:05 81 142/70 H 01/07/21 23:00 88 18 130/54 L 95 Consult PN Assessment/Plan Procedures: Procedures AGENT NOS ASSAY W/OPTIC (04/06/20) AIRWAY INHALATION TREATMENT (05/25/20) ASSAY OF CK (CPK) (03/14/20) ASSAY OF FERRITIN (03/05/20) ASSAY OF LACTIC ACID (05/30/20) ASSAY OF MAGNESIUM (12/21/20) ASSAY OF NATRIURETIC PEPTIDE (12/21/20) ASSAY OF PHOSPHORUS (12/21/20) ASSAY OF TROPONIN QUANT (12/21/20) BLOOD CULTURE FOR BACTERIA (04/06/20) BLOOD TRANSFUSION SERVICE (12/21/20) BLOOD TYPING SEROLOGIC ABO (12/21/20) BLOOD TYPING SEROLOGIC RH(D) (12/21/20) C DIFF AMPLIFIED PROBE (03/14/20) C-REACTIVE PROTEIN (04/06/20) CARCINOEMBRYONIC ANTIGEN (05/30/20) CARPAL TUNNEL SURGERY (02/18/13) COMPATIBILITY TEST ANTIGLOB (12/21/20) COMPATIBILITY TEST SPIN (12/21/20) COMPLETE CBC AUTOMATED (12/21/20) COMPLETE CBC W/AUTO DIFF WBC (12/21/20) COMPREHEN METABOLIC PANEL (12/21/20) CT ABD & PELV W/CONTRAST (05/30/20) CT ANGIOGRAPHY CHEST (05/28/20) CT THORAX DX C+ (05/30/20) CULTURE SCREEN ONLY (05/30/20) ELECTROCARDIOGRAM REPORT (03/14/20) ELECTROCARDIOGRAM TRACING (12/21/20) EMERGENCY DEPT VISIT (08/09/20) EMERGENCY DEPT VISIT (05/25/20) EMERGENCY DEPT VISIT (05/25/20) EMERGENCY DEPT VISIT (04/06/20) EMERGENCY DEPT VISIT (04/06/20) EMERGENCY DEPT VISIT (10/07/18) EVALUATE SWALLOWING FUNCTION (12/21/20) EXTREMITY STUDY (05/27/20) FIBRIN DEGRADATION QUANT (03/05/20) HEMOGLOBIN (05/30/20) HEPATIC FUNCTION PANEL (03/14/20) HOSPITAL DISCHARGE DAY (03/14/20) HOSPITAL DISCHARGE DAY (03/05/20) HYDRATE IV INFUSION ADD-ON (10/07/18) IMMUNOHISTO ANTB 1ST STAIN (05/30/20) IMMUNOHISTO ANTB ADDL SLIDE (12/21/20) INITIAL HOSPITAL CARE (03/05/20) INSERT TEMP BLADDER CATH (03/14/20) LACTATE (LD) (LDH) ENZYME (03/05/20) LEUKOCYTE ASSESSMENT FECAL (04/06/20) MEASURE BLOOD OXYGEN LEVEL (12/21/20) METABOLIC PANEL TOTAL CA (12/21/20) OCCULT BLD FECES 1-3 TESTS (05/30/20) OCCULT BLOOD FECES (04/06/20) OT EVAL LOW COMPLEX 30 MIN (12/21/20) PROCALCITONIN (PCT) (04/06/20) PROTHROMBIN TIME (03/05/20) PT EVAL MOD COMPLEX 30 MIN (12/21/20) RBC ANTIBODY SCREEN (12/21/20) ROUTINE VENIPUNCTURE (12/21/20) SELF CARE MNGMENT TRAINING (05/30/20) STOOL CULTR AEROBIC BACT EA (04/06/20) SUBSEQUENT HOSPITAL CARE (03/14/20) SUBSEQUENT HOSPITAL CARE (03/14/20) SUBSEQUENT HOSPITAL CARE (03/05/20) SUBSEQUENT HOSPITAL CARE (03/05/20) THER/PROPH/DIAG INJ IV PUSH (10/07/18) THER/PROPH/DIAG IV INF ADDON (03/14/20) THER/PROPH/DIAG IV INF INIT (08/09/20) THERAPEUTIC ACTIVITIES (12/21/20) THERAPEUTIC EXERCISES (12/21/20) TISSUE EXAM BY PATHOLOGIST (05/30/20) TTE W/DOPPLER COMPLETE (05/30/20) TX/PRO/DX INJ NEW DRUG ADDON (03/05/20) TX/PRO/DX INJ SAME DRUG POWDER COAT PAINTER (03/14/20) TX/PROPH/DG ADDL SEQ IV INF (03/14/20) URINALYSIS AUTO W/SCOPE (08/09/20) URINE CULTURE/COLONY COUNT (03/05/20) US EXAM ABDOM COMPLETE (03/14/20) X-RAY EXAM CHEST 1 VIEW (12/21/20) X-RAY EXAM CHEST 2 VIEWS (12/21/20) X-RAY EXAM OF SHOULDER (03/14/20) Problem List Initiated/Reviewed/Updated: Yes My Orders Last 24 Hours: My Active Orders 01/07/21 13:10 Haloperidol Lactate [Haldol] 2.5 mg IVPUSH Q4H PRN 01/07/21 21:00 Melatonin 9 mg PO BEDTIME 01/08/21 09:00 Doxycycline [Vibramycin] 100 mg Sodium Chloride 0.9% [Normal Saline] 100 ml IV Q12H 01/08/21 10:00 Piperacillin/Tazobactam/Dext [Zosyn in Dextrose Iso-Osmotic 3.375 GM/50 ML] 3.375 gm Premix Bag 1 bag IV Q6H 01/08/21 10:48 Discontinue Telemetry Monitoring [Cardiac Monitoring Discontinue] [RC] Click to Edit 01/08/21 11:00 Metoprolol Tartrate [Lopressor] 25 mg PO BID Plan: ASSESSMENT AND RECOMMENDATIONS- Covid positive-minimally symptomatic at this time. Not hypoxic and not febrile. He tolerated monoclonal antibodies the day after admission and hopefully will not progress to severe illness. 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 Had repeat surgery 01/07 to clean up some necrosis in the rectum. Triple-lumen catheter placed. Culture from the necrotic tissue was growing gram-positive cocci and gram-negative rods. -Empiric antibiotic coverage with Pip/Tazo and doxycycline -Management per surgical team Chronic atrial fibrillation-heart rate has been fairly well controlled with IV metoprolol. Patient is now able to take oral medications again so we will transition to oral metoprolol along with the propafenone. -Changed to metoprolol 25 mg twice a day -Propafenone 3 times a day if he is able to take it -Cardiac monitoring Normocytic anemia-probably related to recent surgery. No active evidence for blood loss. -I would encourage a transfusion threshold of less than 8 unless hemodynamically unstable Probable urinary tract infection-urinalysis suggestive of infection with packed RBCs and white blood cells. This could explain some of the weakness and lethargy. Culture grew out strep viridans. -Should be covered by antibiotics as above Antonio Washington MD
[2021-01-08] MEDS: Piperacillin/Tazobactam/Dext 3.375 GM in Premix Bag 1 BAG IV SCH ×3 (10:55→21:46)
[2021-01-08] MEDS: Metoprolol Tartrate 25 MG Tab PO SCH ×2 (11:07→20:16)
[2021-01-08] MEDS: Lactobacillus Rhamnosus GG (Probiotic) Cap PO SCH (11:10)
[2021-01-08] MEDS: Potassium Chloride 20 MEQ Tab.ER PO SCH (11:10)
[2021-01-08] MEDS: Potassium Phosphates 22.5 MMOLE in Sodium Chloride 0.9% 100 ML IV SCH ×2 (11:33→15:41)
[2021-01-08] MEDS: Melatonin 3 MG Tab PO SCH (20:17)
[2021-01-09] MEDS: Piperacillin/Tazobactam/Dext 3.375 GM in Premix Bag 1 BAG IV SCH ×4 (03:12→22:48)
[2021-01-09] MEDS: 1: AA 5%/Calcium/D15W/Lytes 1,000 ML with MVI, Adult with Vitamin K 10 ML, Zinc/Copper/M IV SCH ×6 (04:25→15:13)
[2021-01-09] MEDS ORDERED: Lidocaine 1% with EPINEPHrine 1:100,000 50 ML MDV ONE (06:39)
[2021-01-09] MEDS ORDERED: Bupivacaine 0.5% 50 ML MDV ONE (06:39)
[2021-01-09] MEDS ORDERED: Meropenem 500 MG SDV ONE (06:39)
[2021-01-09] MEDS ORDERED: fentaNYL 100 MCG/2 ML SDV ONE ×2 (06:45→07:00)
[2021-01-09] MEDS ORDERED: Propofol 200 MG/20 ML SDV ONE ×2 (06:46→07:00)
[2021-01-09] MEDS ORDERED: Phenylephrine 1% 10 MG/ML SDV ONE (06:47)
[2021-01-09] MEDS ORDERED: Sodium Chloride 0.9% 0 ML ONE (06:48)
--- NOTE | 2021-01-09 07:59 | PN ---
DATE OF SERVICE: 01/07/2021 As discussed with the patient's , the patient will be taken to the operating room today and central line will be inserted and the peritoneal wound then opened and examined, either packed open or irrigated and closed over additional drainage catheters depending on the operative findings. Potential risks of the procedure were reviewed with the patient's and she wishes to proceed. Mohsen Duggan MD /[id number]
--- NOTE | 2021-01-09 08:29 | PN ---
DATE OF SERVICE: 01/09/2021 The patient has been afebrile with stable vital signs. The oral Tramadol seems to be helping with his pain management and we will continue that on a p.r.n. basis. Otherwise, he did diurese for a bit yesterday and BNP is down from 5700 to 3900, and currently looks fairly stable. We will continue present antibiotics. He did not tolerate the dressing change very well yesterday in terms of pain and we will do this today in the OR. This may also allow us to debride some additional necrotic tissue from the perineal wound. Otherwise, we will continue the present TPN. He did eat fairly well yesterday, and magnesium and potassium are marginally low and these will be supplemented, and we will plan to do dressing change later this morning in the operating room. Mohsen Duggan MD /[id number]
--- NOTE | 2021-01-09 09:02 | PN ---
DATE OF SERVICE: 01/08/2021 The patient has been running temperatures in the 97 range. Heart rate is now down into the 70s to 80s. Blood pressure is 127/57. The patient had a net diuresis of around 1 L yesterday, but still has a rising BNP. We will give him some additional Lasix today. Otherwise, based on the Gram stain and initial cultures, we will switch his antibiotics to Piperacillin with the pelvic wound now being widely open, the infectious tissues are probably fairly diminished. We will do dressing change at the bedside shortly and begin doing that on a daily basis. We will otherwise continue TPN with the Lasix to be given. We will give him some potassium phosphate IV today as well, and otherwise get him up to the chair at least 3 times a day to the extent that he tolerates this. Mohsen Duggan MD /[id number]
[2021-01-09] MEDS: Lactobacillus Rhamnosus GG (Probiotic) Cap PO SCH (09:15)
[2021-01-09] MEDS: Potassium Chloride 20 MEQ Tab.ER PO SCH (09:15)
[2021-01-09] MEDS: traMADol 50 MG Tab PO PRN ×2 (09:15→15:20)
[2021-01-09] MEDS: Pantoprazole 40 MG Tab.CR PO SCH (09:16)
[2021-01-09] MEDS: Metoprolol Tartrate 25 MG Tab PO SCH ×2 (09:19→22:54)
[2021-01-09] MEDS: Doxycycline 100 MG in Sodium Chloride 0.9% 100 ML IV SCH ×2 (09:21→20:08)
--- NOTE | 2021-01-09 09:45 | OR ---
DATE OF PROCEDURE: 01/07/2021 SURGEON: Mohsen Duggan MD PREOPERATIVE DIAGNOSES: 1. Limited peripheral venous access. 2. Persistent drainage from perineal wound, status post recent abdominoperineal resection. POSTOPERATIVE DIAGNOSES: 1. Limited peripheral venous access. 2. Pelvic abscess associated with necrosis of soft tissues at perineal incision site. OPERATIVE PROCEDURES: 1. Insertion of right subclavian vein triple-lumen catheter (71382). 2. Exploration of perineal wound with: a. Drainage of pelvic abscess (03034). b. Debridement of necrotic soft tissue within perineal excision site (00517). ANESTHESIA: General. INDICATIONS FOR PROCEDURE: An 89-year-old status post recent abdominoperineal resection presenting with persistent drainage from his perineal wound. This has become a significant issue in terms of ability to adequately manage the patient. He was readmitted for general evaluation and was also then found to be newly COVID-positive having been tested the day earlier at the senior living where he is receiving rehabilitation with a negative COVID test at that time. The plan is to proceed with a general anesthetic with insertion of the right subclavian vein triple-lumen catheter. The left side previously was noted to be occluded, and this will serve as an adequate replacement of what has been otherwise quite inadequate peripheral venous access and allow administration of postoperative hyperalimentation. Then, we will proceed with exploration of the perineal wound with drainage of the fluid in that area and either closure with placement of drains or packing this open depending on the operative findings. Potential risks of the procedure including bleeding, infection, pneumohemothorax from the line insertion, and injury to underlying viscera during the course of the procedure were all reviewed with the patient's , and she wishes to proceed. DETAILS OF PROCEDURE: The patient was taken to the operating room, and after general endotracheal anesthesia was induced, initially the upper chest and neck areas were prepped and draped. The right subclavian vein was then cannulated, guidewire passed, and over the guidewire, a triple-lumen catheter positioned and it was quite tight in terms of the costoclavicular junction, but the catheter was eventually able to be passed. It showed somewhat tortuous route around the clavicle on the final chest x-ray, but the tip of the catheter was clearly within the right innominate vein or upper vena cava and would be adequate for its use. The patient was then placed in a lithotomy position. The perineal xander and sutures were then taken out and divided. This showed a fair bit of somewhat foul purulent drainage present within the pelvic wound. This extended up into much of the pelvis in an intraperitoneal location. Fortunately, the area appeared to be walled off by placement of omentum in that area at the time of the original procedure. Cultures of this were obtained, and the wound was then irrigated with meropenem-containing saline solution. There was quite a bit in the way of necrotic soft tissue along the incision site extending from the level of the soft tissues just inside the skin including the subcutaneous tissue and musculature of the perineum. This likely was associated with the patient's requirement of some norepinephrine for treatment of hypotension associated with cardiac arrhythmias in the postoperative period during the previous hospitalization with the patient also likely having some underlying significant vascular disease both at the large and small vessel area. Anyway, this tissue was debrided down to a point where it was fairly clean and remaining necrotic tissue was quite superficial with some emerging granulation tissue forming underneath it. The wound was then packed with iodoform gauze, and the procedure was concluded. The patient was taken from the operating room in satisfactory condition. In recovery room phase, he remained in the operating room due to his COVID status, and he was then transferred back to intensive care unit. Mohsen Duggan MD /[id number]
[2021-01-09] MEDS ORDERED: POTASSIUM PHOSPHATES IV ONE (10:00)
[2021-01-09] MEDS ORDERED: SODIUM CHLORIDE IV ONE (10:00)
[2021-01-09] MEDS: Magnesium Sulfate/Water 2 GM in Premix Bag 1 BAG IV SCH ×3 (10:23→22:50)
--- NOTE | 2021-01-09 10:58 | PCM.PN ---
- General Info Date of Service: 01/09/21 Subjective Update: No acute events overnight. No big issues overnight though the patient was hallucinating and thought he saw a [place] in the vent in his room. He does not complain of any abdominal pain but does endorse rectal pain especially when sitting on his buttocks. He does not feel short of breath and oxygenation has been excellent. No nausea or vomiting. A. fib has been very well controlled. Tolerating his diet. Tolerating dressing changes in the operating room. Functional Status: Reports: Pain Controlled, Tolerating Diet - Review of Systems Musculoskeletal: Reports: Other (butt pain) - Patient Data Vitals - Most Recent: Last Vital Signs Temp 35.9 C L 01/09/21 10:46 Pulse 65 01/09/21 10:46 Resp 18 01/09/21 10:46 BP 96/55 L 01/09/21 10:46 Pulse Ox 97 01/09/21 10:46 Weight - Most Recent: 95.254 kg I&O - Last 24 Hours: Intake & Output 01/08/21 01/09/21 01/09/21 22:59 06:59 14:59 Intake Total 1700 1279 670 Output Total 850 1275 350 Balance 850 4 320 Lab Results Last 24 Hours: Laboratory Results - last 24 hr 01/09/21 01/09/21 Range/Units 04:10 04:10 WBC 7.0 (4.5-11.0) K/uL RBC 3.71 L (4.30-5.90) M/uL Hgb 10.0 L (12.0-15.0) g/dL Hct 32.9 L (40.0-54.0) % MCV 89 (80-98) fL MCH 27 (27-31) pg MCHC 30 L (32-36) % Plt Count 206 (150-400) K/uL Sodium 143 (140-148) mmol/L Potassium 4.0 (3.6-5.2) mmol/L Chloride 106 (100-108) mmol/L Carbon Dioxide 29 (21-32) mmol/L Anion Gap 8.2 (5.0-14.0) mmol/L BUN 30 H (7-18) mg/dL Creatinine 0.8 (0.8-1.3) mg/dL Est Cr Clr Drug Dosing 55.52 mL/min Estimated GFR (MDRD) > 60 (>60) Glucose 111 H (74-106) mg/dL Calcium 8.9 (8.5-10.1) mg/dL Phosphorus 3.4 (2.5-4.9) mg/dL Magnesium 1.6 L (1.8-2.4) mg/dL Total Bilirubin 0.3 (0.2-1.0) mg/dL AST 276 H D (15-37) U/L ALT 210 H (12-78) U/L Alkaline Phosphatase 100 (46-116) U/L NT-Pro-B Natriuret Pep 3990 H (5-450) pg/mL Total Protein 4.7 L (6.4-8.2) g/dL Albumin 2.3 L (3.4-5.0) g/dL Globulin 2.4 (2.3-3.5) g/dL Albumin/Globulin Ratio 1.0 L (1.2-2.2) Brock Results Last 24 Hours: Microbiology 01/07/21 08:56 Gram Stain - Final Thigh, Right Wound Culture - Preliminary Anaerobic Culture - Preliminary NO GROWTH AFTER 2 DAYS Med Orders - Current: Current Medications Acetaminophen (Acetaminophen 500 Mg Tab) 1,000 mg PO Q8H PRN PRN Reason: PAIN Last Admin: 01/08/21 04:30 Dose: 1,000 mg Documented by: Furosemide (Furosemide 20 Mg/2 Ml Vial) 20 mg IVPUSH Q10H [facility] Stop: 01/09/21 20:01 Haloperidol Lactate (Haloperidol Lactate 5 Mg/Ml Sdv) 2.5 mg IVPUSH Q4H PRN PRN Reason: Agitation Heparin Sodium (Porcine) (Heparin Sodium 100 Units/Ml 5 Ml Syringe) 300 units FLUSH ASDIRECTED PRN PRN Reason: IV Use Last Admin: 01/07/21 14:49 Dose: 300 units Documented by: Albumin Human (Albumin 25%) 25 gm in 100 mls @ 25 mls/hr IV Q24H [facility] Stop: 01/09/21 19:59 Last Admin: 01/08/21 16:21 Dose: 25 mls/hr Documented by: Lactated Ringer's (Ringers, Lactated) 1,000 mls @ 25 mls/hr IV ASDIRECTED [facility] Last Admin: 01/07/21 14:52 Dose: 25 mls/hr Documented by: Multivitamins/Minerals 10 ml/Zinc 1 ml/ Amino Ac/Electrol/Dextrose/Calcium 1,011 mls @ 82 mls/hr IV .BY DURATION [facility] Last Admin: 01/08/21 16:18 Dose: 82 mls/hr Documented by: Amino Ac/Electrol/Dextrose/Calcium (Clinimix E 08/14) 1,000 mls @ 82 mls/hr IV .BY DURATION [facility] Last Admin: 01/09/21 04:25 Dose: 82 mls/hr Documented by: Piperacillin/Tazobactam/ (Dextrose 3.375 gm/ Premix) 50 mls @ 100 mls/hr IV Q6H [facility] Last Admin: 01/09/21 03:12 Dose: 100 mls/hr Documented by: Doxycycline Hyclate 100 mg/ (Sodium Chloride) 100 mls @ 100 mls/hr IV Q12H [facility] Last Admin: 01/09/21 09:21 Dose: 100 mls/hr Documented by: Potassium Phosphate 30 mmole/ (Sodium Chloride) 110 mls @ 20 mls/hr IV ONETIME ONE Stop: 01/09/21 15:29 Magnesium Sulfate 2 gm/ Premix 50 mls @ 25 mls/hr IV Q6H [facility] Stop: 01/11/21 05:59 Last Admin: 01/09/21 10:23 Dose: 25 mls/hr Documented by: Lactobacillus Rhamnosus (Lactobacillus Rhamnosus Gg (Probiotic) Cap) 2 cap PO DAILY [facility] Last Admin: 01/09/21 09:15 Dose: 2 cap Documented by: Melatonin (Melatonin 3 Mg Tab) 9 mg PO BEDTIME [facility] Last Admin: 01/08/21 20:17 Dose: 9 mg Documented by: Metoprolol Tartrate (Metoprolol Tartrate 25 Mg Tab) 25 mg PO BID [facility] Last Admin: 01/09/21 09:19 Dose: 25 mg Documented by: Morphine Sulfate (Morphine 2 Mg/Ml Syringe) 2 mg IVPUSH Q2H PRN PRN Reason: Pain Last Admin: 01/06/21 15:03 Dose: 2 mg Documented by: Ondansetron HCl (Ondansetron 4 Mg/2 Ml Sdv) 4 mg IVPUSH Q4H PRN PRN Reason: Nausea Pantoprazole Sodium (Pantoprazole 40 Mg Tab.Cr) 40 mg PO ACBREAKFAST [facility] Last Admin: 01/09/21 09:16 Dose: 40 mg Documented by: Potassium Chloride (Potassium Chloride 20 Meq Tab.Er) 40 meq PO DAILY [facility] Last Admin: 01/09/21 09:15 Dose: 40 meq Documented by: Propafenone HCl (Propafenone 150 Mg Tab) 225 mg PO TID [facility] Last Admin: 01/09/21 09:20 Dose: 225 mg Documented by: Tramadol HCl (Tramadol 50 Mg Tab) 50 mg PO Q6H PRN PRN Reason: Pain Last Admin: 01/09/21 09:15 Dose: 50 mg Documented by: Discontinued Medications Acetaminophen (Acetaminophen 500 Mg Tab) 1,000 mg PO TID [facility] Last Admin: 01/07/21 11:48 Dose: Not Given Documented by: Acetaminophen (Acetaminophen 325 Mg Tab) 650 mg PO ONETIME PRN PRN Reason: [place]ACHE,CHILLS Stop: 01/06/21 21:00 Bupivacaine HCl (Bupivacaine 0.5% 50 Ml Mdv) Confirm Administered Dose 50 ml .ROUTE .STK-MED ONE Stop: 01/07/21 07:03 Bupivacaine HCl (Bupivacaine 0.5% 50 Ml Mdv) Confirm Administered Dose 50 ml .ROUTE .STK-MED ONE Stop: 01/09/21 06:40 Dexamethasone (Dexamethasone 4 Mg/Ml Sdv) Confirm Administered Dose 4 mg .ROUTE .STK-MED ONE Stop: 01/07/21 06:54 Diphenhydramine HCl (Diphenhydramine 50 Mg/Ml Sdv) 50 mg IVPUSH ONETIME PRN PRN Reason: ALLERGIC RXN Stop: 01/06/21 21:00 Epinephrine HCl (Epinephrine 1 Mg/Ml Sdv) 0.3 mg IM ONETIME PRN PRN Reason: ALLERGIC RXN Stop: 01/06/21 21:00 Famotidine (Famotidine 20 Mg/2 Ml Sdv) 20 mg IV ONETIME PRN PRN Reason: ALLERGIC RXN Stop: 01/06/21 21:00 Fentanyl (Fentanyl 100 Mcg/2 Ml Sdv) Confirm Administered Dose 100 mcg .ROUTE .STK-MED ONE Stop: 01/07/21 06:52 Fentanyl (Fentanyl 100 Mcg/2 Ml Sdv) Confirm Administered Dose 200 mcg .ROUTE .STK-MED ONE Stop: 01/09/21 06:46 Fentanyl (Fentanyl 100 Mcg/2 Ml Sdv) 100 mcg .ROUTE .STK-MED ONE Stop: 01/09/21 07:01 Furosemide (Furosemide 20 Mg/2 Ml Vial) 20 mg IVPUSH ONETIME ONE Stop: 01/07/21 14:01 Last Admin: 01/07/21 13:16 Dose: 20 mg Documented by: Furosemide (Furosemide 20 Mg/2 Ml Vial) 20 mg IVPUSH Q6H [facility] Stop: 01/08/21 15:01 Last Admin: 01/08/21 14:39 Dose: 20 mg Documented by: Glycopyrrolate (Glycopyrrolate 0.2 Mg/Ml 5 Ml Mdv) Confirm Administered Dose 1 mg .ROUTE .STK-MED ONE Stop: 01/07/21 06:54 Heparin Sodium (Porcine) (Heparin Sodium 100 Units/Ml 5 Ml Syringe) Confirm Administered Dose 500 units .ROUTE .STK-MED ONE Stop: 01/07/21 07:03 Lactated Ringer's (Ringers, Lactated) 1,000 mls @ 100 mls/hr IV ASDIRECTED [facility] Lactated Ringer's (Ringers, Lactated) 1,000 mls @ 40 mls/hr IV ASDIRECTED [facility] Potassium Phosphate 15 mmol/ (Premix) 250 mls @ 85 mls/hr IV Q3H [facility] Stop: 01/06/21 13:57 Last Admin: 01/06/21 11:20 Dose: 85 mls/hr Documented by: Magnesium Sulfate 2 gm/ Premix 50 mls @ 25 mls/hr IV Q6H [facility] Stop: 01/06/21 17:59 Last Admin: 01/06/21 09:15 Dose: 25 mls/hr Documented by: Magnesium Sulfate 2 gm/ Premix 50 mls @ 25 mls/hr IV Q6H [facility] Stop: 01/06/21 15:59 Last Admin: 01/06/21 14:23 Dose: 25 mls/hr Documented by: Ceftriaxone Sodium 2 gm/ (Sodium Chloride) 50 mls @ 100 mls/hr IV Q24H [facility] Stop: 01/07/21 16:00 Last Admin: 01/07/21 13:51 Dose: 100 mls/hr Documented by: Acetaminophen 1,000 mg/ Premix 100 mls @ 400 mls/hr IV Q8H PRN PRN Reason: Pain Stop: 01/07/21 19:14 Last Admin: 01/07/21 04:55 Dose: 400 mls/hr Documented by: Potassium Phosphate 22.5 mmole (/ Sodium Chloride) 107.5 mls @ 30 mls/hr IV Q4H [facility] Stop: 01/08/21 17:34 Last Admin: 01/08/21 15:41 Dose: 30 mls/hr Documented by: Sodium Chloride (Normal Saline) Confirm Administered Dose 10 mls @ as directed .ROUTE .STK-MED ONE Stop: 01/09/21 06:49 Lidocaine HCl (Lidocaine 2% Jelly 10 Ml Urojet) Confirm Administered Dose 10 ml .ROUTE .STK-MED ONE Stop: 01/05/21 18:51 Last Admin: 01/05/21 19:33 Dose: Not Given Documented by: Lidocaine/Epinephrine (Lidocaine 1% With Epinephrine 1:100,000 50 Ml Mdv) Confirm Administered Dose 50 ml .ROUTE .STK-MED ONE Stop: 01/07/21 07:03 Lidocaine/Epinephrine (Lidocaine 1% With Epinephrine 1:100,000 50 Ml Mdv) Confirm Administered Dose 50 ml .ROUTE .STK-MED ONE Stop: 01/09/21 06:40 Meropenem (Meropenem 500 Mg Sdv) Confirm Administered Dose 500 mg .ROUTE .STK- MED ONE Stop: 01/07/21 08:33 Meropenem (Meropenem 500 Mg Sdv) Confirm Administered Dose 500 mg .ROUTE .STK- MED ONE Stop: 01/09/21 06:40 Last Admin: 01/09/21 08:00 Dose: 500 mg Documented by: Methylprednisolone Sodium Succinate (Methylprednisolone Sodium Succinate 125 Mg/2 Ml Sdv) 125 mg IVPUSH ONETIME PRN PRN Reason: ALLERGIC RXN Stop: 01/06/21 21:00 Metoprolol Tartrate (Metoprolol Tartrate 5 Mg/5 Ml Sdv) 5 mg IVPUSH Q6H [facility] Last Admin: 01/08/21 11:23 Dose: Not Given Documented by: Neostigmine Methylsulfate (Neostigmine Methylsulfate 1 Mg/Ml 5 Ml Syringe) Confirm Administered Dose 5 mg .ROUTE .STK-MED ONE Stop: 01/07/21 06:54 Non-Formulary Medication (Casirivimab 120 Mg/Ml Vial) 600 mg SUBCUT ONETIME ONE Stop: 01/06/21 13:01 Last Admin: 01/06/21 12:57 Dose: 600 mg Documented by: Non-Formulary Medication (Imdevimab 120 Mg/Ml Vial) 600 mg SUBCUT ONETIME ONE Stop: 01/06/21 13:01 Last Admin: 01/06/21 12:57 Dose: 600 mg Documented by: Ondansetron HCl (Ondansetron 4 Mg/2 Ml Sdv) Confirm Administered Dose 4 mg .ROUTE .STK-MED ONE Stop: 01/07/21 06:54 Phenylephrine HCl (Phenylephrine 1% 10 Mg/Ml Sdv) Confirm Administered Dose 10 mg .ROUTE .STK-MED ONE Stop: 01/09/21 06:48 Piperacillin Sod/Tazobactam Sod (Piperacillin/Tazobactam 3.375 Gm Vial) Confirm Administered Dose 3.375 gm .ROUTE .STK-MED ONE Stop: 01/07/21 08:41 Propafenone HCl (Propafenone 150 Mg Tab) 225 mg PO BID [facility] Last Admin: 01/05/21 21:18 Dose: 225 mg Documented by: Propofol (Propofol 200 Mg/20 Ml Sdv) Confirm Administered Dose 200 mg .ROUTE .STK-MED ONE Stop: 01/07/21 06:54 Propofol (Propofol 200 Mg/20 Ml Sdv) Confirm Administered Dose 400 mg .ROUTE .STK-MED ONE Stop: 01/09/21 06:47 Propofol (Propofol 200 Mg/20 Ml Sdv) 200 mg .ROUTE .STK-MED ONE Stop: 01/09/21 07:01 Rocuronium [place] (Rocuronium 50 Mg/5 Ml Vial) Confirm Administered Dose 50 mg .ROUTE .STK-MED ONE Stop: 01/07/21 06:54 - Exam Central Line Total Time: 1Days 15Hours Urinary Catheter Total Time: 3Days 12Hours General: Alert, Cooperative, No Acute Distress Lungs: Normal Respiratory Effort Cardiovascular: Regular Rate, Irregular Rhythm GI/Abdominal Exam: Soft, No Distention Psy/Mental Status: Alert, Normal Affect - Patient Data Lab Results Last 24 hrs: Laboratory Results - last 24 hr 01/09/21 01/09/21 Range/Units 04:10 04:10 WBC 7.0 (4.5-11.0) K/uL RBC 3.71 L (4.30-5.90) M/uL Hgb 10.0 L (12.0-15.0) g/dL Hct 32.9 L (40.0-54.0) % MCV 89 (80-98) fL MCH 27 (27-31) pg MCHC 30 L (32-36) % Plt Count 206 (150-400) K/uL Sodium 143 (140-148) mmol/L Potassium 4.0 (3.6-5.2) mmol/L Chloride 106 (100-108) mmol/L Carbon Dioxide 29 (21-32) mmol/L Anion Gap 8.2 (5.0-14.0) mmol/L BUN 30 H (7-18) mg/dL Creatinine 0.8 (0.8-1.3) mg/dL Est Cr Clr Drug Dosing 55.52 mL/min Estimated GFR (MDRD) > 60 (>60) Glucose 111 H (74-106) mg/dL Calcium 8.9 (8.5-10.1) mg/dL Phosphorus 3.4 (2.5-4.9) mg/dL Magnesium 1.6 L (1.8-2.4) mg/dL Total Bilirubin 0.3 (0.2-1.0) mg/dL AST 276 H D (15-37) U/L ALT 210 H (12-78) U/L Alkaline Phosphatase 100 (46-116) U/L NT-Pro-B Natriuret Pep 3990 H (5-450) pg/mL Total Protein 4.7 L (6.4-8.2) g/dL Albumin 2.3 L (3.4-5.0) g/dL Globulin 2.4 (2.3-3.5) g/dL Albumin/Globulin Ratio 1.0 L (1.2-2.2) Result Diagrams: 01/09/21 04:10 01/09/21 04:10 Brock Results Last 24 hrs: Microbiology 01/07/21 08:56 Gram Stain - Final Thigh, Right Wound Culture - Preliminary Anaerobic Culture - Preliminary NO GROWTH AFTER 2 DAYS Sepsis Event Note - Evaluation Sepsis Screening Result: No Definite Risk - Focused Exam Vital Signs: Vital Signs Temp Pulse Pulse Resp BP BP Pulse Ox 01/09/21 10:46 35.9 C L 65 18 96/55 L 97 01/09/21 10:24 75 16 104/64 97 01/09/21 09:35 63 16 96/46 L 100 01/09/21 09:30 68 16 96/46 L 97 01/09/21 09:20 60 01/09/21 09:19 60 110/43 L 01/09/21 09:05 60 16 113/50 L 99 01/09/21 08:50 35.3 C L 56 L 16 124/51 L 99 01/09/21 08:30 78 16 105/64 100 01/09/21 08:25 36.8 C 83 14 99/64 100 01/09/21 08:20 89 16 95/62 100 01/09/21 08:15 85 18 88/62 L 100 01/09/21 08:10 36.5 C 84 18 84/48 L 100 01/09/21 03:00 35.4 C L 70 18 98 01/08/21 23:00 36.5 C 68 18 138/57 L 99 - Problem List Review Problem List Initiated/Reviewed/Updated: Yes - My Orders Last 24 Hours: My Active Orders 01/08/21 10:00 Piperacillin/Tazobactam/Dext [Zosyn in Dextrose Iso-Osmotic 3.375 GM/50 ML] 3.375 gm Premix Bag 1 bag IV Q6H 01/08/21 11:00 Metoprolol Tartrate [Lopressor] 25 mg PO BID 01/09/21 14:00 Acetaminophen [Tylenol Extra Strength] 1,000 mg PO TID - Plan Plan:: ASSESSMENT AND RECOMMENDATIONS- Covid positive-no symptoms. Not hypoxic and not febrile. He tolerated monoclonal antibodies the day after admission and hopefully will not progress to severe illness. 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 Triple-lumen catheter placed. Culture from the necrotic tissue was growing coag negative staph and strep viridans. Doing well since the most recent surgery. Getting dressing changes in the OR daily. -Empiric antibiotic coverage with Pip/Tazo and doxycycline today, narrow antibiotics as able tomorrow -Management per surgical team Chronic atrial fibrillation-heart rate has been well controlled after transition to oral medications yesterday. -Continue metoprolol 25 mg twice a day -Propafenone 3 times a day -Discontinue cardiac monitoring Normocytic anemia-probably related to recent surgery. No active evidence for blood loss. -I would encourage a transfusion threshold of less than 8 unless hemodynamically unstable Probable urinary tract infection-urinalysis suggestive of infection with packed RBCs and white blood cells. This could explain some of the weakness and lethargy. Culture grew out strep viridans. -Should be covered by antibiotics as above Antonio Washington MD
[2021-01-09] MEDS: Furosemide 20 MG/2 ML VIAL IVPUSH SCH ×2 (11:23→19:42)
[2021-01-09] MEDS: Acetaminophen 500 MG Tab PO SCH ×2 (15:10→20:14)
[2021-01-09] MEDS: Melatonin 3 MG Tab PO SCH (20:11)
[2021-01-10] MEDS: Piperacillin/Tazobactam/Dext 3.375 GM in Premix Bag 1 BAG IV SCH ×4 (03:28→21:55)
[2021-01-10] MEDS: 1: AA 5%/Calcium/D15W/Lytes 1,000 ML with MVI, Adult with Vitamin K 10 ML, Zinc/Copper/M IV SCH ×6 (03:30→17:54)
[2021-01-10] MEDS: Magnesium Sulfate/Water 2 GM in Premix Bag 1 BAG IV SCH ×4 (03:30→21:55)
[2021-01-10] MEDS ORDERED: Meropenem 500 MG SDV ONE (06:18)
[2021-01-10] MEDS ORDERED: Propofol 200 MG/20 ML SDV ONE (06:29)
[2021-01-10] MEDS ORDERED: fentaNYL 100 MCG/2 ML SDV ONE (06:29)
[2021-01-10] MEDS ORDERED: Rocuronium 50 MG/5 ML Vial IV ONE (07:00)
[2021-01-10] MEDS: Metoprolol Tartrate 25 MG Tab PO SCH ×2 (08:27→20:25)
[2021-01-10] MEDS: Potassium Chloride 20 MEQ Tab.ER PO SCH (08:27)
[2021-01-10] MEDS: Lactobacillus Rhamnosus GG (Probiotic) Cap PO SCH (08:27)
[2021-01-10] MEDS: Pantoprazole 40 MG Tab.CR PO SCH (08:27)
[2021-01-10] MEDS: Acetaminophen 500 MG Tab PO SCH ×3 (08:28→20:29)
[2021-01-10] MEDS: Doxycycline 100 MG in Sodium Chloride 0.9% 100 ML IV SCH ×2 (08:59→20:21)
[2021-01-10] MEDS ORDERED: POTASSIUM PHOSPHATES IV ONE (11:00)
[2021-01-10] MEDS ORDERED: SODIUM CHLORIDE IV ONE (11:00)
[2021-01-10] MEDS: Melatonin 3 MG Tab PO SCH (20:25)
--- NOTE | 2021-01-10 20:49 | PCM.PN ---
- General Info Date of Service: 01/10/21 Admission Dx/Problem (Free Text): Admission Diagnosis/Problem Admission Diagnosis/Problem Weakness Subjective Update: Mr. Infante did well overnight. He tolerated his dressing change in the OR today. This afternoon he was noted to have significant amounts of blood coming from his Gan catheter which would flush. When bladder scan he had 600 mL with out much output from the catheter. He denied any pain however he does indicate pain in the buttocks and of the genitals to nursing. He has been noted to pull at his catheter. He had an episode of elevated heart rate today. Functional Status: Reports: Tolerating Diet (Eating about 50% of diet) - Review of Systems General: Reports: No Symptoms, Appetite HEENT: Reports: No Symptoms Pulmonary: Reports: No Symptoms Cardiovascular: Reports: No Symptoms Gastrointestinal: Reports: No Symptoms Genitourinary: Reports: Pain, Hematuria Musculoskeletal: Reports: No Symptoms Skin: Reports: No Symptoms Neurological: Reports: Confusion (Baseline) Psychiatric: Reports: Confusion (Baseline) - Patient Data Vitals - Most Recent: Last Vital Signs Temp 96.8 F L 01/10/21 19:34 Pulse 82 01/10/21 20:29 Resp 18 01/10/21 19:34 BP 115/52 L 01/10/21 20:25 Pulse Ox 98 01/10/21 19:34 Weight - Most Recent: 210 lb I&O - Last 24 Hours: Intake & Output 01/10/21 01/10/21 01/10/21 06:59 14:59 22:59 Intake Total 6225 847 5681 Output Total 1475 200 20 Balance -59 400 1925 Lab Results Last 24 Hours: Laboratory Results - last 24 hr 01/10/21 01/10/21 Range/Units 04:30 04:30 WBC 7.4 (4.5-11.0) K/uL RBC 3.61 L (4.30-5.90) M/uL Hgb 9.8 L (12.0-15.0) g/dL Hct 31.9 L (40.0-54.0) % MCV 88 (80-98) fL MCH 27 (27-31) pg MCHC 31 L (32-36) % Plt Count 199 (150-400) K/uL Sodium 141 (140-148) mmol/L Potassium 4.0 (3.6-5.2) mmol/L Chloride 105 (100-108) mmol/L Carbon Dioxide 28 (21-32) mmol/L Anion Gap 7.7 (5.0-14.0) mmol/L BUN 30 H (7-18) mg/dL Creatinine 0.8 (0.8-1.3) mg/dL Est Cr Clr Drug Dosing 55.52 mL/min Estimated GFR (MDRD) > 60 (>60) Glucose 96 (74-106) mg/dL Calcium 8.6 (8.5-10.1) mg/dL Phosphorus 3.4 (2.5-4.9) mg/dL Magnesium 2.6 H (1.8-2.4) mg/dL Total Bilirubin 0.4 (0.2-1.0) mg/dL AST 95 H (15-37) U/L ALT 147 H (12-78) U/L Alkaline Phosphatase 86 (46-116) U/L NT-Pro-B Natriuret Pep 1772 H (5-450) pg/mL Total Protein 4.8 L (6.4-8.2) g/dL Albumin 2.5 L (3.4-5.0) g/dL Globulin 2.3 (2.3-3.5) g/dL Albumin/Globulin Ratio 1.1 L (1.2-2.2) Med Orders - Current: Current Medications Acetaminophen (Acetaminophen 500 Mg Tab) 1,000 mg PO TID [facility] Last Admin: 01/10/21 20:29 Dose: 1,000 mg Documented by: Haloperidol Lactate (Haloperidol Lactate 5 Mg/Ml Sdv) 2.5 mg IVPUSH Q4H PRN PRN Reason: Agitation Heparin Sodium (Porcine) (Heparin Sodium 100 Units/Ml 5 Ml Syringe) 300 units FLUSH ASDIRECTED PRN PRN Reason: IV Use Last Admin: 01/07/21 14:49 Dose: 300 units Documented by: Lactated Ringer's (Ringers, Lactated) 1,000 mls @ 25 mls/hr IV ASDIRECTED [facility] Last Admin: 01/07/21 14:52 Dose: 25 mls/hr Documented by: Multivitamins/Minerals 10 ml/Zinc 1 ml/ Amino Ac/Electrol/Dextrose/Calcium 1,011 mls @ 82 mls/hr IV .BY DURATION [facility] Last Admin: 01/10/21 17:54 Dose: 82 mls/hr Documented by: Amino Ac/Electrol/Dextrose/Calcium (Clinimix E 08/14) 1,000 mls @ 82 mls/hr IV .BY DURATION [facility] Last Admin: 01/10/21 03:30 Dose: 82 mls/hr Documented by: Piperacillin/Tazobactam/ (Dextrose 3.375 gm/ Premix) 50 mls @ 100 mls/hr IV Q6H [facility] Last Admin: 01/10/21 15:08 Dose: 100 mls/hr Documented by: Doxycycline Hyclate 100 mg/ (Sodium Chloride) 100 mls @ 100 mls/hr IV Q12H [facility] Last Admin: 01/10/21 20:21 Dose: 100 mls/hr Documented by: Magnesium Sulfate 2 gm/ Premix 50 mls @ 25 mls/hr IV Q6H [facility] Stop: 01/11/21 05:59 Last Admin: 01/10/21 15:08 Dose: 25 mls/hr Documented by: Lactobacillus Rhamnosus (Lactobacillus Rhamnosus Gg (Probiotic) Cap) 2 cap PO DAILY [facility] Last Admin: 01/10/21 08:27 Dose: 2 cap Documented by: Melatonin (Melatonin 3 Mg Tab) 9 mg PO BEDTIME [facility] Last Admin: 01/10/21 20:25 Dose: 9 mg Documented by: Metoprolol Tartrate (Metoprolol Tartrate 25 Mg Tab) 25 mg PO BID [facility] Last Admin: 01/10/21 20:25 Dose: 25 mg Documented by: Morphine Sulfate (Morphine 2 Mg/Ml Syringe) 2 mg IVPUSH Q2H PRN PRN Reason: Pain Last Admin: 01/06/21 15:03 Dose: 2 mg Documented by: Ondansetron HCl (Ondansetron 4 Mg/2 Ml Sdv) 4 mg IVPUSH Q4H PRN PRN Reason: Nausea Pantoprazole Sodium (Pantoprazole 40 Mg Tab.Cr) 40 mg PO ACBREAKFAST [facility] Last Admin: 01/10/21 08:27 Dose: 40 mg Documented by: Potassium Chloride (Potassium Chloride 20 Meq Tab.Er) 40 meq PO DAILY [facility] Last Admin: 01/10/21 08:27 Dose: 40 meq Documented by: Propafenone HCl (Propafenone 150 Mg Tab) 225 mg PO TID [facility] Last Admin: 01/10/21 20:29 Dose: 225 mg Documented by: Tramadol HCl (Tramadol 50 Mg Tab) 50 mg PO Q6H PRN PRN Reason: Pain Last Admin: 01/09/21 15:20 Dose: 50 mg Documented by: Discontinued Medications Acetaminophen (Acetaminophen 500 Mg Tab) 1,000 mg PO TID [facility] Last Admin: 01/07/21 11:48 Dose: Not Given Documented by: Acetaminophen (Acetaminophen 325 Mg Tab) 650 mg PO ONETIME PRN PRN Reason: HEADACHE,CHILLS Stop: 01/06/21 21:00 Acetaminophen (Acetaminophen 500 Mg Tab) 1,000 mg PO Q8H PRN PRN Reason: PAIN Last Admin: 01/08/21 04:30 Dose: 1,000 mg Documented by: Bupivacaine HCl (Bupivacaine 0.5% 50 Ml Mdv) Confirm Administered Dose 50 ml .ROUTE .STK-MED ONE Stop: 01/07/21 07:03 Bupivacaine HCl (Bupivacaine 0.5% 50 Ml Mdv) Confirm Administered Dose 50 ml .ROUTE .STK-MED ONE Stop: 01/09/21 06:40 Dexamethasone (Dexamethasone 4 Mg/Ml Sdv) Confirm Administered Dose 4 mg .ROUTE .STK-MED ONE Stop: 01/07/21 06:54 Diphenhydramine HCl (Diphenhydramine 50 Mg/Ml Sdv) 50 mg IVPUSH ONETIME PRN PRN Reason: ALLERGIC RXN Stop: 01/06/21 21:00 Epinephrine HCl (Epinephrine 1 Mg/Ml Sdv) 0.3 mg IM ONETIME PRN PRN Reason: ALLERGIC RXN Stop: 01/06/21 21:00 Famotidine (Famotidine 20 Mg/2 Ml Sdv) 20 mg IV ONETIME PRN PRN Reason: ALLERGIC RXN Stop: 01/06/21 21:00 Fentanyl (Fentanyl 100 Mcg/2 Ml Sdv) Confirm Administered Dose 100 mcg .ROUTE .STK-MED ONE Stop: 01/07/21 06:52 Fentanyl (Fentanyl 100 Mcg/2 Ml Sdv) Confirm Administered Dose 200 mcg .ROUTE .STK-MED ONE Stop: 01/09/21 06:46 Fentanyl (Fentanyl 100 Mcg/2 Ml Sdv) 100 mcg .ROUTE .STK-MED ONE Stop: 01/09/21 07:01 Fentanyl (Fentanyl 100 Mcg/2 Ml Sdv) Confirm Administered Dose 100 mcg .ROUTE .STK-MED ONE Stop: 01/10/21 06:30 Furosemide (Furosemide 20 Mg/2 Ml Vial) 20 mg IVPUSH ONETIME ONE Stop: 01/07/21 14:01 Last Admin: 01/07/21 13:16 Dose: 20 mg Documented by: Furosemide (Furosemide 20 Mg/2 Ml Vial) 20 mg IVPUSH Q6H [facility] Stop: 01/08/21 15:01 Last Admin: 01/08/21 14:39 Dose: 20 mg Documented by: Furosemide (Furosemide 20 Mg/2 Ml Vial) 20 mg IVPUSH Q10H [facility] Stop: 01/09/21 20:01 Last Admin: 01/09/21 19:42 Dose: 20 mg Documented by: Glycopyrrolate (Glycopyrrolate 0.2 Mg/Ml 5 Ml Mdv) Confirm Administered Dose 1 mg .ROUTE .STK-MED ONE Stop: 01/07/21 06:54 Heparin Sodium (Porcine) (Heparin Sodium 100 Units/Ml 5 Ml Syringe) Confirm Administered Dose 500 units .ROUTE .STK-MED ONE Stop: 01/07/21 07:03 Lactated Ringer's (Ringers, Lactated) 1,000 mls @ 100 mls/hr IV ASDIRECTED [facility] Lactated Ringer's (Ringers, Lactated) 1,000 mls @ 40 mls/hr IV ASDIRECTED [facility] Potassium Phosphate 15 mmol/ (Premix) 250 mls @ 85 mls/hr IV Q3H [facility] Stop: 01/06/21 13:57 Last Admin: 01/06/21 11:20 Dose: 85 mls/hr Documented by: Magnesium Sulfate 2 gm/ Premix 50 mls @ 25 mls/hr IV Q6H [facility] Stop: 01/06/21 17:59 Last Admin: 01/06/21 09:15 Dose: 25 mls/hr Documented by: Magnesium Sulfate 2 gm/ Premix 50 mls @ 25 mls/hr IV Q6H [facility] Stop: 01/06/21 15:59 Last Admin: 01/06/21 14:23 Dose: 25 mls/hr Documented by: Albumin Human (Albumin 25%) 25 gm in 100 mls @ 25 mls/hr IV Q24H [facility] Stop: 01/09/21 19:59 Last Admin: 01/09/21 16:06 Dose: 25 mls/hr Documented by: Ceftriaxone Sodium 2 gm/ (Sodium Chloride) 50 mls @ 100 mls/hr IV Q24H [facility] Stop: 01/07/21 16:00 Last Admin: 01/07/21 13:51 Dose: 100 mls/hr Documented by: Acetaminophen 1,000 mg/ Premix 100 mls @ 400 mls/hr IV Q8H PRN PRN Reason: Pain Stop: 01/07/21 19:14 Last Admin: 01/07/21 04:55 Dose: 400 mls/hr Documented by: Potassium Phosphate 22.5 mmole (/ Sodium Chloride) 107.5 mls @ 30 mls/hr IV Q4H [facility] Stop: 01/08/21 17:34 Last Admin: 01/08/21 15:41 Dose: 30 mls/hr Documented by: Sodium Chloride (Normal Saline) Confirm Administered Dose 10 mls @ as directed .ROUTE .STK-MED ONE Stop: 01/09/21 06:49 Potassium Phosphate 30 mmole/ (Sodium Chloride) 110 mls @ 20 mls/hr IV ONETIME ONE Stop: 01/09/21 15:29 Last Admin: 01/09/21 11:16 Dose: 20 mls/hr Documented by: Potassium Phosphate 30 mmole/ (Sodium Chloride) 110 mls @ 20 mls/hr IV ONETIME ONE Stop: 01/10/21 16:29 Last Admin: 01/10/21 11:28 Dose: 20 mls/hr Documented by: Lidocaine HCl (Lidocaine 2% Jelly 10 Ml [employer]) Confirm Administered Dose 10 ml .ROUTE .STK-MED ONE Stop: 01/05/21 18:51 Last Admin: 01/05/21 19:33 Dose: Not Given Documented by: Lidocaine/Epinephrine (Lidocaine 1% With Epinephrine 1:100,000 50 Ml Mdv) Confirm Administered Dose 50 ml .ROUTE .STK-MED ONE Stop: 01/07/21 07:03 Lidocaine/Epinephrine (Lidocaine 1% With Epinephrine 1:100,000 50 Ml Mdv) Confirm Administered Dose 50 ml .ROUTE .STK-MED ONE Stop: 01/09/21 06:40 Meropenem (Meropenem 500 Mg Sdv) Confirm Administered Dose 500 mg .ROUTE .STK- MED ONE Stop: 01/07/21 08:33 Meropenem (Meropenem 500 Mg Sdv) Confirm Administered Dose 500 mg .ROUTE .STK- MED ONE Stop: 01/09/21 06:40 Last Admin: 01/09/21 08:00 Dose: 500 mg Documented by: Meropenem (Meropenem 500 Mg Sdv) Confirm Administered Dose 500 mg .ROUTE .STK- MED ONE Stop: 01/10/21 06:19 Last Admin: 01/10/21 07:31 Dose: 500 mg Documented by: Methylprednisolone Sodium Succinate (Methylprednisolone Sodium Succinate 125 Mg/2 Ml Sdv) 125 mg IVPUSH ONETIME PRN PRN Reason: ALLERGIC RXN Stop: 01/06/21 21:00 Metoprolol Tartrate (Metoprolol Tartrate 5 Mg/5 Ml Sdv) 5 mg IVPUSH Q6H [facility] Last Admin: 01/08/21 11:23 Dose: Not Given Documented by: Neostigmine Methylsulfate (Neostigmine Methylsulfate 1 Mg/Ml 5 Ml Syringe) Confirm Administered Dose 5 mg .ROUTE .STK-MED ONE Stop: 01/07/21 06:54 Non-Formulary Medication (Casirivimab 120 Mg/Ml Vial) 600 mg SUBCUT ONETIME ONE Stop: 01/06/21 13:01 Last Admin: 01/06/21 12:57 Dose: 600 mg Documented by: Non-Formulary Medication (Imdevimab 120 Mg/Ml Vial) 600 mg SUBCUT ONETIME ONE Stop: 01/06/21 13:01 Last Admin: 01/06/21 12:57 Dose: 600 mg Documented by: Ondansetron HCl (Ondansetron 4 Mg/2 Ml Sdv) Confirm Administered Dose 4 mg .ROUTE .STK-MED ONE Stop: 01/07/21 06:54 Phenylephrine HCl (Phenylephrine 1% 10 Mg/Ml Sdv) Confirm Administered Dose 10 mg .ROUTE .STK-MED ONE Stop: 01/09/21 06:48 Piperacillin Sod/Tazobactam Sod (Piperacillin/Tazobactam 3.375 Gm Vial) Confirm Administered Dose 3.375 gm .ROUTE .STK-MED ONE Stop: 01/07/21 08:41 Propafenone HCl (Propafenone 150 Mg Tab) 225 mg PO BID [facility] Last Admin: 01/05/21 21:18 Dose: 225 mg Documented by: Propofol (Propofol 200 Mg/20 Ml Sdv) Confirm Administered Dose 200 mg .ROUTE .STK-MED ONE Stop: 01/07/21 06:54 Propofol (Propofol 200 Mg/20 Ml Sdv) Confirm Administered Dose 400 mg .ROUTE .STK-MED ONE Stop: 01/09/21 06:47 Propofol (Propofol 200 Mg/20 Ml Sdv) 200 mg .ROUTE .STK-MED ONE Stop: 01/09/21 07:01 Propofol (Propofol 200 Mg/20 Ml Sdv) Confirm Administered Dose 200 mg .ROUTE .STK-MED ONE Stop: 01/10/21 06:30 Rocuronium [place] (Rocuronium 50 Mg/5 Ml Vial) Confirm Administered Dose 50 mg .ROUTE .STK-MED ONE Stop: 01/07/21 06:54 - Exam Central Line Total Time: 3Days 4Hours Urinary Catheter Total Time: 5Days 0Hours General: Alert, Cooperative, No Acute Distress HEENT: Pupils Equal, EOMI, Mucous Membr. Moist/[place] Neck: Supple, Trachea Midline Lungs: Normal Respiratory Effort Cardiovascular: Regular Rate GI/Abdominal Exam: Normal Bowel Sounds, Soft, Non-Tender (Male) Exam: Scrotal Swelling, Scrotum Tenderness (L), Other (Penile swelling) Extremities: Non-Tender, No Pedal Edema Skin: Warm, Dry, Intact Neurological: No New Focal Deficit Psy/Mental Status: Alert, Normal Affect, Normal Mood - Patient Data Lab Results Last 24 hrs: Laboratory Results - last 24 hr 01/10/21 01/10/21 Range/Units 04:30 04:30 WBC 7.4 (4.5-11.0) K/uL RBC 3.61 L (4.30-5.90) M/uL Hgb 9.8 L (12.0-15.0) g/dL Hct 31.9 L (40.0-54.0) % MCV 88 (80-98) fL MCH 27 (27-31) pg MCHC 31 L (32-36) % Plt Count 199 (150-400) K/uL Sodium 141 (140-148) mmol/L Potassium 4.0 (3.6-5.2) mmol/L Chloride 105 (100-108) mmol/L Carbon Dioxide 28 (21-32) mmol/L Anion Gap 7.7 (5.0-14.0) mmol/L BUN 30 H (7-18) mg/dL Creatinine 0.8 (0.8-1.3) mg/dL Est Cr Clr Drug Dosing 55.52 mL/min Estimated GFR (MDRD) > 60 (>60) Glucose 96 (74-106) mg/dL Calcium 8.6 (8.5-10.1) mg/dL Phosphorus 3.4 (2.5-4.9) mg/dL Magnesium 2.6 H (1.8-2.4) mg/dL Total Bilirubin 0.4 (0.2-1.0) mg/dL AST 95 H (15-37) U/L ALT 147 H (12-78) U/L Alkaline Phosphatase 86 (46-116) U/L NT-Pro-B Natriuret Pep 1772 H (5-450) pg/mL Total Protein 4.8 L (6.4-8.2) g/dL Albumin 2.5 L (3.4-5.0) g/dL Globulin 2.3 (2.3-3.5) g/dL Albumin/Globulin Ratio 1.1 L (1.2-2.2) Result Diagrams: 01/10/21 04:30 01/10/21 04:30 Sepsis Event Note - Evaluation Sepsis Screening Result: No Definite Risk - Focused Exam Vital Signs: Vital Signs Temp Pulse Pulse Resp BP BP Pulse Ox 01/10/21 20:29 82 01/10/21 20:25 124 H 115/52 L 01/10/21 19:34 96.8 F L 75 18 106/52 L 98 01/10/21 15:08 61 01/10/21 15:05 98.4 F 61 16 139/54 L 92 L 01/10/21 11:30 96.8 F L 64 16 123/49 L 97 - Problem List & Annotations (1) Status post exploratory laparotomy SNOMED Code(s): 604894143, 73898743, 215419506 Code(s): Z98.890 - OTHER SPECIFIED POSTPROCEDURAL STATES Status: Acute Current Visit: Yes Annotation/Comment:: Drainage ofrectal/pelvic abscess (2) History of atrial fibrillation SNOMED Code(s): 398567748 Code(s): Z86.79 - PERSONAL HISTORY OF OTHER DISEASES OF THE CIRCULATORY SYSTEM Status: Chronic Current Visit: No (3) Essential hypertension SNOMED Code(s): 93061410 Code(s): I10 - ESSENTIAL (PRIMARY) HYPERTENSION Status: Chronic Current Visit: No - Problem List Review Problem List Initiated/Reviewed/Updated: Yes - Plan Plan:: ASSESSMENT AND RECOMMENDATIONS- Covid positive-no symptoms. Not hypoxic and not febrile. He tolerated monocl onal antibodies the day after admission and hopefully will not progress to severe illness. 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 Triple-lumen catheter placed. Culture from the necrotic tissue was growing coag negative staph and strep viridans. Doing well since the most recent surgery. Getting dressing changes in the OR daily. -Empiric antibiotic coverage with Pip/Tazo and doxycycline today, pending susceptibilities -Management per surgical team Chronic atrial fibrillation-heart rate has been well controlled after transition to oral medications yesterday. -Continue metoprolol 25 mg twice a day -Propafenone 3 times a day -Discontinue cardiac monitoring Normocytic anemia-probably related to recent surgery. No active evidence for blood loss. -I would encourage a transfusion threshold of less than 8 unless hemodynamically unstable Probable urinary tract infection-urinalysis suggestive of infection with packed RBCs and white blood cells. This could explain some of the weakness and lethargy. Culture grew out strep viridans. -Should be covered by antibiotics as above VTE prophylaxis: Currently having hematuria GI prophylaxis: Not indicated Diet: Regular diet Plan: We will continue to wait for susceptibilities to taper antibiotics. We will continue flushing catheter and may need to do a catheter exchange tomorrow if we are unable to get it flowing however this will be difficult due to the excessive amount of swelling in the genital region including the penis. Hien Fofana,
[2021-01-11] MEDS: Magnesium Sulfate/Water 2 GM in Premix Bag 1 BAG IV SCH (04:46)
[2021-01-11] MEDS: Piperacillin/Tazobactam/Dext 3.375 GM in Premix Bag 1 BAG IV SCH ×2 (04:46→10:28)
[2021-01-11] MEDS ORDERED: Meropenem 500 MG SDV ONE (06:33)
[2021-01-11] MEDS ORDERED: Neostigmine Methylsulfate 1 MG/ML 5 ML Syringe ONE (06:56)
[2021-01-11] MEDS ORDERED: Succinylcholine 200 MG/10 ML MDV ONE (06:56)
[2021-01-11] MEDS ORDERED: Rocuronium 50 MG/5 ML Vial ONE (06:56)
[2021-01-11] MEDS ORDERED: fentaNYL 100 MCG/2 ML SDV ONE ×2 (06:56→07:11)
[2021-01-11] MEDS ORDERED: Glycopyrrolate 0.2 MG/ML 5 ML MDV ONE (06:56)
[2021-01-11] MEDS ORDERED: Dexamethasone 4 MG/ML SDV ONE (06:56)
[2021-01-11] MEDS ORDERED: Ondansetron 4 MG/2 ML SDV ONE (06:56)
[2021-01-11] MEDS ORDERED: Propofol 200 MG/20 ML SDV ONE (06:56)
[2021-01-11] MEDS: 1: AA 5%/Calcium/D15W/Lytes 1,000 ML with MVI, Adult with Vitamin K 10 ML, Zinc/Copper/M IV SCH ×6 (07:02→19:45)
[2021-01-11] MEDS ORDERED: Bupivacaine 0.5%/EPINEPHrine 1:200,000 50 ML MDV ONE (07:53)
[2021-01-11] MEDS: Doxycycline 100 MG in Sodium Chloride 0.9% 100 ML IV SCH ×2 (10:26→21:41)
[2021-01-11] MEDS: Pantoprazole 40 MG Tab.CR PO SCH ×2 (10:27→13:05)
[2021-01-11] MEDS: Potassium Chloride 20 MEQ Tab.ER PO SCH ×2 (10:27→13:05)
[2021-01-11] MEDS: Lactobacillus Rhamnosus GG (Probiotic) Cap PO SCH ×2 (10:27→13:05)
[2021-01-11] MEDS: Metoprolol Tartrate 25 MG Tab PO SCH ×3 (10:28→21:40)
[2021-01-11] MEDS: Acetaminophen 500 MG Tab PO SCH ×3 (10:28→21:41)
--- NOTE | 2021-01-11 15:05 | OR ---
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 POSTOPERATIVE DIAGNOSES: 1. Large open perineal and pelvic wound with focal soft tissue necrosis. 2. 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 PROCEDURE PERFORMED: Examination of open perineal and pelvic wound with: 1. Debridement of necrotic soft tissue posteriorly and laterally within the peritoneal wall (30082). 2. Dressing change under anesthesia (12391). ANESTHESIA: IV sedation. INDICATION FOR PROCEDURE: The patient has a large open perineal and pelvic wound which has been too uncomfortable to do dressing changes in the bedside. Given this, he is to undergo daily dressing changes in the operating room on IV sedation for the time being. Potential risks of the procedure were reviewed with the patient's , and she wishes to proceed. DETAILS OF PROCEDURE: The patient was taken to the operating room and placed in a lithotomy position. The previous packing was taken down. There was some small amount of necrotic subcutaneous tissue, muscular fascia, and musculature laterally posteriorly on both sides, and this was debrided. At that point, the patient was noted to have a small opening in the urinary bladder posteriorly with the bladder catheter protruding through that area. The catheter was at this point decreased in terms of the volume and will be placed back into the urinary bladder. The catheter presently remains in the bladder, but due to the opening, it would obviously need to be repaired at some point here. This measured about 1 cm midline. We will discuss the situation with the patient's and develop an operative plan over the next week 24 hours in terms of dealing with this issue. Otherwise, Iodoform gauze packing was placed for today. The opening in the bladder is likely multifactorial. One is the fact that the tumor had to be more or less peeled off the area of bladder and prostate area, and then the secondary episode of soft tissue ischemia in the early postoperative period related to the protracted period of high-dose norepinephrine which appears to likely be behind the soft tissue necrosis within the pelvic wall as well. At any rate, the tissues all appear to be reasonably viable now, and one would expect, as long as adequate drainage can be obtained by means of suprapubic catheter, we should be able to close the urinary bladder with some . Mohsen Duggan MD /[id number]
--- NOTE | 2021-01-11 20:38 | PCM.PN ---
- General Info Date of Service: 01/11/21 Admission Dx/Problem (Free Text): Admission Diagnosis/Problem Admission Diagnosis/Problem Weakness Subjective Update: Mr. Infante denied pain today however when I was examining him he did vocalize that he was in pain especially when I felt his abdomen. He does appear to be more alert to me today than he was yesterday. He is able to answer some questions but does not seem to understand other questions. He now has a suprap ubic catheter placed that is draining a light brown urine. Functional Status: Reports: Urinating - Review of Systems General: Reports: No Symptoms HEENT: Reports: No Symptoms Pulmonary: Reports: No Symptoms Cardiovascular: Reports: No Symptoms Gastrointestinal: Reports: Abdominal Pain Genitourinary: Reports: No Symptoms Musculoskeletal: Reports: No Symptoms Skin: Reports: No Symptoms Neurological: Reports: No Symptoms Psychiatric: Reports: No Symptoms - Patient Data Vitals - Most Recent: Last Vital Signs Temp 95.9 F L 01/11/21 19:46 Pulse 82 01/11/21 19:46 Resp 18 01/11/21 19:46 BP 146/59 H 01/11/21 19:46 Pulse Ox 96 01/11/21 19:46 Weight - Most Recent: 210 lb I&O - Last 24 Hours: Intake & Output 01/11/21 01/11/21 01/11/21 06:59 14:59 22:59 Intake Total 1439 350 570 Output Total 100 1200 Balance 1339 350 -630 Lab Results Last 24 Hours: Laboratory Results - last 24 hr 01/11/21 01/11/21 Range/Units 04:40 04:40 WBC 8.2 (4.5-11.0) K/uL RBC 3.52 L (4.30-5.90) M/uL Hgb 9.4 L (12.0-15.0) g/dL Hct 31.3 L (40.0-54.0) % MCV 89 (80-98) fL MCH 27 (27-31) pg MCHC 30 L (32-36) % Plt Count 215 (150-400) K/uL Sodium 140 (140-148) mmol/L Potassium 4.5 (3.6-5.2) mmol/L Chloride 107 (100-108) mmol/L Carbon Dioxide 28 (21-32) mmol/L Anion Gap 4.8 L (5.0-14.0) mmol/L BUN 29 H (7-18) mg/dL Creatinine 0.9 (0.8-1.3) mg/dL Est Cr Clr Drug Dosing 49.35 mL/min Estimated GFR (MDRD) > 60 (>60) Glucose 105 (74-106) mg/dL Calcium 8.4 L (8.5-10.1) mg/dL Phosphorus 3.2 (2.5-4.9) mg/dL Magnesium 3.3 H (1.8-2.4) mg/dL Total Bilirubin 0.3 (0.2-1.0) mg/dL AST 40 H (15-37) U/L ALT 93 H (12-78) U/L Alkaline Phosphatase 79 (46-116) U/L NT-Pro-B Natriuret Pep 1752 H (5-450) pg/mL Total Protein 4.7 L (6.4-8.2) g/dL Albumin 2.2 L (3.4-5.0) g/dL Globulin 2.5 (2.3-3.5) g/dL Albumin/Globulin Ratio 0.9 L (1.2-2.2) Brock Results Last 24 Hours: Microbiology 01/07/21 08:56 Gram Stain - Final Thigh, Right Wound Culture - Final Staphylococcus Simulans Viridans Streptococcus Anaerobic Culture - Final NO GROWTH AFTER 3 DAYS Med Orders - Current: Current Medications Acetaminophen (Acetaminophen 500 Mg Tab) 1,000 mg PO TID [facility] Last Admin: 01/11/21 13:04 Dose: Not Given Documented by: Haloperidol Lactate (Haloperidol Lactate 5 Mg/Ml Sdv) 2.5 mg IVPUSH Q4H PRN PRN Reason: Agitation Heparin Sodium (Porcine) (Heparin Sodium 100 Units/Ml 5 Ml Syringe) 300 units FLUSH ASDIRECTED PRN PRN Reason: IV Use Last Admin: 01/07/21 14:49 Dose: 300 units Documented by: Lactated Ringer's (Ringers, Lactated) 1,000 mls @ 25 mls/hr IV ASDIRECTED [facility] Last Admin: 01/07/21 14:52 Dose: 25 mls/hr Documented by: Doxycycline Hyclate 100 mg/ (Sodium Chloride) 100 mls @ 100 mls/hr IV Q12H [facility] Last Admin: 01/11/21 10:26 Dose: 100 mls/hr Documented by: Multivitamins/Minerals 10 ml/Zinc 1 ml/ Amino Ac/Electrol/Dextrose/Calcium 1,011 mls @ 82 mls/hr IV .BY DURATION [facility] Last Admin: 01/11/21 19:45 Dose: 82 mls/hr Documented by: Amino Ac/Electrol/Dextrose/Calcium (Clinimix E 5/15) 1,000 mls @ 82 mls/hr IV .BY DURATION [facility] Lactobacillus Rhamnosus (Lactobacillus Rhamnosus Gg (Probiotic) Cap) 2 cap PO DAILY [facility] Last Admin: 01/11/21 13:05 Dose: Not Given Documented by: Melatonin (Melatonin 3 Mg Tab) 9 mg PO BEDTIME [facility] Last Admin: 01/10/21 20:25 Dose: 9 mg Documented by: Metoprolol Tartrate (Metoprolol Tartrate 25 Mg Tab) 25 mg PO BID [facility] Last Admin: 01/11/21 13:05 Dose: Not Given Documented by: Morphine Sulfate (Morphine 2 Mg/Ml Syringe) 2 mg IVPUSH Q2H PRN PRN Reason: Pain Last Admin: 01/06/21 15:03 Dose: 2 mg Documented by: Ondansetron HCl (Ondansetron 4 Mg/2 Ml Sdv) 4 mg IVPUSH Q4H PRN PRN Reason: Nausea Pantoprazole Sodium (Pantoprazole 40 Mg Tab.Cr) 40 mg PO ACBREAKFAST [facility] Last Admin: 01/11/21 13:05 Dose: Not Given Documented by: Potassium Chloride (Potassium Chloride 20 Meq Tab.Er) 40 meq PO DAILY [facility] Last Admin: 01/11/21 13:05 Dose: Not Given Documented by: Propafenone HCl (Propafenone 150 Mg Tab) 225 mg PO TID [facility] Last Admin: 01/11/21 13:06 Dose: Not Given Documented by: Tramadol HCl (Tramadol 50 Mg Tab) 50 mg PO Q6H PRN PRN Reason: Pain Last Admin: 01/09/21 15:20 Dose: 50 mg Documented by: Discontinued Medications Acetaminophen (Acetaminophen 500 Mg Tab) 1,000 mg PO TID [facility] Last Admin: 01/07/21 11:48 Dose: Not Given Documented by: Acetaminophen (Acetaminophen 325 Mg Tab) 650 mg PO ONETIME PRN PRN Reason: HEADACHE,CHILLS Stop: 01/06/21 21:00 Acetaminophen (Acetaminophen 500 Mg Tab) 1,000 mg PO Q8H PRN PRN Reason: PAIN Last Admin: 01/08/21 04:30 Dose: 1,000 mg Documented by: Bupivacaine HCl (Bupivacaine 0.5% 50 Ml Mdv) Confirm Administered Dose 50 ml .ROUTE .STK-MED ONE Stop: 01/07/21 07:03 Bupivacaine HCl (Bupivacaine 0.5% 50 Ml Mdv) Confirm Administered Dose 50 ml .ROUTE .STK-MED ONE Stop: 01/09/21 06:40 Bupivacaine HCl/Epinephrine Bitart (Bupivacaine 0.5%/Epinephrine 1:200,000 50 Ml Mdv) Confirm Administered Dose 50 ml .ROUTE .STK-MED ONE Stop: 01/11/21 07:54 Dexamethasone (Dexamethasone 4 Mg/Ml Sdv) Confirm Administered Dose 4 mg .ROUTE .STK-MED ONE Stop: 01/07/21 06:54 Dexamethasone (Dexamethasone 4 Mg/Ml Sdv) Confirm Administered Dose 4 mg .ROUTE .STK-MED ONE Stop: 01/11/21 06:57 Diphenhydramine HCl (Diphenhydramine 50 Mg/Ml Sdv) 50 mg IVPUSH ONETIME PRN PRN Reason: ALLERGIC RXN Stop: 01/06/21 21:00 Epinephrine HCl (Epinephrine 1 Mg/Ml Sdv) 0.3 mg IM ONETIME PRN PRN Reason: ALLERGIC RXN Stop: 01/06/21 21:00 Famotidine (Famotidine 20 Mg/2 Ml Sdv) 20 mg IV ONETIME PRN PRN Reason: ALLERGIC RXN Stop: 01/06/21 21:00 Fentanyl (Fentanyl 100 Mcg/2 Ml Sdv) Confirm Administered Dose 100 mcg .ROUTE .STK-MED ONE Stop: 01/07/21 06:52 Fentanyl (Fentanyl 100 Mcg/2 Ml Sdv) Confirm Administered Dose 200 mcg .ROUTE .STK-MED ONE Stop: 01/09/21 06:46 Fentanyl (Fentanyl 100 Mcg/2 Ml Sdv) 100 mcg .ROUTE .STK-MED ONE Stop: 01/09/21 07:01 Fentanyl (Fentanyl 100 Mcg/2 Ml Sdv) Confirm Administered Dose 100 mcg .ROUTE .STK-MED ONE Stop: 01/10/21 06:30 Fentanyl (Fentanyl 100 Mcg/2 Ml Sdv) Confirm Administered Dose 100 mcg .ROUTE .STK-MED ONE Stop: 01/11/21 06:57 Fentanyl (Fentanyl 100 Mcg/2 Ml Sdv) Confirm Administered Dose 100 mcg .ROUTE .STK-MED ONE Stop: 01/11/21 07:12 Furosemide (Furosemide 20 Mg/2 Ml Vial) 20 mg IVPUSH ONETIME ONE Stop: 01/07/21 14:01 Last Admin: 01/07/21 13:16 Dose: 20 mg Documented by: Furosemide (Furosemide 20 Mg/2 Ml Vial) 20 mg IVPUSH Q6H [facility] Stop: 01/08/21 15:01 Last Admin: 01/08/21 14:39 Dose: 20 mg Documented by: Furosemide (Furosemide 20 Mg/2 Ml Vial) 20 mg IVPUSH Q10H [facility] Stop: 01/09/21 20:01 Last Admin: 01/09/21 19:42 Dose: 20 mg Documented by: Glycopyrrolate (Glycopyrrolate 0.2 Mg/Ml 5 Ml Mdv) Confirm Administered Dose 1 mg .ROUTE .STK-MED ONE Stop: 01/07/21 06:54 Glycopyrrolate (Glycopyrrolate 0.2 Mg/Ml 5 Ml Mdv) Confirm Administered Dose 1 mg .ROUTE .STK-MED ONE Stop: 01/11/21 06:57 Heparin Sodium (Porcine) (Heparin Sodium 100 Units/Ml 5 Ml Syringe) Confirm Administered Dose 500 units .ROUTE .STK-MED ONE Stop: 01/07/21 07:03 Lactated Ringer's (Ringers, Lactated) 1,000 mls @ 100 mls/hr IV ASDIRECTED [facility] Lactated Ringer's (Ringers, Lactated) 1,000 mls @ 40 mls/hr IV ASDIRECTED [facility] Potassium Phosphate 15 mmol/ (Premix) 250 mls @ 85 mls/hr IV Q3H [facility] Stop: 01/06/21 13:57 Last Admin: 01/06/21 11:20 Dose: 85 mls/hr Documented by: Magnesium Sulfate 2 gm/ Premix 50 mls @ 25 mls/hr IV Q6H [facility] Stop: 01/06/21 17:59 Last Admin: 01/06/21 09:15 Dose: 25 mls/hr Documented by: Magnesium Sulfate 2 gm/ Premix 50 mls @ 25 mls/hr IV Q6H [facility] Stop: 01/06/21 15:59 Last Admin: 01/06/21 14:23 Dose: 25 mls/hr Documented by: Albumin Human (Albumin 25%) 25 gm in 100 mls @ 25 mls/hr IV Q24H [facility] Stop: 01/09/21 19:59 Last Admin: 01/09/21 16:06 Dose: 25 mls/hr Documented by: Ceftriaxone Sodium 2 gm/ (Sodium Chloride) 50 mls @ 100 mls/hr IV Q24H [facility] Stop: 01/07/21 16:00 Last Admin: 01/07/21 13:51 Dose: 100 mls/hr Documented by: Acetaminophen 1,000 mg/ Premix 100 mls @ 400 mls/hr IV Q8H PRN PRN Reason: Pain Stop: 01/07/21 19:14 Last Admin: 01/07/21 04:55 Dose: 400 mls/hr Documented by: Multivitamins/Minerals 10 ml/Zinc 1 ml/ Amino Ac/Electrol/Dextrose/Calcium 1,011 mls @ 82 mls/hr IV .BY DURATION [facility] Stop: 01/11/21 15:30 Last Admin: 01/10/21 17:54 Dose: 82 mls/hr Documented by: Amino Ac/Electrol/Dextrose/Calcium (Clinimix E 08/14) 1,000 mls @ 82 mls/hr IV .BY DURATION [facility] Stop: 01/11/21 15:30 Last Admin: 01/11/21 07:02 Dose: 82 mls/hr Documented by: Piperacillin/Tazobactam/ (Dextrose 3.375 gm/ Premix) 50 mls @ 100 mls/hr IV Q6H [facility] Last Admin: 01/11/21 10:28 Dose: Not Given Documented by: Potassium Phosphate 22.5 mmole (/ Sodium Chloride) 107.5 mls @ 30 mls/hr IV Q4H [facility] Stop: 01/08/21 17:34 Last Admin: 01/08/21 15:41 Dose: 30 mls/hr Documented by: Sodium Chloride (Normal Saline) Confirm Administered Dose 10 mls @ as directed .ROUTE .STK-MED ONE Stop: 01/09/21 06:49 Potassium Phosphate 30 mmole/ (Sodium Chloride) 110 mls @ 20 mls/hr IV ONETIME ONE Stop: 01/09/21 15:29 Last Admin: 01/09/21 11:16 Dose: 20 mls/hr Documented by: Magnesium Sulfate 2 gm/ Premix 50 mls @ 25 mls/hr IV Q6H [facility] Stop: 01/11/21 05:59 Last Admin: 01/11/21 04:46 Dose: 25 mls/hr Documented by: Potassium Phosphate 30 mmole/ (Sodium Chloride) 110 mls @ 20 mls/hr IV ONETIME ONE Stop: 01/10/21 16:29 Last Admin: 01/10/21 11:28 Dose: 20 mls/hr Documented by: Lidocaine HCl (Lidocaine 2% Jelly 10 Ml [employer]) Confirm Administered Dose 10 ml .ROUTE .STK-MED ONE Stop: 01/05/21 18:51 Last Admin: 01/05/21 19:33 Dose: Not Given Documented by: Lidocaine/Epinephrine (Lidocaine 1% With Epinephrine 1:100,000 50 Ml Mdv) Confirm Administered Dose 50 ml .ROUTE .STK-MED ONE Stop: 01/07/21 07:03 Lidocaine/Epinephrine (Lidocaine 1% With Epinephrine 1:100,000 50 Ml Mdv) Confirm Administered Dose 50 ml .ROUTE .STK-MED ONE Stop: 01/09/21 06:40 Meropenem (Meropenem 500 Mg Sdv) Confirm Administered Dose 500 mg .ROUTE .STK- MED ONE Stop: 01/07/21 08:33 Meropenem (Meropenem 500 Mg Sdv) Confirm Administered Dose 500 mg .ROUTE .STK- MED ONE Stop: 01/09/21 06:40 Last Admin: 01/09/21 08:00 Dose: 500 mg Documented by: Meropenem (Meropenem 500 Mg Sdv) Confirm Administered Dose 500 mg .ROUTE .STK- MED ONE Stop: 01/10/21 06:19 Last Admin: 01/10/21 07:31 Dose: 500 mg Documented by: Meropenem (Meropenem 500 Mg Sdv) Confirm Administered Dose 500 mg .ROUTE .STK- MED ONE Stop: 01/11/21 06:34 Methylprednisolone Sodium Succinate (Methylprednisolone Sodium Succinate 125 Mg/2 Ml Sdv) 125 mg IVPUSH ONETIME PRN PRN Reason: ALLERGIC RXN Stop: 01/06/21 21:00 Metoprolol Tartrate (Metoprolol Tartrate 5 Mg/5 Ml Sdv) 5 mg IVPUSH Q6H [facility] Last Admin: 01/08/21 11:23 Dose: Not Given Documented by: Neostigmine Methylsulfate (Neostigmine Methylsulfate 1 Mg/Ml 5 Ml Syringe) Confirm Administered Dose 5 mg .ROUTE .STK-MED ONE Stop: 01/07/21 06:54 Neostigmine Methylsulfate (Neostigmine Methylsulfate 1 Mg/Ml 5 Ml Syringe) Confirm Administered Dose 5 mg .ROUTE .STK-MED ONE Stop: 01/11/21 06:57 Non-Formulary Medication (Casirivimab 120 Mg/Ml Vial) 600 mg SUBCUT ONETIME ONE Stop: 01/06/21 13:01 Last Admin: 01/06/21 12:57 Dose: 600 mg Documented by: Non-Formulary Medication (Imdevimab 120 Mg/Ml Vial) 600 mg SUBCUT ONETIME ONE Stop: 01/06/21 13:01 Last Admin: 01/06/21 12:57 Dose: 600 mg Documented by: Ondansetron HCl (Ondansetron 4 Mg/2 Ml Sdv) Confirm Administered Dose 4 mg .ROUTE .STK-MED ONE Stop: 01/07/21 06:54 Ondansetron HCl (Ondansetron 4 Mg/2 Ml Sdv) Confirm Administered Dose 4 mg .ROUTE .STK-MED ONE Stop: 01/11/21 06:57 Phenylephrine HCl (Phenylephrine 1% 10 Mg/Ml Sdv) Confirm Administered Dose 10 mg .ROUTE .STK-MED ONE Stop: 01/09/21 06:48 Piperacillin Sod/Tazobactam Sod (Piperacillin/Tazobactam 3.375 Gm Vial) Confirm Administered Dose 3.375 gm .ROUTE .STK-MED ONE Stop: 01/07/21 08:41 Propafenone HCl (Propafenone 150 Mg Tab) 225 mg PO BID [facility] Last Admin: 01/05/21 21:18 Dose: 225 mg Documented by: Propofol (Propofol 200 Mg/20 Ml Sdv) Confirm Administered Dose 200 mg .ROUTE .STK-MED ONE Stop: 01/07/21 06:54 Propofol (Propofol 200 Mg/20 Ml Sdv) Confirm Administered Dose 400 mg .ROUTE .STK-MED ONE Stop: 01/09/21 06:47 Propofol (Propofol 200 Mg/20 Ml Sdv) 200 mg .ROUTE .STK-MED ONE Stop: 01/09/21 07:01 Propofol (Propofol 200 Mg/20 Ml Sdv) Confirm Administered Dose 200 mg .ROUTE .STK-MED ONE Stop: 01/10/21 06:30 Propofol (Propofol 200 Mg/20 Ml Sdv) Confirm Administered Dose 600 mg .ROUTE .STK-MED ONE Stop: 01/11/21 06:57 Rocuronium [place] (Rocuronium 50 Mg/5 Ml Vial) Confirm Administered Dose 50 mg .ROUTE .STK-MED ONE Stop: 01/07/21 06:54 Rocuronium [place] (Rocuronium 50 Mg/5 Ml Vial) Confirm Administered Dose 50 mg .ROUTE .STK-MED ONE Stop: 01/11/21 06:57 Rocuronium [place] (Rocuronium 50 Mg/5 Ml Vial) 50 mg IV .STK-MED ONE Stop: 01/10/21 07:01 Succinylcholine Chloride (Succinylcholine 200 Mg/10 Ml Mdv) Confirm Administered Dose 200 mg .ROUTE .STK-MED ONE Stop: 01/11/21 06:57 - Exam Central Line Total Time: 4Days 3Hours Urinary Catheter Total Time: 0Days 2Hours General: Alert, Cooperative, No Acute Distress HEENT: Pupils Equal, EOMI, Mucous Membr. Moist/[place] Neck: Supple, Trachea Midline Lungs: Clear to Auscultation, Normal Respiratory Effort Cardiovascular: Regular Rate, Regular Rhythm GI/Abdominal Exam: Normal Bowel Sounds, Soft, No Distention, Tender (In the lower quadrants near the newly placed suprapubic catheter) (Male) Exam: Scrotal Swelling, Other (Penile swelling) Extremities: Normal Inspection, Non-Tender, No Pedal Edema Skin: Warm, Dry, Intact Neurological: No New Focal Deficit Psy/Mental Status: Alert, Normal Affect, Normal Mood - Patient Data Lab Results Last 24 hrs: Laboratory Results - last 24 hr 01/11/21 01/11/21 Range/Units 04:40 04:40 WBC 8.2 (4.5-11.0) K/uL RBC 3.52 L (4.30-5.90) M/uL Hgb 9.4 L (12.0-15.0) g/dL Hct 31.3 L (40.0-54.0) % MCV 89 (80-98) fL MCH 27 (27-31) pg MCHC 30 L (32-36) % Plt Count 215 (150-400) K/uL Sodium 140 (140-148) mmol/L Potassium 4.5 (3.6-5.2) mmol/L Chloride 107 (100-108) mmol/L Carbon Dioxide 28 (21-32) mmol/L Anion Gap 4.8 L (5.0-14.0) mmol/L BUN 29 H (7-18) mg/dL Creatinine 0.9 (0.8-1.3) mg/dL Est Cr Clr Drug Dosing 49.35 mL/min Estimated GFR (MDRD) > 60 (>60) Glucose 105 (74-106) mg/dL Calcium 8.4 L (8.5-10.1) mg/dL Phosphorus 3.2 (2.5-4.9) mg/dL Magnesium 3.3 H (1.8-2.4) mg/dL Total Bilirubin 0.3 (0.2-1.0) mg/dL AST 40 H (15-37) U/L ALT 93 H (12-78) U/L Alkaline Phosphatase 79 (46-116) U/L NT-Pro-B Natriuret Pep 1752 H (5-450) pg/mL Total Protein 4.7 L (6.4-8.2) g/dL Albumin 2.2 L (3.4-5.0) g/dL Globulin 2.5 (2.3-3.5) g/dL Albumin/Globulin Ratio 0.9 L (1.2-2.2) Result Diagrams: 01/11/21 04:40 01/11/21 04:40 Brock Results Last 24 hrs: Microbiology 01/07/21 08:56 Gram Stain - Final Thigh, Right Wound Culture - Final Staphylococcus Simulans Viridans Streptococcus Anaerobic Culture - Final NO GROWTH AFTER 3 DAYS Sepsis Event Note - Evaluation Sepsis Screening Result: No Definite Risk - Focused Exam Vital Signs: Vital Signs Temp Pulse Resp BP Pulse Ox 01/11/21 19:46 95.9 F L 82 18 146/59 H 96 01/11/21 15:55 96.4 F L 69 16 134/53 L 98 01/11/21 13:04 80 16 134/51 L 98 01/11/21 13:00 96.4 F L 74 18 126/78 98 01/11/21 12:00 96.8 F L 78 16 117/64 96 01/11/21 11:30 18 121/62 01/11/21 10:45 16 121/54 L 01/11/21 10:25 96.6 F L 87 16 126/58 L 96 01/11/21 10:10 91 14 110/62 97 01/11/21 10:05 89 16 132/95 H 97 01/11/21 10:00 87 14 116/59 L 99 01/11/21 09:55 90 14 106/62 96 01/11/21 09:50 87 14 119/52 L 95 01/11/21 09:45 89 12 111/64 95 01/11/21 09:40 89 10 L 108/56 L 96 - Problem List & Annotations (1) Status post exploratory laparotomy SNOMED Code(s): 285436275, 45396979, 467531089 Code(s): Z98.890 - OTHER SPECIFIED POSTPROCEDURAL STATES Status: Acute Current Visit: Yes Annotation/Comment:: Drainage ofrectal/pelvic abscess (2) History of atrial fibrillation SNOMED Code(s): 203338870 Code(s): Z86.79 - PERSONAL HISTORY OF OTHER DISEASES OF THE CIRCULATORY SYSTEM Status: Chronic Current Visit: No (3) Essential hypertension SNOMED Code(s): 12252528 Code(s): I10 - ESSENTIAL (PRIMARY) HYPERTENSION Status: Chronic Current Visit: No - Problem List Review Problem List Initiated/Reviewed/Updated: Yes - Plan Plan:: ASSESSMENT AND RECOMMENDATIONS- Covid positive-no symptoms. -Not hypoxic and not febrile. 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 Triple-lumen catheter placed. Culture from the necrotic tissue was growing coag negative staph and strep viridans. Doing well since the most recent surgery. Getting dressing changes in the OR daily. -Empiric antibiotic coverage with Pip/Tazo and doxycycline initially and has been decreased to doxycycline to cover strep viridans which is susceptible -Management per surgical team Chronic atrial fibrillation-heart rate has been well controlled after transition to oral medications yesterday. -Continue metoprolol 25 mg twice a day -Propafenone 3 times a day -Discontinue cardiac monitoring Normocytic anemia-stable -probably related to recent surgery. -Some increased blood loss with the bladder injury -I would encourage a transfusion threshold of less than 8 unless hemodynamically unstable Probable urinary tract infection-urinalysis suggestive of infection with packed RBCs and white blood cells. This could explain some of the weakness and lethargy. Culture grew out strep viridans. -Should be covered by antibiotics as above VTE prophylaxis: Currently having hematuria GI prophylaxis: Not indicated Diet: Regular diet Plan: We will continue antibiotics a total of 10 days. Hien Fofana DO
--- NOTE | 2021-01-11 20:53 | OR ---
DATE OF PROCEDURE: 01/09/2021 SURGEON: Mohsen Duggan MD PREOPERATIVE DIAGNOSIS: Large open perineal and pelvic wound. 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 OPERATIVE PROCEDURES: Exploration of open perineal and pelvic wound with: 1. Debridement of necrotic tissue along the edges of the perineal wound (subcutaneous tissue and muscular fascia) (46096). 2. Dressing change under anesthesia (31317). ANESTHESIA: Local plus IV sedation. INDICATION FOR PROCEDURE: The patient had attempted to have a dressing change in his pelvic and perineal wound yesterday, but was far too uncomfortable to allow that to be more adequately conducted. Due to this reason, he will be brought to the operating room today for dressing change with some IV sedation. Potential risks including bleeding and infection were further reviewed with the patient and and they wished to proceed. DETAILS OF PROCEDURE: The patient was taken to the operating room, placed in a semi-sitting position in a lithotomy position. The previous packing was taken out. Wound was inspected. There was some necrotic soft tissue consisting of old fascia and muscle along with some subcutaneous tissue along the edges and posteriorly of the open wound somewhat inside the level of the skin. This thoroughly was debrided, was otherwise irrigated with meropenem- containing saline solution, and the wound packed with iodoform gauze. The patient tolerated the procedure well and was taken to the recovery room in satisfactory condition. Mohsen Duggan MD /[id number]
[2021-01-11] MEDS: Melatonin 3 MG Tab PO SCH (21:41)
[2021-01-12] MEDS ORDERED: Meropenem 500 MG SDV ONE (06:35)
[2021-01-12] MEDS ORDERED: Propofol 200 MG/20 ML SDV ONE (07:00)
--- NOTE | 2021-01-12 07:36 | PN ---
DATE OF SERVICE: 01/12/2021 SUBJECTIVE: Arnie will be going down for a dressing change today. His vital signs have been stable. Oral intake 1070. Urine output through a suprapubic catheter 2325. His perineal dressings have been saturated, requiring dressing changes every 3 hours. REVIEW OF SYSTEMS: Remainder of review of systems negative for any pertinent positives and negatives. OBJECTIVE: GENERAL: Arnie Infante is an 89-year-old male. He is more alert today. VITAL SIGNS: TPR is 97.3, 82, 20, blood pressure 159/56. HEART: Regular rate and rhythm. LUNGS: Clear. ASSESSMENT: 1. Suprapubic with cystostomy repair. 2. Repair of urethra and dressing change, 01/11/2021. Surgeon: Mohsen Duggan MD. PLAN: Orders to be written after dressing change done in OR today. He is to continue receiving same TPN. One unit of packed red blood cells will be ordered with Lasix 20 mg IV after the packed red blood cells. Labs in a.m. We will evaluate p.r.n. or in a.m. Tisha Crocker PA-C /[id number]
--- NOTE | 2021-01-12 07:56 | PN ---
DATE OF SERVICE: 01/11/2021 SUBJECTIVE: Arnie had debridement of necrotic tissue and dressing change under anesthesia on 01/10/2021. He is showing some confusion. Staff is questioning whether or not he could be hallucinating. He did report pain when sitting in a chair. He vocalizes no other reports. OBJECTIVE: GENERAL: Arnie is an 89-year-old male, somewhat confused today. VITAL SIGNS: TPR 97, 76, 16, blood pressure 128/42, O2 sats by pulse oximetry is 96% on 5 L at 0940. HEART: Regular rate and rhythm. LUNGS: Clear, but shallow respirations. PLAN: 1. Orders to be written after dressing changes in OR. Written by Mohsen Duggan MD. 2. We will evaluate p.r.n. or in a.m. Tisha Crocker PA-C /[id number]
[2021-01-12] MEDS: traMADol 50 MG Tab PO PRN ×2 (08:37→17:24)
[2021-01-12] MEDS: 1: AA 5%/Calcium/D15W/Lytes 1,000 ML with MVI, Adult with Vitamin K 10 ML, Zinc/Copper/M IV SCH ×6 (08:42→21:17)
[2021-01-12] MEDS: Pantoprazole 40 MG Tab.CR PO SCH (08:55)
[2021-01-12] MEDS: Metoprolol Tartrate 25 MG Tab PO SCH ×2 (09:49→21:16)
[2021-01-12] MEDS: Potassium Chloride 20 MEQ Tab.ER PO SCH (09:49)
[2021-01-12] MEDS: Lactobacillus Rhamnosus GG (Probiotic) Cap PO SCH (09:49)
[2021-01-12] MEDS: Doxycycline 100 MG in Sodium Chloride 0.9% 100 ML IV SCH ×2 (09:49→21:17)
[2021-01-12] MEDS: Acetaminophen 500 MG Tab PO SCH ×3 (09:50→21:16)
[2021-01-12] MEDS ORDERED: Central Total Parenteral Nutrition Bag IV ONE (11:30)
[2021-01-12] MEDS ORDERED: Furosemide 20 MG/2 ML VIAL IV ONE (14:00)
--- NOTE | 2021-01-12 17:35 | PCM.PN ---
- General Info Date of Service: 01/12/21 Admission Dx/Problem (Free Text): Admission Diagnosis/Problem Admission Diagnosis/Problem Weakness Subjective Update: Mr. Infante was sitting up in bed and appeared to be doing well today. He was complaining of pain in the buttock region associated with the surgical wound. He denied having any abdominal pain today. His urine was a light yellow today with no obvious signs of residual blood. The nurses have made mention of him possibly hallucinating stating that he could see tigers a day ago. This may represent some level of delirium. As I am aware he did this happened shortly after returning from his surgery therefore it could also have been due to coming out of anesthesia. I have not witnessed him having any hallucinations. He does have some confusion however he has baseline dementia. - Review of Systems General: Reports: No Symptoms HEENT: Reports: No Symptoms Pulmonary: Reports: No Symptoms Cardiovascular: Reports: No Symptoms Gastrointestinal: Reports: No Symptoms Genitourinary: Reports: Other (Buttock pain in the region of the surgical wound) Musculoskeletal: Reports: No Symptoms Skin: Reports: No Symptoms Neurological: Reports: No Symptoms Psychiatric: Reports: No Symptoms - Patient Data Vitals - Most Recent: Last Vital Signs Temp 96.8 F L 01/12/21 16:04 Pulse 75 01/12/21 16:04 Resp 16 01/12/21 16:04 BP 128/65 01/12/21 16:04 Pulse Ox 96 01/12/21 16:04 Weight - Most Recent: 210 lb I&O - Last 24 Hours: Intake & Output 01/12/21 01/12/21 01/12/21 06:59 14:59 22:59 Intake Total 1943 25 782 Output Total 900 1150 Balance 1043 -1125 782 Lab Results Last 24 Hours: Laboratory Results - last 24 hr 01/12/21 01/12/21 01/12/21 Range/Units 04:30 04:30 04:30 WBC 9.8 (4.5-11.0) K/uL RBC 3.33 L (4.30-5.90) M/uL Hgb 9.1 L (12.0-15.0) g/dL Hct 29.8 L (40.0-54.0) % MCV 90 (80-98) fL MCH 27 (27-31) pg MCHC 31 L (32-36) % Plt Count 210 (150-400) K/uL Neut % (Auto) 86.9 H (36-66) % Lymph % (Auto) 3.5 L (24-44) % [place] % (Auto) 9.4 H (2-6) % Eos % (Auto) 0.1 L (2-4) % Baso % (Auto) 0.1 (0-1) % Sodium 139 L (140-148) mmol/L Potassium 4.7 (3.6-5.2) mmol/L Chloride 107 (100-108) mmol/L Carbon Dioxide 27 (21-32) mmol/L Anion Gap 9.7 (5.0-14.0) mmol/L BUN 25 H (7-18) mg/dL Creatinine 0.7 L (0.8-1.3) mg/dL Est Cr Clr Drug Dosing 63.45 mL/min Estimated GFR (MDRD) > 60 (>60) Glucose 134 H (74-106) mg/dL Calcium 8.9 (8.5-10.1) mg/dL Phosphorus 2.8 (2.5-4.9) mg/dL Magnesium 2.2 (1.8-2.4) mg/dL Total Bilirubin 0.3 (0.2-1.0) mg/dL AST 26 (15-37) U/L ALT 66 (12-78) U/L Alkaline Phosphatase 78 (46-116) U/L NT-Pro-B Natriuret Pep 2332 H (5-450) pg/mL Total Protein 4.8 L (6.4-8.2) g/dL Albumin 2.3 L (3.4-5.0) g/dL Globulin 2.5 (2.3-3.5) g/dL Albumin/Globulin Ratio 0.9 L (1.2-2.2) Blood Type A NEGATIVE Gel Antibody Screen Negative Crossmatch See Detail Med Orders - Current: Current Medications Acetaminophen (Acetaminophen 500 Mg Tab) 1,000 mg PO TID [facility] Last Admin: 01/12/21 13:20 Dose: 1,000 mg Documented by: Haloperidol Lactate (Haloperidol Lactate 5 Mg/Ml Sdv) 2.5 mg IVPUSH Q4H PRN PRN Reason: Agitation Heparin Sodium (Porcine) (Heparin Sodium 100 Units/Ml 5 Ml Syringe) 300 units FLUSH ASDIRECTED PRN PRN Reason: IV Use Last Admin: 01/07/21 14:49 Dose: 300 units Documented by: Lactated Ringer's (Ringers, Lactated) 1,000 mls @ 25 mls/hr IV ASDIRECTED [facility] Last Admin: 01/07/21 14:52 Dose: 25 mls/hr Documented by: Doxycycline Hyclate 100 mg/ (Sodium Chloride) 100 mls @ 100 mls/hr IV Q12H [facility] Last Admin: 01/12/21 09:49 Dose: 100 mls/hr Documented by: Multivitamins/Minerals 10 ml/Zinc 1 ml/ Amino Ac/Electrol/Dextrose/Calcium 1,011 mls @ 82 mls/hr IV .BY DURATION [facility] Last Admin: 01/11/21 19:45 Dose: 82 mls/hr Documented by: Amino Ac/Electrol/Dextrose/Calcium (Clinimix E 5/15) 1,000 mls @ 82 mls/hr IV .BY DURATION [facility] Last Admin: 01/12/21 08:42 Dose: 82 mls/hr Documented by: Albumin Human (Albumin 25%) 25 gm in 100 mls @ 25 mls/hr IV Q24H [facility] Stop: 01/15/21 16:59 Last Admin: 01/12/21 13:20 Dose: 25 mls/hr Documented by: Lactobacillus Rhamnosus (Lactobacillus Rhamnosus Gg (Probiotic) Cap) 2 cap PO DAILY [facility] Last Admin: 01/12/21 09:49 Dose: Not Given Documented by: Melatonin (Melatonin 3 Mg Tab) 9 mg PO BEDTIME [facility] Last Admin: 01/11/21 21:41 Dose: 9 mg Documented by: Metoprolol Tartrate (Metoprolol Tartrate 25 Mg Tab) 25 mg PO BID [facility] Last Admin: 01/12/21 09:49 Dose: Not Given Documented by: Morphine Sulfate (Morphine 2 Mg/Ml Syringe) 2 mg IVPUSH Q2H PRN PRN Reason: Pain Last Admin: 01/06/21 15:03 Dose: 2 mg Documented by: Ondansetron HCl (Ondansetron 4 Mg/2 Ml Sdv) 4 mg IVPUSH Q4H PRN PRN Reason: Nausea Pantoprazole Sodium (Pantoprazole 40 Mg Tab.Cr) 40 mg PO ACBREAKFAST [facility] Last Admin: 01/12/21 08:55 Dose: Not Given Documented by: Potassium Chloride (Potassium Chloride 20 Meq Tab.Er) 40 meq PO DAILY [facility] Last Admin: 01/12/21 09:49 Dose: Not Given Documented by: Propafenone HCl (Propafenone 150 Mg Tab) 225 mg PO TID [facility] Last Admin: 01/12/21 13:19 Dose: 225 mg Documented by: Tramadol HCl (Tramadol 50 Mg Tab) 50 mg PO Q6H PRN PRN Reason: Pain Last Admin: 01/12/21 08:37 Dose: 50 mg Documented by: Discontinued Medications Acetaminophen (Acetaminophen 500 Mg Tab) 1,000 mg PO TID [facility] Last Admin: 01/07/21 11:48 Dose: Not Given Documented by: Acetaminophen (Acetaminophen 325 Mg Tab) 650 mg PO ONETIME PRN PRN Reason: HEADACHE,CHILLS Stop: 01/06/21 21:00 Acetaminophen (Acetaminophen 500 Mg Tab) 1,000 mg PO Q8H PRN PRN Reason: PAIN Last Admin: 01/08/21 04:30 Dose: 1,000 mg Documented by: Bupivacaine HCl (Bupivacaine 0.5% 50 Ml Mdv) Confirm Administered Dose 50 ml .ROUTE .STK-MED ONE Stop: 01/07/21 07:03 Bupivacaine HCl (Bupivacaine 0.5% 50 Ml Mdv) Confirm Administered Dose 50 ml .ROUTE .STK-MED ONE Stop: 01/09/21 06:40 Bupivacaine HCl/Epinephrine Bitart (Bupivacaine 0.5%/Epinephrine 1:200,000 50 Ml Mdv) Confirm Administered Dose 50 ml .ROUTE .STK-MED ONE Stop: 01/11/21 07:54 Dexamethasone (Dexamethasone 4 Mg/Ml Sdv) Confirm Administered Dose 4 mg .ROUTE .STK-MED ONE Stop: 01/07/21 06:54 Dexamethasone (Dexamethasone 4 Mg/Ml Sdv) Confirm Administered Dose 4 mg .ROUTE .STK-MED ONE Stop: 01/11/21 06:57 Diphenhydramine HCl (Diphenhydramine 50 Mg/Ml Sdv) 50 mg IVPUSH ONETIME PRN PRN Reason: ALLERGIC RXN Stop: 01/06/21 21:00 Epinephrine HCl (Epinephrine 1 Mg/Ml Sdv) 0.3 mg IM ONETIME PRN PRN Reason: ALLERGIC RXN Stop: 01/06/21 21:00 Famotidine (Famotidine 20 Mg/2 Ml Sdv) 20 mg IV ONETIME PRN PRN Reason: ALLERGIC RXN Stop: 01/06/21 21:00 Fentanyl (Fentanyl 100 Mcg/2 Ml Sdv) Confirm Administered Dose 100 mcg .ROUTE .STK-MED ONE Stop: 01/07/21 06:52 Fentanyl (Fentanyl 100 Mcg/2 Ml Sdv) Confirm Administered Dose 200 mcg .ROUTE .STK-MED ONE Stop: 01/09/21 06:46 Fentanyl (Fentanyl 100 Mcg/2 Ml Sdv) 100 mcg .ROUTE .STK-MED ONE Stop: 01/09/21 07:01 Fentanyl (Fentanyl 100 Mcg/2 Ml Sdv) Confirm Administered Dose 100 mcg .ROUTE .STK-MED ONE Stop: 01/10/21 06:30 Fentanyl (Fentanyl 100 Mcg/2 Ml Sdv) Confirm Administered Dose 100 mcg .ROUTE .STK-MED ONE Stop: 01/11/21 06:57 Fentanyl (Fentanyl 100 Mcg/2 Ml Sdv) Confirm Administered Dose 100 mcg .ROUTE .STK-MED ONE Stop: 01/11/21 07:12 Furosemide (Furosemide 20 Mg/2 Ml Vial) 20 mg IVPUSH ONETIME ONE Stop: 01/07/21 14:01 Last Admin: 01/07/21 13:16 Dose: 20 mg Documented by: Furosemide (Furosemide 20 Mg/2 Ml Vial) 20 mg IVPUSH Q6H MARCELO Stop: 01/08/21 15:01 Last Admin: 01/08/21 14:39 Dose: 20 mg Documented by: Furosemide (Furosemide 20 Mg/2 Ml Vial) 20 mg IVPUSH Q10H MARCELO Stop: 01/09/21 20:01 Last Admin: 01/09/21 19:42 Dose: 20 mg Documented by: Furosemide (Furosemide 20 Mg/2 Ml Vial) 20 mg IV ONETIME ONE Stop: 01/12/21 14:01 Last Admin: 01/12/21 13:20 Dose: 20 mg Documented by: Glycopyrrolate (Glycopyrrolate 0.2 Mg/Ml 5 Ml Mdv) Confirm Administered Dose 1 mg .ROUTE .STK-MED ONE Stop: 01/07/21 06:54 Glycopyrrolate (Glycopyrrolate 0.2 Mg/Ml 5 Ml Mdv) Confirm Administered Dose 1 mg .ROUTE .STK-MED ONE Stop: 01/11/21 06:57 Heparin Sodium (Porcine) (Heparin Sodium 100 Units/Ml 5 Ml Syringe) Confirm Administered Dose 500 units .ROUTE .STK-MED ONE Stop: 01/07/21 07:03 Lactated Ringer's (Ringers, Lactated) 1,000 mls @ 100 mls/hr IV ASDIRECTED MARCELO Lactated Ringer's (Ringers, Lactated) 1,000 mls @ 40 mls/hr IV ASDIRECTED MARCELO Potassium Phosphate 15 mmol/ (Premix) 250 mls @ 85 mls/hr IV Q3H [facility] Stop: 01/06/21 13:57 Last Admin: 01/06/21 11:20 Dose: 85 mls/hr Documented by: Magnesium Sulfate 2 gm/ Premix 50 mls @ 25 mls/hr IV Q6H [facility] Stop: 01/06/21 17:59 Last Admin: 01/06/21 09:15 Dose: 25 mls/hr Documented by: Magnesium Sulfate 2 gm/ Premix 50 mls @ 25 mls/hr IV Q6H [facility] Stop: 01/06/21 15:59 Last Admin: 01/06/21 14:23 Dose: 25 mls/hr Documented by: Albumin Human (Albumin 25%) 25 gm in 100 mls @ 25 mls/hr IV Q24H [facility] Stop: 01/09/21 19:59 Last Admin: 01/09/21 16:06 Dose: 25 mls/hr Documented by: Ceftriaxone Sodium 2 gm/ (Sodium Chloride) 50 mls @ 100 mls/hr IV Q24H [facility] Stop: 01/07/21 16:00 Last Admin: 01/07/21 13:51 Dose: 100 mls/hr Documented by: Acetaminophen 1,000 mg/ Premix 100 mls @ 400 mls/hr IV Q8H PRN PRN Reason: Pain Stop: 01/07/21 19:14 Last Admin: 01/07/21 04:55 Dose: 400 mls/hr Documented by: Multivitamins/Minerals 10 ml/Zinc 1 ml/ Amino Ac/Electrol/Dextrose/Calcium 1,011 mls @ 82 mls/hr IV .BY DURATION [facility] Stop: 01/11/21 15:30 Last Admin: 01/10/21 17:54 Dose: 82 mls/hr Documented by: Amino Ac/Electrol/Dextrose/Calcium (Clinimix E 08/14) 1,000 mls @ 82 mls/hr IV .BY DURATION [facility] Stop: 01/11/21 15:30 Last Admin: 01/11/21 07:02 Dose: 82 mls/hr Documented by: Piperacillin/Tazobactam/ (Dextrose 3.375 gm/ Premix) 50 mls @ 100 mls/hr IV Q6H [facility] Last Admin: 01/11/21 10:28 Dose: Not Given Documented by: Potassium Phosphate 22.5 mmole (/ Sodium Chloride) 107.5 mls @ 30 mls/hr IV Q4H [facility] Stop: 01/08/21 17:34 Last Admin: 01/08/21 15:41 Dose: 30 mls/hr Documented by: Sodium Chloride (Normal Saline) Confirm Administered Dose 10 mls @ as directed .ROUTE .STK-MED ONE Stop: 01/09/21 06:49 Potassium Phosphate 30 mmole/ (Sodium Chloride) 110 mls @ 20 mls/hr IV ONETIME ONE Stop: 01/09/21 15:29 Last Admin: 01/09/21 11:16 Dose: 20 mls/hr Documented by: Magnesium Sulfate 2 gm/ Premix 50 mls @ 25 mls/hr IV Q6H [facility] Stop: 01/11/21 05:59 Last Admin: 01/11/21 04:46 Dose: 25 mls/hr Documented by: Potassium Phosphate 30 mmole/ (Sodium Chloride) 110 mls @ 20 mls/hr IV ONETIME ONE Stop: 01/10/21 16:29 Last Admin: 01/10/21 11:28 Dose: 20 mls/hr Documented by: Lidocaine HCl (Lidocaine 2% Jelly 10 Ml [employer]) Confirm Administered Dose 10 ml .ROUTE .STK-MED ONE Stop: 01/05/21 18:51 Last Admin: 01/05/21 19:33 Dose: Not Given Documented by: Lidocaine/Epinephrine (Lidocaine 1% With Epinephrine 1:100,000 50 Ml Mdv) Confirm Administered Dose 50 ml .ROUTE .STK-MED ONE Stop: 01/07/21 07:03 Lidocaine/Epinephrine (Lidocaine 1% With Epinephrine 1:100,000 50 Ml Mdv) Confirm Administered Dose 50 ml .ROUTE .STK-MED ONE Stop: 01/09/21 06:40 Meropenem (Meropenem 500 Mg Sdv) Confirm Administered Dose 500 mg .ROUTE .STK- MED ONE Stop: 01/07/21 08:33 Meropenem ([place] 500 Mg Sdv) Confirm Administered Dose 500 mg .ROUTE .STK-MED ONE Stop: 01/09/21 06:40 Last Admin: 01/09/21 08:00 Dose: 500 mg Documented by: Meropenem ([place] 500 Mg Sdv) Confirm Administered Dose 500 mg .ROUTE .STK- MED ONE Stop: 01/10/21 06:19 Last Admin: 01/10/21 07:31 Dose: 500 mg Documented by: [place]openem ([place] 500 Mg Sdv) Confirm Administered Dose 500 mg .ROUTE .STK- MED ONE Stop: 01/11/21 06:34 [place]openem ([place] 500 Mg Sdv) Confirm Administered Dose 500 mg .ROUTE .STK- MED ONE Stop: 01/12/21 06:36 Methylprednisolone Sodium Succinate (Methylprednisolone Sodium Succinate 125 Mg/2 Ml Sdv) 125 mg IVPUSH ONETIME PRN PRN Reason: ALLERGIC RXN Stop: 01/06/21 21:00 Metoprolol Tartrate (Metoprolol Tartrate 5 Mg/5 Ml Sdv) 5 mg IVPUSH Q6H MARCELO Last Admin: 01/08/21 11:23 Dose: Not Given Documented by: Neostigmine Methylsulfate (Neostigmine Methylsulfate 1 Mg/Ml 5 Ml Syringe) Confirm Administered Dose 5 mg .ROUTE .STK-MED ONE Stop: 01/07/21 06:54 Neostigmine Methylsulfate (Neostigmine Methylsulfate 1 Mg/Ml 5 Ml Syringe) Conf irm Administered Dose 5 mg .ROUTE .STK-MED ONE Stop: 01/11/21 06:57 Non-Formulary Medication (Casirivimab 120 Mg/Ml Vial) 600 mg SUBCUT ONETIME ONE Stop: 01/06/21 13:01 Last Admin: 01/06/21 12:57 Dose: 600 mg Documented by: Non-Formulary Medication (Imdevimab 120 Mg/Ml Vial) 600 mg SUBCUT ONETIME ONE Stop: 01/06/21 13:01 Last Admin: 01/06/21 12:57 Dose: 600 mg Documented by: Non-Formulary Medication (Central Total Parenteral Nutrition Bag) 0 ml IV ONETIME ONE Stop: 01/12/21 11:31 Last Admin: 01/12/21 13:10 Dose: Not Given Documented by: Ondansetron HCl (Ondansetron 4 Mg/2 Ml Sdv) Confirm Administered Dose 4 mg .ROUTE .STK-MED ONE Stop: 01/07/21 06:54 Ondansetron HCl (Ondansetron 4 Mg/2 Ml Sdv) Confirm Administered Dose 4 mg .ROUTE .STK-MED ONE Stop: 01/11/21 06:57 Phenylephrine HCl (Phenylephrine 1% 10 Mg/Ml Sdv) Confirm Administered Dose 10 mg .ROUTE .STK-MED ONE Stop: 01/09/21 06:48 Piperacillin Sod/Tazobactam Sod (Piperacillin/Tazobactam 3.375 Gm Vial) Confirm Administered Dose 3.375 gm .ROUTE .STK-MED ONE Stop: 01/07/21 08:41 Propafenone HCl (Propafenone 150 Mg Tab) 225 mg PO BID MARCELO Last Admin: 01/05/21 21:18 Dose: 225 mg Documented by: Propofol (Propofol 200 Mg/20 Ml Sdv) Confirm Administered Dose 200 mg .ROUTE .STK-MED ONE Stop: 01/07/21 06:54 Propofol (Propofol 200 Mg/20 Ml Sdv) Confirm Administered Dose 400 mg .ROUTE .STK-MED ONE Stop: 01/09/21 06:47 Propofol (Propofol 200 Mg/20 Ml Sdv) 200 mg .ROUTE .STK-MED ONE Stop: 01/09/21 07:01 Propofol (Propofol 200 Mg/20 Ml Sdv) Confirm Administered Dose 200 mg .ROUTE .STK-MED ONE Stop: 01/10/21 06:30 Propofol (Propofol 200 Mg/20 Ml Sdv) Confirm Administered Dose 600 mg .ROUTE .STK-MED ONE Stop: 01/11/21 06:57 Rocuronium [place] (Rocuronium 50 Mg/5 Ml Vial) Confirm Administered Dose 50 mg .ROUTE .STK-MED ONE Stop: 01/07/21 06:54 Rocuronium [place] (Rocuronium 50 Mg/5 Ml Vial) Confirm Administered Dose 50 mg .ROUTE .STK-MED ONE Stop: 01/11/21 06:57 Rocuronium [place] (Rocuronium 50 Mg/5 Ml Vial) 50 mg IV .[employer] ONE Stop: 01/10/21 07:01 Succinylcholine Chloride (Succinylcholine 200 Mg/10 Ml Mdv) Confirm Administered Dose 200 mg .ROUTE .[employer] ONE Stop: 01/11/21 06:57 - Exam Central Line Total Time: 5Days 1Hours Urinary Catheter Total Time: 0Days 23Hours General: Alert, Cooperative, No Acute Distress HEENT: Pupils Equal, EOMI, Mucous Membr. Moist/[place] Neck: Supple, Trachea Midline Lungs: Clear to Auscultation, Normal Respiratory Effort Cardiovascular: Regular Rate, Regular Rhythm GI/Abdominal Exam: Normal Bowel Sounds, Soft, Non-Tender, No Distention Extremities: Normal Inspection, Non-Tender, No Pedal Edema Skin: Warm, Dry, Intact Neurological: No New Focal Deficit Psy/Mental Status: Alert, Normal Affect, Normal Mood - Patient Data Lab Results Last 24 hrs: Laboratory Results - last 24 hr 01/12/21 01/12/21 01/12/21 Range/Units 04:30 04:30 04:30 WBC 9.8 (4.5-11.0) K/uL RBC 3.33 L (4.30-5.90) M/uL Hgb 9.1 L (12.0-15.0) g/dL Hct 29.8 L (40.0-54.0) % MCV 90 (80-98) fL MCH 27 (27-31) pg MCHC 31 L (32-36) % Plt Count 210 (150-400) K/uL Neut % (Auto) 86.9 H (36-66) % Lymph % (Auto) 3.5 L (24-44) % [place] % (Auto) 9.4 H (2-6) % Eos % (Auto) 0.1 L (2-4) % Baso % (Auto) 0.1 (0-1) % Sodium 139 L (140-148) mmol/L Potassium 4.7 (3.6-5.2) mmol/L Chloride 107 (100-108) mmol/L Carbon Dioxide 27 (21-32) mmol/L Anion Gap 9.7 (5.0-14.0) mmol/L BUN 25 H (7-18) mg/dL Creatinine 0.7 L (0.8-1.3) mg/dL Est Cr Clr Drug Dosing 63.45 mL/min Estimated GFR (MDRD) > 60 (>60) Glucose 134 H (74-106) mg/dL Calcium 8.9 (8.5-10.1) mg/dL Phosphorus 2.8 (2.5-4.9) mg/dL Magnesium 2.2 (1.8-2.4) mg/dL Total Bilirubin 0.3 (0.2-1.0) mg/dL AST 26 (15-37) U/L ALT 66 (12-78) U/L Alkaline Phosphatase 78 (46-116) U/L NT-Pro-B Natriuret Pep 2332 H (5-450) pg/mL Total Protein 4.8 L (6.4-8.2) g/dL Albumin 2.3 L (3.4-5.0) g/dL Globulin 2.5 (2.3-3.5) g/dL Albumin/Globulin Ratio 0.9 L (1.2-2.2) Blood Type A NEGATIVE Gel Antibody Screen Negative Crossmatch See Detail Result Diagrams: 01/12/21 04:30 01/12/21 04:30 Sepsis Event Note - Evaluation Sepsis Screening Result: No Definite Risk - Focused Exam Vital Signs: Vital Signs Temp Temp Pulse Pulse Resp BP Pulse Ox 01/12/21 16:04 96.8 F L 75 16 128/65 96 01/12/21 15:57 96.6 F L 60 16 134/52 L 97 01/12/21 15:30 97.0 F 72 16 136/67 95 01/12/21 15:00 96.8 F L 87 16 126/56 L 97 01/12/21 14:33 96.8 F L 88 16 150/71 H 97 01/12/21 14:16 96.6 F L 66 16 141/75 H 94 L 01/12/21 14:00 96.6 F L 72 16 145/59 H 97 01/12/21 13:49 96.8 F L 78 18 151/58 H 95 01/12/21 13:19 86 01/12/21 11:02 97.2 F 86 16 159/55 H 96 01/12/21 09:30 74 18 156/50 H 01/12/21 09:00 64 18 159/64 H 98 01/12/21 08:46 56 L 16 143/53 H 99 01/12/21 08:30 95.5 F L 73 16 150/59 H 99 01/12/21 08:10 78 16 98 01/12/21 08:05 75 14 120/64 100 01/12/21 08:00 77 12 106/57 L 100 01/12/21 07:55 80 14 102/42 L 100 01/12/21 07:50 80 12 101/45 L 100 - Problem List & Annotations (1) Status post exploratory laparotomy SNOMED Code(s): 906592514, 39160616, 597132230 Code(s): Z98.890 - OTHER SPECIFIED POSTPROCEDURAL STATES Status: Acute Current Visit: Yes Annotation/Comment:: Drainage ofrectal/pelvic abscess (2) History of atrial fibrillation SNOMED Code(s): 888453666 Code(s): Z86.79 - PERSONAL HISTORY OF OTHER DISEASES OF THE CIRCULATORY SYSTEM Status: Chronic Current Visit: No (3) Essential hypertension SNOMED Code(s): 36217886 Code(s): I10 - ESSENTIAL (PRIMARY) HYPERTENSION Status: Chronic Current Visit: No - Problem List Review Problem List Initiated/Reviewed/Updated: Yes - Plan Plan:: ASSESSMENT AND RECOMMENDATIONS- Covid positive-no symptoms. -Not hypoxic and not febrile. 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 Triple-lumen catheter placed. Culture from the necrotic tissue was growing coag negative staph and strep viridans. Doing well since the most recent surgery. Getting dressing changes in the OR daily. -Empiric antibiotic coverage with Pip/Tazo and doxycycline initially and has been decreased to doxycycline to cover strep viridans which is susceptible -Management per surgical team Chronic atrial fibrillation-heart rate has been well controlled after transition to oral medications yesterday. -Continue metoprolol 25 mg twice a day -Propafenone 3 times a day -Discontinue cardiac monitoring Normocytic anemia-stable -probably related to recent surgery. -Some increased blood loss with the bladder injury -I would encourage a transfusion threshold of less than 8 unless hemodynamically unstable -Did receive blood today Probable urinary tract infection-urinalysis suggestive of infection with packed RBCs and white blood cells. This could explain some of the weakness and let hargy. Culture grew out strep viridans. -Should be covered by antibiotics as above VTE prophylaxis: Not indicated GI prophylaxis: Not indicated Diet: Soft diet Plan: Unless anything changes there will be no change in his current care from an IM perspective. we will continue antibiotics a total of 10 days. Hien Fofana, DO
[2021-01-12] MEDS: Melatonin 3 MG Tab PO SCH (21:16)
[2021-01-13] MEDS: traMADol 50 MG Tab PO PRN ×2 (00:04→10:18)
[2021-01-13] MEDS ORDERED: Meropenem 500 MG SDV ONE (06:44)
[2021-01-13] MEDS ORDERED: Propofol 200 MG/20 ML SDV ONE (07:05)
[2021-01-13] MEDS ORDERED: fentaNYL 100 MCG/2 ML SDV ONE (07:12)
[2021-01-13] MEDS: Lactobacillus Rhamnosus GG (Probiotic) Cap PO SCH (08:48)
[2021-01-13] MEDS: Pantoprazole 40 MG Tab.CR PO SCH (08:48)
[2021-01-13] MEDS ORDERED: Furosemide 20 MG/2 ML VIAL IVPUSH ONE (09:15)
[2021-01-13] MEDS: 1: AA 5%/Calcium/D15W/Lytes 1,000 ML with MVI, Adult with Vitamin K 10 ML, Zinc/Copper/M IV SCH ×6 (09:56→22:49)
[2021-01-13] MEDS: Potassium Chloride 20 MEQ Tab.ER PO SCH ×2 (09:57→13:22)
[2021-01-13] MEDS: Metoprolol Tartrate 25 MG Tab PO SCH ×3 (09:57→21:41)
[2021-01-13] MEDS: Acetaminophen 500 MG Tab PO SCH ×3 (09:58→21:37)
[2021-01-13] MEDS: Doxycycline 100 MG in Sodium Chloride 0.9% 100 ML IV SCH ×2 (10:16→21:42)
--- NOTE | 2021-01-13 11:00 | PN ---
DATE OF SERVICE: 01/13/2021 SUBJECTIVE: Arnie has had a pretty good night. He has had less drainage on the packing in the perineal area. BNP is 2881. He had 3850 out of his suprapubic catheter. Oral intake was 840 and he had 80 mL of liquid stool out of his ostomy. He is n.p.o. and will be going down to the OR for dressing change under sedation. REVIEW OF SYSTEMS: Remainder of review of systems negative for any pertinent positives or negatives. OBJECTIVE: GENERAL: Arnie is an 89-year-old male. He is sleepy this morning but alert. VITAL SIGNS: TPR is 97.9, 73, 20, blood pressure 141/49. HEART: Regular rate and rhythm. LUNGS: Clear. RECTAL: Perineal exam will be done when packing is changed in the OR. PLAN: Orders to be written after dressing change in OR. We will evaluate p.r.n. or in a.. Tisha Crocker PA-C /[id number]
--- NOTE | 2021-01-13 11:51 | CR ---
Fluoro Up To 1Hr CLINICAL HISTORY: Cystogram FINDINGS: Single fluoroscopy image for the use of the surgeon ,of the low pelvis was performed AP during injection through the suprapubic catheter into the bladder. There is also a Gan catheter in place. Fluoroscopy time was 132 seconds
--- NOTE | 2021-01-13 16:08 | PCM.PN ---
- General Info Date of Service: 01/13/21 Admission Dx/Problem (Free Text): Admission Diagnosis/Problem Admission Diagnosis/Problem Weakness Subjective Update: Mr. Infante was obtunded today. He was given 2 mg of fentanyl in the OR today. He was unable to give a reliable review of systems due to his mental status. - Review of Systems Systems Review Comment:: Not able to obtain due to patient's mental status - Patient Data Vitals - Most Recent: Last Vital Signs Temp 97.2 F 01/13/21 15:43 Pulse 84 01/13/21 15:43 Resp 16 01/13/21 15:43 BP 153/72 H 01/13/21 15:43 Pulse Ox 95 01/13/21 15:29 Weight - Most Recent: 210 lb I&O - Last 24 Hours: Intake & Output 01/13/21 01/13/21 01/13/21 06:59 14:59 22:59 Intake Total 1904 0 Output Total 930 1550 Balance 974 -1550 Lab Results Last 24 Hours: Laboratory Results - last 24 hr 01/12/21 01/13/21 01/13/21 Range/Units 04:30 05:10 05:10 WBC 8.6 (4.5-11.0) K/uL RBC 3.60 L (4.30-5.90) M/uL Hgb 9.9 L (12.0-15.0) g/dL Hct 31.9 L (40.0-54.0) % MCV 89 (80-98) fL MCH 28 (27-31) pg MCHC 31 L (32-36) % Plt Count 194 (150-400) K/uL Neut % (Auto) 80.3 H (36-66) % Lymph % (Auto) 5.7 L (24-44) % [place] % (Auto) 10.7 H (2-6) % Eos % (Auto) 3.2 (2-4) % Baso % (Auto) 0.1 (0-1) % Sodium 141 (140-148) mmol/L Potassium 4.7 (3.6-5.2) mmol/L Chloride 107 (100-108) mmol/L Carbon Dioxide 27 (21-32) mmol/L Anion Gap 7.5 (5.0-14.0) mmol/L BUN 31 H (7-18) mg/dL Creatinine 0.7 L (0.8-1.3) mg/dL Est Cr Clr Drug Dosing 63.45 mL/min Estimated GFR (MDRD) > 60 (>60) Glucose 94 (74-106) mg/dL Calcium 9.3 (8.5-10.1) mg/dL Phosphorus 3.2 (2.5-4.9) mg/dL Magnesium 1.8 (1.8-2.4) mg/dL Total Bilirubin 0.5 D (0.2-1.0) mg/dL AST 43 H (15-37) U/L ALT 71 (12-78) U/L Alkaline Phosphatase 91 (46-116) U/L NT-Pro-B Natriuret Pep 2881 H (5-450) pg/mL Total Protein 4.9 L (6.4-8.2) g/dL Albumin 2.6 L (3.4-5.0) g/dL Globulin 2.3 (2.3-3.5) g/dL Albumin/Globulin Ratio 1.1 L (1.2-2.2) Blood Type A NEGATIVE Gel Antibody Screen Negative Crossmatch See Detail Med Orders - Current: Current Medications Acetaminophen (Acetaminophen 500 Mg Tab) 1,000 mg PO TID [facility] Last Admin: 01/13/21 14:44 Dose: Not Given Documented by: Haloperidol Lactate (Haloperidol Lactate 5 Mg/Ml Sdv) 2.5 mg IVPUSH Q4H PRN PRN Reason: Agitation Heparin Sodium (Porcine) (Heparin Sodium 100 Units/Ml 5 Ml Syringe) 300 units FLUSH ASDIRECTED PRN PRN Reason: IV Use Last Admin: 01/07/21 14:49 Dose: 300 units Documented by: Lactated Ringer's (Ringers, Lactated) 1,000 mls @ 25 mls/hr IV ASDIRECTED [facility] Last Admin: 01/07/21 14:52 Dose: 25 mls/hr Documented by: Doxycycline Hyclate 100 mg/ (Sodium Chloride) 100 mls @ 100 mls/hr IV Q12H [facility] [place] Last Admin: 01/13/21 10:16 Dose: 100 mls/hr Documented by: Multivitamins/Minerals 10 ml/Zinc 1 ml/ Amino Ac/Electrol/Dextrose/Calcium 1,011 mls @ 82 mls/hr IV .BY DURATION [facility] Stop: 01/13/21 19:00 Last Admin: 01/12/21 21:17 Dose: 82 mls/hr Documented by: Amino Ac/Electrol/Dextrose/Calcium (Clinimix E 5/15) 1,000 mls @ 82 mls/hr IV .BY DURATION [facility] Stop: 01/13/21 19:00 Last Admin: 01/13/21 09:56 Dose: 82 mls/hr Documented by: Albumin Human (Albumin 25%) 25 gm in 100 mls @ 25 mls/hr IV Q24H [facility] [place] Stop: 01/15/21 16:59 Last Admin: 01/13/21 13:20 Dose: 25 mls/hr Documented by: Multivitamins/Minerals 10 ml/Zinc 1 ml/ Amino Ac/Electrol/Dextrose/Calcium 1,011 mls @ 82 mls/hr IV .BY DURATION [facility] Amino Ac/Electrol/Dextrose/Calcium (Clinimix E 5/15) 1,000 mls @ 82 mls/hr IV .BY DURATION [facility] Lactobacillus Rhamnosus (Lactobacillus Rhamnosus Gg (Probiotic) Cap) 2 cap PO DAILY [facility] Last Admin: 01/13/21 08:48 Dose: Not Given Documented by: Melatonin (Melatonin 3 Mg Tab) 9 mg PO BEDTIME [facility] Last Admin: 01/12/21 21:16 Dose: 9 mg Documented by: Metoprolol Tartrate (Metoprolol Tartrate 25 Mg Tab) 25 mg PO BID [facility] Last Admin: 01/13/21 13:22 Dose: Not Given Documented by: Morphine Sulfate (Morphine 2 Mg/Ml Syringe) 2 mg IVPUSH Q2H PRN PRN Reason: Pain Last Admin: 01/06/21 15:03 Dose: 2 mg Documented by: Ondansetron HCl (Ondansetron 4 Mg/2 Ml Sdv) 4 mg IVPUSH Q4H PRN PRN Reason: Nausea Pantoprazole Sodium (Pantoprazole 40 Mg Tab.Cr) 40 mg PO ACBREAKFAST [facility] Last Admin: 01/13/21 08:48 Dose: Not Given Documented by: Potassium Chloride (Potassium Chloride 20 Meq Tab.Er) 40 meq PO DAILY [facility] [place] Last Admin: 01/13/21 13:22 Dose: Not Given Documented by: Propafenone HCl (Propafenone 150 Mg Tab) 225 mg PO TID [facility] [place] Last Admin: 01/13/21 15:39 Dose: 225 mg Documented by: Tramadol HCl (Tramadol 50 Mg Tab) 50 mg PO Q6H PRN PRN Reason: Pain Last Admin: 01/13/21 10:18 Dose: 50 mg Documented by: Discontinued Medications Acetaminophen (Acetaminophen 500 Mg Tab) 1,000 mg PO TID [facility] [place] Last Admin: 01/07/21 11:48 Dose: Not Given Documented by: Acetaminophen (Acetaminophen 325 Mg Tab) 650 mg PO ONETIME PRN PRN Reason: [place]ACHE,[place] Stop: 01/06/21 21:00 Acetaminophen (Acetaminophen 500 Mg Tab) 1,000 mg PO Q8H PRN PRN Reason: PAIN Last Admin: 01/08/21 04:30 Dose: 1,000 mg Documented by: Bupivacaine HCl (Bupivacaine 0.5% 50 Ml Mdv) Confirm Administered Dose 50 ml .ROUTE .STK-MED ONE Stop: 01/07/21 07:03 Bupivacaine HCl (Bupivacaine 0.5% 50 Ml Mdv) Confirm Administered Dose 50 ml .ROUTE .STK-MED ONE Stop: 01/09/21 06:40 Bupivacaine HCl/Epinephrine Bitart (Bupivacaine 0.5%/Epinephrine 1:200,000 50 Ml Mdv) Confirm Administered Dose 50 ml .ROUTE .STK-MED ONE Stop: 01/11/21 07:54 Dexamethasone (Dexamethasone 4 Mg/Ml Sdv) Confirm Administered Dose 4 mg .ROUTE .STK-MED ONE Stop: 01/07/21 06:54 Dexamethasone (Dexamethasone 4 Mg/Ml Sdv) Confirm Administered Dose 4 mg .ROUTE .STK-MED ONE Stop: 01/11/21 06:57 Diphenhydramine HCl (Diphenhydramine 50 Mg/Ml Sdv) 50 mg IVPUSH ONETIME PRN PRN Reason: ALLERGIC RXN Stop: 01/06/21 21:00 Epinephrine HCl (Epinephrine 1 Mg/Ml Sdv) 0.3 mg IM ONETIME PRN PRN Reason: ALLERGIC RXN Stop: 01/06/21 21:00 Famotidine (Famotidine 20 Mg/2 Ml Sdv) 20 mg IV ONETIME PRN PRN Reason: ALLERGIC RXN Stop: 01/06/21 21:00 Fentanyl (Fentanyl 100 Mcg/2 Ml Sdv) Confirm Administered Dose 100 mcg .ROUTE .STK-MED ONE Stop: 01/07/21 06:52 Fentanyl (Fentanyl 100 Mcg/2 Ml Sdv) Confirm Administered Dose 200 mcg .ROUTE .STK-MED ONE Stop: 01/09/21 06:46 Fentanyl (Fentanyl 100 Mcg/2 Ml Sdv) 100 mcg .ROUTE .STK-MED ONE Stop: 01/09/21 07:01 Fentanyl (Fentanyl 100 Mcg/2 Ml Sdv) Confirm Administered Dose 100 mcg .ROUTE .STK-MED ONE Stop: 01/10/21 06:30 Fentanyl (Fentanyl 100 Mcg/2 Ml Sdv) Confirm Administered Dose 100 mcg .ROUTE .STK-MED ONE Stop: 01/11/21 06:57 Fentanyl (Fentanyl 100 Mcg/2 Ml Sdv) Confirm Administered Dose 100 mcg .ROUTE .STK-MED ONE Stop: 01/11/21 07:12 Fentanyl (Fentanyl 100 Mcg/2 Ml Sdv) Confirm Administered Dose 100 mcg .ROUTE .STK-MED ONE Stop: 01/13/21 07:13 Furosemide (Furosemide 20 Mg/2 Ml Vial) 20 mg IVPUSH ONETIME ONE Stop: 01/07/21 14:01 Last Admin: 01/07/21 13:16 Dose: 20 mg Documented by: Furosemide (Furosemide 20 Mg/2 Ml Vial) 20 mg IVPUSH Q6H [facility] Stop: 01/08/21 15:01 Last Admin: 01/08/21 14:39 Dose: 20 mg Documented by: Furosemide (Furosemide 20 Mg/2 Ml Vial) 20 mg IVPUSH Q10H [facility] Stop: 01/09/21 20:01 Last Admin: 01/09/21 19:42 Dose: 20 mg Documented by: Furosemide (Furosemide 20 Mg/2 Ml Vial) 20 mg IV ONETIME ONE Stop: 01/12/21 14:01 Last Admin: 01/12/21 13:20 Dose: 20 mg Documented by: Furosemide (Furosemide 20 Mg/2 Ml Vial) 20 mg IVPUSH ONETIME ONE Stop: 01/13/21 09:16 Glycopyrrolate (Glycopyrrolate 0.2 Mg/Ml 5 Ml Mdv) Confirm Administered Dose 1 mg .ROUTE .STK-MED ONE Stop: 01/07/21 06:54 Glycopyrrolate (Glycopyrrolate 0.2 Mg/Ml 5 Ml Mdv) Confirm Administered Dose 1 mg .ROUTE .STK-MED ONE Stop: 01/11/21 06:57 Heparin Sodium (Porcine) (Heparin Sodium 100 Units/Ml 5 Ml Syringe) Confirm Administered Dose 500 units .ROUTE .STK-MED ONE Stop: 01/07/21 07:03 Lactated Ringer's (Ringers, Lactated) 1,000 mls @ 100 mls/hr IV ASDIRECTED [facility]O Lactated Ringer's (Ringers, Lactated) 1,000 mls @ 40 mls/hr IV ASDIRECTED [facility]O Potassium Phosphate 15 mmol/ (Premix) 250 mls @ 85 mls/hr IV Q3H [facility] Stop: 01/06/21 13:57 Last Admin: 01/06/21 11:20 Dose: 85 mls/hr Documented by: Magnesium Sulfate 2 gm/ Premix 50 mls @ 25 mls/hr IV Q6H [facility] Stop: 01/06/21 17:59 Last Admin: 01/06/21 09:15 Dose: 25 mls/hr Documented by: Magnesium Sulfate 2 gm/ Premix 50 mls @ 25 mls/hr IV Q6H [facility] Stop: 01/06/21 15:59 Last Admin: 01/06/21 14:23 Dose: 25 mls/hr Documented by: Albumin Human (Albumin 25%) 25 gm in 100 mls @ 25 mls/hr IV Q24H [facility] Stop: 01/09/21 19:59 Last Admin: 01/09/21 16:06 Dose: 25 mls/hr Documented by: Ceftriaxone Sodium 2 gm/ (Sodium Chloride) 50 mls @ 100 mls/hr IV Q24H [facility] [place] Stop: 01/07/21 16:00 Last Admin: 01/07/21 13:51 Dose: 100 mls/hr Documented by: Acetaminophen 1,000 mg/ Premix 100 mls @ 400 mls/hr IV Q8H PRN PRN Reason: Pain Stop: 01/07/21 19:14 Last Admin: 01/07/21 04:55 Dose: 400 mls/hr Documented by: Multivitamins/Minerals 10 ml/Zinc 1 ml/ Amino Ac/Electrol/Dextrose/Calcium 1,011 mls @ 82 mls/hr IV .BY DURATION [facility] Stop: 01/11/21 15:30 Last Admin: 01/10/21 17:54 Dose: 82 mls/hr Documented by: Amino Ac/Electrol/Dextrose/Calcium (Clinimix E 08/14) 1,000 mls @ 82 mls/hr IV .BY DURATION [facility] Stop: 01/11/21 15:30 Last Admin: 01/11/21 07:02 Dose: 82 mls/hr Documented by: Piperacillin/Tazobactam/ (Dextrose 3.375 gm/ Premix) 50 mls @ 100 mls/hr IV Q6H [facility] [place] Last Admin: 01/11/21 10:28 Dose: Not Given Documented by: Potassium Phosphate 22.5 mmole (/ Sodium Chloride) 107.5 mls @ 30 mls/hr IV Q4H [facility] [place] Stop: 01/08/21 17:34 Last Admin: 01/08/21 15:41 Dose: 30 mls/hr Documented by: Sodium Chloride (Normal Saline) Confirm Administered Dose 10 mls @ as directed .ROUTE .STK-MED ONE Stop: 01/09/21 06:49 Potassium Phosphate 30 mmole/ (Sodium Chloride) 110 mls @ 20 mls/hr IV ONETIME ONE Stop: 01/09/21 15:29 Last Admin: 01/09/21 11:16 Dose: 20 mls/hr Documented by: Magnesium Sulfate 2 gm/ Premix 50 mls @ 25 mls/hr IV Q6H [facility] [place] Stop: 01/11/21 05:59 Last Admin: 01/11/21 04:46 Dose: 25 mls/hr Documented by: Potassium Phosphate 30 mmole/ (Sodium Chloride) 110 mls @ 20 mls/hr IV ONETIME ONE Stop: 01/10/21 16:29 Last Admin: 01/10/21 11:28 Dose: 20 mls/hr Documented by: Lidocaine HCl (Lidocaine 2% Jelly 10 Ml Urojet) Confirm Administered Dose 10 ml .ROUTE .STK-MED ONE Stop: 01/05/21 18:51 Last Admin: 01/05/21 19:33 Dose: Not Given Documented by: Lidocaine/Epinephrine (Lidocaine 1% With Epinephrine 1:100,000 50 Ml Mdv) Confirm Administered Dose 50 ml .ROUTE .STK-MED ONE Stop: 01/07/21 07:03 Lidocaine/Epinephrine (Lidocaine 1% With Epinephrine 1:100,000 50 Ml Mdv) Confirm Administered Dose 50 ml .ROUTE .STK-MED ONE Stop: 01/09/21 06:40 Meropenem (Meropenem 500 Mg Sdv) Confirm Administered Dose 500 mg .ROUTE .STK- MED ONE Stop: 01/07/21 08:33 Meropenem (Meropenem 500 Mg Sdv) Confirm Administered Dose 500 mg .ROUTE .STK- MED ONE Stop: 01/09/21 06:40 Last Admin: 01/09/21 08:00 Dose: 500 mg Documented by: Meropenem (Meropenem 500 Mg Sdv) Confirm Administered Dose 500 mg .ROUTE .STK- MED ONE Stop: 01/10/21 06:19 Last Admin: 01/10/21 07:31 Dose: 500 mg Documented by: Meropenem (Meropenem 500 Mg Sdv) Confirm Administered Dose 500 mg .ROUTE .STK- MED ONE Stop: 01/11/21 06:34 Meropenem (Meropen[place] 500 Mg Sdv) Confirm Administered Dose 500 mg .ROUTE .STK- MED ONE Stop: 01/12/21 06:36 Meropenem (Meropenem 500 Mg Sdv) Confirm Administered Dose 500 mg .ROUTE .STK- MED ONE Stop: 01/13/21 06:45 Last Admin: 01/13/21 07:30 Dose: 500 mg Documented by: Methylprednisolone Sodium Succinate (Methylprednisolone Sodium Succinate 125 Mg/2 Ml Sdv) 125 mg IVPUSH ONETIME PRN PRN Reason: ALLERGIC RXN Stop: 01/06/21 21:00 Metoprolol Tartrate (Metoprolol Tartrate 5 Mg/5 Ml Sdv) 5 mg IVPUSH Q6H [facility] Last Admin: 01/08/21 11:23 Dose: Not Given Documented by: Neostigmine Methylsulfate (Neostigmine Methylsulfate 1 Mg/Ml 5 Ml Syringe) Confirm Administered Dose 5 mg .ROUTE .STK-MED ONE Stop: 01/07/21 06:54 Neostigmine Methylsulfate (Neostigmine Methylsulfate 1 Mg/Ml 5 Ml Syringe) Confirm Administered Dose 5 mg .ROUTE .STK-MED ONE Stop: 01/11/21 06:57 Non-Formulary Medication (Casirivimab 120 Mg/Ml Vial) 600 mg SUBCUT ONETIME ONE Stop: 01/06/21 13:01 Last Admin: 01/06/21 12:57 Dose: 600 mg Documented by: Non-Formulary Medication (Imdevimab 120 Mg/Ml Vial) 600 mg SUBCUT ONETIME ONE Stop: 01/06/21 13:01 Last Admin: 01/06/21 12:57 Dose: 600 mg Documented by: Non-Formulary Medication (Central Total Parenteral Nutrition Bag) 0 ml IV ONETIME ONE Stop: 01/12/21 11:31 Last Admin: 01/12/21 13:10 Dose: Not Given Documented by: Ondansetron HCl (Ondansetron 4 Mg/2 Ml Sdv) Confirm Administered Dose 4 mg .R OUTE .STK-MED ONE Stop: 01/07/21 06:54 Ondansetron HCl (Ondansetron 4 Mg/2 Ml Sdv) Confirm Administered Dose 4 mg .ROUTE .STK-MED ONE Stop: 01/11/21 06:57 Phenylephrine HCl (Phenylephrine 1% 10 Mg/Ml Sdv) Confirm Administered Dose 10 mg .ROUTE .STK-MED ONE Stop: 01/09/21 06:48 Piperacillin Sod/Tazobactam Sod (Piperacillin/Tazobactam 3.375 Gm Vial) Confirm Administered Dose 3.375 gm .ROUTE .STK-MED ONE Stop: 01/07/21 08:41 Propafenone HCl (Propafenone 150 Mg Tab) 225 mg PO BID [facility] Last Admin: 01/05/21 21:18 Dose: 225 mg Documented by: Propofol (Propofol 200 Mg/20 Ml Sdv) Confirm Administered Dose 200 mg .ROUTE .STK-MED ONE Stop: 01/07/21 06:54 Propofol (Propofol 200 Mg/20 Ml Sdv) Confirm Administered Dose 400 mg .ROUTE .STK-MED ONE Stop: 01/09/21 06:47 Propofol (Propofol 200 Mg/20 Ml Sdv) 200 mg .ROUTE .STK-MED ONE Stop: 01/09/21 07:01 Propofol (Propofol 200 Mg/20 Ml Sdv) Confirm Administered Dose 200 mg .ROUTE .STK-MED ONE Stop: 01/10/21 06:30 Propofol (Propofol 200 Mg/20 Ml Sdv) Confirm Administered Dose 600 mg .ROUTE .STK-MED ONE Stop: 01/11/21 06:57 Propofol (Propofol 200 Mg/20 Ml Sdv) Confirm Administered Dose 400 mg .ROUTE .STK-MED ONE Stop: 01/13/21 07:06 Rocuronium [place] (Rocuronium 50 Mg/5 Ml Vial) Confirm Administered Dose 50 mg .ROUTE .STK-MED ONE Stop: 01/07/21 06:54 Rocuronium [place] (Rocuronium 50 Mg/5 Ml Vial) Confirm Administered Dose 50 mg .ROUTE .STK-MED ONE Stop: 01/11/21 06:57 Rocuronium [place] (Rocuronium 50 Mg/5 Ml Vial) 50 mg IV .STK-MED ONE Stop: 01/10/21 07:01 Succinylcholine Chloride (Succinylcholine 200 Mg/10 Ml Mdv) Confirm Administered Dose 200 mg .ROUTE .STK-MED ONE Stop: 01/11/21 06:57 - Exam Central Line Total Time: 6Days 0Hours Urinary Catheter Total Time: 2Days 1Hours General: No: Alert, Oriented HEENT: Pupils Equal, EOMI, Mucous Membr. Moist/[place]ora Neck: Supple, Trachea Midline Lungs: Clear to Auscultation, Normal Respiratory Effort, Other (Some noises coming from the throat likely due to secretions) GI/Abdominal Exam: Normal Bowel Sounds, Soft, Non-Tender, No Organomegaly, No Distention, No Abnormal Bruit, Other (Suprapubic catheter in place) Extremities: Normal Inspection, Non-Tender, No Pedal Edema Skin: Warm, Dry, Intact Neurological: No New Focal Deficit Psy/Mental Status: No: Alert, Normal Affect, Normal Mood - Patient Data Lab Results Last 24 hrs: Laboratory Results - last 24 hr 01/12/21 01/13/21 01/13/21 Range/Units 04:30 05:10 05:10 WBC 8.6 (4.5-11.0) K/uL RBC 3.60 L (4.30-5.90) M/uL Hgb 9.9 L (12.0-15.0) g/dL Hct 31.9 L (40.0-54.0) % MCV 89 (80-98) fL MCH 28 (27-31) pg MCHC 31 L (32-36) % Plt Count 194 (150-400) K/uL Neut % (Auto) 80.3 H (36-66) % Lymph % (Auto) 5.7 L (24-44) % [place] % (Auto) 10.7 H (2-6) % Eos % (Auto) 3.2 (2-4) % Baso % (Auto) 0.1 (0-1) % Sodium 141 (140-148) mmol/L Potassium 4.7 (3.6-5.2) mmol/L Chloride 107 (100-108) mmol/L Carbon Dioxide 27 (21-32) mmol/L Anion Gap 7.5 (5.0-14.0) mmol/L BUN 31 H (7-18) mg/dL Creatinine 0.7 L (0.8-1.3) mg/dL Est Cr Clr Drug Dosing 63.45 mL/min Estimated GFR (MDRD) > 60 (>60) Glucose 94 (74-106) mg/dL Calcium 9.3 (8.5-10.1) mg/dL Phosphorus 3.2 (2.5-4.9) mg/dL Magnesium 1.8 (1.8-2.4) mg/dL Total Bilirubin 0.5 D (0.2-1.0) mg/dL AST 43 H (15-37) U/L ALT 71 (12-78) U/L Alkaline Phosphatase 91 (46-116) U/L NT-Pro-B Natriuret Pep 2881 H (5-450) pg/mL Total Protein 4.9 L (6.4-8.2) g/dL Albumin 2.6 L (3.4-5.0) g/dL Globulin 2.3 (2.3-3.5) g/dL Albumin/Globulin Ratio 1.1 L (1.2-2.2) Blood Type A NEGATIVE Gel Antibody Screen Negative Crossmatch See Detail Result Diagrams: 01/13/21 05:10 01/13/21 05:10 Sepsis Event Note - Evaluation Sepsis Screening Result: No Definite Risk - Focused Exam Vital Signs: Vital Signs Temp Temp Pulse Pulse Resp BP Pulse Ox 01/13/21 15:43 97.2 F 84 16 153/72 H 01/13/21 15:39 92 01/13/21 15:29 97.3 F 90 16 154/56 H 95 01/13/21 15:05 97.3 F 91 16 153/73 H 95 01/13/21 14:50 97.2 F 01/13/21 14:48 85 16 152/73 H 95 01/13/21 14:37 97.3 F 92 16 148/74 H 97 01/13/21 12:06 98.8 F 01/13/21 09:45 88 16 146/72 H 97 01/13/21 09:15 74 155/89 H 01/13/21 08:48 84 16 149/67 H 95 01/13/21 08:41 80 16 147/72 H 96 01/13/21 08:27 97.2 F 56 L 16 156/62 H 96 01/13/21 08:05 97.7 F 81 14 144/68 H 100 01/13/21 08:00 85 14 139/67 100 01/13/21 07:55 81 14 122/60 100 01/13/21 07:50 79 14 113/74 100 01/13/21 07:45 97.5 F 82 14 101/62 100 01/13/21 05:18 97.9 F 73 20 141/49 H 97 - Problem List & Annotations (1) Status post exploratory laparotomy SNOMED Code(s): 436639162, 24873574, 893263569 Code(s): Z98.890 - OTHER SPECIFIED POSTPROCEDURAL STATES Status: Acute Current Visit: Yes Annotation/Comment:: Drainage ofrectal/pelvic abscess (2) History of atrial fibrillation SNOMED Code(s): 509576897 Code(s): Z86.79 - PERSONAL HISTORY OF OTHER DISEASES OF THE CIRCULATORY SYSTEM Status: Chronic Current Visit: No (3) Essential hypertension SNOMED Code(s): 99301332 Code(s): I10 - ESSENTIAL (PRIMARY) HYPERTENSION Status: Chronic Current Visit: No - Problem List Review Problem List Initiated/Reviewed/Updated: Yes - Plan Plan:: ASSESSMENT AND RECOMMENDATIONS- Covid positive-no symptoms. -Not hypoxic and not febrile. 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 Triple-lumen catheter placed. Culture from the necrotic tissue was growing coag negative staph and strep viridans. Doing well since the most recent surgery. Getting dressing changes in the OR daily. -Empiric antibiotic coverage with Pip/Tazo and doxycycline initially and has been decreased to doxycycline to cover strep viridans which is susceptible -Management per surgical team Chronic atrial fibrillation-heart rate has been well controlled after transition to oral medications yesterday. -Continue metoprolol 25 mg twice a day -Propafenone 3 times a day -Discontinue cardiac monitoring Normocytic anemia-stable -probably related to recent surgery. -Some increased blood loss with the bladder injury -I would encourage a transfusion threshold of less than 8 unless hemodynamically unstable -Did receive blood today Probable urinary tract infection-urinalysis suggestive of infection with packed RBCs and white blood cells. This could explain some of the weakness and lethargy. Culture grew out strep viridans. -Should be covered by antibiotics as above VTE prophylaxis: Not indicated GI prophylaxis: Not indicated Diet: Soft diet Plan: He has 2 more days of antibiotics than they can be stopped. Hien Fofana,
[2021-01-13] MEDS: Melatonin 3 MG Tab PO SCH (21:40)
[2021-01-14] MEDS ORDERED: Propofol 200 MG/20 ML SDV ONE (07:04)
[2021-01-14] MEDS ORDERED: fentaNYL 100 MCG/2 ML SDV ONE (07:05)
[2021-01-14] MEDS ORDERED: Meropenem 500 MG SDV ONE (07:12)
[2021-01-14] MEDS: Pantoprazole 40 MG Tab.CR PO SCH (09:14)
[2021-01-14] MEDS: traMADol 50 MG Tab PO PRN ×3 (09:27→22:06)
[2021-01-14] MEDS: Doxycycline 100 MG in Sodium Chloride 0.9% 100 ML IV SCH ×2 (09:27→22:06)
[2021-01-14] MEDS: Metoprolol Tartrate 25 MG Tab PO SCH ×3 (09:29→20:36)
[2021-01-14] MEDS ORDERED: Furosemide 20 MG/2 ML VIAL IVPUSH ONE (09:30)
[2021-01-14] MEDS: Lactobacillus Rhamnosus GG (Probiotic) Cap PO SCH ×2 (09:30→11:49)
[2021-01-14] MEDS: Potassium Chloride 20 MEQ Tab.ER PO SCH ×2 (09:31→11:49)
[2021-01-14] MEDS: Acetaminophen 500 MG Tab PO SCH ×3 (09:32→20:35)
[2021-01-14] MEDS: 1: AA 5%/Calcium/D15W/Lytes 1,000 ML with MVI, Adult with Vitamin K 10 ML, Zinc/Copper/M IV SCH ×3 (11:29)
--- NOTE | 2021-01-14 19:11 | PCM.PN ---
- General Info Date of Service: 01/14/21 Admission Dx/Problem (Free Text): Admission Diagnosis/Problem Admission Diagnosis/Problem Weakness Subjective Update: Mr. Infante was more awake today. He appeared to be in some pain in his buttocks. His catheter was in place and draining yellow urine. He did not have any complaints other than the discomfort, however he was not really answering many of my questions. He did say that he had an itchy back. - Review of Systems Musculoskeletal: Reports: Other (Buttock pain) Skin: Reports: Pruritis Systems Review Comment:: Difficult to obtain due to patient's mental status - Patient Data Vitals - Most Recent: Last Vital Signs Temp 97.7 F 01/14/21 14:25 Pulse 99 01/14/21 14:25 Resp 20 01/14/21 14:25 BP 110/50 L 01/14/21 14:25 Pulse Ox 96 01/14/21 14:25 Weight - Most Recent: 210 lb I&O - Last 24 Hours: Intake & Output 01/14/21 01/14/21 01/14/21 06:59 14:59 22:59 Intake Total 7041 826 2183 Output Total 1000 2350 350 Balance 16 -2150 775 Lab Results Last 24 Hours: Laboratory Results - last 24 hr 01/14/21 01/14/21 01/14/21 Range/Units 05:42 05:42 05:42 WBC 7.8 (4.5-11.0) K/uL RBC 3.74 L (4.30-5.90) M/uL Hgb 10.2 L (12.0-15.0) g/dL Hct 32.8 L (40.0-54.0) % MCV 88 (80-98) fL MCH 27 (27-31) pg MCHC 31 L (32-36) % Plt Count 158 (150-400) K/uL Sodium 141 (140-148) mmol/L Potassium 4.3 (3.6-5.2) mmol/L Chloride 105 (100-108) mmol/L Carbon Dioxide 27 (21-32) mmol/L Anion Gap 9.0 (5.0-14.0) mmol/L BUN 30 H (7-18) mg/dL Creatinine 0.7 L (0.8-1.3) mg/dL Est Cr Clr Drug Dosing 63.45 mL/min Estimated GFR (MDRD) > 60 (>60) Glucose 109 H (74-106) mg/dL Calcium 9.2 (8.5-10.1) mg/dL Phosphorus 3.3 (2.5-4.9) mg/dL Magnesium 1.5 L (1.8-2.4) mg/dL Total Bilirubin 0.7 (0.2-1.0) mg/dL AST 40 H (15-37) U/L ALT 68 (12-78) U/L Alkaline Phosphatase 110 (46-116) U/L NT-Pro-B Natriuret Pep 3234 H (5-450) pg/mL Total Protein 4.7 L (6.4-8.2) g/dL Albumin 2.6 L (3.4-5.0) g/dL Globulin 2.1 L (2.3-3.5) g/dL Albumin/Globulin Ratio 1.2 (1.2-2.2) Med Orders - Current: Current Medications Acetaminophen (Acetaminophen 500 Mg Tab) 1,000 mg PO TID [facility] Last Admin: 01/14/21 14:24 Dose: Not Given Documented by: Haloperidol Lactate (Haloperidol Lactate 5 Mg/Ml Sdv) 2.5 mg IVPUSH Q4H PRN PRN Reason: Agitation Heparin Sodium (Porcine) (Heparin Sodium 100 Units/Ml 5 Ml Syringe) 300 units FLUSH ASDIRECTED PRN PRN Reason: IV Use Last Admin: 01/13/21 22:47 Dose: 300 units Documented by: Lactated Ringer's (Ringers, Lactated) 1,000 mls @ 25 mls/hr IV ASDIRECTED [facility] Last Admin: 01/07/21 14:52 Dose: 25 mls/hr Documented by: Doxycycline Hyclate 100 mg/ (Sodium Chloride) 100 mls @ 100 mls/hr IV Q12H [facility] Last Admin: 01/14/21 09:27 Dose: 100 mls/hr Documented by: Albumin Human (Albumin 25%) 25 gm in 100 mls @ 25 mls/hr IV Q24H [facility] Stop: 01/15/21 16:59 Last Admin: 01/14/21 14:11 Dose: 25 mls/hr Documented by: Multivitamins/Minerals 10 ml/Zinc 1 ml/ Amino Ac/Electrol/Dextrose/Calcium 1,011 mls @ 82 mls/hr IV .BY DURATION [facility] Last Admin: 01/13/21 22:49 Dose: 82 mls/hr Documented by: Amino Ac/Electrol/Dextrose/Calcium (Clinimix E 08/14) 1,000 mls @ 82 mls/hr IV .BY DURATION [facility] Last Admin: 01/14/21 11:29 Dose: 82 mls/hr Documented by: Lactobacillus Rhamnosus (Lactobacillus Rhamnosus Gg (Probiotic) Cap) 2 cap PO DAILY [facility] Last Admin: 01/14/21 11:49 Dose: Not Given Documented by: Melatonin (Melatonin 3 Mg Tab) 9 mg PO BEDTIME [facility] Last Admin: 01/13/21 21:40 Dose: 9 mg Documented by: Metoprolol Tartrate (Metoprolol Tartrate 25 Mg Tab) 25 mg PO BID [facility] Last Admin: 01/14/21 11:47 Dose: Not Given Documented by: Morphine Sulfate (Morphine 2 Mg/Ml Syringe) 2 mg IVPUSH Q2H PRN PRN Reason: Pain Last Admin: 01/06/21 15:03 Dose: 2 mg Documented by: Ondansetron HCl (Ondansetron 4 Mg/2 Ml Sdv) 4 mg IVPUSH Q4H PRN PRN Reason: Nausea Pantoprazole Sodium (Pantoprazole 40 Mg Tab.Cr) 40 mg PO ACBREAKFAST [facility] Last Admin: 01/14/21 09:14 Dose: Not Given Documented by: Potassium Chloride (Potassium Chloride 20 Meq Tab.Er) 40 meq PO DAILY [facility] Last Admin: 01/14/21 11:49 Dose: Not Given Documented by: Propafenone HCl (Propafenone 150 Mg Tab) 225 mg PO TID [facility] Last Admin: 01/14/21 14:22 Dose: 225 mg Documented by: Tramadol HCl (Tramadol 50 Mg Tab) 50 mg PO Q6H PRN PRN Reason: Pain Last Admin: 01/14/21 12:17 Dose: 50 mg Documented by: Discontinued Medications Acetaminophen (Acetaminophen 500 Mg Tab) 1,000 mg PO TID [facility] Last Admin: 01/07/21 11:48 Dose: Not Given Documented by: Acetaminophen (Acetaminophen 325 Mg Tab) 650 mg PO ONETIME PRN PRN Reason: HEADACHE,CHILLS Stop: 01/06/21 21:00 Acetaminophen (Acetaminophen 500 Mg Tab) 1,000 mg PO Q8H PRN PRN Reason: PAIN Last Admin: 01/08/21 04:30 Dose: 1,000 mg Documented by: Bupivacaine HCl (Bupivacaine 0.5% 50 Ml Mdv) Confirm Administered Dose 50 ml .ROUTE .STK-MED ONE Stop: 01/07/21 07:03 Bupivacaine HCl (Bupivacaine 0.5% 50 Ml Mdv) Confirm Administered Dose 50 ml .ROUTE .STK-MED ONE Stop: 01/09/21 06:40 Bupivacaine HCl/Epinephrine Bitart (Bupivacaine 0.5%/Epinephrine 1:200,000 50 Ml Mdv) Confirm Administered Dose 50 ml .ROUTE .STK-MED ONE Stop: 01/11/21 07:54 Dexamethasone (Dexamethasone 4 Mg/Ml Sdv) Confirm Administered Dose 4 mg .ROUTE .STK-MED ONE Stop: 01/07/21 06:54 Dexamethasone (Dexamethasone 4 Mg/Ml Sdv) Confirm Administered Dose 4 mg .ROUTE .STK-MED ONE Stop: 01/11/21 06:57 Diphenhydramine HCl (Diphenhydramine 50 Mg/Ml Sdv) 50 mg IVPUSH ONETIME PRN PRN Reason: ALLERGIC RXN Stop: 01/06/21 21:00 Epinephrine HCl (Epinephrine 1 Mg/Ml Sdv) 0.3 mg IM ONETIME PRN PRN Reason: ALLERGIC RXN Stop: 01/06/21 21:00 Famotidine (Famotidine 20 Mg/2 Ml Sdv) 20 mg IV ONETIME PRN PRN Reason: ALLERGIC RXN Stop: 01/06/21 21:00 Fentanyl (Fentanyl 100 Mcg/2 Ml Sdv) Confirm Administered Dose 100 mcg .ROUTE .STK-MED ONE Stop: 01/07/21 06:52 Fentanyl (Fentanyl 100 Mcg/2 Ml Sdv) Confirm Administered Dose 200 mcg .ROUTE .STK-MED ONE Stop: 01/09/21 06:46 Fentanyl (Fentanyl 100 Mcg/2 Ml Sdv) 100 mcg .ROUTE .STK-MED ONE Stop: 01/09/21 07:01 Fentanyl (Fentanyl 100 Mcg/2 Ml Sdv) Confirm Administered Dose 100 mcg .ROUTE .STK-MED ONE Stop: 01/10/21 06:30 Fentanyl (Fentanyl 100 Mcg/2 Ml Sdv) Confirm Administered Dose 100 mcg .ROUTE .STK-MED ONE Stop: 01/11/21 06:57 Fentanyl (Fentanyl 100 Mcg/2 Ml Sdv) Confirm Administered Dose 100 mcg .ROUTE .STK-MED ONE Stop: 01/11/21 07:12 Fentanyl (Fentanyl 100 Mcg/2 Ml Sdv) Confirm Administered Dose 100 mcg .ROUTE .STK-MED ONE Stop: 01/13/21 07:13 Fentanyl (Fentanyl 100 Mcg/2 Ml Sdv) Confirm Administered Dose 100 mcg .ROUTE .STK-MED ONE Stop: 01/14/21 07:06 Furosemide (Furosemide 20 Mg/2 Ml Vial) 20 mg IVPUSH ONETIME ONE Stop: 01/07/21 14:01 Last Admin: 01/07/21 13:16 Dose: 20 mg Documented by: Furosemide (Furosemide 20 Mg/2 Ml Vial) 20 mg IVPUSH Q6H [facility] Stop: 01/08/21 15:01 Last Admin: 01/08/21 14:39 Dose: 20 mg Documented by: Furosemide (Furosemide 20 Mg/2 Ml Vial) 20 mg IVPUSH Q10H [facility] Stop: 01/09/21 20:01 Last Admin: 01/09/21 19:42 Dose: 20 mg Documented by: Furosemide (Furosemide 20 Mg/2 Ml Vial) 20 mg IV ONETIME ONE Stop: 01/12/21 14:01 Last Admin: 01/12/21 13:20 Dose: 20 mg Documented by: Furosemide (Furosemide 20 Mg/2 Ml Vial) 20 mg IVPUSH ONETIME ONE Stop: 01/13/21 09:16 Last Admin: 01/13/21 16:40 Dose: 20 mg Documented by: Furosemide (Furosemide 20 Mg/2 Ml Vial) 20 mg IVPUSH ONETIME ONE Stop: 01/14/21 09:31 Last Admin: 01/14/21 09:28 Dose: 20 mg Documented by: Glycopyrrolate (Glycopyrrolate 0.2 Mg/Ml 5 Ml Mdv) Confirm Administered Dose 1 mg .ROUTE .STK-MED ONE Stop: 01/07/21 06:54 Glycopyrrolate (Glycopyrrolate 0.2 Mg/Ml 5 Ml Mdv) Confirm Administered Dose 1 mg .ROUTE .STK-MED ONE Stop: 01/11/21 06:57 Heparin Sodium (Porcine) (Heparin Sodium 100 Units/Ml 5 Ml Syringe) Confirm Administered Dose 500 units .ROUTE .STK-MED ONE Stop: 01/07/21 07:03 Lactated Ringer's (Ringers, Lactated) 1,000 mls @ 100 mls/hr IV ASDIRECTED [facility] Lactated Ringer's (Ringers, Lactated) 1,000 mls @ 40 mls/hr IV ASDIRECTED [facility] Potassium Phosphate 15 mmol/ (Premix) 250 mls @ 85 mls/hr IV Q3H [facility] Stop: 01/06/21 13:57 Last Admin: 01/06/21 11:20 Dose: 85 mls/hr Documented by: Magnesium Sulfate 2 gm/ Premix 50 mls @ 25 mls/hr IV Q6H [facility] Stop: 01/06/21 17:59 Last Admin: 01/06/21 09:15 Dose: 25 mls/hr Documented by: Magnesium Sulfate 2 gm/ Premix 50 mls @ 25 mls/hr IV Q6H [facility] Stop: 01/06/21 15:59 Last Admin: 01/06/21 14:23 Dose: 25 mls/hr Documented by: Albumin Human (Albumin 25%) 25 gm in 100 mls @ 25 mls/hr IV Q24H [facility] Stop: 01/09/21 19:59 Last Admin: 01/09/21 16:06 Dose: 25 mls/hr Documented by: Ceftriaxone Sodium 2 gm/ (Sodium Chloride) 50 mls @ 100 mls/hr IV Q24H [facility] Stop: 01/07/21 16:00 Last Admin: 01/07/21 13:51 Dose: 100 mls/hr Documented by: Acetaminophen 1,000 mg/ Premix 100 mls @ 400 mls/hr IV Q8H PRN PRN Reason: Pain Stop: 01/07/21 19:14 Last Admin: 01/07/21 04:55 Dose: 400 mls/hr Documented by: Multivitamins/Minerals 10 ml/Zinc 1 ml/ Amino Ac/Electrol/Dextrose/Calcium 1,011 mls @ 82 mls/hr IV .BY DURATION [facility] Stop: 01/11/21 15:30 Last Admin: 01/10/21 17:54 Dose: 82 mls/hr Documented by: Amino Ac/Electrol/Dextrose/Calcium (Clinimix E /15) 1,000 mls @ 82 mls/hr IV .BY DURATION [facility] Stop: 01/11/21 15:30 Last Admin: 01/11/21 07:02 Dose: 82 mls/hr Documented by: Piperacillin/Tazobactam/ (Dextrose 3.375 gm/ Premix) 50 mls @ 100 mls/hr IV Q6H [facility] Last Admin: 01/11/21 10:28 Dose: Not Given Documented by: Potassium Phosphate 22.5 mmole (/ Sodium Chloride) 107.5 mls @ 30 mls/hr IV Q4H [facility] Stop: 01/08/21 17:34 Last Admin: 01/08/21 15:41 Dose: 30 mls/hr Documented by: Sodium Chloride (Normal Saline) Confirm Administered Dose 10 mls @ as directed .ROUTE .STK-MED ONE Stop: 01/09/21 06:49 Potassium Phosphate 30 mmole/ (Sodium Chloride) 110 mls @ 20 mls/hr IV ONETIME ONE Stop: 01/09/21 15:29 Last Admin: 01/09/21 11:16 Dose: 20 mls/hr Documented by: Magnesium Sulfate 2 gm/ Premix 50 mls @ 25 mls/hr IV Q6H [facility] Stop: 01/11/21 05:59 Last Admin: 01/11/21 04:46 Dose: 25 mls/hr Documented by: Potassium Phosphate 30 mmole/ (Sodium Chloride) 110 mls @ 20 mls/hr IV ONETIME ONE Stop: 01/10/21 16:29 Last Admin: 01/10/21 11:28 Dose: 20 mls/hr Documented by: Multivitamins/Minerals 10 ml/Zinc 1 ml/ Amino Ac/Electrol/Dextrose/Calcium 1,011 mls @ 82 mls/hr IV .BY DURATION [facility] Stop: 01/13/21 19:00 Last Admin: 01/12/21 21:17 Dose: 82 mls/hr Documented by: Amino Ac/Electrol/Dextrose/Calcium (Clinimix E 5/15) 1,000 mls @ 82 mls/hr IV .BY DURATION [facility] Stop: 01/13/21 19:00 Last Admin: 01/13/21 09:56 Dose: 82 mls/hr Documented by: Lidocaine HCl (Lidocaine 2% Jelly 10 Ml Urojet) Confirm Administered Dose 10 ml .ROUTE .STK-MED ONE Stop: 01/05/21 18:51 Last Admin: 01/05/21 19:33 Dose: Not Given Documented by: Lidocaine/Epinephrine (Lidocaine 1% With Epinephrine 1:100,000 50 Ml Mdv) Confirm Administered Dose 50 ml .ROUTE .STK-MED ONE Stop: 01/07/21 07:03 Lidocaine/Epinephrine (Lidocaine 1% With Epinephrine 1:100,000 50 Ml Mdv) Confirm Administered Dose 50 ml .ROUTE .STK-MED ONE Stop: 01/09/21 06:40 Meropenem (Meropenem 500 Mg Sdv) Confirm Administered Dose 500 mg .ROUTE .STK- MED ONE Stop: 01/07/21 08:33 Meropenem ([place] 500 Mg Sdv) Confirm Administered Dose 500 mg .ROUTE .STK- MED ONE Stop: 01/09/21 06:40 Last Admin: 01/09/21 08:00 Dose: 500 mg Documented by: Meropenem ([place] 500 Mg Sdv) Confirm Administered Dose 500 mg .ROUTE .STK- MED ONE Stop: 01/10/21 06:19 Last Admin: 01/10/21 07:31 Dose: 500 mg Documented by: Meropenem ([place] 500 Mg Sdv) Confirm Administered Dose 500 mg .ROUTE .STK- MED ONE Stop: 01/11/21 06:34 Meropenem ([place] 500 Mg Sdv) Confirm Administered Dose 500 mg .ROUTE .STK- MED ONE Stop: 01/12/21 06:36 Meropenem ([place] 500 Mg Sdv) Confirm Administered Dose 500 mg .ROUTE .STK- MED ONE Stop: 01/13/21 06:45 Last Admin: 01/13/21 07:30 Dose: 500 mg Documented by: Meropenem ([place] 500 Mg Sdv) Confirm Administered Dose 500 mg .ROUTE .STK- MED ONE Stop: 01/14/21 07:13 Methylprednisolone Sodium Succinate (Methylprednisolone Sodium Succinate 125 Mg/2 Ml Sdv) 125 mg IVPUSH ONETIME PRN PRN Reason: ALLERGIC RXN Stop: 01/06/21 21:00 Metoprolol Tartrate (Metoprolol Tartrate 5 Mg/5 Ml Sdv) 5 mg IVPUSH Q6H [facility] Last Admin: 01/08/21 11:23 Dose: Not Given Documented by: Neostigmine Methylsulfate (Neostigmine Methylsulfate 1 Mg/Ml 5 Ml Syringe) Confirm Administered Dose 5 mg .ROUTE .STK-MED ONE Stop: 01/07/21 06:54 Neostigmine Methylsulfate (Neostigmine Methylsulfate 1 Mg/Ml 5 Ml Syringe) Confirm Administered Dose 5 mg .ROUTE .STK-MED ONE Stop: 01/11/21 06:57 Non-Formulary Medication (Casirivimab 120 Mg/Ml Vial) 600 mg SUBCUT ONETIME ONE Stop: 01/06/21 13:01 Last Admin: 01/06/21 12:57 Dose: 600 mg Documented by: Non-Formulary Medication (Imdevimab 120 Mg/Ml Vial) 600 mg SUBCUT ONETIME ONE Stop: 01/06/21 13:01 Last Admin: 01/06/21 12:57 Dose: 600 mg Documented by: Non-Formulary Medication (Central Total Parenteral Nutrition Bag) 0 ml IV ONETIME ONE Stop: 01/12/21 11:31 Last Admin: 01/12/21 13:10 Dose: Not Given Documented by: Ondansetron HCl (Ondansetron 4 Mg/2 Ml Sdv) Confirm Administered Dose 4 mg .ROUTE .STK-MED ONE Stop: 01/07/21 06:54 Ondansetron HCl (Ondansetron 4 Mg/2 Ml Sdv) Confirm Administered Dose 4 mg .ROUTE .STK-MED ONE Stop: 01/11/21 06:57 Phenylephrine HCl (Phenylephrine 1% 10 Mg/Ml Sdv) Confirm Administered Dose 10 mg .ROUTE .STK-MED ONE Stop: 01/09/21 06:48 Piperacillin Sod/Tazobactam Sod (Piperacillin/Tazobactam 3.375 Gm Vial) Confirm Administered Dose 3.375 gm .ROUTE .STK-MED ONE Stop: 01/07/21 08:41 Propafenone HCl (Propafenone 150 Mg Tab) 225 mg PO BID [facility] Last Admin: 01/05/21 21:18 Dose: 225 mg Documented by: Propofol (Propofol 200 Mg/20 Ml Sdv) Confirm Administered Dose 200 mg .ROUTE .STK-MED ONE Stop: 01/07/21 06:54 Propofol (Propofol 200 Mg/20 Ml Sdv) Confirm Administered Dose 400 mg .ROUTE .STK-MED ONE Stop: 01/09/21 06:47 Propofol (Propofol 200 Mg/20 Ml Sdv) 200 mg .ROUTE .STK-MED ONE Stop: 01/09/21 07:01 Propofol (Propofol 200 Mg/20 Ml Sdv) Confirm Administered Dose 200 mg .ROUTE .STK-MED ONE Stop: 01/10/21 06:30 Propofol (Propofol 200 Mg/20 Ml Sdv) Confirm Administered Dose 600 mg .ROUTE .STK-MED ONE Stop: 01/11/21 06:57 Propofol (Propofol 200 Mg/20 Ml Sdv) Confirm Administered Dose 400 mg .ROUTE .STK-MED ONE Stop: 01/13/21 07:06 Propofol (Propofol 200 Mg/20 Ml Sdv) Confirm Administered Dose 200 mg .ROUTE .STK-MED ONE Stop: 01/14/21 07:05 Rocuronium [place] (Rocuronium 50 Mg/5 Ml Vial) Confirm Administered Dose 50 mg .ROUTE .STK-MED ONE Stop: 01/07/21 06:54 Rocuronium [place] (Rocuronium 50 Mg/5 Ml Vial) Confirm Administered Dose 50 mg .ROUTE .STK-MED ONE Stop: 01/11/21 06:57 Rocuronium [place] (Rocuronium 50 Mg/5 Ml Vial) 50 mg IV .STK-MED ONE Stop: 01/10/21 07:01 Succinylcholine Chloride (Succinylcholine 200 Mg/10 Ml Mdv) Confirm Administered Dose 200 mg .ROUTE .STK-MED ONE Stop: 01/11/21 06:57 - Exam Central Line Total Time: 7Days 3Hours Urinary Catheter Total Time: 3Days 2Hours General: Alert, No Acute Distress, Mild Distress HEENT: Pupils Equal, EOMI Neck: Supple, Trachea Midline Lungs: Clear to Auscultation, Normal Respiratory Effort Cardiovascular: Regular Rate, Regular Rhythm GI/Abdominal Exam: Normal Bowel Sounds, Soft, Non-Tender, No Organomegaly, No Distention, No Abnormal Bruit, Other (Suprapubic catheter in place) Extremities: Normal Inspection, Non-Tender, No Pedal Edema Skin: Warm, Dry, Intact Neurological: No New Focal Deficit Psy/Mental Status: Alert, Normal Affect, Normal Mood - Patient Data Lab Results Last 24 hrs: Laboratory Results - last 24 hr 01/14/21 01/14/21 01/14/21 Range/Units 05:42 05:42 05:42 WBC 7.8 (4.5-11.0) K/uL RBC 3.74 L (4.30-5.90) M/uL Hgb 10.2 L (12.0-15.0) g/dL Hct 32.8 L (40.0-54.0) % MCV 88 (80-98) fL MCH 27 (27-31) pg MCHC 31 L (32-36) % Plt Count 158 (150-400) K/uL Sodium 141 (140-148) mmol/L Potassium 4.3 (3.6-5.2) mmol/L Chloride 105 (100-108) mmol/L Carbon Dioxide 27 (21-32) mmol/L Anion Gap 9.0 (5.0-14.0) mmol/L BUN 30 H (7-18) mg/dL Creatinine 0.7 L (0.8-1.3) mg/dL Est Cr Clr Drug Dosing 63.45 mL/min Estimated GFR (MDRD) > 60 (>60) Glucose 109 H (74-106) mg/dL Calcium 9.2 (8.5-10.1) mg/dL Phosphorus 3.3 (2.5-4.9) mg/dL Magnesium 1.5 L (1.8-2.4) mg/dL Total Bilirubin 0.7 (0.2-1.0) mg/dL AST 40 H (15-37) U/L ALT 68 (12-78) U/L Alkaline Phosphatase 110 (46-116) U/L NT-Pro-B Natriuret Pep 3234 H (5-450) pg/mL Total Protein 4.7 L (6.4-8.2) g/dL Albumin 2.6 L (3.4-5.0) g/dL Globulin 2.1 L (2.3-3.5) g/dL Albumin/Globulin Ratio 1.2 (1.2-2.2) Result Diagrams: 01/14/21 05:42 01/14/21 05:42 Sepsis Event Note - Evaluation Sepsis Screening Result: No Definite Risk - Focused Exam Vital Signs: Vital Signs Temp Pulse Pulse Resp BP BP Pulse Ox 01/14/21 14:25 97.7 F 99 20 110/50 L 96 01/14/21 14:22 105 H 01/14/21 11:17 97.9 F 74 20 136/69 97 01/14/21 09:45 97.3 F 78 20 153/57 H 97 01/14/21 09:15 70 20 138/65 97 01/14/21 09:00 60 20 145/62 H 95 01/14/21 08:45 77 20 157/49 H 157/49 H 97 01/14/21 08:30 97.5 F 81 20 165/56 H 97 01/14/21 08:15 97.5 F 84 20 144/66 H 100 01/14/21 08:05 99.0 F 82 18 123/65 97 01/14/21 08:00 82 20 113/62 97 01/14/21 07:55 81 18 131/70 97 01/14/21 07:50 80 20 108/59 L 99 01/14/21 07:45 99.0 F 78 18 166/77 H 100 - Problem List & Annotations (1) Status post exploratory laparotomy SNOMED Code(s): 749687865, 26412808, 274295087 Code(s): Z98.890 - OTHER SPECIFIED POSTPROCEDURAL STATES Status: Acute Current Visit: Yes Annotation/Comment:: Drainage ofrectal/pelvic abscess (2) History of atrial fibrillation SNOMED Code(s): 313974722 Code(s): Z86.79 - PERSONAL HISTORY OF OTHER DISEASES OF THE CIRCULATORY SYSTEM Status: Chronic Current Visit: No (3) Essential hypertension SNOMED Code(s): 20812743 Code(s): I10 - ESSENTIAL (PRIMARY) HYPERTENSION Status: Chronic Current Visit: No - Problem List Review Problem List Initiated/Reviewed/Updated: Yes - Plan Plan:: ASSESSMENT AND RECOMMENDATIONS- Covid positive-no symptoms. -Not hypoxic and not febrile. 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 Triple-lumen catheter placed. Culture from the necrotic tissue was growing coag negative staph and strep viridans. Doing well since the most recent surgery. Getting dressing changes in the OR daily. -Empiric antibiotic coverage with Pip/Tazo and doxycycline initially and has been decreased to doxycycline to cover strep viridans which is susceptible -Management per surgical team Chronic atrial fibrillation-heart rate has been well controlled after transition to oral medications yesterday. -Continue metoprolol 25 mg twice a day -Propafenone 3 times a day -Discontinue cardiac monitoring Normocytic anemia-stable -probably related to recent surgery. -Some increased blood loss with the bladder injury -I would encourage a transfusion threshold of less than 8 unless hemodynamically unstable -Did receive blood today Probable urinary tract infection-urinalysis suggestive of infection with packed RBCs and white blood cells. This could explain some of the weakness and lethargy. Culture grew out strep viridans. -Should be covered by antibiotics as above VTE prophylaxis: Not indicated GI prophylaxis: Not indicated Diet: Soft diet Plan: He has 1 more day of antibiotics then they can be stopped. Hien Fofana, DO
[2021-01-14] MEDS: Melatonin 3 MG Tab PO SCH (20:36)
[2021-01-15] MEDS: 1: AA 5%/Calcium/D15W/Lytes 1,000 ML with MVI, Adult with Vitamin K 10 ML, Zinc/Copper/M IV SCH ×6 (00:09→13:16)
[2021-01-15] MEDS ORDERED: Meropenem 500 MG SDV ONE (06:37)
[2021-01-15] MEDS ORDERED: Propofol 200 MG/20 ML SDV ONE (07:25)
[2021-01-15] MEDS ORDERED: fentaNYL 100 MCG/2 ML SDV ONE (07:25)
[2021-01-15] MEDS ORDERED: Ketoconazole 2% Crm 30 GM Tube TOP PRN (08:14)
[2021-01-15] MEDS: Doxycycline 100 MG in Sodium Chloride 0.9% 100 ML IV SCH (10:22)
[2021-01-15] MEDS: Metoprolol Tartrate 25 MG Tab PO SCH ×2 (10:32→20:50)
[2021-01-15] MEDS: Acetaminophen 500 MG Tab PO SCH ×4 (10:32→22:16)
[2021-01-15] MEDS: traMADol 50 MG Tab PO PRN (10:32)
[2021-01-15] MEDS: Lactobacillus Rhamnosus GG (Probiotic) Cap PO SCH (10:33)
[2021-01-15] MEDS: Potassium Chloride 20 MEQ Tab.ER PO SCH (10:34)
[2021-01-15] MEDS: Pantoprazole 40 MG Tab.CR PO SCH (10:34)
[2021-01-15] MEDS: Fat Emulsion 100 ML IV SCH (16:16)
--- NOTE | 2021-01-15 18:23 | PCM.PN ---
- General Info Date of Service: 01/15/21 Admission Dx/Problem (Free Text): Admission Diagnosis/Problem Admission Diagnosis/Problem Weakness Subjective Update: Mr. Infante is lethargic and unable to answer questions enough to give a review of systems. He does appear to be uncomfortable. - Review of Systems Systems Review Comment:: Unable to obtain due to patient's mental status - Patient Data Vitals - Most Recent: Last Vital Signs Temp 97.5 F 01/15/21 15:05 Pulse 77 01/15/21 15:05 Resp 18 01/15/21 15:05 BP 138/71 01/15/21 15:05 Pulse Ox 97 01/15/21 15:05 Weight - Most Recent: 210 lb I&O - Last 24 Hours: Intake & Output 01/15/21 01/15/21 01/15/21 06:59 14:59 22:59 Intake Total 1236 815 Output Total 1200 1000 Balance 36 815 -1000 Lab Results Last 24 Hours: Laboratory Results - last 24 hr 01/15/21 01/15/21 01/15/21 Range/Units 04:40 04:40 04:40 WBC 7.1 (4.5-11.0) K/uL RBC 3.54 L (4.30-5.90) M/uL Hgb 9.9 L (12.0-15.0) g/dL Hct 31.9 L (40.0-54.0) % MCV 90 (80-98) fL MCH 28 (27-31) pg MCHC 31 L (32-36) % Plt Count 135 L (150-400) K/uL Sodium 140 (140-148) mmol/L Potassium 4.2 (3.6-5.2) mmol/L Chloride 105 (100-108) mmol/L Carbon Dioxide 27 (21-32) mmol/L Anion Gap 8.1 (5.0-14.0) mmol/L BUN 27 H (7-18) mg/dL Creatinine 0.7 L (0.8-1.3) mg/dL Est Cr Clr Drug Dosing 63.45 mL/min Estimated GFR (MDRD) > 60 (>60) Glucose 112 H (74-106) mg/dL Calcium 9.1 (8.5-10.1) mg/dL Phosphorus 3.1 (2.5-4.9) mg/dL Magnesium 1.5 L (1.8-2.4) mg/dL Total Bilirubin 0.6 (0.2-1.0) mg/dL AST 32 (15-37) U/L ALT 54 (12-78) U/L Alkaline Phosphatase 95 (46-116) U/L NT-Pro-B Natriuret Pep 1951 H (5-450) pg/mL Total Protein 4.7 L (6.4-8.2) g/dL Albumin 2.5 L (3.4-5.0) g/dL Globulin 2.2 L (2.3-3.5) g/dL Albumin/Globulin Ratio 1.1 L (1.2-2.2) Med Orders - Current: Current Medications Acetaminophen (Acetaminophen 500 Mg Tab) 1,000 mg PO TID [facility] Last Admin: 01/15/21 14:44 Dose: 1,000 mg Documented by: Haloperidol Lactate (Haloperidol Lactate 5 Mg/Ml Sdv) 2.5 mg IVPUSH Q4H PRN PRN Reason: Agitation Heparin Sodium (Porcine) (Heparin Sodium 100 Units/Ml 5 Ml Syringe) 300 units FLUSH ASDIRECTED PRN PRN Reason: IV Use Last Admin: 01/14/21 20:33 Dose: 300 units Documented by: Lactated Ringer's (Ringers, Lactated) 1,000 mls @ 25 mls/hr IV ASDIRECTED [facility] Last Admin: 01/07/21 14:52 Dose: 25 mls/hr Documented by: Doxycycline Hyclate 100 mg/ (Sodium Chloride) 100 mls @ 100 mls/hr IV Q12H [facility] Last Admin: 01/15/21 10:22 Dose: 100 mls/hr Documented by: Multivitamins/Minerals 10 ml/Zinc 1 ml/ Amino Ac/Electrol/Dextrose/Calcium 1,011 mls @ 82 mls/hr IV .BY DURATION [facility] Stop: 01/15/21 22:30 Last Admin: 01/15/21 00:09 Dose: 82 mls/hr Documented by: Amino Ac/Electrol/Dextrose/Calcium (Clinimix E 08/14) 1,000 mls @ 82 mls/hr IV .BY DURATION [facility] Stop: 01/15/21 22:30 Last Admin: 01/15/21 13:16 Dose: 82 mls/hr Documented by: Fat Emulsion Intravenous (Intralipid 20%) 100 mls @ 8.4 mls/hr IV Q48H [facility] Last Admin: 01/15/21 16:16 Dose: 8.4 mls/hr Documented by: Multivitamins/Minerals 10 ml/Zinc 1 ml/ Amino Ac/Electrol/Dextrose/Calcium 1,011 mls @ 82 mls/hr IV .BY DURATION [facility] Amino Ac/Electrol/Dextrose/Calcium (Clinimix E 08/14) 1,000 mls @ 82 mls/hr IV .BY DURATION [facility] Ketoconazole (Ketoconazole 2% Crm 30 Gm Tube) 0 gm TOP ASDIRECTED PRN PRN Reason: DRESSING CHANGES Lactobacillus Rhamnosus (Lactobacillus Rhamnosus Gg (Probiotic) Cap) 2 cap PO DAILY [facility] Last Admin: 01/15/21 10:33 Dose: 2 cap Documented by: Melatonin (Melatonin 3 Mg Tab) 9 mg PO BEDTIME [facility] Last Admin: 01/14/21 20:36 Dose: 9 mg Documented by: Metoprolol Tartrate (Metoprolol Tartrate 25 Mg Tab) 25 mg PO BID [facility] Last Admin: 01/15/21 10:32 Dose: 25 mg Documented by: Morphine Sulfate (Morphine 2 Mg/Ml Syringe) 2 mg IVPUSH Q2H PRN PRN Reason: Pain Last Admin: 01/06/21 15:03 Dose: 2 mg Documented by: Ondansetron HCl (Ondansetron 4 Mg/2 Ml Sdv) 4 mg IVPUSH Q4H PRN PRN Reason: Nausea Pantoprazole Sodium (Pantoprazole 40 Mg Tab.Cr) 40 mg PO ACBREAKFAST [facility] Last Admin: 01/15/21 10:34 Dose: 40 mg Documented by: Potassium Chloride (Potassium Chloride 20 Meq Tab.Er) 40 meq PO DAILY [facility] Last Admin: 01/15/21 10:34 Dose: 40 meq Documented by: Propafenone HCl (Propafenone 150 Mg Tab) 225 mg PO TID [facility] Last Admin: 01/15/21 14:57 Dose: 225 mg Documented by: Tramadol HCl (Tramadol 50 Mg Tab) 50 mg PO Q6H PRN PRN Reason: Pain Last Admin: 01/15/21 10:32 Dose: 50 mg Documented by: Discontinued Medications Acetaminophen (Acetaminophen 500 Mg Tab) 1,000 mg PO TID [facility] Last Admin: 01/07/21 11:48 Dose: Not Given Documented by: Acetaminophen (Acetaminophen 325 Mg Tab) 650 mg PO ONETIME PRN PRN Reason: HEADACHE,CHILLS Stop: 01/06/21 21:00 Acetaminophen (Acetaminophen 500 Mg Tab) 1,000 mg PO Q8H PRN PRN Reason: PAIN Last Admin: 01/08/21 04:30 Dose: 1,000 mg Documented by: Bupivacaine HCl (Bupivacaine 0.5% 50 Ml Mdv) Confirm Administered Dose 50 ml .ROUTE .STK-MED ONE Stop: 01/07/21 07:03 Bupivacaine HCl (Bupivacaine 0.5% 50 Ml Mdv) Confirm Administered Dose 50 ml .ROUTE .STK-MED ONE Stop: 01/09/21 06:40 Bupivacaine HCl/Epinephrine Bitart (Bupivacaine 0.5%/Epinephrine 1:200,000 50 Ml Mdv) Confirm Administered Dose 50 ml .ROUTE .STK-MED ONE Stop: 01/11/21 07:54 Dexamethasone (Dexamethasone 4 Mg/Ml Sdv) Confirm Administered Dose 4 mg .ROUTE .STK-MED ONE Stop: 01/07/21 06:54 Dexamethasone (Dexamethasone 4 Mg/Ml Sdv) Confirm Administered Dose 4 mg .ROUTE .STK-MED ONE Stop: 01/11/21 06:57 Diphenhydramine HCl (Diphenhydramine 50 Mg/Ml Sdv) 50 mg IVPUSH ONETIME PRN PRN Reason: ALLERGIC RXN Stop: 01/06/21 21:00 Epinephrine HCl (Epinephrine 1 Mg/Ml Sdv) 0.3 mg IM ONETIME PRN PRN Reason: ALLERGIC RXN Stop: 01/06/21 21:00 Famotidine (Famotidine 20 Mg/2 Ml Sdv) 20 mg IV ONETIME PRN PRN Reason: ALLERGIC RXN Stop: 01/06/21 21:00 Fentanyl (Fentanyl 100 Mcg/2 Ml Sdv) Confirm Administered Dose 100 mcg .ROUTE .STK-MED ONE Stop: 01/07/21 06:52 Fentanyl (Fentanyl 100 Mcg/2 Ml Sdv) Confirm Administered Dose 200 mcg .ROUTE .STK-MED ONE Stop: 01/09/21 06:46 Fentanyl (Fentanyl 100 Mcg/2 Ml Sdv) 100 mcg .ROUTE .STK-MED ONE Stop: 01/09/21 07:01 Fentanyl (Fentanyl 100 Mcg/2 Ml Sdv) Confirm Administered Dose 100 mcg .ROUTE .STK-MED ONE Stop: 01/10/21 06:30 Fentanyl (Fentanyl 100 Mcg/2 Ml Sdv) Confirm Administered Dose 100 mcg .ROUTE .STK-MED ONE Stop: 01/11/21 06:57 Fentanyl (Fentanyl 100 Mcg/2 Ml Sdv) Confirm Administered Dose 100 mcg .ROUTE .STK-MED ONE Stop: 01/11/21 07:12 Fentanyl (Fentanyl 100 Mcg/2 Ml Sdv) Confirm Administered Dose 100 mcg .ROUTE .STK-MED ONE Stop: 01/13/21 07:13 Fentanyl (Fentanyl 100 Mcg/2 Ml Sdv) Confirm Administered Dose 100 mcg .ROUTE .STK-MED ONE Stop: 01/14/21 07:06 Fentanyl (Fentanyl 100 Mcg/2 Ml Sdv) Confirm Administered Dose 100 mcg .ROUTE .STK-MED ONE Stop: 01/15/21 07:26 Furosemide (Furosemide 20 Mg/2 Ml Vial) 20 mg IVPUSH ONETIME ONE Stop: 01/07/21 14:01 Last Admin: 01/07/21 13:16 Dose: 20 mg Documented by: Furosemide (Furosemide 20 Mg/2 Ml Vial) 20 mg IVPUSH Q6H [facility] Stop: 01/08/21 15:01 Last Admin: 01/08/21 14:39 Dose: 20 mg Documented by: Furosemide (Furosemide 20 Mg/2 Ml Vial) 20 mg IVPUSH Q10H [facility] Stop: 01/09/21 20:01 Last Admin: 01/09/21 19:42 Dose: 20 mg Documented by: Furosemide (Furosemide 20 Mg/2 Ml Vial) 20 mg IV ONETIME ONE Stop: 01/12/21 14:01 Last Admin: 01/12/21 13:20 Dose: 20 mg Documented by: Furosemide (Furosemide 20 Mg/2 Ml Vial) 20 mg IVPUSH ONETIME ONE Stop: 01/13/21 09:16 Last Admin: 01/13/21 16:40 Dose: 20 mg Documented by: Furosemide (Furosemide 20 Mg/2 Ml Vial) 20 mg IVPUSH ONETIME ONE Stop: 01/14/21 09:31 Last Admin: 01/14/21 09:28 Dose: 20 mg Documented by: Glycopyrrolate (Glycopyrrolate 0.2 Mg/Ml 5 Ml Mdv) Confirm Administered Dose 1 mg .ROUTE .STK-MED ONE Stop: 01/07/21 06:54 Glycopyrrolate (Glycopyrrolate 0.2 Mg/Ml 5 Ml Mdv) Confirm Administered Dose 1 mg .ROUTE .STK-MED ONE Stop: 01/11/21 06:57 Heparin Sodium (Porcine) (Heparin Sodium 100 Units/Ml 5 Ml Syringe) Confirm Administered Dose 500 units .ROUTE .STK-MED ONE Stop: 01/07/21 07:03 Lactated Ringer's (Ringers, Lactated) 1,000 mls @ 100 mls/hr IV ASDIRECTED [facility] Lactated Ringer's (Ringers, Lactated) 1,000 mls @ 40 mls/hr IV ASDIRECTED [facility] Potassium Phosphate 15 mmol/ (Premix) 250 mls @ 85 mls/hr IV Q3H [facility] Stop: 01/06/21 13:57 Last Admin: 01/06/21 11:20 Dose: 85 mls/hr Documented by: Magnesium Sulfate 2 gm/ Premix 50 mls @ 25 mls/hr IV Q6H [facility] Stop: 01/06/21 17:59 Last Admin: 01/06/21 09:15 Dose: 25 mls/hr Documented by: Magnesium Sulfate 2 gm/ Premix 50 mls @ 25 mls/hr IV Q6H [facility] Stop: 01/06/21 15:59 Last Admin: 01/06/21 14:23 Dose: 25 mls/hr Documented by: Albumin Human (Albumin 25%) 25 gm in 100 mls @ 25 mls/hr IV Q24H [facility] Stop: 01/09/21 19:59 Last Admin: 01/09/21 16:06 Dose: 25 mls/hr Documented by: Ceftriaxone Sodium 2 gm/ (Sodium Chloride) 50 mls @ 100 mls/hr IV Q24H [facility] Stop: 01/07/21 16:00 Last Admin: 01/07/21 13:51 Dose: 100 mls/hr Documented by: Acetaminophen 1,000 mg/ Premix 100 mls @ 400 mls/hr IV Q8H PRN PRN Reason: Pain Stop: 01/07/21 19:14 Last Admin: 01/07/21 04:55 Dose: 400 mls/hr Documented by: Multivitamins/Minerals 10 ml/Zinc 1 ml/ Amino Ac/Electrol/Dextrose/Calcium 1,011 mls @ 82 mls/hr IV .BY DURATION [facility] Stop: 01/11/21 15:30 Last Admin: 01/10/21 17:54 Dose: 82 mls/hr Documented by: Amino Ac/Electrol/Dextrose/Calcium (Clinimix E 5/15) 1,000 mls @ 82 mls/hr IV .BY DURATION [facility] Stop: 01/11/21 15:30 Last Admin: 01/11/21 07:02 Dose: 82 mls/hr Documented by: Piperacillin/Tazobactam/ (Dextrose 3.375 gm/ Premix) 50 mls @ 100 mls/hr IV Q6H [facility] Last Admin: 01/11/21 10:28 Dose: Not Given Documented by: Potassium Phosphate 22.5 mmole (/ Sodium Chloride) 107.5 mls @ 30 mls/hr IV Q4H [facility] Stop: 01/08/21 17:34 Last Admin: 01/08/21 15:41 Dose: 30 mls/hr Documented by: Sodium Chloride (Normal Saline) Confirm Administered Dose 10 mls @ as directed .ROUTE .STK-MED ONE Stop: 01/09/21 06:49 Potassium Phosphate 30 mmole/ (Sodium Chloride) 110 mls @ 20 mls/hr IV ONETIME ONE Stop: 01/09/21 15:29 Last Admin: 01/09/21 11:16 Dose: 20 mls/hr Documented by: Magnesium Sulfate 2 gm/ Premix 50 mls @ 25 mls/hr IV Q6H [facility] Stop: 01/11/21 05:59 Last Admin: 01/11/21 04:46 Dose: 25 mls/hr Documented by: Potassium Phosphate 30 mmole/ (Sodium Chloride) 110 mls @ 20 mls/hr IV ONETIME ONE Stop: 01/10/21 16:29 Last Admin: 01/10/21 11:28 Dose: 20 mls/hr Documented by: Multivitamins/Minerals 10 ml/Zinc 1 ml/ Amino Ac/Electrol/Dextrose/Calcium 1,011 mls @ 82 mls/hr IV .BY DURATION [facility] Stop: 01/13/21 19:00 Last Admin: 01/12/21 21:17 Dose: 82 mls/hr Documented by: Amino Ac/Electrol/Dextrose/Calcium (Clinimix E 5/15) 1,000 mls @ 82 mls/hr IV .BY DURATION [facility] Stop: 01/13/21 19:00 Last Admin: 01/13/21 09:56 Dose: 82 mls/hr Documented by: Albumin Human (Albumin 25%) 25 gm in 100 mls @ 25 mls/hr IV Q24H [facility] Stop: 01/15/21 16:59 Last Admin: 01/15/21 13:19 Dose: 25 mls/hr Documented by: Lidocaine HCl (Lidocaine 2% Jelly 10 Ml Urojet) Confirm Administered Dose 10 ml .ROUTE .STK-MED ONE Stop: 01/05/21 18:51 Last Admin: 01/05/21 19:33 Dose: Not Given Documented by: Lidocaine/Epinephrine (Lidocaine 1% With Epinephrine 1:100,000 50 Ml Mdv) Confirm Administered Dose 50 ml .ROUTE .STK-MED ONE Stop: 01/07/21 07:03 Lidocaine/Epinephrine (Lidocaine 1% With Epinephrine 1:100,000 50 Ml Mdv) Confirm Administered Dose 50 ml .ROUTE .STK-MED ONE Stop: 01/09/21 06:40 Meropenem (Meropenem 500 Mg Sdv) Confirm Administered Dose 500 mg .ROUTE .STK- MED ONE Stop: 01/07/21 08:33 Meropenem (Meropenem 500 Mg Sdv) Confirm Administered Dose 500 mg .ROUTE .STK- MED ONE Stop: 01/09/21 06:40 Last Admin: 01/09/21 08:00 Dose: 500 mg Documented by: Meropenem (Meropenem 500 Mg Sdv) Confirm Administered Dose 500 mg .ROUTE .STK- MED ONE Stop: 01/10/21 06:19 Last Admin: 01/10/21 07:31 Dose: 500 mg Documented by: Meropenem (Meropenem 500 Mg Sdv) Confirm Administered Dose 500 mg .ROUTE .STK- MED ONE Stop: 01/11/21 06:34 Meropenem (Meropenem 500 Mg Sdv) Confirm Administered Dose 500 mg .ROUTE .STK- MED ONE Stop: 01/12/21 06:36 Meropenem (Meropenem 500 Mg Sdv) Confirm Administered Dose 500 mg .ROUTE .STK- MED ONE Stop: 01/13/21 06:45 Last Admin: 01/13/21 07:30 Dose: 500 mg Documented by: Meropenem (Meropenem 500 Mg Sdv) Confirm Administered Dose 500 mg .ROUTE .STK- MED ONE Stop: 01/14/21 07:13 Meropenem (Meropenem 500 Mg Sdv) Confirm Administered Dose 500 mg .ROUTE .STK- MED ONE Stop: 01/15/21 06:38 Last Admin: 01/15/21 08:08 Dose: 500 mg Documented by: Methylprednisolone Sodium Succinate (Methylprednisolone Sodium Succinate 125 Mg/2 Ml Sdv) 125 mg IVPUSH ONETIME PRN PRN Reason: ALLERGIC RXN Stop: 01/06/21 21:00 Metoprolol Tartrate (Metoprolol Tartrate 5 Mg/5 Ml Sdv) 5 mg IVPUSH Q6H [facility] Last Admin: 01/08/21 11:23 Dose: Not Given Documented by: Neostigmine Methylsulfate (Neostigmine Methylsulfate 1 Mg/Ml 5 Ml Syringe) Confirm Administered Dose 5 mg .ROUTE .STK-MED ONE Stop: 01/07/21 06:54 Neostigmine Methylsulfate (Neostigmine Methylsulfate 1 Mg/Ml 5 Ml Syringe) Confirm Administered Dose 5 mg .ROUTE .STK-MED ONE Stop: 01/11/21 06:57 Non-Formulary Medication (Casirivimab 120 Mg/Ml Vial) 600 mg SUBCUT ONETIME ONE Stop: 01/06/21 13:01 Last Admin: 01/06/21 12:57 Dose: 600 mg Documented by: Non-Formulary Medication (Imdevimab 120 Mg/Ml Vial) 600 mg SUBCUT ONETIME ONE Stop: 01/06/21 13:01 Last Admin: 01/06/21 12:57 Dose: 600 mg Documented by: Non-Formulary Medication (Central Total Parenteral Nutrition Bag) 0 ml IV ONETIME ONE Stop: 01/12/21 11:31 Last Admin: 01/12/21 13:10 Dose: Not Given Documented by: Ondansetron HCl (Ondansetron 4 Mg/2 Ml Sdv) Confirm Administered Dose 4 mg .ROUTE .STK-MED ONE Stop: 01/07/21 06:54 Ondansetron HCl (Ondansetron 4 Mg/2 Ml Sdv) Confirm Administered Dose 4 mg .ROUTE .STK-MED ONE Stop: 01/11/21 06:57 Phenylephrine HCl (Phenylephrine 1% 10 Mg/Ml Sdv) Confirm Administered Dose 10 mg .ROUTE .STK-MED ONE Stop: 01/09/21 06:48 Piperacillin Sod/Tazobactam Sod (Piperacillin/Tazobactam 3.375 Gm Vial) Confirm Administered Dose 3.375 gm .ROUTE .STK-MED ONE Stop: 01/07/21 08:41 Propafenone HCl (Propafenone 150 Mg Tab) 225 mg PO BID [facility] Last Admin: 01/05/21 21:18 Dose: 225 mg Documented by: Propofol (Propofol 200 Mg/20 Ml Sdv) Confirm Administered Dose 200 mg .ROUTE .STK-MED ONE Stop: 01/07/21 06:54 Propofol (Propofol 200 Mg/20 Ml Sdv) Confirm Administered Dose 400 mg .ROUTE .STK-MED ONE Stop: 01/09/21 06:47 Propofol (Propofol 200 Mg/20 Ml Sdv) 200 mg .ROUTE .STK-MED ONE Stop: 01/09/21 07:01 Propofol (Propofol 200 Mg/20 Ml Sdv) Confirm Administered Dose 200 mg .ROUTE .STK-MED ONE Stop: 01/10/21 06:30 Propofol (Propofol 200 Mg/20 Ml Sdv) Confirm Administered Dose 600 mg .ROUTE .STK-MED ONE Stop: 01/11/21 06:57 Propofol (Propofol 200 Mg/20 Ml Sdv) Confirm Administered Dose 400 mg .ROUTE .STK-MED ONE Stop: 01/13/21 07:06 Propofol (Propofol 200 Mg/20 Ml Sdv) Confirm Administered Dose 200 mg .ROUTE .STK-MED ONE Stop: 01/14/21 07:05 Propofol (Propofol 200 Mg/20 Ml Sdv) Confirm Administered Dose 200 mg .ROUTE .STK-MED ONE Stop: 01/15/21 07:26 Rocuronium [place] (Rocuronium 50 Mg/5 Ml Vial) Confirm Administered Dose 50 mg .ROUTE .STK-MED ONE Stop: 01/07/21 06:54 Rocuronium [place] (Rocuronium 50 Mg/5 Ml Vial) Confirm Administered Dose 50 mg .ROUTE .STK-MED ONE Stop: 01/11/21 06:57 Rocuronium [place] (Rocuronium 50 Mg/5 Ml Vial) 50 mg IV .STK-MED ONE Stop: 01/10/21 07:01 Succinylcholine Chloride (Succinylcholine 200 Mg/10 Ml Mdv) Confirm Administered Dose 200 mg .ROUTE .[facility] ONE Stop: 01/11/21 06:57 - Exam Central Line Total Time: 8Days 0Hours Urinary Catheter Total Time: 3Days 15Hours General: No: Alert, Oriented HEENT: Pupils Equal, EOMI, Mucous Membr. Moist/[place] Neck: Supple Lungs: Clear to Auscultation, Normal Respiratory Effort Cardiovascular: Regular Rate, Regular Rhythm GI/Abdominal Exam: Normal Bowel Sounds, Soft, Non-Tender, No Organomegaly, No Distention, No Abnormal Bruit, No Mass, Pelvis Stable Extremities: Normal Inspection, Non-Tender, No Pedal Edema, Normal Capillary Refill Skin: Warm, Dry, Intact Neurological: No New Focal Deficit Psy/Mental Status: No: Alert, Normal Affect, Normal Mood - Patient Data Lab Results Last 24 hrs: Laboratory Results - last 24 hr 01/15/21 01/15/21 01/15/21 Range/Units 04:40 04:40 04:40 WBC 7.1 (4.5-11.0) K/uL RBC 3.54 L (4.30-5.90) M/uL Hgb 9.9 L (12.0-15.0) g/dL Hct 31.9 L (40.0-54.0) % MCV 90 (80-98) fL MCH 28 (27-31) pg MCHC 31 L (32-36) % Plt Count 135 L (150-400) K/uL Sodium 140 (140-148) mmol/L Potassium 4.2 (3.6-5.2) mmol/L Chloride 105 (100-108) mmol/L Carbon Dioxide 27 (21-32) mmol/L Anion Gap 8.1 (5.0-14.0) mmol/L BUN 27 H (7-18) mg/dL Creatinine 0.7 L (0.8-1.3) mg/dL Est Cr Clr Drug Dosing 63.45 mL/min Estimated GFR (MDRD) > 60 (>60) Glucose 112 H (74-106) mg/dL Calcium 9.1 (8.5-10.1) mg/dL Phosphorus 3.1 (2.5-4.9) mg/dL Magnesium 1.5 L (1.8-2.4) mg/dL Total Bilirubin 0.6 (0.2-1.0) mg/dL AST 32 (15-37) U/L ALT 54 (12-78) U/L Alkaline Phosphatase 95 (46-116) U/L NT-Pro-B Natriuret Pep 1951 H (5-450) pg/mL Total Protein 4.7 L (6.4-8.2) g/dL Albumin 2.5 L (3.4-5.0) g/dL Globulin 2.2 L (2.3-3.5) g/dL Albumin/Globulin Ratio 1.1 L (1.2-2.2) Result Diagrams: 01/15/21 04:40 01/15/21 04:40 Sepsis Event Note - Evaluation Sepsis Screening Result: No Definite Risk - Focused Exam Vital Signs: Vital Signs Temp Pulse Pulse Resp BP BP Pulse Ox 01/15/21 15:05 97.5 F 77 18 138/71 97 01/15/21 14:57 75 01/15/21 11:40 75 16 139/60 95 01/15/21 10:40 70 16 156/66 H 94 L 01/15/21 10:33 87 01/15/21 10:32 93 136/46 L 01/15/21 10:10 67 16 136/46 L 95 01/15/21 09:40 67 16 152/49 H 95 01/15/21 09:25 71 16 143/63 H 96 01/15/21 09:10 97.9 F 75 18 149/63 H 96 01/15/21 08:55 76 18 144/70 H 95 01/15/21 08:40 96.5 F L 84 18 145/63 H 95 01/15/21 08:15 96.8 F L 91 16 141/71 H 97 01/15/21 08:10 82 16 139/67 97 01/15/21 08:05 83 16 130/69 98 01/15/21 08:00 83 16 124/78 98 01/15/21 07:55 96.6 F L 83 15 158/93 H 99 - Problem List & Annotations (1) Status post exploratory laparotomy SNOMED Code(s): 801974543, 48412694, 589094771 Code(s): Z98.890 - OTHER SPECIFIED POSTPROCEDURAL STATES Status: Acute Current Visit: Yes Annotation/Comment:: Drainage ofrectal/pelvic abscess (2) History of atrial fibrillation SNOMED Code(s): 830673505 Code(s): Z86.79 - PERSONAL HISTORY OF OTHER DISEASES OF THE CIRCULATORY SYSTEM Status: Chronic Current Visit: No (3) Essential hypertension SNOMED Code(s): 89776644 Code(s): I10 - ESSENTIAL (PRIMARY) HYPERTENSION Status: Chronic Current Visit: No - Problem List Review Problem List Initiated/Reviewed/Updated: Yes - Plan Plan:: ASSESSMENT AND RECOMMENDATIONS- Covid positive-no symptoms. -Not hypoxic and not febrile. 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 Triple-lumen catheter placed. Culture from the necrotic tissue was growing coag negative staph and strep viridans. Doing well since the most recent surgery. Getting dressing changes in the OR daily. -Empiric antibiotic coverage with Pip/Tazo and doxycycline initially and has been decreased to doxycycline to cover strep viridans which is susceptible -Management per surgical team Chronic atrial fibrillation-heart rate has been well controlled after transition to oral medications yesterday. -Continue metoprolol 25 mg twice a day -Propafenone 3 times a day -Discontinue cardiac monitoring Normocytic anemia-stable -probably related to recent surgery. -Some increased blood loss with the bladder injury -I would encourage a transfusion threshold of less than 8 unless hemodynamically unstable -Did receive blood today Probable urinary tract infection-urinalysis suggestive of infection with packed RBCs and white blood cells. This could explain some of the weakness and lethargy. Culture grew out strep viridans. -Should be covered by antibiotics as above VTE prophylaxis: Not indicated GI prophylaxis: Not indicated Diet: Soft diet Plan: He has completed a 10-day course of antibiotic and that will be stopped. I will sign off this case unless requested for further evaluation. Thank you Hien Fofana,
[2021-01-15] MEDS: Melatonin 3 MG Tab PO SCH (20:50)
[2021-01-16] MEDS: 1: AA 5%/Calcium/D15W/Lytes 1,000 ML with MVI, Adult with Vitamin K 10 ML, Zinc/Copper/M IV SCH ×6 (01:33→13:52)
[2021-01-16] MEDS ORDERED: Propofol 200 MG/20 ML SDV ONE (07:21)
[2021-01-16] MEDS ORDERED: fentaNYL 100 MCG/2 ML SDV ONE (07:21)
[2021-01-16] MEDS: Acetaminophen 500 MG Tab PO SCH ×3 (10:08→20:22)
[2021-01-16] MEDS: Metoprolol Tartrate 25 MG Tab PO SCH ×2 (10:09→20:21)
[2021-01-16] MEDS: Potassium Chloride 20 MEQ Tab.ER PO SCH (10:10)
[2021-01-16] MEDS: Magnesium Sulfate/Water 2 GM in Premix Bag 1 BAG IV SCH ×3 (10:16→23:43)
[2021-01-16] MEDS: Lactobacillus Rhamnosus GG (Probiotic) Cap PO SCH (10:19)
[2021-01-16] MEDS: Pantoprazole 40 MG Tab.CR PO SCH (10:19)
[2021-01-16] MEDS ORDERED: Furosemide 20 MG/2 ML VIAL IVPUSH ONE ×2 (11:00→16:00)
[2021-01-16] MEDS: Melatonin 3 MG Tab PO SCH (20:21)
[2021-01-16] MEDS: traMADol 50 MG Tab PO PRN (20:39)
[2021-01-17] MEDS: 1: AA 5%/Calcium/D15W/Lytes 1,000 ML with MVI, Adult with Vitamin K 10 ML, Zinc/Copper/M IV SCH ×6 (02:12→14:51)
[2021-01-17] MEDS: Magnesium Sulfate/Water 2 GM in Premix Bag 1 BAG IV SCH ×4 (04:00→21:27)
[2021-01-17] MEDS ORDERED: Meropenem 500 MG SDV ONE (06:45)
[2021-01-17] MEDS ORDERED: Propofol 200 MG/20 ML SDV ONE ×2 (06:58→07:02)
[2021-01-17] MEDS: Pantoprazole 40 MG Tab.CR PO SCH (09:15)
[2021-01-17] MEDS: Lactobacillus Rhamnosus GG (Probiotic) Cap PO SCH (09:59)
[2021-01-17] MEDS: Potassium Chloride 20 MEQ Tab.ER PO SCH (10:00)
[2021-01-17] MEDS: Metoprolol Tartrate 25 MG Tab PO SCH ×2 (10:00→21:15)
[2021-01-17] MEDS: Acetaminophen 500 MG Tab PO SCH ×3 (10:01→21:14)
[2021-01-17] MEDS: traMADol 50 MG Tab PO PRN (12:40)
[2021-01-17] MEDS: Fat Emulsion 100 ML IV SCH (15:25)
[2021-01-17] MEDS: Melatonin 3 MG Tab PO SCH (21:15)
[2021-01-18] MEDS: 1: AA 5%/Calcium/D15W/Lytes 1,000 ML with MVI, Adult with Vitamin K 10 ML, Zinc/Copper/M IV SCH ×6 (04:33→16:47)
[2021-01-18] MEDS: Magnesium Sulfate/Water 2 GM in Premix Bag 1 BAG IV SCH (04:36)
[2021-01-18] MEDS ORDERED: Propofol 200 MG/20 ML SDV ONE (07:09)
[2021-01-18] MEDS ORDERED: fentaNYL 100 MCG/2 ML SDV ONE (07:10)
--- NOTE | 2021-01-18 07:42 | OR ---
DATE OF PROCEDURE: 01/16/2021 SURGEON: Mohsen Duggan MD PREOPERATIVE DIAGNOSIS: Large open pelvic and perineal wound with focal soft tissue necrosis. POSTOPERATIVE DIAGNOSIS: Large open pelvic and perineal wound with focal soft tissue necrosis. OPERATIVE PROCEDURE: Examination of large open pelvic and perineal wound with: 1. Debridement of necrotic soft tissue (94142). 2. Dressing change under anesthesia (41998). ANESTHESIA: IV sedation. INDICATION FOR PROCEDURE: The patient is brought once again for dressing change under anesthesia with debridement of necrotic soft tissue within his large pelvic and perineal wound. Potential risks have been reviewed with the patient's , who has given consent for these serial dressing changes under anesthesia. DETAILS OF PROCEDURE: The patient was taken to the operating room, placed in a lithotomy position. IV sedation was administered, after which previous packing was removed. Wound was then irrigated with meropenem-containing saline solution. There was some additional necrotic material on the posterior and lateral aspects of the perineal and pelvic nichols, which was debrided. This included some adipose tissue along with fascia and musculature. This necrotic tissue was then sent as specimen. The wound was then packed with iodoform gauze. The edges were reflected somewhat with some fungal overgrowth and the skin adjacent to the open wound treated with some ketoconazole cream and further dressing applied. The patient was taken to the recovery room in satisfactory condition. There were no evident complications. Mohsen Duggan MD /[id number]
--- NOTE | 2021-01-18 07:57 | PN ---
DATE OF SERVICE: 01/18/2021 SUBJECTIVE: Arnie is going down to the OR for his daily dressing changes. He has been running a low-grade temp of 99.1 to 99.9. Per nursing staff, he was sleepier during the night. REVIEW OF SYSTEMS: Remainder of review of systems negative for any pertinent positives and negatives. OBJECTIVE: HEART: Regular rate and rhythm. LUNGS: Clear. PLAN: Orders to be written after dressing change in OR. Tisha Crocker PA-C /[id number]
--- NOTE | 2021-01-18 08:27 | PN ---
DATE OF SERVICE: 01/15/2021 The patient has been afebrile with stable vital signs. He remains fairly confused and somewhat sedated during much of the day. We will also try to minimize the amount of IV sedation given further daily dressing changes. Dressing changes undertaken today. Still has some focal necrotic tissue. This is being debrided daily within the pelvic and perineal wound. Otherwise, it has started cleaning up fairly nicely. We will continue the TPN. At this point, we will need to add some lipids every other day to avoid fatty acid deficiency. Otherwise, he will be coming off isolation tomorrow which will hopefully be good in terms of see his and such. Otherwise, continue daily dressing changes and maximize his activity level. Mohsen Duggan MD /[id number]
[2021-01-18] MEDS: Acetaminophen 500 MG Tab PO SCH ×4 (09:27→21:26)
[2021-01-18] MEDS: Lactobacillus Rhamnosus GG (Probiotic) Cap PO SCH (09:27)
[2021-01-18] MEDS: Metoprolol Tartrate 25 MG Tab PO SCH ×3 (09:28→21:25)
[2021-01-18] MEDS: Pantoprazole 40 MG Tab.CR PO SCH (09:28)
[2021-01-18] MEDS: Potassium Chloride 20 MEQ Tab.ER PO SCH (09:28)
--- NOTE | 2021-01-18 10:27 | OR ---
DATE OF PROCEDURE: 01/15/2021 SURGEON: Mohsen Duggan MD PREOPERATIVE DIAGNOSIS: Large perineal and pelvic open wound with a focal soft tissue necrosis. POSTOPERATIVE DIAGNOSIS: Large perineal and pelvic open wound with a focal soft tissue necrosis. OPERATIVE PROCEDURE: Examination of large perineal and pelvic open wound with: 1. Debridement of focal soft tissue necrosis involving subcutaneous tissue, fascia, and musculature (16651). 2. Dressing change under anesthesia (78459). ANESTHESIA: IV sedation. INDICATIONS FOR PROCEDURE: An 89-year-old male presenting with daily wound care to large pelvic and perineal open wound. The plan is to proceed with IV sedation, irrigation and debridement with dressing change under anesthesia. Potential risks have been reviewed with the patient's for these daily dressing changes and she wishes to proceed. DETAILS OF PROCEDURE: The patient was taken to the operating room, placed in a lithotomy position. The previous packing was removed after IV sedation was administered and wound was then inspected and then prepped and draped with Betadine. Wound was then irrigated with meropenem-containing saline solution. There was some focal additional necrotic soft tissue present posteriorly and laterally on each side which was further debrided sharply. This included layers which would include retroperitoneal fat, fascia, and some musculature. This specimen was delivered from the field. No significant bleeding was noted at this point. Wound was then packed with iodoform gauze and the procedure concluded. The patient was noted to have some degree of fungal overgrowth in the adjacent thighs and perineal area and ketoconazole cream was applied to those areas and the patient was taken to the recovery room in satisfactory condition. There were no immediate complications. Mohsen Duggan MD /[id number]
--- NOTE | 2021-01-18 10:33 | PN ---
DATE OF SERVICE: 01/14/2021 The patient is clinically stable. Still has discomfort diffusely where there appeared to some degree of emotional trauma some underlying dementia. Otherwise, has been clinically stable. Urine output has been very good. Hemoglobin is up at 10.1. Electrolytes are unremarkable. He underwent additional debridement of the necrotic tissue in the pelvic and perineal wounds today and will have dressing changes daily for the next several days . Otherwise, continue TPN, resume his regular diet. Bladder catheter appears to be and probably needs to be pulled on but otherwise the suprapubic catheter appears to be in place and functioning satisfactorily. Mohsen Duggan MD /[id number]
--- NOTE | 2021-01-18 11:06 | PN ---
DATE OF SERVICE: 01/17/2021 The patient has been afebrile with stable vital signs. He is a little bit more alert as we decreased the amount of sedation received during the dressing changes. We will continue these for the time being as he still has a quite wide open wound and requiring some debridement of some necrotic tissue each day. Otherwise, the oral intake is fair and we will continue the TPN for supplement of the nutritional status and try to get him up in a chair at least 3 times a day and begin more active physical therapy. Mohsen Duggan MD /[id number]
[2021-01-18] MEDS: Melatonin 3 MG Tab PO SCH ×2 (20:28→21:25)
[2021-01-18] MEDS ORDERED: Acetaminophen 1,000 MG in Premix Bag 1 BAG IV ONE (21:22)
[2021-01-19] MEDS: 1: AA 5%/Calcium/D15W/Lytes 1,000 ML with MVI, Adult with Vitamin K 10 ML, Zinc/Copper/M IV SCH ×6 (05:38→18:01)
[2021-01-19] MEDS ORDERED: Propofol 200 MG/20 ML SDV ONE (06:51)
--- NOTE | 2021-01-19 09:19 | CR ---
CHEST: Portable 01/19/2021 at 7:37 AM CLINICAL HISTORY:Central line placement COMPARISON:01/07/2021 FINDINGS: Heart is enlarged. Pulmonary vascularity is normal. There is some patchy airspace disease in the left lower lung field which has improved slightly since prior study. Left jugular catheter is been placed. Catheter tip is at the superior vena cava atrial junction. Impression: [Catheter placement in good position. No evidence of pneumothorax Slight improvement in aeration at both lung bases
[2021-01-19] MEDS: Metoprolol Tartrate 25 MG Tab PO SCH ×2 (10:14→20:14)
--- NOTE | 2021-01-19 10:15 | PN ---
DATE OF SERVICE: 01/19/2021 SUBJECTIVE: Arnie is going to OR to have his dressing changed and a new central line put in. Temp max 101.8. He has been very sleepy, unable to take his oral medications. Nursing staff has tried to crush them. REVIEW OF SYSTEMS: Remainder of review of systems negative for any pertinent positives and negatives. OBJECTIVE: GENERAL: Arnie Infante is an 89-year-old male. VITAL SIGNS: TPR is 96.8, 83, 16; blood pressure is 137/57. HEART: Regular rate and rhythm. LUNGS: Decreased breath sounds. PLAN: Orders to be written after surgical procedure. Tisha Crocker PA-C /[id number]
[2021-01-19] MEDS: Pantoprazole 40 MG Tab.CR PO SCH (10:19)
[2021-01-19] MEDS: Acetaminophen 500 MG Tab PO SCH ×4 (10:19→20:14)
[2021-01-19] MEDS: Lactobacillus Rhamnosus GG (Probiotic) Cap PO SCH (10:22)
[2021-01-19] MEDS: Potassium Chloride 20 MEQ Tab.ER PO SCH (10:27)
[2021-01-19] MEDS: Linezolid 600 MG in Premix Bag 1 BAG IV SCH (13:24)
[2021-01-19] MEDS: traMADol 50 MG Tab PO PRN (15:55)
[2021-01-19] MEDS: Fat Emulsion 100 ML IV SCH (15:56)
[2021-01-19] MEDS: Melatonin 3 MG Tab PO SCH (20:14)
--- NOTE | 2021-01-20 00:45 | OR ---
DATE OF PROCEDURE: 01/17/2021 SURGEON: Mohsen Duggan MD PREOPERATIVE DIAGNOSIS: Large open pelvic and perineal wound with focal soft tissue necrosis. POSTOPERATIVE DIAGNOSIS: Large open pelvic and perineal wound with focal soft tissue necrosis. PROCEDURE PERFORMED: Examination of large open pelvic and perineal wound with: 1. Debridement of areas of soft tissue necrosis involving subcutaneous tissue, fascia, and musculature (28987). 2. Dressing change under anesthesia (77242). ANESTHESIA: IV sedation. INDICATION FOR PROCEDURE: The patient once again presents for change of this large pelvic wound and debridement as indicated. Potential risks have been reviewed with the patient's , and she wishes to proceed. DETAILS OF PROCEDURE: The patient was taken to the operating room and placed in a lithotomy position. IV sedation was administered, and the previous packing was then removed. The patient had some additional necrotic tissue along the posterior and lateral aspects of the perineal and pelvic wound which were debrided sharply, and at that point, the wound was then packed with iodoform gauze and the procedure concluded. The patient tolerated the procedure well. Mohsen Duggan MD /[id number]
[2021-01-20] MEDS: Linezolid 600 MG in Premix Bag 1 BAG IV SCH ×2 (01:52→13:47)
[2021-01-20] MEDS: 1: AA 5%/Calcium/D15W/Lytes 1,000 ML with MVI, Adult with Vitamin K 10 ML, Zinc/Copper/M IV SCH ×6 (06:05→18:22)
[2021-01-20] MEDS: Morphine 2 MG/ML SYRINGE IVPUSH PRN (06:42)
[2021-01-20] MEDS ORDERED: Central Total Parenteral Nutrition Bag SCH (08:00)
[2021-01-20] MEDS: Potassium Chloride 20 MEQ Tab.ER PO SCH ×2 (09:50→10:14)
[2021-01-20] MEDS: Pantoprazole 40 MG Tab.CR PO SCH ×2 (09:50→10:13)
[2021-01-20] MEDS: Metoprolol Tartrate 25 MG Tab PO SCH ×2 (09:50→22:22)
[2021-01-20] MEDS: Acetaminophen 500 MG Tab PO SCH ×4 (09:50→22:23)
[2021-01-20] MEDS: Lactobacillus Rhamnosus GG (Probiotic) Cap PO SCH ×2 (09:50→10:14)
--- NOTE | 2021-01-20 10:59 | PN ---
DATE OF SERVICE: 01/20/2021 SUBJECTIVE: Arnie has been a little bit more alert during the past 24 hours. He has taken his medication in pudding and it seems to have gone well. Vital signs have been stable. He has been afebrile. Oral intake, nothing was recorded. His urine output was 1550 out of suprapubic catheter, and ostomy not recorded. REVIEW OF SYSTEMS: Remainder of review of systems negative for any pertinent positives and negatives. OBJECTIVE: GENERAL: Arnie is quite sleepy this morning. He is a pleasant 89-year-old male. Responds to pain when turning over. VITAL SIGNS: TPR is 97.9, 81, 16. HEART: Regular rate and rhythm. LUNGS: Clear. His peritoneal area packing was removed. There was quite a bit of pink drainage on the ABD and Chux. Packing was removed and was repacked with 1 inch gauze. 4 x 4 placed over the open area and secured with an ABD. EXTREMITIES: Without peripheral edema. ASSESSMENT: Large open pelvic and perineal wounds. PLAN: 1. Will do dressing change in a.m. 2. TPN. Continue same rate and content. 3. Check CBC, CMP, mag, phos, BNP in a.m. 4. We will evaluate p.r.n. or in a.m. Tisha Crocker PA-C /[id number]
--- NOTE | 2021-01-20 20:56 | OR ---
DATE OF PROCEDURE: 01/19/2021 SURGEON: Mohsen Duggan MD PREOPERATIVE DIAGNOSES: 1. Central venous catheter in place with recent fever. 2. Large open perineal and pelvic wound. POSTOPERATIVE DIAGNOSES: 1. Central venous catheter in place with recent fever. 2. Large open perineal and pelvic wound. ANESTHESIA: Local plus IV sedation. INDICATIONS: The patient overnight developed a single elevated temp to 101. He continues to be somewhat more lethargic than he had been previously. White count remains normal, and his labs otherwise look fairly unremarkable today. One suspects that there may be a possible infection involving the central line, and given this, at the time of dressing change today, we will replace the central line, placing the new line probably in the left internal jugular site for continuation of IV access and TPN and removal of the right subclavian vein catheter. We will wait for blood cultures. If those come back positive, then we will begin initiating some treatment based on the cultures obtained. Otherwise, the patient will be undergoing the dressing change under anesthesia once again. Potential risks of the procedures were reviewed with the patient's , and she wishes to proceed. DETAILS OF PROCEDURE: The patient was placed in a lithotomy position in the operating room. IV sedation was administered. Initially, the upper chest and neck areas were prepped and draped. The left internal jugular vein at the central location was then identified by ultrasound. The skin overlying this was anesthetized with 1% lidocaine. The vein was then cannulated and a guidewire manipulated from there into the area of the upper right atrium, and over this, a triple-lumen catheter was positioned without difficulty, and the catheter was flushed with heparinized saline, good blood return had been noted, and then sutured to the skin with some 3-0 Vicryl stitch. A dressing was applied. Subsequent chest x-ray showed no evident complications and good catheter position as noted above. Following this, the previous dressing in the large pelvic and perineal wound was then removed, and the wound was found to be fairly clean, and it was repacked with iodoform gauze, and the procedure then concluded. Mohsen Duggan MD /[id number]
[2021-01-20] MEDS: Melatonin 3 MG Tab PO SCH (22:23)
--- NOTE | 2021-01-20 22:32 | OR ---
DATE OF PROCEDURE: 01/18/2021 SURGEON: Mohsen Duggan MD PREOPERATIVE DIAGNOSIS: Large open perineal and pelvic wound. POSTOPERATIVE DIAGNOSIS: Large open perineal and pelvic wound. PROCEDURE PERFORMED: Dressing change under anesthesia (97960). ANESTHESIA: IV sedation. INDICATION FOR PROCEDURE: The patient has been undergoing daily dressing changes for a large pelvic and perineal wound. Potential risks have been reviewed on an ongoing basis with the patient's and consent obtained. DESCRIPTION OF PROCEDURE: The patient was taken to the operating room and placed in a lithotomy position. The previous packing was taken out. Wound was prepped and draped. There was some scattered necrotic soft tissue, but at this point not enough to proceed with debridement, and given this, the wound was then repacked with iodoform gauze and further dressing applied over that. The patient was taken to the recovery room in satisfactory condition. Mohsen Duggan MD /[id number]
[2021-01-21] MEDS: Linezolid 600 MG in Premix Bag 1 BAG IV SCH ×2 (02:18→14:30)
[2021-01-21] MEDS: Morphine 2 MG/ML SYRINGE IVPUSH PRN (06:29)
[2021-01-21] MEDS: 1: AA 5%/Calcium/D15W/Lytes 1,000 ML with MVI, Adult with Vitamin K 10 ML, Zinc/Copper/M IV SCH ×6 (06:49→18:50)
[2021-01-21] MEDS ORDERED: Central Total Parenteral Nutrition Bag SCH (07:15)
[2021-01-21] MEDS: Pantoprazole 40 MG Tab.CR PO SCH (08:05)
[2021-01-21] MEDS: Lactobacillus Rhamnosus GG (Probiotic) Cap PO SCH (08:05)
[2021-01-21] MEDS: Potassium Chloride 20 MEQ Tab.ER PO SCH (08:06)
[2021-01-21] MEDS: Metoprolol Tartrate 25 MG Tab PO SCH ×2 (08:06→20:04)
[2021-01-21] MEDS: Acetaminophen 500 MG Tab PO SCH ×3 (08:06→20:05)
--- NOTE | 2021-01-21 08:09 | PN ---
DATE OF SERVICE: 01/21/2021 Arnie has been resting comfortably. Vital signs are stable. Labs this morning; hemoglobin 9.6, potassium 4, creatinine 0.7, glucose 118, BNP 1331, total protein 4.8, and albumin 2.3. Arnie has been not responding to verbal commands. He cannot swallow his medications, which were being crushed and put in pudding. He does exhibit pain when staff is changing his position in bed. OBJECTIVE: Arnie is an 89-year-old male. He does open his eyes, but does not respond. VITAL SIGNS: TPR 96.8/93/20, and blood pressure 146/62. HEENT: Mouth is dry. NECK: Supple. HEART: Regular rate and rhythm. LUNGS: Clear. He does not take real deep breaths. ABDOMEN: Negative. Colostomy put out 25 mL and catheter put out 2400 suprapubic. EXTREMITIES: Without peripheral edema. ASSESSMENT: 1. Examination of large perineal and pelvic open wound with: a. Debridement of local soft tissue necrosis involving subcutaneous tissue, fascia, and musculature. b. Dressing change under general anesthesia for large perineal and pelvic open wound with a focal soft tissue necrosis. c. Date of procedure, 01/15/2021, Mohsen Duggan MD. 2. Examination of large open pelvic and perineal wound with debridement of necrotic soft tissue dressing change under general anesthesia. Date of procedure, 01/16/2021, Mohsen Duggan MD. 3. Examination of large open pelvic and perineal wound debridement of areas of soft tissue necrosis involving subcutaneous tissue fashion musculature. Dressing change under general anesthesia. Date, 01/17/2021, Mohsen Duggan MD. 4. Dressing change under anesthesia for large open perineal and pelvic wound, date 01/18/2021, Mohsen Duggan MD. 5. Central vein catheter with recent fever and large open perineal and pelvic wound. Date of procedure, 01/19/2021. PLAN: 1. Dressing change. Previous dressing in the large pelvic and perineal wound was removed and the open area is clean. Clear and pink drainage was on the 1 inch gauze and this was replaced with 1 inch gauze and secured with 4x4s and an ABD. Arnie tolerated the procedure well. He was given IV morphine prior to this. 2. Consult with Stephie Washington MD, hospitalist in regard to medical issues and changing pertinent medications that he is not able to swallow to IV or liquid. 3. Pertinent medications to IV if indicated. Continue same TPN rate and content. 4. Check CBC, CMP, mag, and phos, BNP in a.m. 5. We will check with the nursing staff in regard to ostomy output, 25 mL charted on the and nothing was charted on the or , and 25 on the . If he indeed has not had any ostomy output, we will add an order for bowel stimulation. We will evaluate p.r.n. or in a.m. Tisha Crocker PA-C /[id number]
[2021-01-21] MEDS ORDERED: Acetaminophen 1,000 MG in Premix Bag 1 BAG IV ONE (12:47)
--- NOTE | 2021-01-21 14:48 | PCM.PN ---
- General Info Date of Service: 01/21/21 Subjective Update: Arnie has been slowly declining this week and I was asked to see him again regarding consideration for changes in his medication regimen. He has not been eating or drinking hardly anything. He has not been taking his medications consistently and when he does he often pockets them. He has difficulty swallowing sometimes and other times he simply will not swallow them. He is mildly tachycardic today. He appears to be resting comfortably. He is not able to provide any reliable history because he is nearly obtunded. He had a dressing change today with significant packing in his rectal wound and did not even appear to wake up for it. He did talk to his about the current situation. My concern is that he is wearing out after the large surgery and extensive recovery. I think he is entering the dying process and that even extensive resuscitation would likely not provide significant benefit at this time. She agrees that he has been declining significantly. She would like to continue the current level of cares for 2 more days until family can be here. She thinks a transition to comfort care at that time would be very appropriate. - Patient Data Vitals - Most Recent: Last Vital Signs Temp 36.1 C 01/21/21 14:28 Pulse 110 H 01/21/21 14:28 Resp 20 01/21/21 14:28 BP 127/66 01/21/21 14:28 Pulse Ox 96 01/21/21 14:28 Weight - Most Recent: 103.3 kg I&O - Last 24 Hours: Intake & Output 01/20/21 01/21/21 01/21/21 22:59 06:59 14:59 Intake Total 1089 1454 400 Output Total 450 1300 Balance 639 154 400 Lab Results Last 24 Hours: Laboratory Results - last 24 hr 01/21/21 01/21/21 Range/Units 04:19 04:19 WBC 5.6 (4.5-11.0) K/uL RBC 3.52 L (4.30-5.90) M/uL Hgb 9.6 L (12.0-15.0) g/dL Hct 31.5 L (40.0-54.0) % MCV 90 (80-98) fL MCH 27 (27-31) pg MCHC 31 L (32-36) % Plt Count 116 L (150-400) K/uL Sodium 145 (140-148) mmol/L Potassium 4.0 (3.6-5.2) mmol/L Chloride 110 H (100-108) mmol/L Carbon Dioxide 26 (21-32) mmol/L Anion Gap 13.0 (5.0-14.0) mmol/L BUN 27 H (7-18) mg/dL Creatinine 0.7 L (0.8-1.3) mg/dL Est Cr Clr Drug Dosing 63.45 mL/min Estimated GFR (MDRD) > 60 (>60) Glucose 118 H (74-106) mg/dL Calcium 9.4 (8.5-10.1) mg/dL Phosphorus 2.8 (2.5-4.9) mg/dL Magnesium 1.7 L (1.8-2.4) mg/dL Total Bilirubin 0.7 (0.2-1.0) mg/dL AST 33 (15-37) U/L ALT 39 (12-78) U/L Alkaline Phosphatase 99 (46-116) U/L NT-Pro-B Natriuret Pep 1331 H (5-450) pg/mL Total Protein 4.8 L (6.4-8.2) g/dL Albumin 2.3 L (3.4-5.0) g/dL Globulin 2.5 (2.3-3.5) g/dL Albumin/Globulin Ratio 0.9 L (1.2-2.2) Brock Results Last 24 Hours: Microbiology 01/19/21 12:50 Urine Culture - Final Urine, Clean Catch YEAST 01/18/21 21:57 Aerobic Blood Culture - Preliminary Blood - Arm, Left Anaerobic Blood Culture - Preliminary 01/18/21 21:45 Aerobic Blood Culture - Preliminary Blood - Arm, Left Anaerobic Blood Culture - Preliminary Med Orders - Current: Current Medications Acetaminophen (Acetaminophen 500 Mg Tab) 1,000 mg PO TID [facility] Last Admin: 01/21/21 14:04 Dose: Not Given Documented by: Haloperidol Lactate (Haloperidol Lactate 5 Mg/Ml Sdv) 2.5 mg IVPUSH Q4H PRN PRN Reason: Agitation Heparin Sodium (Porcine) (Heparin Sodium 100 Units/Ml 5 Ml Syringe) 300 units FLUSH ASDIRECTED PRN PRN Reason: IV Use Last Admin: 01/18/21 22:09 Dose: 300 units Documented by: Lactated Ringer's (Ringers, Lactated) 1,000 mls @ 25 mls/hr IV ASDIRECTED [facility] [place] Last Admin: 01/07/21 14:52 Dose: 25 mls/hr Documented by: Fat Emulsion Intravenous (Intralipid 20%) 100 mls @ 8.4 mls/hr IV Q48H [facility] [place] Last Admin: 01/19/21 15:56 Dose: 8.4 mls/hr Documented by: Multivitamins/Minerals 10 ml/Zinc 1 ml/ Amino Ac/Electrol/Dextrose/Calcium 1,011 mls @ 82 mls/hr IV .BY DURATION [facility] Last Admin: 01/21/21 06:49 Dose: 82 mls/hr Documented by: Amino Ac/Electrol/Dextrose/Calcium (Clinimix E 08/14) 1,000 mls @ 82 mls/hr IV .BY DURATION [facility] Last Admin: 01/20/21 18:22 Dose: 82 mls/hr Documented by: Linezolid 600 mg/ Premix 300 mls @ 300 mls/hr IV Q12H [facility] [place] Last Admin: 01/21/21 14:30 Dose: 300 mls/hr Documented by: Ketoconazole (Ketoconazole 2% Crm 30 Gm Tube) 0 gm TOP ASDIRECTED PRN PRN Reason: DRESSING CHANGES Last Admin: 01/16/21 08:35 Dose: 1 applic Documented by: Lactobacillus Rhamnosus (Lactobacillus Rhamnosus Gg (Probiotic) Cap) 2 cap PO DAILY [facility] [place] Last Admin: 01/21/21 08:05 Dose: Not Given Documented by: Melatonin (Melatonin 3 Mg Tab) 9 mg PO BEDTIME [facility] Last Admin: 01/20/21 22:23 Dose: Not Given Documented by: Metoprolol Tartrate (Metoprolol Tartrate 25 Mg Tab) 25 mg PO BID [facility] [place] Last Admin: 01/21/21 08:06 Dose: Not Given Documented by: Morphine Sulfate (Morphine 2 Mg/Ml Syringe) 2 mg IVPUSH Q2H PRN PRN Reason: Pain Last Admin: 01/21/21 06:29 Dose: 2 mg Documented by: Ondansetron HCl (Ondansetron 4 Mg/2 Ml Sdv) 4 mg IVPUSH Q4H PRN PRN Reason: Nausea Last Admin: 01/18/21 09:42 Dose: 4 mg Documented by: Pantoprazole Sodium (Pantoprazole 40 Mg Tab.Cr) 40 mg PO ACBREAKFAST [facility] Last Admin: 01/21/21 08:05 Dose: Not Given Documented by: Potassium Chloride (Potassium Chloride 20 Meq Tab.Er) 40 meq PO DAILY [facility] [place] Last Admin: 01/21/21 08:06 Dose: Not Given Documented by: Propafenone HCl (Propafenone 150 Mg Tab) 225 mg PO TID [facility] [place] Last Admin: 01/21/21 14:04 Dose: Not Given Documented by: Tramadol HCl (Tramadol 50 Mg Tab) 50 mg PO Q6H PRN PRN Reason: Pain Last Admin: 01/17/21 12:40 Dose: 50 mg Documented by: Discontinued Medications Acetaminophen (Acetaminophen 500 Mg Tab) 1,000 mg PO TID [facility] [place] Last Admin: 01/07/21 11:48 Dose: Not Given Documented by: Acetaminophen (Acetaminophen 325 Mg Tab) 650 mg PO ONETIME PRN PRN Reason: HEADACHE,CHILLS Stop: 01/06/21 21:00 Acetaminophen (Acetaminophen 500 Mg Tab) 1,000 mg PO Q8H PRN PRN Reason: PAIN Last Admin: 01/08/21 04:30 Dose: 1,000 mg Documented by: Bupivacaine HCl (Bupivacaine 0.5% 50 Ml Mdv) Confirm Administered Dose 50 ml .ROUTE .STK-MED ONE Stop: 01/07/21 07:03 Bupivacaine HCl (Bupivacaine 0.5% 50 Ml Mdv) Confirm Administered Dose 50 ml .ROUTE .STK-MED ONE Stop: 01/09/21 06:40 Bupivacaine HCl/Epinephrine Bitart (Bupivacaine 0.5%/Epinephrine 1:200,000 50 Ml Mdv) Confirm Administered Dose 50 ml .ROUTE .STK-MED ONE Stop: 01/11/21 07:54 Dexamethasone (Dexamethasone 4 Mg/Ml Sdv) Confirm Administered Dose 4 mg .ROUTE .STK-MED ONE Stop: 01/07/21 06:54 Dexamethasone (Dexamethasone 4 Mg/Ml Sdv) Confirm Administered Dose 4 mg .ROUTE .STK-MED ONE Stop: 01/11/21 06:57 Diphenhydramine HCl (Diphenhydramine 50 Mg/Ml Sdv) 50 mg IVPUSH ONETIME PRN PRN Reason: ALLERGIC RXN Stop: 01/06/21 21:00 Epinephrine HCl (Epinephrine 1 Mg/Ml Sdv) 0.3 mg IM ONETIME PRN PRN Reason: ALLERGIC RXN Stop: 01/06/21 21:00 Famotidine (Famotidine 20 Mg/2 Ml Sdv) 20 mg IV ONETIME PRN PRN Reason: ALLERGIC RXN Stop: 01/06/21 21:00 Fentanyl (Fentanyl 100 Mcg/2 Ml Sdv) Confirm Administered Dose 100 mcg .ROUTE .STK-MED ONE Stop: 01/07/21 06:52 Fentanyl (Fentanyl 100 Mcg/2 Ml Sdv) Confirm Administered Dose 200 mcg .ROUTE .STK-MED ONE Stop: 01/09/21 06:46 Fentanyl (Fentanyl 100 Mcg/2 Ml Sdv) 100 mcg .ROUTE .STK-MED ONE Stop: 01/09/21 07:01 Fentanyl (Fentanyl 100 Mcg/2 Ml Sdv) Confirm Administered Dose 100 mcg .ROUTE .STK-MED ONE Stop: 01/10/21 06:30 Fentanyl (Fentanyl 100 Mcg/2 Ml Sdv) Confirm Administered Dose 100 mcg .ROUTE .STK-MED ONE Stop: 01/11/21 06:57 Fentanyl (Fentanyl 100 Mcg/2 Ml Sdv) Confirm Administered Dose 100 mcg .ROUTE .STK-MED ONE Stop: 01/11/21 07:12 Fentanyl (Fentanyl 100 Mcg/2 Ml Sdv) Confirm Administered Dose 100 mcg .ROUTE .STK-MED ONE Stop: 01/13/21 07:13 Fentanyl (Fentanyl 100 Mcg/2 Ml Sdv) Confirm Administered Dose 100 mcg .ROUTE .STK-MED ONE Stop: 01/14/21 07:06 Fentanyl (Fentanyl 100 Mcg/2 Ml Sdv) Confirm Administered Dose 100 mcg .ROUTE .STK-MED ONE Stop: 01/15/21 07:26 Fentanyl (Fentanyl 100 Mcg/2 Ml Sdv) Confirm Administered Dose 100 mcg .ROUTE .STK-MED ONE Stop: 01/16/21 07:22 Fentanyl (Fentanyl 100 Mcg/2 Ml Sdv) Confirm Administered Dose 100 mcg .ROUTE .STK-MED ONE Stop: 01/18/21 07:11 Furosemide (Furosemide 20 Mg/2 Ml Vial) 20 mg IVPUSH ONETIME ONE Stop: 01/07/21 14:01 Last Admin: 01/07/21 13:16 Dose: 20 mg Documented by: Furosemide (Furosemide 20 Mg/2 Ml Vial) 20 mg IVPUSH Q6H [facility] Stop: 01/08/21 15:01 Last Admin: 01/08/21 14:39 Dose: 20 mg Documented by: Furosemide (Furosemide 20 Mg/2 Ml Vial) 20 mg IVPUSH Q10H [facility] Stop: 01/09/21 20:01 Last Admin: 01/09/21 19:42 Dose: 20 mg Documented by: Furosemide (Furosemide 20 Mg/2 Ml Vial) 20 mg IV ONETIME ONE Stop: 01/12/21 14:01 Last Admin: 01/12/21 13:20 Dose: 20 mg Documented by: Furosemide (Furosemide 20 Mg/2 Ml Vial) 20 mg IVPUSH ONETIME ONE Stop: 01/13/21 09:16 Last Admin: 01/13/21 16:40 Dose: 20 mg Documented by: Furosemide (Furosemide 20 Mg/2 Ml Vial) 20 mg IVPUSH ONETIME ONE Stop: 01/14/21 09:31 Last Admin: 01/14/21 09:28 Dose: 20 mg Documented by: Furosemide (Furosemide 20 Mg/2 Ml Vial) 20 mg IVPUSH ONETIME ONE Stop: 01/16/21 11:01 Last Admin: 01/16/21 10:28 Dose: 20 mg Documented by: Furosemide (Furosemide 20 Mg/2 Ml Vial) 20 mg IVPUSH ONETIME ONE Stop: 01/16/21 16:01 Last Admin: 01/16/21 15:44 Dose: 20 mg Documented by: Glycopyrrolate (Glycopyrrolate 0.2 Mg/Ml 5 Ml Mdv) Confirm Administered Dose 1 mg .ROUTE .STK-MED ONE Stop: 01/07/21 06:54 Glycopyrrolate (Glycopyrrolate 0.2 Mg/Ml 5 Ml Mdv) Confirm Administered Dose 1 mg .ROUTE .STK-MED ONE Stop: 01/11/21 06:57 Heparin Sodium (Porcine) (Heparin Sodium 100 Units/Ml 5 Ml Syringe) Confirm Administered Dose 500 units .ROUTE .STK-MED ONE Stop: 01/07/21 07:03 Heparin Sodium (Porcine) (Heparin Sodium 100 Units/Ml 5 Ml Syringe) Confirm Administered Dose 1,000 units .ROUTE .STK-MED ONE Stop: 01/19/21 06:26 Last Admin: 01/19/21 07:00 Dose: 1,000 units Documented by: Lactated Ringer's (Ringers, Lactated) 1,000 mls @ 100 mls/hr IV ASDIRECTED [facility] Lactated Ringer's (Ringers, Lactated) 1,000 mls @ 40 mls/hr IV ASDIRECTED [facility] Potassium Phosphate 15 mmol/ (Premix) 250 mls @ 85 mls/hr IV Q3H [facility] Stop: 01/06/21 13:57 Last Admin: 01/06/21 11:20 Dose: 85 mls/hr Documented by: Magnesium Sulfate 2 gm/ Premix 50 mls @ 25 mls/hr IV Q6H [facility] Stop: 01/06/21 17:59 Last Admin: 01/06/21 09:15 Dose: 25 mls/hr Documented by: Magnesium Sulfate 2 gm/ Premix 50 mls @ 25 mls/hr IV Q6H [facility] Stop: 01/06/21 15:59 Last Admin: 01/06/21 14:23 Dose: 25 mls/hr Documented by: Albumin Human (Albumin 25%) 25 gm in 100 mls @ 25 mls/hr IV Q24H [facility] Stop: 01/09/21 19:59 Last Admin: 01/09/21 16:06 Dose: 25 mls/hr Documented by: Ceftriaxone Sodium 2 gm/ (Sodium Chloride) 50 mls @ 100 mls/hr IV Q24H [facility] [place] Stop: 01/07/21 16:00 Last Admin: 01/07/21 13:51 Dose: 100 mls/hr Documented by: Acetaminophen 1,000 mg/ Premix 100 mls @ 400 mls/hr IV Q8H PRN PRN Reason: Pain Stop: 01/07/21 19:14 Last Admin: 01/07/21 04:55 Dose: 400 mls/hr Documented by: Multivitamins/Minerals 10 ml/Zinc 1 ml/ Amino Ac/Electrol/Dextrose/Calcium 1,011 mls @ 82 mls/hr IV .BY DURATION [facility] Stop: 01/11/21 15:30 Last Admin: 01/10/21 17:54 Dose: 82 mls/hr Documented by: Amino Ac/Electrol/Dextrose/Calcium (Clinimix E 08/14) 1,000 mls @ 82 mls/hr IV .BY DURATION [facility] Stop: 01/11/21 15:30 Last Admin: 01/11/21 07:02 Dose: 82 mls/hr Documented by: Piperacillin/Tazobactam/ (Dextrose 3.375 gm/ Premix) 50 mls @ 100 mls/hr IV Q6H [facility] [place] Last Admin: 01/11/21 10:28 Dose: Not Given Documented by: Doxycycline Hyclate 100 mg/ (Sodium Chloride) 100 mls @ 100 mls/hr IV Q12H [facility] [place] Last Admin: 01/15/21 10:22 Dose: 100 mls/hr Documented by: Potassium Phosphate 22.5 mmole (/ Sodium Chloride) 107.5 mls @ 30 mls/hr IV Q4H [facility] [place] Stop: 01/08/21 17:34 Last Admin: 01/08/21 15:41 Dose: 30 mls/hr Documented by: Sodium Chloride (Normal Saline) Confirm Administered Dose 10 mls @ as directed .ROUTE .STK-MED ONE Stop: 01/09/21 06:49 Potassium Phosphate 30 mmole/ (Sodium Chloride) 110 mls @ 20 mls/hr IV ONETIME ONE Stop: 01/09/21 15:29 Last Admin: 01/09/21 11:16 Dose: 20 mls/hr Documented by: Magnesium Sulfate 2 gm/ Premix 50 mls @ 25 mls/hr IV Q6H [facility] [place] Stop: 01/11/21 05:59 Last Admin: 01/11/21 04:46 Dose: 25 mls/hr Documented by: Potassium Phosphate 30 mmole/ (Sodium Chloride) 110 mls @ 20 mls/hr IV ONETIME ONE Stop: 01/10/21 16:29 Last Admin: 01/10/21 11:28 Dose: 20 mls/hr Documented by: Multivitamins/Minerals 10 ml/Zinc 1 ml/ Amino Ac/Electrol/Dextrose/Calcium 1,011 mls @ 82 mls/hr IV .BY DURATION [facility] [place] Stop: 01/13/21 19:00 Last Admin: 01/12/21 21:17 Dose: 82 mls/hr Documented by: Amino Ac/Electrol/Dextrose/Calcium (Clinimix E 15) 1,000 mls @ 82 mls/hr IV .BY DURATION [facility] Stop: 01/13/21 19:00 Last Admin: 01/13/21 09:56 Dose: 82 mls/hr Documented by: Albumin Human (Albumin 25%) 25 gm in 100 mls @ 25 mls/hr IV Q24H [facility] [place] Stop: 01/15/21 16:59 Last Admin: 01/15/21 13:19 Dose: 25 mls/hr Documented by: Multivitamins/Minerals 10 ml/Zinc 1 ml/ Amino Ac/Electrol/Dextrose/Calcium 1,011 mls @ 82 mls/hr IV .BY DURATION [facility] Stop: 01/15/21 22:30 Last Admin: 01/15/21 00:09 Dose: 82 mls/hr Documented by: Amino Ac/Electrol/Dextrose/Calcium (Clinimix E 5/15) 1,000 mls @ 82 mls/hr IV .BY DURATION [facility] Stop: 01/15/21 22:30 Last Admin: 01/15/21 13:16 Dose: 82 mls/hr Documented by: Multivitamins/Minerals 10 ml/Zinc 1 ml/ Amino Ac/Electrol/Dextrose/Calcium 1,011 mls @ 82 mls/hr IV .BY DURATION [facility] Stop: 01/19/21 15:00 Last Admin: 01/19/21 05:38 Dose: 82 mls/hr Documented by: Amino Ac/Electrol/Dextrose/Calcium (Clinimix E 5/15) 1,000 mls @ 82 mls/hr IV .BY DURATION [facility] Stop: 01/19/21 15:00 Last Admin: 01/18/21 16:47 Dose: 82 mls/hr Documented by: Magnesium Sulfate 2 gm/ Premix 50 mls @ 25 mls/hr IV Q6HR [facility] Stop: 01/18/21 05:59 Last Admin: 01/18/21 04:36 Dose: 25 mls/hr Documented by: Acetaminophen 1,000 mg/ Premix 100 mls @ 400 mls/hr IV NOW ONE Stop: 01/18/21 21:36 Last Admin: 01/18/21 21:42 Dose: 400 mls/hr Documented by: Acetaminophen 1,000 mg/ Premix 100 mls @ 400 mls/hr IV NOW ONE Stop: 01/21/21 13:01 Last Admin: 01/21/21 13:04 Dose: 400 mls/hr Documented by: Lidocaine HCl (Lidocaine 2% Jelly 10 Ml Urojet) Confirm Administered Dose 10 ml .ROUTE .STK-MED ONE Stop: 01/05/21 18:51 Last Admin: 01/05/21 19:33 Dose: Not Given Documented by: Lidocaine/Epinephrine (Lidocaine 1% With Epinephrine 1:100,000 50 Ml Mdv) Confirm Administered Dose 50 ml .ROUTE .STK-MED ONE Stop: 01/07/21 07:03 Lidocaine/Epinephrine (Lidocaine 1% With Epinephrine 1:100,000 50 Ml Mdv) Confirm Administered Dose 50 ml .ROUTE .STK-MED ONE Stop: 01/09/21 06:40 Meropenem (Meropenem 500 Mg Sdv) Confirm Administered Dose 500 mg .ROUTE .STK- MED ONE Stop: 01/07/21 08:33 Meropenem (Meropenem 500 Mg Sdv) Confirm Administered Dose 500 mg .ROUTE .STK- MED ONE Stop: 01/09/21 06:40 Last Admin: 01/09/21 08:00 Dose: 500 mg Documented by: Meropenem (Meropenem 500 Mg Sdv) Confirm Administered Dose 500 mg .ROUTE .STK- MED ONE Stop: 01/10/21 06:19 Last Admin: 01/10/21 07:31 Dose: 500 mg Documented by: Meropenem (Meropenem 500 Mg Sdv) Confirm Administered Dose 500 mg .ROUTE .STK- MED ONE Stop: 01/11/21 06:34 Meropenem (Meropenem 500 Mg Sdv) Confirm Administered Dose 500 mg .ROUTE .STK- MED ONE Stop: 01/12/21 06:36 Meropenem (Meropenem 500 Mg Sdv) Confirm Administered Dose 500 mg .ROUTE .STK- MED ONE Stop: 01/13/21 06:45 Last Admin: 01/13/21 07:30 Dose: 500 mg Documented by: Meropenem (Meropenem 500 Mg Sdv) Confirm Administered Dose 500 mg .ROUTE .STK- MED ONE Stop: 01/14/21 07:13 Meropenem (Meropenem 500 Mg Sdv) Confirm Administered Dose 500 mg .ROUTE .STK- MED ONE Stop: 01/15/21 06:38 Last Admin: 01/15/21 08:08 Dose: 500 mg Documented by: Meropenem (Meropenem 500 Mg Sdv) Confirm Administered Dose 500 mg .ROUTE .STK- MED ONE Stop: 01/17/21 06:46 Methylprednisolone Sodium Succinate (Methylprednisolone Sodium Succinate 125 Mg/2 Ml Sdv) 125 mg IVPUSH ONETIME PRN PRN Reason: ALLERGIC RXN Stop: 01/06/21 21:00 Metoprolol Tartrate (Metoprolol Tartrate 5 Mg/5 Ml Sdv) 5 mg IVPUSH Q6H [facility] Last Admin: 01/08/21 11:23 Dose: Not Given Documented by: Neostigmine Methylsulfate (Neostigmine Methylsulfate 1 Mg/Ml 5 Ml Syringe) Confirm Administered Dose 5 mg .ROUTE .STK-MED ONE Stop: 01/07/21 06:54 Neostigmine Methylsulfate (Neostigmine Methylsulfate 1 Mg/Ml 5 Ml Syringe) Confirm Administered Dose 5 mg .ROUTE .STK-MED ONE Stop: 01/11/21 06:57 Non-Formulary Medication (Casirivimab 120 Mg/Ml Vial) 600 mg SUBCUT ONETIME ONE Stop: 01/06/21 13:01 Last Admin: 01/06/21 12:57 Dose: 600 mg Documented by: Non-Formulary Medication (Imdevimab 120 Mg/Ml Vial) 600 mg SUBCUT ONETIME ONE Stop: 01/06/21 13:01 Last Admin: 01/06/21 12:57 Dose: 600 mg Documented by: Non-Formulary Medication (Central Total Parenteral Nutrition Bag) 0 ml IV ONETIME ONE Stop: 01/12/21 11:31 Last Admin: 01/12/21 13:10 Dose: Not Given Documented by: Non-Formulary Medication (Central Total Parenteral Nutrition Bag) 1,000 ml .XX .Continue Order [facility] Stop: 01/20/21 09:00 Non-Formulary Medication (Central Total Parenteral Nutrition Bag) 1,000 ml .XX .Continue Order [facility] Stop: 01/21/21 10:00 Ondansetron HCl (Ondansetron 4 Mg/2 Ml Sdv) Confirm Administered Dose 4 mg .ROUTE .STK-MED ONE Stop: 01/07/21 06:54 Ondansetron HCl (Ondansetron 4 Mg/2 Ml Sdv) Confirm Administered Dose 4 mg .ROU TE .STK-MED ONE Stop: 01/11/21 06:57 Phenylephrine HCl (Phenylephrine 1% 10 Mg/Ml Sdv) Confirm Administered Dose 10 mg .ROUTE .STK-MED ONE Stop: 01/09/21 06:48 Piperacillin Sod/Tazobactam Sod (Piperacillin/Tazobactam 3.375 Gm Vial) Confirm Administered Dose 3.375 gm .ROUTE .STK-MED ONE Stop: 01/07/21 08:41 Propafenone HCl (Propafenone 150 Mg Tab) 225 mg PO BID [facility] Last Admin: 01/05/21 21:18 Dose: 225 mg Documented by: Propofol (Propofol 200 Mg/20 Ml Sdv) Confirm Administered Dose 200 mg .ROUTE .STK-MED ONE Stop: 01/07/21 06:54 Propofol (Propofol 200 Mg/20 Ml Sdv) Confirm Administered Dose 400 mg .ROUTE .STK-MED ONE Stop: 01/09/21 06:47 Propofol (Propofol 200 Mg/20 Ml Sdv) 200 mg .ROUTE .STK-MED ONE Stop: 01/09/21 07:01 Propofol (Propofol 200 Mg/20 Ml Sdv) Confirm Administered Dose 200 mg .ROUTE .STK-MED ONE Stop: 01/10/21 06:30 Propofol (Propofol 200 Mg/20 Ml Sdv) Confirm Administered Dose 600 mg .ROUTE .STK-MED ONE Stop: 01/11/21 06:57 Propofol (Propofol 200 Mg/20 Ml Sdv) Confirm Administered Dose 400 mg .ROUTE .STK-MED ONE Stop: 01/13/21 07:06 Propofol (Propofol 200 Mg/20 Ml Sdv) Confirm Administered Dose 200 mg .ROUTE .STK-MED ONE Stop: 01/14/21 07:05 Propofol (Propofol 200 Mg/20 Ml Sdv) Confirm Administered Dose 200 mg .ROUTE .STK-MED ONE Stop: 01/15/21 07:26 Propofol (Propofol 200 Mg/20 Ml Sdv) Confirm Administered Dose 200 mg .ROUTE .STK-MED ONE Stop: 01/16/21 07:22 Propofol (Propofol 200 Mg/20 Ml Sdv) Confirm Administered Dose 200 mg .ROUTE .STK-MED ONE Stop: 01/17/21 06:59 Propofol (Propofol 200 Mg/20 Ml Sdv) Confirm Administered Dose 200 mg .ROUTE .STK-MED ONE Stop: 01/17/21 07:03 Propofol (Propofol 200 Mg/20 Ml Sdv) Confirm Administered Dose 200 mg .ROUTE .STK-MED ONE Stop: 01/18/21 07:10 Propofol (Propofol 200 Mg/20 Ml Sdv) 200 mg .ROUTE .STK-MED ONE Stop: 01/12/21 07:01 Propofol (Propofol 200 Mg/20 Ml Sdv) Confirm Administered Dose 400 mg .ROUTE .STK-MED ONE Stop: 01/19/21 06:52 Rocuronium Fulda (Rocuronium 50 Mg/5 Ml Vial) Confirm Administered Dose 50 mg .ROUTE .STK-MED ONE Stop: 01/07/21 06:54 Rocuronium Fulda (Rocuronium 50 Mg/5 Ml Vial) Confirm Administered Dose 50 mg .ROUTE .STK-MED ONE Stop: 01/11/21 06:57 Rocuronium Fulda (Rocuronium 50 Mg/5 Ml Vial) 50 mg IV .STK-MED ONE Stop: 01/10/21 07:01 Succinylcholine Chloride (Succinylcholine 200 Mg/10 Ml Mdv) Confirm Administered Dose 200 mg .ROUTE .STK-MED ONE Stop: 01/11/21 06:57 - Exam Quality Assessment: No: Supplemental Oxygen Central Line Total Time: 2Days 0Hours Urinary Catheter Total Time: 10Days 0Hours General: No Acute Distress, Obtunded. No: Alert, Cooperative HEENT: Pupils Equal. No: Mucous Membr. Moist/[place] (dry) Lungs: Normal Respiratory Effort, Rhonchi (moderate upper resp ) Cardiovascular: Irregular Rhythm, Tachycardia GI/Abdominal Exam: Normal Bowel Sounds, Soft, No Distention Extremities: No Pedal Edema. No: Increased Warmth Skin: Warm, Dry Psy/Mental Status: No: Alert, Agitated - Patient Data Lab Results Last 24 hrs: Laboratory Results - last 24 hr 01/21/21 01/21/21 Range/Units 04:19 04:19 WBC 5.6 (4.5-11.0) K/uL RBC 3.52 L (4.30-5.90) M/uL Hgb 9.6 L (12.0-15.0) g/dL Hct 31.5 L (40.0-54.0) % MCV 90 (80-98) fL MCH 27 (27-31) pg MCHC 31 L (32-36) % Plt Count 116 L (150-400) K/uL Sodium 145 (140-148) mmol/L Potassium 4.0 (3.6-5.2) mmol/L Chloride 110 H (100-108) mmol/L Carbon Dioxide 26 (21-32) mmol/L Anion Gap 13.0 (5.0-14.0) mmol/L BUN 27 H (7-18) mg/dL Creatinine 0.7 L (0.8-1.3) mg/dL Est Cr Clr Drug Dosing 63.45 mL/min Estimated GFR (MDRD) > 60 (>60) Glucose 118 H (74-106) mg/dL Calcium 9.4 (8.5-10.1) mg/dL Phosphorus 2.8 (2.5-4.9) mg/dL Magnesium 1.7 L (1.8-2.4) mg/dL Total Bilirubin 0.7 (0.2-1.0) mg/dL AST 33 (15-37) U/L ALT 39 (12-78) U/L Alkaline Phosphatase 99 (46-116) U/L NT-Pro-B Natriuret Pep 1331 H (5-450) pg/mL Total Protein 4.8 L (6.4-8.2) g/dL Albumin 2.3 L (3.4-5.0) g/dL Globulin 2.5 (2.3-3.5) g/dL Albumin/Globulin Ratio 0.9 L (1.2-2.2) Result Diagrams: 01/21/21 04:19 01/21/21 04:19 Brock Results Last 24 hrs: Microbiology 01/19/21 12:50 Urine Culture - Final Urine, Clean Catch YEAST 01/18/21 21:57 Aerobic Blood Culture - Preliminary Blood - Arm, Left Anaerobic Blood Culture - Preliminary 01/18/21 21:45 Aerobic Blood Culture - Preliminary Blood - Arm, Left Anaerobic Blood Culture - Preliminary Sepsis Event Note - Evaluation Sepsis Screening Result: No Definite Risk - Focused Exam Vital Signs: Vital Signs Temp Pulse Resp BP Pulse Ox 01/21/21 14:28 36.1 C 110 H 20 127/66 96 01/21/21 12:50 37.8 C 01/21/21 10:58 36.1 C 69 18 155/77 H 95 01/21/21 07:29 36.1 C 106 H 18 122/57 L 95 - Problem List Review Problem List Initiated/Reviewed/Updated: Yes - Plan Plan:: ASSESSMENT AND PLAN- Rectal cancer status post APR-extensive surgery with complicated postoperative course. Postoperative course further complicated by COVID-19 infection. Patient had been a number okay but seems to have been declining over the past week or so. He is not eating and minimally if at all able to participate with cares. He is nearly obtunded at this time. I think he is entering the dying process. My concerns were discussed with his . She would like to continue the current level of care is with the hope that he can survive until family gets here on Sunday. She is agreeable to transition to a DO NOT RESUSCITATE and DO NOT INTUBATE status. She is agreeable that if his condition declines that we would not perform further invasive or painful procedures or interventions. -Continue current support with TPN -Symptomatic management of pain and nausea -Change CODE STATUS to DO NOT RESUSCITATE and DO NOT INTUBATE -Anticipate transition to comfort cares on Sunday Chronic atrial fibrillation-heart rate has been suboptimally controlled since he has not been able to take his oral medications. -Continue meds if able -Not planning to transition to IV medications if he is not able to take oral medications with upcoming transition to comfort cares Antonio Washington MD
[2021-01-21] MEDS: Fat Emulsion 100 ML IV SCH (15:29)
[2021-01-21] MEDS: Melatonin 3 MG Tab PO SCH (20:04)
[2021-01-22] MEDS: Linezolid 600 MG in Premix Bag 1 BAG IV SCH ×2 (02:23→14:33)
[2021-01-22] MEDS ORDERED: Central Total Parenteral Nutrition Bag SCH (07:15)
--- NOTE | 2021-01-22 07:37 | PN ---
DATE OF SERVICE: 01/22/2021 SUBJECTIVE: Arnie's vital signs have been stable. Oral intake 0. He is on TPN. Ostomy, small amount of liquid stool and suprapubic catheter 2200 output. He remains to be about the same. Quite sleepy. Does respond when rolling over due to pain. Hemoglobin is 9.5. Potassium 3.8. BNP is 1259. OBJECTIVE: GENERAL: Arnie Infante is an 89-year-old male who responds to pain. Otherwise, he is not alert. VITAL SIGNS: Have not been done yet this morning. Last recorded 01/21/2021 at 2254 hours; 97.1, 83, 20. Blood pressure 138/65. SKIN: Flushed. HEART: Regular rate and rhythm. LUNGS: Reveal decreased breath sounds. He does have rhonchi with wet-sounding cough. ABDOMEN: Colostomy intact. He has some xander in the suprapubic area and these will be left in because the skin does not look like it would hold without the xander. Dressing changed. Large perineal and pelvic wounds. Tolerated procedure well. This was done at bedside. Open area is clean and pink. 1-inch gauze was re-placed, secured with 4x4s and ABD. ASSESSMENT: No change. PLAN: Continue same TPN rate and content. CBC, CMP, mag, phos, and BNP in a.m. We will evaluate p.r.n. or in a.m. Tisha Crocker PA-C /[id number]
[2021-01-22] MEDS: 1: AA 5%/Calcium/D15W/Lytes 1,000 ML with MVI, Adult with Vitamin K 10 ML, Zinc/Copper/M IV SCH ×3 (07:50)
[2021-01-22] MEDS: Potassium Chloride 20 MEQ Tab.ER PO SCH (08:31)
[2021-01-22] MEDS: Pantoprazole 40 MG Tab.CR PO SCH (08:31)
[2021-01-22] MEDS: Lactobacillus Rhamnosus GG (Probiotic) Cap PO SCH (08:31)
[2021-01-22] MEDS: Acetaminophen 500 MG Tab PO SCH ×2 (08:32→14:32)
[2021-01-22] MEDS: Metoprolol Tartrate 25 MG Tab PO SCH (08:32)
[2021-01-22] MEDS ORDERED: Bisacodyl 10 MG Supp RECTAL ONE ×2 (09:37→11:30)
--- NOTE | 2021-01-22 11:00 | PCM.PN ---
- General Info Date of Service: 01/22/21 Subjective Update: No acute events overnight. Patient remains very lethargic and is essentially obtunded though he is able to look at me when I am talking to him this morning. He was not able to answer any questions. He does mumble a little bit. His family including , sister and nephew were able to make it today. His contacted the hims clerk and he came in yesterday afternoon and performed last rights. Family is all in agreement that he is not going to recover from all of the recent events. They all agree that transition to comfort cares is an appropriate plan at this time. We were not expecting them until tomorrow but they did make it today and we will be transitioning to comfort cares this afternoon. - Patient Data Vitals - Most Recent: Last Vital Signs Temp 36.3 C 01/22/21 10:39 Pulse 92 01/22/21 10:39 Resp 18 01/22/21 10:39 BP 152/52 H 01/22/21 10:39 Pulse Ox 95 01/22/21 10:39 Weight - Most Recent: 102.9 kg I&O - Last 24 Hours: Intake & Output 01/21/21 01/22/21 01/22/21 22:59 06:59 14:59 Intake Total 950 1385 Output Total 1000 1200 550 Balance -50 185 -550 Lab Results Last 24 Hours: Laboratory Results - last 24 hr 01/22/21 01/22/21 Range/Units 04:10 04:10 WBC 5.1 (4.5-11.0) K/uL RBC 3.46 L (4.30-5.90) M/uL Hgb 9.5 L (12.0-15.0) g/dL Hct 31.1 L (40.0-54.0) % MCV 90 (80-98) fL MCH 28 (27-31) pg MCHC 31 L (32-36) % Plt Count 124 L (150-400) K/uL Sodium 142 (140-148) mmol/L Potassium 3.8 (3.6-5.2) mmol/L Chloride 109 H (100-108) mmol/L Carbon Dioxide 25 (21-32) mmol/L Anion Gap 11.8 (5.0-14.0) mmol/L BUN 24 H (7-18) mg/dL Creatinine 0.6 L (0.8-1.3) mg/dL Est Cr Clr Drug Dosing 74.03 mL/min Estimated GFR (MDRD) > 60 (>60) Glucose 116 H (74-106) mg/dL Calcium 9.2 (8.5-10.1) mg/dL Phosphorus 2.7 (2.5-4.9) mg/dL Total Bilirubin 0.7 (0.2-1.0) mg/dL AST 38 H (15-37) U/L ALT 52 (12-78) U/L Alkaline Phosphatase 120 H (46-116) U/L NT-Pro-B Natriuret Pep 1259 H (5-450) pg/mL Total Protein 4.8 L (6.4-8.2) g/dL Albumin 2.2 L (3.4-5.0) g/dL Globulin 2.6 (2.3-3.5) g/dL Albumin/Globulin Ratio 0.9 L (1.2-2.2) Brock Results Last 24 Hours: Microbiology 01/18/21 21:45 Aerobic Blood Culture - Final Blood - Arm, Left Enterococcus Faecalis Anaerobic Blood Culture - Final Enterococcus Faecalis 01/18/21 21:57 Aerobic Blood Culture - Final Blood - Arm, Left Enterococcus Faecalis Anaerobic Blood Culture - Final Enterococcus Faecalis 01/19/21 12:50 Urine Culture - Final Urine, Clean Catch YEAST Med Orders - Current: Current Medications Acetaminophen (Acetaminophen 500 Mg Tab) 1,000 mg PO TID [facility] Last Admin: 01/22/21 08:32 Dose: Not Given Documented by: Haloperidol Lactate (Haloperidol Lactate 5 Mg/Ml Sdv) 2.5 mg IVPUSH Q4H PRN PRN Reason: Agitation Heparin Sodium (Porcine) (Heparin Sodium 100 Units/Ml 5 Ml Syringe) 300 units FLUSH ASDIRECTED PRN PRN Reason: IV Use Last Admin: 01/18/21 22:09 Dose: 300 units Documented by: Lactated Ringer's (Ringers, Lactated) 1,000 mls @ 25 mls/hr IV ASDIRECTED [facility] Last Admin: 01/07/21 14:52 Dose: 25 mls/hr Documented by: Fat Emulsion Intravenous (Intralipid 20%) 100 mls @ 8.4 mls/hr IV Q48H [facility] Last Admin: 01/21/21 15:29 Dose: 8.4 mls/hr Documented by: Multivitamins/Minerals 10 ml/Zinc 1 ml/ Amino Ac/Electrol/Dextrose/Calcium 1,011 mls @ 82 mls/hr IV .BY DURATION [facility] Last Admin: 01/22/21 07:50 Dose: 82 mls/hr Documented by: Amino Ac/Electrol/Dextrose/Calcium (Clinimix E 5/15) 1,000 mls @ 82 mls/hr IV .BY DURATION [facility] Last Admin: 01/21/21 18:50 Dose: 82 mls/hr Documented by: Linezolid 600 mg/ Premix 300 mls @ 300 mls/hr IV Q12H [facility] Last Admin: 01/22/21 02:23 Dose: 300 mls/hr Documented by: Ketoconazole (Ketoconazole 2% Crm 30 Gm Tube) 0 gm TOP ASDIRECTED PRN PRN Reason: DRESSING CHANGES Last Admin: 01/16/21 08:35 Dose: 1 applic Documented by: Lactobacillus Rhamnosus (Lactobacillus Rhamnosus Gg (Probiotic) Cap) 2 cap PO DAILY [facility] Last Admin: 01/22/21 08:31 Dose: Not Given Documented by: Melatonin (Melatonin 3 Mg Tab) 9 mg PO BEDTIME [facility] Last Admin: 01/21/21 20:04 Dose: Not Given Documented by: Metoprolol Tartrate (Metoprolol Tartrate 25 Mg Tab) 25 mg PO BID [facility] Last Admin: 01/22/21 08:32 Dose: Not Given Documented by: Morphine Sulfate (Morphine 2 Mg/Ml Syringe) 2 mg IVPUSH Q2H PRN PRN Reason: Pain Last Admin: 01/21/21 06:29 Dose: 2 mg Documented by: Ondansetron HCl (Ondansetron 4 Mg/2 Ml Sdv) 4 mg IVPUSH Q4H PRN PRN Reason: Nausea Last Admin: 01/18/21 09:42 Dose: 4 mg Documented by: Pantoprazole Sodium (Pantoprazole 40 Mg Tab.Cr) 40 mg PO ACBREAKFAST [facility] Last Admin: 01/22/21 08:31 Dose: Not Given Documented by: Potassium Chloride (Potassium Chloride 20 Meq Tab.Er) 40 meq PO DAILY [facility] Last Admin: 01/22/21 08:31 Dose: Not Given Documented by: Propafenone HCl (Propafenone 150 Mg Tab) 225 mg PO TID [facility] Last Admin: 01/22/21 08:32 Dose: Not Given Documented by: Tramadol HCl (Tramadol 50 Mg Tab) 50 mg PO Q6H PRN PRN Reason: Pain Last Admin: 01/17/21 12:40 Dose: 50 mg Documented by: Discontinued Medications Acetaminophen (Acetaminophen 500 Mg Tab) 1,000 mg PO TID [facility] Last Admin: 01/07/21 11:48 Dose: Not Given Documented by: Acetaminophen (Acetaminophen 325 Mg Tab) 650 mg PO ONETIME PRN PRN Reason: HEADACHE,CHILLS Stop: 01/06/21 21:00 Acetaminophen (Acetaminophen 500 Mg Tab) 1,000 mg PO Q8H PRN PRN Reason: PAIN Last Admin: 01/08/21 04:30 Dose: 1,000 mg Documented by: Bisacodyl (Bisacodyl 10 Mg Supp) 10 mg RECTAL ONETIME ONE Stop: 01/22/21 09:38 Bupivacaine HCl (Bupivacaine 0.5% 50 Ml Mdv) Confirm Administered Dose 50 ml .ROUTE .STK-MED ONE Stop: 01/07/21 07:03 Bupivacaine HCl (Bupivacaine 0.5% 50 Ml Mdv) Confirm Administered Dose 50 ml .ROUTE .STK-MED ONE Stop: 01/09/21 06:40 Bupivacaine HCl/Epinephrine Bitart (Bupivacaine 0.5%/Epinephrine 1:200,000 50 Ml Mdv) Confirm Administered Dose 50 ml .ROUTE .STK-MED ONE Stop: 01/11/21 07:54 Dexamethasone (Dexamethasone 4 Mg/Ml Sdv) Confirm Administered Dose 4 mg .ROUTE .STK-MED ONE Stop: 01/07/21 06:54 Dexamethasone (Dexamethasone 4 Mg/Ml Sdv) Confirm Administered Dose 4 mg .ROUTE .STK-MED ONE Stop: 01/11/21 06:57 Diphenhydramine HCl (Diphenhydramine 50 Mg/Ml Sdv) 50 mg IVPUSH ONETIME PRN PRN Reason: ALLERGIC RXN Stop: 01/06/21 21:00 Epinephrine HCl (Epinephrine 1 Mg/Ml Sdv) 0.3 mg IM ONETIME PRN PRN Reason: ALLERGIC RXN Stop: 01/06/21 21:00 Famotidine (Famotidine 20 Mg/2 Ml Sdv) 20 mg IV ONETIME PRN PRN Reason: ALLERGIC RXN Stop: 01/06/21 21:00 Fentanyl (Fentanyl 100 Mcg/2 Ml Sdv) Confirm Administered Dose 100 mcg .ROUTE .STK-MED ONE Stop: 01/07/21 06:52 Fentanyl (Fentanyl 100 Mcg/2 Ml Sdv) Confirm Administered Dose 200 mcg .ROUTE .STK-MED ONE Stop: 01/09/21 06:46 Fentanyl (Fentanyl 100 Mcg/2 Ml Sdv) 100 mcg .ROUTE .STK-MED ONE Stop: 01/09/21 07:01 Fentanyl (Fentanyl 100 Mcg/2 Ml Sdv) Confirm Administered Dose 100 mcg .ROUTE .STK-MED ONE Stop: 01/10/21 06:30 Fentanyl (Fentanyl 100 Mcg/2 Ml Sdv) Confirm Administered Dose 100 mcg .ROUTE .STK-MED ONE Stop: 01/11/21 06:57 Fentanyl (Fentanyl 100 Mcg/2 Ml Sdv) Confirm Administered Dose 100 mcg .ROUTE .STK-MED ONE Stop: 01/11/21 07:12 Fentanyl (Fentanyl 100 Mcg/2 Ml Sdv) Confirm Administered Dose 100 mcg .ROUTE .STK-MED ONE Stop: 01/13/21 07:13 Fentanyl (Fentanyl 100 Mcg/2 Ml Sdv) Confirm Administered Dose 100 mcg .ROUTE .STK-MED ONE Stop: 01/14/21 07:06 Fentanyl (Fentanyl 100 Mcg/2 Ml Sdv) Confirm Administered Dose 100 mcg .ROUTE .STK-MED ONE Stop: 01/15/21 07:26 Fentanyl (Fentanyl 100 Mcg/2 Ml Sdv) Confirm Administered Dose 100 mcg .ROUTE .STK-MED ONE Stop: 01/16/21 07:22 Fentanyl (Fentanyl 100 Mcg/2 Ml Sdv) Confirm Administered Dose 100 mcg .ROUTE .STK-MED ONE Stop: 01/18/21 07:11 Furosemide (Furosemide 20 Mg/2 Ml Vial) 20 mg IVPUSH ONETIME ONE Stop: 01/07/21 14:01 Last Admin: 01/07/21 13:16 Dose: 20 mg Documented by: Furosemide (Furosemide 20 Mg/2 Ml Vial) 20 mg IVPUSH Q6H [facility] Stop: 01/08/21 15:01 Last Admin: 01/08/21 14:39 Dose: 20 mg Documented by: Furosemide (Furosemide 20 Mg/2 Ml Vial) 20 mg IVPUSH Q10H [facility] Stop: 01/09/21 20:01 Last Admin: 01/09/21 19:42 Dose: 20 mg Documented by: Furosemide (Furosemide 20 Mg/2 Ml Vial) 20 mg IV ONETIME ONE Stop: 01/12/21 14:01 Last Admin: 01/12/21 13:20 Dose: 20 mg Documented by: Furosemide (Furosemide 20 Mg/2 Ml Vial) 20 mg IVPUSH ONETIME ONE Stop: 01/13/21 09:16 Last Admin: 01/13/21 16:40 Dose: 20 mg Documented by: Furosemide (Furosemide 20 Mg/2 Ml Vial) 20 mg IVPUSH ONETIME ONE Stop: 01/14/21 09:31 Last Admin: 01/14/21 09:28 Dose: 20 mg Documented by: Furosemide (Furosemide 20 Mg/2 Ml Vial) 20 mg IVPUSH ONETIME ONE Stop: 01/16/21 11:01 Last Admin: 01/16/21 10:28 Dose: 20 mg Documented by: Furosemide (Furosemide 20 Mg/2 Ml Vial) 20 mg IVPUSH ONETIME ONE Stop: 01/16/21 16:01 Last Admin: 01/16/21 15:44 Dose: 20 mg Documented by: Glycopyrrolate (Glycopyrrolate 0.2 Mg/Ml 5 Ml Mdv) Confirm Administered Dose 1 mg .ROUTE .STK-MED ONE Stop: 01/07/21 06:54 Glycopyrrolate (Glycopyrrolate 0.2 Mg/Ml 5 Ml Mdv) Confirm Administered Dose 1 mg .ROUTE .STK-MED ONE Stop: 01/11/21 06:57 Heparin Sodium (Porcine) (Heparin Sodium 100 Units/Ml 5 Ml Syringe) Confirm Administered Dose 500 units .ROUTE .STK-MED ONE Stop: 01/07/21 07:03 Heparin Sodium (Porcine) (Heparin Sodium 100 Units/Ml 5 Ml Syringe) Confirm Administered Dose 1,000 units .ROUTE .STK-MED ONE Stop: 01/19/21 06:26 Last Admin: 01/19/21 07:00 Dose: 1,000 units Documented by: Lactated Ringer's (Ringers, Lactated) 1,000 mls @ 100 mls/hr IV ASDIRECTED [facility] Lactated Ringer's (Ringers, Lactated) 1,000 mls @ 40 mls/hr IV ASDIRECTED [facility] Potassium Phosphate 15 mmol/ (Premix) 250 mls @ 85 mls/hr IV Q3H [facility] Stop: 01/06/21 13:57 Last Admin: 01/06/21 11:20 Dose: 85 mls/hr Documented by: Magnesium Sulfate 2 gm/ Premix 50 mls @ 25 mls/hr IV Q6H [facility] Stop: 01/06/21 17:59 Last Admin: 01/06/21 09:15 Dose: 25 mls/hr Documented by: Magnesium Sulfate 2 gm/ Premix 50 mls @ 25 mls/hr IV Q6H [facility] Stop: 01/06/21 15:59 Last Admin: 01/06/21 14:23 Dose: 25 mls/hr Documented by: Albumin Human (Albumin 25%) 25 gm in 100 mls @ 25 mls/hr IV Q24H [facility] Stop: 01/09/21 19:59 Last Admin: 01/09/21 16:06 Dose: 25 mls/hr Documented by: Ceftriaxone Sodium 2 gm/ (Sodium Chloride) 50 mls @ 100 mls/hr IV Q24H [facility] Stop: 01/07/21 16:00 Last Admin: 01/07/21 13:51 Dose: 100 mls/hr Documented by: Acetaminophen 1,000 mg/ Premix 100 mls @ 400 mls/hr IV Q8H PRN PRN Reason: Pain Stop: 01/07/21 19:14 Last Admin: 01/07/21 04:55 Dose: 400 mls/hr Documented by: Multivitamins/Minerals 10 ml/Zinc 1 ml/ Amino Ac/Electrol/Dextrose/Calcium 1,011 mls @ 82 mls/hr IV .BY DURATION [facility] Stop: 01/11/21 15:30 Last Admin: 01/10/21 17:54 Dose: 82 mls/hr Documented by: Amino Ac/Electrol/Dextrose/Calcium (Clinimix E 5/15) 1,000 mls @ 82 mls/hr IV .BY DURATION [facility] Stop: 01/11/21 15:30 Last Admin: 01/11/21 07:02 Dose: 82 mls/hr Documented by: Piperacillin/Tazobactam/ (Dextrose 3.375 gm/ Premix) 50 mls @ 100 mls/hr IV Q6H [facility] Last Admin: 01/11/21 10:28 Dose: Not Given Documented by: Doxycycline Hyclate 100 mg/ (Sodium Chloride) 100 mls @ 100 mls/hr IV Q12H [facility] Last Admin: 01/15/21 10:22 Dose: 100 mls/hr Documented by: Potassium Phosphate 22.5 mmole (/ Sodium Chloride) 107.5 mls @ 30 mls/hr IV Q4H [facility] Stop: 01/08/21 17:34 Last Admin: 01/08/21 15:41 Dose: 30 mls/hr Documented by: Sodium Chloride (Normal Saline) Confirm Administered Dose 10 mls @ as directed .ROUTE .STK-MED ONE Stop: 01/09/21 06:49 Potassium Phosphate 30 mmole/ (Sodium Chloride) 110 mls @ 20 mls/hr IV ONETIME ONE Stop: 01/09/21 15:29 Last Admin: 01/09/21 11:16 Dose: 20 mls/hr Documented by: Magnesium Sulfate 2 gm/ Premix 50 mls @ 25 mls/hr IV Q6H [facility] Stop: 01/11/21 05:59 Last Admin: 01/11/21 04:46 Dose: 25 mls/hr Documented by: Potassium Phosphate 30 mmole/ (Sodium Chloride) 110 mls @ 20 mls/hr IV ONETIME ONE Stop: 01/10/21 16:29 Last Admin: 01/10/21 11:28 Dose: 20 mls/hr Documented by: Multivitamins/Minerals 10 ml/Zinc 1 ml/ Amino Ac/Electrol/Dextrose/Calcium 1,011 mls @ 82 mls/hr IV .BY DURATION [facility] Stop: 01/13/21 19:00 Last Admin: 01/12/21 21:17 Dose: 82 mls/hr Documented by: Amino Ac/Electrol/Dextrose/Calcium (Clinimix E /15) 1,000 mls @ 82 mls/hr IV .BY DURATION [facility] Stop: 01/13/21 19:00 Last Admin: 01/13/21 09:56 Dose: 82 mls/hr Documented by: Albumin Human (Albumin 25%) 25 gm in 100 mls @ 25 mls/hr IV Q24H [facility] Stop: 01/15/21 16:59 Last Admin: 01/15/21 13:19 Dose: 25 mls/hr Documented by: Multivitamins/Minerals 10 ml/Zinc 1 ml/ Amino Ac/Electrol/Dextrose/Calcium 1,011 mls @ 82 mls/hr IV .BY DURATION [facility] Stop: 01/15/21 22:30 Last Admin: 01/15/21 00:09 Dose: 82 mls/hr Documented by: Amino Ac/Electrol/Dextrose/Calcium (Clinimix E 5/15) 1,000 mls @ 82 mls/hr IV .BY DURATION [facility] Stop: 01/15/21 22:30 Last Admin: 01/15/21 13:16 Dose: 82 mls/hr Documented by: Multivitamins/Minerals 10 ml/Zinc 1 ml/ Amino Ac/Electrol/Dextrose/Calcium 1,011 mls @ 82 mls/hr IV .BY DURATION [facility] Stop: 01/19/21 15:00 Last Admin: 01/19/21 05:38 Dose: 82 mls/hr Documented by: Amino Ac/Electrol/Dextrose/Calcium (Clinimix E 5/15) 1,000 mls @ 82 mls/hr IV .BY DURATION [facility] Stop: 01/19/21 15:00 Last Admin: 01/18/21 16:47 Dose: 82 mls/hr Documented by: Magnesium Sulfate 2 gm/ Premix 50 mls @ 25 mls/hr IV Q6HR [facility] Stop: 01/18/21 05:59 Last Admin: 01/18/21 04:36 Dose: 25 mls/hr Documented by: Acetaminophen 1,000 mg/ Premix 100 mls @ 400 mls/hr IV NOW ONE Stop: 01/18/21 21:36 Last Admin: 01/18/21 21:42 Dose: 400 mls/hr Documented by: Acetaminophen 1,000 mg/ Premix 100 mls @ 400 mls/hr IV NOW ONE Stop: 01/21/21 13:01 Last Admin: 01/21/21 13:04 Dose: 400 mls/hr Documented by: Lidocaine HCl (Lidocaine 2% Jelly 10 Ml Urojet) Confirm Administered Dose 10 ml .ROUTE .STK-MED ONE Stop: 01/05/21 18:51 Last Admin: 01/05/21 19:33 Dose: Not Given Documented by: Lidocaine/Epinephrine (Lidocaine 1% With Epinephrine 1:100,000 50 Ml Mdv) Confirm Administered Dose 50 ml .ROUTE .STK-MED ONE Stop: 01/07/21 07:03 Lidocaine/Epinephrine (Lidocaine 1% With Epinephrine 1:100,000 50 Ml Mdv) Confirm Administered Dose 50 ml .ROUTE .STK-MED ONE Stop: 01/09/21 06:40 Meropenem (Meropenem 500 Mg Sdv) Confirm Administered Dose 500 mg .ROUTE .STK- MED ONE Stop: 01/07/21 08:33 Meropenem (Meropenem 500 Mg Sdv) Confirm Administered Dose 500 mg .ROUTE .STK- MED ONE Stop: 01/09/21 06:40 Last Admin: 01/09/21 08:00 Dose: 500 mg Documented by: Meropenem (Meropenem 500 Mg Sdv) Confirm Administered Dose 500 mg .ROUTE .STK- MED ONE Stop: 01/10/21 06:19 Last Admin: 01/10/21 07:31 Dose: 500 mg Documented by: Meropenem (Meropenem 500 Mg Sdv) Confirm Administered Dose 500 mg .ROUTE .STK- MED ONE Stop: 01/11/21 06:34 Meropenem (Meropenem 500 Mg Sdv) Confirm Administered Dose 500 mg .ROUTE .STK- MED ONE Stop: 01/12/21 06:36 Meropenem (Meropenem 500 Mg Sdv) Confirm Administered Dose 500 mg .ROUTE .STK- MED ONE Stop: 01/13/21 06:45 Last Admin: 01/13/21 07:30 Dose: 500 mg Documented by: Meropenem (Meropenem 500 Mg Sdv) Confirm Administered Dose 500 mg .ROUTE .STK- MED ONE Stop: 01/14/21 07:13 Meropenem (Meropenem 500 Mg Sdv) Confirm Administered Dose 500 mg .ROUTE .STK- MED ONE Stop: 01/15/21 06:38 Last Admin: 01/15/21 08:08 Dose: 500 mg Documented by: Meropenem (Meropen[place] 500 Mg Sdv) Confirm Administered Dose 500 mg .ROUTE .STK- MED ONE Stop: 01/17/21 06:46 Methylprednisolone Sodium Succinate (Methylprednisolone Sodium Succinate 125 Mg/2 Ml Sdv) 125 mg IVPUSH ONETIME PRN PRN Reason: ALLERGIC RXN Stop: 01/06/21 21:00 Metoprolol Tartrate (Metoprolol Tartrate 5 Mg/5 Ml Sdv) 5 mg IVPUSH Q6H [facility] Last Admin: 01/08/21 11:23 Dose: Not Given Documented by: Neostigmine Methylsulfate (Neostigmine Methylsulfate 1 Mg/Ml 5 Ml Syringe) Confirm Administered Dose 5 mg .ROUTE .STK-MED ONE Stop: 01/07/21 06:54 Neostigmine Methylsulfate (Neostigmine Methylsulfate 1 Mg/Ml 5 Ml Syringe) Confirm Administered Dose 5 mg .ROUTE .STK-MED ONE Stop: 01/11/21 06:57 Non-Formulary Medication (Casirivimab 120 Mg/Ml Vial) 600 mg SUBCUT ONETIME ONE Stop: 01/06/21 13:01 Last Admin: 01/06/21 12:57 Dose: 600 mg Documented by: Non-Formulary Medication (Imdevimab 120 Mg/Ml Vial) 600 mg SUBCUT ONETIME ONE Stop: 01/06/21 13:01 Last Admin: 01/06/21 12:57 Dose: 600 mg Documented by: Non-Formulary Medication (Central Total Parenteral Nutrition Bag) 0 ml IV ONETIME ONE Stop: 01/12/21 11:31 Last Admin: 01/12/21 13:10 Dose: Not Given Documented by: Non-Formulary Medication (Central Total Parenteral Nutrition Bag) 1,000 ml .XX .Continue Order [facility] Stop: 01/20/21 09:00 Non-Formulary Medication (Central Total Parenteral Nutrition Bag) 1,000 ml .XX .Continue Order [facility] Stop: 01/21/21 10:00 Non-Formulary Medication (Central Total Parenteral Nutrition Bag) 1,000 ml .XX .Continue Order [facility] Stop: 01/22/21 09:30 Ondansetron HCl (Ondansetron 4 Mg/2 Ml Sdv) Confirm Administered Dose 4 mg .ROUTE .STK-MED ONE Stop: 01/07/21 06:54 Ondansetron HCl (Ondansetron 4 Mg/2 Ml Sdv) Confirm Administered Dose 4 mg .ROUTE .STK-MED ONE Stop: 01/11/21 06:57 Phenylephrine HCl (Phenylephrine 1% 10 Mg/Ml Sdv) Confirm Administered Dose 10 mg .ROUTE .STK-MED ONE Stop: 01/09/21 06:48 Piperacillin Sod/Tazobactam Sod (Piperacillin/Tazobactam 3.375 Gm Vial) Confirm Administered Dose 3.375 gm .ROUTE .STK-MED ONE Stop: 01/07/21 08:41 Propafenone HCl (Propafenone 150 Mg Tab) 225 mg PO BID [facility] Last Admin: 01/05/21 21:18 Dose: 225 mg Documented by: Propofol (Propofol 200 Mg/20 Ml Sdv) Confirm Administered Dose 200 mg .ROUTE .STK-MED ONE Stop: 01/07/21 06:54 Propofol (Propofol 200 Mg/20 Ml Sdv) Confirm Administered Dose 400 mg .ROUTE .STK-MED ONE Stop: 01/09/21 06:47 Propofol (Propofol 200 Mg/20 Ml Sdv) 200 mg .ROUTE .STK-MED ONE Stop: 01/09/21 07:01 Propofol (Propofol 200 Mg/20 Ml Sdv) Confirm Administered Dose 200 mg .ROUTE .STK-MED ONE Stop: 01/10/21 06:30 Propofol (Propofol 200 Mg/20 Ml Sdv) Confirm Administered Dose 600 mg .ROUTE .STK-MED ONE Stop: 01/11/21 06:57 Propofol (Propofol 200 Mg/20 Ml Sdv) Confirm Administered Dose 400 mg .ROUTE .STK-MED ONE Stop: 01/13/21 07:06 Propofol (Propofol 200 Mg/20 Ml Sdv) Confirm Administered Dose 200 mg .ROUTE .STK-MED ONE Stop: 01/14/21 07:05 Propofol (Propofol 200 Mg/20 Ml Sdv) Confirm Administered Dose 200 mg .ROUTE .STK-MED ONE Stop: 01/15/21 07:26 Propofol (Propofol 200 Mg/20 Ml Sdv) Confirm Administered Dose 200 mg .ROUTE .STK-MED ONE Stop: 01/16/21 07:22 Propofol (Propofol 200 Mg/20 Ml Sdv) Confirm Administered Dose 200 mg .ROUTE .STK-MED ONE Stop: 01/17/21 06:59 Propofol (Propofol 200 Mg/20 Ml Sdv) Confirm Administered Dose 200 mg .ROUTE .STK-MED ONE Stop: 01/17/21 07:03 Propofol (Propofol 200 Mg/20 Ml Sdv) Confirm Administered Dose 200 mg .ROUTE .STK-MED ONE Stop: 01/18/21 07:10 Propofol (Propofol 200 Mg/20 Ml Sdv) 200 mg .ROUTE .STK-MED ONE Stop: 01/12/21 07:01 Propofol (Propofol 200 Mg/20 Ml Sdv) Confirm Administered Dose 400 mg .ROUTE .STK-MED ONE Stop: 01/19/21 06:52 Rocuronium [place] (Rocuronium 50 Mg/5 Ml Vial) Confirm Administered Dose 50 mg .ROUTE .STK-MED ONE Stop: 01/07/21 06:54 Rocuronium [place] (Rocuronium 50 Mg/5 Ml Vial) Confirm Administered Dose 50 mg .ROUTE .STK-MED ONE Stop: 01/11/21 06:57 Rocuronium [place] (Rocuronium 50 Mg/5 Ml Vial) 50 mg IV .STK-MED ONE Stop: 01/10/21 07:01 Succinylcholine Chloride (Succinylcholine 200 Mg/10 Ml Mdv) Confirm Administered Dose 200 mg .ROUTE .STK-MED ONE Stop: 01/11/21 06:57 - Exam Quality Assessment: No: Supplemental Oxygen Central Line Total Time: 3Days 1Hours Urinary Catheter Total Time: 10Days 23Hours General: Alert, No Acute Distress, Sedated. No: Oriented, Cooperative Lungs: Normal Respiratory Effort, Rhonchi (mild upper resp L>R) Cardiovascular: Regular Rate, Irregular Rhythm GI/Abdominal Exam: Soft, No Distention, Tender Extremities: No Pedal Edema Skin: Warm, Dry Psy/Mental Status: Alert (but lethargic ). No: Agitated - Patient Data Lab Results Last 24 hrs: Laboratory Results - last 24 hr 01/22/21 01/22/21 Range/Units 04:10 04:10 WBC 5.1 (4.5-11.0) K/uL RBC 3.46 L (4.30-5.90) M/uL Hgb 9.5 L (12.0-15.0) g/dL Hct 31.1 L (40.0-54.0) % MCV 90 (80-98) fL MCH 28 (27-31) pg MCHC 31 L (32-36) % Plt Count 124 L (150-400) K/uL Sodium 142 (140-148) mmol/L Potassium 3.8 (3.6-5.2) mmol/L Chloride 109 H (100-108) mmol/L Carbon Dioxide 25 (21-32) mmol/L Anion Gap 11.8 (5.0-14.0) mmol/L BUN 24 H (7-18) mg/dL Creatinine 0.6 L (0.8-1.3) mg/dL Est Cr Clr Drug Dosing 74.03 mL/min Estimated GFR (MDRD) > 60 (>60) Glucose 116 H (74-106) mg/dL Calcium 9.2 (8.5-10.1) mg/dL Phosphorus 2.7 (2.5-4.9) mg/dL Total Bilirubin 0.7 (0.2-1.0) mg/dL AST 38 H (15-37) U/L ALT 52 (12-78) U/L Alkaline Phosphatase 120 H (46-116) U/L NT-Pro-B Natriuret Pep 1259 H (5-450) pg/mL Total Protein 4.8 L (6.4-8.2) g/dL Albumin 2.2 L (3.4-5.0) g/dL Globulin 2.6 (2.3-3.5) g/dL Albumin/Globulin Ratio 0.9 L (1.2-2.2) Result Diagrams: 01/22/21 04:10 01/22/21 04:10 Brock Results Last 24 hrs: Microbiology 01/18/21 21:45 Aerobic Blood Culture - Final Blood - Arm, Left Enterococcus Faecalis Anaerobic Blood Culture - Final Enterococcus Faecalis 01/18/21 21:57 Aerobic Blood Culture - Final Blood - Arm, Left Enterococcus Faecalis Anaerobic Blood Culture - Final Enterococcus Faecalis 01/19/21 12:50 Urine Culture - Final Urine, Clean Catch YEAST Sepsis Event Note - Evaluation Sepsis Screening Result: No Definite Risk - Focused Exam Vital Signs: Vital Signs Temp Pulse Resp BP Pulse Ox 01/22/21 10:39 36.3 C 92 18 152/52 H 95 01/22/21 07:00 36.4 C 52 L 18 140/58 L 95 - Problem List Review Problem List Initiated/Reviewed/Updated: Yes - My Orders Last 24 Hours: My Active Orders 01/21/21 14:54 Resuscitation Status Routine - Plan Plan:: ASSESSMENT AND PLAN- Rectal cancer status post APR-extensive surgery with complicated postoperative course. Postoperative course further complicated by COVID-19 infection. Patient has declined significantly over the past week. He is obtunded and unable to eat or drink anything. Family would like to transition to comfort cares at this time. I feel this is a very appropriate transition. He is well hydrated at this time and has been receiving nutritional support so I would anticipate that he may survive for up to a week or potentially to. -CODE STATUS to DO NOT RESUSCITATE and DO NOT INTUBATE -Transition to comfort cares today -Morphine and lorazepam as needed for symptom management -Discontinue all other cares Chronic atrial fibrillation-heart rate has been suboptimally controlled since he has not been able to take his oral medications. -Discontinue oral medication since he is not able to take them Disposition-I would anticipate that the patient has several days to maybe a couple of weeks before he will unless something changes quickly in the meantime. If he is not actively dying on Sunday we may consider transfer back to the retirement for comfort care there. Antonio Washington MD
[2021-01-22] MEDS ORDERED: Acetaminophen 650 MG Supp RECTAL PRN (14:25)
[2021-01-22] MEDS: Morphine 10 MG/0.5 ML Oral Syringe PO PRN ×4 (14:51→22:51)
[2021-01-22] MEDS ORDERED: Atropine Sulfate Ophth 2 ML Drops SL PRN (16:14)
[2021-01-23] MEDS: Morphine 10 MG/0.5 ML Oral Syringe PO PRN ×11 (01:48→21:57)
[2021-01-23] MEDS: LORazepam ORAL Concentrate 1MG/0.5ML U/D PO PRN ×2 (06:31→18:18)
[2021-01-23] MEDS: Atropine Sulfate Ophth 2 ML Drops SL PRN ×3 (09:40→19:55)
--- NOTE | 2021-01-23 11:31 | PCM.PN ---
- General Info Date of Service: 01/23/21 Subjective Update: No acute events overnight. Patient has been stable and appears comfortable. He appears to have Nader-Barney breathing. Per report this has been going on sinc e last night. He is obtunded and unable to provide any history. Family has been at the bedside this morning. Functional Status: Reports: Pain Controlled - Patient Data Vitals - Most Recent: Last Vital Signs Temp 37.6 C 01/23/21 07:27 Pulse 109 H 01/23/21 07:27 Resp 18 01/23/21 07:27 BP 144/46 H 01/23/21 07:27 Pulse Ox 95 01/23/21 07:27 Weight - Most Recent: 102.9 kg I&O - Last 24 Hours: Intake & Output 01/22/21 01/23/21 01/23/21 22:59 06:59 14:59 Output Total 150 500 Balance -150 -500 Med Orders - Current: Current Medications Acetaminophen (Acetaminophen 650 Mg Supp) 650 mg RECTAL Q4H PRN PRN Reason: Pain/Fever Atropine Sulfate (Atropine Sulfate Ophth 2 Ml Drops) 0 ml SL Q4H PRN PRN Reason: secretions Last Admin: 01/23/21 09:40 Dose: 4 drop Documented by: Lorazepam (Lorazepam Oral Concentrate 1mg/0.5ml U/D) 0.5 mg PO Q1H PRN PRN Reason: agitation/restlessness Last Admin: 01/23/21 06:31 Dose: 0.5 mg Documented by: Morphine Sulfate (Morphine 10 Mg/0.5 Ml Oral Syringe) 5 mg PO Q1H PRN PRN Reason: pain/air hunger Last Admin: 01/23/21 09:40 Dose: 5 mg Documented by: Discontinued Medications Acetaminophen (Acetaminophen 500 Mg Tab) 1,000 mg PO TID [facility] Last Admin: 01/07/21 11:48 Dose: Not Given Documented by: Acetaminophen (Acetaminophen 325 Mg Tab) 650 mg PO ONETIME PRN PRN Reason: HEADACHE,CHILLS Stop: 01/06/21 21:00 Acetaminophen (Acetaminophen 500 Mg Tab) 1,000 mg PO Q8H PRN PRN Reason: PAIN Last Admin: 01/08/21 04:30 Dose: 1,000 mg Documented by: Acetaminophen (Acetaminophen 500 Mg Tab) 1,000 mg PO TID [facility] Last Admin: 01/22/21 14:32 Dose: Not Given Documented by: Atropine Sulfate (Atropine Sulfate Ophth 2 Ml Drops) 4 ml SL Q4H PRN PRN Reason: secretions Bisacodyl (Bisacodyl 10 Mg Supp) 10 mg RECTAL ONETIME ONE Stop: 01/22/21 11:31 Last Admin: 01/22/21 11:19 Dose: 10 mg Documented by: Bupivacaine HCl (Bupivacaine 0.5% 50 Ml Mdv) Confirm Administered Dose 50 ml .ROUTE .STK-MED ONE Stop: 01/07/21 07:03 Bupivacaine HCl (Bupivacaine 0.5% 50 Ml Mdv) Confirm Administered Dose 50 ml .ROUTE .STK-MED ONE Stop: 01/09/21 06:40 Bupivacaine HCl/Epinephrine Bitart (Bupivacaine 0.5%/Epinephrine 1:200,000 50 Ml Mdv) Confirm Administered Dose 50 ml .ROUTE .STK-MED ONE Stop: 01/11/21 07:54 Dexamethasone (Dexamethasone 4 Mg/Ml Sdv) Confirm Administered Dose 4 mg .ROUTE .STK-MED ONE Stop: 01/07/21 06:54 Dexamethasone (Dexamethasone 4 Mg/Ml Sdv) Confirm Administered Dose 4 mg .ROUTE .STK-MED ONE Stop: 01/11/21 06:57 Diphenhydramine HCl (Diphenhydramine 50 Mg/Ml Sdv) 50 mg IVPUSH ONETIME PRN PRN Reason: ALLERGIC RXN Stop: 01/06/21 21:00 Epinephrine HCl (Epinephrine 1 Mg/Ml Sdv) 0.3 mg IM ONETIME PRN PRN Reason: ALLERGIC RXN Stop: 01/06/21 21:00 Famotidine (Famotidine 20 Mg/2 Ml Sdv) 20 mg IV ONETIME PRN PRN Reason: ALLERGIC RXN Stop: 01/06/21 21:00 Fentanyl (Fentanyl 100 Mcg/2 Ml Sdv) Confirm Administered Dose 100 mcg .ROUTE .STK-MED ONE Stop: 01/07/21 06:52 Fentanyl (Fentanyl 100 Mcg/2 Ml Sdv) Confirm Administered Dose 200 mcg .ROUTE .STK-MED ONE Stop: 01/09/21 06:46 Fentanyl (Fentanyl 100 Mcg/2 Ml Sdv) 100 mcg .ROUTE .STK-MED ONE Stop: 01/09/21 07:01 Fentanyl (Fentanyl 100 Mcg/2 Ml Sdv) Confirm Administered Dose 100 mcg .ROUTE .STK-MED ONE Stop: 01/10/21 06:30 Fentanyl (Fentanyl 100 Mcg/2 Ml Sdv) Confirm Administered Dose 100 mcg .ROUTE .STK-MED ONE Stop: 01/11/21 06:57 Fentanyl (Fentanyl 100 Mcg/2 Ml Sdv) Confirm Administered Dose 100 mcg .ROUTE .STK-MED ONE Stop: 01/11/21 07:12 Fentanyl (Fentanyl 100 Mcg/2 Ml Sdv) Confirm Administered Dose 100 mcg .ROUTE .STK-MED ONE Stop: 01/13/21 07:13 Fentanyl (Fentanyl 100 Mcg/2 Ml Sdv) Confirm Administered Dose 100 mcg .ROUTE .STK-MED ONE Stop: 01/14/21 07:06 Fentanyl (Fentanyl 100 Mcg/2 Ml Sdv) Confirm Administered Dose 100 mcg .ROUTE .STK-MED ONE Stop: 01/15/21 07:26 Fentanyl (Fentanyl 100 Mcg/2 Ml Sdv) Confirm Administered Dose 100 mcg .ROUTE .STK-MED ONE Stop: 01/16/21 07:22 Fentanyl (Fentanyl 100 Mcg/2 Ml Sdv) Confirm Administered Dose 100 mcg .ROUTE .STK-MED ONE Stop: 01/18/21 07:11 Furosemide (Furosemide 20 Mg/2 Ml Vial) 20 mg IVPUSH ONETIME ONE Stop: 01/07/21 14:01 Last Admin: 01/07/21 13:16 Dose: 20 mg Documented by: Furosemide (Furosemide 20 Mg/2 Ml Vial) 20 mg IVPUSH Q6H [facility] Stop: 01/08/21 15:01 Last Admin: 01/08/21 14:39 Dose: 20 mg Documented by: Furosemide (Furosemide 20 Mg/2 Ml Vial) 20 mg IVPUSH Q10H [facility] Stop: 01/09/21 20:01 Last Admin: 01/09/21 19:42 Dose: 20 mg Documented by: Furosemide (Furosemide 20 Mg/2 Ml Vial) 20 mg IV ONETIME ONE Stop: 01/12/21 14:01 Last Admin: 01/12/21 13:20 Dose: 20 mg Documented by: Furosemide (Furosemide 20 Mg/2 Ml Vial) 20 mg IVPUSH ONETIME ONE Stop: 01/13/21 09:16 Last Admin: 01/13/21 16:40 Dose: 20 mg Documented by: Furosemide (Furosemide 20 Mg/2 Ml Vial) 20 mg IVPUSH ONETIME ONE Stop: 01/14/21 09:31 Last Admin: 01/14/21 09:28 Dose: 20 mg Documented by: Furosemide (Furosemide 20 Mg/2 Ml Vial) 20 mg IVPUSH ONETIME ONE Stop: 01/16/21 11:01 Last Admin: 01/16/21 10:28 Dose: 20 mg Documented by: Furosemide (Furosemide 20 Mg/2 Ml Vial) 20 mg IVPUSH ONETIME ONE Stop: 01/16/21 16:01 Last Admin: 01/16/21 15:44 Dose: 20 mg Documented by: Glycopyrrolate (Glycopyrrolate 0.2 Mg/Ml 5 Ml Mdv) Confirm Administered Dose 1 mg .ROUTE .STK-MED ONE Stop: 01/07/21 06:54 Glycopyrrolate (Glycopyrrolate 0.2 Mg/Ml 5 Ml Mdv) Confirm Administered Dose 1 mg .ROUTE .STK-MED ONE Stop: 01/11/21 06:57 Haloperidol Lactate (Haloperidol Lactate 5 Mg/Ml Sdv) 2.5 mg IVPUSH Q4H PRN PRN Reason: Agitation Heparin Sodium (Porcine) (Heparin Sodium 100 Units/Ml 5 Ml Syringe) Confirm Administered Dose 500 units .ROUTE .STK-MED ONE Stop: 01/07/21 07:03 Heparin Sodium (Porcine) (Heparin Sodium 100 Units/Ml 5 Ml Syringe) 300 units FLUSH ASDIRECTED PRN PRN Reason: IV Use Last Admin: 01/22/21 14:52 Dose: 300 units Documented by: Heparin Sodium (Porcine) (Heparin Sodium 100 Units/Ml 5 Ml Syringe) Confirm Administered Dose 1,000 units .ROUTE .STK-MED ONE Stop: 01/19/21 06:26 Last Admin: 01/19/21 07:00 Dose: 1,000 units Documented by: Lactated Ringer's (Ringers, Lactated) 1,000 mls @ 100 mls/hr IV ASDIRECTED MARCELO Lactated Ringer's (Ringers, Lactated) 1,000 mls @ 40 mls/hr IV ASDIRECTED MARCELO Potassium Phosphate 15 mmol/ (Premix) 250 mls @ 85 mls/hr IV Q3H [facility] Stop: 01/06/21 13:57 Last Admin: 01/06/21 11:20 Dose: 85 mls/hr Documented by: Magnesium Sulfate 2 gm/ Premix 50 mls @ 25 mls/hr IV Q6H [facility] Stop: 01/06/21 17:59 Last Admin: 01/06/21 09:15 Dose: 25 mls/hr Documented by: Magnesium Sulfate 2 gm/ Premix 50 mls @ 25 mls/hr IV Q6H [facility] Stop: 01/06/21 15:59 Last Admin: 01/06/21 14:23 Dose: 25 mls/hr Documented by: Albumin Human (Albumin 25%) 25 gm in 100 mls @ 25 mls/hr IV Q24H [facility] Stop: 01/09/21 19:59 Last Admin: 01/09/21 16:06 Dose: 25 mls/hr Documented by: Ceftriaxone Sodium 2 gm/ (Sodium Chloride) 50 mls @ 100 mls/hr IV Q24H [facility] Stop: 01/07/21 16:00 Last Admin: 01/07/21 13:51 Dose: 100 mls/hr Documented by: Acetaminophen 1,000 mg/ Premix 100 mls @ 400 mls/hr IV Q8H PRN PRN Reason: Pain Stop: 01/07/21 19:14 Last Admin: 01/07/21 04:55 Dose: 400 mls/hr Documented by: Lactated Ringer's (Ringers, Lactated) 1,000 mls @ 25 mls/hr IV ASDIRECTED [facility] Last Admin: 01/07/21 14:52 Dose: 25 mls/hr Documented by: Multivitamins/Minerals 10 ml/Zinc 1 ml/ Amino Ac/Electrol/Dextrose/Calcium 1,011 mls @ 82 mls/hr IV .BY DURATION [facility] Stop: 01/11/21 15:30 Last Admin: 01/10/21 17:54 Dose: 82 mls/hr Documented by: Amino Ac/Electrol/Dextrose/Calcium (Clinimix E 5/15) 1,000 mls @ 82 mls/hr IV . BY DURATION [facility] Stop: 01/11/21 15:30 Last Admin: 01/11/21 07:02 Dose: 82 mls/hr Documented by: Piperacillin/Tazobactam/ (Dextrose 3.375 gm/ Premix) 50 mls @ 100 mls/hr IV Q6H [facility] Last Admin: 01/11/21 10:28 Dose: Not Given Documented by: Doxycycline Hyclate 100 mg/ (Sodium Chloride) 100 mls @ 100 mls/hr IV Q12H [facility] Last Admin: 01/15/21 10:22 Dose: 100 mls/hr Documented by: Potassium Phosphate 22.5 mmole (/ Sodium Chloride) 107.5 mls @ 30 mls/hr IV Q4H [facility] Stop: 01/08/21 17:34 Last Admin: 01/08/21 15:41 Dose: 30 mls/hr Documented by: Sodium Chloride (Normal Saline) Confirm Administered Dose 10 mls @ as directed .ROUTE .STK-MED ONE Stop: 01/09/21 06:49 Potassium Phosphate 30 mmole/ (Sodium Chloride) 110 mls @ 20 mls/hr IV ONETIME ONE Stop: 01/09/21 15:29 Last Admin: 01/09/21 11:16 Dose: 20 mls/hr Documented by: Magnesium Sulfate 2 gm/ Premix 50 mls @ 25 mls/hr IV Q6H [facility] Stop: 01/11/21 05:59 Last Admin: 01/11/21 04:46 Dose: 25 mls/hr Documented by: Potassium Phosphate 30 mmole/ (Sodium Chloride) 110 mls @ 20 mls/hr IV ONETIME ONE Stop: 01/10/21 16:29 Last Admin: 01/10/21 11:28 Dose: 20 mls/hr Documented by: Multivitamins/Minerals 10 ml/Zinc 1 ml/ Amino Ac/Electrol/Dextrose/Calcium 1,011 mls @ 82 mls/hr IV .BY DURATION [facility] Stop: 01/13/21 19:00 Last Admin: 01/12/21 21:17 Dose: 82 mls/hr Documented by: Amino Ac/Electrol/Dextrose/Calcium (Clinimix E /15) 1,000 mls @ 82 mls/hr IV .BY DURATION [facility] Stop: 01/13/21 19:00 Last Admin: 01/13/21 09:56 Dose: 82 mls/hr Documented by: Albumin Human (Albumin 25%) 25 gm in 100 mls @ 25 mls/hr IV Q24H [facility] Stop: 01/15/21 16:59 Last Admin: 01/15/21 13:19 Dose: 25 mls/hr Documented by: Multivitamins/Minerals 10 ml/Zinc 1 ml/ Amino Ac/Electrol/Dextrose/Calcium 1,011 mls @ 82 mls/hr IV .BY DURATION [facility] Stop: 01/15/21 22:30 Last Admin: 01/15/21 00:09 Dose: 82 mls/hr Documented by: Amino Ac/Electrol/Dextrose/Calcium (Clinimix E 5/15) 1,000 mls @ 82 mls/hr IV .BY DURATION [facility] Stop: 01/15/21 22:30 Last Admin: 01/15/21 13:16 Dose: 82 mls/hr Documented by: Fat Emulsion Intravenous (Intralipid 20%) 100 mls @ 8.4 mls/hr IV Q48H [facility] Last Admin: 01/21/21 15:29 Dose: 8.4 mls/hr Documented by: Multivitamins/Minerals 10 ml/Zinc 1 ml/ Amino Ac/Electrol/Dextrose/Calcium 1,011 mls @ 82 mls/hr IV .BY DURATION [facility] Stop: 01/19/21 15:00 Last Admin: 01/19/21 05:38 Dose: 82 mls/hr Documented by: Amino Ac/Electrol/Dextrose/Calcium (Clinimix E 5/15) 1,000 mls @ 82 mls/hr IV .BY DURATION [facility] Stop: 01/19/21 15:00 Last Admin: 01/18/21 16:47 Dose: 82 mls/hr Documented by: Magnesium Sulfate 2 gm/ Premix 50 mls @ 25 mls/hr IV Q6HR [facility] Stop: 01/18/21 05:59 Last Admin: 01/18/21 04:36 Dose: 25 mls/hr Documented by: Acetaminophen 1,000 mg/ Premix 100 mls @ 400 mls/hr IV NOW ONE Stop: 01/18/21 21:36 Last Admin: 01/18/21 21:42 Dose: 400 mls/hr Documented by: Multivitamins/Minerals 10 ml/Zinc 1 ml/ Amino Ac/Electrol/Dextrose/Calcium 1,011 mls @ 82 mls/hr IV .BY DURATION [facility] Last Admin: 01/22/21 07:50 Dose: 82 mls/hr Documented by: Amino Ac/Electrol/Dextrose/Calcium (Clinimix E 5/15) 1,000 mls @ 82 mls/hr IV .BY DURATION [facility] Last Admin: 01/21/21 18:50 Dose: 82 mls/hr Documented by: Linezolid 600 mg/ Premix 300 mls @ 300 mls/hr IV Q12H [facility] Last Admin: 01/22/21 14:33 Dose: Not Given Documented by: Acetaminophen 1,000 mg/ Premix 100 mls @ 400 mls/hr IV NOW ONE Stop: 01/21/21 13:01 Last Admin: 01/21/21 13:04 Dose: 400 mls/hr Documented by: Ketoconazole (Ketoconazole 2% Crm 30 Gm Tube) 0 gm TOP ASDIRECTED PRN PRN Reason: DRESSING CHANGES Last Admin: 01/16/21 08:35 Dose: 1 applic Documented by: Lactobacillus Rhamnosus (Lactobacillus Rhamnosus Gg (Probiotic) Cap) 2 cap PO DAILY [facility] Last Admin: 01/22/21 08:31 Dose: Not Given Documented by: Lidocaine HCl (Lidocaine 2% Jelly 10 Ml Urojet) Confirm Administered Dose 10 ml .ROUTE .STK-MED ONE Stop: 01/05/21 18:51 Last Admin: 01/05/21 19:33 Dose: Not Given Documented by: Lidocaine/Epinephrine (Lidocaine 1% With Epinephrine 1:100,000 50 Ml Mdv) Confirm Administered Dose 50 ml .ROUTE .STK-MED ONE Stop: 01/07/21 07:03 Lidocaine/Epinephrine (Lidocaine 1% With Epinephrine 1:100,000 50 Ml Mdv) Confirm Administered Dose 50 ml .ROUTE .STK-MED ONE Stop: 01/09/21 06:40 Melatonin (Melatonin 3 Mg Tab) 9 mg PO BEDTIME [facility] Last Admin: 01/21/21 20:04 Dose: Not Given Documented by: Meropenem (Meropenem 500 Mg Sdv) Confirm Administered Dose 500 mg .ROUTE .STK- MED ONE Stop: 01/07/21 08:33 Meropenem (Meropenem 500 Mg Sdv) Confirm Administered Dose 500 mg .ROUTE .STK-ME D ONE Stop: 01/09/21 06:40 Last Admin: 01/09/21 08:00 Dose: 500 mg Documented by: Meropenem (Meropenem 500 Mg Sdv) Confirm Administered Dose 500 mg .ROUTE .STK- MED ONE Stop: 01/10/21 06:19 Last Admin: 01/10/21 07:31 Dose: 500 mg Documented by: Meropenem (Meropenem 500 Mg Sdv) Confirm Administered Dose 500 mg .ROUTE .STK- MED ONE Stop: 01/11/21 06:34 Meropenem (Meropenem 500 Mg Sdv) Confirm Administered Dose 500 mg .ROUTE .STK- MED ONE Stop: 01/12/21 06:36 Meropenem (Meropenem 500 Mg Sdv) Confirm Administered Dose 500 mg .ROUTE .STK- MED ONE Stop: 01/13/21 06:45 Last Admin: 01/13/21 07:30 Dose: 500 mg Documented by: Meropenem (Meropenem 500 Mg Sdv) Confirm Administered Dose 500 mg .ROUTE .STK- MED ONE Stop: 01/14/21 07:13 Meropenem (Meropenem 500 Mg Sdv) Confirm Administered Dose 500 mg .ROUTE .STK- MED ONE Stop: 01/15/21 06:38 Last Admin: 01/15/21 08:08 Dose: 500 mg Documented by: Meropenem (Meropenem 500 Mg Sdv) Confirm Administered Dose 500 mg .ROUTE .STK- MED ONE Stop: 01/17/21 06:46 Methylprednisolone Sodium Succinate (Methylprednisolone Sodium Succinate 125 Mg/ 2 Ml Sdv) 125 mg IVPUSH ONETIME PRN PRN Reason: ALLERGIC RXN Stop: 01/06/21 21:00 Metoprolol Tartrate (Metoprolol Tartrate 5 Mg/5 Ml Sdv) 5 mg IVPUSH Q6H [facility] Last Admin: 01/08/21 11:23 Dose: Not Given Documented by: Metoprolol Tartrate (Metoprolol Tartrate 25 Mg Tab) 25 mg PO BID [facility] Last Admin: 01/22/21 08:32 Dose: Not Given Documented by: Morphine Sulfate (Morphine 2 Mg/Ml Syringe) 2 mg IVPUSH Q2H PRN PRN Reason: Pain Last Admin: 01/21/21 06:29 Dose: 2 mg Documented by: Neostigmine Methylsulfate (Neostigmine Methylsulfate 1 Mg/Ml 5 Ml Syringe) Confirm Administered Dose 5 mg .ROUTE .STK-MED ONE Stop: 01/07/21 06:54 Neostigmine Methylsulfate (Neostigmine Methylsulfate 1 Mg/Ml 5 Ml Syringe) Confirm Administered Dose 5 mg .ROUTE .STK-MED ONE Stop: 01/11/21 06:57 Non-Formulary Medication (Casirivimab 120 Mg/Ml Vial) 600 mg SUBCUT ONETIME ONE Stop: 01/06/21 13:01 Last Admin: 01/06/21 12:57 Dose: 600 mg Documented by: Non-Formulary Medication (Imdevimab 120 Mg/Ml Vial) 600 mg SUBCUT ONETIME ONE Stop: 01/06/21 13:01 Last Admin: 01/06/21 12:57 Dose: 600 mg Documented by: Non-Formulary Medication (Central Total Parenteral Nutrition Bag) 0 ml IV ONETIME ONE Stop: 01/12/21 11:31 Last Admin: 01/12/21 13:10 Dose: Not Given Documented by: Non-Formulary Medication (Central Total Parenteral Nutrition Bag) 1,000 ml .XX .Continue Order [facility] Stop: 01/20/21 09:00 Non-Formulary Medication (Central Total Parenteral Nutrition Bag) 1,000 ml .XX .Continue Order [facility] Stop: 01/21/21 10:00 Non-Formulary Medication (Central Total Parenteral Nutrition Bag) 1,000 ml .XX .Continue Order [facility] Stop: 01/22/21 09:30 Ondansetron HCl (Ondansetron 4 Mg/2 Ml Sdv) 4 mg IVPUSH Q4H PRN PRN Reason: Nausea Last Admin: 01/18/21 09:42 Dose: 4 mg Documented by: Ondansetron HCl (Ondansetron 4 Mg/2 Ml Sdv) Confirm Administered Dose 4 mg .ROUTE .STK-MED ONE Stop: 01/07/21 06:54 Ondansetron HCl (Ondansetron 4 Mg/2 Ml Sdv) Confirm Administered Dose 4 mg .ROUTE .STK-MED ONE Stop: 01/11/21 06:57 Pantoprazole Sodium (Pantoprazole 40 Mg Tab.Cr) [facility] Last Admin: 01/22/21 08:31 Dose: Not Given Documented by: Phenylephrine HCl (Phenylephrine 1% 10 Mg/Ml Sdv) Confirm Administered Dose 10 mg .ROUTE .STK-MED ONE Stop: 01/09/21 06:48 Piperacillin Sod/Tazobactam Sod (Piperacillin/Tazobactam 3.375 Gm Vial) Confirm Administered Dose 3.375 gm .ROUTE .STK-MED ONE Stop: 01/07/21 08:41 Potassium Chloride (Potassium Chloride 20 Meq Tab.Er) 40 meq PO DAILY [facility] Last Admin: 01/22/21 08:31 Dose: Not Given Documented by: Propafenone HCl (Propafenone 150 Mg Tab) 225 mg PO BID [facility] Last Admin: 01/05/21 21:18 Dose: 225 mg Documented by: Propafenone HCl (Propafenone 150 Mg Tab) 225 mg PO TID [facility] Last Admin: 01/22/21 14:32 Dose: Not Given Documented by: Propofol (Propofol 200 Mg/20 Ml Sdv) Confirm Administered Dose 200 mg .ROUTE .STK-MED ONE Stop: 01/07/21 06:54 Propofol (Propofol 200 Mg/20 Ml Sdv) Confirm Administered Dose 400 mg .ROUTE .STK-MED ONE Stop: 01/09/21 06:47 Propofol (Propofol 200 Mg/20 Ml Sdv) 200 mg .ROUTE .STK-MED ONE Stop: 01/09/21 07:01 Propofol (Propofol 200 Mg/20 Ml Sdv) Confirm Administered Dose 200 mg .ROUTE .STK-MED ONE Stop: 01/10/21 06:30 Propofol (Propofol 200 Mg/20 Ml Sdv) Confirm Administered Dose 600 mg .ROUTE .STK-MED ONE Stop: 01/11/21 06:57 Propofol (Propofol 200 Mg/20 Ml Sdv) Confirm Administered Dose 400 mg .ROUTE .STK-MED ONE Stop: 01/13/21 07:06 Propofol (Propofol 200 Mg/20 Ml Sdv) Confirm Administered Dose 200 mg .ROUTE .STK-MED ONE Stop: 01/14/21 07:05 Propofol (Propofol 200 Mg/20 Ml Sdv) Confirm Administered Dose 200 mg .ROUTE .STK-MED ONE Stop: 01/15/21 07:26 Propofol (Propofol 200 Mg/20 Ml Sdv) Confirm Administered Dose 200 mg .ROUTE .STK-MED ONE Stop: 01/16/21 07:22 Propofol (Propofol 200 Mg/20 Ml Sdv) Confirm Administered Dose 200 mg .ROUTE .STK-MED ONE Stop: 01/17/21 06:59 Propofol (Propofol 200 Mg/20 Ml Sdv) Confirm Administered Dose 200 mg .ROUTE .STK-MED ONE Stop: 01/17/21 07:03 Propofol (Propofol 200 Mg/20 Ml Sdv) Confirm Administered Dose 200 mg .ROUTE .S TK-MED ONE Stop: 01/18/21 07:10 Propofol (Propofol 200 Mg/20 Ml Sdv) 200 mg .ROUTE .STK-MED ONE Stop: 01/12/21 07:01 Propofol (Propofol 200 Mg/20 Ml Sdv) Confirm Administered Dose 400 mg .ROUTE .ST K-MED ONE Stop: 01/19/21 06:52 Rocuronium [place] (Rocuronium 50 Mg/5 Ml Vial) Confirm Administered Dose 50 mg .ROUTE .STK-MED ONE Stop: 01/07/21 06:54 Rocuronium [place] (Rocuronium 50 Mg/5 Ml Vial) Confirm Administered Dose 50 mg .ROUTE .STK-MED ONE Stop: 01/11/21 06:57 Rocuronium [place] (Rocuronium 50 Mg/5 Ml Vial) 50 mg IV .STK-MED ONE Stop: 01/10/21 07:01 Succinylcholine Chloride (Succinylcholine 200 Mg/10 Ml Mdv) Confirm Administered Dose 200 mg .ROUTE .STK-MED ONE Stop: 01/11/21 06:57 Tramadol HCl (Tramadol 50 Mg Tab) 50 mg PO Q6H PRN PRN Reason: Pain Last Admin: 01/17/21 12:40 Dose: 50 mg Documented by: - Exam Quality Assessment: No: Supplemental Oxygen Central Line Total Time: 3Days 12Hours Urinary Catheter Total Time: 11Days 22Hours General: No Acute Distress, Obtunded. No: Alert Lungs: Other (Nader Barney breathing) Extremities: No Pedal Edema Skin: Warm, Dry, Other (no mottling ) Psy/Mental Status: No: Alert, Agitated - Patient Data Result Diagrams: 01/22/21 04:10 01/22/21 04:10 Sepsis Event Note - Evaluation Sepsis Screening Result: No Definite Risk - Focused Exam Vital Signs: Vital Signs Temp Pulse Resp BP Pulse Ox 01/23/21 07:27 37.6 C 109 H 18 144/46 H 95 - Problem List Review Problem List Initiated/Reviewed/Updated: Yes - My Orders Last 24 Hours: My Active Orders 01/22/21 14:25 Acetaminophen [Tylenol] 650 mg RECTAL Q4H PRN 01/22/21 14:26 LORazepam [Ativan ORAL Concentrate 1MG/0.5 ML U/D] 0.5 mg PO Q1H PRN Morphine [Morphine 10 MG/0.5 ML Oral Syringe] 5 mg PO Q1H PRN 01/22/21 14:28 Resuscitation Status Routine 01/22/21 14:29 Vital Signs [RC] QSHIFT 01/22/21 16:13 Central Venous Line Discontinue [OM.PC] Routine 01/22/21 Dinner NPO Now [Nothing per Oral Now Diet] [DIET] 01/23/21 07:16 Atropine Sulfate [Atropine 1%] 0 ml SL Q4H PRN 01/23/21 15:00 Urinary Catheter Insertion [Insert Urinary Catheter] [OM.PC] Q24H - Plan Plan:: ASSESSMENT AND PLAN- Rectal cancer status post APR-extensive surgery with complicated postoperative course. Postoperative course further complicated by COVID-19 infection. Patient has declined significantly over the past week. He is obtunded and unable to eat or drink anything. He has transition to comfort cares. He is displaying Nader-Barney breathing and I would anticipate his is near. -CODE STATUS - DO NOT RESUSCITATE and DO NOT INTUBATE -Comfort care only -Morphine and lorazepam as needed for symptom management -Discontinue all other cares Chronic atrial fibrillation-heart rate has been suboptimally controlled since he has not been able to take his oral medications. -Discontinue oral medication since he is not able to take them Disposition-I would anticipate that the patient will in the next limited number of hours to maybe a couple of days. I do not think he is in any shape to make a transfer to the snf for comfort care there. Antonio Washington MD
[2021-01-24] MEDS: Morphine 10 MG/0.5 ML Oral Syringe PO PRN ×10 (00:19→22:32)
[2021-01-24] MEDS: Atropine Sulfate Ophth 2 ML Drops SL PRN ×3 (00:20→21:18)
[2021-01-24] MEDS: LORazepam ORAL Concentrate 1MG/0.5ML U/D PO PRN ×9 (05:31→23:40)
--- NOTE | 2021-01-24 17:10 | PCM.PN ---
- General Info Date of Service: 01/24/21 Subjective Update: Mr. Infante is currently on comfort cares. He is sedated and unable to provide meaningful information concerning symptoms or review of systems. He is lying in bed and appears to be very comfortable. - Patient Data Vitals - Most Recent: Last Vital Signs Temp 102.6 F H 01/24/21 15:02 Pulse 120 H 01/24/21 07:00 Resp 20 01/24/21 07:00 BP 127/62 01/24/21 07:00 Pulse Ox 100 01/24/21 07:00 Weight - Most Recent: 226 lb 13.69 oz I&O - Last 24 Hours: Intake & Output 01/24/21 01/24/21 01/24/21 06:59 14:59 22:59 Output Total 550 Balance -550 Med Orders - Current: Current Medications Acetaminophen (Acetaminophen 650 Mg Supp) 650 mg RECTAL Q4H PRN PRN Reason: Pain/Fever Atropine Sulfate (Atropine Sulfate Ophth 2 Ml Drops) 0 ml SL Q4H PRN PRN Reason: secretions Last Admin: 01/24/21 05:22 Dose: 4 drop Documented by: Lorazepam (Lorazepam Oral Concentrate 1mg/0.5ml U/D) 0.5 mg PO Q1H PRN PRN Reason: agitation/restlessness Last Admin: 01/24/21 16:06 Dose: 0.5 mg Documented by: Morphine Sulfate (Morphine 10 Mg/0.5 Ml Oral Syringe) 10 mg PO Q2H PRN PRN Reason: pain/air hunger Last Admin: 01/24/21 14:58 Dose: 10 mg Documented by: Discontinued Medications Acetaminophen (Acetaminophen 500 Mg Tab) 1,000 mg PO TID [facility] Last Admin: 01/07/21 11:48 Dose: Not Given Documented by: Acetaminophen (Acetaminophen 325 Mg Tab) 650 mg PO ONETIME PRN PRN Reason: HEADACHE,CHILLS Stop: 01/06/21 21:00 Acetaminophen (Acetaminophen 500 Mg Tab) 1,000 mg PO Q8H PRN PRN Reason: PAIN Last Admin: 01/08/21 04:30 Dose: 1,000 mg Documented by: Acetaminophen (Acetaminophen 500 Mg Tab) 1,000 mg PO TID [facility] Last Admin: 01/22/21 14:32 Dose: Not Given Documented by: Atropine Sulfate (Atropine Sulfate Ophth 2 Ml Drops) 4 ml SL Q4H PRN PRN Reason: secretions Bisacodyl (Bisacodyl 10 Mg Supp) 10 mg RECTAL ONETIME ONE Stop: 01/22/21 11:31 Last Admin: 01/22/21 11:19 Dose: 10 mg Documented by: Bupivacaine HCl (Bupivacaine 0.5% 50 Ml Mdv) Confirm Administered Dose 50 ml .ROUTE .STK-MED ONE Stop: 01/07/21 07:03 Bupivacaine HCl (Bupivacaine 0.5% 50 Ml Mdv) Confirm Administered Dose 50 ml .ROUTE .STK-MED ONE Stop: 01/09/21 06:40 Bupivacaine HCl/Epinephrine Bitart (Bupivacaine 0.5%/Epinephrine 1:200,000 50 Ml Mdv) Confirm Administered Dose 50 ml .ROUTE .STK-MED ONE Stop: 01/11/21 07:54 Dexamethasone (Dexamethasone 4 Mg/Ml Sdv) Confirm Administered Dose 4 mg .ROUTE .STK-MED ONE Stop: 01/07/21 06:54 Dexamethasone (Dexamethasone 4 Mg/Ml Sdv) Confirm Administered Dose 4 mg .ROUTE .STK-MED ONE Stop: 01/11/21 06:57 Diphenhydramine HCl (Diphenhydramine 50 Mg/Ml Sdv) 50 mg IVPUSH ONETIME PRN PRN Reason: ALLERGIC RXN Stop: 01/06/21 21:00 Epinephrine HCl (Epinephrine 1 Mg/Ml Sdv) 0.3 mg IM ONETIME PRN PRN Reason: ALLERGIC RXN Stop: 01/06/21 21:00 Famotidine (Famotidine 20 Mg/2 Ml Sdv) 20 mg IV ONETIME PRN PRN Reason: ALLERGIC RXN Stop: 01/06/21 21:00 Fentanyl (Fentanyl 100 Mcg/2 Ml Sdv) Confirm Administered Dose 100 mcg .ROUTE .STK-MED ONE Stop: 01/07/21 06:52 Fentanyl (Fentanyl 100 Mcg/2 Ml Sdv) Confirm Administered Dose 200 mcg .ROUTE .STK-MED ONE Stop: 01/09/21 06:46 Fentanyl (Fentanyl 100 Mcg/2 Ml Sdv) 100 mcg .ROUTE .STK-MED ONE Stop: 01/09/21 07:01 Fentanyl (Fentanyl 100 Mcg/2 Ml Sdv) Confirm Administered Dose 100 mcg .ROUTE .STK-MED ONE Stop: 01/10/21 06:30 Fentanyl (Fentanyl 100 Mcg/2 Ml Sdv) Confirm Administered Dose 100 mcg .ROUTE .STK-MED ONE Stop: 01/11/21 06:57 Fentanyl (Fentanyl 100 Mcg/2 Ml Sdv) Confirm Administered Dose 100 mcg .ROUTE .STK-MED ONE Stop: 01/11/21 07:12 Fentanyl (Fentanyl 100 Mcg/2 Ml Sdv) Confirm Administered Dose 100 mcg .ROUTE .STK-MED ONE Stop: 01/13/21 07:13 Fentanyl (Fentanyl 100 Mcg/2 Ml Sdv) Confirm Administered Dose 100 mcg .ROUTE .STK-MED ONE Stop: 01/14/21 07:06 Fentanyl (Fentanyl 100 Mcg/2 Ml Sdv) Confirm Administered Dose 100 mcg .ROUTE .STK-MED ONE Stop: 01/15/21 07:26 Fentanyl (Fentanyl 100 Mcg/2 Ml Sdv) Confirm Administered Dose 100 mcg .ROUTE .STK-MED ONE Stop: 01/16/21 07:22 Fentanyl (Fentanyl 100 Mcg/2 Ml Sdv) Confirm Administered Dose 100 mcg .ROUTE .STK-MED ONE Stop: 01/18/21 07:11 Furosemide (Furosemide 20 Mg/2 Ml Vial) 20 mg IVPUSH ONETIME ONE Stop: 01/07/21 14:01 Last Admin: 01/07/21 13:16 Dose: 20 mg Documented by: Furosemide (Furosemide 20 Mg/2 Ml Vial) 20 mg IVPUSH Q6H [facility] Stop: 01/08/21 15:01 Last Admin: 01/08/21 14:39 Dose: 20 mg Documented by: Furosemide (Furosemide 20 Mg/2 Ml Vial) 20 mg IVPUSH Q10H [facility] Stop: 01/09/21 20:01 Last Admin: 01/09/21 19:42 Dose: 20 mg Documented by: Furosemide (Furosemide 20 Mg/2 Ml Vial) 20 mg IV ONETIME ONE Stop: 01/12/21 14:01 Last Admin: 01/12/21 13:20 Dose: 20 mg Documented by: Furosemide (Furosemide 20 Mg/2 Ml Vial) 20 mg IVPUSH ONETIME ONE Stop: 01/13/21 09:16 Last Admin: 01/13/21 16:40 Dose: 20 mg Documented by: Furosemide (Furosemide 20 Mg/2 Ml Vial) 20 mg IVPUSH ONETIME ONE Stop: 01/14/21 09:31 Last Admin: 01/14/21 09:28 Dose: 20 mg Documented by: Furosemide (Furosemide 20 Mg/2 Ml Vial) 20 mg IVPUSH ONETIME ONE Stop: 01/16/21 11:01 Last Admin: 01/16/21 10:28 Dose: 20 mg Documented by: Furosemide (Furosemide 20 Mg/2 Ml Vial) 20 mg IVPUSH ONETIME ONE Stop: 01/16/21 16:01 Last Admin: 01/16/21 15:44 Dose: 20 mg Documented by: Glycopyrrolate (Glycopyrrolate 0.2 Mg/Ml 5 Ml Mdv) Confirm Administered Dose 1 mg .ROUTE .STK-MED ONE Stop: 01/07/21 06:54 Glycopyrrolate (Glycopyrrolate 0.2 Mg/Ml 5 Ml Mdv) Confirm Administered Dose 1 mg .ROUTE .STK-MED ONE Stop: 01/11/21 06:57 Haloperidol Lactate (Haloperidol Lactate 5 Mg/Ml Sdv) 2.5 mg IVPUSH Q4H PRN PRN Reason: Agitation Heparin Sodium (Porcine) (Heparin Sodium 100 Units/Ml 5 Ml Syringe) Confirm Administered Dose 500 units .ROUTE .STK-MED ONE Stop: 01/07/21 07:03 Heparin Sodium (Porcine) (Heparin Sodium 100 Units/Ml 5 Ml Syringe) 300 units FLUSH ASDIRECTED PRN PRN Reason: IV Use Last Admin: 01/22/21 14:52 Dose: 300 units Documented by: Heparin Sodium (Porcine) (Heparin Sodium 100 Units/Ml 5 Ml Syringe) Confirm Administered Dose 1,000 units .ROUTE .STK-MED ONE Stop: 01/19/21 06:26 Last Admin: 01/19/21 07:00 Dose: 1,000 units Documented by: Lactated Ringer's (Ringers, Lactated) 1,000 mls @ 100 mls/hr IV ASDIRECTED [facility]ARCELO Lactated Ringer's (Ringers, Lactated) 1,000 mls @ 40 mls/hr IV ASDIRECTED [facility]O Potassium Phosphate 15 mmol/ (Premix) 250 mls @ 85 mls/hr IV Q3H [facility] Stop: 01/06/21 13:57 Last Admin: 01/06/21 11:20 Dose: 85 mls/hr Documented by: Magnesium Sulfate 2 gm/ Premix 50 mls @ 25 mls/hr IV Q6H [facility] Stop: 01/06/21 17:59 Last Admin: 01/06/21 09:15 Dose: 25 mls/hr Documented by: Magnesium Sulfate 2 gm/ Premix 50 mls @ 25 mls/hr IV Q6H [facility] Stop: 01/06/21 15:59 Last Admin: 01/06/21 14:23 Dose: 25 mls/hr Documented by: Albumin Human (Albumin 25%) 25 gm in 100 mls @ 25 mls/hr IV Q24H [facility] Stop: 01/09/21 19:59 Last Admin: 01/09/21 16:06 Dose: 25 mls/hr Documented by: Ceftriaxone Sodium 2 gm/ (Sodium Chloride) 50 mls @ 100 mls/hr IV Q24H [facility] Stop: 01/07/21 16:00 Last Admin: 01/07/21 13:51 Dose: 100 mls/hr Documented by: Acetaminophen 1,000 mg/ Premix 100 mls @ 400 mls/hr IV Q8H PRN PRN Reason: Pain Stop: 01/07/21 19:14 Last Admin: 01/07/21 04:55 Dose: 400 mls/hr Documented by: Lactated Ringer's (Ringers, Lactated) 1,000 mls @ 25 mls/hr IV ASDIRECTED [facility] Last Admin: 01/07/21 14:52 Dose: 25 mls/hr Documented by: Multivitamins/Minerals 10 ml/Zinc 1 ml/ Amino Ac/Electrol/Dextrose/Calcium 1,011 mls @ 82 mls/hr IV .BY DURATION [facility] Stop: 01/11/21 15:30 Last Admin: 01/10/21 17:54 Dose: 82 mls/hr Documented by: Amino Ac/Electrol/Dextrose/Calcium (Clinimix E 5/15) 1,000 mls @ 82 mls/hr IV .BY DURATION [facility] Stop: 01/11/21 15:30 Last Admin: 01/11/21 07:02 Dose: 82 mls/hr Documented by: Piperacillin/Tazobactam/ (Dextrose 3.375 gm/ Premix) 50 mls @ 100 mls/hr IV Q6H [facility] Last Admin: 01/11/21 10:28 Dose: Not Given Documented by: Doxycycline Hyclate 100 mg/ (Sodium Chloride) 100 mls @ 100 mls/hr IV Q12H [facility] Last Admin: 01/15/21 10:22 Dose: 100 mls/hr Documented by: Potassium Phosphate 22.5 mmole (/ Sodium Chloride) 107.5 mls @ 30 mls/hr IV Q4H [facility] Stop: 01/08/21 17:34 Last Admin: 01/08/21 15:41 Dose: 30 mls/hr Documented by: Sodium Chloride (Normal Saline) Confirm Administered Dose 10 mls @ as directed .ROUTE .STK-MED ONE Stop: 01/09/21 06:49 Potassium Phosphate 30 mmole/ (Sodium Chloride) 110 mls @ 20 mls/hr IV ONETIME ONE Stop: 01/09/21 15:29 Last Admin: 01/09/21 11:16 Dose: 20 mls/hr Documented by: Magnesium Sulfate 2 gm/ Premix 50 mls @ 25 mls/hr IV Q6H [facility] Stop: 01/11/21 05:59 Last Admin: 01/11/21 04:46 Dose: 25 mls/hr Documented by: Potassium Phosphate 30 mmole/ (Sodium Chloride) 110 mls @ 20 mls/hr IV ONETIME ONE Stop: 01/10/21 16:29 Last Admin: 01/10/21 11:28 Dose: 20 mls/hr Documented by: Multivitamins/Minerals 10 ml/Zinc 1 ml/ Amino Ac/Electrol/Dextrose/Calcium 1,011 mls @ 82 mls/hr IV .BY DURATION [facility] Stop: 01/13/21 19:00 Last Admin: 01/12/21 21:17 Dose: 82 mls/hr Documented by: Amino Ac/Electrol/Dextrose/Calcium (Clinimix E /15) 1,000 mls @ 82 mls/hr IV .BY DURATION [facility] Stop: 01/13/21 19:00 Last Admin: 01/13/21 09:56 Dose: 82 mls/hr Documented by: Albumin Human (Albumin 25%) 25 gm in 100 mls @ 25 mls/hr IV Q24H [facility] Stop: 01/15/21 16:59 Last Admin: 01/15/21 13:19 Dose: 25 mls/hr Documented by: Multivitamins/Minerals 10 ml/Zinc 1 ml/ Amino Ac/Electrol/Dextrose/Calcium 1,011 mls @ 82 mls/hr IV .BY DURATION [facility] Stop: 01/15/21 22:30 Last Admin: 01/15/21 00:09 Dose: 82 mls/hr Documented by: Amino Ac/Electrol/Dextrose/Calcium (Clinimix E 5/15) 1,000 mls @ 82 mls/hr IV .BY DURATION [facility] Stop: 01/15/21 22:30 Last Admin: 01/15/21 13:16 Dose: 82 mls/hr Documented by: Fat Emulsion Intravenous (Intralipid 20%) 100 mls @ 8.4 mls/hr IV Q48H [facility] Last Admin: 01/21/21 15:29 Dose: 8.4 mls/hr Documented by: Multivitamins/Minerals 10 ml/Zinc 1 ml/ Amino Ac/Electrol/Dextrose/Calcium 1,011 mls @ 82 mls/hr IV .BY DURATION [facility] Stop: 01/19/21 15:00 Last Admin: 01/19/21 05:38 Dose: 82 mls/hr Documented by: Amino Ac/Electrol/Dextrose/Calcium (Clinimix E 5/15) 1,000 mls @ 82 mls/hr IV .BY DURATION [facility] Stop: 01/19/21 15:00 Last Admin: 01/18/21 16:47 Dose: 82 mls/hr Documented by: Magnesium Sulfate 2 gm/ Premix 50 mls @ 25 mls/hr IV Q6HR [facility] Stop: 01/18/21 05:59 Last Admin: 01/18/21 04:36 Dose: 25 mls/hr Documented by: Acetaminophen 1,000 mg/ Premix 100 mls @ 400 mls/hr IV NOW ONE Stop: 01/18/21 21:36 Last Admin: 01/18/21 21:42 Dose: 400 mls/hr Documented by: Multivitamins/Minerals 10 ml/Zinc 1 ml/ Amino Ac/Electrol/Dextrose/Calcium 1,011 mls @ 82 mls/hr IV .BY DURATION [facility] Last Admin: 01/22/21 07:50 Dose: 82 mls/hr Documented by: Amino Ac/Electrol/Dextrose/Calcium (Clinimix E 5/15) 1,000 mls @ 82 mls/hr IV .BY DURATION [facility] Last Admin: 01/21/21 18:50 Dose: 82 mls/hr Documented by: Linezolid 600 mg/ Premix 300 mls @ 300 mls/hr IV Q12H [facility] Last Admin: 01/22/21 14:33 Dose: Not Given Documented by: Acetaminophen 1,000 mg/ Premix 100 mls @ 400 mls/hr IV NOW ONE Stop: 01/21/21 13:01 Last Admin: 01/21/21 13:04 Dose: 400 mls/hr Documented by: Ketoconazole (Ketoconazole 2% Crm 30 Gm Tube) 0 gm TOP ASDIRECTED PRN PRN Reason: DRESSING CHANGES Last Admin: 01/16/21 08:35 Dose: 1 applic Documented by: Lactobacillus Rhamnosus (Lactobacillus Rhamnosus Gg (Probiotic) Cap) 2 cap PO DAILY [facility] Last Admin: 01/22/21 08:31 Dose: Not Given Documented by: Lidocaine HCl (Lidocaine 2% Jelly 10 Ml Urojet) Confirm Administered Dose 10 ml .ROUTE .STK-MED ONE Stop: 01/05/21 18:51 Last Admin: 01/05/21 19:33 Dose: Not Given Documented by: Lidocaine/Epinephrine (Lidocaine 1% With Epinephrine 1:100,000 50 Ml Mdv) Confirm Administered Dose 50 ml .ROUTE .STK-MED ONE Stop: 01/07/21 07:03 Lidocaine/Epinephrine (Lidocaine 1% With Epinephrine 1:100,000 50 Ml Mdv) Confirm Administered Dose 50 ml .ROUTE .STK-MED ONE Stop: 01/09/21 06:40 Melatonin (Melatonin 3 Mg Tab) 9 mg PO BEDTIME [facility] Last Admin: 01/21/21 20:04 Dose: Not Given Documented by: Meropenem (Meropenem 500 Mg Sdv) Confirm Administered Dose 500 mg .ROUTE .STK- MED ONE Stop: 01/07/21 08:33 Meropenem (Meropenem 500 Mg Sdv) Confirm Administered Dose 500 mg .ROUTE .STK- MED ONE Stop: 01/09/21 06:40 Last Admin: 01/09/21 08:00 Dose: 500 mg Documented by: Meropenem (Meropenem 500 Mg Sdv) Confirm Administered Dose 500 mg .ROUTE .STK- MED ONE Stop: 01/10/21 06:19 Last Admin: 01/10/21 07:31 Dose: 500 mg Documented by: Meropenem (Meropenem 500 Mg Sdv) Confirm Administered Dose 500 mg .ROUTE .STK- MED ONE Stop: 01/11/21 06:34 Meropenem (Meropenem 500 Mg Sdv) Confirm Administered Dose 500 mg .ROUTE .STK- MED ONE Stop: 01/12/21 06:36 Meropenem (Meropenem 500 Mg Sdv) Confirm Administered Dose 500 mg .ROUTE .STK- MED ONE Stop: 01/13/21 06:45 Last Admin: 01/13/21 07:30 Dose: 500 mg Documented by: Meropenem (Meropenem 500 Mg Sdv) Confirm Administered Dose 500 mg .ROUTE .STK- MED ONE Stop: 01/14/21 07:13 Meropenem (Meropenem 500 Mg Sdv) Confirm Administered Dose 500 mg .ROUTE .STK- MED ONE Stop: 01/15/21 06:38 Last Admin: 01/15/21 08:08 Dose: 500 mg Documented by: Meropenem (Meropenem 500 Mg Sdv) Confirm Administered Dose 500 mg .ROUTE .STK- MED ONE Stop: 01/17/21 06:46 Methylprednisolone Sodium Succinate (Methylprednisolone Sodium Succinate 125 Mg/2 Ml Sdv) 125 mg IVPUSH ONETIME PRN PRN Reason: ALLERGIC RXN Stop: 01/06/21 21:00 Metoprolol Tartrate (Metoprolol Tartrate 5 Mg/5 Ml Sdv) 5 mg IVPUSH Q6H [facility] Last Admin: 01/08/21 11:23 Dose: Not Given Documented by: Metoprolol Tartrate (Metoprolol Tartrate 25 Mg Tab) 25 mg PO BID [facility] Last Admin: 01/22/21 08:32 Dose: Not Given Documented by: Morphine Sulfate (Morphine 2 Mg/Ml Syringe) 2 mg IVPUSH Q2H PRN PRN Reason: Pain Last Admin: 01/21/21 06:29 Dose: 2 mg Documented by: Morphine Sulfate (Morphine 10 Mg/0.5 Ml Oral Syringe) 5 mg PO Q1H PRN PRN Reason: pain/air hunger Last Admin: 01/24/21 13:04 Dose: 5 mg Documented by: Neostigmine Methylsulfate (Neostigmine Methylsulfate 1 Mg/Ml 5 Ml Syringe) Confirm Administered Dose 5 mg .ROUTE .STK-MED ONE Stop: 01/07/21 06:54 Neostigmine Methylsulfate (Neostigmine Methylsulfate 1 Mg/Ml 5 Ml Syringe) Confirm Administered Dose 5 mg .ROUTE .STK-MED ONE Stop: 01/11/21 06:57 Non-Formulary Medication (Casirivimab 120 Mg/Ml Vial) 600 mg SUBCUT ONETIME ONE Stop: 01/06/21 13:01 Last Admin: 01/06/21 12:57 Dose: 600 mg Documented by: Non-Formulary Medication (Imdevimab 120 Mg/Ml Vial) 600 mg SUBCUT ONETIME ONE Stop: 01/06/21 13:01 Last Admin: 01/06/21 12:57 Dose: 600 mg Documented by: Non-Formulary Medication (Central Total Parenteral Nutrition Bag) 0 ml IV ONETIME ONE Stop: 01/12/21 11:31 Last Admin: 01/12/21 13:10 Dose: Not Given Documented by: Non-Formulary Medication (Central Total Parenteral Nutrition Bag) 1,000 ml .XX .Continue Order [facility] Stop: 01/20/21 09:00 Non-Formulary Medication (Central Total Parenteral Nutrition Bag) 1,000 ml .XX .Continue Order [facility] Stop: 01/21/21 10:00 Non-Formulary Medication (Central Total Parenteral Nutrition Bag) 1,000 ml .XX .Continue Order [facility] Stop: 01/22/21 09:30 Ondansetron HCl (Ondansetron 4 Mg/2 Ml Sdv) 4 mg IVPUSH Q4H PRN PRN Reason: Nausea Last Admin: 01/18/21 09:42 Dose: 4 mg Documented by: Ondansetron HCl (Ondansetron 4 Mg/2 Ml Sdv) Confirm Administered Dose 4 mg .ROUTE .STK-MED ONE Stop: 01/07/21 06:54 Ondansetron HCl (Ondansetron 4 Mg/2 Ml Sdv) Confirm Administered Dose 4 mg .ROUTE .STK-MED ONE Stop: 01/11/21 06:57 Pantoprazole Sodium (Pantoprazole 40 Mg Tab.Cr) 40 mg PO ACBREAKFAST [facility] Last Admin: 01/22/21 08:31 Dose: Not Given Documented by: Phenylephrine HCl (Phenylephrine 1% 10 Mg/Ml Sdv) Confirm Administered Dose 10 mg .ROUTE .STK-MED ONE Stop: 01/09/21 06:48 Piperacillin Sod/Tazobactam Sod (Piperacillin/Tazobactam 3.375 Gm Vial) Confirm Administered Dose 3.375 gm .ROUTE .STK-MED ONE Stop: 01/07/21 08:41 Potassium Chloride (Potassium Chloride 20 Meq Tab.Er) 40 meq PO DAILY [facility] Last Admin: 01/22/21 08:31 Dose: Not Given Documented by: Propafenone HCl (Propafenone 150 Mg Tab) 225 mg PO BID [facility] Last Admin: 01/05/21 21:18 Dose: 225 mg Documented by: Propafenone HCl (Propafenone 150 Mg Tab) 225 mg PO TID [facility] Last Admin: 01/22/21 14:32 Dose: Not Given Documented by: Propofol (Propofol 200 Mg/20 Ml Sdv) Confirm Administered Dose 200 mg .ROUTE .STK-MED ONE Stop: 01/07/21 06:54 Propofol (Propofol 200 Mg/20 Ml Sdv) Confirm Administered Dose 400 mg .ROUTE .STK-MED ONE Stop: 01/09/21 06:47 Propofol (Propofol 200 Mg/20 Ml Sdv) 200 mg .ROUTE .STK-MED ONE Stop: 01/09/21 07:01 Propofol (Propofol 200 Mg/20 Ml Sdv) Confirm Administered Dose 200 mg .ROUTE .STK-MED ONE Stop: 01/10/21 06:30 Propofol (Propofol 200 Mg/20 Ml Sdv) Confirm Administered Dose 600 mg .ROUTE .STK-MED ONE Stop: 01/11/21 06:57 Propofol (Propofol 200 Mg/20 Ml Sdv) Confirm Administered Dose 400 mg .ROUTE .STK-MED ONE Stop: 01/13/21 07:06 Propofol (Propofol 200 Mg/20 Ml Sdv) Confirm Administered Dose 200 mg .ROUTE .STK-MED ONE Stop: 01/14/21 07:05 Propofol (Propofol 200 Mg/20 Ml Sdv) Confirm Administered Dose 200 mg .ROUTE .STK-MED ONE Stop: 01/15/21 07:26 Propofol (Propofol 200 Mg/20 Ml Sdv) Confirm Administered Dose 200 mg .ROUTE .STK-MED ONE Stop: 01/16/21 07:22 Propofol (Propofol 200 Mg/20 Ml Sdv) Confirm Administered Dose 200 mg .ROUTE .STK-MED ONE Stop: 01/17/21 06:59 Propofol (Propofol 200 Mg/20 Ml Sdv) Confirm Administered Dose 200 mg .ROUTE .STK-MED ONE Stop: 01/17/21 07:03 Propofol (Propofol 200 Mg/20 Ml Sdv) Confirm Administered Dose 200 mg .ROUTE .STK-MED ONE Stop: 01/18/21 07:10 Propofol (Propofol 200 Mg/20 Ml Sdv) 200 mg .ROUTE .STK-MED ONE Stop: 01/12/21 07:01 Propofol (Propofol 200 Mg/20 Ml Sdv) Confirm Administered Dose 400 mg .ROUTE .STK-MED ONE Stop: 01/19/21 06:52 Rocuronium [place] (Rocuronium 50 Mg/5 Ml Vial) Confirm Administered Dose 50 mg .ROUTE .STK-MED ONE Stop: 01/07/21 06:54 Rocuronium [place] (Rocuronium 50 Mg/5 Ml Vial) Confirm Administered Dose 50 mg .ROUTE .STK-MED ONE Stop: 01/11/21 06:57 Rocuronium [place] (Rocuronium 50 Mg/5 Ml Vial) 50 mg IV .STK-MED ONE Stop: 01/10/21 07:01 Succinylcholine Chloride (Succinylcholine 200 Mg/10 Ml Mdv) Confirm Administered Dose 200 mg .ROUTE .STK-MED ONE Stop: 01/11/21 06:57 Tramadol HCl (Tramadol 50 Mg Tab) 50 mg PO Q6H PRN PRN Reason: Pain Last Admin: 01/17/21 12:40 Dose: 50 mg Documented by: - Exam Central Line Total Time: 3Days 12Hours Urinary Catheter Total Time: 12Days 22Hours General: Sedated, Lethargic Lungs: Decreased Breath Sounds. No: Rales, Rhonchi, Wheezing Cardiovascular: No Murmurs, Irregular Rhythm, Tachycardia GI/Abdominal Exam: Soft, No Organomegaly, Tender. No: Distended, Guarding, Rigid, Rebound Extremities: Non-Tender, No Pedal Edema - Patient Data Result Diagrams: 01/22/21 04:10 01/22/21 04:10 Sepsis Event Note - Evaluation Sepsis Screening Result: No Definite Risk - Focused Exam Vital Signs: Vital Signs Temp Pulse Resp BP Pulse Ox 01/24/21 15:02 102.6 F H 01/24/21 07:00 98.3 F 120 H 20 127/62 100 - Problem List Review Problem List Initiated/Reviewed/Updated: Yes - My Orders Last 24 Hours: My Active Orders 01/24/21 14:38 Morphine [Morphine 10 MG/0.5 ML Oral Syringe] 10 mg PO Q2H PRN - Plan Plan:: ASSESSMENT AND PLAN- Rectal cancer status post APR-extensive surgery with complicated postoperative course. Postoperative course further complicated by COVID-19 infection. Patient has declined significantly over the past week. He is obtunded and unable to eat or drink anything. He has transition to comfort cares. He is displaying Nader-Barney breathing and I would anticipate his is near. -CODE STATUS - DO NOT RESUSCITATE and DO NOT INTUBATE -Comfort care only -Morphine and lorazepam as needed for symptom management -Discontinue all other cares Chronic atrial fibrillation-heart rate has been suboptimally controlled since he has not been able to take his oral medications. -Discontinue oral medication since he is not able to take them Disposition-I would anticipate that the patient will in the next limited number of hours to maybe a couple of days. I do not think he is in any shape to make a transfer [facility].
[2021-01-25] MEDS: Morphine 10 MG/0.5 ML Oral Syringe PO PRN ×8 (01:03→23:19)
[2021-01-25] MEDS: LORazepam ORAL Concentrate 1MG/0.5ML U/D PO PRN ×5 (02:09→23:20)
[2021-01-25] MEDS: Atropine Sulfate Ophth 2 ML Drops SL PRN ×4 (02:09→20:28)
--- NOTE | 2021-01-25 14:06 | PCM.PN ---
- General Info Date of Service: 01/25/21 Subjective Update: Mr. Infante remains on comfort cares and has shown evidence of further decline over the last 24 hours. He appears to be presently comfortable with current management. Because of sedation he is unable to provide meaningful information concerning symptoms or review of systems. - Patient Data Vitals - Most Recent: Last Vital Signs Temp 99.7 F 01/25/21 12:57 Pulse 132 H 01/25/21 07:00 Resp 24 H 01/25/21 07:00 BP 87/45 L 01/25/21 07:00 Pulse Ox 82 L 01/25/21 07:00 Weight - Most Recent: 226 lb 13.69 oz I&O - Last 24 Hours: Intake & Output 01/24/21 01/25/21 01/25/21 22:59 06:59 14:59 Output Total 450 200 Balance -450 -200 Med Orders - Current: Current Medications Acetaminophen (Acetaminophen 650 Mg Supp) 650 mg RECTAL Q4H PRN PRN Reason: Pain/Fever Atropine Sulfate (Atropine Sulfate Ophth 2 Ml Drops) 0 ml SL Q4H PRN PRN Reason: secretions Last Admin: 01/25/21 06:30 Dose: 4 drop Documented by: Lorazepam (Lorazepam Oral Concentrate 1mg/0.5ml U/D) 0.5 mg PO Q1H PRN PRN Reason: agitation/restlessness Last Admin: 01/25/21 06:30 Dose: 0.5 mg Documented by: Morphine Sulfate (Morphine 10 Mg/0.5 Ml Oral Syringe) 10 mg PO Q2H PRN PRN Reason: pain/air hunger Last Admin: 01/25/21 12:57 Dose: 10 mg Documented by: Discontinued Medications Acetaminophen (Acetaminophen 500 Mg Tab) 1,000 mg PO TID [facility] Last Admin: 01/07/21 11:48 Dose: Not Given Documented by: Acetaminophen (Acetaminophen 325 Mg Tab) 650 mg PO ONETIME PRN PRN Reason: HEADACHE,CHILLS Stop: 01/06/21 21:00 Acetaminophen (Acetaminophen 500 Mg Tab) 1,000 mg PO Q8H PRN PRN Reason: PAIN Last Admin: 01/08/21 04:30 Dose: 1,000 mg Documented by: Acetaminophen (Acetaminophen 500 Mg Tab) 1,000 mg PO TID [facility] Last Admin: 01/22/21 14:32 Dose: Not Given Documented by: Atropine Sulfate (Atropine Sulfate Ophth 2 Ml Drops) 4 ml SL Q4H PRN PRN Reason: secretions Bisacodyl (Bisacodyl 10 Mg Supp) 10 mg RECTAL ONETIME ONE Stop: 01/22/21 11:31 Last Admin: 01/22/21 11:19 Dose: 10 mg Documented by: Bupivacaine HCl (Bupivacaine 0.5% 50 Ml Mdv) Confirm Administered Dose 50 ml .ROUTE .STK-MED ONE Stop: 01/07/21 07:03 Bupivacaine HCl (Bupivacaine 0.5% 50 Ml Mdv) Confirm Administered Dose 50 ml .ROUTE .STK-MED ONE Stop: 01/09/21 06:40 Bupivacaine HCl/Epinephrine Bitart (Bupivacaine 0.5%/Epinephrine 1:200,000 50 Ml Mdv) Confirm Administered Dose 50 ml .ROUTE .STK-MED ONE Stop: 01/11/21 07:54 Dexamethasone (Dexamethasone 4 Mg/Ml Sdv) Confirm Administered Dose 4 mg .ROUTE .STK-MED ONE Stop: 01/07/21 06:54 Dexamethasone (Dexamethasone 4 Mg/Ml Sdv) Confirm Administered Dose 4 mg .ROUTE .STK-MED ONE Stop: 01/11/21 06:57 Diphenhydramine HCl (Diphenhydramine 50 Mg/Ml Sdv) 50 mg IVPUSH ONETIME PRN PRN Reason: ALLERGIC RXN Stop: 01/06/21 21:00 Epinephrine HCl (Epinephrine 1 Mg/Ml Sdv) 0.3 mg IM ONETIME PRN PRN Reason: ALLERGIC RXN Stop: 01/06/21 21:00 Famotidine (Famotidine 20 Mg/2 Ml Sdv) 20 mg IV ONETIME PRN PRN Reason: ALLERGIC RXN Stop: 01/06/21 21:00 Fentanyl (Fentanyl 100 Mcg/2 Ml Sdv) Confirm Administered Dose 100 mcg .ROUTE .STK-MED ONE Stop: 01/07/21 06:52 Fentanyl (Fentanyl 100 Mcg/2 Ml Sdv) Confirm Administered Dose 200 mcg .ROUTE .STK-MED ONE Stop: 01/09/21 06:46 Fentanyl (Fentanyl 100 Mcg/2 Ml Sdv) 100 mcg .ROUTE .STK-MED ONE Stop: 01/09/21 07:01 Fentanyl (Fentanyl 100 Mcg/2 Ml Sdv) Confirm Administered Dose 100 mcg .ROUTE .STK-MED ONE Stop: 01/10/21 06:30 Fentanyl (Fentanyl 100 Mcg/2 Ml Sdv) Confirm Administered Dose 100 mcg .ROUTE .STK-MED ONE Stop: 01/11/21 06:57 Fentanyl (Fentanyl 100 Mcg/2 Ml Sdv) Confirm Administered Dose 100 mcg .ROUTE .STK-MED ONE Stop: 01/11/21 07:12 Fentanyl (Fentanyl 100 Mcg/2 Ml Sdv) Confirm Administered Dose 100 mcg .ROUTE .STK-MED ONE Stop: 01/13/21 07:13 Fentanyl (Fentanyl 100 Mcg/2 Ml Sdv) Confirm Administered Dose 100 mcg .ROUTE .STK-MED ONE Stop: 01/14/21 07:06 Fentanyl (Fentanyl 100 Mcg/2 Ml Sdv) Confirm Administered Dose 100 mcg .ROUTE .STK-MED ONE Stop: 01/15/21 07:26 Fentanyl (Fentanyl 100 Mcg/2 Ml Sdv) Confirm Administered Dose 100 mcg .ROUTE .STK-MED ONE Stop: 01/16/21 07:22 Fentanyl (Fentanyl 100 Mcg/2 Ml Sdv) Confirm Administered Dose 100 mcg .ROUTE .STK-MED ONE Stop: 01/18/21 07:11 Furosemide (Furosemide 20 Mg/2 Ml Vial) 20 mg IVPUSH ONETIME ONE Stop: 01/07/21 14:01 Last Admin: 01/07/21 13:16 Dose: 20 mg Documented by: Furosemide (Furosemide 20 Mg/2 Ml Vial) 20 mg IVPUSH Q6H [facility] Stop: 01/08/21 15:01 Last Admin: 01/08/21 14:39 Dose: 20 mg Documented by: Furosemide (Furosemide 20 Mg/2 Ml Vial) 20 mg IVPUSH Q10H [facility] Stop: 01/09/21 20:01 Last Admin: 01/09/21 19:42 Dose: 20 mg Documented by: Furosemide (Furosemide 20 Mg/2 Ml Vial) 20 mg IV ONETIME ONE Stop: 01/12/21 14:01 Last Admin: 01/12/21 13:20 Dose: 20 mg Documented by: Furosemide (Furosemide 20 Mg/2 Ml Vial) 20 mg IVPUSH ONETIME ONE Stop: 01/13/21 09:16 Last Admin: 01/13/21 16:40 Dose: 20 mg Documented by: Furosemide (Furosemide 20 Mg/2 Ml Vial) 20 mg IVPUSH ONETIME ONE Stop: 01/14/21 09:31 Last Admin: 01/14/21 09:28 Dose: 20 mg Documented by: Furosemide (Furosemide 20 Mg/2 Ml Vial) 20 mg IVPUSH ONETIME ONE Stop: 01/16/21 11:01 Last Admin: 01/16/21 10:28 Dose: 20 mg Documented by: Furosemide (Furosemide 20 Mg/2 Ml Vial) 20 mg IVPUSH ONETIME ONE Stop: 01/16/21 16:01 Last Admin: 01/16/21 15:44 Dose: 20 mg Documented by: Glycopyrrolate (Glycopyrrolate 0.2 Mg/Ml 5 Ml Mdv) Confirm Administered Dose 1 mg .ROUTE .STK-MED ONE Stop: 01/07/21 06:54 Glycopyrrolate (Glycopyrrolate 0.2 Mg/Ml 5 Ml Mdv) Confirm Administered Dose 1 mg .ROUTE .STK-MED ONE Stop: 01/11/21 06:57 Haloperidol Lactate (Haloperidol Lactate 5 Mg/Ml Sdv) 2.5 mg IVPUSH Q4H PRN PRN Reason: Agitation Heparin Sodium (Porcine) (Heparin Sodium 100 Units/Ml 5 Ml Syringe) Confirm Administered Dose 500 units .ROUTE .STK-MED ONE Stop: 01/07/21 07:03 Heparin Sodium (Porcine) (Heparin Sodium 100 Units/Ml 5 Ml Syringe) 300 units FLUSH ASDIRECTED PRN PRN Reason: IV Use Last Admin: 01/22/21 14:52 Dose: 300 units Documented by: Heparin Sodium (Porcine) (Heparin Sodium 100 Units/Ml 5 Ml Syringe) Confirm Administered Dose 1,000 units .ROUTE .STK-MED ONE Stop: 01/19/21 06:26 Last Admin: 01/19/21 07:00 Dose: 1,000 units Documented by: Lactated Ringer's (Ringers, Lactated) 1,000 mls @ 100 mls/hr IV ASDIRECTED MARCELO Lactated Ringer's (Ringers, Lactated) 1,000 mls @ 40 mls/hr IV ASDIRECTED MARCELO Potassium Phosphate 15 mmol/ (Premix) 250 mls @ 85 mls/hr IV Q3H [facility] Stop: 01/06/21 13:57 Last Admin: 01/06/21 11:20 Dose: 85 mls/hr Documented by: Magnesium Sulfate 2 gm/ Premix 50 mls @ 25 mls/hr IV Q6H [facility] Stop: 01/06/21 17:59 Last Admin: 01/06/21 09:15 Dose: 25 mls/hr Documented by: Magnesium Sulfate 2 gm/ Premix 50 mls @ 25 mls/hr IV Q6H [facility] Stop: 01/06/21 15:59 Last Admin: 01/06/21 14:23 Dose: 25 mls/hr Documented by: Albumin Human (Albumin 25%) 25 gm in 100 mls @ 25 mls/hr IV Q24H [facility] Stop: 01/09/21 19:59 Last Admin: 01/09/21 16:06 Dose: 25 mls/hr Documented by: Ceftriaxone Sodium 2 gm/ (Sodium Chloride) 50 mls @ 100 mls/hr IV Q24H [facility] Stop: 01/07/21 16:00 Last Admin: 01/07/21 13:51 Dose: 100 mls/hr Documented by: Acetaminophen 1,000 mg/ Premix 100 mls @ 400 mls/hr IV Q8H PRN PRN Reason: Pain Stop: 01/07/21 19:14 Last Admin: 01/07/21 04:55 Dose: 400 mls/hr Documented by: Lactated Ringer's (Ringers, Lactated) 1,000 mls @ 25 mls/hr IV ASDIRECTED [facility] Last Admin: 01/07/21 14:52 Dose: 25 mls/hr Documented by: Multivitamins/Minerals 10 ml/Zinc 1 ml/ Amino Ac/Electrol/Dextrose/Calcium 1,011 mls @ 82 mls/hr IV .BY DURATION [facility] Stop: 01/11/21 15:30 Last Admin: 01/10/21 17:54 Dose: 82 mls/hr Documented by: Amino Ac/Electrol/Dextrose/Calcium (Clinimix E /15) 1,000 mls @ 82 mls/hr IV .BY DURATION [facility] Stop: 01/11/21 15:30 Last Admin: 01/11/21 07:02 Dose: 82 mls/hr Documented by: Piperacillin/Tazobactam/ (Dextrose 3.375 gm/ Premix) 50 mls @ 100 mls/hr IV Q6H [facility] Last Admin: 01/11/21 10:28 Dose: Not Given Documented by: Doxycycline Hyclate 100 mg/ (Sodium Chloride) 100 mls @ 100 mls/hr IV Q12H [facility] Last Admin: 01/15/21 10:22 Dose: 100 mls/hr Documented by: Potassium Phosphate 22.5 mmole (/ Sodium Chloride) 107.5 mls @ 30 mls/hr IV Q4H [facility] Stop: 01/08/21 17:34 Last Admin: 01/08/21 15:41 Dose: 30 mls/hr Documented by: Sodium Chloride (Normal Saline) Confirm Administered Dose 10 mls @ as directed .ROUTE .STK-MED ONE Stop: 01/09/21 06:49 Potassium Phosphate 30 mmole/ (Sodium Chloride) 110 mls @ 20 mls/hr IV ONETIME ONE Stop: 01/09/21 15:29 Last Admin: 01/09/21 11:16 Dose: 20 mls/hr Documented by: Magnesium Sulfate 2 gm/ Premix 50 mls @ 25 mls/hr IV Q6H [facility] Stop: 01/11/21 05:59 Last Admin: 01/11/21 04:46 Dose: 25 mls/hr Documented by: Potassium Phosphate 30 mmole/ (Sodium Chloride) 110 mls @ 20 mls/hr IV ONETIME ONE Stop: 01/10/21 16:29 Last Admin: 01/10/21 11:28 Dose: 20 mls/hr Documented by: Multivitamins/Minerals 10 ml/Zinc 1 ml/ Amino Ac/Electrol/Dextrose/Calcium 1,011 mls @ 82 mls/hr IV .BY DURATION [facility] Stop: 01/13/21 19:00 Last Admin: 01/12/21 21:17 Dose: 82 mls/hr Documented by: Amino Ac/Electrol/Dextrose/Calcium (Clinimix E 15) 1,000 mls @ 82 mls/hr IV .BY DURATION [facility] Stop: 01/13/21 19:00 Last Admin: 01/13/21 09:56 Dose: 82 mls/hr Documented by: Albumin Human (Albumin 25%) 25 gm in 100 mls @ 25 mls/hr IV Q24H [facility] Stop: 01/15/21 16:59 Last Admin: 01/15/21 13:19 Dose: 25 mls/hr Documented by: Multivitamins/Minerals 10 ml/Zinc 1 ml/ Amino Ac/Electrol/Dextrose/Calcium 1,011 mls @ 82 mls/hr IV .BY DURATION [facility] Stop: 01/15/21 22:30 Last Admin: 01/15/21 00:09 Dose: 82 mls/hr Documented by: Amino Ac/Electrol/Dextrose/Calcium (Clinimix E 5/15) 1,000 mls @ 82 mls/hr IV .BY DURATION [facility] Stop: 01/15/21 22:30 Last Admin: 01/15/21 13:16 Dose: 82 mls/hr Documented by: Fat Emulsion Intravenous (Intralipid 20%) 100 mls @ 8.4 mls/hr IV Q48H [facility] Last Admin: 01/21/21 15:29 Dose: 8.4 mls/hr Documented by: Multivitamins/Minerals 10 ml/Zinc 1 ml/ Amino Ac/Electrol/Dextrose/Calcium 1,011 mls @ 82 mls/hr IV .BY DURATION [facility] Stop: 01/19/21 15:00 Last Admin: 01/19/21 05:38 Dose: 82 mls/hr Documented by: Amino Ac/Electrol/Dextrose/Calcium (Clinimix E 5/15) 1,000 mls @ 82 mls/hr IV .BY DURATION [facility] Stop: 01/19/21 15:00 Last Admin: 01/18/21 16:47 Dose: 82 mls/hr Documented by: Magnesium Sulfate 2 gm/ Premix 50 mls @ 25 mls/hr IV Q6HR [facility] Stop: 01/18/21 05:59 Last Admin: 01/18/21 04:36 Dose: 25 mls/hr Documented by: Acetaminophen 1,000 mg/ Premix 100 mls @ 400 mls/hr IV NOW ONE Stop: 01/18/21 21:36 Last Admin: 01/18/21 21:42 Dose: 400 mls/hr Documented by: Multivitamins/Minerals 10 ml/Zinc 1 ml/ Amino Ac/Electrol/Dextrose/Calcium 1,011 mls @ 82 mls/hr IV .BY DURATION [facility] Last Admin: 01/22/21 07:50 Dose: 82 mls/hr Documented by: Amino Ac/Electrol/Dextrose/Calcium (Clinimix E 5/15) 1,000 mls @ 82 mls/hr IV .BY DURATION [facility] Last Admin: 01/21/21 18:50 Dose: 82 mls/hr Documented by: Linezolid 600 mg/ Premix 300 mls @ 300 mls/hr IV Q12H [facility] Last Admin: 01/22/21 14:33 Dose: Not Given Documented by: Acetaminophen 1,000 mg/ Premix 100 mls @ 400 mls/hr IV NOW ONE Stop: 01/21/21 13:01 Last Admin: 01/21/21 13:04 Dose: 400 mls/hr Documented by: Ketoconazole (Ketoconazole 2% Crm 30 Gm Tube) 0 gm TOP ASDIRECTED PRN PRN Reason: DRESSING CHANGES Last Admin: 01/16/21 08:35 Dose: 1 applic Documented by: Lactobacillus Rhamnosus (Lactobacillus Rhamnosus Gg (Probiotic) Cap) 2 cap PO DAILY [facility] Last Admin: 01/22/21 08:31 Dose: Not Given Documented by: Lidocaine HCl (Lidocaine 2% Jelly 10 Ml Urojet) Confirm Administered Dose 10 ml .ROUTE .STK-MED ONE Stop: 01/05/21 18:51 Last Admin: 01/05/21 19:33 Dose: Not Given Documented by: Lidocaine/Epinephrine (Lidocaine 1% With Epinephrine 1:100,000 50 Ml Mdv) Confirm Administered Dose 50 ml .ROUTE .STK-MED ONE Stop: 01/07/21 07:03 Lidocaine/Epinephrine (Lidocaine 1% With Epinephrine 1:100,000 50 Ml Mdv) Confirm Administered Dose 50 ml .ROUTE .STK-MED ONE Stop: 01/09/21 06:40 Melatonin (Melatonin 3 Mg Tab) 9 mg PO BEDTIME [facility] Last Admin: 01/21/21 20:04 Dose: Not Given Documented by: Meropenem (Meropenem 500 Mg Sdv) Confirm Administered Dose 500 mg .ROUTE .STK- MED ONE Stop: 01/07/21 08:33 Meropenem (Meropenem 500 Mg Sdv) Confirm Administered Dose 500 mg .ROUTE .STK- MED ONE Stop: 01/09/21 06:40 Last Admin: 01/09/21 08:00 Dose: 500 mg Documented by: Meropenem (Meropenem 500 Mg Sdv) Confirm Administered Dose 500 mg .ROUTE .STK- MED ONE Stop: 01/10/21 06:19 Last Admin: 01/10/21 07:31 Dose: 500 mg Documented by: Meropenem (Meropenem 500 Mg Sdv) Confirm Administered Dose 500 mg .ROUTE .STK- MED ONE Stop: 01/11/21 06:34 Meropenem (Meropenem 500 Mg Sdv) Confirm Administered Dose 500 mg .ROUTE .STK- MED ONE Stop: 01/12/21 06:36 Meropenem (Meropenem 500 Mg Sdv) Confirm Administered Dose 500 mg .ROUTE .STK- MED ONE Stop: 01/13/21 06:45 Last Admin: 01/13/21 07:30 Dose: 500 mg Documented by: Meropenem (Meropenem 500 Mg Sdv) Confirm Administered Dose 500 mg .ROUTE .STK- MED ONE Stop: 01/14/21 07:13 Meropenem (Meropenem 500 Mg Sdv) Confirm Administered Dose 500 mg .ROUTE .STK- MED ONE Stop: 01/15/21 06:38 Last Admin: 01/15/21 08:08 Dose: 500 mg Documented by: Meropenem (Meropenem 500 Mg Sdv) Confirm Administered Dose 500 mg .ROUTE .STK- MED ONE Stop: 01/17/21 06:46 Methylprednisolone Sodium Succinate (Methylprednisolone Sodium Succinate 125 Mg/2 Ml Sdv) 125 mg IVPUSH ONETIME PRN PRN Reason: ALLERGIC RXN Stop: 01/06/21 21:00 Metoprolol Tartrate (Metoprolol Tartrate 5 Mg/5 Ml Sdv) 5 mg IVPUSH Q6H [facility] Last Admin: 01/08/21 11:23 Dose: Not Given Documented by: Metoprolol Tartrate (Metoprolol Tartrate 25 Mg Tab) 25 mg PO BID [facility] Last Admin: 01/22/21 08:32 Dose: Not Given Documented by: Morphine Sulfate (Morphine 2 Mg/Ml Syringe) 2 mg IVPUSH Q2H PRN PRN Reason: Pain Last Admin: 01/21/21 06:29 Dose: 2 mg Documented by: Morphine Sulfate (Morphine 10 Mg/0.5 Ml Oral Syringe) 5 mg PO Q1H PRN PRN Reason: pain/air hunger Last Admin: 01/24/21 13:04 Dose: 5 mg Documented by: Neostigmine Methylsulfate (Neostigmine Methylsulfate 1 Mg/Ml 5 Ml Syringe) Confirm Administered Dose 5 mg .ROUTE .STK-MED ONE Stop: 01/07/21 06:54 Neostigmine Methylsulfate (Neostigmine Methylsulfate 1 Mg/Ml 5 Ml Syringe) Confirm Administered Dose 5 mg .ROUTE .STK-MED ONE Stop: 01/11/21 06:57 Non-Formulary Medication (Casirivimab 120 Mg/Ml Vial) 600 mg SUBCUT ONETIME ONE Stop: 01/06/21 13:01 Last Admin: 01/06/21 12:57 Dose: 600 mg Documented by: Non-Formulary Medication (Imdevimab 120 Mg/Ml Vial) 600 mg SUBCUT ONETIME ONE Stop: 01/06/21 13:01 Last Admin: 01/06/21 12:57 Dose: 600 mg Documented by: Non-Formulary Medication (Central Total Parenteral Nutrition Bag) 0 ml IV ONETIME ONE Stop: 01/12/21 11:31 Last Admin: 01/12/21 13:10 Dose: Not Given Documented by: Non-Formulary Medication (Central Total Parenteral Nutrition Bag) 1,000 ml .XX .Continue Order [facility] Stop: 01/20/21 09:00 Non-Formulary Medication (Central Total Parenteral Nutrition Bag) 1,000 ml .XX .Continue Order [facility] Stop: 01/21/21 10:00 Non-Formulary Medication (Central Total Parenteral Nutrition Bag) 1,000 ml .XX .Continue Order [facility] Stop: 01/22/21 09:30 Ondansetron HCl (Ondansetron 4 Mg/2 Ml Sdv) 4 mg IVPUSH Q4H PRN PRN Reason: Nausea Last Admin: 01/18/21 09:42 Dose: 4 mg Documented by: Ondansetron HCl (Ondansetron 4 Mg/2 Ml Sdv) Confirm Administered Dose 4 mg .ROUTE .STK-MED ONE Stop: 01/07/21 06:54 Ondansetron HCl (Ondansetron 4 Mg/2 Ml Sdv) Confirm Administered Dose 4 mg .ROUTE .STK-MED ONE Stop: 01/11/21 06:57 Pantoprazole Sodium (Pantoprazole 40 Mg Tab.Cr) 40 mg PO ACBREAKFAST [facility] Last Admin: 01/22/21 08:31 Dose: Not Given Documented by: Phenylephrine HCl (Phenylephrine 1% 10 Mg/Ml Sdv) Confirm Administered Dose 10 mg .ROUTE .STK-MED ONE Stop: 01/09/21 06:48 Piperacillin Sod/Tazobactam Sod (Piperacillin/Tazobactam 3.375 Gm Vial) Confirm Administered Dose 3.375 gm .ROUTE .STK-MED ONE Stop: 01/07/21 08:41 Potassium Chloride (Potassium Chloride 20 Meq Tab.Er) 40 meq PO DAILY [facility] Last Admin: 01/22/21 08:31 Dose: Not Given Documented by: Propafenone HCl (Propafenone 150 Mg Tab) 225 mg PO BID [facility] Last Admin: 01/05/21 21:18 Dose: 225 mg Documented by: Propafenone HCl (Propafenone 150 Mg Tab) 225 mg PO TID [facility] Last Admin: 01/22/21 14:32 Dose: Not Given Documented by: Propofol (Propofol 200 Mg/20 Ml Sdv) Confirm Administered Dose 200 mg .ROUTE .STK-MED ONE Stop: 01/07/21 06:54 Propofol (Propofol 200 Mg/20 Ml Sdv) Confirm Administered Dose 400 mg .ROUTE .STK-MED ONE Stop: 01/09/21 06:47 Propofol (Propofol 200 Mg/20 Ml Sdv) 200 mg .ROUTE .STK-MED ONE Stop: 01/09/21 07:01 Propofol (Propofol 200 Mg/20 Ml Sdv) Confirm Administered Dose 200 mg .ROUTE .STK-MED ONE Stop: 01/10/21 06:30 Propofol (Propofol 200 Mg/20 Ml Sdv) Confirm Administered Dose 600 mg .ROUTE .STK-MED ONE Stop: 01/11/21 06:57 Propofol (Propofol 200 Mg/20 Ml Sdv) Confirm Administered Dose 400 mg .ROUTE .STK-MED ONE Stop: 01/13/21 07:06 Propofol (Propofol 200 Mg/20 Ml Sdv) Confirm Administered Dose 200 mg .ROUTE .STK-MED ONE Stop: 01/14/21 07:05 Propofol (Propofol 200 Mg/20 Ml Sdv) Confirm Administered Dose 200 mg .ROUTE .STK-MED ONE Stop: 01/15/21 07:26 Propofol (Propofol 200 Mg/20 Ml Sdv) Confirm Administered Dose 200 mg .ROUTE .STK-MED ONE Stop: 01/16/21 07:22 Propofol (Propofol 200 Mg/20 Ml Sdv) Confirm Administered Dose 200 mg .ROUTE .STK-MED ONE Stop: 01/17/21 06:59 Propofol (Propofol 200 Mg/20 Ml Sdv) Confirm Administered Dose 200 mg .ROUTE .STK-MED ONE Stop: 01/17/21 07:03 Propofol (Propofol 200 Mg/20 Ml Sdv) Confirm Administered Dose 200 mg .ROUTE .STK-MED ONE Stop: 01/18/21 07:10 Propofol (Propofol 200 Mg/20 Ml Sdv) 200 mg .ROUTE .STK-MED ONE Stop: 01/12/21 07:01 Propofol (Propofol 200 Mg/20 Ml Sdv) Confirm Administered Dose 400 mg .ROUTE .STK-MED ONE Stop: 01/19/21 06:52 Rocuronium Tracy (Rocuronium 50 Mg/5 Ml Vial) Confirm Administered Dose 50 mg .ROUTE .STK-MED ONE Stop: 01/07/21 06:54 Rocuronium Tracy (Rocuronium 50 Mg/5 Ml Vial) Confirm Administered Dose 50 mg .ROUTE .STK-MED ONE Stop: 01/11/21 06:57 Rocuronium Tracy (Rocuronium 50 Mg/5 Ml Vial) 50 mg IV .STK-MED ONE Stop: 01/10/21 07:01 Succinylcholine Chloride (Succinylcholine 200 Mg/10 Ml Mdv) Confirm Administered Dose 200 mg .ROUTE .STK-MED ONE Stop: 01/11/21 06:57 Tramadol HCl (Tramadol 50 Mg Tab) 50 mg PO Q6H PRN PRN Reason: Pain Last Admin: 01/17/21 12:40 Dose: 50 mg Documented by: - Exam Central Line Total Time: 3Days 12Hours Urinary Catheter Total Time: 13Days 23Hours General: Sedated, Lethargic Lungs: Rhonchi. No: Clear to Auscultation, Normal Respiratory Effort Cardiovascular: Irregular Rhythm, Tachycardia, Murmurs GI/Abdominal Exam: Soft, No Organomegaly, Tender. No: Distended, Guarding, Rigid, Rebound Extremities: Non-Tender, No Pedal Edema - Patient Data Result Diagrams: 01/22/21 04:10 01/22/21 04:10 Sepsis Event Note - Evaluation Sepsis Screening Result: No Definite Risk - Focused Exam Vital Signs: Vital Signs Temp Pulse Resp BP Pulse Ox 01/25/21 12:57 99.7 F 01/25/21 07:00 100.9 F H 132 H 24 H 87/45 L 82 L - Problem List Review Problem List Initiated/Reviewed/Updated: Yes - My Orders Last 24 Hours: My Active Orders 01/24/21 14:38 Morphine [Morphine 10 MG/0.5 ML Oral Syringe] 10 mg PO Q2H PRN - Plan Plan:: ASSESSMENT AND PLAN- Rectal cancer status post APR-extensive surgery with complicated postoperative course. Postoperative course further complicated by COVID-19 infection. Patient has declined significantly over the past week. He is obtunded and unable to eat or drink anything. He has transition to comfort cares. He is displaying Nader-Barney breathing and I would anticipate his is near. -CODE STATUS - DO NOT RESUSCITATE and DO NOT INTUBATE -Comfort care only -Morphine and lorazepam as needed for symptom management -Discontinue all other cares Chronic atrial fibrillation-heart rate has been suboptimally controlled since he has not been able to take his oral medications. -Discontinue oral medication since he is not able to take them Disposition-I would anticipate that the patient will in the next limited number of hours to maybe a couple of days. I do not think he is in any shape to make a transfer to the detention for comfort care there.
[2021-01-26] MEDS: Morphine 10 MG/0.5 ML Oral Syringe PO PRN ×9 (01:59→23:47)
[2021-01-26] MEDS: Atropine Sulfate Ophth 2 ML Drops SL PRN ×3 (10:23→23:46)
--- NOTE | 2021-01-26 17:03 | PCM.PN ---
- General Info Date of Service: 01/26/21 Subjective Update: Mr. Infante remains on comfort cares. He is sedated and unable to provide meaningful information concerning symptoms or review of systems. He appears to be comfortable with current management. - Patient Data Vitals - Most Recent: Last Vital Signs Temp 101.1 F H 01/26/21 07:00 Pulse 115 H 01/26/21 07:00 Resp 30 H 01/26/21 07:00 BP 65/30 L 01/26/21 07:00 Pulse Ox 86 L 01/26/21 07:00 Weight - Most Recent: 226 lb 13.69 oz Med Orders - Current: Current Medications Acetaminophen (Acetaminophen 650 Mg Supp) 650 mg RECTAL Q4H PRN PRN Reason: Pain/Fever Atropine Sulfate (Atropine Sulfate Ophth 2 Ml Drops) 0 ml SL Q4H PRN PRN Reason: secretions Last Admin: 01/26/21 15:46 Dose: 4 drop Documented by: Lorazepam (Lorazepam Oral Concentrate 1mg/0.5ml U/D) 0.5 mg PO Q1H PRN PRN Reason: agitation/restlessness Last Admin: 01/25/21 23:20 Dose: 0.5 mg Documented by: Morphine Sulfate (Morphine 10 Mg/0.5 Ml Oral Syringe) 10 mg PO Q2H PRN PRN Reason: pain/air hunger Last Admin: 01/26/21 15:48 Dose: 10 mg Documented by: Discontinued Medications Acetaminophen (Acetaminophen 500 Mg Tab) 1,000 mg PO TID [facility] Last Admin: 01/07/21 11:48 Dose: Not Given Documented by: Acetaminophen (Acetaminophen 325 Mg Tab) 650 mg PO ONETIME PRN PRN Reason: [place] Stop: 01/06/21 21:00 Acetaminophen (Acetaminophen 500 Mg Tab) 1,000 mg PO Q8H PRN PRN Reason: PAIN Last Admin: 01/08/21 04:30 Dose: 1,000 mg Documented by: Acetaminophen (Acetaminophen 500 Mg Tab) 1,000 mg PO TID [facility] Last Admin: 01/22/21 14:32 Dose: Not Given Documented by: Atropine Sulfate (Atropine Sulfate Ophth 2 Ml Drops) 4 ml SL Q4H PRN PRN Reason: secretions Bisacodyl (Bisacodyl 10 Mg Supp) 10 mg RECTAL ONETIME ONE Stop: 01/22/21 11:31 Last Admin: 01/22/21 11:19 Dose: 10 mg Documented by: Bupivacaine HCl (Bupivacaine 0.5% 50 Ml Mdv) Confirm Administered Dose 50 ml .ROUTE .STK-MED ONE Stop: 01/07/21 07:03 Bupivacaine HCl (Bupivacaine 0.5% 50 Ml Mdv) Confirm Administered Dose 50 ml .ROUTE .STK-MED ONE Stop: 01/09/21 06:40 Bupivacaine HCl/Epinephrine Bitart (Bupivacaine 0.5%/Epinephrine 1:200,000 50 Ml Mdv) Confirm Administered Dose 50 ml .ROUTE .STK-MED ONE Stop: 01/11/21 07:54 Dexamethasone (Dexamethasone 4 Mg/Ml Sdv) Confirm Administered Dose 4 mg .ROUTE .STK-MED ONE Stop: 01/07/21 06:54 Dexamethasone (Dexamethasone 4 Mg/Ml Sdv) Confirm Administered Dose 4 mg .ROUTE .[employer]-MED ONE Stop: 01/11/21 06:57 Diphenhydramine HCl (Diphenhydramine 50 Mg/Ml Sdv) 50 mg IVPUSH ONETIME PRN PRN Reason: ALLERGIC RXN Stop: 01/06/21 21:00 Epinephrine HCl (Epinephrine 1 Mg/Ml Sdv) 0.3 mg IM ONETIME PRN PRN Reason: ALLERGIC RXN Stop: 01/06/21 21:00 Famotidine (Famotidine 20 Mg/2 Ml Sdv) 20 mg IV ONETIME PRN PRN Reason: ALLERGIC RXN Stop: 01/06/21 21:00 Fentanyl (Fentanyl 100 Mcg/2 Ml Sdv) Confirm Administered Dose 100 mcg .ROUTE .[employer]-MED ONE Stop: 01/07/21 06:52 Fentanyl (Fentanyl 100 Mcg/2 Ml Sdv) Confirm Administered Dose 200 mcg .ROUTE .STK-MED ONE Stop: 01/09/21 06:46 Fentanyl (Fentanyl 100 Mcg/2 Ml Sdv) 100 mcg .ROUTE .STK-MED ONE Stop: 01/09/21 07:01 Fentanyl (Fentanyl 100 Mcg/2 Ml Sdv) Confirm Administered Dose 100 mcg .ROUTE .STK-MED ONE Stop: 01/10/21 06:30 Fentanyl (Fentanyl 100 Mcg/2 Ml Sdv) Confirm Administered Dose 100 mcg .ROUTE .STK-MED ONE Stop: 01/11/21 06:57 Fentanyl (Fentanyl 100 Mcg/2 Ml Sdv) Confirm Administered Dose 100 mcg .ROUTE .STK-MED ONE Stop: 01/11/21 07:12 Fentanyl (Fentanyl 100 Mcg/2 Ml Sdv) Confirm Administered Dose 100 mcg .ROUTE .STK-MED ONE Stop: 01/13/21 07:13 Fentanyl (Fentanyl 100 Mcg/2 Ml Sdv) Confirm Administered Dose 100 mcg .ROUTE .STK-MED ONE Stop: 01/14/21 07:06 Fentanyl (Fentanyl 100 Mcg/2 Ml Sdv) Confirm Administered Dose 100 mcg .ROUTE .STK-MED ONE Stop: 01/15/21 07:26 Fentanyl (Fentanyl 100 Mcg/2 Ml Sdv) Confirm Administered Dose 100 mcg .ROUTE . STK-MED ONE Stop: 01/16/21 07:22 Fentanyl (Fentanyl 100 Mcg/2 Ml Sdv) Confirm Administered Dose 100 mcg .ROUTE .STK-MED ONE Stop: 01/18/21 07:11 Furosemide (Furosemide 20 Mg/2 Ml Vial) 20 mg IVPUSH ONETIME ONE Stop: 01/07/21 14:01 Last Admin: 01/07/21 13:16 Dose: 20 mg Documented by: Furosemide (Furosemide 20 Mg/2 Ml Vial) 20 mg IVPUSH Q6H [facility] Stop: 01/08/21 15:01 Last Admin: 01/08/21 14:39 Dose: 20 mg Documented by: Furosemide (Furosemide 20 Mg/2 Ml Vial) 20 mg IVPUSH Q10H [facility] Stop: 01/09/21 20:01 Last Admin: 01/09/21 19:42 Dose: 20 mg Documented by: Furosemide (Furosemide 20 Mg/2 Ml Vial) 20 mg IV ONETIME ONE Stop: 01/12/21 14:01 Last Admin: 01/12/21 13:20 Dose: 20 mg Documented by: Furosemide (Furosemide 20 Mg/2 Ml Vial) 20 mg IVPUSH ONETIME ONE Stop: 01/13/21 09:16 Last Admin: 01/13/21 16:40 Dose: 20 mg Documented by: Furosemide (Furosemide 20 Mg/2 Ml Vial) 20 mg IVPUSH ONETIME ONE Stop: 01/14/21 09:31 Last Admin: 01/14/21 09:28 Dose: 20 mg Documented by: Furosemide (Furosemide 20 Mg/2 Ml Vial) 20 mg IVPUSH ONETIME ONE Stop: 01/16/21 11:01 Last Admin: 01/16/21 10:28 Dose: 20 mg Documented by: Furosemide (Furosemide 20 Mg/2 Ml Vial) 20 mg IVPUSH ONETIME ONE Stop: 01/16/21 16:01 Last Admin: 01/16/21 15:44 Dose: 20 mg Documented by: Glycopyrrolate (Glycopyrrolate 0.2 Mg/Ml 5 Ml Mdv) Confirm Administered Dose 1 mg .ROUTE .STK-MED ONE Stop: 01/07/21 06:54 Glycopyrrolate (Glycopyrrolate 0.2 Mg/Ml 5 Ml Mdv) Confirm Administered Dose 1 mg .ROUTE .STK-MED ONE Stop: 01/11/21 06:57 Haloperidol Lactate (Haloperidol Lactate 5 Mg/Ml Sdv) 2.5 mg IVPUSH Q4H PRN PRN Reason: Agitation Heparin Sodium (Porcine) (Heparin Sodium 100 Units/Ml 5 Ml Syringe) Confirm Administered Dose 500 units .ROUTE .STK-MED ONE Stop: 01/07/21 07:03 Heparin Sodium (Porcine) (Heparin Sodium 100 Units/Ml 5 Ml Syringe) 300 units FLUSH ASDIRECTED PRN PRN Reason: IV Use Last Admin: 01/22/21 14:52 Dose: 300 units Documented by: Heparin Sodium (Porcine) (Heparin Sodium 100 Units/Ml 5 Ml Syringe) Confirm Administered Dose 1,000 units .ROUTE .STK-MED ONE Stop: 01/19/21 06:26 Last Admin: 01/19/21 07:00 Dose: 1,000 units Documented by: Lactated Ringer's (Ringers, Lactated) 1,000 mls @ 100 mls/hr IV ASDIRECTED [facility]O Lactated Ringer's (Ringers, Lactated) 1,000 mls @ 40 mls/hr IV ASDIRECTED [facility]O Potassium Phosphate 15 mmol/ (Premix) 250 mls @ 85 mls/hr IV Q3H [facility] Stop: 01/06/21 13:57 Last Admin: 01/06/21 11:20 Dose: 85 mls/hr Documented by: Magnesium Sulfate 2 gm/ Premix 50 mls @ 25 mls/hr IV Q6H [facility] Stop: 01/06/21 17:59 Last Admin: 01/06/21 09:15 Dose: 25 mls/hr Documented by: Magnesium Sulfate 2 gm/ Premix 50 mls @ 25 mls/hr IV Q6H [facility] Stop: 01/06/21 15:59 Last Admin: 01/06/21 14:23 Dose: 25 mls/hr Documented by: Albumin Human (Albumin 25%) 25 gm in 100 mls @ 25 mls/hr IV Q24H [facility] Stop: 01/09/21 19:59 Last Admin: 01/09/21 16:06 Dose: 25 mls/hr Documented by: Ceftriaxone Sodium 2 gm/ (Sodium Chloride) 50 mls @ 100 mls/hr IV Q24H [facility] Stop: 01/07/21 16:00 Last Admin: 01/07/21 13:51 Dose: 100 mls/hr Documented by: Acetaminophen 1,000 mg/ Premix 100 mls @ 400 mls/hr IV Q8H PRN PRN Reason: Pain Stop: 01/07/21 19:14 Last Admin: 01/07/21 04:55 Dose: 400 mls/hr Documented by: Lactated Ringer's (Ringers, Lactated) 1,000 mls @ 25 mls/hr IV ASDIRECTED [facility] Last Admin: 01/07/21 14:52 Dose: 25 mls/hr Documented by: Multivitamins/Minerals 10 ml/Zinc 1 ml/ Amino Ac/Electrol/Dextrose/Calcium 1,01 1 mls @ 82 mls/hr IV .BY DURATION [facility] Stop: 01/11/21 15:30 Last Admin: 01/10/21 17:54 Dose: 82 mls/hr Documented by: Amino Ac/Electrol/Dextrose/Calcium (Clinimix E 15) 1,000 mls @ 82 mls/hr IV .BY DURATION [facility] Stop: 01/11/21 15:30 Last Admin: 01/11/21 07:02 Dose: 82 mls/hr Documented by: Piperacillin/Tazobactam/ (Dextrose 3.375 gm/ Premix) 50 mls @ 100 mls/hr IV Q6H [facility] Last Admin: 01/11/21 10:28 Dose: Not Given Documented by: Doxycycline Hyclate 100 mg/ (Sodium Chloride) 100 mls @ 100 mls/hr IV Q12H [facility] Last Admin: 01/15/21 10:22 Dose: 100 mls/hr Documented by: Potassium Phosphate 22.5 mmole (/ Sodium Chloride) 107.5 mls @ 30 mls/hr IV Q4H [facility] Stop: 01/08/21 17:34 Last Admin: 01/08/21 15:41 Dose: 30 mls/hr Documented by: Sodium Chloride (Normal Saline) Confirm Administered Dose 10 mls @ as directed .ROUTE .STK-MED ONE Stop: 01/09/21 06:49 Potassium Phosphate 30 mmole/ (Sodium Chloride) 110 mls @ 20 mls/hr IV ONETIME ONE Stop: 01/09/21 15:29 Last Admin: 01/09/21 11:16 Dose: 20 mls/hr Documented by: Magnesium Sulfate 2 gm/ Premix 50 mls @ 25 mls/hr IV Q6H [facility] Stop: 01/11/21 05:59 Last Admin: 01/11/21 04:46 Dose: 25 mls/hr Documented by: Potassium Phosphate 30 mmole/ (Sodium Chloride) 110 mls @ 20 mls/hr IV ONETIME ONE Stop: 01/10/21 16:29 Last Admin: 01/10/21 11:28 Dose: 20 mls/hr Documented by: Multivitamins/Minerals 10 ml/Zinc 1 ml/ Amino Ac/Electrol/Dextrose/Calcium 1,011 mls @ 82 mls/hr IV .BY DURATION [facility] Stop: 01/13/21 19:00 Last Admin: 01/12/21 21:17 Dose: 82 mls/hr Documented by: Amino Ac/Electrol/Dextrose/Calcium (Clinimix E /15) 1,000 mls @ 82 mls/hr IV .BY DURATION [facility] Stop: 01/13/21 19:00 Last Admin: 01/13/21 09:56 Dose: 82 mls/hr Documented by: Albumin Human (Albumin 25%) 25 gm in 100 mls @ 25 mls/hr IV Q24H [facility] Stop: 01/15/21 16:59 Last Admin: 01/15/21 13:19 Dose: 25 mls/hr Documented by: Multivitamins/Minerals 10 ml/Zinc 1 ml/ Amino Ac/Electrol/Dextrose/Calcium 1,011 mls @ 82 mls/hr IV .BY DURATION [facility] Stop: 01/15/21 22:30 Last Admin: 01/15/21 00:09 Dose: 82 mls/hr Documented by: Amino Ac/Electrol/Dextrose/Calcium (Clinimix E 5/15) 1,000 mls @ 82 mls/hr IV .BY DURATION [facility] Stop: 01/15/21 22:30 Last Admin: 01/15/21 13:16 Dose: 82 mls/hr Documented by: Fat Emulsion Intravenous (Intralipid 20%) 100 mls @ 8.4 mls/hr IV Q48H [facility] Last Admin: 01/21/21 15:29 Dose: 8.4 mls/hr Documented by: Multivitamins/Minerals 10 ml/Zinc 1 ml/ Amino Ac/Electrol/Dextrose/Calcium 1,0 11 mls @ 82 mls/hr IV .BY DURATION [facility] Stop: 01/19/21 15:00 Last Admin: 01/19/21 05:38 Dose: 82 mls/hr Documented by: Amino Ac/Electrol/Dextrose/Calcium (Clinimix E 5/15) 1,000 mls @ 82 mls/hr IV .BY DURATION [facility] Stop: 01/19/21 15:00 Last Admin: 01/18/21 16:47 Dose: 82 mls/hr Documented by: Magnesium Sulfate 2 gm/ Premix 50 mls @ 25 mls/hr IV Q6HR [facility] Stop: 01/18/21 05:59 Last Admin: 01/18/21 04:36 Dose: 25 mls/hr Documented by: Acetaminophen 1,000 mg/ Premix 100 mls @ 400 mls/hr IV NOW ONE Stop: 01/18/21 21:36 Last Admin: 01/18/21 21:42 Dose: 400 mls/hr Documented by: Multivitamins/Minerals 10 ml/Zinc 1 ml/ Amino Ac/Electrol/Dextrose/Calcium 1,011 mls @ 82 mls/hr IV .BY DURATION [facility] Last Admin: 01/22/21 07:50 Dose: 82 mls/hr Documented by: Amino Ac/Electrol/Dextrose/Calcium (Clinimix E 5/15) 1,000 mls @ 82 mls/hr IV .BY DURATION [facility] Last Admin: 01/21/21 18:50 Dose: 82 mls/hr Documented by: Linezolid 600 mg/ Premix 300 mls @ 300 mls/hr IV Q12H [facility] Last Admin: 01/22/21 14:33 Dose: Not Given Documented by: Acetaminophen 1,000 mg/ Premix 100 mls @ 400 mls/hr IV NOW ONE Stop: 01/21/21 13:01 Last Admin: 01/21/21 13:04 Dose: 400 mls/hr Documented by: Ketoconazole (Ketoconazole 2% Crm 30 Gm Tube) 0 gm TOP ASDIRECTED PRN PRN Reason: DRESSING CHANGES Last Admin: 01/16/21 08:35 Dose: 1 applic Documented by: Lactobacillus Rhamnosus (Lactobacillus Rhamnosus Gg (Probiotic) Cap) 2 cap PO DAILY [facility] Last Admin: 01/22/21 08:31 Dose: Not Given Documented by: Lidocaine HCl (Lidocaine 2% Jelly 10 Ml Urojet) Confirm Administered Dose 10 ml .ROUTE .STK-MED ONE Stop: 01/05/21 18:51 Last Admin: 01/05/21 19:33 Dose: Not Given Documented by: Lidocaine/Epinephrine (Lidocaine 1% With Epinephrine 1:100,000 50 Ml Mdv) Confirm Administered Dose 50 ml .ROUTE .STK-MED ONE Stop: 01/07/21 07:03 Lidocaine/Epinephrine (Lidocaine 1% With Epinephrine 1:100,000 50 Ml Mdv) Confirm Administered Dose 50 ml .ROUTE .STK-MED ONE Stop: 01/09/21 06:40 Melatonin (Melatonin 3 Mg Tab) 9 mg PO BEDTIME [facility] Last Admin: 01/21/21 20:04 Dose: Not Given Documented by: Meropenem (Meropenem 500 Mg Sdv) Confirm Administered Dose 500 mg .ROUTE .STK- MED ONE Stop: 01/07/21 08:33 Meropenem (Meropenem 500 Mg Sdv) Confirm Administered Dose 500 mg .ROUTE .STK- MED ONE Stop: 01/09/21 06:40 Last Admin: 01/09/21 08:00 Dose: 500 mg Documented by: Meropenem (Mer[place] 500 Mg Sdv) Confirm Administered Dose 500 mg .ROUTE .STK- MED ONE Stop: 01/10/21 06:19 Last Admin: 01/10/21 07:31 Dose: 500 mg Documented by: Meropenem (Meropenem 500 Mg Sdv) Confirm Administered Dose 500 mg .ROUTE .STK- MED ONE Stop: 01/11/21 06:34 Meropenem (Meropenem 500 Mg Sdv) Confirm Administered Dose 500 mg .ROUTE .STK- MED ONE Stop: 01/12/21 06:36 Meropenem (Meropenem 500 Mg Sdv) Confirm Administered Dose 500 mg .ROUTE .STK- MED ONE Stop: 01/13/21 06:45 Last Admin: 01/13/21 07:30 Dose: 500 mg Documented by: Meropenem (Mer[place] 500 Mg Sdv) Confirm Administered Dose 500 mg .ROUTE .STK- MED ONE Stop: 01/14/21 07:13 Meropenem (Meropenem 500 Mg Sdv) Confirm Administered Dose 500 mg .ROUTE .STK- MED ONE Stop: 01/15/21 06:38 Last Admin: 01/15/21 08:08 Dose: 500 mg Documented by: Meropenem (Mer[place] 500 Mg Sdv) Confirm Administered Dose 500 mg .ROUTE .STK- MED ONE Stop: 01/17/21 06:46 Methylprednisolone Sodium Succinate (Methylprednisolone Sodium Succinate 125 M g/2 Ml Sdv) 125 mg IVPUSH ONETIME PRN PRN Reason: ALLERGIC RXN Stop: 01/06/21 21:00 Metoprolol Tartrate (Metoprolol Tartrate 5 Mg/5 Ml Sdv) 5 mg IVPUSH Q6H [facility] Last Admin: 01/08/21 11:23 Dose: Not Given Documented by: Metoprolol Tartrate (Metoprolol Tartrate 25 Mg Tab) 25 mg PO BID [facility] Last Admin: 01/22/21 08:32 Dose: Not Given Documented by: Morphine Sulfate (Morphine 2 Mg/Ml Syringe) 2 mg IVPUSH Q2H PRN PRN Reason: Pain Last Admin: 01/21/21 06:29 Dose: 2 mg Documented by: Morphine Sulfate (Morphine 10 Mg/0.5 Ml Oral Syringe) 5 mg PO Q1H PRN PRN Reason: pain/air hunger Last Admin: 01/24/21 13:04 Dose: 5 mg Documented by: Neostigmine Methylsulfate (Neostigmine Methylsulfate 1 Mg/Ml 5 Ml Syringe) Confirm Administered Dose 5 mg .ROUTE .STK-MED ONE Stop: 01/07/21 06:54 Neostigmine Methylsulfate (Neostigmine Methylsulfate 1 Mg/Ml 5 Ml Syringe) Confirm Administered Dose 5 mg .ROUTE .STK-MED ONE Stop: 01/11/21 06:57 Non-Formulary Medication (Casirivimab 120 Mg/Ml Vial) 600 mg SUBCUT ONETIME ONE Stop: 01/06/21 13:01 Last Admin: 01/06/21 12:57 Dose: 600 mg Documented by: Non-Formulary Medication (Imdevimab 120 Mg/Ml Vial) 600 mg SUBCUT ONETIME ONE Stop: 01/06/21 13:01 Last Admin: 01/06/21 12:57 Dose: 600 mg Documented by: Non-Formulary Medication (Central Total Parenteral Nutrition Bag) 0 ml IV ONETIME ONE Stop: 01/12/21 11:31 Last Admin: 01/12/21 13:10 Dose: Not Given Documented by: Non-Formulary Medication (Central Total Parenteral Nutrition Bag) 1,000 ml .XX .Continue Order [facility] Stop: 01/20/21 09:00 Non-Formulary Medication (Central Total Parenteral Nutrition Bag) 1,000 ml .XX .Continue Order [facility] Stop: 01/21/21 10:00 Non-Formulary Medication (Central Total Parenteral Nutrition Bag) 1,000 ml .XX .Continue Order [facility] Stop: 01/22/21 09:30 Ondansetron HCl (Ondansetron 4 Mg/2 Ml Sdv) 4 mg IVPUSH Q4H PRN PRN Reason: Nausea Last Admin: 01/18/21 09:42 Dose: 4 mg Documented by: Ondansetron HCl (Ondansetron 4 Mg/2 Ml Sdv) Confirm Administered Dose 4 mg .ROUTE .STK-MED ONE Stop: 01/07/21 06:54 Ondansetron HCl (Ondansetron 4 Mg/2 Ml Sdv) Confirm Administered Dose 4 mg .ROUTE .STK-MED ONE Stop: 01/11/21 06:57 Pantoprazole Sodium (Pantoprazole 40 Mg Tab.Cr) 40 mg PO ACBREAKFAST [facility] Last Admin: 01/22/21 08:31 Dose: Not Given Documented by: Phenylephrine HCl (Phenylephrine 1% 10 Mg/Ml Sdv) Confirm Administered Dose 10 mg .ROUTE .STK-MED ONE Stop: 01/09/21 06:48 Piperacillin Sod/Tazobactam Sod (Piperacillin/Tazobactam 3.375 Gm Vial) Confirm Administered Dose 3.375 gm .ROUTE .STK-MED ONE Stop: 01/07/21 08:41 Potassium Chloride (Potassium Chloride 20 Meq Tab.Er) 40 meq PO DAILY [facility] Last Admin: 01/22/21 08:31 Dose: Not Given Documented by: Propafenone HCl (Propafenone 150 Mg Tab) 225 mg PO BID [facility] Last Admin: 01/05/21 21:18 Dose: 225 mg Documented by: Propafenone HCl (Propafenone 150 Mg Tab) 225 mg PO TID [facility] Last Admin: 01/22/21 14:32 Dose: Not Given Documented by: Propofol (Propofol 200 Mg/20 Ml Sdv) Confirm Administered Dose 200 mg .ROUTE .STK-MED ONE Stop: 01/07/21 06:54 Propofol (Propofol 200 Mg/20 Ml Sdv) Confirm Administered Dose 400 mg .ROUTE .STK-MED ONE Stop: 01/09/21 06:47 Propofol (Propofol 200 Mg/20 Ml Sdv) 200 mg .ROUTE .STK-MED ONE Stop: 01/09/21 07:01 Propofol (Propofol 200 Mg/20 Ml Sdv) Confirm Administered Dose 200 mg .ROUTE .STK-MED ONE Stop: 01/10/21 06:30 Propofol (Propofol 200 Mg/20 Ml Sdv) Confirm Administered Dose 600 mg .ROUTE .STK-MED ONE Stop: 01/11/21 06:57 Propofol (Propofol 200 Mg/20 Ml Sdv) Confirm Administered Dose 400 mg .ROUTE .STK-MED ONE Stop: 01/13/21 07:06 Propofol (Propofol 200 Mg/20 Ml Sdv) Confirm Administered Dose 200 mg .ROUTE .ST K-MED ONE Stop: 01/14/21 07:05 Propofol (Propofol 200 Mg/20 Ml Sdv) Confirm Administered Dose 200 mg .ROUTE .STK-MED ONE Stop: 01/15/21 07:26 Propofol (Propofol 200 Mg/20 Ml Sdv) Confirm Administered Dose 200 mg .ROUTE .STK-MED ONE Stop: 01/16/21 07:22 Propofol (Propofol 200 Mg/20 Ml Sdv) Confirm Administered Dose 200 mg .ROUTE .STK-MED ONE Stop: 01/17/21 06:59 Propofol (Propofol 200 Mg/20 Ml Sdv) Confirm Administered Dose 200 mg .ROUTE .STK-MED ONE Stop: 01/17/21 07:03 Propofol (Propofol 200 Mg/20 Ml Sdv) Confirm Administered Dose 200 mg .ROUTE .STK-MED ONE Stop: 01/18/21 07:10 Propofol (Propofol 200 Mg/20 Ml Sdv) 200 mg .ROUTE .STK-MED ONE Stop: 01/12/21 07:01 Propofol (Propofol 200 Mg/20 Ml Sdv) Confirm Administered Dose 400 mg .ROUTE .STK-MED ONE Stop: 01/19/21 06:52 Rocuronium [place] (Rocuronium 50 Mg/5 Ml Vial) Confirm Administered Dose 50 mg .ROUTE .STK-MED ONE Stop: 01/07/21 06:54 Rocuronium [place] (Rocuronium 50 Mg/5 Ml Vial) Confirm Administered Dose 50 mg .ROUTE .STK-MED ONE Stop: 01/11/21 06:57 Rocuronium [place] (Rocuronium 50 Mg/5 Ml Vial) 50 mg IV .STK-MED ONE Stop: 01/10/21 07:01 Succinylcholine Chloride (Succinylcholine 200 Mg/10 Ml Mdv) Confirm Administered Dose 200 mg .ROUTE .STK-MED ONE Stop: 01/11/21 06:57 Tramadol HCl (Tramadol 50 Mg Tab) 50 mg PO Q6H PRN PRN Reason: Pain Last Admin: 01/17/21 12:40 Dose: 50 mg Documented by: - Exam Central Line Total Time: 3Days 12Hours Urinary Catheter Total Time: 14Days 22Hours General: Sedated, Lethargic Lungs: Clear to Auscultation, Normal Respiratory Effort Cardiovascular: Regular Rate, Regular Rhythm, No Murmurs - Patient Data Result Diagrams: 01/22/21 04:10 01/22/21 04:10 Sepsis Event Note - Evaluation Sepsis Screening Result: No Definite Risk - Focused Exam Vital Signs: Vital Signs Temp Pulse Resp BP Pulse Ox 01/26/21 07:00 101.1 F H 115 H 30 H 65/30 L 86 L - Problem List Review Problem List Initiated/Reviewed/Updated: Yes - Plan Plan:: ASSESSMENT AND PLAN- Rectal cancer status post APR-extensive surgery with complicated postoperative course. Postoperative course further complicated by COVID-19 infection. Patient has declined significantly over the past week. He is obtunded and unable to eat or drink anything. He has transition to comfort cares. Blood pressure and oxygenation have been low, he appears to be imminently dying. -CODE STATUS - DO NOT RESUSCITATE and DO NOT INTUBATE -Comfort care only -Morphine and lorazepam as needed for symptom management -Discontinue all other cares Chronic atrial fibrillation-heart rate has been suboptimally controlled since he has not been able to take his oral medications. -Discontinue oral medication since he is not able to take them Disposition-I would anticipate that the patient will in the next limited number of hours to maybe a couple of days. I do not think he is in any shape to make a transfer to the retirement for comfort care there.
[2021-01-27] MEDS: Atropine Sulfate Ophth 2 ML Drops SL PRN ×2 (02:29→07:41)
[2021-01-27] MEDS: Morphine 10 MG/0.5 ML Oral Syringe PO PRN ×3 (02:32→07:40)
[2021-01-27] MEDS: LORazepam ORAL Concentrate 1MG/0.5ML U/D PO PRN ×2 (04:59→07:40)
[2021-01-27 07:31] VITALS: BP 137/99; PULSE 52
--- NOTE | 2021-01-27 13:13 | PCM.DCSUM1 ---
Discharge Summary - Hospital Course Brief History: Mr. Infante is an 89-year-old gentleman who was admitted from the clinic with a pelvic infection complicating his recent surgery for rectal cancer. - Discharge Data Discharge Date: 01/27/21 Discharge Disposition: 20 Preliminary Cause of *Q: Respiratory Failure Event(s) Leading to Patient's *Q: Mr. Infante was an 89-year-old gentleman who was initially admitted with infection complicating a recent surgery. During the course of this hospital stay he refused interventions and family requested that he be placed on comfort cares only, with no further aggressive interventions or evaluation. Condition: - Referral to Home Health Primary Care Physician: PCP None - Patient Summary/Data Consults: Consultations 01/06/21 07:29 Consult to Physician [CONS] Routine Consulting Provider: Antonio Washington Call Completed to Consulting Physician: Yes Reason for Consult: med eval 01/21/21 07:01 Consult to Physician [CONS] Routine Consulting Provider: Antonio Washington Call Completed to Consulting Physician: Yes: will call at 8:00 am Reason for Consult: assist in care. unable to swallow medications Hospital Course: Mr. Infante is an 89-year-old gentleman who is admitted as a direct admission from the clinic for management of a postoperative infection. He had been previously admitted to this facility and underwent APR procedure for resection and management of a rectal carcinoma. He had been discharged recently from this facility but remained very weak. On admission he was started on IV antibiotic therapy as well as antibiotic therapy. The day following admission he was taken to the operating room by Dr. Duggan for exploratory surgery of his surgical wound. He was found to have evidence of a pelvic abscess which was drained and surgical drains were placed. Cultures were obtained from the wound which later grew out coag negative staph and strep viridans. Central line was placed and he was started on nutritional supplementation with TPN. On evaluation he was also found to have a urinary tract infection which also grew out strep viridans. He was treated for the infections with doxycycline and Zosyn. He was seen and followed by the hospitalist service for assistance in management of multiple medical problems. He has a known history of atrial fibrillation which remained fairly stable through his hospital stay. He was taken back to the operating r oom on a daily basis for debridement of his wound. On one of the debridement procedures was found to have a bladder wall tear, this was repaired and a suprapubic catheter was placed for management. Toward the end of his hospital stay he began to refuse medications and became more and more lethargic. Situation was reviewed with his who felt that he would not want further aggressive interventions or evaluation. All aggressive measures including antibiotic therapy and TPN were discontinued and he was placed on comfort cares only. Morphine and lorazepam were used as needed for comfort. He on the morning of January 27, no attempts were made at resuscitation as per family's previously expressed wishes. - Discharge Plan Home Medications: Home Meds Simvastatin [Zocor] 20 mg PO DAILY 02/17/13 [History] Multivit-Min/FA/Lycopen/Lutein [Centrum Silver Men Tablet] 1 each PO DAILY 03/05/20 [History] Magnesium Oxide 400 mg PO BID #60 tablet 06/04/20 [Rx] Potassium Chloride [Klor-Con M20] 40 meq PO DAILY #60 tab.er 06/04/20 [Rx] Capecitabine [Xeloda] 3 tab PO ASDIRECTED 08/09/20 [History] Ferrous Sulfate 325 mg PO DAILY 08/09/20 [History] Prochlorperazine Maleate [Compazine] 10 mg PO Q6H PRN 08/09/20 [History] Aspirin [Ecotrin EC] 81 mg PO DAILY 12/17/20 [History] Diphenoxylate HCl/Atropine [Lomotil] 2 tab PO QID 12/17/20 [History] Lactobacillus Rhamnosus GG [Culturelle] 1 cap PO BID 12/17/20 [History] Pantoprazole [ProTONIX] 40 mg PO DAILY 12/17/20 [History] Trolamine Salicylate [Ultracin T] 1 applic TOP ASDIRECTED 12/17/20 [History] atorvaSTATin [Lipitor] 10 mg PO DAILY 12/17/20 [History] Propafenone HCl 225 mg PO BID #60 tablet 12/31/20 [Rx] traMADol [Ultram] 50 mg PO Q6H PRN #20 tablet 12/31/20 [Rx] Patient Handouts: COVID-19, Incision and Drainage, Care After - Discharge Summary/Plan Comment DC Time >30 min.: No Total # of Minutes for Discharge Time: 25 - Patient Data Vitals - Most Recent: Last Vital Signs Temp 98.8 F 01/27/21 07:00 Pulse 52 L 01/27/21 07:00 Resp 32 H 01/27/21 07:00 BP 137/99 H 01/27/21 07:00 Pulse Ox 78 L 01/27/21 07:00 Weight - Most Recent: 226 lb 13.69 oz I&O - Last 24 hours: Intake & Output 01/26/21 01/27/21 01/27/21 22:59 06:59 14:59 Output Total 200 Balance -200 Med Orders - Current: Current Medications Acetaminophen (Acetaminophen 650 Mg Supp) 650 mg RECTAL Q4H PRN PRN Reason: Pain/Fever Atropine Sulfate (Atropine Sulfate Ophth 2 Ml Drops) 0 ml SL Q4H PRN PRN Reason: secretions Last Admin: 01/27/21 07:41 Dose: 4 drop Documented by: Lorazepam (Lorazepam Oral Concentrate 1mg/0.5ml U/D) 0.5 mg PO Q1H PRN PRN Reason: agitation/restlessness Last Admin: 01/27/21 07:40 Dose: 0.5 mg Documented by: Morphine Sulfate (Morphine 10 Mg/0.5 Ml Oral Syringe) 10 mg PO Q2H PRN PRN Reason: pain/air hunger Last Admin: 01/27/21 07:40 Dose: 10 mg Documented by: Discontinued Medications Acetaminophen (Acetaminophen 500 Mg Tab) 1,000 mg PO TID [facility] Last Admin: 01/07/21 11:48 Dose: Not Given Documented by: Acetaminophen (Acetaminophen 325 Mg Tab) 650 mg PO ONETIME PRN PRN Reason: HEADACHE,CHILLS Stop: 01/06/21 21:00 Acetaminophen (Acetaminophen 500 Mg Tab) 1,000 mg PO Q8H PRN PRN Reason: PAIN Last Admin: 01/08/21 04:30 Dose: 1,000 mg Documented by: Acetaminophen (Acetaminophen 500 Mg Tab) 1,000 mg PO TID [facility] Last Admin: 01/22/21 14:32 Dose: Not Given Documented by: Atropine Sulfate (Atropine Sulfate Ophth 2 Ml Drops) 4 ml SL Q4H PRN PRN Reason: secretions Bisacodyl (Bisacodyl 10 Mg Supp) 10 mg RECTAL ONETIME ONE Stop: 01/22/21 11:31 Last Admin: 01/22/21 11:19 Dose: 10 mg Documented by: Bupivacaine HCl (Bupivacaine 0.5% 50 Ml Mdv) Confirm Administered Dose 50 ml .ROUTE .STK-MED ONE Stop: 01/07/21 07:03 Bupivacaine HCl (Bupivacaine 0.5% 50 Ml Mdv) Confirm Administered Dose 50 ml .ROUTE .STK-MED ONE Stop: 01/09/21 06:40 Bupivacaine HCl/Epinephrine Bitart (Bupivacaine 0.5%/Epinephrine 1:200,000 50 Ml Mdv) Confirm Administered Dose 50 ml .ROUTE .STK-MED ONE Stop: 01/11/21 07:54 Dexamethasone (Dexamethasone 4 Mg/Ml Sdv) Confirm Administered Dose 4 mg .ROUTE .STK-MED ONE Stop: 01/07/21 06:54 Dexamethasone (Dexamethasone 4 Mg/Ml Sdv) Confirm Administered Dose 4 mg .ROUTE .STK-MED ONE Stop: 01/11/21 06:57 Diphenhydramine HCl (Diphenhydramine 50 Mg/Ml Sdv) 50 mg IVPUSH ONETIME PRN PRN Reason: ALLERGIC RXN Stop: 01/06/21 21:00 Epinephrine HCl (Epinephrine 1 Mg/Ml Sdv) 0.3 mg IM ONETIME PRN PRN Reason: ALLERGIC RXN Stop: 01/06/21 21:00 Famotidine (Famotidine 20 Mg/2 Ml Sdv) 20 mg IV ONETIME PRN PRN Reason: ALLERGIC RXN Stop: 01/06/21 21:00 Fentanyl (Fentanyl 100 Mcg/2 Ml Sdv) Confirm Administered Dose 100 mcg .ROUTE .STK-MED ONE Stop: 01/07/21 06:52 Fentanyl (Fentanyl 100 Mcg/2 Ml Sdv) Confirm Administered Dose 200 mcg .ROUTE .STK-MED ONE Stop: 01/09/21 06:46 Fentanyl (Fentanyl 100 Mcg/2 Ml Sdv) 100 mcg .ROUTE .STK-MED ONE Stop: 01/09/21 07:01 Fentanyl (Fentanyl 100 Mcg/2 Ml Sdv) Confirm Administered Dose 100 mcg .ROUTE .STK-MED ONE Stop: 01/10/21 06:30 Fentanyl (Fentanyl 100 Mcg/2 Ml Sdv) Confirm Administered Dose 100 mcg .ROUTE .STK-MED ONE Stop: 01/11/21 06:57 Fentanyl (Fentanyl 100 Mcg/2 Ml Sdv) Confirm Administered Dose 100 mcg .ROUTE .STK-MED ONE Stop: 01/11/21 07:12 Fentanyl (Fentanyl 100 Mcg/2 Ml Sdv) Confirm Administered Dose 100 mcg .ROUTE .STK-MED ONE Stop: 01/13/21 07:13 Fentanyl (Fentanyl 100 Mcg/2 Ml Sdv) Confirm Administered Dose 100 mcg .ROUTE .STK-MED ONE Stop: 01/14/21 07:06 Fentanyl (Fentanyl 100 Mcg/2 Ml Sdv) Confirm Administered Dose 100 mcg .ROUTE .STK-MED ONE Stop: 01/15/21 07:26 Fentanyl (Fentanyl 100 Mcg/2 Ml Sdv) Confirm Administered Dose 100 mcg .ROUTE .STK-MED ONE Stop: 01/16/21 07:22 Fentanyl (Fentanyl 100 Mcg/2 Ml Sdv) Confirm Administered Dose 100 mcg .ROUTE .STK-MED ONE Stop: 01/18/21 07:11 Furosemide (Furosemide 20 Mg/2 Ml Vial) 20 mg IVPUSH ONETIME ONE Stop: 01/07/21 14:01 Last Admin: 01/07/21 13:16 Dose: 20 mg Documented by: Furosemide (Furosemide 20 Mg/2 Ml Vial) 20 mg IVPUSH Q6H [facility] Stop: 01/08/21 15:01 Last Admin: 01/08/21 14:39 Dose: 20 mg Documented by: Furosemide (Furosemide 20 Mg/2 Ml Vial) 20 mg IVPUSH Q10H [facility] Stop: 01/09/21 20:01 Last Admin: 01/09/21 19:42 Dose: 20 mg Documented by: Furosemide (Furosemide 20 Mg/2 Ml Vial) 20 mg IV ONETIME ONE Stop: 01/12/21 14:01 Last Admin: 01/12/21 13:20 Dose: 20 mg Documented by: Furosemide (Furosemide 20 Mg/2 Ml Vial) 20 mg IVPUSH ONETIME ONE Stop: 01/13/21 09:16 Last Admin: 01/13/21 16:40 Dose: 20 mg Documented by: Furosemide (Furosemide 20 Mg/2 Ml Vial) 20 mg IVPUSH ONETIME ONE Stop: 01/14/21 09:31 Last Admin: 01/14/21 09:28 Dose: 20 mg Documented by: Furosemide (Furosemide 20 Mg/2 Ml Vial) 20 mg IVPUSH ONETIME ONE Stop: 01/16/21 11:01 Last Admin: 01/16/21 10:28 Dose: 20 mg Documented by: Furosemide (Furosemide 20 Mg/2 Ml Vial) 20 mg IVPUSH ONETIME ONE Stop: 01/16/21 16:01 Last Admin: 01/16/21 15:44 Dose: 20 mg Documented by: Glycopyrrolate (Glycopyrrolate 0.2 Mg/Ml 5 Ml Mdv) Confirm Administered Dose 1 mg .ROUTE .STK-MED ONE Stop: 01/07/21 06:54 Glycopyrrolate (Glycopyrrolate 0.2 Mg/Ml 5 Ml Mdv) Confirm Administered Dose 1 mg .ROUTE .STK-MED ONE Stop: 01/11/21 06:57 Haloperidol Lactate (Haloperidol Lactate 5 Mg/Ml Sdv) 2.5 mg IVPUSH Q4H PRN PRN Reason: Agitation Heparin Sodium (Porcine) (Heparin Sodium 100 Units/Ml 5 Ml Syringe) Confirm Administered Dose 500 units .ROUTE .STK-MED ONE Stop: 01/07/21 07:03 Heparin Sodium (Porcine) (Heparin Sodium 100 Units/Ml 5 Ml Syringe) 300 units FLUSH ASDIRECTED PRN PRN Reason: IV Use Last Admin: 01/22/21 14:52 Dose: 300 units Documented by: Heparin Sodium (Porcine) (Heparin Sodium 100 Units/Ml 5 Ml Syringe) Confirm Administered Dose 1,000 units .ROUTE .STK-MED ONE Stop: 01/19/21 06:26 Last Admin: 01/19/21 07:00 Dose: 1,000 units Documented by: Lactated Ringer's (Ringers, Lactated) 1,000 mls @ 100 mls/hr IV ASDIRECTED [facility] Lactated Ringer's (Ringers, Lactated) 1,000 mls @ 40 mls/hr IV ASDIRECTED [facility] Potassium Phosphate 15 mmol/ (Premix) 250 mls @ 85 mls/hr IV Q3H [facility] Stop: 01/06/21 13:57 Last Admin: 01/06/21 11:20 Dose: 85 mls/hr Documented by: Magnesium Sulfate 2 gm/ Premix 50 mls @ 25 mls/hr IV Q6H [facility] Stop: 01/06/21 17:59 Last Admin: 01/06/21 09:15 Dose: 25 mls/hr Documented by: Magnesium Sulfate 2 gm/ Premix 50 mls @ 25 mls/hr IV Q6H [facility] Stop: 01/06/21 15:59 Last Admin: 01/06/21 14:23 Dose: 25 mls/hr Documented by: Albumin Human (Albumin 25%) 25 gm in 100 mls @ 25 mls/hr IV Q24H [facility] Stop: 01/09/21 19:59 Last Admin: 01/09/21 16:06 Dose: 25 mls/hr Documented by: Ceftriaxone Sodium 2 gm/ (Sodium Chloride) 50 mls @ 100 mls/hr IV Q24H [facility] Stop: 01/07/21 16:00 Last Admin: 01/07/21 13:51 Dose: 100 mls/hr Documented by: Acetaminophen 1,000 mg/ Premix 100 mls @ 400 mls/hr IV Q8H PRN PRN Reason: Pain Stop: 01/07/21 19:14 Last Admin: 01/07/21 04:55 Dose: 400 mls/hr Documented by: Lactated Ringer's (Ringers, Lactated) 1,000 mls @ 25 mls/hr IV ASDIRECTED [facility] Last Admin: 01/07/21 14:52 Dose: 25 mls/hr Documented by: Multivitamins/Minerals 10 ml/Zinc 1 ml/ Amino Ac/Electrol/Dextrose/Calcium 1,011 mls @ 82 mls/hr IV .BY DURATION [facility] Stop: 01/11/21 15:30 Last Admin: 01/10/21 17:54 Dose: 82 mls/hr Documented by: Amino Ac/Electrol/Dextrose/Calcium (Clinimix E 5/15) 1,000 mls @ 82 mls/hr IV .BY DURATION [facility] Stop: 01/11/21 15:30 Last Admin: 01/11/21 07:02 Dose: 82 mls/hr Documented by: Piperacillin/Tazobactam/ (Dextrose 3.375 gm/ Premix) 50 mls @ 100 mls/hr IV Q6H [facility] Last Admin: 01/11/21 10:28 Dose: Not Given Documented by: Doxycycline Hyclate 100 mg/ (Sodium Chloride) 100 mls @ 100 mls/hr IV Q12H [facility] Last Admin: 01/15/21 10:22 Dose: 100 mls/hr Documented by: Potassium Phosphate 22.5 mmole (/ Sodium Chloride) 107.5 mls @ 30 mls/hr IV Q4H [facility] Stop: 01/08/21 17:34 Last Admin: 01/08/21 15:41 Dose: 30 mls/hr Documented by: Sodium Chloride (Normal Saline) Confirm Administered Dose 10 mls @ as directed .ROUTE .STK-MED ONE Stop: 01/09/21 06:49 Potassium Phosphate 30 mmole/ (Sodium Chloride) 110 mls @ 20 mls/hr IV ONETIME ONE Stop: 01/09/21 15:29 Last Admin: 01/09/21 11:16 Dose: 20 mls/hr Documented by: Magnesium Sulfate 2 gm/ Premix 50 mls @ 25 mls/hr IV Q6H [facility] Stop: 01/11/21 05:59 Last Admin: 01/11/21 04:46 Dose: 25 mls/hr Documented by: Potassium Phosphate 30 mmole/ (Sodium Chloride) 110 mls @ 20 mls/hr IV ONETIME ONE Stop: 01/10/21 16:29 Last Admin: 01/10/21 11:28 Dose: 20 mls/hr Documented by: Multivitamins/Minerals 10 ml/Zinc 1 ml/ Amino Ac/Electrol/Dextrose/Calcium 1,011 mls @ 82 mls/hr IV .BY DURATION [facility] Stop: 01/13/21 19:00 Last Admin: 01/12/21 21:17 Dose: 82 mls/hr Documented by: Amino Ac/Electrol/Dextrose/Calcium (Clinimix E 5/15) 1,000 mls @ 82 mls/hr IV .BY DURATION [facility] Stop: 01/13/21 19:00 Last Admin: 01/13/21 09:56 Dose: 82 mls/hr Documented by: Albumin Human (Albumin 25%) 25 gm in 100 mls @ 25 mls/hr IV Q24H [facility] Stop: 01/15/21 16:59 Last Admin: 01/15/21 13:19 Dose: 25 mls/hr Documented by: Multivitamins/Minerals 10 ml/Zinc 1 ml/ Amino Ac/Electrol/Dextrose/Calcium 1,011 mls @ 82 mls/hr IV .BY DURATION [facility] Stop: 01/15/21 22:30 Last Admin: 01/15/21 00:09 Dose: 82 mls/hr Documented by: Amino Ac/Electrol/Dextrose/Calcium (Clinimix E 5/15) 1,000 mls @ 82 mls/hr IV .BY DURATION [facility] Stop: 01/15/21 22:30 Last Admin: 01/15/21 13:16 Dose: 82 mls/hr Documented by: Fat Emulsion Intravenous (Intralipid 20%) 100 mls @ 8.4 mls/hr IV Q48H [facility] Last Admin: 01/21/21 15:29 Dose: 8.4 mls/hr Documented by: Multivitamins/Minerals 10 ml/Zinc 1 ml/ Amino Ac/Electrol/Dextrose/Calcium 1,011 mls @ 82 mls/hr IV .BY DURATION [facility] Stop: 01/19/21 15:00 Last Admin: 01/19/21 05:38 Dose: 82 mls/hr Documented by: Amino Ac/Electrol/Dextrose/Calcium (Clinimix E 5/15) 1,000 mls @ 82 mls/hr IV .BY DURATION [facility] Stop: 01/19/21 15:00 Last Admin: 01/18/21 16:47 Dose: 82 mls/hr Documented by: Magnesium Sulfate 2 gm/ Premix 50 mls @ 25 mls/hr IV Q6HR [facility] Stop: 01/18/21 05:59 Last Admin: 01/18/21 04:36 Dose: 25 mls/hr Documented by: Acetaminophen 1,000 mg/ Premix 100 mls @ 400 mls/hr IV NOW ONE Stop: 01/18/21 21:36 Last Admin: 01/18/21 21:42 Dose: 400 mls/hr Documented by: Multivitamins/Minerals 10 ml/Zinc 1 ml/ Amino Ac/Electrol/Dextrose/Calcium 1,011 mls @ 82 mls/hr IV .BY DURATION [facility] Last Admin: 01/22/21 07:50 Dose: 82 mls/hr Documented by: Amino Ac/Electrol/Dextrose/Calcium (Clinimix E 5/15) 1,000 mls @ 82 mls/hr IV .BY DURATION [facility] Last Admin: 01/21/21 18:50 Dose: 82 mls/hr Documented by: Linezolid 600 mg/ Premix 300 mls @ 300 mls/hr IV Q12H [facility] Last Admin: 01/22/21 14:33 Dose: Not Given Documented by: Acetaminophen 1,000 mg/ Premix 100 mls @ 400 mls/hr IV NOW ONE Stop: 01/21/21 13:01 Last Admin: 01/21/21 13:04 Dose: 400 mls/hr Documented by: Ketoconazole (Ketoconazole 2% Crm 30 Gm Tube) 0 gm TOP ASDIRECTED PRN PRN Reason: DRESSING CHANGES Last Admin: 01/16/21 08:35 Dose: 1 applic Documented by: Lactobacillus Rhamnosus (Lactobacillus Rhamnosus Gg (Probiotic) Cap) 2 cap PO DAILY [facility] Last Admin: 01/22/21 08:31 Dose: Not Given Documented by: Lidocaine HCl (Lidocaine 2% Jelly 10 Ml Urojet) Confirm Administered Dose 10 ml .ROUTE .STK-MED ONE Stop: 01/05/21 18:51 Last Admin: 01/05/21 19:33 Dose: Not Given Documented by: Lidocaine/Epinephrine (Lidocaine 1% With Epinephrine 1:100,000 50 Ml Mdv) Confirm Administered Dose 50 ml .ROUTE .STK-MED ONE Stop: 01/07/21 07:03 Lidocaine/Epinephrine (Lidocaine 1% With Epinephrine 1:100,000 50 Ml Mdv) Confirm Administered Dose 50 ml .ROUTE .STK-MED ONE Stop: 01/09/21 06:40 Melatonin (Melatonin 3 Mg Tab) 9 mg PO BEDTIME [facility] Last Admin: 01/21/21 20:04 Dose: Not Given Documented by: Meropenem (Meropenem 500 Mg Sdv) Confirm Administered Dose 500 mg .ROUTE .STK- MED ONE Stop: 01/07/21 08:33 Meropenem (Meropenem 500 Mg Sdv) Confirm Administered Dose 500 mg .ROUTE .STK- MED ONE Stop: 01/09/21 06:40 Last Admin: 01/09/21 08:00 Dose: 500 mg Documented by: Meropenem (Meropenem 500 Mg Sdv) Confirm Administered Dose 500 mg .ROUTE .STK- MED ONE Stop: 01/10/21 06:19 Last Admin: 01/10/21 07:31 Dose: 500 mg Documented by: Meropenem (Meropenem 500 Mg Sdv) Confirm Administered Dose 500 mg .ROUTE .STK- MED ONE Stop: 01/11/21 06:34 Meropenem (Meropenem 500 Mg Sdv) Confirm Administered Dose 500 mg .ROUTE .STK- MED ONE Stop: 01/12/21 06:36 Meropenem (Meropenem 500 Mg Sdv) Confirm Administered Dose 500 mg .ROUTE .STK- MED ONE Stop: 01/13/21 06:45 Last Admin: 01/13/21 07:30 Dose: 500 mg Documented by: Meropenem (Meropenem 500 Mg Sdv) Confirm Administered Dose 500 mg .ROUTE .STK- MED ONE Stop: 01/14/21 07:13 Meropenem (Meropenem 500 Mg Sdv) Confirm Administered Dose 500 mg .ROUTE .STK- MED ONE Stop: 01/15/21 06:38 Last Admin: 01/15/21 08:08 Dose: 500 mg Documented by: Meropenem (Meropenem 500 Mg Sdv) Confirm Administered Dose 500 mg .ROUTE .STK- MED ONE Stop: 01/17/21 06:46 Methylprednisolone Sodium Succinate (Methylprednisolone Sodium Succinate 125 Mg/2 Ml Sdv) 125 mg IVPUSH ONETIME PRN PRN Reason: ALLERGIC RXN Stop: 01/06/21 21:00 Metoprolol Tartrate (Metoprolol Tartrate 5 Mg/5 Ml Sdv) 5 mg IVPUSH Q6H [facility] Last Admin: 01/08/21 11:23 Dose: Not Given Documented by: Metoprolol Tartrate (Metoprolol Tartrate 25 Mg Tab) 25 mg PO BID [facility] Last Admin: 01/22/21 08:32 Dose: Not Given Documented by: Morphine Sulfate (Morphine 2 Mg/Ml Syringe) 2 mg IVPUSH Q2H PRN PRN Reason: Pain Last Admin: 01/21/21 06:29 Dose: 2 mg Documented by: Morphine Sulfate (Morphine 10 Mg/0.5 Ml Oral Syringe) 5 mg PO Q1H PRN PRN Reason: pain/air hunger Last Admin: 01/24/21 13:04 Dose: 5 mg Documented by: Neostigmine Methylsulfate (Neostigmine Methylsulfate 1 Mg/Ml 5 Ml Syringe) Confirm Administered Dose 5 mg .ROUTE .STK-MED ONE Stop: 01/07/21 06:54 Neostigmine Methylsulfate (Neostigmine Methylsulfate 1 Mg/Ml 5 Ml Syringe) Confirm Administered Dose 5 mg .ROUTE .STK-MED ONE Stop: 01/11/21 06:57 Non-Formulary Medication (Casirivimab 120 Mg/Ml Vial) 600 mg SUBCUT ONETIME ONE Stop: 01/06/21 13:01 Last Admin: 01/06/21 12:57 Dose: 600 mg Documented by: Non-Formulary Medication (Imdevimab 120 Mg/Ml Vial) 600 mg SUBCUT ONETIME ONE Stop: 01/06/21 13:01 Last Admin: 01/06/21 12:57 Dose: 600 mg Documented by: Non-Formulary Medication (Central Total Parenteral Nutrition Bag) 0 ml IV ONETIME ONE Stop: 01/12/21 11:31 Last Admin: 01/12/21 13:10 Dose: Not Given Documented by: Non-Formulary Medication (Central Total Parenteral Nutrition Bag) 1,000 ml .XX .Continue Order [facility] Stop: 01/20/21 09:00 Non-Formulary Medication (Central Total Parenteral Nutrition Bag) 1,000 ml .XX .Continue Order [facility] Stop: 01/21/21 10:00 Non-Formulary Medication (Central Total Parenteral Nutrition Bag) 1,000 ml .XX .Continue Order [facility] Stop: 01/22/21 09:30 Ondansetron HCl (Ondansetron 4 Mg/2 Ml Sdv) 4 mg IVPUSH Q4H PRN PRN Reason: Nausea Last Admin: 01/18/21 09:42 Dose: 4 mg Documented by: Ondansetron HCl (Ondansetron 4 Mg/2 Ml Sdv) Confirm Administered Dose 4 mg .ROUTE .STK-MED ONE Stop: 01/07/21 06:54 Ondansetron HCl (Ondansetron 4 Mg/2 Ml Sdv) Confirm Administered Dose 4 mg .ROUTE .STK-MED ONE Stop: 01/11/21 06:57 Pantoprazole Sodium (Pantoprazole 40 Mg Tab.Cr) 40 mg PO ACBREAKFAST [facility] Last Admin: 01/22/21 08:31 Dose: Not Given Documented by: Phenylephrine HCl (Phenylephrine 1% 10 Mg/Ml Sdv) Confirm Administered Dose 10 mg .ROUTE .STK-MED ONE Stop: 01/09/21 06:48 Piperacillin Sod/Tazobactam Sod (Piperacillin/Tazobactam 3.375 Gm Vial) Confirm Administered Dose 3.375 gm .ROUTE .STK-MED ONE Stop: 01/07/21 08:41 Potassium Chloride (Potassium Chloride 20 Meq Tab.Er) 40 meq PO DAILY [facility] Last Admin: 01/22/21 08:31 Dose: Not Given Documented by: Propafenone HCl (Propafenone 150 Mg Tab) 225 mg PO BID [facility] Last Admin: 01/05/21 21:18 Dose: 225 mg Documented by: Propafenone HCl (Propafenone 150 Mg Tab) 225 mg PO TID [facility] Last Admin: 01/22/21 14:32 Dose: Not Given Documented by: Propofol (Propofol 200 Mg/20 Ml Sdv) Confirm Administered Dose 200 mg .ROUTE .STK-MED ONE Stop: 01/07/21 06:54 Propofol (Propofol 200 Mg/20 Ml Sdv) Confirm Administered Dose 400 mg .ROUTE .STK-MED ONE Stop: 01/09/21 06:47 Propofol (Propofol 200 Mg/20 Ml Sdv) 200 mg .ROUTE .STK-MED ONE Stop: 01/09/21 07:01 Propofol (Propofol 200 Mg/20 Ml Sdv) Confirm Administered Dose 200 mg .ROUTE .STK-MED ONE Stop: 01/10/21 06:30 Propofol (Propofol 200 Mg/20 Ml Sdv) Confirm Administered Dose 600 mg .ROUTE .STK-MED ONE Stop: 01/11/21 06:57 Propofol (Propofol 200 Mg/20 Ml Sdv) Confirm Administered Dose 400 mg .ROUTE .STK-MED ONE Stop: 01/13/21 07:06 Propofol (Propofol 200 Mg/20 Ml Sdv) Confirm Administered Dose 200 mg .ROUTE .STK-MED ONE Stop: 01/14/21 07:05 Propofol (Propofol 200 Mg/20 Ml Sdv) Confirm Administered Dose 200 mg .ROUTE .STK-MED ONE Stop: 01/15/21 07:26 Propofol (Propofol 200 Mg/20 Ml Sdv) Confirm Administered Dose 200 mg .ROUTE .STK-MED ONE Stop: 01/16/21 07:22 Propofol (Propofol 200 Mg/20 Ml Sdv) Confirm Administered Dose 200 mg .ROUTE .STK-MED ONE Stop: 01/17/21 06:59 Propofol (Propofol 200 Mg/20 Ml Sdv) Confirm Administered Dose 200 mg .ROUTE .STK-MED ONE Stop: 01/17/21 07:03 Propofol (Propofol 200 Mg/20 Ml Sdv) Confirm Administered Dose 200 mg .ROUTE .STK-MED ONE Stop: 01/18/21 07:10 Propofol (Propofol 200 Mg/20 Ml Sdv) 200 mg .ROUTE .STK-MED ONE Stop: 01/12/21 07:01 Propofol (Propofol 200 Mg/20 Ml Sdv) Confirm Administered Dose 400 mg .ROUTE .STK-MED ONE Stop: 01/19/21 06:52 Rocuronium [place] (Rocuronium 50 Mg/5 Ml Vial) Confirm Administered Dose 50 mg .ROUTE .STK-MED ONE Stop: 01/07/21 06:54 Rocuronium [place] (Rocuronium 50 Mg/5 Ml Vial) Confirm Administered Dose 50 mg .ROUTE .STK-MED ONE Stop: 01/11/21 06:57 Rocuronium [place] (Rocuronium 50 Mg/5 Ml Vial) 50 mg IV .STK-MED ONE Stop: 01/10/21 07:01 Succinylcholine Chloride (Succinylcholine 200 Mg/10 Ml Mdv) Confirm Administered Dose 200 mg .ROUTE .STK-MED ONE Stop: 01/11/21 06:57 Tramadol HCl (Tramadol 50 Mg Tab) 50 mg PO Q6H PRN PRN Reason: Pain Last Admin: 01/17/21 12:40 Dose: 50 mg Documented by: - Exam General: Reports: Other ()
--- NOTE | 2021-01-28 13:43 | OR ---
DATE OF PROCEDURE: 01/13/2021 SURGEON: Mohsen Duggan MD PREOPERATIVE DIAGNOSES: 1. Status post repair of urethral perforation. 2. Persistent necrotic tissue, pelvic and perineal wound. POSTOPERATIVE DIAGNOSES: 1. Status post repair of urethral perforation. 2. Persistent necrotic tissue, pelvic and perineal wound. OPERATIVE PROCEDURES: 1. Cystourethrogram (86195). 2. Placement of urethral catheter (22105). 3. Debridement of necrotic soft tissue involving pelvic and perineal wound (65043). ANESTHESIA: IV sedation. INDICATION FOR PROCEDURE: The patient is status post repair of a urethral injury yesterday. At that time, a urinary catheter could not be placed across the area of involvement and at this point the plan will be to proceed with a cystourethrogram to assess the patency of the urethra and then the associated extravasation, and if appropriate, placement of the urethral catheter. The patient will have additional examination of the open pelvic and perineal wound and debridement of any additional soft tissue necrosis. Potential risks of the procedure have been reviewed with the patient's and she wishes to proceed. DETAILS OF PROCEDURE: The patient was taken to the operating room, and after IV sedation was administered, was placed in a lithotomy position, and the previous packing was removed. Some additional necrotic soft tissue involving the fatty layers, fascia, and muscular layers posterolaterally were then debrided, and at that point, no significant bleeding or other problems were noted. At this point, a urethral catheter was placed into the urethra for a range of 2 to 3 cm using water soluble contrast and ongoing fluoroscopy. This was injected and this did show flow through the urethra and into the urinary bladder. With this in place, the urethral catheter which was a 14-Kinyarwanda catheter was gently placed further. Additional dye was then injected which confirmed that the catheter was now within the urinary bladder and the catheter was inflated with 10 mL of saline and at that point simply plugged. The patient will continue to use the suprapubic catheter for his primary urinary drainage. However, the urethral catheter would be left in place for a period of week allowing the urethra hopefully to heal without significant stricturing. At this point, pelvic packing was placed and the procedure then concluded. There were no evident complications. Mohsen Duggan MD /[id number]
--- NOTE | 2021-01-28 14:13 | OR ---
DATE OF PROCEDURE: 01/14/2021 SURGEON: Mohsen Duggan MD PREOPERATIVE DIAGNOSIS: Large open perineal and pelvic wound with evolving soft tissue necrosis. POSTOPERATIVE DIAGNOSIS: Large open perineal and pelvic wound with evolving soft tissue necrosis. OPERATIVE PROCEDURE: Examination of large open perineal and pelvic wound with: 1. Debridement of soft tissue necrosis (97297). 2. Dressing change under anesthesia (14950). ANESTHESIA: IV sedation. INDICATION FOR PROCEDURE: The patient is here for daily dressing change and examination of the wound with debridement as necessary. Potential risks had been reviewed with the patient's and she wishes to proceed. DETAILS OF PROCEDURE: The patient was taken to the operating room and placed in a lithotomy position. IV sedation was administered after which the previous pelvic packing was removed. The patient was noted to have some additional necrotic soft tissue posteriorly and laterally and this was debrided and sent as a specimen. No significant bleeding was noted at this point. One additional note is the area of the urethral repair was palpated and this appeared to be remaining intact, i.e. there was no palpable urethral catheter within the visible or palpable field. The wound was then packed with iodoform gauze and the patient taken to the recovery room in satisfactory condition. Mohsen Duggan MD /[id number]
--- NOTE | 2021-01-28 14:22 | OR ---
DATE OF PROCEDURE: 01/11/2021 SURGEON: Mohsen Duggan MD PREOPERATIVE DIAGNOSES: 1. Large pelvic and perineal open wound with focal soft tissue necrosis. 2. Perforated proximal urethra. POSTOPERATIVE DIAGNOSES: 1. Large pelvic and perineal open wound with focal soft tissue necrosis. 2. Perforated proximal urethra. PROCEDURES PERFORMED: 1. Exploration of large pelvic and perineal wound with debridement of focal soft tissue necrosis (30048). 2. Placement of suprapubic catheter (48639). 3. Repair of urethral disruption (45822). ANESTHESIA: General. INDICATIONS FOR PROCEDURE: This is an 89-year-old male with previously documented large pelvic and perineal open wound. He was noted yesterday to have a perforation of the proximal urethra posteriorly, and the plan at this point will be to proceed with exploration of perineal and pelvic wound with debridement as necessary, placement of suprapubic catheter, and repair of the urethral disruption. Potential risks of the procedure were reviewed with the patient's , and she wishes to proceed. Specific potential risk is primarily that of permanent scarring or obstruction of the urethral repair long- term suprapubic catheter usage was reviewed with the patient's , and she wishes to proceed. DETAILS OF PROCEDURE: The patient was taken to the operating room, and after general endotracheal anesthesia was induced, he was placed in a lithotomy position. The previous pelvic and perineal packing were removed, and the abdomen and perineal areas were then prepped and draped. The perineal and pelvic wound was initially addressed. Some necrotic soft tissue within the lateral and posterior areas of the perineal and pelvic wall which would involve the fatty tissue, fascia, and some musculature layers were then debrided down to what appeared to be reasonably viable tissue. The specimens were then delivered from the field. Attempt at placement of urethral catheter was then undertaken. This could not be passed proximal to the proximal urethra, and at that point, we elected to repair the urethra with 2 layers of 4-0 and 3-0 Vicryl stitch. Once this was accomplished, a perineal packing was then placed with iodoform gauze. Of note, the urethral disruption was quite high, up to the level of the entrance to the bladder, i.e., in the prostatomembranous segment of urethra. Attention was then taken to the placement of suprapubic catheter. A transverse suprapubic incision was made and carried down through the skin and subcutaneous tissue, and the midline fascia musculature was retracted laterally, and at that point, with further dissection, entered the area of bladder with clear urine being easily identified. A stab wound just to the right of the primary incision was then made, and a 16-[place] Gan catheter was then placed through the skin, subcutaneous tissue, fascia, and into the urinary bladder which was inflated with 10 mL of saline. A pursestring stitch urinary bladder in 2 layers with 3-0 Vicryl stitch was then placed. The overlying fascia was approximated with #1 Vicryl stitch, subcutaneous tissue with some 4-0 Vicryl stitch, and the skin with xander. The catheter was sutured at the skin level after being pulled up snugly with a 3-0 nylon stitch. At that point, the catheter was noted to be draining satisfactorily and placed to dependent drainage and a dressing applied. The patient was taken to the recovery room in satisfactory condition. There were no evident complications. Mohsen Duggan MD /[id number]
--- NOTE | 2021-01-28 14:37 | OR ---
DATE OF PROCEDURE: 01/09/2021 SURGEON: Mohsen Duggan MD PREOPERATIVE DIAGNOSIS: Focal necrosis of perineal and pelvic open wound. POSTOPERATIVE DIAGNOSIS: Focal necrosis of perineal and pelvic open wound. PROCEDURE PERFORMED: Examination of pelvic and perineal open wound with: 1. Debridement of necrotic soft tissue (58993). 2. Dressing change under anesthesia (25447). ANESTHESIA: IV sedation. INDICATION FOR PROCEDURE: The patient is undergoing daily wound inspection, debridement, and dressing change under anesthesia. Potential risks have been reviewed with the patient's , and she wishes to proceed. DETAILS OF PROCEDURE: The patient was taken to the operating room and placed in a lithotomy position. The previous pelvic pack was after the patient received some IV sedation. The patient was noted to have some additional necrotic soft tissue involving the subcutaneous tissue, fascia, and musculature posteriorly and laterally within the pelvic and perineal wound. The wound otherwise was beginning to develop significant improved granulation tissue. Some of the necrotic tissue was then debrided and a dressing then applied with Iodoform gauze. There were no other complications. Mohsen Duggan MD /[id number]
--- NOTE | 2021-01-28 14:52 | OR ---
DATE OF PROCEDURE: 01/12/2021 SURGEON: Mohsen Duggan MD PREOPERATIVE DIAGNOSIS: Evolving focal necrosis of the open perineal and pelvic wound. POSTOPERATIVE DIAGNOSIS: Evolving focal necrosis of the open perineal and pelvic wound. PROCEDURE: Exploration of a large perineal and pelvic open wound with: 1. Debridement of areas of necrotic soft tissue (27990). 2. Dressing change under anesthesia (43301). ANESTHESIA: IV sedation. INDICATION FOR PROCEDURE: The patient is undergoing daily dressing changes and debridement of a large pelvic and perineal open wound involving soft tissue necrosis. Plan is to proceed with exploration and debridement as indicated. Potential risks have been reviewed with the patient's and consent obtained. DETAILS OF PROCEDURE: The patient was taken to the operating room and placed in a lithotomy position. IV sedation was administered after which the previous packing was removed and the wound was inspected. Some additional focal necrotic soft tissue involving the layers of subcutaneous tissue, fascia, and the musculature was then debrided posteriorly and laterally, and at that point, no bleeding, no further problems noted. The wound was then packed with iodoform gauze and the patient taken to the recovery room in satisfactory condition. There were no evident complications. Mohsen Duggan MD /[id number]
== END 2021-01-27 12:12 | disposition expired | DRG 856 ==
LOC: JP.ICU 14:41 → JP.2SS 01-07 17:03 → JP.MS 01-16 09:43
PROVIDERS: ADMIT Surgery; ATTEND Surgery
PROC: 0W9J0ZZ Drainage of Pelvic Cavity, Open Approach (ICD-10-PCS; 2021-01-05)
PROC: 0JBB0ZZ Excision of Perineum Subcutaneous Tissue and Fascia, Open Approach (ICD-10-PCS; 2021-01-05)
PROC: 05H333Z Insertion of Infusion Device into Right Innominate Vein, Percutaneous Approach (ICD-10-PCS; 2021-01-05)
PROC: XW033N5 Introduction of Meropenem-vaborbactam Anti-infective into Peripheral Vein, Percutaneous Approach, New Technology Group 5 (ICD-10-PCS; 2021-01-05)
PROC: 30233N1 Transfusion of Nonautologous Red Blood Cells into Peripheral Vein, Percutaneous Approach (ICD-10-PCS; principal; 2021-01-06)
PROC: 8E0ZXY6 Isolation (ICD-10-PCS; 2021-01-06)
PROC: XW033H6 Introduction of Other New Technology Monoclonal Antibody into Peripheral Vein, Percutaneous Approach, New Technology Group 6 (ICD-10-PCS; 2021-01-06)
PROC: 3E0336Z Introduction of Nutritional Substance into Peripheral Vein, Percutaneous Approach (ICD-10-PCS; 2021-01-07)
PROC: 0JBB0ZZ Excision of Perineum Subcutaneous Tissue and Fascia, Open Approach (ICD-10-PCS; 2021-01-09)
PROC: 0JB80ZZ Excision of Abdomen Subcutaneous Tissue and Fascia, Open Approach (ICD-10-PCS; 2021-01-09)
PROC: 0JBB0ZZ Excision of Perineum Subcutaneous Tissue and Fascia, Open Approach (ICD-10-PCS; 2021-01-10)
PROC: 0JB80ZZ Excision of Abdomen Subcutaneous Tissue and Fascia, Open Approach (ICD-10-PCS; 2021-01-11)
PROC: 0TQD0ZZ Repair Urethra, Open Approach (ICD-10-PCS; 2021-01-11)
PROC: 0T9B30Z Drainage of Bladder with Drainage Device, Percutaneous Approach (ICD-10-PCS; 2021-01-11)
PROC: 0JB80ZZ Excision of Abdomen Subcutaneous Tissue and Fascia, Open Approach (ICD-10-PCS; 2021-01-12)
PROC: 0JB80ZZ Excision of Abdomen Subcutaneous Tissue and Fascia, Open Approach (ICD-10-PCS; 2021-01-13)
PROC: 0T9B30Z Drainage of Bladder with Drainage Device, Percutaneous Approach (ICD-10-PCS; 2021-01-13)
PROC: BT1BYZZ Fluoroscopy of Bladder and Urethra using Other Contrast (ICD-10-PCS; 2021-01-13)
PROC: 0JB80ZZ Excision of Abdomen Subcutaneous Tissue and Fascia, Open Approach (ICD-10-PCS; 2021-01-14)
PROC: 0JBB0ZZ Excision of Perineum Subcutaneous Tissue and Fascia, Open Approach (ICD-10-PCS; 2021-01-15)
PROC: 0JBB0ZZ Excision of Perineum Subcutaneous Tissue and Fascia, Open Approach (ICD-10-PCS; 2021-01-16)
PROC: 0JBB0ZZ Excision of Perineum Subcutaneous Tissue and Fascia, Open Approach (ICD-10-PCS; 2021-01-17)
PROC: 02H633Z Insertion of Infusion Device into Right Atrium, Percutaneous Approach (ICD-10-PCS; 2021-01-19)
DX: T81.49XA Infection following a procedure, other surgical site, initial encounter (principal); U07.1 COVID-19; K65.1 Peritoneal abscess; C20 Malignant neoplasm of rectum; I48.20 Chronic atrial fibrillation, unspecified; I96 Gangrene, not elsewhere classified; R44.3 Hallucinations, unspecified; N39.0 Urinary tract infection, site not specified; D84.9 Immunodeficiency, unspecified; Z66 Do not resuscitate; D64.9 Anemia, unspecified; I25.10 Atherosclerotic heart disease of native coronary artery without angina pectoris; E78.00 Pure hypercholesterolemia, unspecified; I10 Essential (primary) hypertension; G47.30 Sleep apnea, unspecified; I35.8 Other nonrheumatic aortic valve disorders; R62.7 Adult failure to thrive; M19.90 Unspecified osteoarthritis, unspecified site; G56.00 Carpal tunnel syndrome, unspecified upper limb; Z96.659 Presence of unspecified artificial knee joint; F03.90 Unspecified dementia, unspecified severity, without behavioral disturbance, psychotic disturbance, mood disturbance, and anxiety; B95.7 Other staphylococcus as the cause of diseases classified elsewhere; E66.9 Obesity, unspecified; H35.30 Unspecified macular degeneration; B95.4 Other streptococcus as the cause of diseases classified elsewhere; Z93.3 Colostomy status; Z51.5 Encounter for palliative care; Z91.030 Bee allergy status; Z88.8 Allergy status to other drugs, medicaments and biological substances; Z79.82 Long term (current) use of aspirin; Z79.899 Other long term (current) drug therapy; Z98.49 Cataract extraction status, unspecified eye; I25.2 Old myocardial infarction; Z68.37 Body mass index [BMI] 37.0-37.9, adult
CPT/HCPCS: 36415; 36430; 51700; 51702; 71045; 71045-26; 74176; 76000; 76000-26; 80053; 81001; 83735; 83880; 84100; 85025; 85027; 85379; 86140; 86850; 86900; 86901; 86920; 86922; 87040; 87070; 87075; 87077; 87086; 87088; 87186; 87205; 88304; 88312; 88341; 88342; 94762; 97110-GP; 97140-GP; 97162-GP; 97530-GP; 99223; 99231; 99232; 99233; 99238; A9270-GY; J0131; J0330; J0696; J1100; J1642; J1940; J2020; J2185; J2270; J2370; J2405; J2543; J2704; J2710; J3010; J3475; J3490; J7120; M0243; P9016; P9047; Q0243; U0002